=== PATIENT | female | born 1955 | race African-American/Black ===

== ENCOUNTER 2017-07-02 10:08 | Day surgery (SDC) | payer MEDICARE, MEDICAID ==
[2017-07-02] MEDS ORDERED: Zoledronic Acid 4 MG in Sodium Chloride 0.9% 100 ML IVPB SCH (10:30)
[2017-07-02 10:44] VITALS: BP 123/66; TEMP 98.2
== END 2017-07-02 11:42 | disposition home or self-care (01) ==
LOC: ONC/OP 10:08
PROVIDERS: ATTEND Internal Medicine Medical Oncology
DX: Z51.11 Encounter for antineoplastic chemotherapy (principal); C90.00 Multiple myeloma not having achieved remission; J45.909 Unspecified asthma, uncomplicated; I10 Essential (primary) hypertension; M19.90 Unspecified osteoarthritis, unspecified site; E78.5 Hyperlipidemia, unspecified; D64.9 Anemia, unspecified; Z88.5 Allergy status to narcotic agent; Z88.2 Allergy status to sulfonamides; Z88.6 Allergy status to analgesic agent
CPT/HCPCS: 36415; 80053; 82248; 83615; 83883; 84100; 84165; 84550; 85025; 86334; 96365; J3489; J7050

== ENCOUNTER 2017-07-30 11:11 | Day surgery (SDC) | payer MEDICARE, MEDICAID ==
[2017-07-30] MEDS ORDERED: Sodium Chloride 0.9% 20 ML ONE (11:40)
[2017-07-30 11:46] VITALS: BP 118/60; TEMP 99.4
[2017-07-30] MEDS ORDERED: Dexamethasone 4 MG TAB PO SCH (12:00)
[2017-07-30] MEDS ORDERED: Zoledronic Acid 4 MG in Sodium Chloride 0.9% 100 ML IVPB SCH (12:00)
== END 2017-07-30 12:38 | disposition home or self-care (01) ==
LOC: ONC/OP 11:11
PROVIDERS: ATTEND Internal Medicine Medical Oncology
DX: Z51.11 Encounter for antineoplastic chemotherapy (principal); C90.00 Multiple myeloma not having achieved remission; J45.909 Unspecified asthma, uncomplicated; M25.569 Pain in unspecified knee; G89.29 Other chronic pain; I10 Essential (primary) hypertension; E78.00 Pure hypercholesterolemia, unspecified; D64.9 Anemia, unspecified; M19.90 Unspecified osteoarthritis, unspecified site; Z88.5 Allergy status to narcotic agent; Z88.2 Allergy status to sulfonamides; Z88.8 Allergy status to other drugs, medicaments and biological substances; Z98.890 Other specified postprocedural states; Z91.81 History of falling; Z87.11 Personal history of peptic ulcer disease
CPT/HCPCS: 36415; 80053; 82248; 83615; 83883; 84100; 84165; 84550; 86334; 96365; A4216; J3489; J7050

== ENCOUNTER 2017-08-10 10:05 | Emergency (ER) | payer MEDICARE, MEDICAID ==
[2017-08-10 10:48] LABS: #Eosinphils 0.3 thou/uL (0.0-0.7); #Lymphocytes 1.6 thou/uL (1.20-3.40); #Monocytes 1.9 thou/uL (0.11-0.59); #Neutrophils 8.9 thou/uL (1.40-6.50); %Basophils 0.3 % (0.0-1.0); %Eosinophils 2.4 % (0.0-10.0); %Lymphocytes 12.5 % (21.0-51.0); %Monocytes 14.8 % (0.0-10.0); Hematocrit 30.9 % (36.0-47.0); Mean Platelet Volume 9.1 fL (7.4-10.4); Red Blood Cell (RBC) Count 3.33 mill/uL (4.20-5.40); White Blood Cell (WBC) Count 12.7 thou/uL (4.8-10.8)
[2017-08-10 11:05] LABS: ALT (SGPT) 25 U/L (8-55); AST (SGOT) 17 U/L (5-34); Alkaline Phosphatase 77 U/L (40-150); Anion Gap 13 mmol/L (10-20); BUN (Urea Nitrogen) 15 mg/dL (9.8-20.1); Bilirubin, Total 0.8 mg/dL (0.2-1.2); Calc. Creatinine Clearance 0 mL/min (70-130); Calcium 9.4 mg/dL (7.8-10.44); Carbon Dioxide 22 mmol/L (23-31); Chloride 109 mmol/L (98-107); Estimated GFR-MDRD 65; Lipase 17 U/L (8-78); Protein, Total 6.8 g/dL (6.0-8.3)
[2017-08-10 11:11] LABS: Bilirubin Negative (Negative); Blood, Urine Negative (Negative); Glucose, Urine (Dipstick) Negative (Negative); Ketone, Urine Negative (Negative); Nitrite Negative (Negative); Protein, Urine (Dipstick) 30 mg/dL (Neg-Trace); Urobilinogen 0.2 mg/dL (0.2-1.0)
[2017-08-10 11:26] LABS: RBC/HPF None Seen HPF (0-3)
[2017-08-10 11:27] LABS: Bacteria/HPF 1+ HPF (None Seen); Squamous Epithelial 0-3 HPF (0-3); WBC/HPF 0-3 HPF (0-3)
[2017-08-10] MEDS ORDERED: Acetaminophen 500 MG TAB ONE (12:10)
[2017-08-10] MEDS ORDERED: Potassium Chloride 20 MEQ TAB ONE (12:10)
--- NOTE | 2017-08-10 13:23 | CT ---
ABDOMEN AND PELVIC CT SCAN WITH IV CONTRAST: HISTORY: A 62-year-old female with suprapubic abdominal pain for several weeks with nausea, urine frequency, and dysuria. COMPARISON: 03/30/16. FINDINGS: The lung bases are clear. The liver, gallbladder, pancreas, spleen, and adrenal glands are unremark able. Small circumscribed low-attenuation foci are noted within the kidneys, statistically small cy sts. No renal calculus or acute obstruction. There is evidence for left and sigmoid colon diver ticulosis with some pericolonic fat stranding and minimal wall thickening at the left colon and sigm oid colon junction, evidence for acute diverticulitis without evidence for drainable abscess or free intraperitoneal air. Uterus and adnexa are unremarkable. No CT evidence for acute appendicitis. IMPRESSION: Evidence for acute sigmoid diverticulitis without evidence for abscess or free intraperitoneal air. Other stable findings as above. Small right paraumbilical fat-containing hernia. POS: [facility]
[2017-08-10] MEDS ORDERED: Ciprofloxacin 500 MG TAB ONE (13:55)
[2017-08-10] MEDS ORDERED: metroNIDAZOLE 250 MG TAB ONE (13:55)
[2017-08-10] MEDS ORDERED: ISOVUE-370 76%-LOCM 1 ML ONE (16:06)
== END 2017-08-10 14:12 | disposition home or self-care (01) ==
LOC: ERS 10:05
DX: K57.92 Diverticulitis of intestine, part unspecified, without perforation or abscess without bleeding (principal); E11.9 Type 2 diabetes mellitus without complications; I10 Essential (primary) hypertension; C90.00 Multiple myeloma not having achieved remission; M19.90 Unspecified osteoarthritis, unspecified site; Z79.82 Long term (current) use of aspirin; Z79.84 Long term (current) use of oral hypoglycemic drugs; Z79.899 Other long term (current) drug therapy
CPT/HCPCS: 36415; 74177; 80053; 81003; 81015; 83690; 85025; 96372

== ENCOUNTER 2017-09-03 11:11 | Day surgery (SDC) | payer MEDICARE, MEDICAID ==
[2017-09-03] MEDS ORDERED: Zoledronic Acid 4 MG in Sodium Chloride 0.9% 100 ML IVPB SCH (11:30)
[2017-09-03 11:48] VITALS: BP 121/68; TEMP 98.1
[2017-09-03] MEDS ORDERED: Sodium Chloride 0.9% 20 ML ONE (12:05)
== END 2017-09-03 13:31 | disposition home or self-care (01) ==
LOC: ONC/OP 11:11
PROVIDERS: ATTEND Internal Medicine Medical Oncology
DX: Z51.11 Encounter for antineoplastic chemotherapy (principal); C90.00 Multiple myeloma not having achieved remission; I10 Essential (primary) hypertension; Z88.5 Allergy status to narcotic agent; Z88.2 Allergy status to sulfonamides; Z98.890 Other specified postprocedural states
CPT/HCPCS: 36415; 80053; 82248; 83615; 83883; 84100; 84165; 84550; 86334; 96365; A4216; J3489; J7050

== ENCOUNTER 2017-10-01 11:46 | Day surgery (SDC) | payer MEDICARE, MEDICAID ==
[2017-10-01] MEDS ORDERED: Sodium Chloride 0.9% 20 ML ONE (11:58)
[2017-10-01 12:17] VITALS: BP 114/55; TEMP 99.3
[2017-10-01] MEDS ORDERED: Zoledronic Acid 4 MG in Sodium Chloride 0.9% 100 ML IVPB SCH (13:00)
== END 2017-10-01 13:45 | disposition home or self-care (01) ==
LOC: ONC/OP 11:46
PROVIDERS: ATTEND Internal Medicine Medical Oncology
DX: C90.00 Multiple myeloma not having achieved remission (principal); J45.909 Unspecified asthma, uncomplicated; I10 Essential (primary) hypertension; E78.5 Hyperlipidemia, unspecified; M19.90 Unspecified osteoarthritis, unspecified site; Z88.5 Allergy status to narcotic agent; Z88.2 Allergy status to sulfonamides; Z79.899 Other long term (current) drug therapy
CPT/HCPCS: 36415; 80053; 82248; 83615; 83883; 84100; 84165; 84550; 86334; 96365; A4216; J3489; J7050

== ENCOUNTER 2017-10-29 12:02 | Day surgery (SDC) | payer MEDICARE, MEDICAID ==
[2017-10-29] MEDS ORDERED: Zoledronic Acid 4 MG, Admixture Fee 1 EACH in Sodium Chloride 0.9% 100 ML IVPB SCH (12:15)
[2017-10-29] MEDS ORDERED: Sodium Chloride 0.9% 20 ML ONE (12:23)
== END 2017-10-29 13:28 | disposition home or self-care (01) ==
LOC: ONC/OP 12:02 → EDUNIT# 12:02 → ONC/OP 13:28
PROVIDERS: ATTEND Internal Medicine Medical Oncology
DX: Z51.11 Encounter for antineoplastic chemotherapy (principal); C90.00 Multiple myeloma not having achieved remission; J45.909 Unspecified asthma, uncomplicated; I10 Essential (primary) hypertension; E78.5 Hyperlipidemia, unspecified; M19.90 Unspecified osteoarthritis, unspecified site; Z88.5 Allergy status to narcotic agent; Z88.2 Allergy status to sulfonamides; Z79.899 Other long term (current) drug therapy
CPT/HCPCS: 36415; 80053; 82248; 83615; 83883; 84100; 84165; 84550; 86334; 96365; A4216; J3489; J7050

== ENCOUNTER 2017-12-10 10:16 | Day surgery (SDC) | payer MEDICARE, MEDICAID ==
[2017-12-10] MEDS ORDERED: Zoledronic Acid 4 MG, Admixture Fee 1 EACH in Sodium Chloride 0.9% 100 ML IVPB SCH (10:45)
[2017-12-10] MEDS ORDERED: Sodium Chloride 0.9% 20 ML ONE (11:17)
== END 2017-12-10 14:32 | disposition home or self-care (01) ==
LOC: ONC/OP 10:16
PROVIDERS: ATTEND Internal Medicine Medical Oncology
DX: Z51.11 Encounter for antineoplastic chemotherapy (principal); C90.00 Multiple myeloma not having achieved remission; J45.909 Unspecified asthma, uncomplicated; I10 Essential (primary) hypertension; E78.00 Pure hypercholesterolemia, unspecified; E78.5 Hyperlipidemia, unspecified; Z88.2 Allergy status to sulfonamides; Z88.5 Allergy status to narcotic agent; Z79.82 Long term (current) use of aspirin; Z79.899 Other long term (current) drug therapy
CPT/HCPCS: 96365; A4216; J3489; J7050

== ENCOUNTER 2018-01-07 11:04 | Day surgery (SDC) | payer MEDICARE, MEDICAID ==
[2018-01-07] MEDS ORDERED: Zoledronic Acid 4 MG in Sodium Chloride 0.9% 100 ML IVPB SCH (11:15)
[2018-01-07] MEDS ORDERED: Sodium Chloride 0.9% 20 ML ONE (11:19)
[2018-01-07 11:42] VITALS: BP 116/56; TEMP 98.6
== END 2018-01-07 12:21 | disposition home or self-care (01) ==
LOC: ONC/OP 11:04
PROVIDERS: ATTEND Internal Medicine Medical Oncology
DX: Z51.11 Encounter for antineoplastic chemotherapy (principal); C90.00 Multiple myeloma not having achieved remission; D63.0 Anemia in neoplastic disease; J45.909 Unspecified asthma, uncomplicated; I10 Essential (primary) hypertension; E78.00 Pure hypercholesterolemia, unspecified; E78.5 Hyperlipidemia, unspecified; Z88.5 Allergy status to narcotic agent; Z88.2 Allergy status to sulfonamides; Z79.52 Long term (current) use of systemic steroids; Z79.84 Long term (current) use of oral hypoglycemic drugs; Z79.899 Other long term (current) drug therapy
CPT/HCPCS: 80053; 82248; 82728; 83615; 83883; 84100; 84165; 84550; 86334; 96365; A4216; J3489; J7050

== ENCOUNTER 2018-02-04 11:34 | Day surgery (SDC) | payer MEDICARE, MEDICAID ==
[2018-02-04] MEDS ORDERED: Zoledronic Acid 4 MG in Sodium Chloride 0.9% 100 ML IVPB SCH (12:00)
[2018-02-04] MEDS ORDERED: Sodium Chloride 0.9% 20 ML ONE (12:38)
[2018-02-04 13:25] VITALS: BP 135/68; TEMP 98.8
== END 2018-02-04 13:41 | disposition home or self-care (01) ==
LOC: ONC/OP 11:34
PROVIDERS: ATTEND Internal Medicine Medical Oncology
DX: Z51.11 Encounter for antineoplastic chemotherapy (principal); C90.00 Multiple myeloma not having achieved remission; J45.909 Unspecified asthma, uncomplicated; I10 Essential (primary) hypertension; E78.00 Pure hypercholesterolemia, unspecified; D63.0 Anemia in neoplastic disease; E78.5 Hyperlipidemia, unspecified; M19.90 Unspecified osteoarthritis, unspecified site; Z88.2 Allergy status to sulfonamides; Z88.5 Allergy status to narcotic agent; Z79.82 Long term (current) use of aspirin; Z79.52 Long term (current) use of systemic steroids; Z79.84 Long term (current) use of oral hypoglycemic drugs; Z79.899 Other long term (current) drug therapy
CPT/HCPCS: 80053; 82248; 83615; 83883; 84100; 84165; 84550; 86334; 96365; A4216; J3489; J7050

== ENCOUNTER 2018-02-26 15:42 | Emergency (ER) | payer MEDICARE, MEDICAID ==
[2018-02-26] MEDS ORDERED: Ondansetron ODT 4 MG TAB ONE (18:00)
[2018-02-26 18:11] LABS: Bilirubin Negative (Negative); Blood, Urine Small (Negative); Clarity CLOUDY (Clear); Glucose, Urine (Dipstick) Negative (Negative); Leukocyte Negative (Negative); Nitrite Negative (Negative); Protein, Urine (Dipstick) 100 mg/dL (Neg-Trace); Specific Gravity, Urine 1.008 (1.002-1.036); Urobilinogen 0.2 mg/dL (0.2-1.0); pH, Urine 7.5 (5.0-9.0)
[2018-02-26 18:13] LABS: Bacteria/HPF Rare-Few HPF (None Seen); Hyaline Casts/LPF 0-3 HYALINE CAST LPF (0-3 Hyaline); Pathc Cast-AUWi Flag 0.14 (0-2.49); RBC/HPF 0-3 HPF (0-3)
[2018-02-26 18:14] LABS: Yeast-AUWi Flag 39.3 (0-25.0)
[2018-02-26 18:22] LABS: ALT (SGPT) 37 U/L (8-55); AST (SGOT) 29 U/L (5-34); Alkaline Phosphatase 85 U/L (40-150); Anion Gap 15 mmol/L (10-20); BUN (Urea Nitrogen) 11 mg/dL (9.8-20.1); Bilirubin, Total 0.7 mg/dL (0.2-1.2); CK (CPK) 167 U/L (29-168); Calc. Creatinine Clearance 0 mL/min (70-130); Calcium 8.8 mg/dL (7.8-10.44); Carbon Dioxide 18 mmol/L (23-31); Chloride 112 mmol/L (98-107); Estimated GFR-MDRD 40; Globulin 2.9 g/dL (2.4-3.5); Glucose 80 mg/dL (80-115); Lipase 30 U/L (8-78); Protein, Total 6.9 g/dL (6.0-8.3); Sodium 142 mmol/L (136-145)
[2018-02-26 18:26] LABS: CKMB 0.9 ng/mL (0-6.6)
[2018-02-26 18:30] LABS: Yeast-All Forms None Seen HPF (None Seen)
[2018-02-26 18:30] LABS: Potassium 2.9 mmol/L (3.5-5.1)
[2018-02-26] MEDS ORDERED: Potassium Chloride 20 MEQ TAB ONE (18:53)
[2018-02-26 18:56] LABS: Anisocytosis SLIGHT = 6-15 cells (100X) (0-5/hpf); Band 13 % (5-11); Eosinophils 2 % (0-10); Hemoglobin 8.1 g/dL (12.0-16.0); Lymphocytes 37 % (21-51); MDiff Complete? YES; Mean Corpuscular HGB CONC 33.7 g/dL (32.0-36.0); Mean Corpuscular Hemoglobin 31.6 pg (27.0-31.0); Mean Corpuscular Volume 93.6 fl (81.0-99.0); Monocytes 9 % (0-10); Neutrophil 38 % (42-75); Nucleated RBC 4 % (0); PLT Morphology Comment Appears Decreased; Platelet Count 117 thou/uL (130-400); Polychromasia SLIGHT = 2-3 cells (100X) (0-2/hpf); Red Blood Cell (RBC) Count 2.57 mill/uL (4.20-5.40); Tear Drops SLIGHT = 2-5 cells (100X) (0-1/hpf); White Blood Cell (WBC) Count 5.3 thou/uL (4.8-10.8)
== END 2018-02-26 20:25 | disposition home or self-care (01) ==
LOC: ERS 15:42
DX: R19.7 Diarrhea, unspecified (principal); E11.9 Type 2 diabetes mellitus without complications; I10 Essential (primary) hypertension; Z79.899 Other long term (current) drug therapy; Z79.82 Long term (current) use of aspirin
CPT/HCPCS: 36416; 80053; 81003; 81015; 82553; 83690; 84484; 85025; 87045; 87046; 87081; 87186; 87324; 87449; 93005; 96360; 96361; 96372; Q0162

== ENCOUNTER 2018-03-11 12:03 | Day surgery (SDC) | payer MEDICARE, MEDICAID ==
[2018-03-11] MEDS ORDERED: Zoledronic Acid 4 MG in Sodium Chloride 0.9% 100 ML IVPB SCH (12:45)
== END 2018-03-11 13:57 | disposition home or self-care (01) ==
LOC: ONC/OP 12:03
PROVIDERS: ATTEND Internal Medicine Medical Oncology
DX: Z51.11 Encounter for antineoplastic chemotherapy (principal); C90.00 Multiple myeloma not having achieved remission; J45.909 Unspecified asthma, uncomplicated; I10 Essential (primary) hypertension; E78.00 Pure hypercholesterolemia, unspecified; D64.9 Anemia, unspecified; M19.90 Unspecified osteoarthritis, unspecified site; Z88.5 Allergy status to narcotic agent; Z88.2 Allergy status to sulfonamides; Z79.899 Other long term (current) drug therapy
CPT/HCPCS: 96365; J3489; J7050

== ENCOUNTER 2018-04-08 10:16 | Day surgery (SDC) | payer MEDICARE, MEDICAID ==
[2018-04-08] MEDS ORDERED: Zoledronic Acid 4 MG in Sodium Chloride 0.9% 100 ML IVPB SCH (11:15)
[2018-04-08] MEDS ORDERED: Acetaminophen 500 MG TAB PO SCH (11:45)
[2018-04-08] MEDS ORDERED: diphenhydrAMINE 25 MG CAP PO SCH (11:45)
[2018-04-08 16:25] VITALS: TEMP 98.5
[2018-04-08 18:52] VITALS: BP 102/59
[2018-04-08 19:19] LABS: #Lymphocytes 0.9 thou/uL (1.20-3.40); #Monocytes 0.3 thou/uL (0.11-0.59); #Neutrophils 2.3 thou/uL (1.40-6.50); %Basophils 0.4 % (0.0-1.0); %Eosinophils 0.4 % (0.0-10.0); %Monocytes 8.7 % (0.0-10.0); %Neutrophils 64.5 % (42.0-75.0); Hemoglobin 9.4 g/dL (12.0-16.0); Mean Corpuscular HGB CONC 34.1 g/dL (32.0-36.0); Mean Corpuscular Hemoglobin 31.6 pg (27.0-31.0); Mean Corpuscular Volume 92.8 fL (78.0-98.0); Mean Platelet Volume 11.9 fL (7.4-10.4); Platelet Count 77 thou/uL (130-400); RBC Distribution Width 17.5 % (11.5-14.5); Red Blood Cell (RBC) Count 2.98 mill/uL (4.20-5.40); White Blood Cell (WBC) Count 3.6 thou/uL (4.8-10.8)
== END 2018-04-08 19:24 | disposition home or self-care (01) ==
LOC: ONC/OP 10:16 → ONC 10:20 → ONC/OP 19:24
PROVIDERS: ATTEND Internal Medicine Medical Oncology
DX: Z51.11 Encounter for antineoplastic chemotherapy (principal); C90.00 Multiple myeloma not having achieved remission; D64.9 Anemia, unspecified; D69.6 Thrombocytopenia, unspecified; Z88.5 Allergy status to narcotic agent; Z88.2 Allergy status to sulfonamides; R11.2 Nausea with vomiting, unspecified
CPT/HCPCS: 36415; 36430; 80053; 82248; 83615; 83883; 84100; 84165; 84550; 85025; 86850; 86900; 86901; 96365; J3489; J7050; P9016

== ENCOUNTER 2018-04-24 19:01 | Emergency (ER) | payer MEDICARE, MEDICAID ==
--- NOTE | 2018-04-24 20:14 | RAD ---
RIGHT FOOT THREE VIEWS: 04/24/18 HISTORY: Foot pain. There are arthritic changes of the first metatarsophalangeal joint. There is a calcaneal spur at the plantar fascia insertion. There is a healing distal tibial shaft fracture seen ,it appears nondisplac ed. IMPRESSION: Healing distal tibial fracture. POS: [facility]
--- NOTE | 2018-04-24 21:31 | RAD ---
RIGHT TIBIA AND FIBULA TWO VIEWS: 04/24/18 HISTORY: Patient is status post fall. An obliquely oriented essentially nondisplaced distal tibial shaft fracture is seen. There is evidenc e of some callus formation. I do not see an associated fibular fracture. There are arthritic changes of the knee. There is deformity to the medial tibial plateau; however, this does not appear to be acu te in nature. IMPRESSION: Healing nondisplaced distal tibial fracture with evidence of some periosteal change suggesting develo ping callus formation. POS: [facility]
[2018-04-24] MEDS ORDERED: Ketorolac Tromethamine 30 MG/ML VIAL ONE (22:01)
== END 2018-04-24 22:15 | disposition home or self-care (01) ==
LOC: ERS 19:01
DX: S82.301A Unspecified fracture of lower end of right tibia, initial encounter for closed fracture (principal); E11.9 Type 2 diabetes mellitus without complications; I10 Essential (primary) hypertension; C90.00 Multiple myeloma not having achieved remission; Z79.899 Other long term (current) drug therapy; Z79.82 Long term (current) use of aspirin; X58.XXXA Exposure to other specified factors, initial encounter
CPT/HCPCS: 29515; 96372; J1885

== ENCOUNTER 2018-05-03 11:13 | Inpatient (IN) | payer MEDICARE, MEDICAID ==
[2018-05-03 12:35] LABS: Bilirubin Moderate (Negative); Blood, Urine Large (Negative); Clarity CLEAR (Clear); Glucose, Urine (Dipstick) 100 mg/dL (Negative); Leukocyte Small (Negative); Nitrite Negative (Negative); Protein, Urine (Dipstick) 300 mg/dL (Neg-Trace); Specific Gravity, Urine 1.031 (1.002-1.036)
[2018-05-03 12:38] LABS: Pathc Cast-AUWi Flag 2.47 (0-2.49); RBC/HPF 0-3 HPF (0-3); WBC/HPF 0-3 HPF (0-3)
[2018-05-03 12:39] LABS: Band 21 % (5-11); Hemoglobin 10.5 g/dL (12.0-16.0); Lymphocytes 48 % (21-51); MDiff Complete? YES; Mean Corpuscular HGB CONC 33.3 g/dL (32.0-36.0); Mean Corpuscular Hemoglobin 31.8 pg (27.0-31.0); Mean Corpuscular Volume 95.6 fL (78.0-98.0); Mean Platelet Volume 10.6 fL (7.4-10.4); Metamyelocyte 1 % (0-0); Monocytes 9 % (0-10); Neutrophil 21 % (42-75); Nucleated RBC 1 % (0); Platelet Count 83 thou/uL (130-400); RBC Distribution Width 17.6 % (11.5-14.5); Red Blood Cell (RBC) Count 3.29 mill/uL (4.20-5.40); White Blood Cell (WBC) Count 1.6 thou/uL (4.8-10.8)
[2018-05-03 12:47] LABS: ALT (SGPT) 43 U/L (8-55); AST (SGOT) 68 U/L (5-34); Albumin 4.1 g/dL (3.4-4.8); Alkaline Phosphatase 102 U/L (40-150); Anion Gap 17 mmol/L (10-20); BUN (Urea Nitrogen) 17 mg/dL (9.8-20.1); Bacteria/HPF 3+ HPF (None Seen); Bilirubin, Total 1.7 mg/dL (0.2-1.2); Calc. Creatinine Clearance 0 mL/min (70-130); Calcium 8.9 mg/dL (7.8-10.44); Carbon Dioxide 13 mmol/L (23-31); Chloride 111 mmol/L (98-107); Estimated GFR-MDRD 64; Globulin 3.5 g/dL (2.4-3.5); Glucose 157 mg/dL (80-115); Other Casts/LPF 4-6 FINELY GRAN LPF (0-3 Hyaline); Potassium 3.2 mmol/L (3.5-5.1); Protein, Total 7.6 g/dL (6.0-8.3); Sodium 138 mmol/L (136-145)
[2018-05-03 12:48] LABS: Renal Epithelial None Seen HPF (0-3); Transitional Epithelial NONE SEEN HPF (0-3)
[2018-05-03] MEDS ORDERED: ISOVUE-370 76%-LOCM 1 ML ONE (12:50)
[2018-05-03] MEDS ORDERED: cefTRIAXone\\ROCEPHIN 1 GM VIAL ONE (13:06)
[2018-05-03] MEDS ORDERED: Sodium Chloride 0.9% 100 ML ONE (13:06)
--- NOTE | 2018-05-03 13:23 | RAD ---
CHEST 1 VIEW: Date: 05/03/18 HISTORY: Cough. COMPARISON: Chest radiograph dated 09/22/17. FINDINGS: Lungs are clear. No pneumothorax or effusion. Cardiac silhouette and mediastinal contours within norm al limits. IMPRESSION: No acute intrathoracic abnormality. POS: [facility]
--- NOTE | 2018-05-03 14:49 | CT ---
CT BRAIN NONCONTRAST: HISTORY: 63-year-old female with altered mental status. FINDINGS: There is no midline shift or any other mass effect. There is no evidence of acute intracranial hemor rhage, large cortical infarct, obstructive hydrocephalus, or extraaxial fluid collection. The calvar ium is intact. IMPRESSION: No acute intracranial findings. jodee [] POS: [facility]
[2018-05-03] MEDS ORDERED: Potassium Chloride 20 MEQ TAB ONE (14:53)
[2018-05-03] MEDS ORDERED: Insulin Regular 300 UNITS/3 ML VIAL ONE (14:53)
[2018-05-03] MEDS ORDERED: Ondansetron ODT 4 MG TAB SL PRN (15:18)
[2018-05-03] MEDS ORDERED: Ondansetron HCl/PF 4 MG/2 ML Vial IVP PRN ×2 (15:18→15:56)
[2018-05-03] MEDS ORDERED: Acetaminophen 325 MG TAB PO PRN (15:18)
[2018-05-03 15:53] VITALS: BMI 44.9
[2018-05-03] MEDS ORDERED: Dextrose 5% in Water 1,000 ML IV PRN (15:56)
[2018-05-03] MEDS ORDERED: Zolpidem Tartrate 5 MG TAB PO PRN (15:56)
[2018-05-03] MEDS ORDERED: Chloraseptic Spray 180 ml Bottle PO PRN (15:56)
[2018-05-03] MEDS ORDERED: hydrALAZINE 20 MG/ML VIAL SLOW IVP PRN (15:56)
[2018-05-03] MEDS ORDERED: Senokot 8.6 MG TAB PO PRN (15:56)
[2018-05-03] MEDS ORDERED: Artificial Tear Sol 15 ML BOT EA EYE PRN (15:56)
[2018-05-03] MEDS ORDERED: HumaLOG 300 UNITS/3 ML VIAL SC PRN ×2 (15:56)
[2018-05-03] MEDS ORDERED: Ondansetron ODT 4 MG TAB PO PRN (15:56)
[2018-05-03] MEDS ORDERED: Loratadine 10 MG TAB PO PRN (15:56)
[2018-05-03] MEDS ORDERED: Loperamide HCl 2 MG CAP PO PRN (15:56)
[2018-05-03] MEDS ORDERED: Sodium Chloride 0.65% Nasal 44 ML BOT EA NARE PRN (15:56)
[2018-05-03] MEDS ORDERED: Milk Of Magnesia 30 ML UDCUP PO PRN (15:56)
[2018-05-03] MEDS ORDERED: Diabetic Tussin 200 MG/10 ML UDCUP PO PRN (15:56)
[2018-05-03] MEDS ORDERED: Mag-Al 1200 mg/1200 mg/30 ML UDCUP PO PRN (15:56)
[2018-05-03] MEDS ORDERED: Eucerin (Mineral Oil/Petrolatum,White) 30 gm Jar TOP PRN (15:56)
--- NOTE | 2018-05-03 15:56 | HP ---
PRIMARY CARE PHYSICIAN: Dr. Brian Craig. REASON FOR ADMISSION: Sepsis with acute organ dysfunction, acute encephalopathy , urinary tract infection. HISTORY OF PRESENT ILLNESS: A 63-year-old -Turkish female, who has multiple medical problems including multiple myeloma, diabetes type 2, hypertension, who lives at home with her son. The patient was seen last normal yesterday. Today, the patient's son noticed that she was lethargic, sleepy, and not following command. She was incoherent and appeared confused. She was incontinent at home. Patient is now able to provide some history, but not reliable history. The patient reports that for last 2-3 days, she was having fever on and off with chills. She was having increased number of frequency of urination. She denies any classic dysuria, but she reports increasing amount of frequency and incontinence of urine. She denies any stool incontinence. She denies any back pain. She denies any diarrhea, but she reports abdominal pain. She denies any melena or hematochezia. She denies any hematuria. She denies any cough, shortness of breath. She denies any pleuritic chest pain. She denies any recent travel or sick exposure. With this presentation, she was brought to the ER, the patient had a sepsis alert. She was febrile with a temperature of 102.2. She was tachycardic with pulse 124. The patient was given IV fluid and Tylenol. Subsequently, she received Rocephin 1 gram. The patient was also given potassium chloride and insulin. Her chest x-ray was unremarkable. The patient is being admitted to medical floor for sepsis. Initially, patient was tachycardic, but subsequently patient's heart rate improved to below 100. At that point, we decided to admit to medical floor. REVIEW OF SYSTEMS: The following complete review of systems was negative, unless otherwise mentioned in the HPI or below: Constitutional: Weight loss or gain, ability to conduct usual activities. Skin: Rash, itching. Eyes: Double vision, pain. ENT/Mouth: Nose bleeding, neck stiffness, pain, tenderness. Cardiovascular: Palpitations, dyspnea on exertion, orthopnea. Respiratory: Shortness of breath, wheezing, cough, hemoptysis, fever or night sweats. Gastrointestinal: Poor appetite, abdominal pain, heartburn, nausea, vomiting, constipation, or diarrhea. Genitourinary: Urgency, frequency, dysuria, nocturia. Musculoskeletal: Pain, swelling. Neurologic/Psychiatric: Anxiety, depression. Allergy/Immunologic: Skin rash, bleeding tendency. Please see my HPI for pertinent positive and negative. All other review of systems reviewed and negative except as mentioned in the HPI. The patient is able to provide review of systems history, but complete reliability is uncertain because of some incoherent and confusion. PAST MEDICAL HISTORY: Diabetes type 2, hypertension, morbid obesity, multiple myeloma, history of bronchitis, history of peptic ulcer disease, and osteoarthritis. PAST SURGICAL HISTORY: , umbilical hernia repair, left knee surgery, tubal ligation, colonoscopy in 2009, EGD. PAST PSYCHIATRIC HISTORY: Reviewed and negative. SOCIAL HISTORY: Patient lives at home with her son. No history of tobacco, alcohol or illicit drug abuse. FAMILY HISTORY: No strong family history of premature coronary artery disease, stroke or cancer. ALLERGIES: CODEINE, SULFATE, MORPHINE, SULFA DRUGS, TRAMADOL, and VICODIN. CURRENT HOME MEDICATIONS: Coreg 25 mg p.o. b.i.d., Lasix 40 mg p.o. daily, gabapentin 600 mg p.o. t.i.d., glimepiride 2 mg p.o. daily, Protonix 40 mg p.o. daily, Ambien 10 mg p.o. at bedtime, Crestor 10 mg p.o. daily at bedtime, valsartan 160 mg p.o. daily, iron 65 one tablet daily, calcium 1 tablet p.o. daily, allopurinol 300 mg p.o. daily, aspirin 81 mg p.o. daily, Restasis ophthalmic drops daily, fish oil 1 capsule daily, Integra Plus 1 capsule daily, Zofran 4 mg q.6 hourly p.r.n., and Motrin 600 mg q.8 hourly p.r.n. EMERGENCY ROOM COURSE: Patient is given 2 liter IV fluid, Rocephin 1 gram, potassium chloride 40 mEq, Novolin R 10 units. PHYSICAL EXAMINATION: VITAL SIGNS: On arrival, blood pressure 138/100, pulse 120, respiratory rate 22 , temperature 102.2, saturation 97% on room air, weight 90.7 kilograms. GENERAL: Patient is looking ill, healthy, appears elder than her stated age, tachycardic, tachypneic. HEENT: Normocephalic, atraumatic. Eyes: Pupils round, reactive to light. Extraocular muscle intact. No nystagmus. ENT: Dry mucous membrane, no oral lesion. No pharyngeal erythema, no exudate. NECK: Supple, no JVD, no meningeal signs of irritation, no bruit. LUNGS: Clear to auscultation. No wheeze, no rhonchi, no rales. No use of accessory muscles of respiration in use. CARDIAC: S1 and S2 regular, tachycardia, no murmur, no gallop, no rub. ABDOMEN: The patient does have diffuse discomfort in the lower part. No peritoneal sign, no organomegaly, no mass. BACK: Unremarkable, no point tenderness, no CVA tenderness. EXTREMITIES: Upper extremity passive movement of all joints are normal. Lower extremity: Patient does have a cast placed in the right leg, but skin within normal limits. No cellulitis, no edema. Good distal pulsation. SKIN: No skin rash. HEMATOLOGICAL: No lymphadenopathy. PSYCHIATRIC: Normal affect. NEUROLOGIC: See is moving all four limbs. She is slightly confused, but does not have any lateralization or focal neurological deficit. SIGNIFICANT LABORATORY DATA: EKG showing normal sinus rhythm, sinus tachycardia , biatrial enlargement. Chest x-ray based on my review, no acute cardiopulmonary process. CBC: WBC 1.6, hemoglobin 10.5, platelet 83. BMP: Sodium 138, potassium 3.2, chloride 111, carbon dioxide 13, anion gap 17, BUN 17 , creatinine 1.05, glucose 157, calcium 8.9. LFT: Bilirubin 1.7, AST 68, ALT 43, alkaline phosphatase is 102, albumin 4.1, lactic acid 2.3. Urinalysis suggestive of urinary tract infection. Serum ketones 0.43. ASSESSMENT AND PLAN: 1. Sepsis with acute organ dysfunction. The patient meets sepsis criteria. She has pancytopenia. She had lactic acidosis, high grade fever, tachycardia, tachypnea, and source of infection is most likely urinary tract infection, but other abdominal source needs to be excluded. Patient will receive broad spectrum antibiotic therapy with Rocephin and levofloxacin. The patient will be given IV fluid and will follow up on culture result and will change antibiotic spectrum based on culture result. Blood culture and urine culture already obtained from emergency room. We will repeat lactic acid tomorrow. will check c-diff as well given bandemia 2. Acute encephalopathy, most likely related with sepsis. At this point, in emergency room after IV fluid and antibiotic therapy, she is slightly better. She does not have any focal neurological deficit. We will continue to treat underlying sepsis and monitor neurological status. 3. Lactic acidosis, likely due to sepsis. We will repeat lactic acid level tomorrow again, patient is already on sepsis treatment with broad spectrum antibiotic and IV fluid. 4. Hypokalemia. The patient is given potassium chloride in the emergency room. We will repeat BMP and magnesium tomorrow and replace electrolytes as needed basis. 5. Metabolic acidosis, likely due to sepsis from lactic acidosis. The patient will be given IV fluid and will repeat BMP tomorrow. 6. Pancytopenia, likely related with sepsis plus history of multiple myeloma. Patient also has bandemia. We will repeat CBC tomorrow. The patient is already on broad spectrum antibiotic therapy. 7. Urinary tract infection. We are starting Rocephin and levofloxacin and based on culture result, we will change antibiotic therapy accordingly. 8. Diabetes type 2, uncontrolled. We will continue insulin as per sliding scale per protocol and will continue with Glimepiride 2 mg p.o. daily. 9. Hypertension. If blood pressure permits, then we will continue Coreg 25 mg p.o. b.i.d. and valsartan 160 mg p.o. daily. 10. Diabetic neuropathy. We will continue gabapentin 600 mg three times daily. 11. Gastroesophageal reflux disease. We will continue Protonix 40 mg p.o. daily. 12. Gout and hyperuricemia. We will continue allopurinol 300 mg p.o. daily. 13. Morbid obesity. Dietary education given, weight loss education given. 14. Deep venous thrombosis prophylaxis. No Lovenox because of low platelet count, only SCD boots. 15. Gastrointestinal prophylaxis. Patient is already on Protonix therapy. 16. Code status: The patient is FULL CODE. Patient's son is surrogate decision maker. 17. Disposition plan based on clinical course. We are expecting patient's stay in hospital more than 2 midnights. Plan of care discussed with the patient. 18. Abdominal pain. The patient does have lower abdominal pain, most likely related with her urinary tract infection, but other pathology needs to be excluded and that is why we will do CT of the abdomen and pelvis with contrast to rule out any other abdominal process like diverticulitis. MTDD
[2018-05-03] MEDS ORDERED: Gabapentin 300 MG CAP PO SCH (16:30)
[2018-05-03] MEDS ORDERED: Carvedilol 25 MG TAB PO SCH (17:00)
[2018-05-03 17:10] LABS: Lactic Acid 2.8 mmol/L (0.5-2.2)
[2018-05-03] MEDS: Sodium Chloride 0.9% 1,000 ML IV SCH (18:38)
[2018-05-03] MEDS: Acetaminophen 325 MG TAB PO PRN ×2 (19:15→23:32)
[2018-05-03] MEDS: Rosuvastatin 10 MG TAB PO SCH (22:10)
[2018-05-03] MEDS: Gabapentin 300 MG CAP PO SCH (22:10)
[2018-05-03] MEDS: Vancomycin HCl 25 MG/ML Oral PO SCH (22:11)
[2018-05-03] MEDS: Saccharomyces boulardii 250 MG CAP PO SCH (22:11)
[2018-05-04] MEDS ORDERED: cefTRIAXone\\ROCEPHIN 2 GM in Sodium Chloride 0.9% 100 ML IVPB SCH (01:00)
[2018-05-04] MEDS ORDERED: Methyl Salicylate/Menthol 85 GM TUBE TOP PRN ×2 (02:02→02:15)
[2018-05-04 04:58] LABS: Lactic Acid 1.5 mmol/L (0.5-2.2)
[2018-05-04 05:07] LABS: ALT (SGPT) 68 U/L (8-55); AST (SGOT) 154 U/L (5-34); Albumin 3.4 g/dL (3.4-4.8); Alkaline Phosphatase 88 U/L (40-150); Anion Gap 17 mmol/L (10-20); BUN (Urea Nitrogen) 17 mg/dL (9.8-20.1); Bilirubin, Total 0.7 mg/dL (0.2-1.2); Calc. Creatinine Clearance 80 mL/min (70-130); Calcium 7.8 mg/dL (7.8-10.44); Carbon Dioxide 11 mmol/L (23-31); Chloride 110 mmol/L (98-107); Estimated GFR-MDRD 55; Globulin 3.3 g/dL (2.4-3.5); Glucose 102 mg/dL (80-115); Magnesium 2.2 mg/dL (1.6-2.6); Potassium 3.6 mmol/L (3.5-5.1); Protein, Total 6.7 g/dL (6.0-8.3); Sodium 134 mmol/L (136-145)
[2018-05-04 05:19] LABS: Anisocytosis SLIGHT = 6-15 cells (100X) (0-5/hpf); Band 14 % (5-11); Hemoglobin 8.8 g/dL (12.0-16.0); Lymphocytes 50 % (21-51); MDiff Complete? YES; Mean Corpuscular HGB CONC 34.3 g/dL (32.0-36.0); Mean Corpuscular Hemoglobin 32.8 pg (27.0-31.0); Mean Corpuscular Volume 95.6 fL (78.0-98.0); Mean Platelet Volume 10.3 fL (7.4-10.4); Monocytes 13 % (0-10); Neutrophil 23 % (42-75); Nucleated RBC 2 % (0); Ovalocytes SLIGHT = 2-5 cells (100X) (0-1/hpf); PLT Morphology Comment Appears Decreased; Platelet Count 63 thou/uL (130-400); RBC Distribution Width 17.6 % (11.5-14.5); Red Blood Cell (RBC) Count 2.67 mill/uL (4.20-5.40); White Blood Cell (WBC) Count 1.7 thou/uL (4.8-10.8)
[2018-05-04] MEDS: Sodium Chloride 0.9% 1,000 ML IV SCH ×3 (06:09→14:48)
[2018-05-04] MEDS: Acetaminophen 325 MG TAB PO PRN ×3 (06:09→19:44)
[2018-05-04] MEDS ORDERED: Glimepiride 2 MG TAB PO SCH (08:00)
[2018-05-04] MEDS: Calcium Carbonate + Vit D 1 TAB PO SCH (08:13)
[2018-05-04] MEDS: Vancomycin HCl 25 MG/ML Oral PO SCH ×4 (08:13→20:55)
[2018-05-04] MEDS: Saccharomyces boulardii 250 MG CAP PO SCH ×2 (08:14→19:44)
[2018-05-04] MEDS: Allopurinol 300 MG TAB PO SCH (08:14)
[2018-05-04] MEDS: Gabapentin 300 MG CAP PO SCH ×3 (08:14→19:44)
[2018-05-04] MEDS: Ferrous Sulfate 325 MG TAB PO SCH (08:14)
--- NOTE | 2018-05-04 08:39 | CT ---
CT ABDOMEN AND PELVIS WITH CONTRAST: Date: 05/03/18 COMPARISON: 08/10/17. INDICATION: Abdominal pain. FINDINGS: No evidence of free air or ascites. Prior inflammation of the sigmoid colon has resolved. There is co lonic diverticulosis. Stable subcentimeter hypodensity involving the posterior aspect of the spleen r emains. No focal acute abnormality of the liver. Multifocal subtle hypoattenuating foci of the left k idney are again demonstrated. No overt hydronephrosis. Stable malrotation of the right kidney with a posteriorly oriented right renal pelvis is demonstrated. There is a stable hypodensity, too small to further characterize, at the lower pole of the right kidney. Abdominal aorta is nonaneurysmal. No ret roperitoneal hematoma. There are grossly stable regional lymph nodes. No consolidation or effusion at the imaged lung bases. Subtle patchy densities are likely related to volume loss. No acute osseous a bnormality visualized. IMPRESSION: 1. No definite acute process. 2. Colonic diverticulosis. 3. Additional findings are detailed above. POS: [facility]
[2018-05-04] MEDS ORDERED: Valsartan 80 MG TAB PO SCH (09:00)
[2018-05-04] MEDS ORDERED: Saccharomyces boulardii 250 MG CAP PO SCH (09:00)
[2018-05-04] MEDS ORDERED: Prevnar 13-Val Conj/PF 0.5 ML SYRINGE IM ONE (09:00)
--- NOTE | 2018-05-04 12:50 | PDOC.PN ---
- Subjective Encounter Start Date: 05/04/18 Encounter Start Time: 09:45 -: old records requested/rev pt has 2 BM, she still very weak, had fever last night, BP is low - Objective Resuscitation Status: Resuscitation Status FULL:Full Resuscitation MAR Reviewed: Yes Vital Signs & Weight: Vital Signs (12 hours) Temp Pulse Resp BP Pulse Ox 05/04/18 11:30 98.1 F 95 20 114/76 99 05/04/18 08:00 99.8 F H 101 H 20 05/04/18 07:40 99.8 F H 101 H 20 105/62 93 L 05/04/18 03:41 98.4 F 96 18 91/56 L 96 Weight Weight 230 lb I&O: 05/03/18 05/04/18 05/05/18 06:59 06:59 06:59 Intake Total 1400 Balance 1400 Result Diagrams: 05/04/18 04:05 05/04/18 04:05 Additional Labs: Accuchecks 05/04/18 05/03/18 05/03/18 03:59 19:34 16:16 POC Glucose 112 H 125 H 147 H 05/03/18 14:37 POC Glucose 161 H Phys Exam - Physical Examination Constitutional: NAD HEENT: PERRLA, moist MMs, sclera anicteric Neck: no JVD, supple Respiratory: no wheezing, no rales, no rhonchi Cardiovascular: RRR, no significant murmur, no rub Gastrointestinal: soft, non-tender, no distention, positive bowel sounds Musculoskeletal: no edema, pulses present Neurological: non-focal, normal sensation Lymphatic: no nodes Psychiatric: normal affect Skin: no rash, normal turgor Dx/Plan (1) Bacteremia due to Gram-negative bacteria Code(s): R78.81 - BACTEREMIA Status: Acute (2) Abdominal pain Code(s): R10.9 - UNSPECIFIED ABDOMINAL PAIN Status: Acute (3) C. difficile diarrhea Code(s): A04.72 - ENTEROCOLITIS D/T CLOSTRIDIUM DIFFICILE, NOT SPCF RECUR Status: Acute (4) Encephalopathy acute Code(s): G93.40 - ENCEPHALOPATHY, UNSPECIFIED Status: Acute (5) Hypokalemia Code(s): E87.6 - HYPOKALEMIA Status: Acute (6) Lactic acidosis Code(s): E87.2 - ACIDOSIS Status: Acute (7) Pancytopenia Code(s): D61.818 - OTHER PANCYTOPENIA Status: Acute (8) Sepsis with acute organ dysfunction Code(s): A41.9 - SEPSIS, UNSPECIFIED ORGANISM; R65.20 - SEVERE SEPSIS WITHOUT SEPTIC SHOCK Status: Acute (9) UTI (urinary tract infection) Status: Acute (10) Diabetes type 2, controlled Code(s): E11.9 - TYPE 2 DIABETES MELLITUS WITHOUT COMPLICATIONS Status: Chronic (11) Dyslipidemia Code(s): E78.5 - HYPERLIPIDEMIA, UNSPECIFIED Status: Chronic (12) Hypertension Code(s): I10 - ESSENTIAL (PRIMARY) HYPERTENSION Status: Chronic (13) Morbid obesity with BMI of 40.0-44.9, adult Code(s): E66.01 - MORBID (SEVERE) OBESITY DUE TO EXCESS CALORIES; Z68.41 - BODY MASS INDEX (BMI) 40.0-44.9, ADULT Status: Chronic (14) Multiple myeloma Code(s): C90.00 - MULTIPLE MYELOMA NOT HAVING ACHIEVED REMISSION Status: Chronic - Plan cont current plan of care, continue antibiotics, PT/OT * continue oral vancomycin and florastor 250 mg po bid for c-diff * continue rocephin and levaquin for now for bacteremia * continue IVF * DC coreg and valsartan for now due to low BP * follow culture * monitor labs * medication reviewed as below * symptomatic treatment. Review of Systems - Review of Systems Constitutional: fever, weakness, malaise. negative: chills, sweats, other ENT: negative: Ear Pain, Ear Discharge, Nose Pain, Nose Discharge, Nose Congestion, Mouth Pain, Mouth Swelling, Throat Pain, Throat Swelling, Other Respiratory: negative: Cough, Dry, Shortness of Breath, Hemoptysis, SOB with Excertion, Pleuritic Pain, Sputum, Wheezing Cardiovascular: negative: chest pain, palpitations, orthopnea, paroxysmal nocturnal dyspnea, edema, light headedness, other Gastrointestinal: Diarrhea. negative: Nausea, Vomiting, Abdominal Pain, Constipation, Melena, Hematochezia, Other Genitourinary: negative: Dysuria, Frequency, Incontinence, Hematuria, Retention , Other Musculoskeletal: negative: Neck Pain, Shoulder Pain, Arm Pain, Back Pain, Hand Pain, Leg Pain, Foot Pain, Other Skin: negative: Rash, Lesions, Toi, Bruising, Other - Medications/Allergies Allergies/Adverse Reactions: Allergies Allergy/AdvReac Type Severity Reaction Status Date / Time Unable to Assess Allergy Verified 05/03/18 17:22 Medications: Current Medications Acetaminophen (Tylenol) 650 mg PO Q4H PRN PRN Reason: Headache/Fever or Pain Last Admin: 05/04/18 06:09 Dose: 650 mg Al Hydroxide/Mg Hydroxide (Maalox) 30 ml PO Q6H PRN PRN Reason: Heartburn or Indigestion Allopurinol (Zyloprim) 300 mg PO DAILY [facility] Last Admin: 05/04/18 08:14 Dose: 300 mg Artificial Tears (Tears Renewed 15ml Bottle) 0 drop EA EYE PRN PRN PRN Reason: Dry Eyes Aspirin (Aspirin Chewable) 81 mg PO DAILY [facility] Last Admin: 05/04/18 08:14 Dose: 81 mg Calcium/Vitamin D (Caltrate 600 + Vit D) 1 tab PO [facility] Last Admin: 05/04/18 08:13 Dose: 1 tab Dextrose/Water (Dextrose 50%) 25 gm SLOW IVP PRN PRN PRN Reason: Hypoglycemia Ferrous Sulfate (Feosol) 325 mg PO [facility] Last Admin: 05/04/18 08:14 Dose: 325 mg Gabapentin (Neurontin) 600 mg PO TID [facility] Last Admin: 05/04/18 08:14 Dose: 600 mg Glimepiride (Amaryl) 2 mg PO [facility] Last Admin: 05/04/18 08:14 Dose: 2 mg Glucagon (Glucagon) 1 mg IM PRN PRN PRN Reason: Hypoglycemia Guaifenesin (Robitussin Sf) 200 mg PO Q4H PRN PRN Reason: Cough Hydralazine HCl (Apresoline) 10 mg SLOW IVP Q4H PRN PRN Reason: Systolic BP > 180 Ceftriaxone Sodium 2 gm/ (Sodium Chloride) 100 mls @ 200 mls/hr IVPB Q24HR@ 0100 [facility] Last Admin: 05/04/18 02:02 Dose: 100 mls Dextrose/Water (D5w) 1,000 mls @ 0 mls/hr IV .Q0M PRN; As Directed PRN Reason: Hypoglycemia Levofloxacin 750 mg/ Device 150 mls @ 100 mls/hr IVPB Q24HR@1700 [facility] Last Admin: 05/03/18 23:24 Dose: 150 mls Sodium Chloride (Normal Saline 0.9%) 1,000 mls @ 125 mls/hr IV .Q8H [facility] Last Admin: 05/04/18 08:14 Dose: Not Given Insulin Human Lispro (Humalog) 0 units SC .MODERATE SLIDING SC PRN PRN Reason: Moderate Correctional Scale Insulin Human Lispro (Humalog) 0 units SC .BEDTIME SLIDING SC PRN PRN Reason: Bedtime Correctional Scale Loperamide HCl (Imodium) 2 mg PO PRN PRN PRN Reason: Diarrhea/Loose Stools Loratadine (Claritin) 10 mg PO DAILYPRN PRN PRN Reason: Sinus Symptoms Magnesium Hydroxide (Milk Of Magnesium) 30 ml PO DAILYPRN PRN PRN Reason: Constipation Menthol/Methyl Salicylate (Muscle Rub Cream (Bengay)) 0 gm TOP PRN PRN PRN Reason: Muscle Pain Last Admin: 05/04/18 02:39 Dose: 10 gm Mineral Oil/White Petrolatum (Eucerin Cream) 0 gm TOP BIDPRN PRN PRN Reason: Dry Skin Ondansetron HCl (Zofran Odt) 4 mg PO Q6H PRN PRN Reason: Nausea/Vomiting Ondansetron HCl (Zofran) 4 mg IVP Q6H PRN PRN Reason: Nausea/Vomiting Pantoprazole Sodium (Protonix) 40 mg PO DAILY [facility] Last Admin: 05/04/18 08:14 Dose: 40 mg Phenol (Chloraseptic Russell 180 Ml Bot) 0 ml PO PRN PRN PRN Reason: Sore Throat Rosuvastatin Calcium (Crestor) 10 mg PO [facility] Last Admin: 05/03/18 22:10 Dose: 10 mg Saccharomyces Boulardii (Florastor) 250 mg PO BID [facility] Last Admin: 05/04/18 08:14 Dose: 250 mg Senna (Senokot) 2 tab PO HSPRN PRN PRN Reason: Constipation Sodium Chloride ([place] Nasal Russell 0.65%) 0 ml EA NARE QIDPRN PRN PRN Reason: Nasal Congestion Vancomycin HCl (First Vancomycin) 125 mg PO QID [facility] Last Admin: 05/04/18 12:02 Dose: 125 mg Zolpidem Tartrate (Ambien) 5 mg PO HSPRN PRN PRN Reason: Insomnia Last Admin: 05/04/18 02:40 Dose: 5 mg
[2018-05-04] MEDS: Rosuvastatin 10 MG TAB PO SCH (19:43)
[2018-05-04] MEDS: Dextrose 50% Abboject 50 ML SYRINGE SLOW IVP PRN (20:55)
[2018-05-05] MEDS: cefTRIAXone\\ROCEPHIN 2 GM in Sodium Chloride 0.9% 100 ML IVPB SCH (00:18)
[2018-05-05] MEDS: Sodium Chloride 0.9% 1,000 ML IV SCH (00:19)
[2018-05-05] MEDS: Dextrose 50% Abboject 50 ML SYRINGE SLOW IVP PRN (00:29)
[2018-05-05] MEDS: Dextrose 5 % And 0.9 % NaCl 1,000 ML IV SCH ×3 (00:54→16:57)
[2018-05-05] MEDS: Vancomycin HCl 25 MG/ML Oral PO SCH ×4 (07:46→22:05)
[2018-05-05] MEDS: Gabapentin 300 MG CAP PO SCH ×3 (07:47→22:04)
[2018-05-05] MEDS: Saccharomyces boulardii 250 MG CAP PO SCH ×2 (07:47→22:04)
[2018-05-05] MEDS: Calcium Carbonate + Vit D 1 TAB PO SCH (07:47)
[2018-05-05] MEDS: Ferrous Sulfate 325 MG TAB PO SCH (07:48)
[2018-05-05] MEDS: Allopurinol 300 MG TAB PO SCH (07:48)
[2018-05-05 08:20] LABS: Hemoglobin 8.3 g/dL (12.0-16.0); Mean Corpuscular HGB CONC 33.4 g/dL (32.0-36.0); Mean Corpuscular Hemoglobin 31.9 pg (27.0-31.0); Mean Corpuscular Volume 95.7 fL (78.0-98.0); Mean Platelet Volume 9.2 fL (7.4-10.4); Platelet Count 64 thou/uL (130-400); RBC Distribution Width 17.2 % (11.5-14.5); Red Blood Cell (RBC) Count 2.59 mill/uL (4.20-5.40); White Blood Cell (WBC) Count 2.7 thou/uL (4.8-10.8)
[2018-05-05 08:37] LABS: ALT (SGPT) 139 U/L (8-55); AST (SGOT) 223 U/L (5-34); Albumin 3.2 g/dL (3.4-4.8); Alkaline Phosphatase 112 U/L (40-150); Anion Gap 11 mmol/L (10-20); BUN (Urea Nitrogen) 7 mg/dL (9.8-20.1); Bilirubin, Total 0.5 mg/dL (0.2-1.2); Calc. Creatinine Clearance 123 mL/min (70-130); Calcium 7.9 mg/dL (7.8-10.44); Carbon Dioxide 17 mmol/L (23-31); Chloride 114 mmol/L (98-107); Estimated GFR-MDRD Greater than 90; Globulin 3.1 g/dL (2.4-3.5); Glucose 93 mg/dL (80-115); Protein, Total 6.3 g/dL (6.0-8.3); Sodium 139 mmol/L (136-145)
[2018-05-05 08:42] LABS: Potassium 2.8 mmol/L (3.5-5.1)
[2018-05-05 10:22] LABS: Band 14 % (5-11); Eosinophils 4 % (0-10); Lymphocytes 50 % (21-51); MDiff Complete? YES; Monocytes 17 % (0-10); Neutrophil 15 % (42-75); Ovalocytes SLIGHT = 2-5 cells (100X) (0-1/hpf); PLT Morphology Comment Appears Decreased; Polychromasia SLIGHT = 2-3 cells (100X) (0-2/hpf); Tear Drops SLIGHT = 2-5 cells (100X) (0-1/hpf)
[2018-05-05] MEDS: Famotidine 20 MG TAB PO SCH ×2 (10:25→22:04)
--- NOTE | 2018-05-05 14:21 | PDOC.PN ---
- Subjective Encounter Start Date: 05/05/18 Encounter Start Time: 09:30 Patient seen and examined. No new complaints. No overnight events - Objective Resuscitation Status: Resuscitation Status FULL:Full Resuscitation MAR Reviewed: Yes Vital Signs & Weight: Vital Signs (12 hours) Temp Pulse Resp BP BP Pulse Ox 05/05/18 08:00 98.0 F 95 22 H 125/79 97 05/05/18 04:11 97.4 F L 85 20 118/67 99 Weight Admit Weight 230 lb Weight 230 lb I&O: 05/04/18 05/05/18 05/06/18 06:59 06:59 06:59 Intake Total 1400 3620 600 Balance 1400 3620 600 Result Diagrams: 05/05/18 08:07 05/05/18 08:07 Additional Labs: Accuchecks 05/05/18 05/05/18 05/05/18 11:10 04:16 01:14 POC Glucose 136 H 98 118 H 05/05/18 05/04/18 05/04/18 00:18 22:23 20:20 POC Glucose 36 L* 80 51 L* 05/04/18 05/04/18 05/04/18 19:06 17:27 15:58 POC Glucose 49 L* 76 47 L* 05/04/18 10:53 POC Glucose 94 Phys Exam - Physical Examination Constitutional: NAD HEENT: PERRLA, moist MMs, sclera anicteric Neck: no JVD, supple Respiratory: no wheezing, no rales, no rhonchi Cardiovascular: RRR, no significant murmur, no rub Gastrointestinal: soft, non-tender, no distention, positive bowel sounds Musculoskeletal: pulses present, edema present Neurological: non-focal, normal sensation Lymphatic: no nodes Psychiatric: normal affect Skin: no rash, normal turgor Dx/Plan (1) Bacteremia due to Gram-negative bacteria Code(s): R78.81 - BACTEREMIA Status: Acute (2) Abdominal pain Code(s): R10.9 - UNSPECIFIED ABDOMINAL PAIN Status: Acute (3) C. difficile diarrhea Code(s): A04.72 - ENTEROCOLITIS D/T CLOSTRIDIUM DIFFICILE, NOT SPCF RECUR Status: Acute (4) Encephalopathy acute Code(s): G93.40 - ENCEPHALOPATHY, UNSPECIFIED Status: Acute (5) Hypokalemia Code(s): E87.6 - HYPOKALEMIA Status: Acute (6) Lactic acidosis Code(s): E87.2 - ACIDOSIS Status: Acute (7) Pancytopenia Code(s): D61.818 - OTHER PANCYTOPENIA Status: Acute (8) Sepsis with acute organ dysfunction Code(s): A41.9 - SEPSIS, UNSPECIFIED ORGANISM; R65.20 - SEVERE SEPSIS WITHOUT SEPTIC SHOCK Status: Acute (9) UTI (urinary tract infection) Status: Acute (10) Diabetes type 2, controlled Code(s): E11.9 - TYPE 2 DIABETES MELLITUS WITHOUT COMPLICATIONS Status: Chronic (11) Dyslipidemia Code(s): E78.5 - HYPERLIPIDEMIA, UNSPECIFIED Status: Chronic (12) Hypertension Code(s): I10 - ESSENTIAL (PRIMARY) HYPERTENSION Status: Chronic (13) Morbid obesity with BMI of 40.0-44.9, adult Code(s): E66.01 - MORBID (SEVERE) OBESITY DUE TO EXCESS CALORIES; Z68.41 - BODY MASS INDEX (BMI) 40.0-44.9, ADULT Status: Chronic (14) Multiple myeloma Code(s): C90.00 - MULTIPLE MYELOMA NOT HAVING ACHIEVED REMISSION Status: Chronic (15) Hypoglycemia associated with type 2 diabetes mellitus Code(s): E11.649 - TYPE 2 DIABETES MELLITUS WITH HYPOGLYCEMIA WITHOUT COMA Status: Acute - Plan cont current plan of care, continue antibiotics * will consult ID * continue rocephin and levaquin * continue oral vancomycin * dc glimepiride * continue dextrose ns for hypoglycemia * medication reviewed as below * symptomatic treatment * continue PT. Review of Systems - Review of Systems Eyes: negative: Pain, Vision Change, Conjunctivae Inflammation, Eyelid Inflammation, Redness, Other ENT: negative: Ear Pain, Ear Discharge, Nose Pain, Nose Discharge, Nose Congestion, Mouth Pain, Mouth Swelling, Throat Pain, Throat Swelling, Other Respiratory: negative: Cough, Dry, Shortness of Breath, Hemoptysis, SOB with Excertion, Pleuritic Pain, Sputum, Wheezing Cardiovascular: negative: chest pain, palpitations, orthopnea, paroxysmal nocturnal dyspnea, edema, light headedness, other Gastrointestinal: Diarrhea. negative: Nausea, Vomiting, Abdominal Pain, Constipation, Melena, Hematochezia, Other Genitourinary: negative: Dysuria, Frequency, Incontinence, Hematuria, Retention , Other Musculoskeletal: negative: Neck Pain, Shoulder Pain, Arm Pain, Back Pain, Hand Pain, Leg Pain, Foot Pain, Other Skin: negative: Rash, Lesions, Toi, Bruising, Other - Medications/Allergies Allergies/Adverse Reactions: Allergies Allergy/AdvReac Type Severity Reaction Status Date / Time codeine Allergy Verified 05/04/18 16:21 morphine Allergy Verified 05/04/18 16:21 Sulfa (Sulfonamide Allergy Verified 05/04/18 16:21 Antibiotics) tramadol Allergy Verified 05/04/18 16:21 Medications: Current Medications Acetaminophen (Tylenol) 650 mg PO Q4H PRN PRN Reason: Headache/Fever or Pain Last Admin: 05/04/18 19:44 Dose: 650 mg Al Hydroxide/Mg Hydroxide (Maalox) 30 ml PO Q6H PRN PRN Reason: Heartburn or Indigestion Allopurinol (Zyloprim) 300 mg PO DAILY [facility] Last Admin: 05/05/18 07:48 Dose: 300 mg Artificial Tears (Tears Renewed 15ml Bottle) 0 drop EA EYE PRN PRN PRN Reason: Dry Eyes Aspirin (Aspirin Chewable) 81 mg PO DAILY [facility] Last Admin: 05/05/18 07:48 Dose: 81 mg Calcium/Vitamin D (Caltrate 600 + Vit D) 1 tab PO [facility] Last Admin: 05/05/18 07:47 Dose: 1 tab Dextrose/Water (Dextrose 50%) 25 gm SLOW IVP PRN PRN PRN Reason: Hypoglycemia Last Admin: 05/05/18 00:29 Dose: 25 gm Famotidine (Pepcid) 20 mg PO BID [facility] Last Admin: 05/05/18 10:25 Dose: Not Given Ferrous Sulfate (Feosol) 325 mg PO [facility] Last Admin: 05/05/18 07:48 Dose: 325 mg Gabapentin (Neurontin) 600 mg PO TID [facility] Last Admin: 05/05/18 07:47 Dose: 600 mg Glucagon (Glucagon) 1 mg IM PRN PRN PRN Reason: Hypoglycemia Guaifenesin (Robitussin Sf) 200 mg PO Q4H PRN PRN Reason: Cough Hydralazine HCl (Apresoline) 10 mg SLOW IVP Q4H PRN PRN Reason: Systolic BP > 180 Dextrose/Water (D5w) 1,000 mls @ 0 mls/hr IV .Q0M PRN; As Directed PRN Reason: Hypoglycemia Levofloxacin 750 mg/ Device 150 mls @ 100 mls/hr IVPB Q24HR@1700 [facility] Last Admin: 05/04/18 16:16 Dose: 150 mls Ceftriaxone Sodium 2 gm/ (Sodium Chloride) 100 mls @ 200 mls/hr IVPB 0100 [facility] Last Admin: 05/05/18 00:18 Dose: 100 mls Dextrose/Sodium Chloride (D5 0.9% Ns) 1,000 mls @ 125 mls/hr IV .Q8H [facility] Last Admin: 05/05/18 07:49 Dose: 1,000 mls Insulin Human Lispro (Humalog) 0 units SC .MODERATE SLIDING SC PRN PRN Reason: Moderate Correctional Scale Insulin Human Lispro (Humalog) 0 units SC .BEDTIME SLIDING SC PRN PRN Reason: Bedtime Correctional Scale Loperamide HCl (Imodium) 2 mg PO PRN PRN PRN Reason: Diarrhea/Loose Stools Loratadine (Claritin) 10 mg PO DAILYPRN PRN PRN Reason: Sinus Symptoms Magnesium Hydroxide (Milk Of Magnesium) 30 ml PO DAILYPRN PRN PRN Reason: Constipation Menthol/Methyl Salicylate (Muscle Rub Cream (Bengay)) 0 gm TOP PRN PRN PRN Reason: Muscle Pain Last Admin: 05/04/18 02:39 Dose: 10 gm Mineral Oil/White Petrolatum (Eucerin Cream) 0 gm TOP BIDPRN PRN PRN Reason: Dry Skin Ondansetron HCl (Zofran Odt) 4 mg PO Q6H PRN PRN Reason: Nausea/Vomiting Ondansetron HCl (Zofran) 4 mg IVP Q6H PRN PRN Reason: Nausea/Vomiting Phenol (Chloraseptic [place] 180 Ml Bot) 0 ml PO PRN PRN PRN Reason: Sore Throat Potassium Chloride (K-Dur) 40 meq PO BID-[facility] Rosuvastatin Calcium (Crestor) 10 mg PO [facility] Last Admin: 05/04/18 19:43 Dose: 10 mg Saccharomyces Boulardii (Florastor) 250 mg PO BID [facility] Last Admin: 05/05/18 07:47 Dose: 250 mg Senna (Senokot) 2 tab PO HSPRN PRN PRN Reason: Constipation Sodium Chloride ([place] Nasal [place] 0.65%) 0 ml EA NARE QIDPRN PRN PRN Reason: Nasal Congestion Vancomycin HCl (First Vancomycin) 125 mg PO QID [facility] Last Admin: 05/05/18 12:37 Dose: 125 mg Zolpidem Tartrate (Ambien) 5 mg PO HSPRN PRN PRN Reason: Insomnia Last Admin: 05/04/18 02:40 Dose: 5 mg
[2018-05-05] MEDS: Potassium Chloride 20 MEQ TAB PO SCH (16:56)
[2018-05-05] MEDS: Acetaminophen 325 MG TAB PO PRN (22:02)
[2018-05-05] MEDS: Rosuvastatin 10 MG TAB PO SCH (22:03)
[2018-05-06] MEDS: cefTRIAXone\\ROCEPHIN 2 GM in Sodium Chloride 0.9% 100 ML IVPB SCH (00:16)
[2018-05-06] MEDS: Dextrose 5 % And 0.9 % NaCl 1,000 ML IV SCH (00:24)
[2018-05-06 04:50] LABS: Anion Gap 10 mmol/L (10-20); BUN (Urea Nitrogen) 5 mg/dL (9.8-20.1); Calc. Creatinine Clearance 146 mL/min (70-130); Calcium 7.8 mg/dL (7.8-10.44); Carbon Dioxide 18 mmol/L (23-31); Chloride 118 mmol/L (98-107); Estimated GFR-MDRD Greater than 90; Glucose 158 mg/dL (80-115); Potassium 3.3 mmol/L (3.5-5.1); Sodium 143 mmol/L (136-145)
[2018-05-06 05:43] LABS: Anisocytosis SLIGHT = 6-15 cells (100X) (0-5/hpf); Band 10 % (5-11); Elliptocytes SLIGHT = 2-5 cells (100X) (0-1/hpf); Eosinophils 2 % (0-10); Hemoglobin 7.3 g/dL (12.0-16.0); Lymphocytes 44 % (21-51); MDiff Complete? YES; Mean Corpuscular HGB CONC 33.9 g/dL (32.0-36.0); Mean Corpuscular Hemoglobin 32.2 pg (27.0-31.0); Mean Platelet Volume 9.3 fL (7.4-10.4); Monocytes 18 % (0-10); Neutrophil 26 % (42-75); PLT Morphology Comment Appears Decreased; Platelet Count 72 thou/uL (130-400); RBC Distribution Width 17.4 % (11.5-14.5); Red Blood Cell (RBC) Count 2.27 mill/uL (4.20-5.40); White Blood Cell (WBC) Count 3.3 thou/uL (4.8-10.8)
[2018-05-06] MEDS: Vancomycin HCl 25 MG/ML Oral PO SCH ×4 (08:02→20:19)
[2018-05-06] MEDS: Saccharomyces boulardii 250 MG CAP PO SCH ×2 (08:03→20:19)
[2018-05-06] MEDS: Ferrous Sulfate 325 MG TAB PO SCH (08:03)
[2018-05-06] MEDS: Famotidine 20 MG TAB PO SCH ×2 (08:03→20:19)
[2018-05-06] MEDS: Calcium Carbonate + Vit D 1 TAB PO SCH (08:03)
[2018-05-06] MEDS: Gabapentin 300 MG CAP PO SCH ×3 (08:03→20:19)
[2018-05-06] MEDS: Allopurinol 300 MG TAB PO SCH (08:03)
[2018-05-06] MEDS: Potassium Chloride 20 MEQ TAB PO SCH ×2 (08:03→16:41)
--- NOTE | 2018-05-06 11:51 | PDOC.PN ---
- Subjective Encounter Start Date: 05/06/18 Encounter Start Time: 09:15 Patient seen and examined. No new complaints. No overnight events pt denies diarrhoea, feels better, afebrile - Objective Resuscitation Status: Resuscitation Status FULL:Full Resuscitation MAR Reviewed: Yes Vital Signs & Weight: Vital Signs (12 hours) Temp Pulse Resp BP BP Pulse Ox 05/06/18 11:41 98.4 F 98 20 131/79 100 05/06/18 08:42 130/86 05/06/18 08:00 98.1 F 94 18 95 05/06/18 04:00 98.4 F 95 20 115/71 96 05/06/18 00:30 98.4 F 96 20 116/73 97 Weight Admit Weight 230 lb Weight 230 lb I&O: 05/05/18 05/06/18 05/07/18 06:59 06:59 06:59 Intake Total 3620 840 1490 Output Total 2 0 Balance 3620 838 1490 Result Diagrams: 05/06/18 03:28 05/06/18 03:28 Additional Labs: Accuchecks 05/06/18 05/05/18 05/05/18 04:20 19:32 15:51 POC Glucose 168 H 154 H 131 H Phys Exam - Physical Examination Constitutional: NAD HEENT: PERRLA, moist MMs, sclera anicteric Neck: no JVD, supple Respiratory: no wheezing, no rales, no rhonchi Cardiovascular: RRR, no significant murmur, no rub Gastrointestinal: soft, non-tender, no distention, positive bowel sounds obesity+ Musculoskeletal: pulses present, edema present Neurological: non-focal, normal sensation Psychiatric: normal affect Dx/Plan (1) Bacteremia due to Gram-negative bacteria Code(s): R78.81 - BACTEREMIA Status: Acute Comment: salmonela (2) Abdominal pain Code(s): R10.9 - UNSPECIFIED ABDOMINAL PAIN Status: Resolved (3) C. difficile diarrhea Code(s): A04.72 - ENTEROCOLITIS D/T CLOSTRIDIUM DIFFICILE, NOT SPCF RECUR Status: Acute (4) Encephalopathy acute Code(s): G93.40 - ENCEPHALOPATHY, UNSPECIFIED Status: Resolved (5) Hypokalemia Code(s): E87.6 - HYPOKALEMIA Status: Acute (6) Lactic acidosis Code(s): E87.2 - ACIDOSIS Status: Acute (7) Pancytopenia Code(s): D61.818 - OTHER PANCYTOPENIA Status: Acute (8) Sepsis with acute organ dysfunction Code(s): A41.9 - SEPSIS, UNSPECIFIED ORGANISM; R65.20 - SEVERE SEPSIS WITHOUT SEPTIC SHOCK Status: Acute (9) UTI (urinary tract infection) Status: Acute (10) Diabetes type 2, controlled Code(s): E11.9 - TYPE 2 DIABETES MELLITUS WITHOUT COMPLICATIONS Status: Chronic (11) Dyslipidemia Code(s): E78.5 - HYPERLIPIDEMIA, UNSPECIFIED Status: Chronic (12) Hypertension Code(s): I10 - ESSENTIAL (PRIMARY) HYPERTENSION Status: Chronic (13) Morbid obesity with BMI of 40.0-44.9, adult Code(s): E66.01 - MORBID (SEVERE) OBESITY DUE TO EXCESS CALORIES; Z68.41 - BODY MASS INDEX (BMI) 40.0-44.9, ADULT Status: Chronic (14) Multiple myeloma Code(s): C90.00 - MULTIPLE MYELOMA NOT HAVING ACHIEVED REMISSION Status: Chronic - Plan cont current plan of care, continue antibiotics, 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 Review of Systems - Review of Systems Eyes: negative: Pain, Vision Change, Conjunctivae Inflammation, Eyelid Inflammation, Redness, Other ENT: negative: Ear Pain, Ear Discharge, Nose Pain, Nose Discharge, Nose Congestion, Mouth Pain, Mouth Swelling, Throat Pain, Throat Swelling, Other Respiratory: negative: Cough, Dry, Shortness of Breath, Hemoptysis, SOB with Excertion, Pleuritic Pain, Sputum, Wheezing Cardiovascular: negative: chest pain, palpitations, orthopnea, paroxysmal nocturnal dyspnea, edema, light headedness, other Gastrointestinal: negative: Nausea, Vomiting, Abdominal Pain, Diarrhea, Constipation, Melena, Hematochezia, Other Genitourinary: negative: Dysuria, Frequency, Incontinence, Hematuria, Retention , Other Musculoskeletal: negative: Neck Pain, Shoulder Pain, Arm Pain, Back Pain, Hand Pain, Leg Pain, Foot Pain, Other - Medications/Allergies Allergies/Adverse Reactions: Allergies Allergy/AdvReac Type Severity Reaction Status Date / Time codeine Allergy Verified 05/04/18 16:21 morphine Allergy Verified 05/04/18 16:21 Sulfa (Sulfonamide Allergy Verified 05/04/18 16:21 Antibiotics) tramadol Allergy Verified 05/04/18 16:21 Medications: Current Medications Acetaminophen (Tylenol) 650 mg PO Q4H PRN PRN Reason: Headache/Fever or Pain Last Admin: 05/05/18 22:02 Dose: 650 mg Al Hydroxide/Mg Hydroxide (Maalox) 30 ml PO Q6H PRN PRN Reason: Heartburn or Indigestion Allopurinol (Zyloprim) 300 mg PO DAILY [facility] Last Admin: 05/06/18 08:03 Dose: 300 mg Artificial Tears (Tears Renewed 15ml Bottle) 0 drop EA EYE PRN PRN PRN Reason: Dry Eyes Aspirin (Aspirin Chewable) 81 mg PO DAILY [facility] Last Admin: 05/06/18 08:03 Dose: 81 mg Calcium/Vitamin D (Caltrate 600 + Vit D) 1 tab PO [facility] Last Admin: 05/06/18 08:03 Dose: 1 tab Dextrose/Water (Dextrose 50%) 25 gm SLOW IVP PRN PRN PRN Reason: Hypoglycemia Last Admin: 05/05/18 00:29 Dose: 25 gm Famotidine (Pepcid) 20 mg PO BID [facility] Last Admin: 05/06/18 08:03 Dose: 20 mg Ferrous Sulfate (Feosol) 325 mg PO [facility] Last Admin: 05/06/18 08:03 Dose: 325 mg Gabapentin (Neurontin) 600 mg PO TID [facility] Last Admin: 05/06/18 08:03 Dose: 600 mg Glucagon (Glucagon) 1 mg IM PRN PRN PRN Reason: Hypoglycemia Guaifenesin (Robitussin Sf) 200 mg PO Q4H PRN PRN Reason: Cough Hydralazine HCl (Apresoline) 10 mg SLOW IVP Q4H PRN PRN Reason: Systolic BP > 180 Dextrose/Water (D5w) 1,000 mls @ 0 mls/hr IV .Q0M PRN PRN Reason: Hypoglycemia Ceftriaxone Sodium 2 gm/ (Sodium Chloride) 100 mls @ 200 mls/hr IVPB 0100 [facility] Last Admin: 05/06/18 00:16 Dose: 100 mls Insulin Human Lispro (Humalog) 0 units SC .MODERATE SLIDING SC PRN PRN Reason: Moderate Correctional Scale Insulin Human Lispro (Humalog) 0 units SC .BEDTIME SLIDING SC PRN PRN Reason: Bedtime Correctional Scale Loperamide HCl (Imodium) 2 mg PO PRN PRN PRN Reason: Diarrhea/Loose Stools Loratadine (Claritin) 10 mg PO DAILYPRN PRN PRN Reason: Sinus Symptoms Magnesium Hydroxide (Milk Of Magnesium) 30 ml PO DAILYPRN PRN PRN Reason: Constipation Menthol/Methyl Salicylate (Muscle Rub Cream (Bengay)) 0 gm TOP PRN PRN PRN Reason: Muscle Pain Last Admin: 05/04/18 02:39 Dose: 10 gm Mineral Oil/White Petrolatum (Eucerin Cream) 0 gm TOP BIDPRN PRN PRN Reason: Dry Skin Ondansetron HCl (Zofran Odt) 4 mg PO Q6H PRN PRN Reason: Nausea/Vomiting Ondansetron HCl (Zofran) 4 mg IVP Q6H PRN PRN Reason: Nausea/Vomiting Phenol (Chloraseptic [place] 180 Ml Bot) 0 ml PO PRN PRN PRN Reason: Sore Throat Potassium Chloride (K-Dur) 40 meq PO BID-[facility] Last Admin: 05/06/18 08:03 Dose: 40 meq Rosuvastatin Calcium (Crestor) 10 mg PO [facility] Last Admin: 05/05/18 22:03 Dose: 10 mg Saccharomyces Boulardii (Florastor) 250 mg PO BID [facility] Last Admin: 05/06/18 08:03 Dose: 250 mg Senna (Senokot) 2 tab PO HSPRN PRN PRN Reason: Constipation Sodium Chloride ([place] Nasal [place] 0.65%) 0 ml EA NARE QIDPRN PRN PRN Reason: Nasal Congestion Vancomycin HCl (First Vancomycin) 125 mg PO QID [facility] Last Admin: 05/06/18 08:02 Dose: 125 mg Zolpidem Tartrate (Ambien) 5 mg PO HSPRN PRN PRN Reason: Insomnia Last Admin: 05/04/18 02:40 Dose: 5 mg
--- NOTE | 2018-05-06 18:18 | CON ---
DATE OF CONSULTATION: 05/06/2018 REASON FOR CONSULTATION: Multiple myeloma. HISTORY OF PRESENT ILLNESS: Ms. Huggins is a pleasant 63-year-old -[place] female, who is unde rgoing treatment for multiple myeloma with Pomalyst and dexamethasone. She presented to the emergenc y room on 05/03/2018 with altered mental status, lethargy. She had a fever of 102.2. She was diagno sed with a UTI. She had 3+ bacteria in her urine. She was dehydrated and admitted for sepsis. Over the last few days, she has received IV hydration and antibiotics and is feeling much better. She se es Dr. Jones for multiple myeloma in mid March. She presented to our clinic with fatigue. She had a hemoglobin of 6.5. She received 2 units of packed RBCs. It was felt there was progression of her multiple myeloma, so she was started on pomalidomide; it is a 28-day cycle with 21 days on and 1 wee k off. She is currently in her week off. On this admission, she had a white count of 1.6. Her hemo globin was 10.5, platelet count was 83,000. She has slowly improved over the course of the week. Alberto verdin also has a nondisplaced distal tib/fib fracture of the right lower extremity. She has seen Dr. Ananya sharpe in the past and currently has a splint in place. PAST MEDICAL HISTORY: 1. IgG lambda myeloma diagnosed in 2008. 2. Diabetes mellitus 2. 3. Hypertension 4. High cholesterol. 5. Peptic ulcer disease. 6. Dyslipidemia. 7. Osteoarthritis. 8. Asthma. PAST SURGICAL HISTORY: 1. Umbilical hernia repair. 2. . 3. Tubal ligation. ALLERGIES: CODEINE, SULFA, MORPHINE, TRAMADOL, and VICODIN. HOME MEDICATIONS: 1. Allopurinol 100 mg b.i.d. 2. Aspirin 81 mg daily. 3. Coreg 25 mg 2 p.o. b.i.d. 4. Crestor 20 mg daily. 5. Diovan 160 mg daily. 6. Gabapentin 600 mg b.i.d. 7. Glimepiride 1 mg daily. 8. Potassium chloride 20 mEq daily. 9. Lasix 40 mg daily. 10. Pomalidomide 4 mg daily. 11. Protonix 40 mg daily. 12. Zolpidem 10 mg daily. FAMILY HISTORY: Noncontributory. SOCIAL HISTORY: She is single. She lives with her son. No alcohol, tobacco, or illicit drug use. REVIEW OF SYSTEMS: Twelve-point review of systems is negative except for noted in HPI. PHYSICAL EXAMINATION: VITAL SIGNS: Temperature is 98.4, pulse is 98, respiratory rate 20, BP is 131/79. She is 100% on ro om air. GENERAL: This is a disheveled female in no acute distress. HEENT: Normocephalic, atraumatic. Pupils equal and reactive to light. NECK: Supple. CARDIOVASCULAR: Regular rate and rhythm. LUNGS: Clear. ABDOMEN: Obese. Bowel sounds are positive. EXTREMITIES: No clubbing, cyanosis. She has a splint to the right lower extremity. SKIN: No rash. HEMATOLOGIC: No petechia or purpura. NEUROLOGIC: Nonfocal. PSYCHIATRIC: The patient is alert and oriented. PERTINENT LABORATORY AND X-RAYS: Current WBCs are 3.3, hemoglobin 7.3, hematocrit 21.6, platelet cou nt is 72,000, 26% neutrophils, 10% bands, 44% lymphocytes, 18% monocytes. Sodium is 143, potassium 3 .3, chloride 118, CO2 is 18, BUN is 5, creatinine 0.66, calcium 7.8. Urine had 3+ bacteria. Brain C T and abdominal pelvis CT showed no acute findings. ASSESSMENT: 1. IgG myeloma, on Pomalyst. 2. Sepsis. DISCUSSION: The patient's sepsis has improved. Her mental status is at baseline. She is on week 4 of Pomalyst, which is her off week. She was mildly neutropenic at the beginning of the week, but has slowly began to recover. We will continue to hold the Pomalyst until she has recovered from her sep sis and sees us in the clinic. Thank you for the consult.
[2018-05-06] MEDS: Acetaminophen 325 MG TAB PO PRN (20:19)
--- NOTE | 2018-05-06 21:11 | CON ---
DATE OF CONSULTATION: 05/06/2018 REASON FOR CONSULTATION: Bacteremia. HISTORY OF PRESENT ILLNESS: A 63-year-old who has a history of multiple myeloma as well as type 2 diabetes mellitus and hypertension, who became confused and lethargic after having had fever for about 2-3 days before admission. She denies any headaches. No visual symptoms, sore throat, odynophagia, or dysphagia. No vomiting. She felt what she describes as "upset stomach" during this period of time. I inquired about pain, but she denied that she actually had pain. She also denied vomiting. It is more like probably nausea, which she is trying to refer to. She had no diarrhea initially , but now after admission, she has developed diarrhea. She ate some barbecue with some potato salad on the day that things started to deteriorate. Initial findings included a BP 130/100, pulse 120, respiratory rate 22, temperature 102.2; and initial exam was not particularly remarkable. The abdomen however did have diffuse discomfort in the lower segments, but no peritoneal sign. Initial findings include a white cell count 1.6, hemoglobin 10.5, platelets 83, 000 with 21% neutrophils, 21 bands, total neutrophil count of about 600. Initial chemistry with a creatinine 1.2, sodium 134, potassium 3.6, AST 154, ALT 68, alkaline phosphatase 88, albumin 3.4. Urinalysis with 300 protein, 100 glucose, 0-3 wbc's. Microbiology now have Salmonella group C or D in 2/2 sets of blood cultures. C. diff antigen and toxin was positive as well. She is currently receiving Rocephin and oral vancomycin. Right now, she is feeling improvement in the overall symptom. She is oriented. The gastrointestinal symptoms appeared to have resolved. Never had dysuria. Other 10-point review of systems is as above. PAST MEDICAL HISTORY: Type 2 diabetes, multiple myeloma, bronchitis, peptic ulcer disease, osteoarthritis, obesity, hypertension. PAST SURGICAL HISTORY: , umbilical hernia repair, left knee surgery, tubal ligation, colonoscopy, EGD. SOCIAL HISTORY: Lives in [place]. Never a smoker. FAMILY HISTORY: Noncontributory. ALLERGIES: CODEINE, SULFA DRUGS, TRAMADOL, VICODIN. PHYSICAL EXAMINATION: VITAL SIGNS: Temperature max 102.9. She had defervesced since. Blood pressure 130/79, pulse 98, respirations 20, O2 sat 100. SKIN: Some areas of intertriginous maceration in the groin region, and also two areas of shallow ulceration with some serosanguineous drainage in the gluteal region bilaterally. Very symmetric distribution. No lymphadenopathy. HEENT: Ocular movements are conjugate. Pupils are equal and reactive. Oral cavity is unremarkable. NECK: Supple. No jugular vein distention. LUNGS: Symmetric clear breath sounds. HEART: S1, S2. No S3, S4. Regular rate. ABDOMEN: Soft. Not distended or tender. No ascites. No bladder distention. EXTREMITIES: No joint inflammatory activity. Pulses 1+ in dorsalis pedis. NEUROLOGIC: She is oriented x3, follows commands. LABORATORY DATA: Followup labs: White cell count up to 3.3, hemoglobin 7.3, platelets 72,000 with 10% bands, 26% neutrophils, 44% lymphocytes. Creatinine 0.66, potassium 3.3, sodium 143. IMAGING STUDIES: Include an abdomen and pelvis CT with no definitive acute process. ASSESSMENT: Multiple myeloma, type 2 diabetes mellitus, and Salmonella group C/ D bacteremia with associated positive C. diff antigen test. DISCUSSION: Salmonella bacteremia has been demonstrated in the past to be associated with increased risk of acquisition of C. difficile. Could be related to the utilization of antimicrobials, which would be a confounding factor, or due to alteration of bowel ashish by other mechanisms. She should be treated with Rocephin, may transition to quinolone. Total duration of Salmonella bacteremia treatment will be 7 days. Deep seated sites of involvement including areas of endarteritis, bone and joint infection, endocarditis are unlikely. For C. diff treatment, we will follow the usual protocol with 10 days of treatment and I would proceed with a tapering dose after that because of the risks of recrudescence. MTDD
[2018-05-07] MEDS: cefTRIAXone\\ROCEPHIN 2 GM in Sodium Chloride 0.9% 100 ML IVPB SCH (01:06)
[2018-05-07 06:18] LABS: Anion Gap 12 mmol/L (10-20); BUN (Urea Nitrogen) 5 mg/dL (9.8-20.1); Calc. Creatinine Clearance 148 mL/min (70-130); Calcium 8.6 mg/dL (7.8-10.44); Carbon Dioxide 17 mmol/L (23-31); Chloride 117 mmol/L (98-107); Estimated GFR-MDRD Greater than 90; Glucose 141 mg/dL (80-115); Potassium 3.6 mmol/L (3.5-5.1); Sodium 142 mmol/L (136-145)
[2018-05-07] MEDS: Vancomycin HCl 25 MG/ML Oral PO SCH ×2 (07:55→12:48)
[2018-05-07] MEDS: Gabapentin 300 MG CAP PO SCH (07:56)
[2018-05-07] MEDS: Calcium Carbonate + Vit D 1 TAB PO SCH (07:56)
[2018-05-07] MEDS: Famotidine 20 MG TAB PO SCH (07:56)
[2018-05-07] MEDS: Allopurinol 300 MG TAB PO SCH (07:56)
[2018-05-07] MEDS: Saccharomyces boulardii 250 MG CAP PO SCH (07:57)
[2018-05-07] MEDS: Potassium Chloride 20 MEQ TAB PO SCH (07:57)
[2018-05-07] MEDS: Ferrous Sulfate 325 MG TAB PO SCH (07:57)
[2018-05-07 07:59] LABS: Hemoglobin 7.7 g/dL (12.0-16.0); Mean Corpuscular HGB CONC 34.1 g/dL (32.0-36.0); Mean Corpuscular Hemoglobin 32.5 pg (27.0-31.0); Mean Corpuscular Volume 95.3 fL (78.0-98.0); Mean Platelet Volume 9.2 fL (7.4-10.4); Platelet Count 102 thou/uL (130-400); RBC Distribution Width 17.8 % (11.5-14.5); Red Blood Cell (RBC) Count 2.38 mill/uL (4.20-5.40); White Blood Cell (WBC) Count 3.7 thou/uL (4.8-10.8)
[2018-05-07 08:05] LABS: Band 8 % (5-11); Eosinophils 4 % (0-10); Lymphocytes 51 % (21-51); MDiff Complete? YES; Monocytes 12 % (0-10); Neutrophil 20 % (42-75); Ovalocytes SLIGHT = 2-5 cells (100X) (0-1/hpf); PLT Morphology Comment Appears Decreased; Polychromasia SLIGHT = 2-3 cells (100X) (0-2/hpf); Reactive Lymphocytes 3 % (0-10); Target Cells SLIGHT = 2-5 cells (100X) (0-1/hpf)
[2018-05-07 08:32] VITALS: BP 123/74; TEMP 98.4
[2018-05-07] MEDS ORDERED: Fish Oil 1,000 MG CAP PO SCH (09:00)
[2018-05-07] MEDS ORDERED: Rosuvastatin 20 MG TAB PO SCH (09:00)
[2018-05-07] MEDS ORDERED: Furosemide 40 MG TAB PO SCH (09:00)
[2018-05-07] MEDS ORDERED: Nystatin 500,000 UNITS/5 ML UDCUP PO SCH (09:00)
[2018-05-07] MEDS ORDERED: POMALIDOMIDE 4 MG PO SCH (09:00)
--- NOTE | 2018-05-07 11:41 | DIS ---
DATE OF ADMISSION: 05/03/2018 DATE OF DISCHARGE: 05/07/2018 PRIMARY CARE PHYSICIAN: Dr. Brian Craig. DISCHARGE DISPOSITION: Home with home health. PRIMARY DISCHARGE DIAGNOSES: Acute encephalopathy; abdominal pain, resolved; sepsis with acute organ dysfunction; bacteremia due to salmonella; Clostridium difficile diarrhea; hypoglycemia associated w ith diabetes type 2; hypokalemia; lactic acidosis; pancytopenia due to chemotherapy and sepsis; urina ry tract infection. SECONDARY DISCHARGE DIAGNOSES: Diabetes type 2, dyslipidemia, poor self-care deficit, hypertension, morbid obesity with BMI 44, multiple myeloma. PRIMARY PROCEDURE AND OPERATION: None. RADIOLOGICAL INVESTIGATION: Abdomen and pelvis CT scan unremarkable. Chest x-ray normal. CT brain negative for any acute intracranial process. SIGNIFICANT LABORATORY DATA: WBC 3.7, hemoglobin 7.7, platelet 102. Sodium 142, potassium 3.6, BUN 5, creatinine 0.65, calcium 8.6. Urinalysis suggestive of UTI. Serum ketones normal. Blood culture positive for salmonella group C. Urine culture negative. C. diff positive. Repeat blood culture n egative. DISCHARGE MEDICATIONS: Ciprofloxacin 500 mg p.o. b.i.d. for another 5 days; Flagyl 125 mg q.i.d. for 2 week, then t.i.d. for 1 week, then b.i.d. for 1 week and then daily for 1 week; Florastor 250 mg p .o. daily for 1 month. Continue following medications: Allopurinol 300 mg p.o. daily, Symbicort 1 puff inhalation b.i.d., C oreg 25 mg p.o. b.i.d., fish oil 1000 mg p.o. daily, Lasix 40 mg p.o. daily, gabapentin 600 mg t.i.d. , glimepiride 1 mg p.o. b.i.d., vitamin B complex 1 capsule daily, Protonix 40 mg p.o. daily, potassi um chloride 20 mEq p.o. daily, Crestor 20 mg p.o. daily, valsartan 160 mg p.o. daily. CONTRAINDICATIONS: None. CODE STATUS: FULL CODE. INPATIENT CONSULTANTS: Dr. Pereira was consulted while in hospital. Elyssa Lim APRN with oncologis t was consulted while in hospital. TEST RESULTS PENDING ON DISCHARGE: None. ALLERGIES: CODEINE, MORPHINE, SULFA, TRAMADOL. DISCHARGE PLAN: Post hospital, the patient will follow up with Dr. Brian Craig; Elyssa Lim APRN; and Dr. Pereira as instructed. HOSPITAL COURSE: The patient is a 63-year-old female who was admitted by me on 05/03/2018. Please s ee my HPI for further details. Patient presented to the hospital with altered mental status, general ized weakness. She was having diarrhea. She was meeting sepsis criteria. Initially, we suspected U TI, but her diarrhea came back positive for C. diff and subsequently her blood culture also came back positive for gram negative anthony and subsequently they identified as a salmonella group C. Initially, she was given Rocephin, Levaquin and vancomycin. Subsequently, based on culture and sensitivity res ult from blood culture, we discontinued levofloxacin and continue with Rocephin. We also consulted Renuka Pereira about salmonella bacteremia who recommended to change to fluoroquinolone for another total o f 7 days therapy. For C. diff, we prescribed tapering doses of oral vancomycin. On discharge, we ch anged to ciprofloxacin for 5 more days for salmonella bacteremia. Her repeat blood culture is negati ve. Her sepsis resolved. Her acute kidney failure, resolved. Her encephalopathy resolved. She fernando s have physical deconditioning and that is why we advised her to go to halfway home, but the patient did not agree to go to halfway home and she wanted to go home. Based on her request, we decided to let her go home. The patient had Oncology followup appointment and that is why Elyssa Lim APRN was consulted and she recommended to continue to hold on multiple myeloma, chemotherapy until they see her in the clinic. The patient expressed understanding about this. The patient does have pancytopenia and that was related with a chemo pill as well as sepsis, which is improving. Patient was hydrated with IV fluid and this patient was admitted to medical floor. She was hemodynam ically stable. While in hospital, she had hypoglycemia that was treated with dextrose solution and s ubsequently we discontinued IV fluid and we resumed all her previous medication. PHYSICAL EXAMINATION: The patient is seen and examined at bedside today. VITAL SIGNS: Currently, temperature 98.4, pulse 92, respiratory rate 18, saturation 95% on room air, blood pressure 123/74, weight 230 pounds. GENERAL: The patient is alert, awake, no obvious acute distress. HEAD: Normocephalic, atraumatic. EYES: Pupils round, reactive to light. Extraocular muscle intact. ENT: Oropharynx within normal limits. Moist mucous membrane, no oral lesion, no pharyngeal erythema , no exudate. NECK: Supple, no JVD, no thyromegaly, no carotid bruit. LUNGS: Clear to auscultation without any rhonchi or rales. CARDIAC: S1, S2 regular without any murmur. ABDOMEN: Soft and benign without any tenderness. EXTREMITIES: No edema. NEUROLOGIC: Nonfocal examination. Overall, the patient is medically stable for discharge, but the patient is at high risk for recurrent admission given her self-care deficit. Unfortunately, she does not want to go to any kind of [facility] which we recommend. Total time spent on discharge day 31 minutes.
== END 2018-05-07 14:30 | disposition home or self-care (01) | DRG 871 ==
LOC: ERS 11:13 → T4-B 13:31
PROVIDERS: ADMIT Internal Medicine; ATTEND Internal Medicine
DX: A02.1 Salmonella sepsis (principal); G93.40 Encephalopathy, unspecified; N39.0 Urinary tract infection, site not specified; C90.00 Multiple myeloma not having achieved remission; Z68.41 Body mass index [BMI] 40.0-44.9, adult; E87.2 Acidosis; D61.818 Other pancytopenia; A04.72 Enterocolitis due to Clostridium difficile, not specified as recurrent; I10 Essential (primary) hypertension; Z79.4 Long term (current) use of insulin; E66.01 Morbid (severe) obesity due to excess calories; Z88.6 Allergy status to analgesic agent; Z88.5 Allergy status to narcotic agent; Z88.2 Allergy status to sulfonamides; Z88.8 Allergy status to other drugs, medicaments and biological substances; R65.20 Severe sepsis without septic shock; E87.6 Hypokalemia; E11.40 Type 2 diabetes mellitus with diabetic neuropathy, unspecified; E11.65 Type 2 diabetes mellitus with hyperglycemia; Z79.84 Long term (current) use of oral hypoglycemic drugs; K21.9 Gastro-esophageal reflux disease without esophagitis; M10.9 Gout, unspecified; S82.251D Displaced comminuted fracture of shaft of right tibia, subsequent encounter for closed fracture with routine healing; S82.451D Displaced comminuted fracture of shaft of right fibula, subsequent encounter for closed fracture with routine healing; E11.649 Type 2 diabetes mellitus with hypoglycemia without coma
CPT/HCPCS: 36415; 36416; 51701; 70450; 71045; 74177; 80048; 80053; 81003; 81015; 82010; 83605; 83735; 85025; 87040; 87077; 87086; 87149; 87186; 87324; 87449; 87493; 93005; 96361; 96365; A4353; G8978-GP-CM; G8979-GP-CK; G8987-GO-CL; G8988-GO-CI; J0696; J1815; J1956; J2405; J7050

== ENCOUNTER 2018-05-08 13:44 | Inpatient (IN) | payer MEDICARE, MEDICAID ==
--- NOTE | 2018-05-08 14:28 | RAD ---
CHEST ONE VIEW: History: Altered mental status. Comparison: 05-03-18 FINDINGS: Cardiac silhouette and pulmonary vasculature are unremarkable. Mediastinum is midline. No confluent a irspace consolidation or evidence of pneumothorax. IMPRESSION: No active cardiopulmonary abnormalities are demonstrated. POS: [facility]
[2018-05-08 15:04] LABS: Hemoglobin 9.2 g/dL (12.0-16.0); Mean Corpuscular HGB CONC 33.9 g/dL (32.0-36.0); Mean Corpuscular Hemoglobin 31.9 pg (27.0-31.0); Mean Corpuscular Volume 93.9 fL (78.0-98.0); Mean Platelet Volume 9.2 fL (7.4-10.4); Platelet Count 140 thou/uL (130-400); RBC Distribution Width 17.3 % (11.5-14.5); Red Blood Cell (RBC) Count 2.87 mill/uL (4.20-5.40); White Blood Cell (WBC) Count 4.5 thou/uL (4.8-10.8)
[2018-05-08 15:21] LABS: Anisocytosis SLIGHT = 6-15 cells (100X) (0-5/hpf); Band 5 % (5-11); Lymphocytes 35 % (21-51); MDiff Complete? YES; Monocytes 12 % (0-10); Neutrophil 45 % (42-75); Nucleated RBC 3 % (0); Ovalocytes SLIGHT = 2-5 cells (100X) (0-1/hpf); PLT Morphology Comment Appears Adequate; Polychromasia SLIGHT = 2-3 cells (100X) (0-2/hpf); Reactive Lymphocytes 1 % (0-10); Tear Drops SLIGHT = 2-5 cells (100X) (0-1/hpf)
[2018-05-08 15:25] LABS: ALT (SGPT) 135 U/L (8-55); AST (SGOT) 192 U/L (5-34); Albumin 3.8 g/dL (3.4-4.8); Alkaline Phosphatase 143 U/L (40-150); Anion Gap 12 mmol/L (10-20); BUN (Urea Nitrogen) 8 mg/dL (9.8-20.1); Bilirubin, Total 1.1 mg/dL (0.2-1.2); CK (CPK) 3348 U/L (29-168); Calc. Creatinine Clearance 0 mL/min (70-130); Calcium 9.7 mg/dL (7.8-10.44); Carbon Dioxide 19 mmol/L (23-31); Chloride 110 mmol/L (98-107); Estimated GFR-MDRD Greater than 90; Globulin 3.6 g/dL (2.4-3.5); Glucose 86 mg/dL (80-115); Potassium 3.4 mmol/L (3.5-5.1); Protein, Total 7.4 g/dL (6.0-8.3); Sodium 138 mmol/L (136-145)
[2018-05-08 15:28] LABS: CKMB 1.3 ng/mL (0-6.6); Troponin I Less than 0.010 ng/mL (< 0.028)
[2018-05-08 15:36] LABS: Bilirubin Negative (Negative); Blood, Urine Moderate (Negative); Clarity CLOUDY (Clear); Glucose, Urine (Dipstick) Negative (Negative); Leukocyte Trace (Negative); Nitrite Negative (Negative); Protein, Urine (Dipstick) 100 mg/dL (Neg-Trace); Specific Gravity, Urine 1.018 (1.002-1.036); Urobilinogen 0.2 mg/dL (0.2-1.0); pH, Urine 7.5 (5.0-9.0)
[2018-05-08 15:38] LABS: Bacteria/HPF Rare-Few HPF (None Seen); Pathc Cast-AUWi Flag 2.32 (0-2.49)
[2018-05-08 15:43] LABS: Yeast-AUWi Flag 92.6 (0-25.0)
[2018-05-08 15:58] LABS: Yeast-All Forms 2+ HPF (None Seen)
[2018-05-08 16:00] LABS: Crystals/HPF None Seen HPF (Negative); Hyaline Casts/LPF 0-3 HYALINE CAST LPF (0-3 Hyaline)
[2018-05-08] MEDS ORDERED: Acetaminophen 500 MG TAB ONE (17:58)
[2018-05-08 19:10] LABS: Lactic Acid 1.6 mmol/L (0.5-2.2)
[2018-05-08] MEDS ORDERED: Ondansetron ODT 4 MG TAB SL PRN (20:17)
[2018-05-08] MEDS ORDERED: Acetaminophen 325 MG TAB PO PRN (20:17)
[2018-05-08] MEDS ORDERED: Ondansetron HCl/PF 4 MG/2 ML Vial IVP PRN (20:17)
[2018-05-08] MEDS: Sodium Chloride 0.9% 1,000 ML IV SCH (21:06)
[2018-05-09] MEDS: Methyl Salicylate/Menthol 85 GM TUBE TOP PRN ×2 (02:59→10:35)
[2018-05-09] MEDS ORDERED: Non-Formulary Item 1 EACH (Budesonide-Formoterol [Symbicort 80-4.5] 1 PUFF) INH PRN (05:28)
[2018-05-09] MEDS ORDERED: Dextrose 50% Abboject 50 ML SYRINGE SLOW IVP PRN (05:30)
[2018-05-09] MEDS ORDERED: Milk Of Magnesia 30 ML UDCUP PO PRN (05:30)
[2018-05-09] MEDS ORDERED: Senokot 8.6 MG TAB PO PRN (05:30)
[2018-05-09] MEDS ORDERED: Dextrose 5% in Water 1,000 ML IV PRN (05:30)
[2018-05-09] MEDS ORDERED: Mag-Al 1200 mg/1200 mg/30 ML UDCUP PO PRN (05:30)
[2018-05-09] MEDS ORDERED: Calcium Carbonate 500 MG ChewTAB PO PRN (05:30)
[2018-05-09] MEDS ORDERED: Insulin Regular 300 UNITS/3 ML VIAL SC PRN ×2 (05:30)
[2018-05-09] MEDS ORDERED: Mometasone/Formoterol 120 PUFF INHALER INH PRN (05:56)
[2018-05-09] MEDS: Sodium Chloride 0.9% 1,000 ML IV SCH ×2 (06:03→06:04)
[2018-05-09] MEDS ORDERED: Ondansetron HCl/PF 4 MG/2 ML Vial IVP PRN (06:21)
[2018-05-09] MEDS ORDERED: Ondansetron ODT 4 MG TAB PO PRN (06:21)
--- NOTE | 2018-05-09 06:53 | HP ---
DATE OF ADMISSION: 05/08/2018 The patient was seen and examined on May 08, 2018. PRIMARY CARE PHYSICIAN: Dr. Brian Craig. CHIEF COMPLAINT: Altered mentation. HISTORY OF PRESENT ILLNESS: The patient is a 63-year-old -Chinese female who was discharged from this facility yesterday, was brought in by EMS with altered mentation. She was diagnosed with S almonella bacteremia along with Clostridium difficile diarrhea. Please note that patient had decline d rehab or senior living placement. The patient was found on the floor crawling around with altered mentation. She was sitting on the fl oor with insects and urine per ER report. The patient was found today by addiction social worker in the abo e condition. For this reason, she was brought into the emergency room. In the emergency room, her w orkup was consistent with rhabdomyolysis with CK of 3348. She received 2 liters of IV fluid with Tyl enol in the emergency room. The patient denies any double vision, blurring of vision, facial asymmet ry or weakness, numbness in any of her extremities. No cough, shortness of breath, wheezing, or dysu mary alice reported. Mentation somewhat improved with IV fluids. PAST MEDICAL HISTORY: 1. History of multiple myeloma. 2. Hospitalization recently for Salmonella bacteremia with C. difficile diarrhea. 3. Diabetes mellitus type 2. 4. Hypertension. 5. Morbid obesity with a BMI of 43.6. 6. Multiple myelomas. PAST SURGICAL HISTORY: 1. . 2. Left knee surgery. 3. Tubal ligation. 4. Colonoscopy. 5. EGD. 6. Umbilical hernia repair. ALLERGIES: The patient is allergic to CODEINE, MORPHINE, SULFA, TRAMADOL, and Vicodin. CURRENT HOME MEDICATIONS: The patient does not remember any of her home medications. SOCIAL HISTORY: The patient currently lives at home. No smoking, alcohol or drug use. Her son, Eduardo mi is the decision maker. FAMILY HISTORY: Negative for heart disease per review of record. REVIEW OF SYSTEMS: Cannot be reliably obtained from the patient due to current cognitive status. PHYSICAL EXAMINATION: VITAL SIGNS: In the emergency room showed temperature 100.1, respirations 20, pulse rate of 112 with blood pressure of 107/63 with O2 saturation 97% on room air. GENERAL: A 63-year-old female in no apparent distress. Mentation gradually improving. HEENT: Head atraumatic, normocephalic. Sclerae are anicteric. Dry mucous membrane. No oral lesion . NECK: Supple. No JVD, no carotid bruit. LUNGS: Showed scattered rales at bases. No wheezing or rhonchi. HEART: S1, S2 present. Regular rate and rhythm. No rubs or gallops appreciated. ABDOMEN: Soft, nontender, bowel sounds present. EXTREMITIES: No calf tenderness. Right lower extremity with soft cast. A 2+ edema in left lower ex tremity. No calf tenderness. SKIN: Warm and dry. LYMPH NODES: No palpable lymph nodes in the neck. NEUROLOGIC: Cranial nerves II-XII were normal on examination. Power was 5/5 in all extremities. Fi [id number]-[id number] test was normal. SKIN: Warm and dry. LYMPH NODES: No palpable lymph nodes in the neck. PERIPHERAL VASCULAR: Radial pulses palpable bilaterally. MUSCULOSKELETAL: No joint swelling or tenderness. LABORATORY FINDINGS: Chest x-ray by my review was negative for infiltrate. CBC showed WBC 4.5 with hemoglobin 9.2, hematocrit 27, platelet 140. Chemistries showed sodium 138, potassium 3.4, chloride 110, bicarb 19, BUN 8, creatinine 0.75, AST 192, ALT 135. CK 3348. Troponin negative. Lactic acid was normal. IMPRESSION: 1. Toxic metabolic encephalopathy, multifactorial. 2. Recent hospitalization for Salmonella bacteremia with Clostridium difficile diarrhea. Please not e that patient was evaluated by Dr. Pereira. 3. Diabetes mellitus type 2. 4. Multiple myeloma. 5. Hypertension. 6. Chronic anemia. 7. Morbid obesity with a body mass index of 43.6. 8. Hypokalemia. 9. Abnormal liver function tests, probably secondary to sepsis. 10. Rhabdomyolysis. PLAN: The patient will be monitored on the medical floor as observation. A low-grade fever could be probably secondary to recent infection. Repeat blood and urine cultures have been sent. We will co ntinue antibiotics as well as oral vancomycin for C. diff diarrhea. Continue gentle hydration. Cons ult manager of case management for rehab versus skilled placement. Plan of care was discussed with the patient in detail. She stated understanding. We will replace el ectrolytes.
[2018-05-09] MEDS: cefTRIAXone\\ROCEPHIN 1 GM in Sodium Chloride 0.9% 100 ML IVPB SCH (07:04)
[2018-05-09] MEDS: Carvedilol 25 MG TAB PO SCH ×3 (09:46→19:50)
[2018-05-09] MEDS: Saccharomyces boulardii 250 MG CAP PO SCH ×2 (09:46→10:32)
[2018-05-09] MEDS: Potassium Chloride 20 MEQ TAB PO SCH ×2 (09:46→10:31)
[2018-05-09] MEDS: Vancomycin HCl 25 MG/ML Oral PO SCH ×4 (10:32→19:51)
[2018-05-09] MEDS: Acetaminophen 325 MG TAB PO PRN (12:56)
[2018-05-09 14:02] VITALS: BMI 43.6
--- NOTE | 2018-05-09 15:58 | PDOC.PN ---
- Subjective Encounter Start Date: 05/09/18 Encounter Start Time: 15:57 Patient seen and examined by me. NAD. Has no complaints. - Objective Resuscitation Status: Resuscitation Status FULL:Full Resuscitation MAR Reviewed: Yes Vital Signs & Weight: Vital Signs (12 hours) Temp Pulse Resp BP Pulse Ox 05/09/18 12:45 98.8 F 88 16 120/50 L 99 05/09/18 12:35 98.8 F 88 16 120/50 L 99 05/09/18 08:00 99.0 F 107 H 16 100 05/09/18 07:54 99.0 F 107 H 16 172/95 H 100 05/09/18 04:12 98.7 F 96 16 145/81 H 99 Weight Admit Weight 230 lb 14.4 oz Weight 230 lb 14.4 oz I&O: 05/08/18 05/09/18 05/10/18 06:59 06:59 06:59 Intake Total 1575 Balance 1575 Result Diagrams: 05/08/18 14:48 05/08/18 14:48 Additional Labs: Accuchecks 05/09/18 05/09/18 05/08/18 12:34 04:15 20:25 POC Glucose 115 H 102 81 Phys Exam - Physical Examination Constitutional: NAD HEENT: PERRLA, moist MMs Neck: no JVD, supple Respiratory: no wheezing, no rales, no rhonchi, clear to auscultation bilateral Cardiovascular: RRR, no significant murmur, no rub Gastrointestinal: soft, non-tender, no distention Musculoskeletal: no edema, pulses present Neurological: non-focal, normal sensation Psychiatric: normal affect, A&O x 3 Skin: no rash, cap refill <2 seconds Dx/Plan (1) Rhabdomyolysis Code(s): M62.82 - RHABDOMYOLYSIS Status: Acute Comment: currently cpk is > 3000. Will continue gentle hydration until CPK is <1000. Patient will be discharged to rehab facility. (2) Diabetes type 2, controlled Code(s): E11.9 - TYPE 2 DIABETES MELLITUS WITHOUT COMPLICATIONS Status: Chronic (3) Dyslipidemia Code(s): E78.5 - HYPERLIPIDEMIA, UNSPECIFIED Status: Chronic (4) Hypertension Code(s): I10 - ESSENTIAL (PRIMARY) HYPERTENSION Status: Chronic (5) Morbid obesity with BMI of 40.0-44.9, adult Code(s): E66.01 - MORBID (SEVERE) OBESITY DUE TO EXCESS CALORIES; Z68.41 - BODY MASS INDEX (BMI) 40.0-44.9, ADULT Status: Chronic (6) Multiple myeloma Code(s): C90.00 - MULTIPLE MYELOMA NOT HAVING ACHIEVED REMISSION Status: Chronic (7) Encephalopathy acute Code(s): G93.40 - ENCEPHALOPATHY, UNSPECIFIED Status: Resolved - Plan cont current plan of care, DVT proph w/SCDs * . Review of Systems - Review of Systems Constitutional: negative: fever, chills, sweats, weakness, malaise, other Eyes: negative: Pain, Vision Change, Conjunctivae Inflammation, Eyelid Inflammation, Redness, Other ENT: negative: Ear Pain, Ear Discharge, Nose Pain, Nose Discharge, Nose Congestion, Mouth Pain, Mouth Swelling, Throat Pain, Throat Swelling, Other Respiratory: negative: Cough, Dry, Shortness of Breath, Hemoptysis, SOB with Excertion, Pleuritic Pain, Sputum, Wheezing Cardiovascular: negative: chest pain, palpitations, orthopnea, paroxysmal nocturnal dyspnea, edema, light headedness, other Gastrointestinal: negative: Nausea, Vomiting, Abdominal Pain, Diarrhea, Constipation, Melena, Hematochezia, Other Genitourinary: negative: Dysuria, Frequency, Incontinence, Hematuria, Retention , Other Musculoskeletal: negative: Neck Pain, Shoulder Pain, Arm Pain, Back Pain, Hand Pain, Leg Pain, Foot Pain, Other Skin: negative: Rash, Lesions, Toi, Bruising, Other Neurological: negative: Weakness, Numbness, Incoordination, Change in Speech, Confusion, Seizures, Other - Medications/Allergies Allergies/Adverse Reactions: Allergies Allergy/AdvReac Type Severity Reaction Status Date / Time codeine Allergy Verified 05/04/18 16:21 morphine Allergy Verified 05/04/18 16:21 Sulfa (Sulfonamide Allergy Verified 05/04/18 16:21 Antibiotics) tramadol Allergy Verified 05/04/18 16:21 Medications: Current Medications Acetaminophen (Tylenol) 650 mg PO Q4H PRN PRN Reason: Headache/Fever or Pain Last Admin: 05/09/18 12:56 Dose: 650 mg Al Hydroxide/Mg Hydroxide (Maalox) 30 ml PO Q6H PRN PRN Reason: Heartburn or Indigestion Calcium Carbonate (Tums) 1,000 mg PO Q4H PRN PRN Reason: Heartburn or Indigestion Carvedilol (Coreg) 25 mg PO BID [facility] Last Admin: 05/09/18 10:30 Dose: 25 mg Dextrose/Water (Dextrose 50%) 25 gm SLOW IVP PRN PRN PRN Reason: Hypoglycemia Glucagon (Glucagon) 1 mg IM PRN PRN PRN Reason: Hypoglycemia Sodium Chloride (Normal Saline 0.9%) 1,000 mls @ 50 mls/hr IV .Q20H [facility] Last Admin: 05/09/18 06:04 Dose: 1,000 mls Ceftriaxone Sodium 1 gm/ (Sodium Chloride) 100 mls @ 200 mls/hr IVPB Q24HR [facility] Last Admin: 05/09/18 07:04 Dose: 100 mls Dextrose/Water (D5w) 1,000 mls @ 0 mls/hr IV .Q0M PRN PRN Reason: Hypoglycemia Insulin Human Regular (Humulin R) 0 units SC .MILD SLIDING SCALE PRN PRN Reason: Mild Correctional Scale Insulin Human Regular (Humulin R) 0 units SC .BEDTIME SLIDING SC PRN PRN Reason: Bedtime Correctional Scale Magnesium Hydroxide (Milk Of Magnesium) 30 ml PO DAILYPRN PRN PRN Reason: Constipation Menthol/Methyl Salicylate (Muscle Rub Cream (Bengay)) 0 gm TOP QIDPRN PRN PRN Reason: Joint Stiffness Last Admin: 05/09/18 10:35 Dose: 85 gm Mometasone Furoate/Formoterol Fumar (Dulera 100 Mcg/5 Mcg Inhaler) 1 puff INH BIDPRN PRN PRN Reason: SOB &/or Wheezing Ondansetron HCl (Zofran Odt) 4 mg PO Q6H PRN PRN Reason: Nausea/Vomiting Last Admin: 05/09/18 06:30 Dose: 4 mg Ondansetron HCl (Zofran) 4 mg IVP Q6H PRN PRN Reason: Nausea/Vomiting Last Admin: 05/09/18 09:46 Dose: 4 mg Pantoprazole Sodium (Protonix) 40 mg PO DAILY [facility] Last Admin: 05/09/18 10:31 Dose: 40 mg Potassium Chloride (K-Dur) 20 meq PO DAILY [facility] Last Admin: 05/09/18 10:31 Dose: 20 meq Saccharomyces Boulardii (Florastor) 250 mg PO DAILY [facility] Last Admin: 05/09/18 10:32 Dose: 250 mg Senna (Senokot) 2 tab PO HSPRN PRN PRN Reason: Constipation Vancomycin HCl (First Vancomycin) 125 mg PO QID [facility] Stop: 05/15/18 21:01 Last Admin: 05/09/18 12:57 Dose: 125 mg Vancomycin HCl (First Vancomycin) 125 mg PO TID [facility] Stop: 05/22/18 21:01 Vancomycin HCl (First Vancomycin) 125 mg PO BID [facility] Stop: 05/29/18 21:01 Vancomycin HCl (First Vancomycin) 125 mg PO DAILY [facility] Stop: 06/05/18 09:01
[2018-05-10] MEDS: Acetaminophen 325 MG TAB PO PRN (01:09)
[2018-05-10] MEDS: Sodium Chloride 0.9% 1,000 ML IV SCH (01:17)
[2018-05-10 06:24] LABS: ALT (SGPT) 81 U/L (8-55); AST (SGOT) 86 U/L (5-34); Albumin 3.1 g/dL (3.4-4.8); Alkaline Phosphatase 111 U/L (40-150); Anion Gap 10 mmol/L (10-20); BUN (Urea Nitrogen) 4 mg/dL (9.8-20.1); Bilirubin, Total 0.6 mg/dL (0.2-1.2); CK (CPK) 780 U/L (29-168); Calc. Creatinine Clearance 142 mL/min (70-130); Calcium 8.4 mg/dL (7.8-10.44); Carbon Dioxide 21 mmol/L (23-31); Chloride 114 mmol/L (98-107); Estimated GFR-MDRD Greater than 90; Globulin 2.9 g/dL (2.4-3.5); Glucose 104 mg/dL (80-115); Sodium 142 mmol/L (136-145)
[2018-05-10 06:33] LABS: Band 7 % (5-11); Hemoglobin 6.8 g/dL (12.0-16.0); Hypochromia SLIGHT = 6-15 cells (100X) (0-5/hpf); Lymphocytes 11 % (21-51); MDiff Complete? YES; Mean Corpuscular HGB CONC 33.7 g/dL (32.0-36.0); Mean Corpuscular Hemoglobin 31.7 pg (27.0-31.0); Mean Corpuscular Volume 94.3 fL (78.0-98.0); Monocytes 10 % (0-10); Neutrophil 72 % (42-75); Nucleated RBC 1 % (0); PLT Morphology Comment Appears Adequate; Platelet Count 142 thou/uL (130-400); Red Blood Cell (RBC) Count 2.14 mill/uL (4.20-5.40); White Blood Cell (WBC) Count 4.6 thou/uL (4.8-10.8)
[2018-05-10] MEDS: cefTRIAXone\\ROCEPHIN 1 GM in Sodium Chloride 0.9% 100 ML IVPB SCH (06:33)
[2018-05-10] MEDS: Potassium Chloride 20 MEQ TAB PO SCH (08:57)
[2018-05-10] MEDS: Saccharomyces boulardii 250 MG CAP PO SCH (08:57)
[2018-05-10] MEDS: Carvedilol 25 MG TAB PO SCH ×2 (08:57→20:27)
[2018-05-10] MEDS: Vancomycin HCl 25 MG/ML Oral PO SCH ×4 (09:47→20:31)
[2018-05-10] MEDS: Gabapentin 100 MG CAP PO SCH ×2 (15:10→20:26)
--- NOTE | 2018-05-10 19:35 | PDOC.PN ---
- Subjective Encounter Start Date: 05/10/18 Encounter Start Time: 13:00 Seen and examined. Not in acute distress. States that she needed some of her home medications. - Objective Resuscitation Status: Resuscitation Status FULL:Full Resuscitation MAR Reviewed: Yes Vital Signs & Weight: Vital Signs (12 hours) Temp Pulse Pulse Resp BP BP Pulse Ox 05/10/18 16:20 98.4 F 80 16 124/75 05/10/18 16:01 99.3 F 84 16 143/88 H 05/10/18 16:00 99.3 F 84 16 143/88 H 95 05/10/18 12:15 98.5 F 80 16 135/80 05/10/18 11:24 98.6 F 83 16 142/81 H 98 05/10/18 08:00 98.6 F 80 16 98 Weight Admit Weight 230 lb 14.4 oz Weight 226 lb 2 oz I&O: 05/09/18 05/10/18 05/11/18 06:59 06:59 06:59 Intake Total 1575 2420 1800 Output Total 750 Balance 1575 2420 1050 Result Diagrams: 05/10/18 04:49 05/10/18 04:49 Additional Labs: Accuchecks 05/10/18 05/10/18 05/10/18 15:54 11:24 05:19 POC Glucose 121 H 103 116 H 05/09/18 19:40 POC Glucose 94 Dx/Plan (1) Anemia in chronic illness Code(s): D63.8 - ANEMIA IN OTHER CHRONIC DISEASES CLASSIFIED ELSEWHERE Status : Acute Comment: H/H is 6.8. will transfuse 2 units and check CBC in the AM (2) Rhabdomyolysis Code(s): M62.82 - RHABDOMYOLYSIS Status: Resolved Comment: rhabdo resolved. will d/c fluids. (3) Diabetes type 2, controlled Code(s): E11.9 - TYPE 2 DIABETES MELLITUS WITHOUT COMPLICATIONS Status: Chronic (4) Dyslipidemia Code(s): E78.5 - HYPERLIPIDEMIA, UNSPECIFIED Status: Chronic (5) Hypertension Code(s): I10 - ESSENTIAL (PRIMARY) HYPERTENSION Status: Chronic (6) Morbid obesity with BMI of 40.0-44.9, adult Code(s): E66.01 - MORBID (SEVERE) OBESITY DUE TO EXCESS CALORIES; Z68.41 - BODY MASS INDEX (BMI) 40.0-44.9, ADULT Status: Chronic (7) Multiple myeloma Code(s): C90.00 - MULTIPLE MYELOMA NOT HAVING ACHIEVED REMISSION Status: Chronic - Plan * . Review of Systems - Review of Systems Constitutional: negative: fever, chills, sweats, weakness, malaise, other Eyes: negative: Pain, Vision Change, Conjunctivae Inflammation, Eyelid Inflammation, Redness, Other ENT: negative: Ear Pain, Ear Discharge, Nose Pain, Nose Discharge, Nose Congestion, Mouth Pain, Mouth Swelling, Throat Pain, Throat Swelling, Other Respiratory: negative: Cough, Dry, Shortness of Breath, Hemoptysis, SOB with Excertion, Pleuritic Pain, Sputum, Wheezing Cardiovascular: negative: chest pain, palpitations, orthopnea, paroxysmal nocturnal dyspnea, edema, light headedness, other Gastrointestinal: negative: Nausea, Vomiting, Abdominal Pain, Diarrhea, Constipation, Melena, Hematochezia, Other Genitourinary: negative: Dysuria, Frequency, Incontinence, Hematuria, Retention , Other Musculoskeletal: negative: Neck Pain, Shoulder Pain, Arm Pain, Back Pain, Hand Pain, Leg Pain, Foot Pain, Other Skin: negative: Rash, Lesions, Toi, Bruising, Other Neurological: negative: Weakness, Numbness, Incoordination, Change in Speech, Confusion, Seizures, Other - Medications/Allergies Allergies/Adverse Reactions: Allergies Allergy/AdvReac Type Severity Reaction Status Date / Time codeine Allergy Verified 05/04/18 16:21 morphine Allergy Verified 05/04/18 16:21 Sulfa (Sulfonamide Allergy Verified 05/04/18 16:21 Antibiotics) tramadol Allergy Verified 05/04/18 16:21 Medications: Current Medications Acetaminophen (Tylenol) 650 mg PO Q4H PRN PRN Reason: Headache/Fever or Pain Last Admin: 05/10/18 01:09 Dose: 650 mg Al Hydroxide/Mg Hydroxide (Maalox) 30 ml PO Q6H PRN PRN Reason: Heartburn or Indigestion Allopurinol (Zyloprim) 300 mg PO DAILY [facility] Calcium Carbonate (Tums) 1,000 mg PO Q4H PRN PRN Reason: Heartburn or Indigestion Carvedilol (Coreg) 25 mg PO BID [facility] Last Admin: 05/10/18 08:57 Dose: 25 mg Dextrose/Water (Dextrose 50%) 25 gm SLOW IVP PRN PRN PRN Reason: Hypoglycemia Fish Oil (Fish Oil) 1,000 mg PO DAILY [facility] Furosemide (Lasix) 40 mg PO DAILY [facility] Gabapentin (Neurontin) 100 mg PO TID [facility] Last Admin: 05/10/18 15:10 Dose: 100 mg Glucagon (Glucagon) 1 mg IM PRN PRN PRN Reason: Hypoglycemia Ceftriaxone Sodium 1 gm/ (Sodium Chloride) 100 mls @ 200 mls/hr IVPB Q24HR [facility] Last Admin: 05/10/18 06:33 Dose: 100 mls Dextrose/Water (D5w) 1,000 mls @ 0 mls/hr IV .Q0M PRN PRN Reason: Hypoglycemia Insulin Human Regular (Humulin R) 0 units SC .MILD SLIDING SCALE PRN PRN Reason: Mild Correctional Scale Insulin Human Regular (Humulin R) 0 units SC .BEDTIME SLIDING SC PRN PRN Reason: Bedtime Correctional Scale Magnesium Hydroxide (Milk Of Magnesium) 30 ml PO DAILYPRN PRN PRN Reason: Constipation Menthol/Methyl Salicylate (Muscle Rub Cream (Bengay)) 0 gm TOP QIDPRN PRN PRN Reason: Joint Stiffness Last Admin: 05/09/18 10:35 Dose: 85 gm Mometasone Furoate/Formoterol Fumar (Dulera 100 Mcg/5 Mcg Inhaler) 1 puff INH BIDPRN PRN PRN Reason: SOB &/or Wheezing Nystatin (Mycostatin) 500,000 units SSP BID [facility] Ondansetron HCl (Zofran Odt) 4 mg PO Q6H PRN PRN Reason: Nausea/Vomiting Last Admin: 05/09/18 06:30 Dose: 4 mg Ondansetron HCl (Zofran) 4 mg IVP Q6H PRN PRN Reason: Nausea/Vomiting Pantoprazole Sodium (Protonix) 40 mg PO DAILY [facility] Last Admin: 05/10/18 08:57 Dose: 40 mg Potassium Chloride (K-Dur) 20 meq PO DAILY [facility] Last Admin: 05/10/18 08:57 Dose: 20 meq Rosuvastatin Calcium (Crestor) 20 mg PO DAILY [facility] Saccharomyces Boulardii (Florastor) 250 mg PO DAILY [facility] Last Admin: 05/10/18 08:57 Dose: 250 mg Senna (Senokot) 2 tab PO HSPRN PRN PRN Reason: Constipation Sodium Chloride (Flush - Normal Saline) 10 ml IVF Q12HR [facility] Sodium Chloride (Flush - Normal Saline) 10 ml IVF PRN PRN PRN Reason: Saline Flush Vancomycin HCl (First Vancomycin) 125 mg PO QID [facility] Stop: 05/15/18 21:01 Last Admin: 05/10/18 16:48 Dose: 125 mg Vancomycin HCl (First Vancomycin) 125 mg PO TID [facility] Stop: 05/22/18 21:01 Vancomycin HCl (First Vancomycin) 125 mg PO BID [facility] Stop: 05/29/18 21:01 Vancomycin HCl (First Vancomycin) 125 mg PO DAILY [facility] Stop: 06/05/18 09:01
[2018-05-10] MEDS: Nystatin 500,000 UNITS/5 ML UDCUP SSP SCH (20:27)
[2018-05-11 05:16] LABS: Anion Gap 11 mmol/L (10-20); BUN (Urea Nitrogen) Less than 4 mg/dL (9.8-20.1); Calc. Creatinine Clearance 147 mL/min (70-130); Calcium 8.5 mg/dL (7.8-10.44); Carbon Dioxide 21 mmol/L (23-31); Chloride 110 mmol/L (98-107); Estimated GFR-MDRD Greater than 90; Glucose 111 mg/dL (80-115); Magnesium 1.8 mg/dL (1.6-2.6); Sodium 139 mmol/L (136-145)
[2018-05-11 05:19] LABS: Hemoglobin 9.7 g/dL (12.0-16.0); Mean Corpuscular HGB CONC 34.7 g/dL (32.0-36.0); Mean Corpuscular Hemoglobin 31.5 pg (27.0-31.0); Mean Corpuscular Volume 90.7 fL (78.0-98.0); Mean Platelet Volume 8.6 fL (7.4-10.4); Platelet Count 154 thou/uL (130-400); Potassium 2.8 mmol/L (3.5-5.1); RBC Distribution Width 16.2 % (11.5-14.5); Red Blood Cell (RBC) Count 3.08 mill/uL (4.20-5.40); White Blood Cell (WBC) Count 6.8 thou/uL (4.8-10.8)
[2018-05-11] MEDS: cefTRIAXone\\ROCEPHIN 1 GM in Sodium Chloride 0.9% 100 ML IVPB SCH (05:23)
[2018-05-11] MEDS ORDERED: Potassium Chloride 20 MEQ TAB PO SCH (05:45)
[2018-05-11] MEDS: Rosuvastatin 20 MG TAB PO SCH (08:22)
[2018-05-11] MEDS: Fish Oil 1,000 MG CAP PO SCH (08:22)
[2018-05-11] MEDS: Potassium Chloride 20 MEQ TAB PO SCH (08:22)
[2018-05-11] MEDS: Nystatin 500,000 UNITS/5 ML UDCUP SSP SCH ×2 (08:22→20:34)
[2018-05-11] MEDS: Vancomycin HCl 25 MG/ML Oral PO SCH ×4 (08:22→20:33)
[2018-05-11] MEDS: Furosemide 40 MG TAB PO SCH (08:23)
[2018-05-11] MEDS: Allopurinol 300 MG TAB PO SCH (08:23)
[2018-05-11] MEDS: Gabapentin 100 MG CAP PO SCH ×3 (08:23→20:34)
[2018-05-11] MEDS: Saccharomyces boulardii 250 MG CAP PO SCH (08:23)
[2018-05-11] MEDS: Carvedilol 25 MG TAB PO SCH ×2 (08:23→20:34)
[2018-05-11] MEDS: Potassium Chloride 20 MEQ in Premix Bag 1 BAG IVPB SCH ×3 (10:42→18:10)
--- NOTE | 2018-05-11 12:48 | PDOC.PN ---
- Subjective Encounter Start Date: 05/11/18 Encounter Start Time: 12:47 Patient seen and examined by me. Lying in bed comfortably. States that she wants to go to rehab facility. - Objective Resuscitation Status: Resuscitation Status FULL:Full Resuscitation MAR Reviewed: Yes Vital Signs & Weight: Vital Signs (12 hours) Temp Pulse Resp BP Pulse Ox 05/11/18 12:23 98.8 F 78 18 136/87 100 05/11/18 08:00 98.5 F 76 20 05/11/18 07:46 98.5 F 76 20 139/79 96 05/11/18 04:00 98.6 F 84 18 150/79 H 97 Weight Admit Weight 230 lb 14.4 oz Weight 229 lb 4.974 oz I&O: 05/10/18 05/11/18 05/12/18 06:59 06:59 06:59 Intake Total 2420 2830 240 Output Total 750 Balance 2420 2080 240 Result Diagrams: 05/11/18 04:43 05/11/18 04:43 Additional Labs: Accuchecks 05/11/18 05/11/18 05/10/18 11:43 04:27 19:48 POC Glucose 115 H 108 111 H 05/10/18 15:54 POC Glucose 121 H Phys Exam - Physical Examination Constitutional: NAD HEENT: PERRLA, moist MMs Neck: no JVD Respiratory: no wheezing, no rales, no rhonchi Cardiovascular: RRR, no significant murmur Gastrointestinal: soft, non-tender, no distention Musculoskeletal: no edema, pulses present Neurological: non-focal, normal sensation, moves all 4 limbs Psychiatric: normal affect Skin: no rash Dx/Plan (1) Sepsis with acute organ dysfunction Code(s): A41.9 - SEPSIS, UNSPECIFIED ORGANISM; R65.20 - SEVERE SEPSIS WITHOUT SEPTIC SHOCK Status: Acute Comment: resolving. continue Antibiotics. (2) Hypokalemia Code(s): E87.6 - HYPOKALEMIA Status: Acute Comment: will replete with K riders and check labs in the AM (3) Rhabdomyolysis Code(s): M62.82 - RHABDOMYOLYSIS Status: Resolved Comment: rhabdo resolved. will d/c fluids. (4) Diabetes type 2, controlled Code(s): E11.9 - TYPE 2 DIABETES MELLITUS WITHOUT COMPLICATIONS Status: Chronic (5) Dyslipidemia Code(s): E78.5 - HYPERLIPIDEMIA, UNSPECIFIED Status: Chronic (6) Hypertension Code(s): I10 - ESSENTIAL (PRIMARY) HYPERTENSION Status: Chronic (7) Morbid obesity with BMI of 40.0-44.9, adult Code(s): E66.01 - MORBID (SEVERE) OBESITY DUE TO EXCESS CALORIES; Z68.41 - BODY MASS INDEX (BMI) 40.0-44.9, ADULT Status: Chronic (8) Multiple myeloma Code(s): C90.00 - MULTIPLE MYELOMA NOT HAVING ACHIEVED REMISSION Status: Chronic (9) Encephalopathy acute Code(s): G93.40 - ENCEPHALOPATHY, UNSPECIFIED Status: Resolved (10) Pressure ulcer Code(s): L89.90 - PRESSURE ULCER OF UNSPECIFIED SITE, UNSPECIFIED STAGE Status : Acute (11) UTI (urinary tract infection) Status: Acute Comment: asymtomatic - Plan * . Review of Systems - Review of Systems Constitutional: negative: fever, chills, sweats, weakness, malaise, other Eyes: negative: Pain, Vision Change, Conjunctivae Inflammation, Eyelid Inflammation, Redness, Other ENT: negative: Ear Pain, Ear Discharge, Nose Pain, Nose Discharge, Nose Congestion, Mouth Pain, Mouth Swelling, Throat Pain, Throat Swelling, Other Respiratory: negative: Cough, Dry, Shortness of Breath, Hemoptysis, SOB with Excertion, Pleuritic Pain, Sputum, Wheezing Cardiovascular: negative: chest pain, palpitations, orthopnea, paroxysmal nocturnal dyspnea, edema, light headedness, other Gastrointestinal: negative: Nausea, Vomiting, Abdominal Pain, Diarrhea, Constipation, Melena, Hematochezia, Other Genitourinary: negative: Dysuria, Frequency, Incontinence, Hematuria, Retention , Other Musculoskeletal: negative: Neck Pain, Shoulder Pain, Arm Pain, Back Pain, Hand Pain, Leg Pain, Foot Pain, Other Skin: negative: Rash, Lesions, Toi, Bruising, Other Neurological: negative: Weakness, Numbness, Incoordination, Change in Speech, Confusion, Seizures, Other - Medications/Allergies Allergies/Adverse Reactions: Allergies Allergy/AdvReac Type Severity Reaction Status Date / Time codeine Allergy Verified 05/04/18 16:21 morphine Allergy Verified 05/04/18 16:21 Sulfa (Sulfonamide Allergy Verified 08/06/18 16:21 Antibiotics) tramadol Allergy Verified 05/04/18 16:21 Medications: Current Medications Acetaminophen (Tylenol) 650 mg PO Q4H PRN PRN Reason: Headache/Fever or Pain Last Admin: 05/10/18 01:09 Dose: 650 mg Al Hydroxide/Mg Hydroxide (Maalox) 30 ml PO Q6H PRN PRN Reason: Heartburn or Indigestion Allopurinol (Zyloprim) 300 mg PO DAILY [facility] Last Admin: 05/11/18 08:23 Dose: 300 mg Calcium Carbonate (Tums) 1,000 mg PO Q4H PRN PRN Reason: Heartburn or Indigestion Carvedilol (Coreg) 25 mg PO BID [facility] Last Admin: 05/11/18 08:23 Dose: 25 mg Dextrose/Water (Dextrose 50%) 25 gm SLOW IVP PRN PRN PRN Reason: Hypoglycemia Fish Oil (Fish Oil) 1,000 mg PO DAILY [facility] Last Admin: 05/11/18 08:22 Dose: 1,000 mg Furosemide (Lasix) 40 mg PO DAILY [facility] Last Admin: 05/11/18 08:23 Dose: 40 mg Gabapentin (Neurontin) 100 mg PO TID [facility] Last Admin: 05/11/18 08:23 Dose: 100 mg Glucagon (Glucagon) 1 mg IM PRN PRN PRN Reason: Hypoglycemia Ceftriaxone Sodium 1 gm/ (Sodium Chloride) 100 mls @ 200 mls/hr IVPB Q24HR [facility] Last Admin: 05/11/18 05:23 Dose: 100 mls Dextrose/Water (D5w) 1,000 mls @ 0 mls/hr IV .Q0M PRN PRN Reason: Hypoglycemia Potassium Chloride 20 meq/ (Device) 100 mls @ 50 mls/hr IVPB Q4H [facility] Stop: 05/11/18 18:29 Last Admin: 05/11/18 10:42 Dose: 100 mls Insulin Human Regular (Humulin R) 0 units SC .MILD SLIDING SCALE PRN PRN Reason: Mild Correctional Scale Insulin Human Regular (Humulin R) 0 units SC .BEDTIME SLIDING SC PRN PRN Reason: Bedtime Correctional Scale Magnesium Hydroxide (Milk Of Magnesium) 30 ml PO DAILYPRN PRN PRN Reason: Constipation Menthol/Methyl Salicylate (Muscle Rub Cream (Bengay)) 0 gm TOP QIDPRN PRN PRN Reason: Joint Stiffness Last Admin: 05/09/18 10:35 Dose: 85 gm Mometasone Furoate/Formoterol Fumar (Dulera 100 Mcg/5 Mcg Inhaler) 1 puff INH BIDPRN PRN PRN Reason: SOB &/or Wheezing Nystatin (Mycostatin) 500,000 units SSP BID [facility] Last Admin: 05/11/18 08:22 Dose: 500,000 units Ondansetron HCl (Zofran Odt) 4 mg PO Q6H PRN PRN Reason: Nausea/Vomiting Last Admin: 05/09/18 06:30 Dose: 4 mg Ondansetron HCl (Zofran) 4 mg IVP Q6H PRN PRN Reason: Nausea/Vomiting Pantoprazole Sodium (Protonix) 40 mg PO DAILY [facility] Last Admin: 05/11/18 08:23 Dose: 40 mg Potassium Chloride (K-Dur) 20 meq PO DAILY [facility] Last Admin: 05/11/18 08:22 Dose: 20 meq Rosuvastatin Calcium (Crestor) 20 mg PO DAILY [facility] Last Admin: 05/11/18 08:22 Dose: 20 mg Saccharomyces Boulardii (Florastor) 250 mg PO DAILY [facility] Last Admin: 05/11/18 08:23 Dose: 250 mg Senna (Senokot) 2 tab PO HSPRN PRN PRN Reason: Constipation Sodium Chloride (Flush - Normal Saline) 10 ml IVF Q12HR [facility] Last Admin: 05/11/18 08:24 Dose: 10 ml Sodium Chloride (Flush - Normal Saline) 10 ml IVF PRN PRN PRN Reason: Saline Flush Vancomycin HCl (First Vancomycin) 125 mg PO QID [facility] Stop: 05/15/18 21:01 Last Admin: 05/11/18 12:34 Dose: 125 mg Vancomycin HCl (First Vancomycin) 125 mg PO TID [facility] Stop: 05/22/18 21:01 Vancomycin HCl (First Vancomycin) 125 mg PO BID [facility] Stop: 05/29/18 21:01 Vancomycin HCl (First Vancomycin) 125 mg PO DAILY [facility] Stop: 06/05/18 09:01
--- NOTE | 2018-05-11 14:40 | PQF ---
CLINICAL DOCUMENTATION IMPROVEMENT CLARIFICATION FORM: ICD-10 Updated PLEASE DO AN ADDENDUM TO THE PROGRESS NOTE WITH ANY DOCUMENTATION UPDATES OR ADDITIONS AND CARRY THROUGH TO DC SUMMARY. THANK YOU. DATE: 05/11 ATTN: DR. DUSTIN JAY Please exercise your independent, professional judgment in responding to the clarification form. Clinical indicators are provided on the bottom of this form for your review. Please check appropriate box(s): I (concur) with the Nursing Admission Skin Assessment findings as stated below. [ ] Pressure Ulcer: (Stage I: Erythema; Stage II: Partial thickness; Stage III : Full thickness; Stage IV: Necrosis to muscle/bone) [ ] Location: POA: [ ] Yes [ ] No [ ] Unable to determine Stage (I to IV): (Left Right Bilateral N/A ) [ ] Location: POA: [ ] Yes [ ] No [ ] Unable to determine Stage (I to IV): (Left Right Bilateral N/A ) [ ] No pressure ulcer diagnosis [ ] Other diagnosis [ ] Unable to determine In addition, please specify: Present on Admission (POA): [ ] Yes [ ] No [ ] Unable to determine For continuity of documentation, please document condition throughout progress notes and discharge summary. Thank You. CLINICAL INDICATORS - SIGNS / SYMPTOMS / LABS NURSING ADMISSION SKIN ASSESSMENT 05/08: STAGE II PRESSURE ULCER R BUTTOCK RISK FACTORS: MORBID OBESITY INABILITY TO CARE FOR SELF METABOLIC ENCEPHALOPATHY TREATMENTS: WAFFLE MATTRESS TURN Q2 HRS MEPILEX PLACED ON BUTTOCK THANK YOU! Yasmine (This form is maintained as a part of the permanent medical record) 2014 [employer] All Rights Reserved Yasmine Ardon RN, BSN [email or web address] Office: [phone] [facility]
--- NOTE | 2018-05-11 14:49 | PQF ---
CLINICAL DOCUMENTATION IMPROVEMENT CLARIFICATION FORM: ICD-10 Updated PLEASE DO AN ADDENDUM TO THE PROGRESS NOTE WITH ANY DOCUMENTATION UPDATES OR ADDITIONS AND CARRY THROUGH TO DC SUMMARY. THANK YOU. DATE: 05/11 ATTN: DR. DUSTIN JAY Please exercise your independent, professional judgment in responding to the clarification form. Clinical indicators are provided on the bottom of this form for your review. Please check appropriate box(es): [ ] Sepsis due to: (Pna, UTI, gangrenous gall bladder, etc.) [ ] Severe sepsis with acute organ dysfunction of: (Examples: respiratory failure, encephalopathy, acute kidney failure, other) [ ] Localized infection without sepsis [ ] Other diagnosis [ ] Unable to determine For continuity of documentation, please document condition throughout progress notes and discharge summary. Thank You. ER PRESENTATION 05/09: ALTERED MENTAL STATUS T: 101.4 HR: 117 PHYSICIAN H&P DOCUMENTATION 05/09: IMPRESSION: 1) TOXIC METABOLIC ENCEPHALOPATHY; 9) ABNORMAL LIVER FUNCTION TESTS, PROBABLY 2/2 SEPSIS NO FURTHER MENTION OF SEPSIS TO DATE RISK FACTORS: C DIFF DIARRHEA (DISCHARGED 05/08 PER ER REPORT) RECENT SALMONELLA BACTEREMIA (DISCHARGED 05/08 PER ER REPORT) RECENT UTI (DISCHARGED 05/08 PER ER REPORT) TREATMENTS: IV ANTIBIOTIC (ROCEPHIN 05/09 - PRESENT) IVF (2L NS IN ER 05/09; NS 05/09 - ) THANK YOU! Yasmine (This form is maintained as a part of the permanent medical record) 2014 [employer]. All Rights Reserved Yasmine Ardon RN, BSN [email or web address] Office: [phone] [facility]
--- NOTE | 2018-05-11 14:56 | PQF ---
CLINICAL DOCUMENTATION IMPROVEMENT CLARIFICATION FORM: ICD-10 Updated PLEASE DO AN ADDENDUM TO THE PROGRESS NOTE WITH ANY DOCUMENTATION UPDATES OR ADDITIONS AND CARRY THROUGH TO DC SUMMARY. THANK YOU. DATE: 05/11 ATTN: DR. DUSTIN JAY Please exercise your independent, professional judgment in responding to the clarification form. Clinical indicators are provided on the bottom of this form for your review. Please check appropriate box(s): [ ] UTI [ ] Contaminated urine specimen without UTI [ ] Other diagnosis [ ] Unable to determine In addition, please specify: Present on Admission (POA): [ ] Yes [ ] No [ ] Unable to determine For continuity of documentation, please document condition throughout progress notes and discharge summary. Thank You. CLINICAL INDICATORS - SIGNS / SYMPTOMS / LABS URINALYSIS 05/08: MODERATE BLOOD, TRACE LEUKOCYTE ESTERASE, WBC 4-6, URINE SQUAMOUS CELLS 11-20, 2+ YEAST (COLLECTED IN ER VIA VOID ON 05/08) URINE CULTURE 05/08: E COLI RISK FACTORS: RECENT UTI (DISCHARGED 05/07 PER ER REPORT) UNABLE TO CARE FOR SELF (PER ER REPORT) MORBID OBESITY TREATMENT: IV ANTIBIOTIC (ROCEPHIN 05/09 - PRESENT) THANK YOU! Yasmine (This form is maintained as a part of the permanent medical record) 2015 [employer] All Rights Reserved Yasmine Ardon RN, BSN [email or web address] Office: [phone] [facility]
[2018-05-11] MEDS: Acetaminophen 325 MG TAB PO PRN (20:33)
[2018-05-12 04:56] LABS: Anion Gap 13 mmol/L (10-20); BUN (Urea Nitrogen) 4 mg/dL (9.8-20.1); Calc. Creatinine Clearance 143 mL/min (70-130); Calcium 8.6 mg/dL (7.8-10.44); Carbon Dioxide 20 mmol/L (23-31); Chloride 111 mmol/L (98-107); Estimated GFR-MDRD Greater than 90; Glucose 131 mg/dL (80-115); Magnesium 1.9 mg/dL (1.6-2.6); Potassium 3.5 mmol/L (3.5-5.1); Sodium 140 mmol/L (136-145)
[2018-05-12] MEDS: cefTRIAXone\\ROCEPHIN 1 GM in Sodium Chloride 0.9% 100 ML IVPB SCH (05:53)
[2018-05-12] MEDS: Potassium Chloride 20 MEQ TAB PO SCH (10:32)
[2018-05-12] MEDS: Fish Oil 1,000 MG CAP PO SCH (10:32)
[2018-05-12] MEDS: Saccharomyces boulardii 250 MG CAP PO SCH (10:32)
[2018-05-12] MEDS: Rosuvastatin 20 MG TAB PO SCH (10:32)
[2018-05-12] MEDS: Furosemide 40 MG TAB PO SCH (10:32)
[2018-05-12] MEDS: Gabapentin 100 MG CAP PO SCH ×2 (10:33→16:32)
[2018-05-12] MEDS: Nystatin 500,000 UNITS/5 ML UDCUP SSP SCH (10:33)
[2018-05-12] MEDS: Acetaminophen 325 MG TAB PO PRN (10:33)
[2018-05-12] MEDS: Carvedilol 25 MG TAB PO SCH (10:33)
[2018-05-12] MEDS: Vancomycin HCl 25 MG/ML Oral PO SCH ×3 (10:34→16:30)
[2018-05-12] MEDS: Allopurinol 300 MG TAB PO SCH (10:37)
[2018-05-12 16:24] VITALS: BP 160/88; TEMP 98.1
[2018-05-16] MEDS ORDERED: Vancomycin HCl 25 MG/ML Oral PO SCH (09:00)
[2018-05-23] MEDS ORDERED: Vancomycin HCl 25 MG/ML Oral PO SCH (09:00)
[2018-05-30] MEDS ORDERED: Vancomycin HCl 25 MG/ML Oral PO SCH (09:00)
== END 2018-05-12 16:38 | DRG 871 ==
LOC: ERS 13:44 → T4-B 19:43 → OBSVTOIN 05-09 10:38
PROVIDERS: ADMIT Internal Medicine; ATTEND Internal Medicine
PROC: 30233N1 Transfusion of Nonautologous Red Blood Cells into Peripheral Vein, Percutaneous Approach (ICD-10-PCS; principal; 2018-02-07)
DX: A41.9 Sepsis, unspecified organism (principal); G92 Toxic encephalopathy; A04.72 Enterocolitis due to Clostridium difficile, not specified as recurrent; C90.00 Multiple myeloma not having achieved remission; Z68.41 Body mass index [BMI] 40.0-44.9, adult; M62.82 Rhabdomyolysis; N39.0 Urinary tract infection, site not specified; R65.20 Severe sepsis without septic shock; E11.9 Type 2 diabetes mellitus without complications; I10 Essential (primary) hypertension; D64.9 Anemia, unspecified; E66.01 Morbid (severe) obesity due to excess calories; E87.6 Hypokalemia; D63.8 Anemia in other chronic diseases classified elsewhere; L89.90 Pressure ulcer of unspecified site, unspecified stage; Z88.5 Allergy status to narcotic agent; Z88.2 Allergy status to sulfonamides
CPT/HCPCS: 36415; 36416; 36430; 71045; 80048; 80053; 81003; 81015; 82550; 82553; 83605; 83735; 84484; 85025; 85027; 86850; 86900; 86901; 87040; 87077; 87086; 87186; 93005; 96360; 96361; A4216; G8978-GP-CM; G8979-GP-CK; G8987-GO-CL; G8988-GO-CJ; J0696; J2405; J3480; J7050; P9016; Q0162

== ENCOUNTER 2018-06-12 11:48 | Day surgery (SDC) | payer MEDICARE, MEDICAID ==
[2018-06-12] MEDS ORDERED: Zoledronic Acid 4 MG in Sodium Chloride 0.9% 100 ML IVPB SCH (12:00)
== END 2018-06-12 16:33 | disposition home or self-care (01) ==
LOC: ONC/OP 11:48
PROVIDERS: ATTEND Nurse Practitioner Acute Care
DX: Z51.11 Encounter for antineoplastic chemotherapy (principal); C90.00 Multiple myeloma not having achieved remission; I10 Essential (primary) hypertension; E78.00 Pure hypercholesterolemia, unspecified; Z88.5 Allergy status to narcotic agent; Z88.2 Allergy status to sulfonamides; Z79.82 Long term (current) use of aspirin; Z79.899 Other long term (current) drug therapy
CPT/HCPCS: 36415; 80053; 82248; 83615; 83883; 84100; 84165; 84550; 96365; J3489; J7050

== ENCOUNTER 2018-06-22 11:00 | Emergency (ER) | payer MEDICARE, MEDICAID ==
[2018-06-22] MEDS ORDERED: Piperacillin/Tazobactam 4.5 GM VIAL ONE (12:40)
[2018-06-22 12:41] LABS: Bilirubin Small (Negative); Blood, Urine Small (Negative); Clarity CLEAR (Clear); Glucose, Urine (Dipstick) Negative (Negative); Leukocyte Negative (Negative); Nitrite Negative (Negative); Protein, Urine (Dipstick) 300 mg/dL (Neg-Trace); Specific Gravity, Urine 1.023 (1.002-1.036); pH, Urine 6.5 (5.0-9.0)
[2018-06-22 12:42] LABS: Hemoglobin 11.5 g/dL (12.0-16.0); Mean Corpuscular HGB CONC 32.3 g/dL (32.0-36.0); Mean Platelet Volume 9.2 fL (7.4-10.4); Platelet Count 231 thou/uL (130-400); RBC Distribution Width 17.4 % (11.5-14.5); Red Blood Cell (RBC) Count 3.69 mill/uL (4.20-5.40); White Blood Cell (WBC) Count 5.2 thou/uL (4.8-10.8)
[2018-06-22 12:44] LABS: Bacteria/HPF None Seen HPF (None Seen); RBC/HPF None Seen HPF (0-3)
[2018-06-22 12:45] LABS: Pathc Cast-AUWi Flag 7.26 (0-2.49)
[2018-06-22 12:46] LABS: Lactic Acid 1.6 mmol/L (0.5-2.2)
[2018-06-22 12:49] LABS: ALT (SGPT) 29 U/L (8-55); AST (SGOT) 33 U/L (5-34); Albumin 4.1 g/dL (3.4-4.8); Alkaline Phosphatase 93 U/L (40-150); Anion Gap 11 mmol/L (10-20); BUN (Urea Nitrogen) 12 mg/dL (9.8-20.1); Bilirubin, Total 1.4 mg/dL (0.2-1.2); Calc. Creatinine Clearance 0 mL/min (70-130); Calcium 9.3 mg/dL (7.8-10.44); Carbon Dioxide 22 mmol/L (23-31); Chloride 104 mmol/L (98-107); Estimated GFR-MDRD 57; Globulin 4.4 g/dL (2.4-3.5); Glucose 116 mg/dL (80-115); Potassium 3.3 mmol/L (3.5-5.1); Protein, Total 8.5 g/dL (6.0-8.3); Sodium 134 mmol/L (136-145)
[2018-06-22 12:54] LABS: Troponin I Less than 0.010 ng/mL (< 0.028)
[2018-06-22 13:02] LABS: Hyaline Casts/LPF 7-10 HYALINE CAST LPF (0-3 Hyaline); Other Casts/LPF None Seen LPF (0-3 Hyaline)
[2018-06-22 13:03] LABS: Renal Epithelial 0-3 HPF (0-3); Transitional Epithelial 0-3 HPF (0-3)
[2018-06-22 13:07] LABS: Anisocytosis SLIGHT = 6-15 cells (100X) (0-5/hpf); Band 27 % (5-11); Eosinophils 1 % (0-10); Lymphocytes 33 % (21-51); MDiff Complete? YES; Monocytes 10 % (0-10); Myelocyte 1 % (0-0); Neutrophil 26 % (42-75); PLT Morphology Comment Appears Adequate; Polychromasia MODERATE = 3-4 cells (100X) (0-2/hpf); Reactive Lymphocytes 1 % (0-10)
[2018-06-22] MEDS ORDERED: Potassium Chloride 20 MEQ TAB ONE (15:57)
[2018-06-22] MEDS ORDERED: Ondansetron ODT 4 MG TAB ONE (16:17)
== END 2018-06-22 16:45 | disposition home or self-care (01) ==
LOC: ERS 11:00
DX: E87.6 Hypokalemia (principal); N39.0 Urinary tract infection, site not specified; E11.9 Type 2 diabetes mellitus without complications; I10 Essential (primary) hypertension; E66.9 Obesity, unspecified; J42 Unspecified chronic bronchitis
CPT/HCPCS: 36415; 36416; 51701; 80053; 81001; 83605; 84484; 85025; 87040; 87077; 87086; 87149; 87186; 96361; 96365; 96375; A4353; J2543; Q0162

== ENCOUNTER 2018-07-16 13:05 | Inpatient (IN) | payer MEDICARE, MEDICAID ==
[2018-07-16 13:58] LABS: Mean Corpuscular HGB CONC 31.8 g/dL (32.0-36.0); Mean Corpuscular Hemoglobin 30.5 pg (27.0-31.0); Mean Corpuscular Volume 96.1 fL (78.0-98.0); Mean Platelet Volume 9.5 fL (7.4-10.4); Platelet Count 159 thou/uL (130-400); RBC Distribution Width 16.8 % (11.5-14.5); White Blood Cell (WBC) Count 4.9 thou/uL (4.8-10.8)
[2018-07-16 14:02] LABS: Bacteria/HPF 4+ HPF (None Seen); Bilirubin Negative (Negative); Blood, Urine Small (Negative); Glucose, Urine (Dipstick) Negative (Negative); Leukocyte Large (Negative); Nitrite Positive (Negative); Protein, Urine (Dipstick) 30 mg/dL (Neg-Trace); RBC/HPF 0-3 HPF (0-3); Squamous Epithelial 0-3 HPF (0-3); Urobilinogen 0.2 mg/dL (0.2-1.0)
[2018-07-16 14:03] LABS: Clarity Cloudy (Clear)
[2018-07-16 14:13] LABS: Hyaline Casts/LPF 0-3 HYALINE CAST LPF (0-3 Hyaline); Other Casts/LPF None Seen LPF (0-3 Hyaline)
[2018-07-16 14:15] LABS: ALT (SGPT) 40 U/L (8-55); AST (SGOT) 32 U/L (5-34); Albumin 3.6 g/dL (3.4-4.8); Alkaline Phosphatase 78 U/L (40-150); Anion Gap 12 mmol/L (10-20); BUN (Urea Nitrogen) 20 mg/dL (9.8-20.1); Bilirubin, Total 0.9 mg/dL (0.2-1.2); Calc. Creatinine Clearance 0 mL/min (70-130); Calcium 9.4 mg/dL (7.8-10.44); Carbon Dioxide 20 mmol/L (23-31); Chloride 110 mmol/L (98-107); Estimated GFR-MDRD 45; Globulin 4.4 g/dL (2.4-3.5); Glucose 98 mg/dL (80-115); Potassium 4.3 mmol/L (3.5-5.1); Sodium 138 mmol/L (136-145)
[2018-07-16 14:18] LABS: Anisocytosis SLIGHT = 6-15 cells (100X) (0-5/hpf); Band 25 % (5-11); Dohle Bodies SLIGHT; Lymphocytes 34 % (21-51); MDiff Complete? YES; Monocytes 3 % (0-10); Neutrophil 36 % (42-75); Ovalocytes SLIGHT = 2-5 cells (100X) (0-1/hpf); PLT Morphology Comment Appears Adequate; Polychromasia SLIGHT = 2-3 cells (100X) (0-2/hpf); Reactive Lymphocytes 2 % (0-10); Tear Drops SLIGHT = 2-5 cells (100X) (0-1/hpf)
[2018-07-16] MEDS ORDERED: cefTRIAXone\\ROCEPHIN 1 GM VIAL ONE (14:33)
--- NOTE | 2018-07-16 15:14 | RAD ---
RIGHT TIBIA AND FIBULA 2 VIEWS: HISTORY: A 63-year-old female with a history of leg pain. COMPARISON: 04/24/2018. FINDINGS: There is a fracture of the distal tibial shaft with some bony callus but there is no complete union a t this time. Arthrosis changes are noted of the right knee and possible old medial tibial plateau de pressed fracture. No evidence for an acute fracture or dislocation. IMPRESSION: Nonunion or delayed union minimally displaced oblique fracture of distal right tibia with some fairly extensive bony callus. Short-term followup for continued healing should be considered. No new acut e fracture. POS: [facility]
--- NOTE | 2018-07-16 15:26 | RAD ---
UPRIGHT PORTABLE CHEST ONE VIEW: History: 63-year-old female with hypotension. Comparison: 06-22-18 FINDINGS: These is some bilateral shoulder joint arthrosis. Monitor leads overlie the chest. There is some luce nt artifact changes over the left chest wall and right axillary region. Heart size is within normal l imits. The lungs are clear. No confluent pneumonia, overt edema, or pleural effusion. IMPRESSION: No significant acute intrathoracic disease. POS: [facility]
--- NOTE | 2018-07-16 16:34 | HP ---
DATE OF ADMISSION: 07/16/2018 PRIMARY CARE PROVIDER: Brian Craig M.D. CHIEF COMPLAINT: Referred to [facility] by [facility]. HISTORY OF PRESENT ILLNESS: The patient complains of days of frequency, dysuria, diarrhea, no blood, generalized weakness. No fever, no chills, no hematuria. The patient is a poor historian. PAST MEDICAL HISTORY: Pertinent for multiple myeloma followed by Oncology, history of C. difficile d iarrhea, diabetes mellitus type 2, hypertension, dyslipidemia, peripheral neuropathy. PAST SURGICAL HISTORY: , left knee surgery, tubal ligation, colonoscopy, EGD, umbilical her elijah repair. MEDICATIONS: Coreg 25 mg p.o. twice a day, furosemide 40 mg a day, glimepiride 2 mg a day, Protonix 40 mg a day, Crestor 10 mg a day, allopurinol 300 mg a day, aspirin 81 mg a day, Integra Plus 125 mg/ 1 mg once a day, dexamethasone 40 mg once a week, fish oil concentrate 1000 mg once a day, gabapentin 600 mg twice a day. ALLERGIES: To CODEINE, MORPHINE, SULFA, TRAMADOL and VICODIN. SOCIAL HISTORY: Lives at home. No tobacco, alcohol or drug use. CODE STATUS: Full code status. Her son, Robert is the surrogate decision maker. FAMILY HISTORY: Negative for heart disease or other inheritable diseases. REVIEW OF SYSTEMS: No headaches, dizziness or fainting. Eyes: No double vision, blurred vision, fl ashing lights. Ear, Nose and Throat: No ear pain or drainage. No nasal bleeding. No trouble swall owing. Cardiac: No chest pain, orthopnea or paroxysmal nocturnal dyspnea. Respiratory: No cough, wheezing or asthma. Gastrointestinal: Diarrhea, no melena, no blood per rectum, no abdominal pain, no nausea or vomiting. Genitourinary: Frequency, no hematuria. Positive dysuria. She states her u rine smells foul. Musculoskeletal: She has a recent fractured leg. She cannot wall. Her cast was removed over a month ago. She has had no followup since. She notes no swelling in her legs. When a sked why she cannot wall, she gives confusing answers. Psychiatric: History of toxic metabolic ence phalopathy, history of being a poor historian. Neurological: No strokes, seizures or focal weakness . Skin: No bruises, bleeding or rash. Heme/Lymph: No tender or swollen lymph nodes in the axilla, inguinal or cervical area. PHYSICAL EXAMINATION: GENERAL: She is an alert, cooperative, a bit here and there on the history. VITAL SIGNS: Blood pressure 89/60, pulse 80, respirations 18, temperature was 98.7. HEENT: Pupils equal and round. Extraocular movements are intact. Sclerae are white. Tympanic memb ranes are clear. Nose is clear. Oral mucous membranes are wet. Dental hygiene is good. NECK: Supple without jugular venous distention, adenopathy or thyromegaly. CHEST: Clear to auscultation and percussion. HEART: Regular rate and rhythm. First and second heart sounds are clear. There are no appreciated murmurs or gallops. ABDOMEN: Soft. Bowel sounds are normal. There is no hepatosplenomegaly, no mass, no rebound. EXTREMITIES: Reveal no cyanosis, clubbing or edema. However, in the affected leg, that is the right , distal it is tender to palpation. PULSES: Carotid, radial, femoral and dorsalis pedis pulses are intact. SKIN: Warm and dry without bruises or rash. PULSES: Carotid, radial, femoral and dorsalis pedis pulses intact. HEME/LYMPH: No tender or swollen lymph nodes in axilla, inguinal or cervical area. NEUROLOGIC: Cranial nerves II-XII are intact. Moves all extremities. Sensation is intact. IMAGING: Chest x-ray, no cardiomegaly, CHF or infiltrate, reviewed by me. EKG, regular sinus rhythm , normal, reviewed by me. Tib/fib x-ray, right tib-fib shows a distal tib/fib fracture with signific ant space and a minimally dislocated distal tibial fracture. There is some significant bony callus. However, I am quite suspicious of nonunion since she states she cannot walk, reviewed by me. LABORATORY DATA: Urine too many to count white cells with a large leukocyte esterase and a positive nitrite, high. Hematology, white count is 4.9, but she has a bandemia 25/100 cells with a low neutro kvng count of 36/100, platelet count is normal at 159,000. Sodium 133, potassium 4.3, chloride 110, carbon dioxide 20, BUN 20, creatinine 1.42. Liver function tests normal. Lactic acid normal. ADMITTING DIAGNOSES: 1. Sepsis syndrome based on bandemia, hypotension. 2. Urinary tract infection. 3. 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 4. Diabetes mellitus type 2. 5. Hypertension. 6. Dyslipidemia. 7. Multiple myeloma. 8. Anemia, most likely due to multiple myeloma. 9. Chronic kidney disease stage 3. PLAN: 1. Blood and urine cultures have been obtained. Followup CBC and basic metabolic profile will be ob tained tomorrow. 2. Rocephin 1 gram daily IV. 3. Accu-Cheks, sliding scale. Reinstitute oral hypoglycemic agent. 4. Selected home medicines. 5. Consult ortho, right tib/fib fracture. 6. Consult Oncology multiple myeloma. The patient is placed on a full admit basis as her situation is far too complicated at this time to b e sorted out in 24 hours. She will require at least 48 hours for a positive urine culture and sensit ivities, evaluation by ortho, etc.
[2018-07-16] MEDS ORDERED: Ondansetron ODT 4 MG TAB PO PRN (18:12)
[2018-07-16] MEDS ORDERED: Acetaminophen 325 MG TAB PO PRN (18:12)
[2018-07-16] MEDS ORDERED: Dextrose 5% in Water 1,000 ML IV PRN (18:12)
[2018-07-16] MEDS ORDERED: Zolpidem Tartrate 5 MG TAB PO PRN (18:12)
[2018-07-16] MEDS ORDERED: Dextrose 50% Abboject 50 ML SYRINGE SLOW IVP PRN (18:12)
[2018-07-16] MEDS: Sodium Chloride 0.9% 1,000 ML IV SCH (18:36)
[2018-07-16 18:41] VITALS: BMI 43.1
[2018-07-16] MEDS ORDERED: Prevnar 13-Val Conj/PF 0.5 ML SYRINGE IM ONE (19:00)
[2018-07-16] MEDS: Insulin Regular 300 UNITS/3 ML VIAL SC PRN (20:50)
--- NOTE | 2018-07-16 23:31 | CON ---
DATE OF CONSULTATION: 07/16/2018 CHIEF COMPLAINT: Weakness. HISTORY OF PRESENT ILLNESS: Ms. Huggins is a 63-year-old female who presented to the hospital today wi th multiple medical problems, mostly related to cystitis with dysuria. The patient has been admitted to the hospital for workup and treatment. She also has a history of multiple myeloma. Of note, adriana roximately 10 weeks ago, the patient reports she fell fracturing her right tibia and fibula. She was treated in a cast for 6 weeks and then subsequently into a boot. She has been seen by Dr. Blaine wilcox. She is scheduled for followup with him in the next few weeks. She has been progressi ng. She denies any pain in the leg. She has been out of her boot for at least 1 week and is startin g to bear some weight. She also has a long history of severe knee arthritis. She has had multiple k nee injections in the past. She is due for these as well she reports. She is not ambulating now bec ause of deconditioning and her knee pain. PAST MEDICAL HISTORY: Multiple myeloma, diabetes, hypertension, hyperlipidemia, neuropathy. PAST SURGICAL HISTORY: section, tubal ligation, colonoscopy, umbilical hernia, previous lef t knee surgery. ALLERGIES: CODEINE, MORPHINE, TRAMADOL, VICODIN and SULFA. SOCIAL HISTORY: The patient denies tobacco, alcohol, or drug use. Her son is with her at the [facility]. FAMILY MEDICAL HISTORY: Noncontributory. PHYSICAL EXAMINATION: VITAL SIGNS: Temperature is 98.5, pulse is 85, respiratory rate 16, oxygen saturation 96%, blood pre ssure is 112/74. GENERAL: She is alert, lying supine, no apparent distress, obese. HEENT: Normocephalic, atraumatic. RESPIRATORY: The patient is breathing comfortably. ABDOMEN: Soft, nontender, nondistended. MUSCULOSKELETAL: The patient's bilateral lower extremities have minimal edema. She is nontender to palpation. She has good range of motion of the ankles and feet. Her right tibial crest is nonpainfu l and has a normal contour. She does have significant varus alignment of her knees. She is tender t o palpation over the medial joint line of the knee. IMAGING DATA: X-rays of the right tibia demonstrate a healing distal third tibia fracture. There is significant callus formation. This fracture is healing appropriately given the timeline of approxim ately 8-10 weeks ago. She has advanced knee arthritis with collapse of the medial joint space. IMPRESSION: Subacute distal tibia fracture and advanced stages of healing. Medical problems includi ng cystitis. PLAN: The patient will have ongoing treatment for her multiple medical conditions. Regarding her ti soco, I think it is fine for her to bear weight as tolerated with assistance. She needs to work with physical therapy. She will need likely outpatient physical therapy to get her walking again. No nee d for a boot or brace at this point if she is comfortable. She can follow up with her orthopedic yanet Dr. Blaine azar for further treatment when she is discharged from the hospital.
[2018-07-17 04:38] LABS: Band 27 % (5-11); Hemoglobin 7.2 g/dL (12.0-16.0); Lymphocytes 27 % (21-51); MDiff Complete? YES; Mean Corpuscular HGB CONC 32.5 g/dL (32.0-36.0); Mean Corpuscular Hemoglobin 31.2 pg (27.0-31.0); Mean Platelet Volume 9.5 fL (7.4-10.4); Monocytes 10 % (0-10); Neutrophil 36 % (42-75); PLT Morphology Comment Appears Decreased; Platelet Count 123 thou/uL (130-400); RBC Distribution Width 16.4 % (11.5-14.5); Red Blood Cell (RBC) Count 2.32 mill/uL (4.20-5.40); White Blood Cell (WBC) Count 4.3 thou/uL (4.8-10.8)
[2018-07-17 04:59] LABS: Anion Gap 9 mmol/L (10-20); BUN (Urea Nitrogen) 18 mg/dL (9.8-20.1); Calc. Creatinine Clearance 85 mL/min (70-130); Calcium 8.4 mg/dL (7.8-10.44); Carbon Dioxide 18 mmol/L (23-31); Chloride 112 mmol/L (98-107); Estimated GFR-MDRD 60; Glucose 227 mg/dL (80-115); Potassium 4.1 mmol/L (3.5-5.1); Sodium 135 mmol/L (136-145)
[2018-07-17] MEDS: Insulin Regular 300 UNITS/3 ML VIAL SC PRN ×2 (06:29→17:59)
[2018-07-17] MEDS: Sodium Chloride 0.9% 1,000 ML IV SCH ×2 (06:30→21:48)
[2018-07-17] MEDS ORDERED: Sodium Chloride 0.65% Nasal 44 ML BOT EA NARE PRN (07:36)
[2018-07-17] MEDS ORDERED: Ondansetron PF 4 MG/2 ML Vial IVP PRN (07:36)
[2018-07-17] MEDS ORDERED: Diabetic Tussin 200 MG/10 ML UDCUP PO PRN (07:36)
[2018-07-17] MEDS ORDERED: Loratadine 10 MG TAB PO PRN (07:36)
[2018-07-17] MEDS ORDERED: hydrALAZINE 20 MG/ML VIAL SLOW IVP PRN (07:36)
[2018-07-17] MEDS ORDERED: Eucerin (Mineral Oil/Petrolatum,White) 30 gm Jar TOP PRN (07:36)
[2018-07-17] MEDS ORDERED: Artificial Tears 18 DROP/0.9 ML EA EYE PRN (07:36)
[2018-07-17] MEDS: Gabapentin 300 MG CAP PO SCH ×3 (08:49→20:17)
[2018-07-17] MEDS: Enoxaparin Sodium 40 MG/0.4 ML SYRINGE SC SCH (08:49)
[2018-07-17] MEDS: Saccharomyces boulardii 250 MG CAP PO SCH (08:49)
[2018-07-17] MEDS: Glimepiride 1 MG TAB PO SCH ×2 (08:49→16:23)
[2018-07-17] MEDS: Fish Oil 1,000 MG CAP PO SCH (08:49)
[2018-07-17] MEDS: Rosuvastatin 20 MG TAB PO SCH (08:52)
[2018-07-17] MEDS: Allopurinol 300 MG TAB PO SCH (08:52)
[2018-07-17] MEDS ORDERED: POMALIDOMIDE 4 MG PO SCH ×2 (09:00)
[2018-07-17] MEDS ORDERED: Allopurinol 300 MG TAB PO SCH (09:00)
[2018-07-17] MEDS ORDERED: Non-Formulary Item 1 EACH (Gabapentin [Gabapentin] 600 MG) PO SCH (09:00)
--- NOTE | 2018-07-17 10:27 | PDOC.PN ---
- Subjective Encounter Start Date: 07/17/18 Encounter Start Time: 09:20 -: old records requested/rev Patient seen and examined. No new complaints. No overnight events - Objective Resuscitation Status: Resuscitation Status FULL:Full Resuscitation MAR Reviewed: Yes Vital Signs & Weight: Vital Signs (12 hours) Temp Pulse Resp BP BP Pulse Ox 07/17/18 07:59 98.5 F 87 16 125/57 L 96 07/17/18 05:21 98.3 F 86 20 129/65 96 07/17/18 04:00 86 129/65 07/17/18 02:36 85 99/58 L 07/17/18 00:00 98.1 F 102 H 20 96/58 L 96 Weight Weight 228 lb 3.2 oz I&O: 07/16/18 07/17/18 07/18/18 06:59 06:59 06:59 Intake Total 1350 Balance 1350 Result Diagrams: 07/17/18 03:50 07/17/18 03:50 Additional Labs: Accuchecks 07/17/18 07/16/18 07/16/18 04:47 20:22 18:39 POC Glucose 244 H 269 H 194 H Phys Exam - Physical Examination Constitutional: NAD HEENT: PERRLA, moist MMs, sclera anicteric Neck: no JVD, supple Respiratory: no wheezing, no rales, no rhonchi Cardiovascular: RRR, no significant murmur, no rub Gastrointestinal: soft, non-tender, no distention, positive bowel sounds Musculoskeletal: no edema, pulses present Neurological: non-focal, moves all 4 limbs Lymphatic: no nodes Psychiatric: normal affect, A&O x 3 Skin: no rash, normal turgor Dx/Plan (1) Acute kidney injury Code(s): N17.9 - ACUTE KIDNEY FAILURE, UNSPECIFIED Status: Acute (2) Bacteremia, escherichia coli Code(s): R78.81 - BACTEREMIA Status: Acute (3) Pancytopenia Code(s): D61.818 - OTHER PANCYTOPENIA Status: Acute (4) Sepsis due to Escherichia coli Code(s): A41.51 - SEPSIS DUE TO ESCHERICHIA COLI [E. COLI] Status: Acute (5) Sepsis with acute organ dysfunction Code(s): A41.9 - SEPSIS, UNSPECIFIED ORGANISM; R65.20 - SEVERE SEPSIS WITHOUT SEPTIC SHOCK Status: Acute (6) UTI (urinary tract infection) Status: Acute Comment: (7) Diabetes type 2, controlled Code(s): E11.9 - TYPE 2 DIABETES MELLITUS WITHOUT COMPLICATIONS Status: Chronic (8) Dyslipidemia Code(s): E78.5 - HYPERLIPIDEMIA, UNSPECIFIED Status: Chronic (9) Hypertension Code(s): I10 - ESSENTIAL (PRIMARY) HYPERTENSION Status: Chronic (10) Morbid obesity with BMI of 40.0-44.9, adult Code(s): E66.01 - MORBID (SEVERE) OBESITY DUE TO EXCESS CALORIES; Z68.41 - BODY MASS INDEX (BMI) 40.0-44.9, ADULT Status: Chronic (11) Multiple myeloma Code(s): C90.00 - MULTIPLE MYELOMA NOT HAVING ACHIEVED REMISSION Status: Chronic - Plan cont current plan of care, continue antibiotics, PT/OT * medication reviewed as below * symptomatic treatment * continue rocephin * continue IVF * follow culture result * wound care * start PT * ortho recommendation noted. Review of Systems - Review of Systems ENT: negative: Ear Pain, Ear Discharge, Nose Pain, Nose Discharge, Nose Congestion, Mouth Pain, Mouth Swelling, Throat Pain, Throat Swelling, Other Respiratory: negative: Cough, Dry, Shortness of Breath, Hemoptysis, SOB with Excertion, Pleuritic Pain, Sputum, Wheezing Cardiovascular: negative: chest pain, palpitations, orthopnea, paroxysmal nocturnal dyspnea, edema, light headedness, other Gastrointestinal: negative: Nausea, Vomiting, Abdominal Pain, Diarrhea, Constipation, Melena, Hematochezia, Other Genitourinary: negative: Dysuria, Frequency, Incontinence, Hematuria, Retention , Other Musculoskeletal: negative: Neck Pain, Shoulder Pain, Arm Pain, Back Pain, Hand Pain, Leg Pain, Foot Pain, Other Skin: negative: Rash, Lesions, Toi, Bruising, Other - Medications/Allergies Allergies/Adverse Reactions: Allergies Allergy/AdvReac Type Severity Reaction Status Date / Time acetaminophen [From Vicodin] Allergy Verified 07/16/18 18:47 codeine Allergy Verified 05/04/18 16:21 hydrocodone [From Vicodin] Allergy Verified 07/16/18 18:47 morphine Allergy Verified 05/04/18 16:21 Sulfa (Sulfonamide Allergy Verified 05/04/18 16:21 Antibiotics) tramadol Allergy Verified 05/04/18 16:21 Medications: Current Medications Acetaminophen (Tylenol) 650 mg PO Q4H PRN PRN Reason: Headache/Fever/Mild Pain (1-3) Allopurinol (Zyloprim) 300 mg PO DAILY [facility] Last Admin: 07/17/18 08:52 Dose: 300 mg Artificial Tears (Tears Naturale) 2 drop EA EYE PRN PRN PRN Reason: Dry Eyes Dextrose/Water (Dextrose 50%) 25 gm SLOW IVP PRN PRN PRN Reason: Hypoglycemia Enoxaparin Sodium (Lovenox) 40 mg SC 0900 [facility] Last Admin: 07/17/18 08:49 Dose: 40 mg Fish Oil (Fish Oil) 1,000 mg PO DAILY [facility] Last Admin: 07/17/18 08:49 Dose: 1,000 mg Gabapentin (Neurontin) 600 mg PO TID [facility] Last Admin: 07/17/18 08:49 Dose: 600 mg Glimepiride (Amaryl) 1 mg PO BID-[facility] Last Admin: 07/17/18 08:49 Dose: 1 mg Glucagon (Glucagon) 1 mg IM PRN PRN PRN Reason: Hypoglycemia Guaifenesin (Robitussin Sf) 200 mg PO Q4H PRN PRN Reason: Cough Hydralazine HCl (Apresoline) 10 mg SLOW IVP Q4H PRN PRN Reason: SBP > 180 and HR < 70 Ceftriaxone Sodium 1 gm/ (Sodium Chloride) 100 mls @ 200 mls/hr IVPB Q24HR [facility] Dextrose/Water (D5w) 1,000 mls @ 0 mls/hr IV .Q0M PRN PRN Reason: Hypoglycemia Sodium Chloride (Normal Saline 0.9%) 1,000 mls @ 75 mls/hr IV .[id number] [facility] Last Admin: 07/17/18 06:30 Dose: 1,000 mls Insulin Human Regular (Humulin R) 0 units SC .MILD SLIDING SCALE PRN PRN Reason: Mild Correctional Scale Last Admin: 07/17/18 06:29 Dose: 3 unit Insulin Human Regular (Humulin R) 0 units SC .BEDTIME SLIDING SC PRN PRN Reason: Bedtime Correctional Scale Last Admin: 07/16/18 20:50 Dose: 3 unit Loratadine (Claritin) 10 mg PO DAILYPRN PRN PRN Reason: Sinus Symptoms Mineral Oil/White Petrolatum (Eucerin Cream) 0 gm TOP BIDPRN PRN PRN Reason: Dry Skin Ondansetron HCl (Zofran Odt) 4 mg PO Q6H PRN PRN Reason: Nausea/Vomiting Ondansetron HCl (Zofran) 4 mg IVP Q6H PRN PRN Reason: Nausea/Vomiting Pomalidomide [ (Pomalyst] 4 Mg) 0 each PO DAILY [facility] Rosuvastatin Calcium (Crestor) 20 mg PO DAILY [facility] Last Admin: 07/17/18 08:52 Dose: 20 mg Saccharomyces Boulardii (Florastor) 250 mg PO DAILY [facility] Last Admin: 07/17/18 08:49 Dose: 250 mg Sodium Chloride (Flush - Normal Saline) 10 ml IVF Q12HR [facility] Last Admin: 07/17/18 08:53 Dose: Not Given Sodium Chloride (Flush - Normal Saline) 10 ml IVF PRN PRN PRN Reason: Saline Flush Sodium Chloride ([place] Nasal [place] 0.65%) 0 ml EA NARE QIDPRN PRN PRN Reason: Nasal Congestion Zolpidem Tartrate (Ambien) 5 mg PO HSPRN PRN PRN Reason: Insomnia
[2018-07-17] MEDS ORDERED: Famotidine 20 MG TAB PO SCH (11:15)
--- NOTE | 2018-07-17 14:08 | CON ---
DATE OF CONSULTATION: 07/17/2018 REASON FOR CONSULTATION: Multiple myeloma. HISTORY OF PRESENT ILLNESS: Ms. Huggins is a pleasant 63-year-old -[place] female with IgG evans bda myeloma. She is on a 28-day cycle of Pomalyst which she takes the medication day 1 through 21. She is also on weekly Dexamethasone 40 mg oral over the last few days. She began to feel poorly. Alberto verdin presented to her Primary Care who sent her to the emergency department where she was diagnosed with E. coli bacteremia. She was admitted for antibiotics and further treatment. We were asked to see t he patient regarding her myeloma. The patient was on day 17 of Pomalyst. She also has multiple orth opedic issues which she has been seeing Dr. Peoples. She currently denies any chest pain or shortness of breath, no abdominal discomfort. She is mildly constipated. Denies any other complaints. PAST MEDICAL HISTORY: 1. IgG lambda myeloma diagnosed in 2008. 2. Diabetes mellitus. 3. Osteoarthritis. 4. Hypertension. 5. High cholesterol. 6. Chronic anemia. 7. Peptic ulcer disease. PAST SURGICAL HISTORY: 1. Orthopedic surgeries 2. Hernia repair. 3. . ALLERGIES: CODEINE, MORPHINE, SULFA, AND VICODIN. HOME MEDICATIONS: Reviewed in [place]. FAMILY HISTORY: Noncontributory. SOCIAL HISTORY: She is single, lives at home with her son. No alcohol, tobacco or illicit drug use. REVIEW OF SYSTEMS: A 12-point review of systems is negative except for noted in HPI. PHYSICAL EXAMINATION: VITAL SIGNS: Temperature is 98.5, pulse of 79, respiratory rate 16, BP is 113/75. She is 97% on guilherme m air. GENERAL: A well-developed, well-nourished female in no acute distress. HEENT: Normocephalic, atraumatic. Pupils equal and reactive to light. Poor dentition. NECK: Supple. CARDIOVASCULAR: Regular rate and rhythm. LUNGS: Clear. ABDOMEN: Obese, nontender, bowel sounds are positive. EXTREMITIES: No clubbing, cyanosis or edema. SKIN: No rash. HEMATOLOGIC: No petechia or purpura. No lymphadenopathy. NEUROLOGIC: Nonfocal. PSYCHIATRIC: The patient is alert and oriented and appropriate. PERTINENT LABORATORY AND X-RAYS: Current WBCs 4.3, hemoglobin 7.2, hematocrit 22.3, platelet count o f 123,000. She got 36% neutrophils, 27% bands, 27% lymphocytes. Sodium is 135, potassium 4.1, chlor ole 112, CO2 is 18, BUN is 18, creatinine 1.12, glucose is 202, calcium 8.4. Total bilirubin is 0.9, AST 34, ALT is 40, alkaline phosphatase 78, serum total protein 8, albumin 3.6, globulin 4.4. Urine showed 4+ bacteria. IMPRESSION: 1. IgG lambda myeloma, on Pomalyst and dexamethasone. 2. Escherichia coli bacteremia. DISCUSSION: The patient is currently on antibiotics and IV fluids. She is on day 17 of Pomalyst. H er medication is at home. She has no way of getting it to this facility. She is on her recovery nex t week, so we are discontinuing Pomalyst at this time. She will follow up next week in the clinic to see Dr. Jones. Thank you for the consult.
[2018-07-17] MEDS ORDERED: cefTRIAXone\\ROCEPHIN 1 GM in Sodium Chloride 0.9% 100 ML IVPB SCH (15:00)
[2018-07-18] MEDS: Piperacillin/Tazobactam 3.375 GM in Sodium Chloride 0.9% 100 ML IVPB SCH ×2 (01:13→09:10)
[2018-07-18] MEDS: Insulin Regular 300 UNITS/3 ML VIAL SC PRN ×3 (06:14→15:44)
[2018-07-18] MEDS ORDERED: Famotidine 20 MG TAB PO SCH (09:00)
[2018-07-18] MEDS: Saccharomyces boulardii 250 MG CAP PO SCH (09:09)
[2018-07-18] MEDS: Fish Oil 1,000 MG CAP PO SCH (09:09)
[2018-07-18] MEDS: Rosuvastatin 20 MG TAB PO SCH (09:09)
[2018-07-18] MEDS: Glimepiride 1 MG TAB PO SCH ×2 (09:09→16:40)
[2018-07-18] MEDS: Gabapentin 300 MG CAP PO SCH ×3 (09:09→20:31)
[2018-07-18] MEDS: Enoxaparin Sodium 40 MG/0.4 ML SYRINGE SC SCH (09:10)
[2018-07-18] MEDS: Allopurinol 300 MG TAB PO SCH (09:12)
--- NOTE | 2018-07-18 10:16 | PDOC.PN ---
- Subjective Encounter Start Date: 07/18/18 Encounter Start Time: 08:30 c/o GERD, wants her protonix, last night antibiotic changed to zosyn - Objective Resuscitation Status: Resuscitation Status FULL:Full Resuscitation MAR Reviewed: Yes Vital Signs & Weight: Vital Signs (12 hours) Temp Pulse Resp BP BP Pulse Ox 07/18/18 08:00 94 L 07/18/18 07:30 98.4 F 68 20 123/76 94 L 07/18/18 04:00 98.4 F 93 20 136/80 95 07/18/18 00:00 98.5 F 81 20 118/74 95 Weight Admit Weight 228 lb 3.2 oz Weight 228 lb 3.2 oz I&O: 07/17/18 07/18/18 07/19/18 06:59 06:59 06:59 Intake Total 1350 2190 240 Balance 1350 2190 240 Result Diagrams: 07/17/18 03:50 07/17/18 03:50 Additional Labs: Accuchecks 07/18/18 07/17/18 07/17/18 04:23 19:31 16:42 POC Glucose 162 H 191 H 204 H 07/17/18 11:03 POC Glucose 202 H Phys Exam - Physical Examination Constitutional: NAD HEENT: PERRLA, moist MMs, sclera anicteric Neck: no JVD, supple Respiratory: no wheezing, no rales, no rhonchi Cardiovascular: RRR, no significant murmur, no rub Gastrointestinal: soft, non-tender, no distention, positive bowel sounds Musculoskeletal: no edema, pulses present Neurological: moves all 4 limbs Lymphatic: no nodes Psychiatric: normal affect, A&O x 3 Skin: no rash, normal turgor Dx/Plan (1) Acute kidney injury Code(s): N17.9 - ACUTE KIDNEY FAILURE, UNSPECIFIED Status: Acute (2) Bacteremia, escherichia coli Code(s): R78.81 - BACTEREMIA Status: Acute (3) Pancytopenia Code(s): D61.818 - OTHER PANCYTOPENIA Status: Acute (4) Sepsis due to Escherichia coli Code(s): A41.51 - SEPSIS DUE TO ESCHERICHIA COLI [E. COLI] Status: Acute (5) Sepsis with acute organ dysfunction Code(s): A41.9 - SEPSIS, UNSPECIFIED ORGANISM; R65.20 - SEVERE SEPSIS WITHOUT SEPTIC SHOCK Status: Acute (6) UTI (urinary tract infection) Status: Acute Comment: (7) Diabetes type 2, controlled Code(s): E11.9 - TYPE 2 DIABETES MELLITUS WITHOUT COMPLICATIONS Status: Chronic (8) Dyslipidemia Code(s): E78.5 - HYPERLIPIDEMIA, UNSPECIFIED Status: Chronic (9) Hypertension Code(s): I10 - ESSENTIAL (PRIMARY) HYPERTENSION Status: Chronic (10) Morbid obesity with BMI of 40.0-44.9, adult Code(s): E66.01 - MORBID (SEVERE) OBESITY DUE TO EXCESS CALORIES; Z68.41 - BODY MASS INDEX (BMI) 40.0-44.9, ADULT Status: Chronic (11) Multiple myeloma Code(s): C90.00 - MULTIPLE MYELOMA NOT HAVING ACHIEVED REMISSION Status: Chronic - Plan cont current plan of care, continue antibiotics * pt has MDR UTI, ok to continue zosyn as per C & S result, will consult ID * medication reviewed as below * symptomatic treatment * add protonix * repeat labs tomorrow. Review of Systems - Review of Systems Eyes: negative: Pain, Vision Change, Conjunctivae Inflammation, Eyelid Inflammation, Redness, Other ENT: negative: Ear Pain, Ear Discharge, Nose Pain, Nose Discharge, Nose Congestion, Mouth Pain, Mouth Swelling, Throat Pain, Throat Swelling, Other Respiratory: negative: Cough, Dry, Shortness of Breath, Hemoptysis, SOB with Excertion, Pleuritic Pain, Sputum, Wheezing Cardiovascular: negative: chest pain, palpitations, orthopnea, paroxysmal nocturnal dyspnea, edema, light headedness, other Gastrointestinal: negative: Nausea, Vomiting, Abdominal Pain, Diarrhea, Constipation, Melena, Hematochezia, Other Genitourinary: negative: Dysuria, Frequency, Incontinence, Hematuria, Retention , Other Musculoskeletal: negative: Neck Pain, Shoulder Pain, Arm Pain, Back Pain, Hand Pain, Leg Pain, Foot Pain, Other Skin: negative: Rash, Lesions, Toi, Bruising, Other - Medications/Allergies Allergies/Adverse Reactions: Allergies Allergy/AdvReac Type Severity Reaction Status Date / Time acetaminophen [From Vicodin] Allergy Verified 07/16/18 18:47 codeine Allergy Verified 05/04/18 16:21 hydrocodone [From Vicodin] Allergy Verified 07/16/18 18:47 morphine Allergy Verified 05/04/18 16:21 Sulfa (Sulfonamide Allergy Verified 05/04/18 16:21 Antibiotics) tramadol Allergy Verified 05/04/18 16:21 Medications: Current Medications Acetaminophen (Tylenol) 650 mg PO Q4H PRN PRN Reason: Headache/Fever/Mild Pain (1-3) Allopurinol (Zyloprim) 300 mg PO DAILY [facility] Last Admin: 07/18/18 09:12 Dose: 300 mg Artificial Tears (Tears Naturale) 2 drop EA EYE PRN PRN PRN Reason: Dry Eyes Dextrose/Water (Dextrose 50%) 25 gm SLOW IVP PRN PRN PRN Reason: Hypoglycemia Enoxaparin Sodium (Lovenox) 40 mg SC 0900 [facility] Last Admin: 07/18/18 09:10 Dose: 40 mg Fish Oil (Fish Oil) 1,000 mg PO DAILY [facility] Last Admin: 07/18/18 09:09 Dose: 1,000 mg Gabapentin (Neurontin) 600 mg PO TID [facility] Last Admin: 07/18/18 09:09 Dose: 600 mg Glimepiride (Amaryl) 1 mg PO BID[facility] Last Admin: 07/18/18 09:09 Dose: 1 mg Glucagon (Glucagon) 1 mg IM PRN PRN PRN Reason: Hypoglycemia Guaifenesin (Robitussin Sf) 200 mg PO Q4H PRN PRN Reason: Cough Hydralazine HCl (Apresoline) 10 mg SLOW IVP Q4H PRN PRN Reason: SBP > 180 and HR < 70 Dextrose/Water (D5w) 1,000 mls @ 0 mls/hr IV .Q0M PRN PRN Reason: Hypoglycemia Piperacillin Sod/Tazobactam (Sod 3.375 gm/ Sodium Chloride) 100 mls @ 200 mls/ hr IVPB 0100,0900,1700 [facility] Last Admin: 07/18/18 09:10 Dose: 100 mls Insulin Human Regular (Humulin R) 0 units SC .MILD SLIDING SCALE PRN PRN Reason: Mild Correctional Scale Last Admin: 07/18/18 06:14 Dose: 2 unit Insulin Human Regular (Humulin R) 0 units SC .BEDTIME SLIDING SC PRN PRN Reason: Bedtime Correctional Scale Last Admin: 07/16/18 20:50 Dose: 3 unit Loratadine (Claritin) 10 mg PO DAILYPRN PRN PRN Reason: Sinus Symptoms Mineral Oil/White Petrolatum (Eucerin Cream) 0 gm TOP BIDPRN PRN PRN Reason: Dry Skin Ondansetron HCl (Zofran Odt) 4 mg PO Q6H PRN PRN Reason: Nausea/Vomiting Ondansetron HCl (Zofran) 4 mg IVP Q6H PRN PRN Reason: Nausea/Vomiting Pantoprazole Sodium (Protonix) 40 mg PO DAILY [facility] Pomalidomide [ (Pomalyst] 4 Mg) 0 each PO DAILY [facility] Rosuvastatin Calcium (Crestor) 20 mg PO DAILY [facility] Last Admin: 07/18/18 09:09 Dose: 20 mg Saccharomyces Boulardii (Florastor) 250 mg PO DAILY [facility] Last Admin: 07/18/18 09:09 Dose: 250 mg Sodium Chloride (Flush - Normal Saline) 10 ml IVF Q12HR [facility] Last Admin: 07/18/18 09:11 Dose: Not Given Sodium Chloride (Flush - Normal Saline) 10 ml IVF PRN PRN PRN Reason: Saline Flush Sodium Chloride ([place] Nasal [place] 0.65%) 0 ml EA NARE QIDPRN PRN PRN Reason: Nasal Congestion Zolpidem Tartrate (Ambien) 5 mg PO HSPRN PRN PRN Reason: Insomnia
[2018-07-18] MEDS ORDERED: Meropenem 1 GM in Sodium Chloride 0.9% 100 ML IVPB SCH (14:00)
[2018-07-18] MEDS: MEROPENEM 1 GM/50 ML 1 GM in Premix Bag 1 BAG IVPB SCH ×2 (14:59→21:24)
[2018-07-18] MEDS: Sodium Chloride 0.9% 1,000 ML IV SCH (17:54)
--- NOTE | 2018-07-18 18:49 | CON ---
DATE OF CONSULTATION: 07/18/2018 REASON FOR CONSULTATION: Bacteremia. HISTORY OF PRESENT ILLNESS: A 63-year-old patient known to us from prior visits with a history of multiple myeloma, type 2 diabetes, hypertension, previous episodes of salmonella bacteremia and C. diff colitis, who now presents with increased urinary frequency, dysuria, some loose stool. Did not report any fever or chills. No headaches, no change in visual symptoms, sore throat, odynophagia, dysphagia, no chest pain, no abdominal pain, no joint symptoms. PAST MEDICAL HISTORY: Multiple myeloma, C. difficile colitis, salmonella gastroenteritis with bacteremia, type 2 diabetes, hypertension, dyslipidemia, neuropathy. PAST SURGICAL HISTORY: , tubal ligation, colonoscopy, umbilical hernia repair. ALLERGIES: CODEINE, SULFA DRUGS, TRAMADOL, VICODIN. CURRENT HOME MEDICATIONS: Include Tylenol, Zyloprim, dextrose, enoxaparin, fish oil, Neurontin, Amaryl, Robitussin, Humulin, Claritin, ondansetron, Protonix, Pomalidomide, Zosyn, and zolpidem. FAMILY HISTORY: Noncontributory. PHYSICAL EXAMINATION: VITAL SIGNS: T-max 98.5, blood pressure 120/77, pulse 68, respirations 18, O2 sat 94%. GENERAL: Appears in no distress, oriented. Cushingoid features. SKIN: With tiny little ulcerated area stage I-II right gluteal region. Peripheral IV access. No Martinez catheter. No lymphadenopathy. HEENT: Ocular movements are conjugate. Sclerae white. Periorbital edema. Oral cavity not remarkable. She has no poarch teeth remaining in place. NECK: Supple, jugular vein distention. LUNGS: With symmetric clear breath sounds. HEART: S1, S2, regular rate. No S3, S4. ABDOMEN: Soft, not distended or tender. Question of bladder distention. EXTREMITIES: No joint inflammatory activity. 1+ edema lower extremities. Pulses 1+ in dorsalis pedis. He moves extremities equally. NEUROLOGIC: Cognitive function appears to be intact. LABORATORY DATA: White cell count is 4.9 and 4.3, hemoglobin 8, MCV 96, platelets wnl, 36% neutrophils and 25% bands. Chemistry with a creatinine of 1.12, which is a little bit higher than her baseline, but lower than when compared with the admitting value. Urinalysis greater than 50 wbc's, 30 protein. Microbiology with one set of blood cultures with gram negative anthony yet to be identified and susceptibility tested. The preliminary Verigene test did not match any organism in the panel. In the urine culture, we had E. coli which has ESBL phenotype. IMAGING STUDIES: We have a previous CT of abdomen and pelvis from April this year with diverticulosis, stable regional lymph nodes in the abdominal area. No hydronephrosis. 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 ASSESSMENT AND DISCUSSION: Multiple myeloma nonunion fracture, is steadily improving with healing, prior episode of salmonella bacteremia and Clostridium difficile colitis recently treated and now evidence of an invasive urinary tract infection with likely pyelonephritis. The absence of more overt inflammatory process is probably due to the immunosuppressive medications that have been used for treatment of her multiple myeloma. We will switch her to meropenem since clinical trials have shown a better outcome when compared with Zosyn for the ESBL invasive infections. PICC line placement and treat for about 2 weeks. Check postvoid residual to make sure she is not retaining. MTDD
[2018-07-19 04:30] LABS: Anion Gap 5 mmol/L (10-20); BUN (Urea Nitrogen) 14 mg/dL (9.8-20.1); Calc. Creatinine Clearance 134 mL/min (70-130); Carbon Dioxide 23 mmol/L (23-31); Chloride 119 mmol/L (98-107); Estimated GFR-MDRD Greater than 90; Potassium 3.2 mmol/L (3.5-5.1); Sodium 144 mmol/L (136-145)
[2018-07-19 04:37] LABS: Glucose 46 mg/dL (80-115)
[2018-07-19 04:38] LABS: Band 8 % (5-11); Eosinophils 2 % (0-10); Hemoglobin 6.7 g/dL (12.0-16.0); Lymphocytes 36 % (21-51); MDiff Complete? YES; Mean Corpuscular Hemoglobin 30.9 pg (27.0-31.0); Mean Corpuscular Volume 96.8 fL (78.0-98.0); Mean Platelet Volume 8.7 fL (7.4-10.4); Monocytes 12 % (0-10); Neutrophil 42 % (42-75); Nucleated RBC 1 % (0); PLT Morphology Comment Appears Adequate; Platelet Count 138 thou/uL (130-400); RBC Distribution Width 16.7 % (11.5-14.5); Red Blood Cell (RBC) Count 2.16 mill/uL (4.20-5.40); White Blood Cell (WBC) Count 4.4 thou/uL (4.8-10.8)
[2018-07-19] MEDS: MEROPENEM 1 GM/50 ML 1 GM in Premix Bag 1 BAG IVPB SCH ×3 (05:26→21:45)
[2018-07-19] MEDS ORDERED: Potassium Chloride 20 MEQ TAB PO SCH (07:45)
[2018-07-19] MEDS: Rosuvastatin 20 MG TAB PO SCH (08:30)
[2018-07-19] MEDS: Enoxaparin Sodium 40 MG/0.4 ML SYRINGE SC SCH (08:30)
[2018-07-19] MEDS: Gabapentin 300 MG CAP PO SCH ×3 (08:31→21:44)
[2018-07-19] MEDS: Saccharomyces boulardii 250 MG CAP PO SCH (08:31)
[2018-07-19] MEDS: Fish Oil 1,000 MG CAP PO SCH (08:32)
[2018-07-19] MEDS: Allopurinol 300 MG TAB PO SCH (08:32)
--- NOTE | 2018-07-19 10:17 | PDOC.PN ---
- Subjective Encounter Start Date: 07/19/18 Encounter Start Time: 08:30 Patient seen and examined. No new complaints. No overnight events pt did not enough yesterday last night her Blood sugar was low - Objective Resuscitation Status: Resuscitation Status FULL:Full Resuscitation MAR Reviewed: Yes Vital Signs & Weight: Vital Signs (12 hours) Temp Pulse Resp BP Pulse Ox 07/19/18 08:32 98.4 F 82 20 111/67 96 07/19/18 04:00 98.8 F 76 16 107/64 94 L 07/19/18 00:00 98.4 F 80 16 107/65 97 Weight Admit Weight 228 lb 3.2 oz Weight 228 lb 3.2 oz I&O: 07/18/18 07/19/18 07/20/18 06:59 06:59 06:59 Intake Total 2190 1720 240 Balance 2190 1720 240 Result Diagrams: 07/19/18 03:27 07/19/18 03:27 Additional Labs: Accuchecks 07/19/18 07/19/18 07/18/18 05:26 04:10 20:27 POC Glucose 151 H 51 L* 141 H 07/18/18 07/18/18 15:39 11:21 POC Glucose 316 H 156 H Phys Exam - Physical Examination Constitutional: NAD HEENT: PERRLA, moist MMs, sclera anicteric Neck: no JVD, supple Respiratory: no wheezing, no rales, no rhonchi Cardiovascular: RRR, no significant murmur, no rub Gastrointestinal: soft, non-tender, no distention, positive bowel sounds Musculoskeletal: no edema, pulses present Neurological: non-focal, normal sensation Psychiatric: normal affect, A&O x 3 Skin: no rash, normal turgor Dx/Plan (1) Acute kidney injury Code(s): N17.9 - ACUTE KIDNEY FAILURE, UNSPECIFIED Status: Acute (2) Bacteremia, escherichia coli Code(s): R78.81 - BACTEREMIA Status: Acute (3) Pancytopenia Code(s): D61.818 - OTHER PANCYTOPENIA Status: Acute (4) Sepsis due to Escherichia coli Code(s): A41.51 - SEPSIS DUE TO ESCHERICHIA COLI [E. COLI] Status: Acute (5) Sepsis with acute organ dysfunction Code(s): A41.9 - SEPSIS, UNSPECIFIED ORGANISM; R65.20 - SEVERE SEPSIS WITHOUT SEPTIC SHOCK Status: Acute (6) UTI (urinary tract infection) Status: Acute Comment: (7) Diabetes type 2, controlled Code(s): E11.9 - TYPE 2 DIABETES MELLITUS WITHOUT COMPLICATIONS Status: Chronic (8) Dyslipidemia Code(s): E78.5 - HYPERLIPIDEMIA, UNSPECIFIED Status: Chronic (9) Hypertension Code(s): I10 - ESSENTIAL (PRIMARY) HYPERTENSION Status: Chronic (10) Morbid obesity with BMI of 40.0-44.9, adult Code(s): E66.01 - MORBID (SEVERE) OBESITY DUE TO EXCESS CALORIES; Z68.41 - BODY MASS INDEX (BMI) 40.0-44.9, ADULT Status: Chronic (11) Multiple myeloma Code(s): C90.00 - MULTIPLE MYELOMA NOT HAVING ACHIEVED REMISSION Status: Chronic (12) Hypoglycemia associated with type 2 diabetes mellitus Code(s): E11.649 - TYPE 2 DIABETES MELLITUS WITH HYPOGLYCEMIA WITHOUT COMA Status: Acute (13) Hypokalemia Code(s): E87.6 - HYPOKALEMIA Status: Acute - Plan cont current plan of care, 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 * pt agreed with snu placement * pillowcase cleaner to arrange all tomorrow * medication reviewed as below * symptomatic treatment * hold amaryl today * replace potassium Review of Systems - Review of Systems ENT: negative: Ear Pain, Ear Discharge, Nose Pain, Nose Discharge, Nose Congestion, Mouth Pain, Mouth Swelling, Throat Pain, Throat Swelling, Other Respiratory: negative: Cough, Dry, Shortness of Breath, Hemoptysis, SOB with Excertion, Pleuritic Pain, Sputum, Wheezing Cardiovascular: negative: chest pain, palpitations, orthopnea, paroxysmal nocturnal dyspnea, edema, light headedness, other Gastrointestinal: negative: Nausea, Vomiting, Abdominal Pain, Diarrhea, Constipation, Melena, Hematochezia, Other Genitourinary: negative: Dysuria, Frequency, Incontinence, Hematuria, Retention , Other Musculoskeletal: negative: Neck Pain, Shoulder Pain, Arm Pain, Back Pain, Hand Pain, Leg Pain, Foot Pain, Other Skin: negative: Rash, Lesions, Toi, Bruising, Other - Medications/Allergies Allergies/Adverse Reactions: Allergies Allergy/AdvReac Type Severity Reaction Status Date / Time acetaminophen [From Vicodin] Allergy Verified 10/18/18 18:47 codeine Allergy Verified 05/04/18 16:21 hydrocodone [From Vicodin] Allergy Verified 07/16/18 18:47 morphine Allergy Verified 05/04/18 16:21 Sulfa (Sulfonamide Allergy Verified 05/04/18 16:21 Antibiotics) tramadol Allergy Verified 05/04/18 16:21 Medications: Current Medications Acetaminophen (Tylenol) 650 mg PO Q4H PRN PRN Reason: Headache/Fever/Mild Pain (1-3) Allopurinol (Zyloprim) 300 mg PO DAILY [facility] Last Admin: 07/19/18 08:32 Dose: 300 mg Artificial Tears (Tears Naturale) 2 drop EA EYE PRN PRN PRN Reason: Dry Eyes Dextrose/Water (Dextrose 50%) 25 gm SLOW IVP PRN PRN PRN Reason: Hypoglycemia Enoxaparin Sodium (Lovenox) 40 mg SC 0900 [facility] Last Admin: 07/19/18 08:30 Dose: 40 mg Fish Oil (Fish Oil) 1,000 mg PO DAILY [facility] Last Admin: 07/19/18 08:32 Dose: 1,000 mg Gabapentin (Neurontin) 600 mg PO TID [facility] Last Admin: 07/19/18 08:31 Dose: 600 mg Glucagon (Glucagon) 1 mg IM PRN PRN PRN Reason: Hypoglycemia Guaifenesin (Robitussin Sf) 200 mg PO Q4H PRN PRN Reason: Cough Hydralazine HCl (Apresoline) 10 mg SLOW IVP Q4H PRN PRN Reason: SBP > 180 and HR < 70 Dextrose/Water (D5w) 1,000 mls @ 0 mls/hr IV .Q0M PRN PRN Reason: Hypoglycemia Meropenem 1 gm/ Device 50 mls @ 200 mls/hr IVPB Q8HR [facility] Last Admin: 07/19/18 05:26 Dose: 50 mls Insulin Human Regular (Humulin R) 0 units SC .MILD SLIDING SCALE PRN PRN Reason: Mild Correctional Scale Last Admin: 07/18/18 15:44 Dose: 5 unit Insulin Human Regular (Humulin R) 0 units SC .BEDTIME SLIDING SC PRN PRN Reason: Bedtime Correctional Scale Last Admin: 07/16/18 20:50 Dose: 3 unit Loratadine (Claritin) 10 mg PO DAILYPRN PRN PRN Reason: Sinus Symptoms Mineral Oil/White Petrolatum (Eucerin Cream) 0 gm TOP BIDPRN PRN PRN Reason: Dry Skin Ondansetron HCl (Zofran Odt) 4 mg PO Q6H PRN PRN Reason: Nausea/Vomiting Ondansetron HCl (Zofran) 4 mg IVP Q6H PRN PRN Reason: Nausea/Vomiting Pantoprazole Sodium (Protonix) 40 mg PO DAILY [facility] Last Admin: 07/19/18 08:30 Dose: 40 mg Rosuvastatin Calcium (Crestor) 20 mg PO DAILY [facility] Last Admin: 07/19/18 08:30 Dose: 20 mg Saccharomyces Boulardii (Florastor) 250 mg PO DAILY [facility] Last Admin: 07/19/18 08:31 Dose: 250 mg Sodium Chloride (Flush - Normal Saline) 10 ml IVF Q12HR [facility] Last Admin: 07/19/18 08:32 Dose: Not Given Sodium Chloride (Flush - Normal Saline) 10 ml IVF PRN PRN PRN Reason: Saline Flush Sodium Chloride ([place] Nasal [place] 0.65%) 0 ml EA NARE QIDPRN PRN PRN Reason: Nasal Congestion Zolpidem Tartrate (Ambien) 5 mg PO HSPRN PRN PRN Reason: Insomnia
[2018-07-20] MEDS: MEROPENEM 1 GM/50 ML 1 GM in Premix Bag 1 BAG IVPB SCH ×3 (06:35→21:13)
[2018-07-20] MEDS: Fish Oil 1,000 MG CAP PO SCH (08:36)
[2018-07-20] MEDS: Enoxaparin Sodium 40 MG/0.4 ML SYRINGE SC SCH (08:37)
[2018-07-20] MEDS: Saccharomyces boulardii 250 MG CAP PO SCH (08:37)
[2018-07-20] MEDS: Gabapentin 300 MG CAP PO SCH ×3 (08:37→21:12)
[2018-07-20] MEDS: Rosuvastatin 20 MG TAB PO SCH (08:38)
--- NOTE | 2018-07-20 09:00 | PDOC.PN ---
- Subjective Encounter Start Date: 07/20/18 Encounter Start Time: 08:20 Patient seen and examined. No new complaints. No overnight events - Objective Resuscitation Status: Resuscitation Status FULL:Full Resuscitation MAR Reviewed: Yes Vital Signs & Weight: Vital Signs (12 hours) Temp Pulse Resp BP Pulse Ox 07/20/18 08:00 98.3 F 91 18 150/87 H 98 Weight Admit Weight 228 lb 3.2 oz Weight 228 lb 3.2 oz I&O: 07/19/18 07/20/18 07/21/18 06:59 06:59 06:59 Intake Total 1720 720 Balance 1720 720 Result Diagrams: 07/19/18 03:27 07/19/18 03:27 Additional Labs: Accuchecks 07/20/18 07/19/18 07/19/18 04:24 20:11 16:50 POC Glucose 107 121 H 62 L 07/19/18 11:44 POC Glucose 76 Phys Exam - Physical Examination Constitutional: NAD HEENT: PERRLA, moist MMs, sclera anicteric Neck: no JVD, supple Respiratory: no wheezing, no rales, no rhonchi Cardiovascular: RRR, no significant murmur, no rub Gastrointestinal: soft, non-tender, no distention, positive bowel sounds Musculoskeletal: no edema, pulses present Neurological: non-focal, normal sensation Lymphatic: no nodes Psychiatric: normal affect, A&O x 3 Skin: no rash, normal turgor Dx/Plan (1) Acute kidney injury Code(s): N17.9 - ACUTE KIDNEY FAILURE, UNSPECIFIED Status: Acute (2) Bacteremia, escherichia coli Code(s): R78.81 - BACTEREMIA Status: Acute (3) Pancytopenia Code(s): D61.818 - OTHER PANCYTOPENIA Status: Acute (4) Sepsis due to Escherichia coli Code(s): A41.51 - SEPSIS DUE TO ESCHERICHIA COLI [E. COLI] Status: Acute (5) Sepsis with acute organ dysfunction Code(s): A41.9 - SEPSIS, UNSPECIFIED ORGANISM; R65.20 - SEVERE SEPSIS WITHOUT SEPTIC SHOCK Status: Acute (6) UTI (urinary tract infection) Status: Acute Comment: (7) Diabetes type 2, controlled Code(s): E11.9 - TYPE 2 DIABETES MELLITUS WITHOUT COMPLICATIONS Status: Chronic (8) Dyslipidemia Code(s): E78.5 - HYPERLIPIDEMIA, UNSPECIFIED Status: Chronic (9) Hypertension Code(s): I10 - ESSENTIAL (PRIMARY) HYPERTENSION Status: Chronic (10) Morbid obesity with BMI of 40.0-44.9, adult Code(s): E66.01 - MORBID (SEVERE) OBESITY DUE TO EXCESS CALORIES; Z68.41 - BODY MASS INDEX (BMI) 40.0-44.9, ADULT Status: Chronic (11) Multiple myeloma Code(s): C90.00 - MULTIPLE MYELOMA NOT HAVING ACHIEVED REMISSION Status: Chronic (12) Hypoglycemia associated with type 2 diabetes mellitus Code(s): E11.649 - TYPE 2 DIABETES MELLITUS WITH HYPOGLYCEMIA WITHOUT COMA Status: Acute (13) Hypokalemia Code(s): E87.6 - HYPOKALEMIA Status: Acute (14) Symptomatic anemia Code(s): D64.9 - ANEMIA, UNSPECIFIED Status: Acute - Plan cont current plan of care, continue antibiotics, 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 Review of Systems - Review of Systems Eyes: negative: Pain, Vision Change, Conjunctivae Inflammation, Eyelid Inflammation, Redness, Other ENT: negative: Ear Pain, Ear Discharge, Nose Pain, Nose Discharge, Nose Congestion, Mouth Pain, Mouth Swelling, Throat Pain, Throat Swelling, Other Respiratory: negative: Cough, Dry, Shortness of Breath, Hemoptysis, SOB with Excertion, Pleuritic Pain, Sputum, Wheezing Cardiovascular: negative: chest pain, palpitations, orthopnea, paroxysmal nocturnal dyspnea, edema, light headedness, other Gastrointestinal: negative: Nausea, Vomiting, Abdominal Pain, Diarrhea, Constipation, Melena, Hematochezia, Other Genitourinary: negative: Dysuria, Frequency, Incontinence, Hematuria, Retention , Other Musculoskeletal: negative: Neck Pain, Shoulder Pain, Arm Pain, Back Pain, Hand Pain, Leg Pain, Foot Pain, Other - Medications/Allergies Allergies/Adverse Reactions: Allergies Allergy/AdvReac Type Severity Reaction Status Date / Time acetaminophen [From Vicodin] Allergy Verified 07/16/18 18:47 codeine Allergy Verified 05/04/18 16:21 hydrocodone [From Vicodin] Allergy Verified 07/16/18 18:47 morphine Allergy Verified 05/04/18 16:21 Sulfa (Sulfonamide Allergy Verified 05/04/18 16:21 Antibiotics) tramadol Allergy Verified 05/04/18 16:21 Medications: Current Medications Acetaminophen (Tylenol) 650 mg PO Q4H PRN PRN Reason: Headache/Fever/Mild Pain (1-3) Allopurinol (Zyloprim) 300 mg PO DAILY [facility] Last Admin: 07/19/18 08:32 Dose: 300 mg Artificial Tears (Tears Naturale) 2 drop EA EYE PRN PRN PRN Reason: Dry Eyes Dextrose/Water (Dextrose 50%) 25 gm SLOW IVP PRN PRN PRN Reason: Hypoglycemia Enoxaparin Sodium (Lovenox) 40 mg SC 0900 [facility] Last Admin: 07/20/18 08:37 Dose: 40 mg Fish Oil (Fish Oil) 1,000 mg PO DAILY [facility] Last Admin: 07/20/18 08:36 Dose: 1,000 mg Gabapentin (Neurontin) 600 mg PO TID [facility] Last Admin: 07/20/18 08:37 Dose: 600 mg Glucagon (Glucagon) 1 mg IM PRN PRN PRN Reason: Hypoglycemia Guaifenesin (Robitussin Sf) 200 mg PO Q4H PRN PRN Reason: Cough Hydralazine HCl (Apresoline) 10 mg SLOW IVP Q4H PRN PRN Reason: SBP > 180 and HR < 70 Dextrose/Water (D5w) 1,000 mls @ 0 mls/hr IV .Q0M PRN PRN Reason: Hypoglycemia Meropenem 1 gm/ Device 50 mls @ 200 mls/hr IVPB Q8HR [facility] Last Admin: 07/20/18 06:35 Dose: 50 mls Insulin Human Regular (Humulin R) 0 units SC .MILD SLIDING SCALE PRN PRN Reason: Mild Correctional Scale Last Admin: 07/18/18 15:44 Dose: 5 unit Insulin Human Regular (Humulin R) 0 units SC .BEDTIME SLIDING SC PRN PRN Reason: Bedtime Correctional Scale Last Admin: 07/16/18 20:50 Dose: 3 unit Loratadine (Claritin) 10 mg PO DAILYPRN PRN PRN Reason: Sinus Symptoms Mineral Oil/White Petrolatum (Eucerin Cream) 0 gm TOP BIDPRN PRN PRN Reason: Dry Skin Ondansetron HCl (Zofran Odt) 4 mg PO Q6H PRN PRN Reason: Nausea/Vomiting Ondansetron HCl (Zofran) 4 mg IVP Q6H PRN PRN Reason: Nausea/Vomiting Pantoprazole Sodium (Protonix) 40 mg PO DAILY [facility] Last Admin: 07/20/18 08:37 Dose: 40 mg Rosuvastatin Calcium (Crestor) 20 mg PO DAILY [facility] Last Admin: 07/20/18 08:38 Dose: 20 mg Saccharomyces Boulardii (Florastor) 250 mg PO DAILY [facility] Last Admin: 07/20/18 08:37 Dose: 250 mg Sodium Chloride (Flush - Normal Saline) 10 ml IVF Q12HR [facility] Last Admin: 07/20/18 08:39 Dose: 10 ml Sodium Chloride (Flush - Normal Saline) 10 ml IVF PRN PRN PRN Reason: Saline Flush Sodium Chloride ([place] Nasal [place] 0.65%) 0 ml EA NARE QIDPRN PRN PRN Reason: Nasal Congestion Zolpidem Tartrate (Ambien) 5 mg PO HSPRN PRN PRN Reason: Insomnia
[2018-07-20] MEDS: Allopurinol 300 MG TAB PO SCH ×2 (10:25→11:25)
--- NOTE | 2018-07-20 16:28 | PQF ---
MARVIN REEDER SALIM NOORJIBHAI MD [id number] CLINICAL DOCUMENTATION IMPROVEMENT CLARIFICATION FORM: ICD-10 Updated PLEASE DO AN ADDENDUM TO THE PROGRESS NOTE WITH ANY DOCUMENTATION UPDATES OR ADDITIONS AND CARRY THROUGH TO DC SUMMARY. THANK YOU. DATE: 07/20/18 / 07/21/18 ATTN: DR CARLIN/ DR BARBER Please exercise your independent, professional judgment in responding to the clarification form. Clinical indicators are provided on the bottom of this form for your review Please check appropriate box(s): Pancytopenia due to: [ x ] Chemotherapy due to chemotherapy/antineoplastic drugs [ ] Other drug-induced (please specify if known): [ ] Congenital [ ] Other diagnosis [ ] Unable to determine In addition, please specify: Present on Admission (POA): [ ] Yes [ ] No [ ] Unable to determine For continuity of documentation, please document condition throughout progress notes and discharge summary. Thank You. CLINICAL INDICATORS - SIGNS / SYMPTOMS / LABS Decreased WBC 07/17 wbc 4.3 per lab Decreased RBC / decreased H/H--> 07/16 RBC 2.6, HGB 8.0 per lab Decreased PLT--> plt 123 07/17 lab 07/17 IM: pancytopenia RISK FACTORS IgG Iambda multiple myeloma on chemo drug: Pomalyst per 07/17 Oncology note TREATMENT: Transfusions--> 07/20 1 unit of blood per orders Stop meds causing Pancytopenia per orders 07/17 Oncology consult per orders daily labs per orders 07/16 to date Thank you, Aliya (This form is maintained as a part of the permanent medical record) 2014 [employer] All Rights Reserved Aliya Minaya RN, BSN, CCDS [email or web address]
[2018-07-20] MEDS: Insulin Regular 300 UNITS/3 ML VIAL SC PRN (16:38)
--- NOTE | 2018-07-20 17:32 | SPC ---
SONOGRAPHIC GUIDED LEFT UPPER EXTREMITY PICC PLACEMENT: Date: 07/20/18 HISTORY: Urinary tract infection. FINDINGS: After explaining the procedure and answering all questions, the left upper extremity was prepped and draped in the usual sterile fashion. Sterile technique, buffered local anesthesia, sonographic guidan ce, and a 22 gauge needle were used to carefully access the left basilic vein. Standard technique was then used to place the tip of a 5 [place] single lumen PICC so that the tip lies at the level of the superior vena cava. The catheter was flushed and secured externally. The patient tolerated the proced ure well and was returned in unchanged condition. IMPRESSION: Left upper extremity PICC is ready for use. POS: HOA
--- NOTE | 2018-07-20 18:18 | PRG ---
DATE OF SERVICE: 07/20/2018 SUBJECTIVE: Feeling well. No respiratory symptoms or headaches, no shortness of breath, no abdomina l pain, no dysuria. PHYSICAL EXAMINATION: VITAL SIGNS: T-max 98.8, blood pressure 124/84, pulse 91, respiratory rate 16. GENERAL: Awake, oriented, pleasant. LUNGS: Clear. HEART: S1, S2, regular rate. ABDOMEN: Soft, not distended or tender. No bladder distention. EXTREMITIES: Moves extremities equally. LABORATORY: White cell count 4.4, hemoglobin 6.7, platelets 138 with 8% bands and 42% neutrophils an d creatinine 0.71. Microbiology with salmonella group D, venous blood and E. coli in the urine. She has had Salmonella group D in 06/22/2018 and then in 05/03/2018. DISCUSSION: Multiple myeloma prior nonunion fracture which is improving. Prior C. difficile colitis episode now with another recurrence of her salmonella bacteremia. Recurrent salmonella bacteremia c an be secondary to extraintestinal manifestations particularly mycotic aortic aneurysms endocarditis as the more common culprits. Gallbladder infections typically do not lead to recurrence of bacteremi a such as this patient has presented. The immune suppression probably plays a role in the persistenc e. Recurrent pyelonephritis also would be less likely since it has never been isolated from her urin e. We will check her 2-D echocardiogram and we will consider evaluation of hair her aorta with a [facility] st and abdomen CT with contrast. In terms of treatment, we will treat for a longer period of time, p robably 4 weeks with a carbapenem intravenously through the PICC line.
--- NOTE | 2018-07-20 20:49 | CT ---
CT ANGIOGRAM THORAX WITH IV CONTRAST AND 3D RECONSTRUCTIONS: CT ANGIOGRAM ABDOMEN AND PELVIS WITH IV CONTRAST AND 3D RECONSTRUCTIONS: 07/20/2018 HISTORY: Chronic Salmonella bacteremia. Evaluate for mycotic aneurysm. COMPARISON: CT angiogram thorax on 06/14/[address] abdomen and pelvis on 05/04/2018. FINDINGS: THORAX: The thoracic aorta is normal in caliber without evidence of an aortic dissection. The heart is mildly enlarged. There are subcentimeter, hypodense nodules seen in each lobe of the thyroid gland. The mediastinal structures have a normal CT appearance. This exam is obtained in the inspiratory phase of imaging. There are mild ground glass, as well as l inear densities, seen within the lungs bilaterally, predominantly in the upper lobes, which is likely related to atelectasis/volume loss. No discrete pulmonary nodule or mass is seen on this examinatio n. There is no evidence of a pleural effusion. Degenerative changes are seen in the spine. There is bilateral glenohumeral osteoarthropathy, greater on the left. ABDOMEN AND PELVIS: The liver, spleen, pancreas, bilateral adrenal glands, and kidneys demonstrate a normal CT appearance. The urinary bladder is not well distended. The uterus and adnexal structures have a grossly normal CT appearance. The abdominal aorta is normal in caliber without evidence of an aortic dissection. The mesenteric ve ssels are patent. There are two patent renal arteries bilaterally. Mild vascular calcifications are seen in the iliac arteries, but the iliac arteries are otherwise pat ent. Bilateral common femoral arteries are patent. Limited visualized proximal superficial femoral and profunda femoral arteries are patent. No aneurysm is seen involving the iliac or femoral vessels . The common duct is mildly prominent, but there is no intrahepatic biliary ductal dilatation apprec iated. This is similar to a prior study. No free fluid, fluid collection, or lymphadenopathy is seen in the abdomen or pelvis. A few scattere d colonic diverticula are identified. Degenerative changes are seen in the spine, with vacuum phenomenon seen within the intervertebral dis k spaces at multiple levels. There is a 10 mm osseous density seen within the right aspect of the central canal, at the L4-L5 leve l, adjacent to the facet joint. This is unchanged when compared to the study on 05/04/2018. This do es abut the facet joint and could potentially represent prominent degenerative changes. This does re sult in severe narrowing of the central spinal canal at this level. Nonemergent MRI lumbar spine is recommended for further evaluation. IMPRESSION: 1. Increased density focus right aspect of the central canal, at the L4-L5 level, which has density similar to the adjacent bone and could be related to degenerative changes involving the right facet j oint. This was also seen on the study of 05/04/2018. MRI lumbar spine may be helpful for further ev aluation. Multilevel degenerative changes are seen throughout the lumbar spine, as well as involving the thoracic spine. 2. Mild cardiomegaly. 3. The thoracic and abdominal aorta are normal in caliber, and there is no evidence of an aneurysm. Mesenteric vessels are patent, and no obvious aneurysm is appreciated. 4. Subcentimeter, [id number]-characterize, hypodense lesion, inferior pole, right kidney, not well evaluated on this examination due to motion artifact. 5. Subcentimeter, hypodense nodules in each lobe of the thyroid gland. Nonemergent thyroid ultrasou nd is recommended. POS: GREG
[2018-07-21 05:35] LABS: #Basophils 0.1 thou/uL (0.0-0.2); #Eosinphils 0.3 thou/uL (0.0-0.7); #Lymphocytes 1.5 thou/uL (1.20-3.40); #Monocytes 0.8 thou/uL (0.11-0.59); #Neutrophils 3.2 thou/uL (1.40-6.50); %Basophils 0.9 % (0.0-1.0); %Lymphocytes 25.7 % (21.0-51.0); %Monocytes 14.3 % (0.0-10.0); %Neutrophils 54.1 % (42.0-75.0); Hemoglobin 8.8 g/dL (12.0-16.0); Mean Corpuscular HGB CONC 32.3 g/dL (32.0-36.0); Mean Corpuscular Hemoglobin 30.5 pg (27.0-31.0); Mean Corpuscular Volume 94.7 fL (78.0-98.0); Mean Platelet Volume 9.4 fL (7.4-10.4); Platelet Count 154 thou/uL (130-400); RBC Distribution Width 15.7 % (11.5-14.5); Red Blood Cell (RBC) Count 2.89 mill/uL (4.20-5.40); White Blood Cell (WBC) Count 5.9 thou/uL (4.8-10.8)
[2018-07-21] MEDS: MEROPENEM 1 GM/50 ML 1 GM in Premix Bag 1 BAG IVPB SCH ×3 (05:50→21:07)
[2018-07-21 06:18] LABS: Anion Gap 15 mmol/L (10-20); BUN (Urea Nitrogen) 6 mg/dL (9.8-20.1); Calc. Creatinine Clearance 127 mL/min (70-130); Calcium 8.8 mg/dL (7.8-10.44); Carbon Dioxide 21 mmol/L (23-31); Chloride 109 mmol/L (98-107); Estimated GFR-MDRD Greater than 90; Glucose 146 mg/dL (80-115); Potassium 3.6 mmol/L (3.5-5.1); Sodium 141 mmol/L (136-145)
[2018-07-21] MEDS: Gabapentin 300 MG CAP PO SCH ×3 (08:54→21:07)
[2018-07-21] MEDS: Fish Oil 1,000 MG CAP PO SCH (08:54)
[2018-07-21] MEDS: Rosuvastatin 20 MG TAB PO SCH (08:54)
[2018-07-21] MEDS: Saccharomyces boulardii 250 MG CAP PO SCH (08:55)
[2018-07-21] MEDS: Enoxaparin Sodium 40 MG/0.4 ML SYRINGE SC SCH (08:55)
[2018-07-21] MEDS: Allopurinol 300 MG TAB PO SCH (09:43)
--- NOTE | 2018-07-22 00:06 | DIS ---
DATE OF ADMISSION: 07/16/2018 DATE OF DISCHARGE: 07/21/2018 DISCHARGE DIAGNOSES: 1. Bacteremia with Salmonella, recurrent. 2. Bacteremia Escherichia coli. 3. Urinary tract infection. 4. Sepsis due to Escherichia coli. 5. Pancytopenia. 6. Diabetes mellitus. 7. Dyslipidemia. 8. Hypertension. 9. Morbid obesity. 10. Multiple myeloma. 11. Hypoglycemia. 12. Hypokalemia. 13. Symptomatic anemia. 14. Right tibial fracture. HISTORY: The patient is a 63-year-old female, who presented via the Emergency Department complaining of dysuria and frequency and some diarrhea, as well as generalized weakness. The patient has a hist ory of multiple myeloma, is being followed by Oncology. The patient's initial workup revealed urinar y tract infection. She had some hypotension and some bandemia, was concerned for sepsis. HOSPITAL COURSE: The patient was admitted to the hospital and started on broad-spectrum antibiotics. She subsequently was seen in consultation by Orthopedic Surgery, who felt her tibial fracture initi ally noted was healing well and had no further recommendations nor significant weightbearing restrict ions. She was seen in consultation by Oncology Service, who indicated that the patient was doing wel l with current therapy of Pomalyst and recommended that she continue with that regimen. The patient was noted on the second day to have some mild pancytopenia, felt to be due to treatment for the multi ple myeloma. The patient subsequently also developed positive blood cultures initially for E. coli a nd then subsequently with Salmonella. The patient was then placed on meropenem. She was then given a PICC line and had placements arranged for long-term IV antibiotic therapy. She underwent a CT diss ection protocol to rule out possible source of Salmonella, recurrent bacteremia which was negative. Echocardiogram was pending. The plan was to continue for at least a 4-week course of IV antibiotics given that she had the recurrent source of the Salmonella. DISPOSITION: The patient will be [facility] for continued IV antibiotic therapy. Her a ctivity is as tolerated. She will receive physical therapy. She will remain on a diabetic diet. velvet will have meropenem 1 gram IV q.8 hours, loratadine 10 mg every day p.r.n., Protonix 40 mg every da y, Ambien 5 mg at bedtime p.r.n. She will continue with the Pomalyst 4 mg every day, rosuvastatin 20 mg every day, Integra 1 p.o. daily, and Coreg 25 mg b.i.d. She will need to follow up with Dr. Jaleel jordan and Dr. Craig, and she can return to the Emergency Department should she have any problems prior to that time. Also of note, at the time of discharge, the patient's echo results are still pending.
[2018-07-22] MEDS: MEROPENEM 1 GM/50 ML 1 GM in Premix Bag 1 BAG IVPB SCH ×3 (05:39→21:40)
[2018-07-22] MEDS: Gabapentin 300 MG CAP PO SCH ×3 (07:45→21:42)
[2018-07-22] MEDS: Saccharomyces boulardii 250 MG CAP PO SCH (07:45)
[2018-07-22] MEDS: Enoxaparin Sodium 40 MG/0.4 ML SYRINGE SC SCH (07:46)
[2018-07-22] MEDS: Allopurinol 300 MG TAB PO SCH (07:46)
[2018-07-22] MEDS: Rosuvastatin 20 MG TAB PO SCH (07:46)
[2018-07-22] MEDS: Fish Oil 1,000 MG CAP PO SCH (07:46)
[2018-07-22] MEDS: Insulin Regular 300 UNITS/3 ML VIAL SC PRN (17:56)
[2018-07-23] MEDS: MEROPENEM 1 GM/50 ML 1 GM in Premix Bag 1 BAG IVPB SCH ×3 (05:38→20:45)
[2018-07-23] MEDS: Insulin Regular 300 UNITS/3 ML VIAL SC PRN ×4 (05:38→20:46)
--- NOTE | 2018-07-23 07:36 | ADD-DIS ---
ADDENDUM Please see the dictated discharge summary dated 07/21/2018. The patient is doing well today. She has no complaint. She had a little soreness with the PICC line insertion site, but that has fully resolved now. She was initially denied last night for the [facility] because of her medications for the multiple myeloma, but the plan is now for her t o bring her own medication for that. PHYSICAL EXAMINATION: VITAL SIGNS: Temperature 98.7, pulse 92, respirations 18, O2 sat 95% on room air, BP 111/54. GENERAL: The patient is awake, alert, pleasant, cooperative. HEART: Regular rate and rhythm. LUNGS: Clear. ABDOMEN: Benign. EXTREMITIES: No edema. DISPOSITION: The [facility]. Please see details in the discharge packet and discharge summary dated 07/21/2018.
[2018-07-23] MEDS: Fish Oil 1,000 MG CAP PO SCH (08:51)
[2018-07-23] MEDS: Enoxaparin Sodium 40 MG/0.4 ML SYRINGE SC SCH (08:51)
[2018-07-23] MEDS: Gabapentin 300 MG CAP PO SCH ×3 (08:52→20:45)
[2018-07-23] MEDS: Saccharomyces boulardii 250 MG CAP PO SCH (08:52)
[2018-07-23] MEDS: Rosuvastatin 20 MG TAB PO SCH (08:52)
[2018-07-23] MEDS: Allopurinol 300 MG TAB PO SCH (08:52)
--- NOTE | 2018-07-23 20:48 | PDOC.PN ---
- Subjective Encounter Start Date: 07/23/18 Encounter Start Time: 17:00 - Objective Resuscitation Status: Resuscitation Status FULL:Full Resuscitation Vital Signs & Weight: Vital Signs (12 hours) Temp Pulse Resp BP BP Pulse Ox 07/23/18 20:16 98.4 F 95 22 H 149/74 H 95 07/23/18 15:37 98 F 87 18 153/76 H 97 07/23/18 11:26 98.3 F 87 20 131/69 97 Weight Admit Weight 228 lb 3.2 oz Weight 222 lb 7 oz I&O: 07/22/18 07/23/18 07/24/18 06:59 06:59 06:59 Intake Total 1390 1050 Output Total 1200 Balance 190 1050 Result Diagrams: 07/21/18 04:47 07/21/18 04:47 Additional Labs: Accuchecks 07/23/18 07/23/18 07/23/18 15:37 11:25 04:32 POC Glucose 253 H 240 H 245 H 07/22/18 20:33 POC Glucose 290 H Phys Exam - Physical Examination Constitutional: NAD Respiratory: no wheezing, no rales, no rhonchi, clear to auscultation bilateral Cardiovascular: RRR, no significant murmur Gastrointestinal: soft, non-tender Psychiatric: normal affect, A&O x 3 Dx/Plan (1) Salmonella bacteremia Code(s): R78.81 - BACTEREMIA Status: Acute (2) Bacteremia, escherichia coli Code(s): R78.81 - BACTEREMIA Status: Acute (3) UTI (urinary tract infection) Status: Acute Comment: (4) Diabetes type 2, controlled Code(s): E11.9 - TYPE 2 DIABETES MELLITUS WITHOUT COMPLICATIONS Status: Chronic (5) Hypertension Code(s): I10 - ESSENTIAL (PRIMARY) HYPERTENSION Status: Chronic (6) Multiple myeloma Code(s): C90.00 - MULTIPLE MYELOMA NOT HAVING ACHIEVED REMISSION Status: Chronic - Plan * Recurrent salmonella bacteremia. Long course of meropenem. PICC line placed. Accepted initially for placement. Held up due to the patient's meds for multiple myeloma. She is now going to use her own meds. Having it delivered, but meds have not arrived yet. Should go tomorrow. Otherwise, stable and doing well.
[2018-07-24] MEDS: MEROPENEM 1 GM/50 ML 1 GM in Premix Bag 1 BAG IVPB SCH ×2 (05:17→12:37)
[2018-07-24] MEDS: Gabapentin 300 MG CAP PO SCH (08:01)
[2018-07-24] MEDS: Saccharomyces boulardii 250 MG CAP PO SCH (08:01)
[2018-07-24] MEDS: Allopurinol 300 MG TAB PO SCH (08:01)
[2018-07-24] MEDS: Rosuvastatin 20 MG TAB PO SCH (08:01)
[2018-07-24] MEDS: Enoxaparin Sodium 40 MG/0.4 ML SYRINGE SC SCH (08:01)
[2018-07-24] MEDS: Fish Oil 1,000 MG CAP PO SCH (08:01)
[2018-07-24 12:14] VITALS: BP 119/64; TEMP 97.2
--- NOTE | 2018-07-25 14:10 | EKG ---
Test Reason : Blood Pressure : / mmHG Vent. Rate : 081 BPM Atrial Rate : 081 BPM P-R Int : 154 ms QRS Dur : 086 ms QT Int : 368 ms P-R-T Axes : 033 050 071 degrees QTc Int : 427 ms Normal sinus rhythm Normal ECG Confirmed by PEPE SERRA D.O. ([id number]), image editor MARGE ELLISON ([id number]) on 07/25/2018 2:10:11 PM Referred By: Confirmed By:PEPE SERRA D.O.
== END 2018-07-24 13:04 | DRG 871 ==
LOC: ERS 13:05 → T4-B 15:36
PROVIDERS: ADMIT Internal Medicine; ATTEND Internal Medicine
PROC: 02HV33Z Insertion of Infusion Device into Superior Vena Cava, Percutaneous Approach (ICD-10-PCS; principal; 2018-07-20)
DX: A41.51 Sepsis due to Escherichia coli [E. coli] (principal); D61.810 Antineoplastic chemotherapy induced pancytopenia; N39.0 Urinary tract infection, site not specified; C90.00 Multiple myeloma not having achieved remission; N17.9 Acute kidney failure, unspecified; Z68.41 Body mass index [BMI] 40.0-44.9, adult; A02.1 Salmonella sepsis; R65.20 Severe sepsis without septic shock; S82.301D Unspecified fracture of lower end of right tibia, subsequent encounter for closed fracture with routine healing; E11.22 Type 2 diabetes mellitus with diabetic chronic kidney disease; I12.9 Hypertensive chronic kidney disease with stage 1 through stage 4 chronic kidney disease, or unspecified chronic kidney disease; N18.3 Chronic kidney disease, stage 3 (moderate); E78.5 Hyperlipidemia, unspecified; E66.01 Morbid (severe) obesity due to excess calories; E11.42 Type 2 diabetes mellitus with diabetic polyneuropathy; E11.649 Type 2 diabetes mellitus with hypoglycemia without coma; E87.6 Hypokalemia; K21.9 Gastro-esophageal reflux disease without esophagitis; M17.10 Unilateral primary osteoarthritis, unspecified knee; Z16.12 Extended spectrum beta lactamase (ESBL) resistance; T45.1X5A Adverse effect of antineoplastic and immunosuppressive drugs, initial encounter; Z79.84 Long term (current) use of oral hypoglycemic drugs; Z88.5 Allergy status to narcotic agent; Z88.2 Allergy status to sulfonamides; Z88.8 Allergy status to other drugs, medicaments and biological substances
CPT/HCPCS: 36415; 36416; 36430; 36569; 51701; 71045; 71275; 80048; 80053; 81003; 81015; 83605; 85025; 86850; 86900; 86901; 87040; 87077; 87086; 87149; 87186; 90471; 90670; 90686; 93005; 93306; 96361; 96365; G0008; G0009; G8978-GP-CL; G8979-GP-CJ; G8987-GO-CL; G8988-GO-CJ; J0696; J1650; J1815; J2185; J2543; J7050; P9016

== ENCOUNTER 2018-07-31 10:09 | Outpatient (CLI) | payer MEDICARE, MEDICAID | END 2018-07-31 10:10 | disposition home or self-care (01) | LOC: BICMAMMO 10:09 | PROVIDERS: ATTEND Family Medicine | DX: Z12.31 Encounter for screening mammogram for malignant neoplasm of breast (principal); Z80.3 Family history of malignant neoplasm of breast | CPT/HCPCS: 77063; 77067 ==

== ENCOUNTER 2018-08-04 07:22 | Inpatient (IN) | payer MEDICARE, MEDICAID ==
[2018-08-04] MEDS ORDERED: Acetaminophen 500 MG TAB ONE (07:48)
[2018-08-04 08:00] LABS: Mean Corpuscular HGB CONC 31.2 g/dL (32.0-36.0); Mean Platelet Volume 9.9 fL (7.4-10.4); Platelet Count 209 thou/uL (130-400); RBC Distribution Width 16.8 % (11.5-14.5); Red Blood Cell (RBC) Count 2.67 mill/uL (4.20-5.40); White Blood Cell (WBC) Count 5.4 thou/uL (4.8-10.8)
[2018-08-04 08:14] LABS: Band 6 % (5-11); Eosinophils 12 % (0-10); Lymphocytes 24 % (21-51); MDiff Complete? YES; Monocytes 18 % (0-10); Neutrophil 38 % (42-75); PLT Morphology Comment Appears Adequate; Polychromasia MODERATE = 3-4 cells (100X) (0-2/hpf)
[2018-08-04 08:21] LABS: ALT (SGPT) 26 U/L (8-55); AST (SGOT) 39 U/L (5-34); Albumin 3.3 g/dL (3.4-4.8); Alkaline Phosphatase 76 U/L (40-150); Anion Gap 13 mmol/L (10-20); BUN (Urea Nitrogen) 12 mg/dL (9.8-20.1); Bilirubin, Total 1.2 mg/dL (0.2-1.2); Calc. Creatinine Clearance 0 mL/min (70-130); Calcium 9.1 mg/dL (7.8-10.44); Carbon Dioxide 25 mmol/L (23-31); Chloride 104 mmol/L (98-107); Estimated GFR-MDRD Greater than 90; Globulin 4.6 g/dL (2.4-3.5); Glucose 105 mg/dL (80-115); Potassium 3.7 mmol/L (3.5-5.1); Protein, Total 7.9 g/dL (6.0-8.3); Sodium 138 mmol/L (136-145)
[2018-08-04 08:30] LABS: CKMB 0.2 ng/mL (0-6.6); Troponin I Less than 0.010 ng/mL (< 0.028)
[2018-08-04 08:42] LABS: Bilirubin Negative (Negative); Blood, Urine Trace (Negative); Clarity CLEAR (Clear); Glucose, Urine (Dipstick) Negative (Negative); Leukocyte Negative (Negative); Nitrite Negative (Negative); Protein, Urine (Dipstick) 100 mg/dL (Neg-Trace); Specific Gravity, Urine 1.019 (1.002-1.036); pH, Urine 6.5 (5.0-9.0)
[2018-08-04 08:44] LABS: Hyaline Casts/LPF 4-6 HYALINE CAST LPF (0-3 Hyaline); Pathc Cast-AUWi Flag 1.01 (0-2.49); RBC/HPF 0-3 HPF (0-3); WBC/HPF 0-3 HPF (0-3)
[2018-08-04] MEDS ORDERED: Piperacillin/Tazobactam 4.5 GM VIAL ONE (08:44)
[2018-08-04 09:02] LABS: Bacteria/HPF Rare-Few HPF (None Seen); Yeast-All Forms None Seen HPF (None Seen)
--- NOTE | 2018-08-04 09:15 | RAD ---
PORTABLE CHEST 1 VIEW: Date: 08/04/18 Time: 0740 hours HISTORY: Cough. FINDINGS/IMPRESSION: Comparison made with exam of 07/16/18. Interval placement of a left upper extremity PICC line is seen with tip in the projection of the SVC. The heart size is normal. The lungs are well expanded with bilateral interstitial infiltrates. No lo bar consolidation, pneumothoraces, or large effusions are seen. POS: [facility]
[2018-08-04] MEDS ORDERED: Senokot S 8.6-50 MG TAB PO PRN (12:02)
[2018-08-04] MEDS ORDERED: Dextrose 5% in Water 1,000 ML IV PRN (12:05)
[2018-08-04] MEDS ORDERED: Dextrose 50% Abboject 50 ML SYRINGE SLOW IVP PRN (12:05)
[2018-08-04 12:38] VITALS: BMI 40.1
[2018-08-04] MEDS: Sodium Chloride 0.9% 1,000 ML IV SCH (12:45)
--- NOTE | 2018-08-04 13:35 | HP ---
DATE OF ADMISSION: 08/04/2018 PRIMARY CARE PROVIDER: Brian Craig M.D. CHIEF COMPLAINT: Cough. HISTORY OF PRESENT ILLNESS: Ms. Huggins is a pleasant 63-year-old lady who was seen at [facility] on 08/04/2018. She was hospitalized at this facility from 07/16/2018 to 8. During that hospitalization, she was found to have salmonella D group bacteremia as well as Esche richia coli urinary tract infection. She was seen by Infectious Disease Service during that hospital ization. She was discharged to [facility] on intravenous meropenem. She reports that murali verdin is still receiving meropenem at [facility]. She reports that she was doing better when she left the hospital. Over the last 1-1/2 weeks, she has been having cough. She reports that she has had sputum yesterday, which was yellowish. She also romeo d a temperature of 101 degrees Fahrenheit at [facility]. She used an inhaler 5 days ago, but otherwise no recent changes to her medications were made. She re ports low appetite. She reports generalized weakness. She denies any nausea or vomiting. She denie s any abdominal pain. She was also found to be hypoxic at [facility]. She reportedly had a chest x-ray done yesterday. The chest x-ray reportedly showed pneumonia. She was therefore sent to the emergency room. REVIEW OF SYSTEMS: All other systems reviewed and found to be negative. PAST MEDICAL HISTORY: Multiple myeloma, Clostridium difficile diarrhea, diabetes mellitus type 2, hy pertension, dyslipidemia, peripheral neuropathy, salmonella bacteremia and Escherichia coli urinary t ract infection. PAST SURGICAL HISTORY: section, left knee surgery, tubal ligation, colonoscopy, EGD and umb ilical hernia repair. ALLERGIES: CODEINE, MORPHINE, SULFA, TRAMADOL and VICODIN. SOCIAL HISTORY: The patient used to live at home. She is at [facility] following recent hospitalization. She denies any tobacco use, alcohol use or recreational drug use. FAMILY HISTORY: No family history of premature coronary artery disease. CODE STATUS: I discussed her code status. She is full code. Her son, Robert is the surrogate radhai serina maker. CURRENT MEDICATIONS: Carvedilol 25 mg 2 times a day, Lasix 40 mg daily, glimepiride 2 mg daily, pant oprazole 40 mg daily, Crestor 10 mg at bedtime, allopurinol 300 mg daily, aspirin 81 mg daily, Integr a Plus 125 mg daily, dexamethasone 40 mg every week, fish oil 1000 mg daily, gabapentin 600 mg 2 time s a day, albuterol nebulizers as needed, diphenoxylate/atropine as needed, vitamin D2 50,000 units 2 times a week, losartan 50 mg daily, Pomalyst 4 mg daily, 3 weeks on, 1 week off, potassium chloride 2 0 mEq daily, promethazine 25 mg as needed, Symbicort inhaler 2 puffs 2 times a day and meropenem 1 gr am IV q.8 hours. PHYSICAL EXAMINATION: GENERAL: Ms. Huggins is awake and alert, not in acute distress. She is morbidly obese, with a BMI of 40.2. VITAL SIGNS: Blood pressure is 124/89, pulse 88, respiratory rate 27 and oxygen saturation 96% on 2 liters of oxygen. T-max in the emergency room was 102.7 degrees Fahrenheit, pulse was 111 when she i nitially presented to the emergency room. EYES: No scleral icterus. No conjunctival pallor. ENT: Moist mucosal membranes. No oropharyngeal erythema or exudates. NECK: Supple, nontender. Trachea is midline. RESPIRATORY: Accessory muscles of breathing are not active. Chest wall movements are symmetric bila terally. LUNGS: Reveals occasional expiratory wheeze. CARDIOVASCULAR: S1 and S2 are heard, regular. Peripheral pulses palpable. No carotid bruit, no per icardial rub. ABDOMEN: Soft, distended, nontender. Bowel sounds heard. No hepatomegaly, no splenomegaly. NEUROLOGIC: Cranial nerves II-XII intact. Deep tendon reflexes are 2+. MUSCULOSKELETAL: Power is 5/5 in all 4 extremities. SKIN: No rashes or subcutaneous nodules. LYMPHATIC: No cervical lymphadenopathy. PSYCHIATRIC: Normal mood, normal affect. The patient is oriented to person, place and time. LABORATORY DATA: Ms. Huggins' labs and investigations were reviewed. I reviewed her electrocardiogram , which shows normal sinus rhythm, no ST changes to suggest an acute coronary syndrome. I also revie wed her chest x-ray, which shows bilateral interstitial infiltrates. She has normal white count, dec reased neutrophil percentage of 38%, normal platelet count, normocytic anemia with hemoglobin 8.0, no rmal creatinine, normal electrolytes, mildly elevated AST of 39, decreased albumin of 3.3, elevated g lobulin of 4.6, otherwise unremarkable liver profile, normal troponin I and normal BNP of 23.9. Urin alysis is positive for protein, trace blood, squamous epithelial cells and hyaline casts. ASSESSMENT AND PLAN: Ms. Huggins is a pleasant 63-year-old lady who was seen at [facility] on 08/04/2018. Her problem list includes: 1. Sepsis: The patient's presentation meets the criteria for sepsis, with fever, tachycardia and ruth spected respiratory source of infection. She will be admitted to the hospital for further management . She is already on meropenem. I will add vancomycin and azithromycin. She could have bronchitis. Alternatively, she could have interstitial pneumonia, given the chest x-ray finding. She does not a ppear to be in heart failure. I will consult ID Service for opinion and help with further management . We will await blood cultures. 2. Diabetes mellitus type 2: Start Accu-Cheks and insulin sliding scale. 3. Hypertension: Resume home medications once clarified, monitor vital signs and titrate antihypert ensives as needed. 4. Dyslipidemia: Continue statin. 5. History of multiple myeloma. Resume home medications once clarified. Many thanks for allowing me to participate in your patient's care. Please feel free to contact me wi th any questions or concerns. LEVEL OF RISK: High. LEVEL OF COMPLEXITY: High.
[2018-08-04] MEDS: Azithromycin 500 MG in Sodium Chloride 0.9% 250 ML 250 ML IVPB SCH (13:54)
[2018-08-04] MEDS: MEROPENEM 1 GM/50 ML 1 GM in Premix Bag 1 BAG IVPB SCH ×2 (14:04→22:43)
[2018-08-04] MEDS: Mometasone/Formoterol 120 PUFF INHALER INH SCH (18:20)
[2018-08-04] MEDS ORDERED: Acetaminophen 325 MG TAB PO SCH (21:00)
[2018-08-04] MEDS: Gabapentin 300 MG CAP PO SCH (21:08)
[2018-08-04] MEDS: diphenhydrAMINE 25 MG CAP PO SCH (21:09)
[2018-08-04] MEDS: Carvedilol 25 MG TAB PO SCH (21:09)
--- NOTE | 2018-08-04 22:18 | CT ---
CT THORAX WITHOUT CONTRAST: 08/04/18 INDICATION: Evaluate for pulmonary infiltrates in an immunosuppressed patient. COMPARISON: CT aortic dissection protocol dated 07/20/18. FINDINGS: There are patchy areas of interstitial and air space opacity that have developed since the most recen t comparison dated 07/20/18 which can be seen with an atypical infectious process. No focal consolida tion is evident. No supa pleural effusions are noted. The visualized upper abdomen is unremarkable f or acute abnormality. There is scattered degenerative and osteoarthritic change. There is a left side d PICC line in place. IMPRESSION: 1. New scattered areas of peripheral interstitial and air space opacity an be seen with atypical infectious processes. No focal consolidation or pleural effusion is evident. 2. Left sided PICC line. POS: [facility]
--- NOTE | 2018-08-05 00:05 | CON ---
DATE OF CONSULTATION: 08/04/2018 REASON FOR CONSULTATION: Possible pneumonitis. HISTORY OF PRESENT ILLNESS: A 63-year-old known to us from prior visits. We had seen in the past couple of times in the hospital with a history of multiple myeloma, type 2 diabetes, hypertension, prior episodes of recurrent salmonella bacteremia, at least three different admissions with salmonella bacteremia which we assume that was secondary to an endovascular and endocardial infection. We could not prove beyond reasonable depth, but in view of the persistent nature of the bacteremia, we felt that was more likely scenario and decided to treat it for a protracted period of time with IV carbapenem. She also has had episodes of C. difficile colitis in the past. The last time she presented with increased urinary symptoms and she had a CT of abdomen and pelvis in April which showed diverticulosis and stable regional lymph nodes in the abdominal area. 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 At this time she presents with a 2 weeks' history of persistent dry cough. She had a fever of 101 reportedly. She had been receiving meropenem in [facility] and the end of therapy is about 2 more weeks. No headaches or maybe some headaches. No visual symptoms, sore throat, odynophagia, dysphagia, no back pain. She has no abdominal pain. She has quite profuse liquid stools. No genitourinary symptoms , no joint symptoms. PAST MEDICAL HISTORY: Multiple myeloma, C. difficile colitis, salmonella gastroenteritis with bacteremia and then persistent salmonella bacteremia felt to be secondary to some endovascular and endocardial infection in which this is a presumptive diagnosis not documented, type 2 diabetes, hypertension, dyslipidemia and neuropathy. PAST SURGICAL HISTORY: , tubal ligation, colonoscopy, umbilical hernia repair. ALLERGIES: CODEINE, SULFA DRUGS, TRAMADOL, VICODIN, MEROPENEM. HOME MEDICATIONS: Included Zyloprim, enoxaparin, fish oil, Neurontin, Amaryl, ondansetron, Protonix, pomalidomide. FAMILY HISTORY: Noncontributory. ALLERGIES: ACETAMINOPHEN, CODEINE, HYDROCODONE, MORPHINE. PHYSICAL EXAMINATION: VITAL SIGNS: Temperature max 98.6, blood pressure 91/55, pulse 95, respirations 20, O2 saturation 92% on 2 liters. SKIN: Shows area of very shallow small ulcerations in the right calf region. No inflammatory changes. Some hyperpigmentation around those ulcers. No lymphadenopathy. HEENT: Ocular movements conjugate. Oral cavity with still quite a few teeth in place. NECK: Supple. No jugular vein distention. LUNGS: With faint inspiratory crackles with a quite symmetric distribution in right and left hemithorax. HEART: S1, S2, regular rate. ABDOMEN: Soft, not distended or tender, maybe moderate distention, but no tenderness. Bowel sounds are increased. No ascites. EXTREMITIES: No joint inflammatory activity noted. No edema. Pulses are 1+ in dorsalis pedis. She moves extremities equally. NEUROLOGIC: Cognitive function appears to be intact. LABORATORY DATA AND IMAGING DATA: White cell count 5.4, hemoglobin 8.0, platelets 209, 38% neutrophils, 6% bands, 24% lymphocytes, 18%, monocytes, 12% eosinophils. Creatinine 0.78 and AST 39. Other liver profile normal. Albumin 3.3. Urinalysis with 0-3 WBCs. Patient has a chest x-ray which showed bilateral infiltrates in interstitial area and prior chest x-ray from mid June did not show any interstitial infiltrates. ASSESSMENT: Multiple myeloma with recurrent salmonella bacteremia, on meropenem intravenously until mid July who now presents with persistent cough and interstitial pulmonary infiltrates, right and left hemithorax and fever. DISCUSSION: Differential diagnosis includes opportunistic processes including pneumocystis jiroveci pneumonia versus CMV reactivation versus noninfectious causes such as for example, pomalidomide or lenalidomide lung toxicity associated with the treatment for multiple myeloma. We will submit pneumocystis workup. CMV, DNA, PCR, histoplasma antigen and cryptococcus antigen. We will check CT of chest without contrast to evaluate interstitial infiltrates better. May have to treat empirically for pneumocystis. MTDD
[2018-08-05] MEDS ORDERED: Acetaminophen 325 MG TAB PO PRN (00:28)
[2018-08-05] MEDS ORDERED: Acetaminophen 325 MG TAB PO SCH (00:30)
[2018-08-05] MEDS ORDERED: Sodium Chloride 0.9% 1,000 ML IV SCH (00:30)
[2018-08-05 04:42] LABS: Anion Gap 9 mmol/L (10-20); BUN (Urea Nitrogen) 6 mg/dL (9.8-20.1); Calc. Creatinine Clearance 135 mL/min (70-130); Carbon Dioxide 25 mmol/L (23-31); Chloride 112 mmol/L (98-107); Estimated GFR-MDRD Greater than 90; Glucose 90 mg/dL (80-115); Sodium 143 mmol/L (136-145)
[2018-08-05 04:46] LABS: Potassium 2.7 mmol/L (3.5-5.1)
[2018-08-05 04:51] LABS: Band 1 % (5-11); Eosinophils 7 % (0-10); Hemoglobin 7.1 g/dL (12.0-16.0); Lymphocytes 43 % (21-51); MDiff Complete? YES; Mean Corpuscular HGB CONC 31.3 g/dL (32.0-36.0); Mean Corpuscular Hemoglobin 30.2 pg (27.0-31.0); Mean Corpuscular Volume 96.3 fL (78.0-98.0); Mean Platelet Volume 9.5 fL (7.4-10.4); Monocytes 17 % (0-10); Neutrophil 32 % (42-75); PLT Morphology Comment Appears Adequate; Platelet Count 164 thou/uL (130-400); RBC Distribution Width 16.8 % (11.5-14.5); Red Blood Cell (RBC) Count 2.35 mill/uL (4.20-5.40); White Blood Cell (WBC) Count 3.5 thou/uL (4.8-10.8)
[2018-08-05] MEDS ORDERED: Magnesium 2 GM/50 ML 2 GM in Premix Bag 1 BAG IVPB PRN (05:51)
[2018-08-05] MEDS: MEROPENEM 1 GM/50 ML 1 GM in Premix Bag 1 BAG IVPB SCH ×3 (06:08→22:16)
[2018-08-05] MEDS: Potassium Chloride 20 MEQ in Premix Bag 1 BAG IVPB SCH ×3 (06:11→11:44)
[2018-08-05] MEDS: Mometasone/Formoterol 120 PUFF INHALER INH SCH ×2 (07:38→19:20)
[2018-08-05] MEDS: Sodium Chloride 0.9% 1,000 ML IV SCH (08:39)
[2018-08-05] MEDS: Fish Oil 1,000 MG CAP PO SCH (08:42)
[2018-08-05] MEDS: Gabapentin 300 MG CAP PO SCH ×3 (08:42→20:52)
[2018-08-05] MEDS: Furosemide 40 MG TAB PO SCH (08:42)
[2018-08-05] MEDS: Enoxaparin Sodium 40 MG/0.4 ML SYRINGE SC SCH (08:42)
[2018-08-05] MEDS: Glimepiride 1 MG TAB PO SCH ×2 (08:42→18:41)
[2018-08-05] MEDS: Rosuvastatin 20 MG TAB PO SCH (08:42)
[2018-08-05] MEDS: Carvedilol 25 MG TAB PO SCH ×2 (08:43→20:52)
[2018-08-05] MEDS: Saccharomyces boulardii 250 MG CAP PO SCH (08:43)
[2018-08-05] MEDS: Potassium Chloride 20 MEQ TAB PO SCH ×3 (08:43→12:14)
[2018-08-05] MEDS: Allopurinol 300 MG TAB PO SCH (08:43)
[2018-08-05] MEDS: Valsartan 80 MG TAB PO SCH (08:44)
[2018-08-05] MEDS: Dexamethasone 4 MG TAB PO SCH (08:44)
[2018-08-05] MEDS ORDERED: IRON FUM PS PO SCH ×2 (09:00)
[2018-08-05] MEDS ORDERED: [UNRECOGNIZED DRUG - OTHER] PO SCH ×2 (09:00)
[2018-08-05] MEDS ORDERED: FOLIC PO SCH ×2 (09:00)
[2018-08-05] MEDS ORDERED: Vancomycin HCl 1.5 GM in Sodium Chloride 0.9% 250 ML 300 ML IVPB SCH (12:00)
--- NOTE | 2018-08-05 12:17 | CON ---
DATE OF CONSULTATION: 08/05/2018 REASON FOR CONSULTATION: Multiple myeloma. HISTORY OF PRESENT ILLNESS: A 63-year-old -[place] female with multiple myeloma, currently on Pomalyst and dexamethasone, presenting to the hospital with hypoxia and cough. The patient was recently admitted to the hospital from 07/16/2018 to 07/22/2018 and was found to have salmonella bacteremia and Escherichia coli urinary tract infection and was discharged to [facility] on intravenous meropenem. She was still receiving this on admission. The patient was doing well at the retirement, but over the last week, she has had worsening cough with yellowish sputum and a temperature of 101 at the retirement. She reports having low appetite and some loose stools as well. Upon arrival to the hospital, she had a chest x-ray that showed some interstitial infiltrates and a CT scan of the chest that showed new scattered areas of peripheral interstitial and airspace opacity without focal consolidation or pleural effusion. The patient was continued on meropenem and also started on vancomycin and azithromycin. The patient denies any current fevers and states that her breathing has slightly improved as long as she is sitting up in bed as she gets short of breath whenever she lies flat. She states she last took her Pomalyst this morning. REVIEW OF SYSTEMS: Ten point review of systems negative except as per HPI. PAST MEDICAL HISTORY: Multiple myeloma, C. diff, type 2 diabetes, hypertension , hyperlipidemia, peripheral neuropathy, history of multiple infections. PAST SURGICAL HISTORY: , left knee surgery, tubal ligation, umbilical hernia repair. ALLERGIES: CODEINE, MORPHINE, SULFA DRUGS, TRAMADOL and VICODIN. SOCIAL HISTORY: Currently resident at [facility] following hospitalization previously of that at home. Denies tobacco, alcohol, or recreational drug use. FAMILY HISTORY: Noncontributory. CURRENT MEDICATIONS: Reviewed. PHYSICAL EXAMINATION: VITAL SIGNS: Temperature 98.5, pulse 94, respirations 20, satting 92% on 5 liters by nasal cannula. Blood pressure 129/68. GENERAL APPEARANCE: The patient lying in bed, eating and in no acute distress. Patient is obese. EYES: No scleral icterus or pallor. NECK: Supple, nontender. Respirations nonlabored. No accessory muscle use. Minimal wheezing. CARDIOVASCULAR: S1, S2, regular rate and rhythm. ABDOMEN: Obese, soft, nondistended, and nontender. NEUROLOGIC: Cranial nerves II-XII grossly intact. MUSCULOSKELETAL: Moves all extremities. SKIN: No rashes. PSYCHIATRIC: Awake, alert and oriented x3. LABORATORY DATA: White blood cells 3.5, hemoglobin 7.1, platelets 164. Potassium 2.7, BUN 6, creatinine 0.66. Glucose is 55 yesterday, currently 96. IMAGING DATA: CT of the chest shows new scattered areas of peripheral interstitial and airspace opacities which can be seen with atypical infectious processes. No focal consolidation or pleural effusion is evident. Left-sided PICC line in place. ASSESSMENT AND PLAN: A 63-year-old -[place] female with multiple myeloma, currently on the Pomalyst and dexamethasone, presenting with hypoxia, fever and worsening cough. The patient last took her Pomalyst this morning. The patient is currently on meropenem for salmonella infection and vancomycin and azithromycin have been added upon admission to the hospital. CT of the chest shows peripheral interstitial opacities which may be indicative of an atypical bacterial pneumonia. Influenza testing is negative. Dr. Pereira from Infectious Disease is on the case and multiple infectious workup labs are currently pending. Agree with broad spectrum antibiotics at this point and follow up cultures and other labs. We would recommend holding patient's Pomalyst at this time given acute illness and infection. The patient's hemoglobin is 7.1, and would recommend transfusion if this drops below 7.0. Thank you for the consult MARY
--- NOTE | 2018-08-05 13:25 | PDOC.PN ---
- Subjective Encounter Start Date: 08/05/18 Encounter Start Time: 07:00 Pt seen for followup re: pneumonia. Denies chest pain, shortness of breath, fevers or chills. Cough+. Had two loose stools. - Objective Resuscitation Status: Resuscitation Status FULL:Full Resuscitation MAR Reviewed: Yes Vital Signs & Weight: Vital Signs (12 hours) Temp Pulse Resp BP Pulse Ox 08/05/18 12:00 98.4 F 91 22 H 117/59 L 92 L 08/05/18 08:00 98.5 F 94 20 129/68 92 L 08/05/18 07:36 91 22 H 88 L 08/05/18 03:48 99.1 F 87 16 114/55 L 93 L Weight Admit Weight 212 lb 8.41 oz Weight 212 lb 8.41 oz I&O: 08/04/18 08/05/18 08/06/18 06:59 06:59 06:59 Intake Total 3840 Balance 3840 Result Diagrams: 08/05/18 04:03 08/05/18 04:03 Additional Labs: Accuchecks 08/05/18 08/05/18 08/04/18 12:57 05:37 20:37 POC Glucose 239 H 96 92 08/04/18 08/04/18 18:01 17:31 POC Glucose 73 55 L* Labs reviewed by me Phys Exam - Physical Examination Morbid obesity HEENT: moist MMs, sclera anicteric, oral pharynx no lesions, 2+ tonsils Neck: no nodes, no JVD, supple, full ROM Lambert crackles Cardiovascular: RRR, no rub S1, S2 Gastrointestinal: soft, non-tender, no distention, positive bowel sounds Neurological: moves all 4 limbs Psychiatric: normal affect, A&O x 3 Dx/Plan (1) Pneumonia Code(s): J18.9 - PNEUMONIA, UNSPECIFIED ORGANISM Status: Acute Comment: empitrically treating gram negative bacterial pneumonia, although pneumocystis jiroveci is a possibility as well. (2) Hypokalemia Code(s): E87.6 - HYPOKALEMIA Status: Acute Comment: replace potassium, recheck (3) Diabetes type 2, controlled Code(s): E11.9 - TYPE 2 DIABETES MELLITUS WITHOUT COMPLICATIONS Status: Chronic Comment: controlled (4) Dyslipidemia Code(s): E78.5 - HYPERLIPIDEMIA, UNSPECIFIED Status: Chronic Comment: continue statin (5) Hypertension Code(s): I10 - ESSENTIAL (PRIMARY) HYPERTENSION Status: Chronic Comment: controlled - Plan continue antibiotics, out of bed/ambulate * . check stool studies to r/o infection. Review of Systems - Review of Systems Constitutional: negative: fever, chills, sweats, weakness, malaise Respiratory: Cough, Dry. negative: Shortness of Breath, Hemoptysis, SOB with Excertion, Pleuritic Pain, Sputum, Wheezing Cardiovascular: negative: chest pain, palpitations, orthopnea, paroxysmal nocturnal dyspnea, edema, light headedness Gastrointestinal: Diarrhea. negative: Nausea, Vomiting, Abdominal Pain, Constipation, Melena, Hematochezia Genitourinary: negative: Dysuria, Frequency, Incontinence, Hematuria, Retention Skin: negative: Rash, Lesions, Toi, Bruising - Medications/Allergies Allergies/Adverse Reactions: Allergies Allergy/AdvReac Type Severity Reaction Status Date / Time codeine Allergy Stomach Verified 08/04/18 13:32 Ache hydrocodone [From Vicodin] Allergy Verified 07/16/18 18:47 morphine Allergy Stomach Verified 08/04/18 13:32 Ache Sulfa (Sulfonamide Allergy Stomach Verified 08/04/18 13:32 Antibiotics) Ache tramadol Allergy Stomach Verified 08/04/18 13:32 Ache Medications: Current Medications Acetaminophen (Tylenol) 650 mg PO Q6H PRN PRN Reason: Headache/Fever or Pain Albuterol/Ipratropium (Duoneb) 3 ml NEB [id number] [facility] Last Admin: 08/05/18 07:36 Dose: 3 ml Albuterol/Ipratropium (Duoneb) 3 ml NEB [id number] PRN PRN Reason: SOB &/or Wheezing Allopurinol (Zyloprim) 300 mg PO DAILY [facility] Last Admin: 08/05/18 08:43 Dose: 300 mg Carvedilol (Coreg) 25 mg PO BID [facility] Last Admin: 08/05/18 08:43 Dose: 25 mg Dexamethasone (Decadron) 40 mg PO We@0900 [facility] Last Admin: 08/05/18 08:44 Dose: 40 mg Dextrose/Water (Dextrose 50%) 25 gm SLOW IVP PRN PRN PRN Reason: Hypoglycemia Diphenhydramine HCl (Benadryl) 25 mg PO HS [facility] Last Admin: 08/04/18 21:09 Dose: 25 mg Enoxaparin Sodium (Lovenox) 40 mg SC 0900 [facility] Last Admin: 08/05/18 08:42 Dose: 40 mg Fish Oil (Fish Oil) 1,000 mg PO DAILY [facility] Last Admin: 08/05/18 08:42 Dose: 1,000 mg Furosemide (Lasix) 40 mg PO DAILY [facility] Last Admin: 08/05/18 08:42 Dose: 40 mg Gabapentin (Neurontin) 600 mg PO TID [facility] Last Admin: 08/05/18 08:42 Dose: 600 mg Glimepiride (Amaryl) 1 mg PO BID-WM [facility] Last Admin: 08/05/18 08:42 Dose: 1 mg Glucagon (Glucagon) 1 mg IM PRN PRN PRN Reason: Hypoglycemia Meropenem 1 gm/ Device 50 mls @ 200 mls/hr IVPB Q8HR [facility] Last Admin: 08/05/18 06:08 Dose: 50 mls Dextrose/Water (D5w) 1,000 mls @ 0 mls/hr IV .Q0M PRN PRN Reason: Hypoglycemia Azithromycin 500 mg/ Sodium (Chloride) 250 mls @ 250 mls/hr IVPB 1400 [facility] Last Admin: 08/04/18 13:54 Dose: 250 mls Sodium Chloride (Normal Saline 0.9%) 1,000 mls @ 75 mls/hr IV .[id number] [facility] Last Admin: 08/05/18 08:39 Dose: 1,000 mls Potassium Chloride 20 meq/ (Device) 100 mls @ 50 mls/hr IVPB Q3HR [facility] Stop: 08/05/18 13:59 Last Admin: 08/05/18 11:44 Dose: 100 mls Vancomycin HCl 1.5 gm/ Sodium (Chloride) 300 mls @ 200 mls/hr IVPB 1200,2359 [facility] Last Admin: 08/05/18 12:06 Dose: 300 mls Insulin Human Lispro (Humalog) 0 units SC .MILD SLIDING SCALE PRN PRN Reason: Mild Correctional Scale Miscellaneous Medication (Pharmacy To Dose) 1 each IVPB PRN PRN PRN Reason: Pharmacy to dose Mometasone Furoate/Formoterol Fumar (Dulera 100 Mcg/5 Mcg Inhaler) 2 puff INH BID-RT [facility] Last Admin: 08/05/18 07:38 Dose: 2 puff Pantoprazole Sodium (Protonix) 40 mg PO DAILY [facility] Last Admin: 08/05/18 08:43 Dose: 40 mg Pomalidomide [ (Pomalyst] 4 Mg)) 1 each PO DAILY [facility] Potassium Chloride (K-Dur) 20 meq PO DAILY [facility] Last Admin: 08/05/18 08:43 Dose: 20 meq Potassium Chloride (K-Dur) 40 meq PO Q4H [facility] Stop: 08/05/18 13:31 Last Admin: 08/05/18 12:14 Dose: Not Given Rosuvastatin Calcium (Crestor) 20 mg PO DAILY [facility] Last Admin: 08/05/18 08:42 Dose: 20 mg Saccharomyces Boulardii (Florastor) 250 mg PO DAILY [facility] Last Admin: 08/05/18 08:43 Dose: 250 mg Senna/Docusate Sodium (Senokot S) 2 tab PO BID PRN PRN Reason: Constipation Valsartan (Diovan) 160 mg PO DAILY [facility] Last Admin: 08/05/18 08:44 Dose: 160 mg
[2018-08-05] MEDS: Azithromycin 500 MG in Sodium Chloride 0.9% 250 ML 250 ML IVPB SCH (15:12)
[2018-08-05] MEDS: Benzonatate 100 MG CAP PO SCH ×2 (15:13→20:52)
[2018-08-05 15:28] LABS: Ref Lab Test Ordered PNEUMOSISTIS PCR
[2018-08-05] MEDS: HumaLOG 300 UNITS/3 ML VIAL SC PRN ×2 (16:25→20:53)
--- NOTE | 2018-08-05 17:54 | PRG ---
DATE OF SERVICE: 08/05/2018 SUBJECTIVE: Still having frequent coughing spells, mostly dry cough, mild dyspnea. Still having liq uid stools intermittently. No chest pain. No abdominal pain. No genitourinary symptoms. OBJECTIVE: VITAL SIGNS: Temperature max 100.8 at midnight yesterday, currently 98.4, blood pressure 117/59, pul se 91, respirations 20, O2 sat 95% on 5 liters nasal cannula. SKIN: No changes in the skin exam. Peripheral IV access. LUNGS: With very faint inspiratory crackles. HEART: S1, S2, regular rate. ABDOMEN: Soft, not distended. LABORATORY DATA: White cell count 3.5, hemoglobin 7.1, platelets 164,000. Potassium 2.7, glucose 23 9. The assays are pending except for a CT scan of chest, which showed scattered areas of peripheral interstitial and airspace opacity. 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 Pn eumocystis, CMV reactivation, fungal mycobacterial pneumonitis and noninfectious causes have been con sidered. We will consult Pulmonary since the patient may require bronchoscopy/bronchoalveolar lavage for diagnostic purposes.
[2018-08-05] MEDS: Vancomycin HCl 25 MG/ML Oral PO SCH ×2 (18:42→20:52)
[2018-08-05] MEDS ORDERED: Sodium Chloride 0.9% 10 ML ONE (20:51)
[2018-08-05] MEDS: diphenhydrAMINE 25 MG CAP PO SCH (20:52)
[2018-08-05 23:23] LABS: Legionella Urinary Ag Negative (Negative); Strep pneumo Urine Ag NEGATIVE (NEGATIVE)
[2018-08-06] MEDS: POMALIDOMIDE 4 MG PO SCH ×2 (03:46→09:29)
[2018-08-06] MEDS: Sodium Chloride 0.9% 1,000 ML IV SCH ×3 (03:52→23:33)
[2018-08-06] MEDS: MEROPENEM 1 GM/50 ML 1 GM in Premix Bag 1 BAG IVPB SCH ×3 (05:10→21:31)
[2018-08-06] MEDS: HumaLOG 300 UNITS/3 ML VIAL SC PRN (05:31)
[2018-08-06] MEDS: Mometasone/Formoterol 120 PUFF INHALER INH SCH ×2 (08:08→18:35)
[2018-08-06] MEDS: Benzonatate 100 MG CAP PO SCH ×3 (09:22→21:25)
[2018-08-06] MEDS: Saccharomyces boulardii 250 MG CAP PO SCH (09:23)
[2018-08-06] MEDS: Furosemide 40 MG TAB PO SCH (09:23)
[2018-08-06] MEDS: Glimepiride 1 MG TAB PO SCH ×2 (09:24→17:43)
[2018-08-06] MEDS: Rosuvastatin 20 MG TAB PO SCH (09:25)
[2018-08-06] MEDS: Fish Oil 1,000 MG CAP PO SCH (09:25)
[2018-08-06] MEDS: Valsartan 80 MG TAB PO SCH (09:27)
[2018-08-06] MEDS: Gabapentin 300 MG CAP PO SCH ×3 (09:27→21:25)
[2018-08-06] MEDS: Allopurinol 300 MG TAB PO SCH (09:27)
[2018-08-06] MEDS: Enoxaparin Sodium 40 MG/0.4 ML SYRINGE SC SCH (09:28)
[2018-08-06] MEDS: Carvedilol 25 MG TAB PO SCH ×2 (09:28→21:25)
[2018-08-06] MEDS: Potassium Chloride 20 MEQ TAB PO SCH (09:29)
[2018-08-06] MEDS: DEXTROSE 5% IVPB SCH (09:30)
[2018-08-06] MEDS: WATER IVPB SCH (09:30)
[2018-08-06] MEDS: PENTAMIDINE IVPB SCH (09:30)
[2018-08-06] MEDS: Vancomycin HCl 25 MG/ML Oral PO SCH ×4 (09:31→21:25)
[2018-08-06] MEDS: Azithromycin 500 MG in Sodium Chloride 0.9% 250 ML 250 ML IVPB SCH (13:27)
[2018-08-06] MEDS ORDERED: Furosemide 40 MG/4 ML VIAL SLOW IVP SCH (14:30)
--- NOTE | 2018-08-06 14:30 | PDOC.PN ---
- Subjective Encounter Start Date: 08/06/18 Encounter Start Time: 14:29 Ms. Huggins was seen today in follow-up of pneumonia. She says that she continues to be short of breath. It is more when she lays flat, and better when she sits up. She also notes a cough as well. - Objective Resuscitation Status: Resuscitation Status FULL:Full Resuscitation MAR Reviewed: Yes Vital Signs & Weight: Vital Signs (12 hours) Temp Pulse Resp BP Pulse Ox 08/06/18 08:00 98.6 F 84 20 130/64 93 L 08/06/18 04:00 98.9 F 85 16 128/61 92 L Weight Admit Weight 212 lb 8.41 oz Weight 212 lb 8.41 oz I&O: 08/05/18 08/06/18 08/07/18 06:59 06:59 06:59 Intake Total 3840 4535 Output Total 350 Balance 3840 4185 Result Diagrams: 08/05/18 04:03 08/05/18 04:03 Additional Labs: Accuchecks 08/06/18 08/06/18 08/05/18 12:24 05:22 20:02 POC Glucose 170 H 226 H 264 H 08/05/18 16:09 POC Glucose 270 H Phys Exam - Physical Examination HEENT: PERRLA, sclera anicteric Respiratory: no wheezing, no rales, no rhonchi + coarse breath sounds bilaterally Cardiovascular: RRR, no significant murmur, no rub Gastrointestinal: soft, non-tender, no distention, positive bowel sounds Musculoskeletal: no edema, edema present Dx/Plan (1) Atypical pneumonia Code(s): J18.9 - PNEUMONIA, UNSPECIFIED ORGANISM Status: Acute (2) Diabetes type 2, controlled Code(s): E11.9 - TYPE 2 DIABETES MELLITUS WITHOUT COMPLICATIONS Status: Chronic Comment: controlled (3) Hypertension Code(s): I10 - ESSENTIAL (PRIMARY) HYPERTENSION Status: Chronic Comment: controlled (4) Morbid obesity with BMI of 40.0-44.9, adult Code(s): E66.01 - MORBID (SEVERE) OBESITY DUE TO EXCESS CALORIES; Z68.41 - BODY MASS INDEX (BMI) 40.0-44.9, ADULT Status: Chronic (5) Multiple myeloma Code(s): C90.00 - MULTIPLE MYELOMA NOT HAVING ACHIEVED REMISSION Status: Chronic - Plan * Atypical Pneumonia- ID input appreciated. He IV antibiotics have been broadened. Pentamadine, and Vancomycin have been added. * Dr. Pereira is recommending a Pulmonary Consult. * Dyspnea and cough- I suspect some of her symptoms are related to volume overload- will give a dose of Lasix IV * Multiple Myeloma- will need to clarify with Oncology if she should continue with Polamlyst * HTN- blood pressure is stable * DM- blood glucose is stable
[2018-08-06] MEDS ORDERED: Lidocaine 4% PF 5 ML AMP NEB SCH (15:30)
--- NOTE | 2018-08-06 18:28 | CON ---
DATE OF CONSULTATION: 08/06/2018 CONSULTING PHYSICIAN: Dr. Pereira. REASON FOR CONSULTATION: Atypical pneumonia. HISTORY OF PRESENT ILLNESS: Ms. Huggins is a 63-year-old female who was hospitalized at this facility on 08/04/2018 with increasing shortness of breath. She has a history of multiple myeloma and over th e last several months has had recurrent salmonella bacteremia -- source not identified. At the time of admission, she has been over at a local long term receiving IV carbapenem for treatment of the salmonella bacteremia. On admission during this day, she had a CT scan of the chest performed showin g bilateral severe interstitial changes, particularly in the upper lobes that were not present on CT done several weeks ago at this facility. Also notable that she had an echocardiogram done several we eks ago which did not show evidence of endocarditis. PAST MEDICAL HISTORY: 1. Multiple myeloma -- patient says she is currently in remission, but also receives monthly chemoth erapy. 2. Clostridium difficile colitis. 3. Salmonella bacteremia. 4. Broken leg. 5. Type 2 diabetes mellitus. 6. Hypertension. 7. Hyperlipidemia. 8. Neuropathy. PAST SURGICAL HISTORY: 1. . 2. Tubal ligation. 3. Colonoscopy. 4. Umbilical hernia repair. 5. Some kind of surgical therapy for a broken leg. ALLERGIES: CODEINE, SULFA DRUGS, TRAMADOL, VICODIN, MEROPENEM. MEDICATIONS PRIOR TO ADMISSION: Zyloprim, enoxaparin, Neurontin, Amaryl, Zofran, Protonix, pomalidom ole and carbapenem. FAMILY MEDICAL HISTORY: Unremarkable. SOCIAL HISTORY: She says she has never smoked, does not consume alcohol. Has no history of sickle c ell in her family. PHYSICAL EXAMINATION: VITAL SIGNS: Temperature 98.6, pulse 100, respirations 16, O2 sat 93% on 3 liters, blood pressure 13 0/64. GENERAL: She appears chronically ill, but in no acute respiratory distress. HEENT: Pupils react. Sclerae icteric. Oropharynx, she has some yeast on her tongue. NECK: Without adenopathy, JVD, or bruits. LUNGS: She has some scattered crackles best heard posteriorly and at the apices. CARDIOVASCULAR: S1, S2 regular without audible murmur. ABDOMEN: Soft, nontender. EXTREMITIES: No clubbing, cyanosis, or edema. LABORATORY DATA: White blood cell count 3.5, hemoglobin 7.1, hematocrit 22.7, platelet count 164. S odium 143, potassium 2.7, chloride 112, CO2 of 25, BUN 6, creatinine 0.7, glucose 90. I reviewed the CT in detail. I reviewed the patient's inpatient medications in detail. ASSESSMENT: Atypical changes on CT of the chest, possibly reflecting atypical infection. You cannot see interstitial lung disease from multiple myeloma; however, the current changes looked to be more infectious in nature due to the acuity that they have developed. Disseminated for salmonella infecti on will be of concern. Also, disseminated fungal infections, pneumocystis, and atypical Mycobacteriu m infections with that to be considered. The patient is currently on pentamidine and broad spectrum IV antibiotics. Being on those would decrease the sensitivity of any bronchoscopy, but not necessari ly contraindicate the procedure. RECOMMENDATIONS: Bronchoscopy with bronchoalveolar lavage and transbronchial biopsies. I discussed the procedure with the patient including potential complications including fever, infection, accident al lung puncture, and reaction to IV conscious sedation. She is agreeable to proceed.
[2018-08-06] MEDS: diphenhydrAMINE 25 MG CAP PO SCH (21:25)
[2018-08-07] MEDS: Carvedilol 25 MG TAB PO SCH ×2 (05:42→21:07)
[2018-08-07] MEDS: MEROPENEM 1 GM/50 ML 1 GM in Premix Bag 1 BAG IVPB SCH ×3 (05:44→21:07)
--- NOTE | 2018-08-07 07:19 | PDOC.PN ---
- Subjective Encounter Start Date: 08/07/18 Encounter Start Time: 07:18 Ms. Huggins was seen today in follow-up of Atypical Pneumonia. She says she is breathing better today, and is less short of breath. She also reports not having any diarrhea. - Objective Resuscitation Status: Resuscitation Status FULL:Full Resuscitation MAR Reviewed: Yes Vital Signs & Weight: Vital Signs (12 hours) Pulse Resp Pulse Ox 08/07/18 00:42 67 16 95 08/06/18 20:00 94 L Weight Admit Weight 212 lb 8.41 oz Weight 212 lb 8.41 oz I&O: 08/06/18 08/07/18 08/08/18 06:59 06:59 06:59 Intake Total 4535 3300 Output Total 350 Balance 4185 3300 Result Diagrams: 08/05/18 04:03 08/05/18 04:03 Additional Labs: Accuchecks 08/07/18 08/06/18 08/06/18 06:00 19:53 15:27 POC Glucose 125 H 150 H 129 H 08/06/18 12:24 POC Glucose 170 H Phys Exam - Physical Examination HEENT: PERRLA Respiratory: wheezing present + occasional wheeze, and rales at the bases Cardiovascular: RRR, no significant murmur, no rub Gastrointestinal: soft, non-tender, no distention, positive bowel sounds Musculoskeletal: no edema Psychiatric: normal affect, A&O x 3 Dx/Plan (1) Atypical pneumonia Code(s): J18.9 - PNEUMONIA, UNSPECIFIED ORGANISM Status: Acute (2) Diabetes type 2, controlled Code(s): E11.9 - TYPE 2 DIABETES MELLITUS WITHOUT COMPLICATIONS Status: Chronic Comment: controlled (3) Hypertension Code(s): I10 - ESSENTIAL (PRIMARY) HYPERTENSION Status: Chronic Comment: controlled (4) Morbid obesity with BMI of 40.0-44.9, adult Code(s): E66.01 - MORBID (SEVERE) OBESITY DUE TO EXCESS CALORIES; Z68.41 - BODY MASS INDEX (BMI) 40.0-44.9, ADULT Status: Chronic (5) Multiple myeloma Code(s): C90.00 - MULTIPLE MYELOMA NOT HAVING ACHIEVED REMISSION Status: Chronic (6) Normochromic anemia Code(s): D64.9 - ANEMIA, UNSPECIFIED Status: Acute - Plan * Atypical Pneumonia- continue broad spectrum antibiotics. Plan is for Bronchoscopy today * Anemia- normocytic hypochromic- will check iron studies, and stool for occult blood. transfuse if necessary * HTN- blood pressure is stable * DM- blood glucose is stable * Multiple Myeloma- stable- will need to clarify treatment Pamolyst.
[2018-08-07] MEDS: Mometasone/Formoterol 120 PUFF INHALER INH SCH ×2 (07:43→19:11)
--- NOTE | 2018-08-07 07:47 | PRG ---
DATE OF SERVICE: 08/07/2018 Ms. Huggins was seen preoperatively before bronchoscopy today. I gave her a chance to answer any quest ions about the procedure. She says she was comfortable with proceeding today. PHYSICAL EXAMINATION: VITAL SIGNS: Temperature 98.5, pulse 60, respiration 16, O2 sat 95% on 3 liters, blood pressure 130/ 68. HEENT: She has a small amount of yeast exudate on her tongue. NECK: Without adenopathy or JVD. LUNGS: She has a few crackles bilaterally. CARDIAC: S1 and S2 regular. ABDOMEN: Soft and obese. EXTREMITIES: No significant edema. LABORATORY: No new labs were done today. Culture results are pending. ASSESSMENT: Atypical pneumonia. PLAN: 1. Bronchoscopy to rule out atypical organisms. 2. Antibiotic management and antifungal management per Dr. Pereira. 3. Multiple myeloma management per Oncology.
[2018-08-07 08:28] LABS: Anion Gap 11 mmol/L (10-20); BUN (Urea Nitrogen) 10 mg/dL (9.8-20.1); Calc. Creatinine Clearance 131 mL/min (70-130); Calcium 8.1 mg/dL (7.8-10.44); Carbon Dioxide 25 mmol/L (23-31); Chloride 113 mmol/L (98-107); Estimated GFR-MDRD Greater than 90; Glucose 102 mg/dL (80-115); Iron 85 ug/dL (50-170); Iron Binding Capacity, Total 184 mcg/dL (265-497); Sodium 146 mmol/L (136-145)
[2018-08-07 08:33] LABS: Potassium 2.9 mmol/L (3.5-5.1)
[2018-08-07] MEDS ORDERED: Potassium Chloride 20 MEQ in Premix Bag 1 BAG IVPB SCH (09:00)
[2018-08-07] MEDS: Vancomycin HCl 25 MG/ML Oral PO SCH ×4 (09:11→21:11)
[2018-08-07] MEDS: DEXTROSE 5% IVPB SCH (09:12)
[2018-08-07] MEDS: WATER IVPB SCH (09:12)
[2018-08-07] MEDS: PENTAMIDINE IVPB SCH (09:12)
[2018-08-07] MEDS ORDERED: Fentanyl 100 MCG/2 ML VIAL ONE (09:16)
[2018-08-07] MEDS: Enoxaparin Sodium 40 MG/0.4 ML SYRINGE SC SCH (09:21)
[2018-08-07] MEDS: Glimepiride 1 MG TAB PO SCH ×2 (09:21→16:32)
[2018-08-07] MEDS: Benzonatate 100 MG CAP PO SCH ×3 (09:21→21:07)
[2018-08-07] MEDS: Fish Oil 1,000 MG CAP PO SCH ×2 (09:22→12:29)
[2018-08-07] MEDS: Gabapentin 300 MG CAP PO SCH ×3 (09:22→21:07)
[2018-08-07] MEDS ORDERED: SUGAMMADEX SODIUM 500 MG/5 ML VIAL ONE (10:19)
--- NOTE | 2018-08-07 11:46 | OP ---
DATE OF PROCEDURE: 08/07/2018 SURGEON: Dr. Ventura Galvez PROCEDURE: Bronchoscopy with bronchoalveolar lavage and transbronchial biopsies. PREOPERATIVE DIAGNOSES: Immunocompromised with pneumonia. POSTOPERATIVE DIAGNOSIS: Immunocompromised with pneumonia. ANESTHESIA: General endotracheal. DESCRIPTION OF PROCEDURE: Informed consent was obtained from the patient. She understood the risks involved and agreed to proceed. The patient was intubated by the Anesthesia team and placed on mechanical ventilation. An adaptor wa s placed on the end of her endotracheal tube. A Pentax bronchoscope was placed through the adaptor i nto the trachea. The trachea was normal in appearance. The left mainstem bronchus, left upper lobe, left lower lobe, right upper lobe, right middle, and right lower lobe were all normal in appearance, aside from some scant mucoid secretions. The mucosa looked normal. In the right middle lobe a bron choalveolar lavage was performed with 120 mL normal saline. In the right middle lobe a series of fiv e transbronchial biopsies was performed. The patient tolerated the procedure well.
[2018-08-07] MEDS: Allopurinol 300 MG TAB PO SCH (12:27)
[2018-08-07] MEDS: POMALIDOMIDE 4 MG PO SCH (12:28)
[2018-08-07] MEDS: Furosemide 40 MG TAB PO SCH (12:28)
[2018-08-07] MEDS: Saccharomyces boulardii 250 MG CAP PO SCH (12:29)
[2018-08-07] MEDS: Valsartan 80 MG TAB PO SCH (12:30)
[2018-08-07] MEDS: Rosuvastatin 20 MG TAB PO SCH (12:33)
[2018-08-07] MEDS: Potassium Chloride 20 MEQ TAB PO SCH (12:34)
[2018-08-07] MEDS ORDERED: Lidocaine 1% PF 5 ML VIAL ONE (12:59)
[2018-08-07] MEDS ORDERED: PROPOFOL 200 MG/20 ML VIAL ONE (12:59)
[2018-08-07] MEDS: Azithromycin 500 MG in Sodium Chloride 0.9% 250 ML 250 ML IVPB SCH (14:52)
--- NOTE | 2018-08-07 16:35 | PRG ---
DATE OF SERVICE: 08/07/2018 SUBJECTIVE: Ms. Huggins is feeling better, less cough. Dr. Galvez evaluated the patient and did a br onchoscopy. Waiting on results of pathology. No chest pain. Mild dyspnea. No abdominal pain. Nadiya rrhea has resolved. OBJECTIVE: VITALS: Temperature is normal. BP 115/58, pulse 86, respirations 18, 95 O2 sat. GENERAL: Appears in no distress, oriented. HEENT: Periorbital edema. Pupils are equal. Oral cavity normal. NECK: Supple. LUNGS: With improvement in inspiratory crackles. ABDOMEN: Soft. LABORATORY DATA: White cell count 3.5, creatinine 0.68. The nasopharyngeal swab showed negative for viral pathogens. Pathology pending from the BAL and lung biopsy. ASSESSMENT AND DISCUSSION: Multiple myeloma, recurrent salmonella bacteremia in the past, on meropen em and now interstitial pneumonitis with some confluency. The patient is currently on broad-spectrum coverage including for pneumocystis and bacterial pathogens. Waiting on the BAL performed and will go from there according to results. She seems to be improving.
[2018-08-07] MEDS: diphenhydrAMINE 25 MG CAP PO SCH (21:07)
[2018-08-07] MEDS: Sodium Chloride 0.9% 1,000 ML IV SCH (21:18)
[2018-08-08] MEDS: MEROPENEM 1 GM/50 ML 1 GM in Premix Bag 1 BAG IVPB SCH ×3 (05:12→22:44)
[2018-08-08 05:35] LABS: Band 4 % (5-11); Eosinophils 30 % (0-10); Lymphocytes 22 % (21-51); MDiff Complete? YES; Mean Corpuscular HGB CONC 31.2 g/dL (32.0-36.0); Mean Corpuscular Hemoglobin 30.4 pg (27.0-31.0); Mean Corpuscular Volume 97.4 fL (78.0-98.0); Mean Platelet Volume 9.5 fL (7.4-10.4); Monocytes 18 % (0-10); Neutrophil 26 % (42-75); Nucleated RBC 3 % (0); Platelet Count 161 thou/uL (130-400); Red Blood Cell (RBC) Count 2.29 mill/uL (4.20-5.40); White Blood Cell (WBC) Count 2.9 thou/uL (4.8-10.8)
[2018-08-08 05:39] LABS: Anion Gap 5 mmol/L (10-20); BUN (Urea Nitrogen) 10 mg/dL (9.8-20.1); Calc. Creatinine Clearance 132 mL/min (70-130); Calcium 8.5 mg/dL (7.8-10.44); Carbon Dioxide 31 mmol/L (23-31); Chloride 112 mmol/L (98-107); Estimated GFR-MDRD Greater than 90; Glucose 80 mg/dL (80-115); Potassium 3.1 mmol/L (3.5-5.1); Sodium 145 mmol/L (136-145)
[2018-08-08] MEDS: Mometasone/Formoterol 120 PUFF INHALER INH SCH ×2 (07:56→19:27)
[2018-08-08] MEDS: Fish Oil 1,000 MG CAP PO SCH (08:39)
[2018-08-08] MEDS: Allopurinol 300 MG TAB PO SCH (08:39)
[2018-08-08] MEDS: Potassium Chloride 20 MEQ TAB PO SCH ×2 (08:39→12:25)
[2018-08-08] MEDS: Gabapentin 300 MG CAP PO SCH ×3 (08:39→20:43)
[2018-08-08] MEDS: Valsartan 80 MG TAB PO SCH (08:40)
[2018-08-08] MEDS: Furosemide 40 MG TAB PO SCH (08:40)
[2018-08-08] MEDS: Benzonatate 100 MG CAP PO SCH ×3 (08:40→20:43)
[2018-08-08] MEDS: Carvedilol 25 MG TAB PO SCH ×2 (08:40→20:44)
[2018-08-08] MEDS: Rosuvastatin 20 MG TAB PO SCH (08:41)
[2018-08-08] MEDS: Glimepiride 1 MG TAB PO SCH ×2 (08:41→17:20)
[2018-08-08] MEDS: Saccharomyces boulardii 250 MG CAP PO SCH (08:41)
[2018-08-08] MEDS: POMALIDOMIDE 4 MG PO SCH (08:42)
[2018-08-08] MEDS: Enoxaparin Sodium 40 MG/0.4 ML SYRINGE SC SCH (08:48)
[2018-08-08] MEDS: Vancomycin HCl 25 MG/ML Oral PO SCH ×4 (10:20→20:44)
[2018-08-08] MEDS: DEXTROSE 5% IVPB SCH (11:45)
[2018-08-08] MEDS: PENTAMIDINE IVPB SCH (11:45)
[2018-08-08] MEDS: WATER IVPB SCH (11:45)
[2018-08-08] MEDS ORDERED: Potassium Chloride 20 MEQ TAB PO SCH ×2 (12:00→15:45)
[2018-08-08 13:12] LABS: CMV DNA-PCR Test Negative (Negative)
[2018-08-08] MEDS: Azithromycin 500 MG in Sodium Chloride 0.9% 250 ML 250 ML IVPB SCH (15:01)
--- NOTE | 2018-08-08 15:27 | PDOC.PN ---
- Subjective Encounter Start Date: 08/08/18 Encounter Start Time: 15:26 Ms. Huggins was seen today in follow-up of Pneumonia. and C. diff diarrhea. she does not have any complaints this morning. She denies chest pain or shortness of breath. She denies any cough or congestion. - Objective Resuscitation Status: Resuscitation Status FULL:Full Resuscitation MAR Reviewed: Yes Vital Signs & Weight: Vital Signs (12 hours) Temp Pulse Resp BP Pulse Ox 08/08/18 15:00 77 16 08/08/18 12:00 95 08/08/18 11:54 97.7 F 77 16 113/60 97 08/08/18 11:45 71 20 08/08/18 11:03 97.5 F L 71 18 126/72 98 08/08/18 08:00 97 08/08/18 07:56 71 16 Weight Admit Weight 212 lb 8.41 oz Weight 212 lb 8.41 oz I&O: 08/07/18 08/08/18 08/09/18 06:59 06:59 06:59 Intake Total 3300 2560 Balance 3300 2560 Result Diagrams: 08/08/18 04:50 08/08/18 04:50 Additional Labs: Accuchecks 08/07/18 08/07/18 21:22 16:27 POC Glucose 100 126 H Phys Exam - Physical Examination HEENT: PERRLA Respiratory: no wheezing + fine rales at the bases Cardiovascular: RRR, no significant murmur, no rub Gastrointestinal: soft, non-tender, no distention, positive bowel sounds Musculoskeletal: no edema Dx/Plan (1) Atypical pneumonia Code(s): J18.9 - PNEUMONIA, UNSPECIFIED ORGANISM Status: Acute (2) Normochromic anemia Code(s): D64.9 - ANEMIA, UNSPECIFIED Status: Acute (3) Clostridium difficile diarrhea Code(s): A04.72 - ENTEROCOLITIS D/T CLOSTRIDIUM DIFFICILE, NOT SPCF RECUR Status: Acute (4) Diabetes type 2, controlled Code(s): E11.9 - TYPE 2 DIABETES MELLITUS WITHOUT COMPLICATIONS Status: Chronic Comment: controlled (5) Hypertension Code(s): I10 - ESSENTIAL (PRIMARY) HYPERTENSION Status: Chronic Comment: controlled (6) Morbid obesity with BMI of 40.0-44.9, adult Code(s): E66.01 - MORBID (SEVERE) OBESITY DUE TO EXCESS CALORIES; Z68.41 - BODY MASS INDEX (BMI) 40.0-44.9, ADULT Status: Chronic (7) Multiple myeloma Code(s): C90.00 - MULTIPLE MYELOMA NOT HAVING ACHIEVED REMISSION Status: Chronic - Plan * Pneumonia- Awaiting the results from the BAL. Continue broad spectrum antibiotics * C. Diff Diarrhea- continue oral Vancomycin. * Anemia- iron studies noted- likely due to myeloma, and chronic disease- occult blood is negative- will transfuse one unit * HTN- blood pressure is stable * Hypokalemia- continue to replace potassium
--- NOTE | 2018-08-08 16:43 | PRG ---
DATE OF SERVICE: 08/08/2018 SERVICE: Pulmonary Medicine. INTERVAL HISTORY: The patient is doing outstanding from a respiratory standpoint and breathing comfortably. There has been no interval change to her condition. She is coughing. She is bringing up sputum, but swallows it down, so does not remember what looks like. Otherwise, she has no specific complaints. PHYSICAL EXAMINATION: VITAL SIGNS: Afebrile, pulse 77, blood pressure 113/60, respirations 16, saturation 97% on 3.5 liters nasal cannula. GENERAL: The patient is awake, alert, no apparent distress. LUNGS: Excellent air entry. Dependent crackles are present. There is no prolonged expiratory phase or wheezing appreciated. Rhonchi clear with cough. HEART: Normal rate, regular. ABDOMEN: Soft, nontender, nondistended. Bowel sounds are positive. MUSCULOSKELETAL: No cyanosis or clubbing. There is trace pitting in the bilateral lower extremities. NEUROLOGIC: Grossly nonfocal. LABORATORY DATA: WBC 2.9, hemoglobin 7.0, platelets 161,000. Basic metabolic profile is essentially unremarkable except for potassium of 3.1. Urinalysis is unremarkable and is negative for white blood cells. Serologies including legionella, Streptococcus, beta D glucan, histoplasma and CMP is unremarkable. AFB smear and culture, and bronchial washings are negative to date. Respiratory virus panel is unremarkable. C. diff antigen and toxin is negative and multiple blood cultures as well as cryptococcal antigens are unremarkable. ASSESSMENT: 1. Acute hypoxic respiratory failure. 2. Multiple myeloma with low white blood cell count and anemia. 3. Eosinophilia. 4. Abnormal CT of the chest, characterized by interstitial thickening, ground glass opacifications and scattered consolidating lesions, and miniscule bilateral pleural effusions. DISCUSSION AND PLAN: I will replace the potassium and check magnesium with tomorrow morning's laboratories. We will follow the eosinophil level. This may be an artifact of her multiple myeloma and her bone marrow making an attempt to churn out as much as many white blood cells as possible. That being said, if it continues to trend up, we will need to review her medication list, and consider empiric steroids. MTDD
[2018-08-08] MEDS: diphenhydrAMINE 25 MG CAP PO SCH (20:43)
[2018-08-09] MEDS: MEROPENEM 1 GM/50 ML 1 GM in Premix Bag 1 BAG IVPB SCH ×3 (05:29→21:24)
[2018-08-09] MEDS: Sodium Chloride 0.9% 1,000 ML IV SCH (05:42)
[2018-08-09 06:10] LABS: Anion Gap 7 mmol/L (10-20); BUN (Urea Nitrogen) 8 mg/dL (9.8-20.1); Calc. Creatinine Clearance 146 mL/min (70-130); Calcium 8.8 mg/dL (7.8-10.44); Carbon Dioxide 32 mmol/L (23-31); Chloride 109 mmol/L (98-107); Estimated GFR-MDRD Greater than 90; Glucose 63 mg/dL (80-115); Potassium 3.2 mmol/L (3.5-5.1); Sodium 145 mmol/L (136-145)
[2018-08-09 06:34] LABS: Band 6 % (5-11); Eosinophils 17 % (0-10); Hemoglobin 8.5 g/dL (12.0-16.0); Lymphocytes 28 % (21-51); MDiff Complete? YES; Mean Corpuscular HGB CONC 30.6 g/dL (32.0-36.0); Mean Corpuscular Hemoglobin 29.2 pg (27.0-31.0); Mean Corpuscular Volume 95.5 fL (78.0-98.0); Mean Platelet Volume 9.7 fL (7.4-10.4); Monocytes 28 % (0-10); Neutrophil 21 % (42-75); Nucleated RBC 4 % (0); Platelet Count 167 thou/uL (130-400); RBC Distribution Width 16.9 % (11.5-14.5); Red Blood Cell (RBC) Count 2.92 mill/uL (4.20-5.40); White Blood Cell (WBC) Count 2.3 thou/uL (4.8-10.8)
[2018-08-09] MEDS: Mometasone/Formoterol 120 PUFF INHALER INH SCH ×2 (07:12→19:02)
[2018-08-09] MEDS: Furosemide 40 MG TAB PO SCH (08:55)
[2018-08-09] MEDS: Fish Oil 1,000 MG CAP PO SCH (08:55)
[2018-08-09] MEDS: Glimepiride 1 MG TAB PO SCH ×2 (08:55→17:09)
[2018-08-09] MEDS: Saccharomyces boulardii 250 MG CAP PO SCH (08:56)
[2018-08-09] MEDS: Allopurinol 300 MG TAB PO SCH (08:56)
[2018-08-09] MEDS: Valsartan 80 MG TAB PO SCH (08:56)
[2018-08-09] MEDS: Carvedilol 25 MG TAB PO SCH ×2 (08:56→21:21)
[2018-08-09] MEDS: Potassium Chloride 20 MEQ TAB PO SCH (08:56)
[2018-08-09] MEDS: Gabapentin 300 MG CAP PO SCH ×3 (08:56→21:21)
[2018-08-09] MEDS: Benzonatate 100 MG CAP PO SCH ×3 (08:57→21:21)
[2018-08-09] MEDS: Rosuvastatin 20 MG TAB PO SCH (08:57)
[2018-08-09] MEDS: Vancomycin HCl 25 MG/ML Oral PO SCH ×4 (08:59→21:22)
[2018-08-09] MEDS: Enoxaparin Sodium 40 MG/0.4 ML SYRINGE SC SCH (09:00)
[2018-08-09] MEDS: POMALIDOMIDE 4 MG PO SCH (09:08)
[2018-08-09] MEDS: WATER IVPB SCH (10:10)
[2018-08-09] MEDS: PENTAMIDINE IVPB SCH (10:10)
[2018-08-09] MEDS: DEXTROSE 5% IVPB SCH (10:10)
[2018-08-09] MEDS: Azithromycin 500 MG in Sodium Chloride 0.9% 250 ML 250 ML IVPB SCH (13:05)
--- NOTE | 2018-08-09 14:33 | PDOC.PN ---
- Subjective Encounter Start Date: 08/09/18 Encounter Start Time: 14:31 Ms. Huggins was seen today in follow-up of Pneumonia. She does not have any complaints this afternoon. - Objective Resuscitation Status: Resuscitation Status FULL:Full Resuscitation MAR Reviewed: Yes Vital Signs & Weight: Vital Signs (12 hours) Temp Pulse Pulse Resp BP BP Pulse Ox 08/09/18 10:10 88 20 08/09/18 08:00 98.8 F 73 20 133/63 94 L 08/09/18 07:50 94 L 08/09/18 07:10 79 16 97 08/09/18 03:15 97.7 F 75 16 140/78 Weight Admit Weight 212 lb 8.41 oz Weight 212 lb 8.41 oz I&O: 08/08/18 08/09/18 08/10/18 06:59 06:59 06:59 Intake Total 2560 350 Output Total 400 Balance 2560 -50 Result Diagrams: 08/09/18 05:37 08/09/18 05:37 Additional Labs: Accuchecks 08/09/18 08/08/18 08/08/18 10:27 20:43 16:37 POC Glucose 86 84 81 Phys Exam - Physical Examination HEENT: PERRLA Respiratory: no wheezing, no rales, no rhonchi, clear to auscultation bilateral Cardiovascular: RRR, no significant murmur, no rub no gallop Gastrointestinal: soft, non-tender, no distention, positive bowel sounds Musculoskeletal: no edema Dx/Plan (1) Atypical pneumonia Code(s): J18.9 - PNEUMONIA, UNSPECIFIED ORGANISM Status: Acute (2) Normochromic anemia Code(s): D64.9 - ANEMIA, UNSPECIFIED Status: Acute (3) Clostridium difficile diarrhea Code(s): A04.72 - ENTEROCOLITIS D/T CLOSTRIDIUM DIFFICILE, NOT SPCF RECUR Status: Acute (4) Diabetes type 2, controlled Code(s): E11.9 - TYPE 2 DIABETES MELLITUS WITHOUT COMPLICATIONS Status: Chronic Comment: controlled (5) Hypertension Code(s): I10 - ESSENTIAL (PRIMARY) HYPERTENSION Status: Chronic Comment: controlled (6) Morbid obesity with BMI of 40.0-44.9, adult Code(s): E66.01 - MORBID (SEVERE) OBESITY DUE TO EXCESS CALORIES; Z68.41 - BODY MASS INDEX (BMI) 40.0-44.9, ADULT Status: Chronic (7) Multiple myeloma Code(s): C90.00 - MULTIPLE MYELOMA NOT HAVING ACHIEVED REMISSION Status: Chronic - Plan * Pneumonia- in an immuno-compromised host ( Multiple Myeloma and the medication Polmalyst- continue Azithromycin, Meropenem, and Pentamidine. * Anemia- improved after transfusion * HTN- Blood pressure is stable * DM- blood glucose is stable * C. Diff diarrhea- continue oral Vancomycin * Multiple Myeloma- stable
[2018-08-09] MEDS: Micafungin 100 MG in Sodium Chloride 0.9% 100 ML IVPB SCH (17:43)
[2018-08-09] MEDS ORDERED: Potassium Chloride 20 MEQ TAB PO SCH (18:00)
--- NOTE | 2018-08-09 18:09 | PRG ---
DATE OF SERVICE: 08/09/2018 SERVICE: Pulmonary Medicine. INTERVAL HISTORY: The patient is doing really well from a respiratory standpoint. She is not coughing. She is not bringing up any sputum. She denies any fevers or chills. Otherwise, there has been no interval change to her condition. PHYSICAL EXAMINATION: VITAL SIGNS: Afebrile, pulse 73, blood pressure 133/63, respirations 20, saturation 94% on 2 liters nasal cannula. GENERAL: The patient is awake, alert, in no apparent distress. LUNGS: Excellent air entry. There are some dependent crackles present. Rhonchi clear with cough. No prolonged expiratory phase or wheezing is appreciated. HEART: Normal rate, regular. ABDOMEN: Soft, nontender, nondistended. Bowel sounds are positive. MUSCULOSKELETAL: No cyanosis or clubbing. No pitting in the bilateral lower extremities. NEUROLOGIC: Grossly nonfocal. LABORATORY DATA: WBC 2.3, hemoglobin 8.5, platelets 167,000. Potassium 3.2. Basic metabolic profile is otherwise unremarkable. Magnesium is normal. Urinalysis is unremarkable. Lashawn albicans is growing out of the bronchial washing. ASSESSMENT: 1. Multiple myeloma with low white blood cell count and anemia. 2. Abnormal CT of the chest characterized by interstitial thickening, ground glass opacifications, scattered consolidating changes, and miniscule bilateral pleural effusions. 3. Elevated eosinophil percentage. DISCUSSION AND PLAN: We will add micafungin to the patient's medications. Pulmonary Critical Care will continue to follow along for the time being. We keep an eye on the eosinophil count and if starts to increase dramatically, investigation may be warranted. Pathology is currently pending. My suspicion is the eosinophil count is elevated because the bone marrow is making every attempt at pushing whatever cells it can out. We will continue our efforts at replacing her potassium. BARBERD
[2018-08-09] MEDS: diphenhydrAMINE 25 MG CAP PO SCH (21:22)
[2018-08-10] MEDS: Sodium Chloride 0.9% 1,000 ML IV SCH ×2 (04:34→09:03)
[2018-08-10] MEDS: MEROPENEM 1 GM/50 ML 1 GM in Premix Bag 1 BAG IVPB SCH ×3 (05:55→22:16)
[2018-08-10] MEDS: Mometasone/Formoterol 120 PUFF INHALER INH SCH ×2 (06:44→18:53)
[2018-08-10] MEDS: Valsartan 80 MG TAB PO SCH (09:00)
[2018-08-10] MEDS: Fish Oil 1,000 MG CAP PO SCH (09:00)
[2018-08-10] MEDS: Enoxaparin Sodium 40 MG/0.4 ML SYRINGE SC SCH (09:00)
[2018-08-10] MEDS: Carvedilol 25 MG TAB PO SCH ×2 (09:00→21:07)
[2018-08-10] MEDS: Allopurinol 300 MG TAB PO SCH (09:00)
[2018-08-10] MEDS: Gabapentin 300 MG CAP PO SCH ×3 (09:01→21:06)
[2018-08-10] MEDS: Rosuvastatin 20 MG TAB PO SCH (09:01)
[2018-08-10] MEDS: Glimepiride 1 MG TAB PO SCH ×2 (09:01→18:21)
[2018-08-10] MEDS: Furosemide 40 MG TAB PO SCH (09:01)
[2018-08-10] MEDS: Saccharomyces boulardii 250 MG CAP PO SCH (09:01)
[2018-08-10] MEDS: Potassium Chloride 20 MEQ TAB PO SCH (09:01)
[2018-08-10] MEDS: WATER IVPB SCH (09:07)
[2018-08-10] MEDS: PENTAMIDINE IVPB SCH (09:07)
[2018-08-10] MEDS: DEXTROSE 5% IVPB SCH (09:07)
[2018-08-10] MEDS: Vancomycin HCl 25 MG/ML Oral PO SCH ×4 (09:28→21:07)
[2018-08-10] MEDS: Benzonatate 100 MG CAP PO SCH ×3 (09:28→21:07)
--- NOTE | 2018-08-10 09:43 | PRG ---
DATE OF SERVICE: 08/10/2018 SUBJECTIVE: She is doing well, had no acute complaints. PHYSICAL EXAMINATION: VITAL SIGNS: Temperature is 99.2, pulse 73, respirations 18, O2 sat 93% on 2 liters, blood pressure 131/70. HEENT: Unremarkable. NECK: No JVD. LUNGS: No crackles or wheezes. CARDIAC: S1 and S2 regular. ABDOMEN: Soft. EXTREMITIES: No edema. LABORATORY DATA: Micro shows some rare Lashawn that grew out from the lung. Nothing else has grown at this time, but the bronch was done with the patient on antibiotics. The biopsy results are pendin g. So far, special stains have not shown any AFB positive organisms. ASSESSMENT: Multiple myeloma -- immunocompromised patient. PLAN: Continue the antibiotics per Dr. Pereira. Await results from biopsy. Would suggest discontinui ng Decadron as that medicine is not felt to be needed.
--- NOTE | 2018-08-10 13:03 | PDOC.PN ---
- Subjective Encounter Start Date: 08/10/18 Encounter Start Time: 10:05 -: old records requested/rev Pt seen and examined, chart reviewed in its entirety, this is my first visit with this patient follow up for: No F/C, no N/V/D/C, no CP or SOB All systems reviewed and neg except as above - Objective Resuscitation Status: Resuscitation Status FULL:Full Resuscitation MAR Reviewed: Yes Vital Signs & Weight: Vital Signs (12 hours) Temp Pulse Resp BP Pulse Ox 08/10/18 11:38 98.6 F 77 20 109/57 L 94 L 08/10/18 09:07 73 18 08/10/18 08:00 99.2 F 73 18 131/70 93 L 08/10/18 06:48 94 L 08/10/18 06:44 81 20 94 L 08/10/18 06:40 81 20 93 L 08/10/18 01:07 75 18 96 Weight Admit Weight 212 lb 8.41 oz Weight 212 lb 8.41 oz I&O: 08/09/18 08/10/18 08/11/18 06:59 06:59 06:59 Intake Total 350 1950 480 Output Total 400 Balance -50 1950 480 Result Diagrams: 08/09/18 05:37 08/09/18 05:37 Additional Labs: Accuchecks 08/10/18 08/10/18 08/10/18 11:16 06:22 05:57 POC Glucose 161 H 92 51 L* 08/09/18 08/09/18 21:22 15:55 POC Glucose 69 L 83 Radiology Reviewed by me: Yes EKG Reviewed by me: Yes Phys Exam - Physical Examination Constitutional: NAD HEENT: PERRLA, moist MMs, sclera anicteric, oral pharynx no lesions Neck: no nodes, no JVD, supple, full ROM Respiratory: no wheezing, no rales, no rhonchi, clear to auscultation bilateral Cardiovascular: RRR, no significant murmur, no rub Gastrointestinal: soft, non-tender, no distention, positive bowel sounds Musculoskeletal: no edema Neurological: non-focal, normal sensation, moves all 4 limbs Lymphatic: no nodes Psychiatric: normal affect, A&O x 3 Skin: no rash, normal turgor, cap refill <2 seconds Dx/Plan (1) Atypical pneumonia Code(s): J18.9 - PNEUMONIA, UNSPECIFIED ORGANISM Status: Acute (2) Clostridium difficile diarrhea Code(s): A04.72 - ENTEROCOLITIS D/T CLOSTRIDIUM DIFFICILE, NOT SPCF RECUR Status: Acute (3) Normochromic anemia Code(s): D64.9 - ANEMIA, UNSPECIFIED Status: Acute (4) Pneumonia Code(s): J18.9 - PNEUMONIA, UNSPECIFIED ORGANISM Status: Acute Comment: empitrically treating gram negative bacterial pneumonia, although pneumocystis jiroveci is a possibility as well. (5) Acute kidney injury Code(s): N17.9 - ACUTE KIDNEY FAILURE, UNSPECIFIED Status: Acute (6) Dyslipidemia Code(s): E78.5 - HYPERLIPIDEMIA, UNSPECIFIED Status: Chronic Comment: continue statin (7) Hypertension Code(s): I10 - ESSENTIAL (PRIMARY) HYPERTENSION Status: Chronic Comment: controlled (8) Morbid obesity with BMI of 40.0-44.9, adult Code(s): E66.01 - MORBID (SEVERE) OBESITY DUE TO EXCESS CALORIES; Z68.41 - BODY MASS INDEX (BMI) 40.0-44.9, ADULT Status: Chronic (9) Multiple myeloma Code(s): C90.00 - MULTIPLE MYELOMA NOT HAVING ACHIEVED REMISSION Status: Chronic - Plan * .
[2018-08-10] MEDS: Azithromycin 500 MG in Sodium Chloride 0.9% 250 ML 250 ML IVPB SCH (13:50)
[2018-08-10] MEDS: POMALIDOMIDE 4 MG PO SCH (15:08)
--- NOTE | 2018-08-10 16:43 | PRG ---
DATE OF SERVICE: 08/10/2018 SUBJECTIVE: Feeling much better. Cough is pretty much gone. No more diarrhea, no respiratory sympt oms, no abdominal pain. PHYSICAL EXAMINATION: VITAL SIGNS: T-max 99.2, blood pressure 109/57, pulse 74, respirations 20, O2 sat 92%. GENERAL APPEARANCE: Ms. Huggins appears in no distress, eating her lunch. Does not have a lot of appe tite, probably from all of the medications that she was receiving for treatment of this infection. LUNGS: With resolution of the previously noted inspiratory crackles. CARDIOVASCULAR: S1, S2, regular rate. ABDOMEN: Soft and not distended. NEUROLOGIC: Unchanged. LABORATORY DATA: White cell count 2.3, hemoglobin 8.5, platelets 167,000. Chemistry; creatinine 0.6 1, sodium 145, potassium 3.2. Fungitell assay was 46, which is within normal limits. Histoplasma an tigen negative. All the other assays negative. The pathology report is pending as well as the BAL. ASSESSMENT AND DISCUSSION: Multiple myeloma, recurrent salmonella bacteremia in the past on meropene m, then development of interstitial pneumonitis areas of confluency. The patient is on broad spectru m therapy including for pneumocystis with marked improvement in symptoms, resolution of the cough and improvement of the clinical findings. Waiting on BAL most likely will be able to discontinue pentam idine since her Fungitell assay was negative. After that possibly transition to oral quinolone for d ischarge planning or doxycycline.
[2018-08-10] MEDS: Micafungin 100 MG in Sodium Chloride 0.9% 100 ML IVPB SCH (18:21)
[2018-08-10] MEDS: diphenhydrAMINE 25 MG CAP PO SCH (21:06)
[2018-08-10] MEDS: Promethazine HCl 25 MG/ML VIAL SLOW IVP PRN (21:07)
[2018-08-11] MEDS: MEROPENEM 1 GM/50 ML 1 GM in Premix Bag 1 BAG IVPB SCH (05:44)
[2018-08-11] MEDS: Mometasone/Formoterol 120 PUFF INHALER INH SCH ×2 (07:36→19:03)
--- NOTE | 2018-08-11 08:08 | PRG ---
DATE OF SERVICE: 08/11/2018 The patient is feeling better. She has no acute complaints today. She wonders when she can leave [facility]. PHYSICAL EXAMINATION: VITAL SIGNS: On exam, her temperature is 99.0 at last check, pulse 71, respirations 20, O2 sat 92% o n 1 liter. HEENT: Unremarkable. NECK: No JVD. CHEST: Clear anteriorly. CARDIOVASCULAR: S1 and S2 regular. ABDOMEN: Soft. EXTREMITIES: No edema. Her bronchoscopy report preliminary is negative. There are still some special stains that are pendin g on a cell block. ASSESSMENT: Pneumonia in an immunocompromised patient with multiple myeloma. PLAN: I do not see a need for the micafungin at this point. There was some Lashawn in the bronchosc opy which is probably contaminant, but I will go ahead and switch her over to oral Diflucan. She pop uld not need more than 5 days of that. From my standpoint, she is cleared [facility]. She probably needs a followup x-ray in about 3-4 weeks.
[2018-08-11 08:40] LABS: Anion Gap 10 mmol/L (10-20); BUN (Urea Nitrogen) 5 mg/dL (9.8-20.1); Calc. Creatinine Clearance 143 mL/min (70-130); Calcium 8.8 mg/dL (7.8-10.44); Carbon Dioxide 30 mmol/L (23-31); Chloride 102 mmol/L (98-107); Estimated GFR-MDRD Greater than 90; Glucose 90 mg/dL (80-115); Potassium 3.2 mmol/L (3.5-5.1); Sodium 139 mmol/L (136-145)
[2018-08-11] MEDS: POMALIDOMIDE 4 MG PO SCH (08:52)
[2018-08-11] MEDS: Enoxaparin Sodium 40 MG/0.4 ML SYRINGE SC SCH (08:52)
[2018-08-11] MEDS: Fish Oil 1,000 MG CAP PO SCH (08:52)
[2018-08-11] MEDS: Carvedilol 25 MG TAB PO SCH ×2 (08:53→20:44)
[2018-08-11] MEDS: Benzonatate 100 MG CAP PO SCH ×3 (08:53→20:44)
[2018-08-11] MEDS: Fluconazole 100 MG TAB PO SCH (08:53)
[2018-08-11] MEDS: Furosemide 40 MG TAB PO SCH (08:53)
[2018-08-11] MEDS: Saccharomyces boulardii 250 MG CAP PO SCH (08:53)
[2018-08-11] MEDS: Allopurinol 300 MG TAB PO SCH (08:53)
[2018-08-11] MEDS: Potassium Chloride 20 MEQ TAB PO SCH ×4 (08:53→20:45)
[2018-08-11] MEDS: Gabapentin 300 MG CAP PO SCH ×3 (08:53→20:45)
[2018-08-11] MEDS: Rosuvastatin 20 MG TAB PO SCH (08:54)
[2018-08-11] MEDS: Valsartan 80 MG TAB PO SCH (08:54)
[2018-08-11] MEDS: Vancomycin HCl 25 MG/ML Oral PO SCH ×4 (08:54→20:44)
[2018-08-11 09:43] LABS: Band 22 % (5-11); Eosinophils 5 % (0-10); Hemoglobin 9.4 g/dL (12.0-16.0); Lymphocytes 40 % (21-51); MDiff Complete? YES; Mean Corpuscular Hemoglobin 30.3 pg (27.0-31.0); Mean Corpuscular Volume 94.9 fL (78.0-98.0); Mean Platelet Volume 9.7 fL (7.4-10.4); Metamyelocyte 1 % (0-0); Monocytes 11 % (0-10); Myelocyte 1 % (0-0); Neutrophil 19 % (42-75); PLT Morphology Comment Appears Adequate; Platelet Count 150 thou/uL (130-400); Polychromasia SLIGHT = 2-3 cells (100X) (0-2/hpf); RBC Distribution Width 16.9 % (11.5-14.5); Toxic Granulation SLIGHT
[2018-08-11 10:21] LABS: Fungus Stain Final report (.)
[2018-08-11] MEDS: PENTAMIDINE IVPB SCH (10:29)
[2018-08-11] MEDS: WATER IVPB SCH (10:29)
[2018-08-11] MEDS: DEXTROSE 5% IVPB SCH (10:29)
[2018-08-11] MEDS ORDERED: Magnesium 2 GM/50 ML 2 GM in Premix Bag 1 BAG IVPB SCH (10:45)
--- NOTE | 2018-08-11 13:32 | PQF ---
DATE: 08-11-18 ATTN: DR. ZENAIDA RAY Please exercise your independent, professional judgment in responding to the clarification form. Clinical indicators are provided on the bottom of this form for your review Please check appropriate box(s) to clarify if the following diagnosis has been ruled in or ruled out: SEPSIS [ ] Ruled in diagnosis [ ] Continue to treat [ ] Resolved [ ] Ruled out diagnosis [ ] Other diagnosis [ ] Unable to determine In addition, please specify: Present on Admission (POA): [ ] Yes [ ] No [ ] Unable to determine For continuity of documentation, please document condition throughout progress notes and discharge summary. Thank You. CLINICAL INDICATORS - SIGNS / SYMPTOMS / LABS ER: TEMP 102.7, RR 25, PULSE: 111, OE SAT ON RA 89%, SEPSIS ALERT WAS ACTIVATED TEMP: ER: 102.7, 100.1 RR: ER: 25, 21, 25, 27, 24 H&P: SEPSIS: PATIENT'S PRESENTATION MEETS CRITERIA FOR SEPSIS, WITH FEVER, TACHYCARDIA AND SUSPECTED RESPIRATORY SOURCE OF INFECTION. WBC: -18: 5.4 08-05-18: 3.5 08-08-18: 2.9 -18: 2.3 08-11-18: 2.0 BANDS: 11-6-18: 6 08-11-18: 22 RISK FACTORS: H&P: FROM [facility], HX OF E COLI UTI, RECURRENT SALMONELLA BACTEREMIA, HX MULTIPLE MYELOMA TREATMENTS: ER: VANCOMYCIN IV, ZOSYN IV, LEVAQUIN, NS IVF (This form is maintained as a part of the permanent medical record) 2014 [employer], [employer]. All Rights Reserved [employer]
[2018-08-11] MEDS: Azithromycin 500 MG in Sodium Chloride 0.9% 250 ML 250 ML IVPB SCH (13:38)
[2018-08-11] MEDS: HumaLOG 300 UNITS/3 ML VIAL SC PRN (13:49)
--- NOTE | 2018-08-11 15:40 | PDOC.PN ---
- Subjective Encounter Start Date: 08/11/18 Encounter Start Time: 11:15 - Objective Resuscitation Status: Resuscitation Status FULL:Full Resuscitation MAR Reviewed: Yes Vital Signs & Weight: Vital Signs (12 hours) Temp Pulse Resp BP Pulse Ox 08/11/18 12:38 72 20 94 L 08/11/18 10:29 72 12 08/11/18 08:00 98.8 F 72 12 145/70 H 95 08/11/18 07:36 71 20 92 L Weight Admit Weight 212 lb 8.41 oz Weight 212 lb 8.41 oz I&O: 08/10/18 08/11/18 08/12/18 06:59 06:59 06:59 Intake Total 1950 4360.5 Balance 1950 4360.5 Result Diagrams: 08/11/18 08:10 08/11/18 08:10 Additional Labs: Accuchecks 08/11/18 08/11/18 08/11/18 11:44 06:06 05:26 POC Glucose 214 H 87 59 L* 08/10/18 08/10/18 08/10/18 20:13 19:44 15:47 POC Glucose 76 57 L* 112 H Dx/Plan (1) Atypical pneumonia Code(s): J18.9 - PNEUMONIA, UNSPECIFIED ORGANISM Status: Acute (2) Clostridium difficile diarrhea Code(s): A04.72 - ENTEROCOLITIS D/T CLOSTRIDIUM DIFFICILE, NOT SPCF RECUR Status: Acute (3) Normochromic anemia Code(s): D64.9 - ANEMIA, UNSPECIFIED Status: Acute (4) Pneumonia Code(s): J18.9 - PNEUMONIA, UNSPECIFIED ORGANISM Status: Acute Comment: empitrically treating gram negative bacterial pneumonia, although pneumocystis jiroveci is a possibility as well. (5) Acute kidney injury Code(s): N17.9 - ACUTE KIDNEY FAILURE, UNSPECIFIED Status: Acute (6) Dyslipidemia Code(s): E78.5 - HYPERLIPIDEMIA, UNSPECIFIED Status: Chronic Comment: continue statin (7) Hypertension Code(s): I10 - ESSENTIAL (PRIMARY) HYPERTENSION Status: Chronic Comment: controlled (8) Morbid obesity with BMI of 40.0-44.9, adult Code(s): E66.01 - MORBID (SEVERE) OBESITY DUE TO EXCESS CALORIES; Z68.41 - BODY MASS INDEX (BMI) 40.0-44.9, ADULT Status: Chronic (9) Multiple myeloma Code(s): C90.00 - MULTIPLE MYELOMA NOT HAVING ACHIEVED REMISSION Status: Chronic - Plan * .
[2018-08-11 19:19] VITALS: TEMP 97.6
[2018-08-11] MEDS: Promethazine HCl 25 MG/ML VIAL SLOW IVP PRN (19:46)
[2018-08-11] MEDS: diphenhydrAMINE 25 MG CAP PO SCH (20:44)
[2018-08-12 06:39] LABS: Anion Gap 7 mmol/L (10-20); BUN (Urea Nitrogen) 5 mg/dL (9.8-20.1); Calc. Creatinine Clearance 137 mL/min (70-130); Calcium 8.9 mg/dL (7.8-10.44); Carbon Dioxide 30 mmol/L (23-31); Chloride 107 mmol/L (98-107); Estimated GFR-MDRD Greater than 90; Glucose 65 mg/dL (80-115); Magnesium 2.2 mg/dL (1.6-2.6); Potassium 4.5 mmol/L (3.5-5.1); Sodium 139 mmol/L (136-145)
[2018-08-12] MEDS: Mometasone/Formoterol 120 PUFF INHALER INH SCH (07:08)
[2018-08-12 07:25] LABS: Band 13 % (5-11); Eosinophils 5 % (0-10); Hemoglobin 9.4 g/dL (12.0-16.0); Hypochromia SLIGHT = 6-15 cells (100X) (0-5/hpf); Lymphocytes 28 % (21-51); MDiff Complete? YES; Mean Corpuscular HGB CONC 30.8 g/dL (32.0-36.0); Mean Corpuscular Hemoglobin 29.2 pg (27.0-31.0); Mean Corpuscular Volume 94.7 fL (78.0-98.0); Mean Platelet Volume 10.1 fL (7.4-10.4); Metamyelocyte 1 % (0-0); Monocytes 16 % (0-10); Myelocyte 1 % (0-0); Neutrophil 31 % (42-75); PLT Morphology Comment Appears Adequate; Platelet Count 139 thou/uL (130-400); Polychromasia SLIGHT = 2-3 cells (100X) (0-2/hpf); RBC Distribution Width 16.4 % (11.5-14.5); Reactive Lymphocytes 3 % (0-10); Red Blood Cell (RBC) Count 3.21 mill/uL (4.20-5.40); Tear Drops SLIGHT = 2-5 cells (100X) (0-1/hpf)
[2018-08-12] MEDS: Vancomycin HCl 25 MG/ML Oral PO SCH ×2 (09:19→12:28)
[2018-08-12] MEDS: Enoxaparin Sodium 40 MG/0.4 ML SYRINGE SC SCH (09:19)
[2018-08-12] MEDS: Benzonatate 100 MG CAP PO SCH ×2 (09:20→15:18)
[2018-08-12] MEDS: Saccharomyces boulardii 250 MG CAP PO SCH (09:20)
[2018-08-12] MEDS: Valsartan 80 MG TAB PO SCH (09:22)
[2018-08-12] MEDS: Fluconazole 100 MG TAB PO SCH (09:22)
[2018-08-12] MEDS: Gabapentin 300 MG CAP PO SCH ×2 (09:23→15:17)
[2018-08-12] MEDS: Rosuvastatin 20 MG TAB PO SCH (09:23)
[2018-08-12] MEDS: Furosemide 40 MG TAB PO SCH (09:24)
[2018-08-12] MEDS: Allopurinol 300 MG TAB PO SCH (09:24)
[2018-08-12] MEDS: Carvedilol 25 MG TAB PO SCH (09:24)
[2018-08-12] MEDS: POMALIDOMIDE 4 MG PO SCH (09:25)
[2018-08-12] MEDS: Potassium Chloride 20 MEQ TAB PO SCH (09:25)
[2018-08-12] MEDS: Fish Oil 1,000 MG CAP PO SCH (09:26)
[2018-08-12] MEDS: Dexamethasone 4 MG TAB PO SCH (09:26)
[2018-08-12] MEDS: Sodium Chloride 0.9% 1,000 ML IV SCH ×2 (09:29→13:18)
--- NOTE | 2018-08-12 10:03 | PRG ---
DATE OF SERVICE: 08/12/2018 SUBJECTIVE: Patient is wanting to go home. She says she feels better. PHYSICAL EXAMINATION: VITAL SIGNS: On exam, temperature is 97.6, pulse 81, respirations 18, O2 sat 96% on 2 liters. HEENT: Unremarkable. NECK: No JVD. CHEST: Fairly clear. CARDIAC: S1 and S2, regular. ABDOMEN: Soft. EXTREMITIES: No edema. LABORATORY DATA: White blood cell count 2, hematocrit , platelet count 139. Sodium 139, potass ium 4.5, BUN 5, creatinine 0.6, glucose 65. ASSESSMENT: Pneumonitis in immunocompromised patient. Bronchoscopy negative. RECOMMENDATION: Stable for discharge. Antibiotics per ID.
--- NOTE | 2018-08-12 11:49 | DIS ---
DATE OF ADMISSION: 08/04/2018 DATE OF DISCHARGE: 08/12/2018 PRIMARY CARE PHYSICIAN: Brian Craig M.D. PRIMARY ONCOLOGIST: Unknown. DISCHARGE DIAGNOSES: 1. Recurrent Clostridium difficile colitis. 2. Healthcare-associated pneumonia. 3. Acute hypoxemic respiratory failure. 4. Multiple myeloma, not in remission. 5. Diabetes mellitus type 2. 6. History of Salmonella bacteremia. 7. Severe obesity with BMI of 40-44.9. 8. Hypertension. 9. Hyperlipidemia. CONSULTATIONS: 1. Infectious Disease, Dr. Beka Pereira. 2. Pulmonary Critical Care, Dr. Ventura Galvez. HISTORY AND PHYSICAL: Ms. Huggins is a 63-year-old female, recently admitted here from 07/16/2018 to for Salmonella group D bacteremia and Escherichia coli urinary tract infection. She has romeo d a history of Clostridium difficile colitis back in April of this year. She was sent back to [facility] rehabilitation on meropenem and was still receiving the meropenem the day of admission. She was doing better when she left the hospital, however, over the 10 days or so since he r discharge, she started to have some cough and had had productive sputum for about one day that was yellowish with a temperature of 101. She subsequently was sent to the Emergency Department for evalu ation. There, she met sepsis criteria with fever, tachycardia, respiratory infection and elevated white coun t. Clostridium difficile was sent that was positive, so she was resumed on oral vancomycin. ID was consulted. She was continued on Accu-Cheks and insulin for diabetes and her home medications for her hypertension. The patient was seen by Infectious Disease. Numerous serologies were sent off that ultimately came b ack negative. She was considered to have an atypical pneumonia versus bronchitis. Fungitell was jesus ntually negative, so she was taken off the micafungin, she was tapered down off broad spectrum antibi otics and switched to levofloxacin alone on the day of discharge to complete a course of therapy. Gi cecy her history of C. diff, no longer than 10 days was warranted. C. diff was positive on admission antigen, though the patient was having no diarrhea. She cont inued to have no diarrhea through her stay with only 1-2 bowel movements daily. During her stay, she was found to have low oxygen levels. She was requiring 1-2 liters of oxygen claudia al cannula, so that was set up to be done at the rehab center. PHYSICAL EXAMINATION: The patient was seen and examined on the day of discharge. Discharge plan and disposition was discussed with the patient [id number] at the bedside. DISCHARGE MEDICATIONS: Home meds resumed: 1. Allopurinol 300 mg daily. 2. Symbicort 80/4.5 one puff inhaled listed as needed, but should be b.i.d. 3. Carvedilol 25 mg p.o. b.i.d. 4. Dexamethasone 40 mg once a week on Wednesdays. 5. Fish oil 1000 mg daily. 6. Lasix 40 mg daily. 7. Gabapentin 600 mg p.o. t.i.d. 8. Protonix 40 mg daily. 9. Potassium chloride 20 mEq daily. 10. Crestor 20 mg daily. 11. Florastor 250 mg daily. 12. Valsartan 160 mg daily. 13. Tylenol 1000 mg p.o. q.4 hours p.r.n. 14. Tylenol PM at bedtime. 15. Glimepiride 1 mg p.o. b.i.d. with meals. 16. Integra plus vitamin daily. 17. Loratadine 10 mg daily p.r.n. allergies. 18. Pomalyst 4 mg p.o. daily. Meds discontinued: Meropenem, has completed course. New Medications: 1. Vancomycin 125 mg p.o. q.i.d. for 6 more days. 2. Levofloxacin 500 mg daily for 4 more days. FOLLOWUP APPOINTMENTS: 1. Primary care physician within a week. 2. Oncology as scheduled. CONDITION ON DISCHARGE: Stable. DISPOSITION: Discharge to [facility] rehabilitation. DISCHARGE ACTIVITY: Per Cardiopulmonary limits.
[2018-08-12] MEDS: Azithromycin 500 MG in Sodium Chloride 0.9% 250 ML 250 ML IVPB SCH (12:29)
[2018-08-12 13:18] VITALS: BP 124/75
--- NOTE | 2018-08-14 17:49 | EKG ---
Test Reason : Blood Pressure : / mmHG Vent. Rate : 093 BPM Atrial Rate : 093 BPM P-R Int : 158 ms QRS Dur : 092 ms QT Int : 362 ms P-R-T Axes : 055 055 067 degrees QTc Int : 450 ms Normal sinus rhythm Normal ECG Confirmed by BORIS VEE ([id number]), society editor KACEY PALACIO ([id number]) on 08/14/2018 5:48:46 PM Referred By: Confirmed By:BORIS VEE
== END 2018-08-12 16:05 | DRG 871 ==
LOC: ERS 07:22 → ONC 09:01
PROVIDERS: ADMIT Internal Medicine; ATTEND Internal Medicine
PROC: 0B9D7ZX Drainage of Right Middle Lung Lobe, Via Natural or Artificial Opening, Diagnostic (ICD-10-PCS; principal; 2018-08-07)
PROC: 0B958ZX Drainage of Right Middle Lobe Bronchus, Via Natural or Artificial Opening Endoscopic, Diagnostic (ICD-10-PCS; 2018-08-07)
PROC: 30233N1 Transfusion of Nonautologous Red Blood Cells into Peripheral Vein, Percutaneous Approach (ICD-10-PCS; 2018-08-08)
DX: A41.9 Sepsis, unspecified organism (principal); J18.9 Pneumonia, unspecified organism; J96.01 Acute respiratory failure with hypoxia; Z68.41 Body mass index [BMI] 40.0-44.9, adult; C90.00 Multiple myeloma not having achieved remission; N17.9 Acute kidney failure, unspecified; A02.9 Salmonella infection, unspecified; A04.71 Enterocolitis due to Clostridium difficile, recurrent; E11.42 Type 2 diabetes mellitus with diabetic polyneuropathy; I10 Essential (primary) hypertension; E78.5 Hyperlipidemia, unspecified; E87.6 Hypokalemia; E66.01 Morbid (severe) obesity due to excess calories; D64.9 Anemia, unspecified; Z88.5 Allergy status to narcotic agent; Z88.2 Allergy status to sulfonamides
CPT/HCPCS: 36415; 36416; 36430; 51701; 71045; 71250; 76000; 80048; 80053; 81003; 81015; 82274; 82553; 82728; 83540; 83550; 83605; 83735; 83880; 84484; 85025; 86850; 86900; 86901; 87040; 87070; 87102; 87116; 87205; 87206; 87324; 87385; 87449; 87497; 87633; 87804; 87899; 88112; 88305; 88312; 93005; 94640; 94642; 96365; 96368; A4353; G8978-GP-CM; G8979-GP-CL; G8987-GO-CM; G8988-GO-CL; J0456; J1650; J1940; J1956; J2001; J2185; J2248; J2543; J2550; J2704; J3010; J3370; J3480; J7050; J7070; J7620; J8540; P9016

== ENCOUNTER 2018-09-10 13:11 | Emergency (ER) | payer MEDICARE, OTHER | END 2018-09-10 13:34 | disposition home or self-care (01) | LOC: ERS 13:11 | DX: B37.0 Candidal stomatitis (principal); E11.622 Type 2 diabetes mellitus with other skin ulcer; L89.152 Pressure ulcer of sacral region, stage 2; I10 Essential (primary) hypertension; Z79.899 Other long term (current) drug therapy; Z79.82 Long term (current) use of aspirin; Z79.891 Long term (current) use of opiate analgesic | CPT/HCPCS: 99283 ==

== ENCOUNTER 2018-09-11 21:59 | Inpatient (IN) | payer MEDICARE, MEDICAID ==
[2018-09-11 22:48] LABS: Mean Corpuscular HGB CONC 31.7 g/dL (32.0-36.0); Mean Corpuscular Hemoglobin 29.5 pg (27.0-31.0); Mean Corpuscular Volume 93.1 fL (78.0-98.0); Mean Platelet Volume 10.1 fL (7.4-10.4); Platelet Count 131 thou/uL (130-400); RBC Distribution Width 17.4 % (11.5-14.5); Red Blood Cell (RBC) Count 2.37 mill/uL (4.20-5.40); White Blood Cell (WBC) Count 1.7 thou/uL (4.8-10.8)
--- NOTE | 2018-09-11 22:49 | RAD ---
PORTABLE CHEST: 09/11/18 HISTORY: Sepsis. Fever. COMPARISON: 08/04/18. Mild cardiomegaly. Mild vascular congestion. Linear atelectasis in the left mid lung. No focal infil trate or significant effusion. IMPRESSION: Cardiomegaly with mild vascular engorgement. Evidence of streaky atelectasis in the left mid lung. POS: H
[2018-09-11 23:06] LABS: Band 10 % (5-11); Hypochromia SLIGHT = 6-15 cells (100X) (0-5/hpf); Lymphocytes 48 % (21-51); MDiff Complete? YES; Monocytes 14 % (0-10); Neutrophil 28 % (42-75); PLT Morphology Comment Appears Adequate; Polychromasia SLIGHT = 2-3 cells (100X) (0-2/hpf)
[2018-09-11 23:06] LABS: Bilirubin Negative (Negative); Blood, Urine Large (Negative); Clarity TURBID (Clear); Glucose, Urine (Dipstick) Negative (Negative); Leukocyte Large (Negative); Nitrite Negative (Negative); Protein, Urine (Dipstick) 100 mg/dL (Neg-Trace); Specific Gravity, Urine 1.016 (1.002-1.036); pH, Urine 5.5 (5.0-9.0)
[2018-09-11 23:07] LABS: Bacteria/HPF 4+ HPF (None Seen)
[2018-09-11 23:10] LABS: ALT (SGPT) 62 U/L (8-55); AST (SGOT) 40 U/L (5-34); Alkaline Phosphatase 66 U/L (40-150); Anion Gap 14 mmol/L (10-20); BUN (Urea Nitrogen) 21 mg/dL (9.8-20.1); Bilirubin, Total 1.1 mg/dL (0.2-1.2); Calc. Creatinine Clearance 0 mL/min (70-130); Calcium 8.8 mg/dL (7.8-10.44); Carbon Dioxide 23 mmol/L (23-31); Chloride 108 mmol/L (98-107); Estimated GFR-MDRD 61; Globulin 3.9 g/dL (2.4-3.5); Glucose 76 mg/dL (80-115); Potassium 3.1 mmol/L (3.5-5.1); Protein, Total 6.9 g/dL (6.0-8.3); Sodium 142 mmol/L (136-145)
[2018-09-11 23:11] LABS: Yeast-AUWi Flag 51.6 (0-25.0)
[2018-09-11 23:18] LABS: Hyaline Casts/LPF 4-6 HYALINE CAST LPF (0-3 Hyaline)
[2018-09-11] MEDS ORDERED: cefTRIAXone\\ROCEPHIN 2 GM VIAL ONE (23:37)
[2018-09-11] MEDS ORDERED: Cefepime 2 GM in Sodium Chloride 0.9% 100 ML IVPB SCH (23:45)
[2018-09-11] MEDS ORDERED: Vancomycin HCl 1.5 GM in Sodium Chloride 0.9% 250 ML 300 ML IVPB SCH (23:45)
[2018-09-12] MEDS ORDERED: Sodium Chloride 0.9% 1,000 ML IV SCH (01:06)
[2018-09-12] MEDS ORDERED: Ondansetron PF 4 MG/2 ML Vial IVP PRN ×2 (01:06→12:54)
[2018-09-12] MEDS ORDERED: Ondansetron ODT 4 MG TAB SL PRN (01:06)
[2018-09-12 02:07] VITALS: BMI 41.1
[2018-09-12] MEDS: Acetaminophen 325 MG TAB PO PRN ×3 (03:09→16:20)
[2018-09-12] MEDS ORDERED: Sodium Chloride 0.9% 500 ML IV SCH (12:15)
[2018-09-12] MEDS ORDERED: Ondansetron ODT 4 MG TAB PO PRN (12:54)
[2018-09-12] MEDS ORDERED: Loratadine 10 MG TAB PO PRN (12:54)
[2018-09-12] MEDS ORDERED: Dextrose 5% in Water 1,000 ML IV PRN (12:54)
[2018-09-12] MEDS ORDERED: Dexamethasone 4 MG TAB PO SCH (12:54)
[2018-09-12] MEDS ORDERED: Non-Formulary Item 1 EACH (Budesonide-Formoterol [Symbicort 80-4.5] 1 PUFF) INH PRN (12:54)
[2018-09-12] MEDS ORDERED: cefTRIAXone Sodium 2,000 MG in Syringe 0 ML IVPB SCH (12:54)
[2018-09-12] MEDS ORDERED: Dextrose 50% Abboject 50 ML SYRINGE SLOW IVP PRN (12:54)
[2018-09-12] MEDS ORDERED: Mometasone/Formoterol 120 PUFF INHALER INH PRN (13:18)
[2018-09-12] MEDS: Nystatin 500,000 UNITS/5 ML UDCUP SSW SCH ×3 (13:25→20:53)
--- NOTE | 2018-09-12 13:39 | EKG ---
Test Reason : Blood Pressure : / mmHG Vent. Rate : 093 BPM Atrial Rate : 093 BPM P-R Int : 132 ms QRS Dur : 084 ms QT Int : 330 ms P-R-T Axes : 062 046 021 degrees QTc Int : 410 ms Normal sinus rhythm Normal ECG Confirmed by LULI MA DO ([id number]), video news editor MARGE ELLISON ([id number]) on 09/12/2018 1:38:37 PM Referred By: Confirmed By:LULI MA DO
[2018-09-12] MEDS: Gabapentin 300 MG CAP PO SCH ×2 (14:22→20:52)
[2018-09-12] MEDS: Benzonatate 100 MG CAP PO SCH ×2 (14:25→20:52)
[2018-09-12] MEDS: HumaLOG 300 UNITS/3 ML VIAL SC PRN (14:26)
[2018-09-12] MEDS ORDERED: Non-Formulary Item 1 EACH (Gabapentin [Gabapentin] 600 MG) PO SCH (15:00)
[2018-09-12] MEDS ORDERED: HYDROcodone/Acetaminophen 5/325 mg Tablet PO PRN ×2 (15:40)
[2018-09-12] MEDS ORDERED: traMADol HCl 50 MG TAB PO PRN ×2 (16:04)
[2018-09-12] MEDS ORDERED: Loperamide HCl 2 MG CAP PO PRN (18:49)
[2018-09-12] MEDS ORDERED: Loperamide HCl 2 MG CAP PO SCH (19:00)
[2018-09-12] MEDS: Acetaminophen 500 MG TAB PO SCH (20:52)
[2018-09-12] MEDS: diphenhydrAMINE 25 MG CAP PO SCH (20:52)
[2018-09-12] MEDS ORDERED: cefTRIAXone\\ROCEPHIN 2 GM in Sodium Chloride 0.9% 100 ML IVPB SCH (21:00)
[2018-09-13] MEDS: Acetaminophen 325 MG TAB PO PRN ×2 (01:00→15:41)
[2018-09-13 07:21] LABS: #Eosinphils 0.5 thou/uL (0.0-0.7); #Lymphocytes 0.7 thou/uL (1.20-3.40); #Monocytes 0.3 thou/uL (0.11-0.59); #Neutrophils 1.1 thou/uL (1.40-6.50); %Basophils 0.1 % (0.0-1.0); %Eosinophils 21.1 % (0.0-10.0); %Monocytes 10.5 % (0.0-10.0); %Neutrophils 42.4 % (42.0-75.0); Hemoglobin 6.4 g/dL (12.0-16.0); Mean Corpuscular HGB CONC 30.4 g/dL (32.0-36.0); Mean Corpuscular Hemoglobin 28.6 pg (27.0-31.0); Mean Corpuscular Volume 94.2 fL (78.0-98.0); Mean Platelet Volume 10.1 fL (7.4-10.4); Platelet Count 106 thou/uL (130-400); RBC Distribution Width 17.7 % (11.5-14.5); Red Blood Cell (RBC) Count 2.25 mill/uL (4.20-5.40); White Blood Cell (WBC) Count 2.5 thou/uL (4.8-10.8)
[2018-09-13 07:32] LABS: Anion Gap 7 mmol/L (10-20); BUN (Urea Nitrogen) 11 mg/dL (9.8-20.1); Calc. Creatinine Clearance 126 mL/min (70-130); Calcium 9.4 mg/dL (7.8-10.44); Carbon Dioxide 27 mmol/L (23-31); Chloride 112 mmol/L (98-107); Estimated GFR-MDRD Greater than 90; Glucose 74 mg/dL (80-115); Sodium 143 mmol/L (136-145)
[2018-09-13 07:40] LABS: Potassium 2.8 mmol/L (3.5-5.1)
[2018-09-13] MEDS ORDERED: FOLIC PO SCH (09:00)
[2018-09-13] MEDS ORDERED: [UNRECOGNIZED DRUG - OTHER] PO SCH (09:00)
[2018-09-13] MEDS ORDERED: POMALIDOMIDE 4 MG PO SCH (09:00)
[2018-09-13] MEDS ORDERED: IRON FUM PS PO SCH (09:00)
--- NOTE | 2018-09-13 09:46 | PDOC.PN ---
- Subjective Encounter Start Date: 09/13/18 Encounter Start Time: 09:00 follow up for UTI, neutropenic fever, metabolic encephalopathy, myeloma and anemia Febrile overnight, 101.0. kalina abx, still with hoarseness, perineal pain. No N/V/D/C,no CP, no SOB All systems reviewed and neg x as per HPI - Objective Resuscitation Status - Order Detail: 09/12/18 12:11 Resuscitation Status Routine Resuscitation Status: FULL: Full Resuscitation MAR Reviewed: Yes Vital Signs & Weight: Vital Signs (12 hours) Temp Pulse Resp BP Pulse Ox 09/13/18 08:37 99.3 F 92 20 114/58 L 96 09/13/18 03:30 99.8 F H 86 16 116/56 L 94 L 09/13/18 02:05 100.0 F H 09/12/18 23:47 101.0 F H 98 20 130/59 L 95 Weight Weight 213 lb 13.574 oz I&O: 09/12/18 09/13/18 09/14/18 06:59 06:59 06:59 Intake Total 2750 Balance 2750 Result Diagrams: 09/13/18 06:55 09/13/18 06:55 Additional Labs: Accuchecks 09/13/18 09/12/18 09/12/18 05:31 20:26 16:39 POC Glucose 77 128 H 138 H 09/12/18 11:47 POC Glucose 187 H Phys Exam - Physical Examination Constitutional: NAD HEENT: PERRLA, moist MMs, sclera anicteric, oral pharynx no lesions Neck: no nodes, no JVD, supple, full ROM Respiratory: no wheezing, no rales, no rhonchi, clear to auscultation bilateral Cardiovascular: RRR, no significant murmur, no rub Gastrointestinal: soft, non-tender, no distention, positive bowel sounds Musculoskeletal: no edema, pulses present Neurological: non-focal, normal sensation, moves all 4 limbs Lymphatic: no nodes Psychiatric: normal affect, A&O x 3 Skin: no rash, normal turgor, cap refill <2 seconds Deviation from normal: perineal wounds examined Dx/Plan - Plan * .
[2018-09-13] MEDS: Nystatin 500,000 UNITS/5 ML UDCUP SSW SCH ×4 (09:50→20:08)
[2018-09-13] MEDS: Fish Oil 1,000 MG CAP PO SCH (09:51)
[2018-09-13] MEDS: Gabapentin 300 MG CAP PO SCH ×3 (09:52→20:08)
[2018-09-13] MEDS: Benzonatate 100 MG CAP PO SCH ×3 (09:52→20:08)
[2018-09-13] MEDS: Saccharomyces boulardii 250 MG CAP PO SCH (09:52)
[2018-09-13] MEDS: Potassium Chloride 20 MEQ TAB PO SCH ×4 (09:53→16:21)
[2018-09-13] MEDS: Piperacillin/Tazobactam 3.375 GM in Sodium Chloride 0.9% 100 ML IVPB SCH ×2 (10:29→16:12)
[2018-09-13 15:07] LABS: Hemoglobin 8.1 g/dL (12.0-16.0)
[2018-09-13] MEDS: Acetaminophen 500 MG TAB PO SCH (20:07)
[2018-09-13] MEDS: diphenhydrAMINE 25 MG CAP PO SCH (20:08)
[2018-09-14] MEDS: Piperacillin/Tazobactam 3.375 GM in Sodium Chloride 0.9% 100 ML IVPB SCH ×4 (00:04→17:11)
[2018-09-14] MEDS: Acetaminophen 325 MG TAB PO PRN ×2 (00:36→09:13)
[2018-09-14 04:54] LABS: Anion Gap 9 mmol/L (10-20); BUN (Urea Nitrogen) 10 mg/dL (9.8-20.1); Calc. Creatinine Clearance 124 mL/min (70-130); Calcium 9.1 mg/dL (7.8-10.44); Carbon Dioxide 23 mmol/L (23-31); Chloride 112 mmol/L (98-107); Estimated GFR-MDRD Greater than 90; Glucose 173 mg/dL (80-115); Magnesium 1.6 mg/dL (1.6-2.6); Potassium 3.4 mmol/L (3.5-5.1); Sodium 141 mmol/L (136-145)
[2018-09-14 05:15] LABS: Anisocytosis SLIGHT = 6-15 cells (100X) (0-5/hpf); Band 2 % (5-11); Hemoglobin 8.8 g/dL (12.0-16.0); Hypochromia SLIGHT = 6-15 cells (100X) (0-5/hpf); Lymphocytes 48 % (21-51); MDiff Complete? YES; Mean Corpuscular HGB CONC 33.3 g/dL (32.0-36.0); Mean Corpuscular Hemoglobin 30.9 pg (27.0-31.0); Mean Platelet Volume 10.4 fL (7.4-10.4); Monocytes 2 % (0-10); Neutrophil 48 % (42-75); PLT Morphology Comment Appears Decreased; Platelet Count 92 thou/uL (130-400); Polychromasia SLIGHT = 2-3 cells (100X) (0-2/hpf); RBC Distribution Width 16.5 % (11.5-14.5); Red Blood Cell (RBC) Count 2.85 mill/uL (4.20-5.40); White Blood Cell (WBC) Count 2.6 thou/uL (4.8-10.8)
[2018-09-14] MEDS: HumaLOG 300 UNITS/3 ML VIAL SC PRN (06:23)
[2018-09-14] MEDS: Nystatin 500,000 UNITS/5 ML UDCUP SSW SCH ×4 (08:59→20:37)
[2018-09-14] MEDS: Saccharomyces boulardii 250 MG CAP PO SCH (09:00)
[2018-09-14] MEDS: Fish Oil 1,000 MG CAP PO SCH (09:00)
[2018-09-14] MEDS: Gabapentin 300 MG CAP PO SCH ×3 (09:00→20:37)
[2018-09-14] MEDS: Potassium Chloride 20 MEQ TAB PO SCH (09:01)
[2018-09-14] MEDS: Benzonatate 100 MG CAP PO SCH ×3 (09:01→20:36)
--- NOTE | 2018-09-14 17:50 | PDOC.PN ---
- Subjective Encounter Start Date: 09/14/18 Encounter Start Time: 17:45 Subjective: f/u for Neutropenic fever and UTI with E. coli. Continues on Zosyn -: and feeling better. Still with several loose stools. Appetite improved. - Objective Resuscitation Status - Order Detail: 09/12/18 12:11 Resuscitation Status Routine Resuscitation Status: FULL: Full Resuscitation MAR Reviewed: Yes Vital Signs & Weight: Vital Signs (12 hours) Temp Pulse Resp BP Pulse Ox 09/14/18 16:00 98.6 F 66 20 135/60 100 09/14/18 11:55 98.2 F 80 22 H 128/59 L 99 09/14/18 07:50 98.2 F 72 22 H 129/66 100 Weight Admit Weight 213 lb 13.574 oz Weight 213 lb 13.574 oz I&O: 09/13/18 09/14/18 09/15/18 06:59 06:59 06:59 Intake Total 2750 800 220 Balance 2750 800 220 Result Diagrams: 09/14/18 04:22 09/14/18 04:22 Additional Labs: Accuchecks 09/14/18 09/14/18 09/14/18 17:01 10:41 06:15 POC Glucose 153 H 161 H 194 H 09/13/18 09/13/18 20:33 15:41 POC Glucose 127 H 90 Microbiology 09/14/18 00:30 Stool Stool Occult Blood (FARIBA) - Final 09/14/18 00:30 Stool C. difficile GDH Antigen & Toxins - Final 09/11/18 23:03 Nasopharyngeal swab Influenza Types A,B Direct EIA - Final 09/11/18 22:48 Urine Straight Catheter Urine Culture - Final Escherichia coli 09/11/18 22:33 Venous blood - Right Arm Blood Culture - Preliminary NO GROWTH AT 48 HOURS 09/11/18 22:33 Venous blood - Left Arm Blood Culture - Preliminary NO GROWTH AT 48 HOURS Laboratory Tests 09/11/18 09/11/18 09/13/18 22:42 22:42 06:55 WBC 1.7 L Hgb 7.0 L Plt Count 131 Potassium 3.1 L 2.8 L* Magnesium 09/13/18 09/13/18 09/14/18 06:55 14:50 04:22 WBC 2.5 L Hgb 6.4 L 8.1 L Plt Count 106 L Potassium Magnesium 1.6 Phys Exam - Physical Examination Constitutional: NAD HEENT: PERRLA, sclera anicteric, oral pharynx no lesions Neck: no nodes, no JVD, supple, full ROM Respiratory: no wheezing, no rales, no rhonchi, clear to auscultation bilateral S1, S2 Cardiovascular: RRR, no significant murmur, no rub, gallop Gastrointestinal: soft, non-tender, no distention, positive bowel sounds Musculoskeletal: no edema, pulses present Neurological: normal sensation, moves all 4 limbs Psychiatric: A&O x 3 Skin: normal turgor, cap refill <2 seconds Dx/Plan (1) Neutropenic fever Code(s): D70.9 - NEUTROPENIA, UNSPECIFIED; R50.81 - FEVER PRESENTING WITH CONDITIONS CLASSIFIED ELSEWHERE Status: Acute Comment: Resolving, continue Zosyn (2) E. coli UTI Code(s): N39.0 - URINARY TRACT INFECTION, SITE NOT SPECIFIED; B96.20 - UNSP ESCHERICHIA COLI THE CAUSE OF DISEASES CLASSD ELSWHR Status: Acute Comment: Continue Zosyn, transition to po abx in next 24h (3) Acute metabolic encephalopathy Code(s): G93.41 - METABOLIC ENCEPHALOPATHY Status: Acute Comment: Resolving , supportive mgmt (4) Hypertension Code(s): I10 - ESSENTIAL (PRIMARY) HYPERTENSION Status: Chronic Qualifiers: Hypertension type: essential hypertension Qualified Code(s): I10 - Essential (primary) hypertension Comment: Resume Coreg 25mg BID (5) Multiple myeloma Code(s): C90.00 - MULTIPLE MYELOMA NOT HAVING ACHIEVED REMISSION Status: Chronic Comment: Continue current therapy, med oncology follow up - Plan continue antibiotics, 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
[2018-09-14] MEDS ORDERED: Chloraseptic Spray 180 ml Bottle PO PRN (18:08)
[2018-09-14] MEDS: Acetaminophen 500 MG TAB PO SCH (20:37)
[2018-09-14] MEDS: Carvedilol 25 MG TAB PO SCH (20:37)
[2018-09-14] MEDS: diphenhydrAMINE 25 MG CAP PO SCH (20:37)
[2018-09-15] MEDS: Piperacillin/Tazobactam 3.375 GM in Sodium Chloride 0.9% 100 ML IVPB SCH ×3 (00:27→11:42)
[2018-09-15 04:50] LABS: Band 28 % (5-11); Eosinophils 2 % (0-10); Hemoglobin 8.6 g/dL (12.0-16.0); Lymphocytes 25 % (21-51); MDiff Complete? YES; Mean Corpuscular HGB CONC 32.1 g/dL (32.0-36.0); Mean Corpuscular Volume 93.5 fL (78.0-98.0); Metamyelocyte 1 % (0-0); Monocytes 9 % (0-10); Neutrophil 35 % (42-75); PLT Morphology Comment Appears Decreased; Platelet Count 102 thou/uL (130-400); RBC Distribution Width 16.4 % (11.5-14.5); Red Blood Cell (RBC) Count 2.85 mill/uL (4.20-5.40); White Blood Cell (WBC) Count 2.7 thou/uL (4.8-10.8)
[2018-09-15] MEDS: Gabapentin 300 MG CAP PO SCH ×3 (09:02→20:20)
[2018-09-15] MEDS: Saccharomyces boulardii 250 MG CAP PO SCH (09:02)
[2018-09-15] MEDS: Carvedilol 25 MG TAB PO SCH ×2 (09:02→20:20)
[2018-09-15] MEDS: Potassium Chloride 20 MEQ TAB PO SCH (09:02)
[2018-09-15] MEDS: Benzonatate 100 MG CAP PO SCH ×3 (09:03→20:19)
[2018-09-15] MEDS: Fish Oil 1,000 MG CAP PO SCH (09:03)
[2018-09-15] MEDS: Nystatin 500,000 UNITS/5 ML UDCUP SSW SCH ×4 (09:04→20:19)
--- NOTE | 2018-09-15 11:28 | DIS ---
DATE OF ADMISSION: 09/12/2018 DATE OF DISCHARGE: 09/15/2018 DISCHARGE DIAGNOSES: 1. Neutropenic fever secondary to #2, resolved. 2. Escherichia coli urinary tract infection. 3. Acute metabolic encephalopathy, resolving. 4. Hypertension, stable. 5. Multiple myeloma. 6. Deconditioning. 7. Diabetes mellitus type 2, stable. CONSULTATIONS: None. PERTINENT LAB AND X-RAY FINDINGS: Potassium ranged between 2.8 to 3.4 and creatinine ranged between 0.71 to 1.10. Lactic acid level 2.0. CBC showed a white blood cell count ranged between 1.7 to 2.7, hemoglobin ranged between 6.4 to 8.8, and platelet count ranged between 92 to 131. Blood cultures x2 dated 09/11/2018 showed no growth at 48 hours. Urine culture dated 09/11/2018 showed greater than 100,000 colonies of E coli, sensitive to Macrobid. Influenza A and B antigen 09/11/2018, negative. Stool Hemoccult dated 09/14/2018, negative. C difficile antigen and toxin dated 09/14/2018, negative. HOSPITAL COURSE: The patient was initially admitted after presenting with fever and pancytopenia in the context of known multiple myeloma, on current chemotherapy. The patient underwent general neutropenic workup with urine culture showing greater than 100,000 colonies of E coli. The patient was placed on Zosyn after urine culture showed sensitivity to this agent. The patient received general supportive management as well as receiving 2 units of packed red blood cells after an initial hemoglobin noted at 7.0. The patient exhibited no outward or obvious signs of acute blood loss, and likely this was mediated due to chemotherapy. The patient continued treatment with IV Zosyn throughout the hospital course and clinically stabilized with supportive management. The patient's vital signs have remained stable without documented fever for the last 72 hours. The patient overall clinically stable, tolerating regular oral intake, and voiding appropriately. I have examined the patient at the time of discharge and discussed followup instructions. The patient overall clinically stable and ready for discharge on 09/15/2018. DISCHARGE MEDICATIONS: 1. Allopurinol 300 mg p.o. daily. 2. Symbicort 80/4.5 one puff inhaled b.i.d. p.r.n. 3. Carvedilol 25 mg p.o. b.i.d. 4. Dexamethasone 40 mg p.o. every Friday. 5. [facility]-3 fatty acids 1000 mg p.o. daily. 6. Gabapentin 600 mg p.o. t.i.d. 7. Glimepiride 1 mg p.o. b.i.d. 8. Humalog sliding scale. 9. Integra Plus 1 capsule p.o. daily. 10. Pomalyst 4 mg p.o. daily. 11. Potassium chloride 20 mEq p.o. daily. 12. Crestor 20 mg p.o. daily. 13. Valsartan 160 mg p.o. daily. 14. Ambien 5 mg p.o. at bedtime p.r.n. 15. Tessalon Perles 100 mg p.o. t.i.d. p.r.n. 16. Lasix 40 mg p.o. daily, hold until 09/22/2018. 17. Claritin 10 mg p.o. daily. 18. Macrobid 100 mg p.o. b.i.d., stop on 09/22/2018. 19. Protonix 40 mg p.o. daily. 20. Chloraseptic spray b.i.d. p.r.n. 21. Florastor 250 mg p.o. daily. FOLLOWUP: The patient will follow up with Dr. Brian Craig within 7 days of discharge. CONDITION ON DISCHARGE: Fair. ACTIVITY: Ad-kandi. DIET: ADA. CODE STATUS: Full. DISPOSITION: Discharged to [facility] on 09/15/2018. TIME SPENT: Total time preparing and coordinating discharge, 34 minutes. Job ID: [id number]
[2018-09-15] MEDS: Acetaminophen 325 MG TAB PO PRN (11:42)
--- NOTE | 2018-09-15 18:26 | PDOC.PN ---
- Subjective Encounter Start Date: 09/15/18 Encounter Start Time: 10:00 Subjective: f/u for neutropenic fever, UTI with Zosyn. Feels better overall -: and no recurrent fever. - Objective Resuscitation Status - Order Detail: 09/12/18 12:11 Resuscitation Status Routine Resuscitation Status: FULL: Full Resuscitation MAR Reviewed: Yes Vital Signs & Weight: Vital Signs (12 hours) Temp Pulse Resp BP Pulse Ox 09/15/18 08:00 98.5 F 68 20 127/59 L 97 Weight Admit Weight 213 lb 13.574 oz Weight 213 lb 13.574 oz I&O: 09/14/18 09/15/18 09/16/18 06:59 06:59 06:59 Intake Total 800 1940 925 Balance 800 1940 925 Result Diagrams: 09/15/18 04:24 09/14/18 04:22 Additional Labs: Accuchecks 09/15/18 09/15/18 09/15/18 16:23 10:52 05:38 POC Glucose 146 H 154 H 113 H 09/14/18 20:23 POC Glucose 160 H Microbiology 09/14/18 00:30 Stool Stool Occult Blood (FARIBA) - Final 09/14/18 00:30 Stool C. difficile GDH Antigen & Toxins - Final 09/11/18 23:03 Nasopharyngeal swab Influenza Types A,B Direct EIA - Final 09/11/18 22:48 Urine Straight Catheter Urine Culture - Final Escherichia coli 09/11/18 22:33 Venous blood - Right Arm Blood Culture - Preliminary NO GROWTH AT 48 HOURS 09/11/18 22:33 Venous blood - Left Arm Blood Culture - Preliminary NO GROWTH AT 48 HOURS Laboratory Tests 09/11/18 09/11/18 09/13/18 22:42 22:42 06:55 WBC 1.7 L Hgb 7.0 L Plt Count 131 Potassium 3.1 L 2.8 L* Magnesium 09/13/18 09/13/18 09/14/18 06:55 14:50 04:22 WBC 2.5 L Hgb 6.4 L 8.1 L Plt Count 106 L Potassium Magnesium 1.6 Phys Exam - Physical Examination Constitutional: NAD HEENT: PERRLA, sclera anicteric, oral pharynx no lesions Neck: no nodes, no JVD, supple, full ROM Respiratory: no wheezing, no rales, no rhonchi, clear to auscultation bilateral Cardiovascular: RRR, no significant murmur, no rub, gallop Gastrointestinal: soft, non-tender, no distention, positive bowel sounds Musculoskeletal: no edema, pulses present Neurological: normal sensation, moves all 4 limbs Psychiatric: A&O x 3 Skin: normal turgor, cap refill <2 seconds Dx/Plan (1) Neutropenic fever Code(s): D70.9 - NEUTROPENIA, UNSPECIFIED; R50.81 - FEVER PRESENTING WITH CONDITIONS CLASSIFIED ELSEWHERE Status: Acute Comment: Resolving, d/c Zosyn , continue Macrobid 100mg BID (2) E. coli UTI Code(s): N39.0 - URINARY TRACT INFECTION, SITE NOT SPECIFIED; B96.20 - UNSP ESCHERICHIA COLI THE CAUSE OF DISEASES CLASSD ELSWHR Status: Acute Comment: Start Macrobid 100mg BID based on Ucx sensitivities (3) Acute metabolic encephalopathy Code(s): G93.41 - METABOLIC ENCEPHALOPATHY Status: Acute Comment: Resolving , supportive mgmt (4) Hypertension Code(s): I10 - ESSENTIAL (PRIMARY) HYPERTENSION Status: Chronic Qualifiers: Hypertension type: essential hypertension Qualified Code(s): I10 - Essential (primary) hypertension Comment: Resume Coreg 25mg BID (5) Multiple myeloma Code(s): C90.00 - MULTIPLE MYELOMA NOT HAVING ACHIEVED REMISSION Status: Chronic Comment: Continue current therapy, med oncology follow up - Plan plan discussed w/ family, continue antibiotics, 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
[2018-09-15] MEDS: diphenhydrAMINE 25 MG CAP PO SCH (20:20)
[2018-09-15] MEDS: Nitrofurantoin Monohyd/M-Cryst 100 MG CAP PO SCH (20:20)
[2018-09-15] MEDS: Acetaminophen 500 MG TAB PO SCH (20:20)
[2018-09-16 04:40] LABS: ALT (SGPT) 32 U/L (8-55); AST (SGOT) 14 U/L (5-34); Albumin 2.6 g/dL (3.4-4.8); Alkaline Phosphatase 75 U/L (40-150); Anion Gap 10 mmol/L (10-20); BUN (Urea Nitrogen) 5 mg/dL (9.8-20.1); Bilirubin, Total 0.7 mg/dL (0.2-1.2); Calc. Creatinine Clearance 144 mL/min (70-130); Carbon Dioxide 25 mmol/L (23-31); Chloride 108 mmol/L (98-107); Estimated GFR-MDRD Greater than 90; Globulin 3.6 g/dL (2.4-3.5); Glucose 101 mg/dL (80-115); Protein, Total 6.2 g/dL (6.0-8.3); Sodium 140 mmol/L (136-145)
[2018-09-16 04:50] LABS: Potassium 2.6 mmol/L (3.5-5.1)
[2018-09-16] MEDS: Potassium Chloride 20 MEQ TAB PO SCH ×3 (05:14→10:50)
[2018-09-16] MEDS ORDERED: Dexamethasone 4 MG TAB PO SCH (09:00)
[2018-09-16] MEDS ORDERED: Zoledronic Acid 4 MG in Sodium Chloride 0.9% 100 ML IVPB SCH (09:00)
--- NOTE | 2018-09-16 09:45 | PQF ---
DATE: 09-16-18 ATTN: DR. SEKOU JANE Please exercise your independent, professional judgment in responding to the clarification form. Clinical indicators are provided on the bottom of this form for your review Please check appropriate box(s) to clarify if the following diagnosis has been ruled in or ruled out: SEPSIS [ ] Ruled in diagnosis [ ] Continue to treat [ ] Resolved [ x ] Ruled out diagnosis [ ] Other diagnosis [ ] Unable to determine In addition, please specify: Present on Admission (POA): [ ] Yes [ x ] No [ ] Unable to determine For continuity of documentation, please document condition throughout progress notes and discharge summary. Thank You. CLINICAL INDICATORS - SIGNS / SYMPTOMS / LABS ER DX: NEUTROPENIC FEVER, SEPSIS FROM UTI, UTI ER: NEUTROPENIC FEVER, UTI, MEETS SIRS CRITERIA WBC: 12-14-18: 1.7 12-16-18: 2.5 12-17-18: 2.6 12-18-18: 2.7 BAND: 12-14-18: 10 12-17-18: 2 12-18-18: 28 TEMP: ER: 100.7, 99.1 12-15-18: 100.1, 102.0, 100.3, 99.7, 101.0 12-16-18: 100.0, 99.8 BP: ER: 97/55, 87/63, 96/57 12-15-18: 95/50, 88/45, 88/45 RISK FACTORS: ER: NEUTROPENIC FEVER, LOW WBC, PRESSURE ULCER SACRUM STAGE 2, MULTIPLE MYELOMA TREATMENTS: ER: VANCOMYCIN, IVF, CEFEPIME, CEFTRIAXONE (This form is maintained as a part of the permanent medical record) 2014 [employer] All Rights Reserved [email or web address] Office: [phone] [facility] [facility]
[2018-09-16] MEDS: Carvedilol 25 MG TAB PO SCH (10:47)
[2018-09-16] MEDS: Gabapentin 300 MG CAP PO SCH ×2 (10:47→14:09)
[2018-09-16] MEDS: Nystatin 500,000 UNITS/5 ML UDCUP SSW SCH ×3 (10:47→16:10)
[2018-09-16] MEDS: Fish Oil 1,000 MG CAP PO SCH (10:47)
[2018-09-16] MEDS: Saccharomyces boulardii 250 MG CAP PO SCH (10:47)
[2018-09-16] MEDS: Nitrofurantoin Monohyd/M-Cryst 100 MG CAP PO SCH (10:48)
[2018-09-16] MEDS: Benzonatate 100 MG CAP PO SCH ×2 (10:48→14:09)
--- NOTE | 2018-09-16 12:14 | RAD ---
STANDARD ADULT BONE SURVEY X-RAY: HISTORY: Multiple myeloma re-evaluation. COMPARISON: Bone survey from 2013. TECHNIQUE: Radiographs of the cervical spine, forearm, skull, thoracic spine, lumbar spine, upper extremities, a nd lower extremities were obtained. FINDINGS: There is mild uncinate process hypertrophy in the mid cervical spine. No suspicious osteolytic or os teoblastic lesions within the axial or proximal appendicular skeleton. Severe medial compartment degenerative disease of the left knee. Severe degenerative disease of the medial compartment of the right knee. Mild narrowing at the L4-L5 and L5-S1 disk spaces. IMPRESSION: No evidence for osteolytic disease. POS: [facility]
[2018-09-16 12:27] VITALS: BP 131/60; TEMP 99
[2018-09-16] MEDS: Acetaminophen 325 MG TAB PO PRN (15:58)
[2018-09-16] MEDS: HumaLOG 300 UNITS/3 ML VIAL SC PRN (16:10)
--- NOTE | 2018-09-16 18:06 | PDOC.PN ---
- Subjective Encounter Start Date: 09/16/18 Encounter Start Time: 18:05 Subjective: f/u for neutropenic fever, e. coli UTI tx with Zosyn converting to Macrobid - Objective Resuscitation Status - Order Detail: 09/12/18 12:11 Resuscitation Status Routine Resuscitation Status: FULL: Full Resuscitation MAR Reviewed: Yes Vital Signs & Weight: Vital Signs (12 hours) Temp Pulse Resp BP BP Pulse Ox 09/16/18 12:00 99.0 F 63 18 131/60 98 09/16/18 08:00 100 09/16/18 07:41 99.3 F 64 20 143/84 H 100 Weight Admit Weight 213 lb 13.574 oz Weight 213 lb 13.574 oz I&O: 09/15/18 09/16/18 09/17/18 06:59 06:59 06:59 Intake Total 1940 1405 Balance 1940 1405 Result Diagrams: 09/15/18 04:24 09/16/18 04:14 Additional Labs: Accuchecks 09/16/18 09/16/18 09/15/18 11:18 05:17 20:32 POC Glucose 153 H 107 125 H Radiology Reviewed by me: Yes (Bone scan - neg for metastasis to bones) Phys Exam - Physical Examination Constitutional: NAD HEENT: PERRLA, sclera anicteric Neck: no nodes, no JVD, supple, full ROM Respiratory: no wheezing, no rales, no rhonchi, clear to auscultation bilateral S1, S2 Cardiovascular: RRR, no significant murmur, no rub, gallop Gastrointestinal: soft, non-tender, no distention, positive bowel sounds Musculoskeletal: no edema, pulses present Neurological: normal sensation, moves all 4 limbs Psychiatric: normal affect, A&O x 3 Skin: normal turgor, cap refill <2 seconds Dx/Plan (1) Neutropenic fever Code(s): D70.9 - NEUTROPENIA, UNSPECIFIED; R50.81 - FEVER PRESENTING WITH CONDITIONS CLASSIFIED ELSEWHERE Status: Acute Comment: Resolving, d/c Zosyn , continue Macrobid 100mg BID (2) E. coli UTI Code(s): N39.0 - URINARY TRACT INFECTION, SITE NOT SPECIFIED; B96.20 - UNSP ESCHERICHIA COLI THE CAUSE OF DISEASES CLASSD ELSWHR Status: Acute Comment: Start Macrobid 100mg BID based on Ucx sensitivities (3) Acute metabolic encephalopathy Code(s): G93.41 - METABOLIC ENCEPHALOPATHY Status: Acute Comment: Resolving , supportive mgmt (4) Hypertension Code(s): I10 - ESSENTIAL (PRIMARY) HYPERTENSION Status: Chronic Qualifiers: Hypertension type: essential hypertension Qualified Code(s): I10 - Essential (primary) hypertension Comment: Resume Coreg 25mg BID (5) Multiple myeloma Code(s): C90.00 - MULTIPLE MYELOMA NOT HAVING ACHIEVED REMISSION Status: Chronic Comment: Continue current therapy, med oncology follow up - Plan continue antibiotics, 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
[2018-09-17] MEDS ORDERED: Potassium Chloride 20 MEQ TAB PO SCH (09:00)
[2018-09-17] MEDS ORDERED: Prenatal Vitamin 1 TAB PO SCH (09:00)
--- NOTE | 2018-09-17 10:04 | DIS ---
DATE OF ADMISSION: 09/12/2018 DATE OF DISCHARGE: 09/16/2018 ADDENDUM: Please see dictated discharge summary of 09/15/2018, for full details. This is an addendum to the discharge summary. HOSPITAL COURSE: The patient's overall discharge was held for approximately 24 hours due to insurance authorization procedures. The patient remained clinically stable during the remainder of the hospital stay without complication. I have examined the patient at the time of discharge and discussed followup instructions. The patient clinically stable and ready for discharge on 09/16/2018. Please see dictated discharge summary of 09/15/2018, for full details of medication and followup instructions. Job ID: [id number]
[2018-09-18 10:19] LABS: Kappa Light Chains 1.2 mg/L (3.3-19.4); Lambda Light Chain 361.8 mg/L (5.7-26.3)
[2018-09-18 19:12] LABS: A/G Ratio 0.7 (0.7-1.7); Albumin 2.3 g/dL (2.9-4.4); Alpha 1 0.4 g/dL (0.0-0.4); Alpha 2 0.8 g/dL (0.4-1.0); Beta 0.8 g/dL (0.7-1.3); Gamma 1.3 g/dL (0.4-1.8); Globulin, Total 3.3 g/dL (2.2-3.9); M-Spike 1.2 g/dL (Not Observed)
== END 2018-09-16 18:27 | DRG 689 ==
LOC: ERS 21:59 → ONC 09-12 00:42
PROVIDERS: ADMIT Internal Medicine; ATTEND Internal Medicine
PROC: 30233N1 Transfusion of Nonautologous Red Blood Cells into Peripheral Vein, Percutaneous Approach (ICD-10-PCS; principal; 2018-09-13)
DX: N39.0 Urinary tract infection, site not specified (principal); G93.41 Metabolic encephalopathy; C90.00 Multiple myeloma not having achieved remission; Z68.41 Body mass index [BMI] 40.0-44.9, adult; I10 Essential (primary) hypertension; E11.9 Type 2 diabetes mellitus without complications; D70.9 Neutropenia, unspecified; R50.81 Fever presenting with conditions classified elsewhere; L89.152 Pressure ulcer of sacral region, stage 2; B96.20 Unspecified Escherichia coli [E. coli] as the cause of diseases classified elsewhere; K21.9 Gastro-esophageal reflux disease without esophagitis; E66.9 Obesity, unspecified; Z79.84 Long term (current) use of oral hypoglycemic drugs; Z79.82 Long term (current) use of aspirin
CPT/HCPCS: 36415; 36416; 36430; 51701; 71045; 77075; 80048; 80053; 81003; 81015; 82274; 83605; 83735; 83883; 84165; 85007; 85025; 85027; 86850; 86900; 86901; 87040; 87077; 87086; 87186; 87324; 87449; 87804; 93005; 96361; 96365; 96367; 96375; 99283; A4353; G8978-GP-CM; G8979-GP-CK; G8987-GO-CL; G8988-GO-CK; J0692; J0696; J2543; J3370; J3489; J7050; J8540; P9016

== ENCOUNTER 2018-10-01 18:48 | Inpatient (IN) | payer MEDICARE, MEDICAID ==
[2018-10-01] MEDS ORDERED: Potassium Chloride 20 MEQ TAB ONE (19:39)
[2018-10-01] MEDS ORDERED: Magnesium 2 GM/50 ML BAG (IN WATER) ONE (19:39)
[2018-10-01 20:07] LABS: Hemoglobin 7.7 g/dL (12.0-16.0); Mean Corpuscular HGB CONC 32.8 g/dL (32.0-36.0); Mean Corpuscular Hemoglobin 30.6 pg (27.0-31.0); Mean Corpuscular Volume 93.1 fL (78.0-98.0); Mean Platelet Volume 9.4 fL (7.4-10.4); Platelet Count 257 thou/uL (130-400); RBC Distribution Width 17.3 % (11.5-14.5); Red Blood Cell (RBC) Count 2.52 mill/uL (4.20-5.40); White Blood Cell (WBC) Count 6.5 thou/uL (4.8-10.8)
[2018-10-01 20:26] LABS: ALT (SGPT) 32 U/L (8-55); AST (SGOT) 25 U/L (5-34); Albumin 3.2 g/dL (3.4-4.8); Alkaline Phosphatase 121 U/L (40-150); Anion Gap 15 mmol/L (10-20); BUN (Urea Nitrogen) 41 mg/dL (9.8-20.1); Bilirubin, Total 0.5 mg/dL (0.2-1.2); Calc. Creatinine Clearance 0 mL/min (70-130); Calcium 8.7 mg/dL (7.8-10.44); Carbon Dioxide 23 mmol/L (23-31); Chloride 103 mmol/L (98-107); Estimated GFR-MDRD 24; Globulin 4.3 g/dL (2.4-3.5); Glucose 306 mg/dL (80-115); Magnesium 1.8 mg/dL (1.6-2.6); Protein, Total 7.5 g/dL (6.0-8.3); Sodium 138 mmol/L (136-145)
[2018-10-01 20:29] LABS: Potassium 2.9 mmol/L (3.5-5.1)
[2018-10-01 20:34] LABS: Anisocytosis SLIGHT = 6-15 cells (100X) (0-5/hpf); Band 23 % (5-11); Lymphocytes 17 % (21-51); MDiff Complete? YES; Monocytes 18 % (0-10); Myelocyte 2 % (0-0); Neutrophil 40 % (42-75); Nucleated RBC 1 % (0); Tear Drops SLIGHT = 2-5 cells (100X) (0-1/hpf); Vacuoles SLIGHT
[2018-10-01] MEDS ORDERED: Acetaminophen 500 MG TAB ONE (20:45)
[2018-10-01 20:50] LABS: Bilirubin Negative (Negative); Blood, Urine Large (Negative); Clarity TURBID (Clear); Glucose, Urine (Dipstick) 100 mg/dL (Negative); Leukocyte Large (Negative); Nitrite Negative (Negative); Protein, Urine (Dipstick) 100 mg/dL (Neg-Trace); Specific Gravity, Urine 1.018 (1.002-1.036); pH, Urine 6.5 (5.0-9.0)
[2018-10-01 20:51] LABS: Bacteria/HPF 4+ HPF (None Seen); RBC/HPF GREATER THAN 50-TNTC HPF (0-3)
[2018-10-01 20:53] LABS: Hyaline Casts/LPF 4-6 HYALINE CAST LPF (0-3 Hyaline); Pathc Cast-AUWi Flag 9.46 (0-2.49)
--- NOTE | 2018-10-01 21:56 | RAD ---
CHEST ONE VIEW: 10/01/18 HISTORY: 63-year-old female with history of elevated BUN on blood work. Dark colored urine, frequent urinary t ract infections. COMPARISON: 09/01/18. FINDINGS: Heart size is normal. The lungs are clear. No confluent pneumonia or pleural effusions. IMPRESSION: No acute intrathoracic disease. Stable from prior study. POS: [facility]
[2018-10-01] MEDS ORDERED: Piperacillin/Tazobactam 4.5 GM VIAL ONE (22:13)
[2018-10-01] MEDS ORDERED: Potassium Chloride 40 MEQ in Sodium Chloride 0.9% 500 ML IVPB SCH (22:30)
[2018-10-02] MEDS ORDERED: HumaLOG 300 UNITS/3 ML VIAL SC PRN (00:24)
[2018-10-02] MEDS ORDERED: Senokot S 8.6-50 MG TAB PO PRN (00:24)
[2018-10-02] MEDS ORDERED: Loperamide HCl 2 MG CAP PO PRN (00:24)
[2018-10-02] MEDS ORDERED: Dextrose 5% in Water 1,000 ML IV PRN (00:24)
[2018-10-02] MEDS ORDERED: Bisacodyl 5 MG TAB PO PRN (00:24)
[2018-10-02] MEDS ORDERED: Ondansetron ODT 4 MG TAB PO PRN (00:24)
[2018-10-02] MEDS ORDERED: Ondansetron PF 4 MG/2 ML Vial IVP PRN (00:24)
[2018-10-02] MEDS ORDERED: Zolpidem Tartrate 5 MG TAB PO PRN (00:24)
[2018-10-02] MEDS ORDERED: Bisacodyl 10 MG SUPP PR PRN (00:24)
[2018-10-02] MEDS ORDERED: Calcium Carbonate 500 MG ChewTAB PO PRN (00:24)
--- NOTE | 2018-10-02 01:13 | HP ---
PRIMARY CARE PHYSICIAN: [facility] Call admission. REASON FOR ADMISSION: Hypokalemia, sepsis, UTI, acute on chronic kidney failure. HISTORY OF PRESENT ILLNESS: A 63-year-old female, who was brought to emergency room from halfway, because patient was feeling bad. She was having generalized weakness. She was also having low-grade fever. The patient's urine was very dark colored, concentrated, and foul smelling. The patient was found with urinary tract infection. She has chronic anemia and this time she has bandemia. She also has acute on chronic kidney failure and hypokalemia. The patient is being admitted for electrolyte replacement, hydration, and IV antibiotic therapy. The patient is a poor historian. PAST MEDICAL HISTORY: Multiple myeloma, history of Clostridium difficile, diarrhea, diabetes type 2, hypertension, dyslipidemia, peripheral neuropathy, history of Salmonella bacteremia, Escherichia coli UTI. PAST SURGICAL HISTORY: , left knee surgery, tubal ligation, colonoscopy, EGD, umbilical hernia repair. REVIEW OF SYSTEMS: CONSTITUTIONAL: Negative for weight loss or gain, ability to conduct usual activities. SKIN: Negative for rash, itching. EYES: Negative for double vision, pain. ENT/MOUTH: Negative for nose bleeding, neck stiffness, pain, tenderness. CARDIOVASCULAR: Negative for palpitations, dyspnea on exertion, orthopnea. RESPIRATORY: Negative for shortness of breath, wheezing, cough, hemoptysis, fever or night sweats. GASTROINTESTINAL: Negative for poor appetite, abdominal pain, heartburn, nausea, vomiting, constipation, or diarrhea. GENITOURINARY: Negative for urgency, frequency, dysuria, nocturia. MUSCULOSKELETAL: Negative for pain, swelling. NEUROLOGIC/PSYCHIATRIC: Negative for anxiety, depression. ALLERGY/IMMUNOLOGIC: Negative for skin rash, bleeding tendency. Please see my HPI for pertinent positives and negatives. All other review of systems reviewed and negative, except as mentioned in the HPI. ALLERGIES: CODEINE, MORPHINE, SULFA, TRAMADOL, VICODIN. SOCIAL HISTORY: The patient is currently from [facility]. No history of tobacco, alcohol, or illicit drug abuse. FAMILY HISTORY: No family history of coronary artery disease, stroke, or cancer. CURRENT HOME MEDICATIONS: 1. Allopurinol 300 mg daily. 2. Symbicort two puffs inhalation b.i.d. 3. Coreg 25 mg b.i.d. 4. Gabapentin 600 mg p.o. t.i.d. 5. Glimepiride 1 mg p.o. b.i.d. 6. Humalog as per sliding scale. 7. Nephro-Tabitha one tablet daily. 8. Pomalyst 4 mg p.o. daily. 9. Potassium chloride 20 mEq p.o. daily. 10. Crestor 20 mg p.o. daily. 11. Valsartan 160 mg p.o. daily. 12. Lasix 40 mg p.o. daily. 13. Ambien 5 mg p.o. q.h.s. p.r.n. 14. Macrobid 100 mg p.o. b.i.d. 15. Protonix 40 mg p.o. daily. 16. Florastor 250 mg p.o. daily. EMERGENCY ROOM COURSE: The patient is given potassium chloride 40 mEq, Zosyn 4.5 g, IV fluid, Tylenol 1 g, magnesium sulfate 2 g. PHYSICAL EXAMINATION: VITAL SIGNS: Currently blood pressure 115/72, pulse 72, respiratory rate 16, temperature 98.3, saturation 98% on room air. Weight 90.7 kg. GENERAL: The patient is currently alert, awake, chronically ill, no obvious acute distress. HEENT: Head; normocephalic and atraumatic. Eyes; pupils round, reactive to light. Extraocular muscle intact. ENT; oropharynx within normal limits. Moist mucous membranes. No oral lesion. No pharyngeal erythema. No exudate. NECK: Supple. No JVD. No thyromegaly. No carotid bruit. LUNGS: Clear to auscultation without any rhonchi or rales. CARDIAC: S1, S2. Regular. No murmur. No gallop. No rub. ABDOMEN: Soft. Bowel sounds present. Nontender. Nondistended. No organomegaly. No mass. No suprapubic tenderness. BACK: Unremarkable. No CVA tenderness. EXTREMITIES: Upper extremities; passive movement of all joints are normal. Lower extremity; no edema, good distal pulsation. SKIN: No skin rash. HEMATOLOGICAL: No lymphadenopathy. NEUROLOGIC: Nonfocal examination. SIGNIFICANT LABORATORY DATA: Chest x-ray based on my review, no acute cardiopulmonary process. EKG showing left atrial enlargement. CBC; WBC 6.5, hemoglobin 7.7, platelet 257 with bandemia. BMP; sodium 138, potassium 2.9, chloride 103, carbon dioxide 23, anion gap 15, BUN 41, creatinine 2.48, glucose 306, calcium 8.7, magnesium 1.8. LFT; AST 25, ALT 32, alkaline phosphatase 121, albumin 3.2. Urinalysis suggestive of urinary tract infection. ASSESSMENT AND PLAN: 1. Sepsis with acute organ dysfunction, sepsis related with urinary tract infection and the patient has acute on chronic kidney failure. 2. Urinary tract infection with previous history of multidrug resistant urinary tract infection. 3. Acute on chronic kidney failure with baseline chronic kidney disease, stage 3. 4. Hypokalemia. 5. Multiple myeloma. 6. Normocytic normochromic anemia. 7. Chronic gout. 8. Hypertension. 9. Diabetes, type 2. 10. Chronic obstructive pulmonary disease/asthma. 11. Obesity. 12. Physical deconditioning. PLAN: Admission to telemetry floor, start Zosyn, follow up on culture result. Continue gentle IV fluid. Repeat labs tomorrow. We will start selected home medication, diabetic diet, insulin as per sliding scale. DVT prophylaxis, heparin 5000 units subcu b.i.d. GI prophylaxis, Pepcid 20 mg p.o. daily. CODE STATUS: The patient is full code. DISPOSITION PLAN: We will continue PT, OT while in hospital and eventually the patient will go back to halfway. Plan of care discussed with the patient in detail. Job ID: [id number]
[2018-10-02] MEDS: 1/2 NS w/KCL 20 mEq 1,000 ML IV SCH ×4 (03:06→15:30)
[2018-10-02] MEDS: Acetaminophen 325 MG TAB PO PRN ×3 (04:30→23:02)
[2018-10-02] MEDS: Piperacillin/Tazobactam 2.25 GM in Sodium Chloride 0.9% 100 ML IVPB SCH ×4 (04:32→22:58)
[2018-10-02 06:35] LABS: ALT (SGPT) 33 U/L (8-55); AST (SGOT) 25 U/L (5-34); Albumin 2.9 g/dL (3.4-4.8); Alkaline Phosphatase 101 U/L (40-150); Anion Gap 14 mmol/L (10-20); BUN (Urea Nitrogen) 39 mg/dL (9.8-20.1); Bilirubin, Total 0.4 mg/dL (0.2-1.2); Calc. Creatinine Clearance 46 mL/min (70-130); Calcium 8.4 mg/dL (7.8-10.44); Carbon Dioxide 20 mmol/L (23-31); Chloride 111 mmol/L (98-107); Estimated GFR-MDRD 33; Glucose 265 mg/dL (80-115); Potassium 3.5 mmol/L (3.5-5.1); Protein, Total 6.9 g/dL (6.0-8.3); Sodium 141 mmol/L (136-145)
[2018-10-02 06:39] LABS: Band 28 % (5-11); Eosinophils 1 % (0-10); Hemoglobin 7.4 g/dL (12.0-16.0); Lymphocytes 8 % (21-51); MDiff Complete? YES; Mean Corpuscular HGB CONC 31.4 g/dL (32.0-36.0); Mean Corpuscular Hemoglobin 29.7 pg (27.0-31.0); Mean Corpuscular Volume 94.5 fL (78.0-98.0); Mean Platelet Volume 9.1 fL (7.4-10.4); Metamyelocyte 1 % (0-0); Monocytes 11 % (0-10); Neutrophil 51 % (42-75); Platelet Count 200 thou/uL (130-400); RBC Distribution Width 17.3 % (11.5-14.5); Red Blood Cell (RBC) Count 2.48 mill/uL (4.20-5.40); White Blood Cell (WBC) Count 3.8 thou/uL (4.8-10.8)
[2018-10-02] MEDS: Heparin 5,000 UNITS/ML VIAL SC SCH ×2 (09:32→20:57)
[2018-10-02] MEDS: Saccharomyces boulardii 250 MG CAP PO SCH (09:34)
[2018-10-02] MEDS: Famotidine 20 MG TAB PO SCH (09:34)
[2018-10-02] MEDS: HumaLOG 300 UNITS/3 ML VIAL SC PRN ×2 (12:31→17:17)
[2018-10-03] MEDS: 1/2 NS w/KCL 20 mEq 1,000 ML IV SCH ×2 (02:38→18:51)
[2018-10-03] MEDS: Piperacillin/Tazobactam 2.25 GM in Sodium Chloride 0.9% 100 ML IVPB SCH ×4 (05:01→23:28)
[2018-10-03] MEDS: Heparin 5,000 UNITS/ML VIAL SC SCH ×2 (08:35→20:40)
[2018-10-03] MEDS: Famotidine 20 MG TAB PO SCH (08:35)
[2018-10-03] MEDS: Saccharomyces boulardii 250 MG CAP PO SCH (08:35)
[2018-10-03] MEDS: Dextrose 50% Abboject 50 ML SYRINGE SLOW IVP PRN ×2 (11:46→14:34)
[2018-10-03] MEDS: Dextrose 5% in Water 1,000 ML IV SCH (14:35)
[2018-10-03] MEDS: Acetaminophen 325 MG TAB PO PRN ×2 (17:14→20:39)
[2018-10-04] MEDS: Acetaminophen 325 MG TAB PO PRN ×2 (04:23→11:22)
[2018-10-04] MEDS: Piperacillin/Tazobactam 2.25 GM in Sodium Chloride 0.9% 100 ML IVPB SCH ×3 (04:26→16:18)
--- NOTE | 2018-10-04 06:44 | PDOC.PN ---
- Subjective Encounter Start Date: 10/03/18 (LATE ENTRY) Encounter Start Time: 09:00 -: old records requested/rev Patient seen and examined. No new complaints. No overnight events - Objective Resuscitation Status - Order Detail: 10/01/18 22:25 Resuscitation Status Routine Resuscitation Status: FULL: Full Resuscitation MAR Reviewed: Yes Vital Signs & Weight: Vital Signs (12 hours) Temp Pulse Resp BP Pulse Ox 10/04/18 04:30 97 134/61 10/04/18 04:00 100.3 F H 103 H 22 H 96 10/03/18 20:51 99.3 F 97 18 124/58 L 100 Weight Admit Weight 208 lb 4.8 oz Weight 209 lb 7 oz I&O: 10/02/18 10/03/18 10/04/18 06:59 06:59 06:59 Intake Total 1540 Output Total 650 Balance 890 Result Diagrams: 10/02/18 05:43 10/02/18 05:43 Additional Labs: Accuchecks 10/04/18 10/03/18 10/03/18 05:37 20:09 18:04 POC Glucose 104 129 H 83 10/03/18 10/03/18 15:26 11:42 POC Glucose 156 H 56 L* Radiology Reviewed by me: Yes EKG Reviewed by me: Yes Phys Exam - Physical Examination Constitutional: NAD HEENT: PERRLA, moist MMs, sclera anicteric Neck: no JVD, supple Respiratory: no wheezing, no rales, no rhonchi Cardiovascular: RRR, no significant murmur, no rub Gastrointestinal: soft, non-tender, no distention, positive bowel sounds Musculoskeletal: no edema, pulses present Neurological: non-focal Lymphatic: no nodes Psychiatric: normal affect Skin: no rash, normal turgor Dx/Plan (1) Acute worsening of stage 3 chronic kidney disease Code(s): N18.3 - CHRONIC KIDNEY DISEASE, STAGE 3 (MODERATE) Status: Acute (2) Hypoglycemia associated with type 2 diabetes mellitus Code(s): E11.649 - TYPE 2 DIABETES MELLITUS WITH HYPOGLYCEMIA WITHOUT COMA Status: Acute (3) Sepsis with acute organ dysfunction Code(s): A41.9 - SEPSIS, UNSPECIFIED ORGANISM; R65.20 - SEVERE SEPSIS WITHOUT SEPTIC SHOCK Status: Acute (4) UTI (urinary tract infection) Status: Acute Comment: (5) Diabetes type 2, controlled Code(s): E11.9 - TYPE 2 DIABETES MELLITUS WITHOUT COMPLICATIONS Status: Chronic Comment: controlled (6) Dyslipidemia Code(s): E78.5 - HYPERLIPIDEMIA, UNSPECIFIED Status: Chronic Comment: continue statin (7) Hypertension Code(s): I10 - ESSENTIAL (PRIMARY) HYPERTENSION Status: Chronic Qualifiers: Comment: (8) Morbid obesity with BMI of 40.0-44.9, adult Code(s): E66.01 - MORBID (SEVERE) OBESITY DUE TO EXCESS CALORIES; Z68.41 - BODY MASS INDEX (BMI) 40.0-44.9, ADULT Status: Chronic (9) Multiple myeloma Code(s): C90.00 - MULTIPLE MYELOMA NOT HAVING ACHIEVED REMISSION Status: Chronic Comment: Continue current therapy, med oncology follow up - Plan cont current plan of care, continue antibiotics * Continue zosyn * start D5 with water * medication reviewed as below * symptomatic treatment * follow culture. Review of Systems - Review of Systems ENT: negative: Ear Pain, Ear Discharge, Nose Pain, Nose Discharge, Nose Congestion, Mouth Pain, Mouth Swelling, Throat Pain, Throat Swelling, Other Respiratory: negative: Cough, Dry, Shortness of Breath, Hemoptysis, SOB with Excertion, Pleuritic Pain, Sputum, Wheezing Cardiovascular: negative: chest pain, palpitations, orthopnea, paroxysmal nocturnal dyspnea, edema, light headedness, other Gastrointestinal: negative: Nausea, Vomiting, Abdominal Pain, Diarrhea, Constipation, Melena, Hematochezia, Other Genitourinary: negative: Dysuria, Frequency, Incontinence, Hematuria, Retention , Other Musculoskeletal: negative: Neck Pain, Shoulder Pain, Arm Pain, Back Pain, Hand Pain, Leg Pain, Foot Pain, Other - Medications/Allergies Allergies/Adverse Reactions: Allergies Allergy/AdvReac Type Severity Reaction Status Date / Time codeine Allergy Stomach Verified 10/02/18 00:18 Ache hydrocodone [From Vicodin] Allergy Verified 10/02/18 00:18 morphine Allergy Stomach Verified 10/02/18 00:18 Ache Sulfa (Sulfonamide Allergy Stomach Verified 10/02/18 00:18 Antibiotics) Ache tramadol Allergy Stomach Verified 10/02/18 00:18 Ache Medications: Current Medications Acetaminophen (Tylenol) 650 mg PO Q4H PRN PRN Reason: Headache/Fever/Mild Pain (1-3) Last Admin: 10/04/18 04:23 Dose: 650 mg Albuterol/Ipratropium (Duoneb) 3 ml NEB [id number] PRN PRN Reason: SOB &/or Wheezing Bisacodyl (Dulcolax) 10 mg PO DAILYPRN PRN PRN Reason: Constipation Bisacodyl (Dulcolax) 10 mg [place] DAILYPRN PRN PRN Reason: Constipation Calcium Carbonate (Tums) 1,000 mg PO Q4H PRN PRN Reason: Heartburn or Indigestion Dextrose/Water (Dextrose 50%) 25 gm SLOW IVP PRN PRN PRN Reason: Hypoglycemia Last Admin: 10/03/18 14:34 Dose: 25 gm Famotidine (Pepcid) 20 mg PO DAILY [facility] Last Admin: 10/03/18 08:35 Dose: 20 mg Glucagon (Glucagon) 1 mg IM PRN PRN PRN Reason: Hypoglycemia Heparin Sodium (Porcine) (Heparin) 5,000 units SC BID [facility] Last Admin: 10/03/18 20:40 Dose: 5,000 units Piperacillin Sod/Tazobactam (Sod 2.25 gm/ Sodium Chloride) 100 mls @ 200 mls/ hr IVPB 0500,1100,1700,2300 [facility] Last Admin: 10/04/18 04:26 Dose: 100 mls Dextrose/Water (D5w) 1,000 mls @ 0 mls/hr IV .Q0M PRN PRN Reason: Hypoglycemia Dextrose/Water (D5w) 1,000 mls @ 50 mls/hr IV .Q20H [facility] Last Admin: 10/03/18 14:35 Dose: 1,000 mls Insulin Human Lispro (Humalog) 0 units [place] .AGGRESSIVE SLIDING PRN PRN Reason: Aggressive Correctional Scale Last Admin: 10/02/18 17:17 Dose: 9 unit Insulin Human Lispro (Humalog) 0 units SC .BEDTIME SLIDING SC PRN PRN Reason: Bedtime Correctional Scale Loperamide HCl (Imodium) 2 mg PO PRN PRN PRN Reason: Diarrhea/Loose Stools Ondansetron HCl (Zofran Odt) 4 mg PO Q6H PRN PRN Reason: Nausea/Vomiting Ondansetron HCl (Zofran) 4 mg IVP Q6H PRN PRN Reason: Nausea/Vomiting Saccharomyces Boulardii (Florastor) 250 mg PO DAILY [facility] Last Admin: 10/03/18 08:35 Dose: 250 mg Senna/Docusate Sodium (Senokot S) 2 tab PO BID PRN PRN Reason: Constipation Last Admin: 10/02/18 16:03 Dose: 2 tab Zolpidem Tartrate (Ambien) 5 mg PO HSPRN PRN PRN Reason: Insomnia
[2018-10-04 07:32] LABS: #Eosinphils 0.3 thou/uL (0.0-0.7); #Lymphocytes 0.7 thou/uL (1.20-3.40); #Monocytes 0.3 thou/uL (0.11-0.59); %Eosinophils 6.4 % (0.0-10.0); %Lymphocytes 17.2 % (21.0-51.0); %Monocytes 6.1 % (0.0-10.0); %Neutrophils 70.2 % (42.0-75.0); Hemoglobin 7.3 g/dL (12.0-16.0); Mean Corpuscular Hemoglobin 30.5 pg (27.0-31.0); Mean Corpuscular Volume 92.7 fL (78.0-98.0); Mean Platelet Volume 8.9 fL (7.4-10.4); Platelet Count 141 thou/uL (130-400); RBC Distribution Width 17.3 % (11.5-14.5); Red Blood Cell (RBC) Count 2.38 mill/uL (4.20-5.40); White Blood Cell (WBC) Count 4.3 thou/uL (4.8-10.8)
[2018-10-04 07:43] LABS: Anion Gap 11 mmol/L (10-20); BUN (Urea Nitrogen) 11 mg/dL (9.8-20.1); Calc. Creatinine Clearance 87 mL/min (70-130); Calcium 8.8 mg/dL (7.8-10.44); Carbon Dioxide 19 mmol/L (23-31); Chloride 116 mmol/L (98-107); Estimated GFR-MDRD 66; Glucose 109 mg/dL (80-115); Sodium 143 mmol/L (136-145)
[2018-10-04 07:45] LABS: Potassium 2.6 mmol/L (3.5-5.1)
[2018-10-04] MEDS: Saccharomyces boulardii 250 MG CAP PO SCH (09:37)
[2018-10-04] MEDS: Heparin 5,000 UNITS/ML VIAL SC SCH ×2 (09:37→20:11)
[2018-10-04] MEDS: Famotidine 20 MG TAB PO SCH (09:37)
[2018-10-04] MEDS: Potassium Chloride 20 MEQ TAB PO SCH ×3 (09:37→20:11)
--- NOTE | 2018-10-04 11:08 | PDOC.PN ---
- Subjective Encounter Start Date: 10/04/18 Encounter Start Time: 08:00 -: old records requested/rev Patient seen and examined. No new complaints. No overnight events - Objective Resuscitation Status - Order Detail: 10/01/18 22:25 Resuscitation Status Routine Resuscitation Status: FULL: Full Resuscitation MAR Reviewed: Yes Vital Signs & Weight: Vital Signs (12 hours) Temp Pulse Resp BP Pulse Ox 10/04/18 07:50 98.1 F 100 18 147/100 H 100 10/04/18 04:30 97 134/61 10/04/18 04:00 100.3 F H 103 H 22 H 96 Weight Admit Weight 208 lb 4.8 oz Weight 211 lb 8 oz I&O: 10/03/18 10/04/18 10/05/18 06:59 06:59 06:59 Intake Total 1540 840 Output Total 650 Balance 890 840 Result Diagrams: 10/04/18 07:21 10/04/18 07:21 Additional Labs: Accuchecks 10/04/18 10/03/18 10/03/18 05:37 20:09 18:04 POC Glucose 104 129 H 83 10/03/18 10/03/18 15:26 11:42 POC Glucose 156 H 56 L* EKG Reviewed by me: Yes (nsr) Phys Exam - Physical Examination Constitutional: NAD HEENT: PERRLA, moist MMs, sclera anicteric Neck: no JVD, supple Respiratory: no wheezing, no rales, no rhonchi Cardiovascular: RRR, no significant murmur, no rub tachycardia Gastrointestinal: soft, non-tender, no distention, positive bowel sounds Musculoskeletal: no edema, pulses present Neurological: non-focal, moves all 4 limbs Lymphatic: no nodes Psychiatric: normal affect Skin: no rash, normal turgor Dx/Plan (1) Acute worsening of stage 3 chronic kidney disease Code(s): N18.3 - CHRONIC KIDNEY DISEASE, STAGE 3 (MODERATE) Status: Acute (2) Hypoglycemia associated with type 2 diabetes mellitus Code(s): E11.649 - TYPE 2 DIABETES MELLITUS WITH HYPOGLYCEMIA WITHOUT COMA Status: Acute (3) Sepsis with acute organ dysfunction Code(s): A41.9 - SEPSIS, UNSPECIFIED ORGANISM; R65.20 - SEVERE SEPSIS WITHOUT SEPTIC SHOCK Status: Acute (4) UTI (urinary tract infection) Status: Acute Comment: (5) Diabetes type 2, controlled Code(s): E11.9 - TYPE 2 DIABETES MELLITUS WITHOUT COMPLICATIONS Status: Chronic Comment: (6) Dyslipidemia Code(s): E78.5 - HYPERLIPIDEMIA, UNSPECIFIED Status: Chronic Comment: (7) Hypertension Code(s): I10 - ESSENTIAL (PRIMARY) HYPERTENSION Status: Chronic Qualifiers: Comment: (8) Morbid obesity with BMI of 40.0-44.9, adult Code(s): E66.01 - MORBID (SEVERE) OBESITY DUE TO EXCESS CALORIES; Z68.41 - BODY MASS INDEX (BMI) 40.0-44.9, ADULT Status: Chronic (9) Multiple myeloma Code(s): C90.00 - MULTIPLE MYELOMA NOT HAVING ACHIEVED REMISSION Status: Chronic Comment: - Plan cont current plan of care, continue antibiotics, PT/OT * continue zosyn * replace potassium * continue Dex 5% with water for hypoglycemia * dc tele * transfer to medical * medication reviewed as below * symptomatic treatment * send urine culture * repeat labs tomorrow * discharge planning. Review of Systems - Review of Systems ENT: negative: Ear Pain, Ear Discharge, Nose Pain, Nose Discharge, Nose Congestion, Mouth Pain, Mouth Swelling, Throat Pain, Throat Swelling, Other Respiratory: negative: Cough, Dry, Shortness of Breath, Hemoptysis, SOB with Excertion, Pleuritic Pain, Sputum, Wheezing Cardiovascular: negative: chest pain, palpitations, orthopnea, paroxysmal nocturnal dyspnea, edema, light headedness, other Gastrointestinal: negative: Nausea, Vomiting, Abdominal Pain, Diarrhea, Constipation, Melena, Hematochezia, Other Genitourinary: negative: Dysuria, Frequency, Incontinence, Hematuria, Retention , Other Musculoskeletal: negative: Neck Pain, Shoulder Pain, Arm Pain, Back Pain, Hand Pain, Leg Pain, Foot Pain, Other Skin: negative: Rash, Lesions, Toi, Bruising, Other - Medications/Allergies Allergies/Adverse Reactions: Allergies Allergy/AdvReac Type Severity Reaction Status Date / Time codeine Allergy Stomach Verified 10/02/18 00:18 Ache hydrocodone [From Vicodin] Allergy Verified 10/02/18 00:18 morphine Allergy Stomach Verified 10/02/18 00:18 Ache Sulfa (Sulfonamide Allergy Stomach Verified 10/02/18 00:18 Antibiotics) Ache tramadol Allergy Stomach Verified 10/02/18 00:18 Ache Medications: Current Medications Acetaminophen (Tylenol) 650 mg PO Q4H PRN PRN Reason: Headache/Fever/Mild Pain (1-3) Last Admin: 10/04/18 04:23 Dose: 650 mg Albuterol/Ipratropium (Duoneb) 3 ml NEB [id number] PRN PRN Reason: SOB &/or Wheezing Bisacodyl (Dulcolax) 10 mg PO DAILYPRN PRN PRN Reason: Constipation Bisacodyl (Dulcolax) 10 mg [place] DAILYPRN PRN PRN Reason: Constipation Calcium Carbonate (Tums) 1,000 mg PO Q4H PRN PRN Reason: Heartburn or Indigestion Dextrose/Water (Dextrose 50%) 25 gm SLOW IVP PRN PRN PRN Reason: Hypoglycemia Last Admin: 10/03/18 14:34 Dose: 25 gm Famotidine (Pepcid) 20 mg PO DAILY [facility] Last Admin: 10/04/18 09:37 Dose: 20 mg Glucagon (Glucagon) 1 mg IM PRN PRN PRN Reason: Hypoglycemia Heparin Sodium (Porcine) (Heparin) 5,000 units SC BID [facility] Last Admin: 10/04/18 09:37 Dose: 5,000 units Piperacillin Sod/Tazobactam (Sod 2.25 gm/ Sodium Chloride) 100 mls @ 200 mls/ hr IVPB 0500,1100,1700,2300 [facility] Last Admin: 10/04/18 04:26 Dose: 100 mls Dextrose/Water (D5w) 1,000 mls @ 0 mls/hr IV .Q0M PRN PRN Reason: Hypoglycemia Dextrose/Water (D5w) 1,000 mls @ 50 mls/hr IV .Q20H [facility] Last Admin: 10/03/18 14:35 Dose: 1,000 mls Insulin Human Lispro (Humalog) 0 units [place] .AGGRESSIVE SLIDING PRN PRN Reason: Aggressive Correctional Scale Last Admin: 10/02/18 17:17 Dose: 9 unit Insulin Human Lispro (Humalog) 0 units [place] .BEDTIME SLIDING SC PRN PRN Reason: Bedtime Correctional Scale Loperamide HCl (Imodium) 2 mg PO PRN PRN PRN Reason: Diarrhea/Loose Stools Ondansetron HCl (Zofran Odt) 4 mg PO Q6H PRN PRN Reason: Nausea/Vomiting Ondansetron HCl (Zofran) 4 mg IVP Q6H PRN PRN Reason: Nausea/Vomiting Potassium Chloride (K-Dur) 40 meq PO TID [facility] Stop: 10/04/18 21:01 Last Admin: 10/04/18 09:37 Dose: 40 meq Saccharomyces Boulardii (Florastor) 250 mg PO DAILY [facility] Last Admin: 10/04/18 09:37 Dose: 250 mg Senna/Docusate Sodium (Senokot S) 2 tab PO BID PRN PRN Reason: Constipation Last Admin: 10/02/18 16:03 Dose: 2 tab Zolpidem Tartrate (Ambien) 5 mg PO HSPRN PRN PRN Reason: Insomnia
[2018-10-04] MEDS: Dextrose 5% in Water 1,000 ML IV SCH ×2 (11:12→16:17)
[2018-10-04] MEDS: Ibuprofen 200 MG TAB PO PRN (14:19)
--- NOTE | 2018-10-04 21:47 | CON ---
DATE OF CONSULTATION: 10/04/2018 REASON FOR CONSULTATION: Fever, weakness, diarrhea, and abnormal urinalysis. HISTORY OF PRESENT ILLNESS: This is a 63-year-old, known to us from multiple prior hospital visits, who has a history of multiple myeloma, prior recurrent salmonella bacteremia and recent admission for management of pneumonia. This last admission prompted a quite extensive workup including bronchoscopy with biopsy under Dr. Galvez's supervision. The opportunistic pathogen workup was all negative and the patient responded to antimicrobial therapy and was discharged on levofloxacin. The CMV and histoplasma, Legionella, Streptococcus pneumoniae and Fungitell assays were negative. The microbiology was not particularly remarkable. She did have Escherichia coli, which had a fairly broad resistance profile retrieved from the urine culture. At this time, she was brought in with cough, which started a few days before admission, mostly dry. She was feeling weak with low-grade temperature elevation, apparently had some diarrhea as well. She did have increased urinary frequency, but denied any dysuria. She had been started on broad-spectrum antimicrobial therapy. Clostridium difficile test has been submitted in stool. Currently, Ms. Huggins is awake. She is a little bit encephalopathic, but she knows she is in [facility], but has a hard time telling me the date. I have to prompt her a lot for answers to questions and she tends to fall asleep from time to time. Denies any headaches. No visual symptoms. No sore throat. Still coughing intermittently, but no sputum production. No chest pain. No abdominal pain. 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 PAST SURGICAL HISTORY: Includes , left knee surgery, tubal ligation, colonoscopy. ALLERGIES: SULFA DRUGS, TRAMADOL, AND VICODIN. SOCIAL HISTORY: Resident of [facility]. Never smoker. FAMILY HISTORY: Noncontributory. MEDICATIONS: Current medications include; 1. Tylenol. 2. DuoNeb. 3. Dulcolax. 4. Tums. 5. Dextrose. 6. Pepcid. 7. Heparin. 8. Motrin. 9. Insulin. 10. Imodium. 11. Zofran. 12. Zosyn. 13. Vancomycin. PHYSICAL EXAMINATION: VITAL SIGNS: T-max 102.9, blood pressure 140/70, pulse 98, respirations 22, O2 saturation 92% on room air. SKIN: She has areas of erosion in the intergluteal region and areas of erosion in the right vulvar region. She has a peripheral IV access and she is urinating in the diaper. HEENT: Ocular movements conjugate. Some periorbital edema. Oral cavity with quite florid oral candidiasis in all the surfaces evaluated. NECK: No jugular venous distention. LUNGS: Coarse rhonchi bilaterally diffusely distributed and a few crackles also diffusely distributed. Some wheezing. HEART: S1 and S2. Regular rate. ABDOMEN: Soft, not distended. No ascites. No bladder distention. EXTREMITIES: No joint inflammatory activity. Trace edema. Pulses 1+ in dorsalis pedis. Plantar responses are flexor. No clonus. She is able to move extremities equally, but is diffusely weak. She is awake, knows her name and knows she is at [facility], could tell me the year after some prompting. Recollection is little bit limited. LABORATORY DATA: White cell count 6.5 and now 4.3, hemoglobin 7.7, MCV 93, platelets are stable at 257 and 141. Initial neutrophil percentage of 40 and bands 23%, and then 51 and 28%. This is a marked elevation in bands compared with previous recent admission. Potassium 2.6, sodium 143, creatinine 1.02. Urinalysis is greater than 50 wbc's. Microbiology thus far, we have pending cultures. IMAGING STUDIES: Include a chest x-ray with no acute intrathoracic disease from October 01. ASSESSMENT: 1. Multiple myeloma. 2. Severe immunosuppression. 3. Oral candidiasis. 4. Likely perineal herpes simplex infection. 5. Respiratory symptoms with exacerbation of cough, mild to moderate hypoxemia. 6. Abnormal urinalysis. DISCUSSION: The patient is immunocompromised and most likely has a multiplicity of infectious problems at the same time. In her case, we noted that she has oral candidiasis and herpes simplex infection which needs to be evaluated with usual PCR test. In addition to that, she probably has a recrudescence of pneumonitis. She has had a negative opportunistic infection workup in the recent past. We will repeat the CT of chest to evaluate the interstitial infiltrates. Continue current broad-spectrum coverage. The Clostridium difficile workup is pending and she needs treatment for the candidiasis and we will give her IV Diflucan for that. We will submit the herpes simplex test before starting treatment for the perineal erosions. Repeat the opportunistic pathogen workup. Job ID: [id number] [facility]
[2018-10-05] MEDS: Piperacillin/Tazobactam 2.25 GM in Sodium Chloride 0.9% 100 ML IVPB SCH ×2 (00:54→05:50)
[2018-10-05] MEDS: Acetaminophen 325 MG TAB PO PRN ×2 (01:18→15:41)
[2018-10-05 08:15] LABS: Anion Gap 13 mmol/L (10-20); BUN (Urea Nitrogen) 8 mg/dL (9.8-20.1); Calc. Creatinine Clearance 80 mL/min (70-130); Calcium 9.2 mg/dL (7.8-10.44); Carbon Dioxide 18 mmol/L (23-31); Chloride 116 mmol/L (98-107); Estimated GFR-MDRD 61; Glucose 127 mg/dL (80-115); Potassium 3.1 mmol/L (3.5-5.1); Sodium 144 mmol/L (136-145)
[2018-10-05 08:36] LABS: Hemoglobin 7.6 g/dL (12.0-16.0); Mean Corpuscular HGB CONC 32.3 g/dL (32.0-36.0); Mean Corpuscular Volume 93.1 fL (78.0-98.0); Mean Platelet Volume 10.2 fL (7.4-10.4); Platelet Count 163 thou/uL (130-400); RBC Distribution Width 17.5 % (11.5-14.5); Red Blood Cell (RBC) Count 2.54 mill/uL (4.20-5.40); White Blood Cell (WBC) Count 5.1 thou/uL (4.8-10.8)
[2018-10-05] MEDS ORDERED: Potassium Chloride 20 MEQ TAB PO SCH (10:00)
[2018-10-05 10:17] LABS: Band 22 % (5-11); Eosinophils 2 % (0-10); Lymphocytes 19 % (21-51); MDiff Complete? YES; Monocytes 3 % (0-10); Neutrophil 53 % (42-75); Polychromasia SLIGHT = 2-3 cells (100X) (0-2/hpf); Reactive Lymphocytes 1 % (0-10)
[2018-10-05] MEDS: Heparin 5,000 UNITS/ML VIAL SC SCH ×2 (10:53→21:13)
[2018-10-05] MEDS: Fluconazole In NaCl,Iso-Osm 100 MG IVPB SCH (10:53)
[2018-10-05] MEDS: Vancomycin HCl 25 MG/ML Oral PO SCH ×4 (10:53→21:13)
[2018-10-05] MEDS: Saccharomyces boulardii 250 MG CAP PO SCH ×2 (10:54→21:13)
[2018-10-05] MEDS: Famotidine 20 MG TAB PO SCH (10:54)
[2018-10-05] MEDS: Oseltamivir 75 MG CAP PO SCH ×2 (10:54→21:13)
--- NOTE | 2018-10-05 12:05 | PDOC.PN ---
- Subjective Encounter Start Date: 10/05/18 Encounter Start Time: 07:00 Patient seen and examined. pt is very weak, No overnight events - Objective Resuscitation Status - Order Detail: 10/01/18 22:25 Resuscitation Status Routine Resuscitation Status: FULL: Full Resuscitation MAR Reviewed: Yes Vital Signs & Weight: Vital Signs (12 hours) Temp Pulse Resp BP Pulse Ox 10/05/18 09:10 98.7 F 107 H 26 H 136/71 94 L 10/05/18 06:00 105 H 20 96 10/05/18 04:55 95 10/05/18 04:53 99.4 F 123 H 20 131/75 88 L 10/05/18 03:55 96 10/05/18 01:15 99.8 F H 100 22 H 96 Weight Admit Weight 208 lb 4.8 oz Weight 211 lb 8 oz I&O: 10/04/18 10/05/18 10/06/18 06:59 06:59 06:59 Intake Total 840 950 Balance 840 950 Result Diagrams: 10/05/18 04:51 10/05/18 04:51 Additional Labs: Accuchecks 10/05/18 10/04/18 10/04/18 05:54 20:10 16:19 POC Glucose 130 H 117 H 96 10/03/18 14:12 POC Glucose 53 L* Phys Exam - Physical Examination Constitutional: NAD HEENT: PERRLA, moist MMs, sclera anicteric Neck: no JVD, supple Respiratory: no wheezing, no rales, no rhonchi Cardiovascular: RRR, no significant murmur, no rub Gastrointestinal: soft, non-tender, no distention, positive bowel sounds Musculoskeletal: no edema, pulses present Neurological: non-focal, normal sensation Lymphatic: no nodes Psychiatric: normal affect Skin: normal turgor Deviation from normal: see wound care finding note for her skin rash Dx/Plan (1) Acute worsening of stage 3 chronic kidney disease Code(s): N18.3 - CHRONIC KIDNEY DISEASE, STAGE 3 (MODERATE) Status: Acute (2) Hypoglycemia associated with type 2 diabetes mellitus Code(s): E11.649 - TYPE 2 DIABETES MELLITUS WITH HYPOGLYCEMIA WITHOUT COMA Status: Acute (3) Sepsis with acute organ dysfunction Code(s): A41.9 - SEPSIS, UNSPECIFIED ORGANISM; R65.20 - SEVERE SEPSIS WITHOUT SEPTIC SHOCK Status: Acute (4) UTI (urinary tract infection) Status: Ruled-out Comment: (5) Diabetes type 2, controlled Code(s): E11.9 - TYPE 2 DIABETES MELLITUS WITHOUT COMPLICATIONS Status: Chronic Comment: (6) Dyslipidemia Code(s): E78.5 - HYPERLIPIDEMIA, UNSPECIFIED Status: Chronic Comment: (7) Hypertension Code(s): I10 - ESSENTIAL (PRIMARY) HYPERTENSION Status: Chronic Qualifiers: Comment: (8) Morbid obesity with BMI of 40.0-44.9, adult Code(s): E66.01 - MORBID (SEVERE) OBESITY DUE TO EXCESS CALORIES; Z68.41 - BODY MASS INDEX (BMI) 40.0-44.9, ADULT Status: Chronic (9) Multiple myeloma Code(s): C90.00 - MULTIPLE MYELOMA NOT HAVING ACHIEVED REMISSION Status: Chronic Comment: (10) Influenza A Code(s): J10.1 - FLU DUE TO OTH IDENT INFLUENZA VIRUS W OTH RESP MANIFEST Status: Acute (11) Clostridium difficile infection Code(s): B96.89 - OTH BACTERIAL AGENTS THE CAUSE OF DISEASES CLASSD [id number] Status: Acute (12) Hypokalemia Code(s): E87.6 - HYPOKALEMIA Status: Acute Comment: (13) Anemia, normocytic normochromic Code(s): D64.9 - ANEMIA, UNSPECIFIED Status: Chronic - Plan cont current plan of care, continue antibiotics, PT/OT, social worker * replace potassium today * DC zosyn and IV vancomycin * start Tamiflu for influenza A * start oral vancomycin for c-diff infection * contact and droplet precaution * 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 Review of Systems - Review of Systems ENT: negative: Ear Pain, Ear Discharge, Nose Pain, Nose Discharge, Nose Congestion, Mouth Pain, Mouth Swelling, Throat Pain, Throat Swelling, Other Respiratory: negative: Cough, Dry, Shortness of Breath, Hemoptysis, SOB with Excertion, Pleuritic Pain, Sputum, Wheezing Cardiovascular: negative: chest pain, palpitations, orthopnea, paroxysmal nocturnal dyspnea, edema, light headedness, other Gastrointestinal: negative: Nausea, Vomiting, Abdominal Pain, Diarrhea, Constipation, Melena, Hematochezia, Other Genitourinary: negative: Dysuria, Frequency, Incontinence, Hematuria, Retention , Other Musculoskeletal: negative: Neck Pain, Shoulder Pain, Arm Pain, Back Pain, Hand Pain, Leg Pain, Foot Pain, Other - Medications/Allergies Allergies/Adverse Reactions: Allergies Allergy/AdvReac Type Severity Reaction Status Date / Time codeine Allergy Stomach Verified 10/02/18 00:18 Ache hydrocodone [From Vicodin] Allergy Verified 10/02/18 00:18 morphine Allergy Stomach Verified 10/02/18 00:18 Ache Sulfa (Sulfonamide Allergy Stomach Verified 10/02/18 00:18 Antibiotics) Ache tramadol Allergy Stomach Verified 10/02/18 00:18 Ache Medications: Current Medications Acetaminophen (Tylenol) 650 mg PO Q4H PRN PRN Reason: Headache/Fever/Mild Pain (1-3) Last Admin: 10/05/18 01:18 Dose: 650 mg Albuterol/Ipratropium (Duoneb) 3 ml NEB [id number] PRN PRN Reason: SOB &/or Wheezing Bisacodyl (Dulcolax) 10 mg PO DAILYPRN PRN PRN Reason: Constipation Bisacodyl (Dulcolax) 10 mg [place] DAILYPRN PRN PRN Reason: Constipation Calcium Carbonate (Tums) 1,000 mg PO Q4H PRN PRN Reason: Heartburn or Indigestion Dextrose/Water (Dextrose 50%) 25 gm SLOW IVP PRN PRN PRN Reason: Hypoglycemia Last Admin: 10/03/18 14:34 Dose: 25 gm Famotidine (Pepcid) 20 mg PO DAILY [facility] Last Admin: 10/05/18 10:54 Dose: 20 mg Glucagon (Glucagon) 1 mg IM PRN PRN PRN Reason: Hypoglycemia Heparin Sodium (Porcine) (Heparin) 5,000 units SC BID [facility] Last Admin: 10/05/18 10:53 Dose: 5,000 units Dextrose/Water (D5w) 1,000 mls @ 0 mls/hr IV .Q0M PRN PRN Reason: Hypoglycemia Fluconazole/Sodium Chloride 100 mg/ Miscellaneous Medication 50 mls @ 100 mls/ hr IVPB DAILY [facility] Last Admin: 10/05/18 10:53 Dose: 50 mls Ibuprofen (Motrin) 400 mg PO Q6H PRN PRN Reason: Pain Last Admin: 10/04/18 14:19 Dose: 400 mg Insulin Human Lispro (Humalog) 0 units SC .AGGRESSIVE SLIDING PRN PRN Reason: Aggressive Correctional Scale Last Admin: 10/02/18 17:17 Dose: 9 unit Insulin Human Lispro (Humalog) 0 units SC .BEDTIME SLIDING SC PRN PRN Reason: Bedtime Correctional Scale Loperamide HCl (Imodium) 2 mg PO PRN PRN PRN Reason: Diarrhea/Loose Stools Ondansetron HCl (Zofran Odt) 4 mg PO Q6H PRN PRN Reason: Nausea/Vomiting Ondansetron HCl (Zofran) 4 mg IVP Q6H PRN PRN Reason: Nausea/Vomiting Last Admin: 10/05/18 01:18 Dose: 4 mg Oseltamivir Phosphate (Tamiflu) 75 mg PO BID [facility] Stop: 10/09/18 21:01 Last Admin: 10/05/18 10:54 Dose: 75 mg Saccharomyces Boulardii (Florastor) 250 mg PO BID [facility] Last Admin: 10/05/18 10:54 Dose: 250 mg Senna/Docusate Sodium (Senokot S) 2 tab PO BID PRN PRN Reason: Constipation Last Admin: 10/02/18 16:03 Dose: 2 tab Sodium Chloride (Flush - Normal Saline) 10 ml IVF Q12HR [facility] Last Admin: 10/05/18 10:54 Dose: 10 ml Sodium Chloride (Flush - Normal Saline) 10 ml IVF PRN PRN PRN Reason: Saline Flush Vancomycin HCl (First Vancomycin) 125 mg PO QID [facility] Last Admin: 10/05/18 10:53 Dose: 125 mg Zolpidem Tartrate (Ambien) 5 mg PO HSPRN PRN PRN Reason: Insomnia
[2018-10-05] MEDS: Diabetic Tussin 200 MG/10 ML UDCUP PO PRN (15:24)
[2018-10-05] MEDS: Dextrose 5% in Water 1,000 ML IV SCH (16:10)
[2018-10-05] MEDS ORDERED: Furosemide 40 MG/4 ML VIAL ONE (16:13)
--- NOTE | 2018-10-05 17:14 | RAD ---
SINGLE VIEW CHEST: Date: 10/05/18 COMPARISON: 10/01/18. HISTORY: Shortness of breath. FINDINGS: Single view of the chest shows an enlarged but stable cardiomediastinal silhouette. There is no evide nce of consolidation, mass, or pleural effusion. Degenerative changes are seen in the spine. IMPRESSION: No evidence of acute cardiopulmonary disease. POS: [facility]
[2018-10-05] MEDS: Ibuprofen 200 MG TAB PO PRN (21:13)
[2018-10-06 05:32] LABS: Anion Gap 10 mmol/L (10-20); BUN (Urea Nitrogen) 8 mg/dL (9.8-20.1); Calc. Creatinine Clearance 80 mL/min (70-130); Calcium 9.1 mg/dL (7.8-10.44); Carbon Dioxide 24 mmol/L (23-31); Chloride 113 mmol/L (98-107); Estimated GFR-MDRD 61; Glucose 121 mg/dL (80-115); Sodium 144 mmol/L (136-145)
[2018-10-06 05:37] LABS: Potassium 2.7 mmol/L (3.5-5.1)
[2018-10-06 05:43] LABS: Band 14 % (5-11); Eosinophils 1 % (0-10); Hemoglobin 7.5 g/dL (12.0-16.0); Lymphocytes 22 % (21-51); MDiff Complete? YES; Mean Corpuscular HGB CONC 33.5 g/dL (32.0-36.0); Mean Corpuscular Hemoglobin 31.3 pg (27.0-31.0); Mean Corpuscular Volume 93.6 fL (78.0-98.0); Mean Platelet Volume 9.8 fL (7.4-10.4); Monocytes 25 % (0-10); Neutrophil 38 % (42-75); Nucleated RBC 1 % (0); Platelet Count 129 thou/uL (130-400); RBC Distribution Width 17.5 % (11.5-14.5); Red Blood Cell (RBC) Count 2.39 mill/uL (4.20-5.40); Tear Drops SLIGHT = 2-5 cells (100X) (0-1/hpf); White Blood Cell (WBC) Count 3.2 thou/uL (4.8-10.8)
[2018-10-06] MEDS ORDERED: Potassium Chloride 20 MEQ TAB PO SCH (06:15)
[2018-10-06 07:41] LABS: Magnesium 1.2 mg/dL (1.6-2.6); Phosphorus 3.9 mg/dL (2.3-4.7)
[2018-10-06] MEDS: Vancomycin HCl 25 MG/ML Oral PO SCH ×4 (08:59→21:03)
[2018-10-06] MEDS: Fluconazole In NaCl,Iso-Osm 100 MG IVPB SCH (08:59)
[2018-10-06] MEDS: Potassium Chloride 20 MEQ TAB PO SCH ×2 (09:00→16:49)
[2018-10-06] MEDS: Oseltamivir 75 MG CAP PO SCH ×2 (09:00→21:04)
[2018-10-06] MEDS: Famotidine 20 MG TAB PO SCH (09:00)
[2018-10-06] MEDS: Saccharomyces boulardii 250 MG CAP PO SCH ×2 (09:00→21:03)
[2018-10-06] MEDS: Heparin 5,000 UNITS/ML VIAL SC SCH ×2 (09:00→21:03)
[2018-10-06] MEDS ORDERED: Magnesium Sulfate 4 GM in Sodium Chloride 0.9% 250 ML 250 ML IVPB SCH (10:30)
[2018-10-06] MEDS: Diabetic Tussin 200 MG/10 ML UDCUP PO PRN ×2 (11:20→22:39)
--- NOTE | 2018-10-06 13:20 | PDOC.PN ---
- Subjective Encounter Start Date: 10/06/18 Encounter Start Time: 07:00 this morning pt is doing ok, has less dyspnea, no fever, has poor po intake, she is very weak, no diarrhoea, has cough - Objective Resuscitation Status - Order Detail: 10/01/18 22:25 Resuscitation Status Routine Resuscitation Status: FULL: Full Resuscitation MAR Reviewed: Yes Vital Signs & Weight: Vital Signs (12 hours) Temp Pulse Resp BP Pulse Ox 10/06/18 08:00 98.6 F 77 26 H 167/80 H 94 L 10/06/18 04:00 97.9 F 84 16 162/87 H 96 Weight Admit Weight 208 lb 4.8 oz Weight 211 lb 8 oz I&O: 10/05/18 10/06/18 10/07/18 06:59 06:59 06:59 Intake Total 950 Balance 950 Result Diagrams: 10/06/18 04:49 10/06/18 04:49 Additional Labs: Accuchecks 10/05/18 10/05/18 10/05/18 20:46 17:49 15:31 POC Glucose 79 112 H 81 Radiology Reviewed by me: Yes (chest xray reviewed) Phys Exam - Physical Examination Constitutional: NAD HEENT: PERRLA, moist MMs, sclera anicteric Neck: no JVD, supple Respiratory: wheezing present Cardiovascular: RRR, no significant murmur, no rub Gastrointestinal: soft, non-tender, no distention, positive bowel sounds Musculoskeletal: no edema, pulses present Neurological: non-focal, normal sensation Lymphatic: no nodes Psychiatric: normal affect Skin: no rash, normal turgor Dx/Plan (1) Acute worsening of stage 3 chronic kidney disease Code(s): N18.3 - CHRONIC KIDNEY DISEASE, STAGE 3 (MODERATE) Status: Acute (2) Hypoglycemia associated with type 2 diabetes mellitus Code(s): E11.649 - TYPE 2 DIABETES MELLITUS WITH HYPOGLYCEMIA WITHOUT COMA Status: Acute (3) Sepsis with acute organ dysfunction Code(s): A41.9 - SEPSIS, UNSPECIFIED ORGANISM; R65.20 - SEVERE SEPSIS WITHOUT SEPTIC SHOCK Status: Acute (4) UTI (urinary tract infection) Status: Ruled-out Comment: (5) Diabetes type 2, controlled Code(s): E11.9 - TYPE 2 DIABETES MELLITUS WITHOUT COMPLICATIONS Status: Chronic Comment: (6) Dyslipidemia Code(s): E78.5 - HYPERLIPIDEMIA, UNSPECIFIED Status: Chronic Comment: (7) Hypertension Code(s): I10 - ESSENTIAL (PRIMARY) HYPERTENSION Status: Chronic Qualifiers: Comment: (8) Morbid obesity with BMI of 40.0-44.9, adult Code(s): E66.01 - MORBID (SEVERE) OBESITY DUE TO EXCESS CALORIES; Z68.41 - BODY MASS INDEX (BMI) 40.0-44.9, ADULT Status: Chronic (9) Multiple myeloma Code(s): C90.00 - MULTIPLE MYELOMA NOT HAVING ACHIEVED REMISSION Status: Chronic Comment: (10) Influenza A Code(s): J10.1 - FLU DUE TO OTH IDENT INFLUENZA VIRUS W OTH RESP MANIFEST Status: Acute (11) Clostridium difficile infection Code(s): B96.89 - OTH BACTERIAL AGENTS THE CAUSE OF DISEASES CLASSD ELSWHR Status: Acute (12) Hypokalemia Code(s): E87.6 - HYPOKALEMIA Status: Acute Comment: (13) Anemia, normocytic normochromic Code(s): D64.9 - ANEMIA, UNSPECIFIED Status: Chronic - Plan cont current plan of care, continue antibiotics * continue tamiflu * continue oral vancomycin * replace potassium and magnesium * medication reviewed as below * symptomatic treatment. 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 negative: fever, chills, sweats, malaise, other ENT: negative: Ear Pain, Ear Discharge, Nose Pain, Nose Discharge, Nose Congestion, Mouth Pain, Mouth Swelling, Throat Pain, Throat Swelling, Other Respiratory: Cough, Shortness of Breath. negative: Dry, Hemoptysis, SOB with Excertion, Pleuritic Pain, Sputum, Wheezing Cardiovascular: negative: chest pain, palpitations, orthopnea, paroxysmal nocturnal dyspnea, edema, light headedness, other Gastrointestinal: negative: Nausea, Vomiting, Abdominal Pain, Diarrhea, Constipation, Melena, Hematochezia, Other Genitourinary: negative: Dysuria, Frequency, Incontinence, Hematuria, Retention , Other Musculoskeletal: negative: Neck Pain, Shoulder Pain, Arm Pain, Back Pain, Hand Pain, Leg Pain, Foot Pain, Other Skin: negative: Rash, Lesions, Toi, Bruising, Other - Medications/Allergies Allergies/Adverse Reactions: Allergies Allergy/AdvReac Type Severity Reaction Status Date / Time codeine Allergy Stomach Verified 10/02/18 00:18 Ache hydrocodone [From Vicodin] Allergy Verified 10/02/18 00:18 morphine Allergy Stomach Verified 10/02/18 00:18 Ache Sulfa (Sulfonamide Allergy Stomach Verified 10/02/18 00:18 Antibiotics) Ache tramadol Allergy Stomach Verified 10/02/18 00:18 Ache Medications: Current Medications Acetaminophen (Tylenol) 650 mg PO Q4H PRN PRN Reason: Headache/Fever/Mild Pain (1-3) Last Admin: 10/05/18 15:41 Dose: 650 mg Albuterol/Ipratropium (Duoneb) 3 ml NEB [id number] PRN PRN Reason: SOB &/or Wheezing Bisacodyl (Dulcolax) 10 mg PO DAILYPRN PRN PRN Reason: Constipation Bisacodyl (Dulcolax) 10 mg [place] DAILYPRN PRN PRN Reason: Constipation Calcium Carbonate (Tums) 1,000 mg PO Q4H PRN PRN Reason: Heartburn or Indigestion Dextrose/Water (Dextrose 50%) 25 gm SLOW IVP PRN PRN PRN Reason: Hypoglycemia Last Admin: 10/03/18 14:34 Dose: 25 gm Famotidine (Pepcid) 20 mg PO DAILY [facility] Last Admin: 10/06/18 09:00 Dose: 20 mg Glucagon (Glucagon) 1 mg IM PRN PRN PRN Reason: Hypoglycemia Guaifenesin (Robitussin Sf) 300 mg PO Q6H PRN PRN Reason: Cough Last Admin: 10/06/18 11:20 Dose: 300 mg Heparin Sodium (Porcine) (Heparin) 5,000 units SC BID [facility] Last Admin: 10/06/18 09:00 Dose: 5,000 units Dextrose/Water (D5w) 1,000 mls @ 0 mls/hr IV .Q0M PRN PRN Reason: Hypoglycemia Fluconazole/Sodium Chloride 100 mg/ Miscellaneous Medication 50 mls @ 100 mls/ hr IVPB DAILY [facility] Last Admin: 10/06/18 08:59 Dose: 50 mls Magnesium Sulfate 4 gm/ Sodium (Chloride) 258 mls @ 86 mls/hr IVPB NOW [facility] Stop: 10/06/18 13:29 Last Admin: 10/06/18 11:20 Dose: 258 mls Ibuprofen (Motrin) 400 mg PO Q6H PRN PRN Reason: Pain Last Admin: 10/05/18 21:13 Dose: 400 mg Insulin Human Lispro (Humalog) 0 units SC .AGGRESSIVE SLIDING PRN PRN Reason: Aggressive Correctional Scale Last Admin: 10/02/18 17:17 Dose: 9 unit Insulin Human Lispro (Humalog) 0 units SC .BEDTIME SLIDING SC PRN PRN Reason: Bedtime Correctional Scale Loperamide HCl (Imodium) 2 mg PO PRN PRN PRN Reason: Diarrhea/Loose Stools Ondansetron HCl (Zofran Odt) 4 mg PO Q6H PRN PRN Reason: Nausea/Vomiting Ondansetron HCl (Zofran) 4 mg IVP Q6H PRN PRN Reason: Nausea/Vomiting Last Admin: 10/05/18 01:18 Dose: 4 mg Oseltamivir Phosphate (Tamiflu) 75 mg PO BID [facility] Stop: 10/09/18 21:01 Last Admin: 10/06/18 09:00 Dose: 75 mg Potassium Chloride (K-Dur) 40 meq PO BID[facility] Last Admin: 10/06/18 09:00 Dose: 40 meq Saccharomyces Boulardii (Florastor) 250 mg PO BID [facility] Last Admin: 10/06/18 09:00 Dose: 250 mg Senna/Docusate Sodium (Senokot S) 2 tab PO BID PRN PRN Reason: Constipation Last Admin: 10/02/18 16:03 Dose: 2 tab Sodium Chloride (Flush - Normal Saline) 10 ml IVF Q12HR [facility] Last Admin: 10/06/18 08:59 Dose: 10 ml Sodium Chloride (Flush - Normal Saline) 10 ml IVF PRN PRN PRN Reason: Saline Flush Vancomycin HCl (First Vancomycin) 125 mg PO QID [facility] Last Admin: 10/06/18 12:29 Dose: 125 mg Zolpidem Tartrate (Ambien) 5 mg PO HSPRN PRN PRN Reason: Insomnia
[2018-10-07 04:37] LABS: Anion Gap 10 mmol/L (10-20); BUN (Urea Nitrogen) 6 mg/dL (9.8-20.1); Calc. Creatinine Clearance 106 mL/min (70-130); Calcium 8.7 mg/dL (7.8-10.44); Carbon Dioxide 21 mmol/L (23-31); Chloride 115 mmol/L (98-107); Estimated GFR-MDRD 84; Glucose 94 mg/dL (80-115); Magnesium 2.1 mg/dL (1.6-2.6); Phosphorus 2.2 mg/dL (2.3-4.7); Potassium 3.1 mmol/L (3.5-5.1); Sodium 143 mmol/L (136-145)
[2018-10-07 05:05] LABS: Band 9 % (5-11); Eosinophils 1 % (0-10); Hemoglobin 7.5 g/dL (12.0-16.0); Lymphocytes 48 % (21-51); MDiff Complete? YES; Mean Corpuscular HGB CONC 32.5 g/dL (32.0-36.0); Mean Corpuscular Hemoglobin 30.3 pg (27.0-31.0); Mean Corpuscular Volume 93.3 fL (78.0-98.0); Mean Platelet Volume 9.3 fL (7.4-10.4); Monocytes 16 % (0-10); Neutrophil 26 % (42-75); Nucleated RBC 1 % (0); Platelet Count 149 thou/uL (130-400); RBC Distribution Width 17.5 % (11.5-14.5); Red Blood Cell (RBC) Count 2.48 mill/uL (4.20-5.40); White Blood Cell (WBC) Count 2.9 thou/uL (4.8-10.8)
[2018-10-07] MEDS ORDERED: Potassium Phosphate 30 MMOL in Sodium Chloride 0.9% 500 ML IVPB SCH (07:30)
[2018-10-07] MEDS: Vancomycin HCl 25 MG/ML Oral PO SCH ×4 (10:27→21:54)
[2018-10-07] MEDS: Heparin 5,000 UNITS/ML VIAL SC SCH ×2 (10:29→21:54)
--- NOTE | 2018-10-07 10:29 | PDOC.PN ---
- Subjective Encounter Start Date: 10/07/18 Encounter Start Time: 07:00 Patient seen and examined. pt is wheezing and has cough, No overnight events - Objective Resuscitation Status - Order Detail: 10/01/18 22:25 Resuscitation Status Routine Resuscitation Status: FULL: Full Resuscitation MAR Reviewed: Yes Vital Signs & Weight: Vital Signs (12 hours) Temp Pulse Resp BP Pulse Ox 10/07/18 08:05 99.2 F 97 16 177/92 H 99 10/07/18 04:00 98.2 F 106 H 16 167/85 H 98 10/07/18 00:00 98.4 F 102 H 16 141/76 H 94 L Weight Admit Weight 208 lb 4.8 oz Weight 211 lb 8 oz I&O: 10/06/18 10/07/18 10/08/18 06:59 06:59 06:59 Intake Total 960 Balance 960 Result Diagrams: 10/07/18 04:04 10/07/18 04:04 Additional Labs: Accuchecks 10/06/18 10/06/18 10/06/18 21:12 15:33 12:46 POC Glucose 83 99 110 Phys Exam - Physical Examination Constitutional: NAD HEENT: PERRLA, moist MMs, sclera anicteric Neck: no JVD, supple Respiratory: no rales, wheezing present Cardiovascular: RRR, no significant murmur, no rub Gastrointestinal: soft, non-tender, no distention, positive bowel sounds Musculoskeletal: no edema, pulses present Neurological: non-focal, normal sensation Lymphatic: no nodes Psychiatric: normal affect Skin: no rash, normal turgor Dx/Plan (1) Acute worsening of stage 3 chronic kidney disease Code(s): N18.3 - CHRONIC KIDNEY DISEASE, STAGE 3 (MODERATE) Status: Acute (2) Hypoglycemia associated with type 2 diabetes mellitus Code(s): E11.649 - TYPE 2 DIABETES MELLITUS WITH HYPOGLYCEMIA WITHOUT COMA Status: Acute (3) Sepsis with acute organ dysfunction Code(s): A41.9 - SEPSIS, UNSPECIFIED ORGANISM; R65.20 - SEVERE SEPSIS WITHOUT SEPTIC SHOCK Status: Acute (4) UTI (urinary tract infection) Status: Ruled-out Comment: (5) Diabetes type 2, controlled Code(s): E11.9 - TYPE 2 DIABETES MELLITUS WITHOUT COMPLICATIONS Status: Chronic Comment: (6) Dyslipidemia Code(s): E78.5 - HYPERLIPIDEMIA, UNSPECIFIED Status: Chronic Comment: (7) Hypertension Code(s): I10 - ESSENTIAL (PRIMARY) HYPERTENSION Status: Chronic Qualifiers: Comment: (8) Morbid obesity with BMI of 40.0-44.9, adult Code(s): E66.01 - MORBID (SEVERE) OBESITY DUE TO EXCESS CALORIES; Z68.41 - BODY MASS INDEX (BMI) 40.0-44.9, ADULT Status: Chronic (9) Multiple myeloma Code(s): C90.00 - MULTIPLE MYELOMA NOT HAVING ACHIEVED REMISSION Status: Chronic Comment: (10) Influenza A Code(s): J10.1 - FLU DUE TO OTH IDENT INFLUENZA VIRUS W OTH RESP MANIFEST Status: Acute (11) Clostridium difficile infection Code(s): B96.89 - OTH BACTERIAL AGENTS THE CAUSE OF DISEASES CLASSD ELSWHR Status: Acute (12) Hypokalemia Code(s): E87.6 - HYPOKALEMIA Status: Acute Comment: (13) Anemia, normocytic normochromic Code(s): D64.9 - ANEMIA, UNSPECIFIED Status: Chronic (14) Acute bronchitis Code(s): J20.9 - ACUTE BRONCHITIS, UNSPECIFIED Status: Acute (15) Hypophosphatemia Code(s): E83.39 - OTHER DISORDERS OF PHOSPHORUS METABOLISM Status: Acute - Plan cont current plan of care, plan discussed w/ family, continue antibiotics, PT/OT , social insurance adviser, respiratory therapy * spoke with oncology, no plan for any further chemo * spoke with son and updated plan of care and condition, code status discussed and wanted to be full code * will add solumedrol 40 mg iv q 8 hourly * add duoneb q 6 hourly * continue diflucan * continue oral vancomycin * continue oral tamiflu * replace electrolytes * medication reviewed as below * symptomatic treatment. * not ready for discharge and high risk for readmission Review of Systems - Review of Systems Constitutional: weakness. negative: fever, chills, sweats, malaise, other Respiratory: Cough, Shortness of Breath, Wheezing. negative: Dry, Hemoptysis, SOB with Excertion, Pleuritic Pain, Sputum Cardiovascular: negative: chest pain, palpitations, orthopnea, paroxysmal nocturnal dyspnea, edema, light headedness, other Gastrointestinal: negative: Nausea, Vomiting, Abdominal Pain, Diarrhea, Constipation, Melena, Hematochezia, Other Genitourinary: negative: Dysuria, Frequency, Incontinence, Hematuria, Retention , Other Musculoskeletal: negative: Neck Pain, Shoulder Pain, Arm Pain, Back Pain, Hand Pain, Leg Pain, Foot Pain, Other Skin: negative: Rash, Lesions, Toi, Bruising, Other - Medications/Allergies Allergies/Adverse Reactions: Allergies Allergy/AdvReac Type Severity Reaction Status Date / Time codeine Allergy Stomach Verified 10/02/18 00:18 Ache hydrocodone [From Vicodin] Allergy Verified 10/02/18 00:18 morphine Allergy Stomach Verified 10/02/18 00:18 Ache Sulfa (Sulfonamide Allergy Stomach Verified 10/02/18 00:18 Antibiotics) Ache tramadol Allergy Stomach Verified 10/02/18 00:18 Ache Medications: Current Medications Acetaminophen (Tylenol) 650 mg PO Q4H PRN PRN Reason: Headache/Fever/Mild Pain (1-3) Last Admin: 10/05/18 15:41 Dose: 650 mg Albuterol/Ipratropium (Duoneb) 3 ml NEB [id number] PRN PRN Reason: SOB &/or Wheezing Albuterol/Ipratropium (Duoneb) 3 ml NEB [id number] [facility] Allopurinol (Zyloprim) 300 mg PO DAILY [facility] Bisacodyl (Dulcolax) 10 mg PO DAILYPRN PRN PRN Reason: Constipation Bisacodyl (Dulcolax) 10 mg [place] DAILYPRN PRN PRN Reason: Constipation Calcium Carbonate (Tums) 1,000 mg PO Q4H PRN PRN Reason: Heartburn or Indigestion Carvedilol (Coreg) 25 mg PO BID [facility] Dextrose/Water (Dextrose 50%) 25 gm SLOW IVP PRN PRN PRN Reason: Hypoglycemia Last Admin: 10/03/18 14:34 Dose: 25 gm Famotidine (Pepcid) 20 mg PO DAILY [facility] Last Admin: 10/06/18 09:00 Dose: 20 mg Fish Oil (Fish Oil) 1,000 mg PO DAILY [facility] Furosemide (Lasix) 40 mg PO DAILY [facility] Glucagon (Glucagon) 1 mg IM PRN PRN PRN Reason: Hypoglycemia Guaifenesin (Robitussin Sf) 300 mg PO Q6H PRN PRN Reason: Cough Last Admin: 10/06/18 22:39 Dose: 300 mg Heparin Sodium (Porcine) (Heparin) 5,000 units SC BID [facility] Last Admin: 10/06/18 21:03 Dose: 5,000 units Dextrose/Water (D5w) 1,000 mls @ 0 mls/hr IV .Q0M PRN PRN Reason: Hypoglycemia Fluconazole/Sodium Chloride 100 mg/ Miscellaneous Medication 50 mls @ 100 mls/ hr IVPB DAILY [facility] Last Admin: 10/06/18 08:59 Dose: 50 mls Potassium Phosphate 30 mmol/ (Sodium Chloride) 510 mls @ 83.3 mls/hr IVPB ONE [facility] Stop: 10/07/18 14:00 Ibuprofen (Motrin) 400 mg PO Q6H PRN PRN Reason: Pain Last Admin: 10/05/18 21:13 Dose: 400 mg Insulin Human Lispro (Humalog) 0 units [place] .AGGRESSIVE SLIDING PRN PRN Reason: Aggressive Correctional Scale Last Admin: 10/02/18 17:17 Dose: 9 unit Insulin Human Lispro (Humalog) 0 units SC .BEDTIME SLIDING SC PRN PRN Reason: Bedtime Correctional Scale Loperamide HCl (Imodium) 2 mg PO PRN PRN PRN Reason: Diarrhea/Loose Stools Methylprednisolone Sodium Succinate (Solu-Medrol) 40 mg IVP Q8HR [facility] Non-Formulary Medication (Valsartan [Valsartan]) 160 mg PO DAILY [facility] Ondansetron HCl (Zofran Odt) 4 mg PO Q6H PRN PRN Reason: Nausea/Vomiting Ondansetron HCl (Zofran) 4 mg IVP Q6H PRN PRN Reason: Nausea/Vomiting Last Admin: 10/05/18 01:18 Dose: 4 mg Oseltamivir Phosphate (Tamiflu) 75 mg PO BID [facility] Stop: 10/09/18 21:01 Last Admin: 10/06/18 21:04 Dose: 75 mg Potassium Ch[facility] ([facility]) [facility] Last Admin: 10/06/18 16:49 Dose: 40 meq Rosuvastatin Calcium (Crestor) 20 mg PO DAILY [facility] Saccharomyces Boulardii (Florastor) 250 mg PO BID [facility] Last Admin: 10/06/18 21:03 Dose: 250 mg Senna/Docusate Sodium (Senokot S) 2 tab PO BID PRN PRN Reason: Constipation Last Admin: 10/02/18 16:03 Dose: 2 tab Sodium Chloride (Flush - Normal Saline) 10 ml IVF Q12HR [facility] Last Admin: 10/06/18 21:04 Dose: 10 ml Sodium Chloride (Flush - Normal Saline) 10 ml IVF PRN PRN PRN Reason: Saline Flush Vancomycin HCl (First Vancomycin) 125 mg PO QID [facility] Last Admin: 10/06/18 21:03 Dose: 125 mg Zolpidem Tartrate (Ambien) 5 mg PO HSPRN PRN PRN Reason: Insomnia
[2018-10-07] MEDS: Fluconazole In NaCl,Iso-Osm 100 MG IVPB SCH (10:30)
[2018-10-07] MEDS: Oseltamivir 75 MG CAP PO SCH ×2 (10:31→21:55)
[2018-10-07] MEDS: Potassium Chloride 20 MEQ TAB PO SCH ×2 (10:31→19:21)
[2018-10-07] MEDS: Famotidine 20 MG TAB PO SCH (10:31)
[2018-10-07] MEDS: Saccharomyces boulardii 250 MG CAP PO SCH ×2 (10:32→21:55)
[2018-10-07 13:09] VITALS: BMI 41.3
[2018-10-07] MEDS: Diabetic Tussin 200 MG/10 ML UDCUP PO PRN (21:52)
[2018-10-07] MEDS: Carvedilol 25 MG TAB PO SCH (21:55)
[2018-10-08 00:10] LABS: HSV 2 - DNA Positive (Negative)
[2018-10-08] MEDS: HumaLOG 300 UNITS/3 ML VIAL SC PRN (05:57)
--- NOTE | 2018-10-08 09:31 | PDOC.PN ---
- Subjective Encounter Start Date: 10/08/18 Encounter Start Time: 07:00 pt has not walked and she is very weak, her respiration has improved, no fever - Objective Resuscitation Status - Order Detail: 10/01/18 22:25 Resuscitation Status Routine Resuscitation Status: FULL: Full Resuscitation MAR Reviewed: Yes Vital Signs & Weight: Vital Signs (12 hours) Temp Pulse Resp BP Pulse Ox 10/08/18 08:27 99 10/08/18 08:26 82 16 99 10/08/18 08:00 97.7 F 63 22 H 124/59 L 98 10/08/18 04:00 97.6 F 67 18 142/67 H 97 10/08/18 00:53 68 16 100 10/08/18 00:00 98.7 F 72 18 176/98 H 98 Weight Admit Weight 208 lb 4.8 oz Weight 211 lb 8 oz I&O: 10/07/18 10/08/18 10/09/18 06:59 06:59 06:59 Intake Total 960 111 Output Total 900 Balance 960 -789 Result Diagrams: 10/07/18 04:04 10/07/18 04:04 Additional Labs: Accuchecks 10/08/18 10/07/18 10/07/18 05:46 20:51 15:40 POC Glucose 202 H 225 H 93 10/07/18 10:58 POC Glucose 91 Phys Exam - Physical Examination Constitutional: NAD HEENT: PERRLA, moist MMs, sclera anicteric Neck: no JVD, supple Respiratory: no wheezing, no rales, no rhonchi Cardiovascular: RRR, no significant murmur, no rub Gastrointestinal: soft, non-tender, no distention, positive bowel sounds Musculoskeletal: no edema, pulses present Neurological: non-focal, normal sensation Lymphatic: no nodes Psychiatric: normal affect, A&O x 3 Skin: no rash, normal turgor Dx/Plan (1) Acute worsening of stage 3 chronic kidney disease Code(s): N18.3 - CHRONIC KIDNEY DISEASE, STAGE 3 (MODERATE) Status: Acute (2) Hypoglycemia associated with type 2 diabetes mellitus Code(s): E11.649 - TYPE 2 DIABETES MELLITUS WITH HYPOGLYCEMIA WITHOUT COMA Status: Acute (3) Sepsis with acute organ dysfunction Code(s): A41.9 - SEPSIS, UNSPECIFIED ORGANISM; R65.20 - SEVERE SEPSIS WITHOUT SEPTIC SHOCK Status: Acute (4) UTI (urinary tract infection) Status: Ruled-out Comment: (5) Diabetes type 2, controlled Code(s): E11.9 - TYPE 2 DIABETES MELLITUS WITHOUT COMPLICATIONS Status: Chronic Comment: (6) Dyslipidemia Code(s): E78.5 - HYPERLIPIDEMIA, UNSPECIFIED Status: Chronic Comment: (7) Hypertension Code(s): I10 - ESSENTIAL (PRIMARY) HYPERTENSION Status: Chronic Qualifiers: Comment: (8) Morbid obesity with BMI of 40.0-44.9, adult Code(s): E66.01 - MORBID (SEVERE) OBESITY DUE TO EXCESS CALORIES; Z68.41 - BODY MASS INDEX (BMI) 40.0-44.9, ADULT Status: Chronic (9) Multiple myeloma Code(s): C90.00 - MULTIPLE MYELOMA NOT HAVING ACHIEVED REMISSION Status: Chronic Comment: (10) Influenza A Code(s): J10.1 - FLU DUE TO OTH IDENT INFLUENZA VIRUS W OTH RESP MANIFEST Status: Acute (11) Clostridium difficile infection Code(s): B96.89 - OTH BACTERIAL AGENTS THE CAUSE OF DISEASES CLASSD ELSWHR Status: Acute (12) Hypokalemia Code(s): E87.6 - HYPOKALEMIA Status: Acute Comment: (13) Anemia, normocytic normochromic Code(s): D64.9 - ANEMIA, UNSPECIFIED Status: Chronic (14) Acute bronchitis Code(s): J20.9 - ACUTE BRONCHITIS, UNSPECIFIED Status: Acute (15) Hypophosphatemia Code(s): E83.39 - OTHER DISORDERS OF PHOSPHORUS METABOLISM Status: Acute - Plan cont current plan of care, continue antibiotics, 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 * medication reviewed as below * symptomatic treatment * continue oral vancomycin, diflucan, and tamiflu * will need alcantar on discharge until wound heals Review of Systems - Review of Systems ENT: negative: Ear Pain, Ear Discharge, Nose Pain, Nose Discharge, Nose Congestion, Mouth Pain, Mouth Swelling, Throat Pain, Throat Swelling, Other Respiratory: negative: Cough, Dry, Shortness of Breath, Hemoptysis, SOB with Excertion, Pleuritic Pain, Sputum, Wheezing Cardiovascular: negative: chest pain, palpitations, orthopnea, paroxysmal nocturnal dyspnea, edema, light headedness, other Gastrointestinal: negative: Nausea, Vomiting, Abdominal Pain, Diarrhea, Constipation, Melena, Hematochezia, Other Genitourinary: negative: Dysuria, Frequency, Incontinence, Hematuria, Retention , Other Musculoskeletal: negative: Neck Pain, Shoulder Pain, Arm Pain, Back Pain, Hand Pain, Leg Pain, Foot Pain, Other Skin: negative: Rash, Lesions, Toi, Bruising, Other - Medications/Allergies Allergies/Adverse Reactions: Allergies Allergy/AdvReac Type Severity Reaction Status Date / Time codeine Allergy Stomach Verified 10/02/18 00:18 Ache hydrocodone [From Vicodin] Allergy Verified 10/02/18 00:18 morphine Allergy Stomach Verified 10/02/18 00:18 Ache Sulfa (Sulfonamide Allergy Stomach Verified 10/02/18 00:18 Antibiotics) Ache tramadol Allergy Stomach Verified 10/02/18 00:18 Ache Medications: Current Medications Acetaminophen (Tylenol) 650 mg PO Q4H PRN PRN Reason: Headache/Fever/Mild Pain (1-3) Last Admin: 10/05/18 15:41 Dose: 650 mg Albuterol/Ipratropium (Duoneb) 3 ml NEB [id number] PRN PRN Reason: SOB &/or Wheezing Albuterol/Ipratropium (Duoneb) 3 ml NEB [id number] [facility] Last Admin: 10/08/18 08:26 Dose: 3 ml Allopurinol (Zyloprim) 300 mg PO DAILY [facility] Bisacodyl (Dulcolax) 10 mg PO DAILYPRN PRN PRN Reason: Constipation Bisacodyl (Dulcolax) 10 mg [place] DAILYPRN PRN PRN Reason: Constipation Calcium Carbonate (Tums) 1,000 mg PO Q4H PRN PRN Reason: Heartburn or Indigestion Carvedilol (Coreg) 25 mg PO BID [facility] Last Admin: 10/07/18 21:55 Dose: 25 mg Dextrose/Water (Dextrose 50%) 25 gm SLOW IVP PRN PRN PRN Reason: Hypoglycemia Last Admin: 10/03/18 14:34 Dose: 25 gm Famotidine (Pepcid) 20 mg PO DAILY [facility] Last Admin: 10/07/18 10:31 Dose: 20 mg Fish Oil (Fish Oil) 1,000 mg PO DAILY [facility] Furosemide (Lasix) 40 mg PO DAILY [facility] Glucagon (Glucagon) 1 mg IM PRN PRN PRN Reason: Hypoglycemia Guaifenesin (Robitussin Sf) 300 mg PO Q6H PRN PRN Reason: Cough Last Admin: 10/07/18 21:52 Dose: 300 mg Heparin Sodium (Porcine) (Heparin) 5,000 units SC BID [facility] Last Admin: 10/07/18 21:54 Dose: 5,000 units Dextrose/Water (D5w) 1,000 mls @ 0 mls/hr IV .Q0M PRN PRN Reason: Hypoglycemia Fluconazole/Sodium Chloride 100 mg/ Miscellaneous Medication 50 mls @ 100 mls/ hr IVPB DAILY [facility] Last Admin: 10/07/18 10:30 Dose: 50 mls Ibuprofen (Motrin) 400 mg PO Q6H PRN PRN Reason: Pain Last Admin: 10/05/18 21:13 Dose: 400 mg Insulin Human Lispro (Humalog) 0 units SC .AGGRESSIVE SLIDING PRN PRN Reason: Aggressive Correctional Scale Last Admin: 10/08/18 05:57 Dose: 6 unit Insulin Human Lispro (Humalog) 0 units SC .BEDTIME SLIDING SC PRN PRN Reason: Bedtime Correctional Scale Last Admin: 10/07/18 21:55 Dose: 2 units Loperamide HCl (Imodium) 2 mg PO PRN PRN PRN Reason: Diarrhea/Loose Stools Methylprednisolone Sodium Succinate (Solu-Medrol) 40 mg IVP Q8HR [facility] Last Admin: 10/08/18 05:47 Dose: 40 mg Ondansetron HCl (Zofran Odt) 4 mg PO Q6H PRN PRN Reason: Nausea/Vomiting Ondansetron HCl (Zofran) 4 mg IVP Q6H PRN PRN Reason: Nausea/Vomiting Last Admin: 10/05/18 01:18 Dose: 4 mg Oseltamivir Phosphate (Tamiflu) 75 mg PO BID [facility] Stop: 10/09/18 21:01 Last Admin: 10/07/18 21:55 Dose: 75 mg Potassium Chloride (K-Dur) 40 meq PO BID[facility] Last Admin: 10/07/18 19:21 Dose: 40 meq Rosuvastatin Calcium (Crestor) 20 mg PO DAILY [facility] Saccharomyces Boulardii (Florastor) 250 mg PO BID [facility] Last Admin: 10/07/18 21:55 Dose: 250 mg Senna/Docusate Sodium (Senokot S) 2 tab PO BID PRN PRN Reason: Constipation Last Admin: 10/02/18 16:03 Dose: 2 tab Sodium Chloride (Flush - Normal Saline) 10 ml IVF Q12HR [facility] Last Admin: 10/07/18 21:56 Dose: 10 ml Sodium Chloride (Flush - Normal Saline) 10 ml IVF PRN PRN PRN Reason: Saline Flush Last Admin: 10/07/18 15:07 Dose: 10 ml Valacyclovir HCl (Valtrex) 500 mg PO BID [facility] Valsartan (Diovan) 160 mg PO DAILY [facility] Vancomycin HCl (First Vancomycin) 125 mg PO QID [facility] Last Admin: 10/07/18 21:54 Dose: 125 mg Zolpidem Tartrate (Ambien) 5 mg PO HSPRN PRN PRN Reason: Insomnia
[2018-10-08] MEDS: Fish Oil 1,000 MG CAP PO SCH (09:38)
[2018-10-08] MEDS: Oseltamivir 75 MG CAP PO SCH ×2 (09:38→21:26)
[2018-10-08] MEDS: Vancomycin HCl 25 MG/ML Oral PO SCH ×4 (09:38→21:25)
[2018-10-08] MEDS: Fluconazole In NaCl,Iso-Osm 100 MG IVPB SCH (09:38)
[2018-10-08] MEDS: valACYclovir 500 MG TAB PO SCH ×2 (09:38→21:26)
[2018-10-08] MEDS: Potassium Chloride 20 MEQ TAB PO SCH ×2 (09:38→17:49)
[2018-10-08] MEDS: Valsartan 80 MG TAB PO SCH (09:39)
[2018-10-08] MEDS: Furosemide 40 MG TAB PO SCH (09:39)
[2018-10-08] MEDS: Rosuvastatin 20 MG TAB PO SCH (09:39)
[2018-10-08] MEDS: Allopurinol 300 MG TAB PO SCH (09:39)
[2018-10-08] MEDS: Saccharomyces boulardii 250 MG CAP PO SCH ×2 (09:39→21:26)
[2018-10-08] MEDS: Famotidine 20 MG TAB PO SCH (09:39)
[2018-10-08] MEDS: Carvedilol 25 MG TAB PO SCH ×2 (09:39→21:27)
[2018-10-08] MEDS: Heparin 5,000 UNITS/ML VIAL SC SCH ×2 (09:40→21:26)
[2018-10-08 10:22] LABS: CMV log 10 Quant 3.744 (.)
--- NOTE | 2018-10-08 12:08 | PRG ---
DATE OF SERVICE: 10/08/2018 SUBJECTIVE: Ms. Huggins feels weak, but less dyspnea. No diarrhea. No abdominal pain. OBJECTIVE: VITAL SIGNS: Temperature max 99.7, she is now 97.7; blood pressure 120/50; pulse 82; respirations 16; and O2 saturation 99%. Weight appears more comfortable. LUNGS: Scattered rhonchi. HEART: S1 and S2. Regular rate. ABDOMEN: Soft, not distended or tender. BACK: The lesions in the back area and in the perineal region are about the same. LABORATORY DATA: The CMV, DNA, PCR was positive in serum at 5500. The herpes simplex DNA PCR type 2 was positive from the perineal ulcers. Creatinine 0.83. White cell count 2.9, hemoglobin 7.5. 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 Treatment for influenza A will be completed soon. We will start valganciclovir orally, which will take care of the CMV and herpes simplex perineal infection. We will need follow up of CMV viremia check as well as followup her perineal lesions. This valganciclovir treatment will have to continue for a few weeks until we have followup with those areas as noted above. She will probably have to be at least for another 4 weeks on valganciclovir and will need at least weekly monitoring of her basic metabolic panel and CBC since it may be associated with neutropenia and thrombocytopenia as well as anemia. Job ID: [id number]
[2018-10-08] MEDS: Diabetic Tussin 200 MG/10 ML UDCUP PO PRN (12:55)
[2018-10-08] MEDS: Ibuprofen 200 MG TAB PO PRN (21:25)
[2018-10-09] MEDS: Furosemide 40 MG TAB PO SCH (07:58)
[2018-10-09] MEDS: Potassium Chloride 20 MEQ TAB PO SCH ×2 (07:58→16:51)
[2018-10-09 08:47] LABS: ALT (SGPT) 31 U/L (8-55); AST (SGOT) 18 U/L (5-34); Alkaline Phosphatase 82 U/L (40-150); Anion Gap 13 mmol/L (10-20); BUN (Urea Nitrogen) 16 mg/dL (9.8-20.1); Bilirubin, Total 0.4 mg/dL (0.2-1.2); Calc. Creatinine Clearance 96 mL/min (70-130); Calcium 8.6 mg/dL (7.8-10.44); Carbon Dioxide 17 mmol/L (23-31); Chloride 116 mmol/L (98-107); Estimated GFR-MDRD 75; Glucose 202 mg/dL (80-115); Magnesium 1.9 mg/dL (1.6-2.6); Phosphorus 2.8 mg/dL (2.3-4.7); Potassium 4.9 mmol/L (3.5-5.1); Sodium 141 mmol/L (136-145)
[2018-10-09] MEDS: Carvedilol 25 MG TAB PO SCH ×2 (08:58→20:13)
[2018-10-09] MEDS: valACYclovir 500 MG TAB PO SCH (08:58)
[2018-10-09] MEDS: Allopurinol 300 MG TAB PO SCH (08:58)
[2018-10-09] MEDS: Valsartan 80 MG TAB PO SCH (08:58)
[2018-10-09] MEDS: Saccharomyces boulardii 250 MG CAP PO SCH ×2 (08:58→20:14)
[2018-10-09] MEDS: Fluconazole In NaCl,Iso-Osm 100 MG IVPB SCH (08:59)
[2018-10-09] MEDS: Famotidine 20 MG TAB PO SCH (08:59)
[2018-10-09] MEDS: Fish Oil 1,000 MG CAP PO SCH (08:59)
[2018-10-09] MEDS: Rosuvastatin 20 MG TAB PO SCH (09:00)
[2018-10-09] MEDS: Oseltamivir 75 MG CAP PO SCH ×2 (09:00→20:13)
[2018-10-09] MEDS: Heparin 5,000 UNITS/ML VIAL SC SCH ×2 (09:02→20:14)
[2018-10-09 09:35] LABS: Hemoglobin 7.1 g/dL (12.0-16.0); Lymphocytes 56 % (21-51); MDiff Complete? YES; Mean Corpuscular HGB CONC 33.3 g/dL (32.0-36.0); Mean Corpuscular Hemoglobin 30.7 pg (27.0-31.0); Mean Corpuscular Volume 92.2 fL (78.0-98.0); Mean Platelet Volume 9.8 fL (7.4-10.4); Monocytes 34 % (0-10); Neutrophil 8 % (42-75); Platelet Count 167 thou/uL (130-400); Platelet Morphology Comment Appears Adequate; Polychromasia SLIGHT = 2-3 cells (100X) (0-2/hpf); RBC Distribution Width 17.4 % (11.5-14.5); Reactive Lymphocytes 2 % (0-10); Red Blood Cell (RBC) Count 2.33 mill/uL (4.20-5.40); White Blood Cell (WBC) Count 1.6 thou/uL (4.8-10.8)
--- NOTE | 2018-10-09 10:19 | PDOC.PN ---
- Subjective Encounter Start Date: 10/09/18 Encounter Start Time: 07:00 pt is weak, awake but confused, no fever, Patient seen and examined. No overnight events - Objective Resuscitation Status - Order Detail: 10/01/18 22:25 Resuscitation Status Routine Resuscitation Status: FULL: Full Resuscitation MAR Reviewed: Yes Vital Signs & Weight: Vital Signs (12 hours) Pulse Resp Pulse Ox 10/09/18 07:27 98 10/09/18 07:25 72 16 98 10/09/18 00:19 80 12 Weight Admit Weight 208 lb 4.8 oz Weight 211 lb 8 oz I&O: 10/08/18 10/09/18 10/10/18 06:59 06:59 06:59 Intake Total 111 Output Total 900 400 Balance -789 -400 Result Diagrams: 10/09/18 08:16 10/09/18 08:16 Additional Labs: Accuchecks 10/09/18 10/08/18 10/08/18 06:25 21:35 17:45 POC Glucose 199 H 219 H 234 H 10/08/18 11:44 POC Glucose 214 H Phys Exam - Physical Examination Constitutional: NAD HEENT: PERRLA, moist MMs, sclera anicteric pallor+ Neck: no JVD, supple Respiratory: no wheezing, no rales, no rhonchi Cardiovascular: RRR, no significant murmur, no rub Gastrointestinal: soft, non-tender, no distention, positive bowel sounds Musculoskeletal: pulses present, edema present Neurological: moves all 4 limbs Lymphatic: no nodes Psychiatric: normal affect Skin: no rash, normal turgor Dx/Plan (1) HSV-2 (herpes simplex virus 2) infection Code(s): B00.9 - HERPESVIRAL INFECTION, UNSPECIFIED Status: Acute (2) Acute bronchitis Code(s): J20.9 - ACUTE BRONCHITIS, UNSPECIFIED Status: Acute Qualifiers: Bronchitis organism: unspecified organism Qualified Code(s): J20.9 - Acute bronchitis, unspecified Comment: due to influenza (3) Clostridium difficile infection Code(s): B96.89 - OTH BACTERIAL AGENTS THE CAUSE OF DISEASES CLASSD ELSWHR Status: Acute (4) Influenza A Code(s): J10.1 - FLU DUE TO OTH IDENT INFLUENZA VIRUS W OTH RESP MANIFEST Status: Acute (5) Acute worsening of stage 3 chronic kidney disease Code(s): N18.3 - CHRONIC KIDNEY DISEASE, STAGE 3 (MODERATE) Status: Resolved (6) Hypoglycemia associated with type 2 diabetes mellitus Code(s): E11.649 - TYPE 2 DIABETES MELLITUS WITH HYPOGLYCEMIA WITHOUT COMA Status: Resolved (7) Sepsis with acute organ dysfunction Code(s): A41.9 - SEPSIS, UNSPECIFIED ORGANISM; R65.20 - SEVERE SEPSIS WITHOUT SEPTIC SHOCK Status: Acute (8) Diabetes type 2, controlled Code(s): E11.9 - TYPE 2 DIABETES MELLITUS WITHOUT COMPLICATIONS Status: Chronic Comment: (9) Dyslipidemia Code(s): E78.5 - HYPERLIPIDEMIA, UNSPECIFIED Status: Chronic Comment: (10) Hypertension Code(s): I10 - ESSENTIAL (PRIMARY) HYPERTENSION Status: Chronic Qualifiers: Comment: (11) Morbid obesity with BMI of 40.0-44.9, adult Code(s): E66.01 - MORBID (SEVERE) OBESITY DUE TO EXCESS CALORIES; Z68.41 - BODY MASS INDEX (BMI) 40.0-44.9, ADULT Status: Chronic (12) Multiple myeloma Code(s): C90.00 - MULTIPLE MYELOMA NOT HAVING ACHIEVED REMISSION Status: Chronic Comment: (13) Anemia, normocytic normochromic Code(s): D64.9 - ANEMIA, UNSPECIFIED Status: Acute (14) Hypophosphatemia Code(s): E83.39 - OTHER DISORDERS OF PHOSPHORUS METABOLISM Status: Resolved (15) Hypokalemia Code(s): E87.6 - HYPOKALEMIA Status: Resolved Comment: - Plan cont current plan of care, continue antibiotics, PT/OT, social media marketing manager, respiratory therapy * continue valcyte for HSV -2 infection * continue oral vancomycin for c-diff * reduce solumedrol 20 mg iv q 8 hourly * will transfuse 1 unit prbc today for symptomatic anemia * medication reviewed as below * symptomatic treatment. * continue skin care, wound care * needs placement * will repeat cbc tomorrow * change diflucan PO Review of Systems - Review of Systems Constitutional: weakness, malaise. negative: fever, chills, sweats, other ENT: negative: Ear Pain, Ear Discharge, Nose Pain, Nose Discharge, Nose Congestion, Mouth Pain, Mouth Swelling, Throat Pain, Throat Swelling, Other Respiratory: negative: Cough, Dry, Shortness of Breath, Hemoptysis, SOB with Excertion, Pleuritic Pain, Sputum, Wheezing Cardiovascular: negative: chest pain, palpitations, orthopnea, paroxysmal nocturnal dyspnea, edema, light headedness, other Gastrointestinal: negative: Nausea, Vomiting, Abdominal Pain, Diarrhea, Constipation, Melena, Hematochezia, Other Genitourinary: negative: Dysuria, Frequency, Incontinence, Hematuria, Retention , Other Musculoskeletal: negative: Neck Pain, Shoulder Pain, Arm Pain, Back Pain, Hand Pain, Leg Pain, Foot Pain, Other Skin: negative: Rash, Lesions, Toi, Bruising, Other Neurological: Confusion. negative: Weakness, Numbness, Incoordination, Change in Speech, Seizures, Other - Medications/Allergies Allergies/Adverse Reactions: Allergies Allergy/AdvReac Type Severity Reaction Status Date / Time codeine Allergy Stomach Verified 10/02/18 00:18 Ache hydrocodone [From Vicodin] Allergy Verified 10/02/18 00:18 morphine Allergy Stomach Verified 10/02/18 00:18 Ache Sulfa (Sulfonamide Allergy Stomach Verified 10/02/18 00:18 Antibiotics) Ache tramadol Allergy Stomach Verified 10/02/18 00:18 Ache Medications: Current Medications Acetaminophen (Tylenol) 650 mg PO Q4H PRN PRN Reason: Headache/Fever/Mild Pain (1-3) Last Admin: 10/05/18 15:41 Dose: 650 mg Albuterol/Ipratropium (Duoneb) 3 ml NEB [id number] PRN PRN Reason: SOB &/or Wheezing Albuterol/Ipratropium (Duoneb) 3 ml NEB [id number] [facility] Last Admin: 10/09/18 07:25 Dose: 3 ml Allopurinol (Zyloprim) 300 mg PO DAILY [facility] Last Admin: 10/09/18 08:58 Dose: 300 mg Bisacodyl (Dulcolax) 10 mg PO DAILYPRN PRN PRN Reason: Constipation Bisacodyl (Dulcolax) 10 mg [place] DAILYPRN PRN PRN Reason: Constipation Calcium Carbonate (Tums) 1,000 mg PO Q4H PRN PRN Reason: Heartburn or Indigestion Carvedilol (Coreg) 25 mg PO BID [facility] Last Admin: 10/09/18 08:58 Dose: 25 mg Dextrose/Water (Dextrose 50%) 25 gm SLOW IVP PRN PRN PRN Reason: Hypoglycemia Last Admin: 10/03/18 14:34 Dose: 25 gm Famotidine (Pepcid) 20 mg PO DAILY [facility] Last Admin: 10/09/18 08:59 Dose: 20 mg Fish Oil (Fish Oil) 1,000 mg PO DAILY [facility] Last Admin: 10/09/18 08:59 Dose: 1,000 mg Fluconazole (Diflucan) 100 mg PO DAILY [facility] Furosemide (Lasix) 40 mg PO DAILY [facility] Last Admin: 10/09/18 07:58 Dose: 40 mg Glucagon (Glucagon) 1 mg IM PRN PRN PRN Reason: Hypoglycemia Guaifenesin (Robitussin Sf) 300 mg PO Q6H PRN PRN Reason: Cough Last Admin: 10/08/18 12:55 Dose: 300 mg Heparin Sodium (Porcine) (Heparin) 5,000 units SC BID [facility] Last Admin: 10/09/18 09:02 Dose: 5,000 units Dextrose/Water (D5w) 1,000 mls @ 0 mls/hr IV .Q0M PRN PRN Reason: Hypoglycemia Ibuprofen (Motrin) 400 mg PO Q6H PRN PRN Reason: Pain Last Admin: 10/08/18 21:25 Dose: 400 mg Insulin Human Lispro (Humalog) 0 units SC .AGGRESSIVE SLIDING PRN PRN Reason: Aggressive Correctional Scale Last Admin: 10/08/18 05:57 Dose: 6 unit Insulin Human Lispro (Humalog) 0 units SC .BEDTIME SLIDING SC PRN PRN Reason: Bedtime Correctional Scale Last Admin: 10/07/18 21:55 Dose: 2 units Loperamide HCl (Imodium) 2 mg PO PRN PRN PRN Reason: Diarrhea/Loose Stools Methylprednisolone Sodium Succinate (Solu-Medrol) 40 mg IVP Q8HR [facility] Last Admin: 10/09/18 06:37 Dose: 40 mg Ondansetron HCl (Zofran Odt) 4 mg PO Q6H PRN PRN Reason: Nausea/Vomiting Ondansetron HCl (Zofran) 4 mg IVP Q6H PRN PRN Reason: Nausea/Vomiting Last Admin: 10/05/18 01:18 Dose: 4 mg Oseltamivir Phosphate (Tamiflu) 75 mg PO BID [facility] Stop: 10/09/18 21:01 Last Admin: 10/09/18 09:00 Dose: 75 mg Potassium Chloride (K-Dur) 40 meq PO BID-WM [facility] Last Admin: 10/09/18 07:58 Dose: 40 meq Rosuvastatin Calcium (Crestor) 20 mg PO DAILY [facility] Last Admin: 10/09/18 09:00 Dose: 20 mg Saccharomyces Boulardii (Florastor) 250 mg PO BID [facility] Last Admin: 10/09/18 08:58 Dose: 250 mg Senna/Docusate Sodium (Senokot S) 2 tab PO BID PRN PRN Reason: Constipation Last Admin: 10/02/18 16:03 Dose: 2 tab Sodium Chloride (Flush - Normal Saline) 10 ml IVF Q12HR [facility] Last Admin: 10/08/18 21:31 Dose: 10 ml Sodium Chloride (Flush - Normal Saline) 10 ml IVF PRN PRN PRN Reason: Saline Flush Last Admin: 10/09/18 06:45 Dose: 10 ml Valganciclovir (Valcyte) 900 mg PO BID [facility] Stop: 10/22/18 21:01 Last Admin: 10/09/18 09:01 Dose: 900 mg Valganciclovir (Valcyte) 900 mg PO DAILY [facility] Valsartan (Diovan) 160 mg PO DAILY [facility] Last Admin: 10/09/18 08:58 Dose: 160 mg Vancomycin HCl (First Vancomycin) 125 mg PO QID [facility] Last Admin: 10/08/18 21:25 Dose: 125 mg Zolpidem Tartrate (Ambien) 5 mg PO HSPRN PRN PRN Reason: Insomnia
[2018-10-09] MEDS: Vancomycin HCl 25 MG/ML Oral PO SCH ×4 (10:47→20:26)
[2018-10-09] MEDS: Fluconazole 100 MG TAB PO SCH (10:47)
[2018-10-09] MEDS: HumaLOG 300 UNITS/3 ML VIAL SC PRN (16:44)
[2018-10-09] MEDS ORDERED: Furosemide 20 MG/2 ML VIAL SLOW IVP SCH (20:00)
[2018-10-10 08:44] LABS: Anion Gap 12 mmol/L (10-20); BUN (Urea Nitrogen) 18 mg/dL (9.8-20.1); Calc. Creatinine Clearance 99 mL/min (70-130); Carbon Dioxide 20 mmol/L (23-31); Chloride 112 mmol/L (98-107); Estimated GFR-MDRD 78; Glucose 197 mg/dL (80-115); Potassium 4.5 mmol/L (3.5-5.1); Sodium 139 mmol/L (136-145)
[2018-10-10 09:29] VITALS: BP 148/81; TEMP 97.5
[2018-10-10] MEDS: Potassium Chloride 20 MEQ TAB PO SCH (09:38)
[2018-10-10] MEDS: Saccharomyces boulardii 250 MG CAP PO SCH (09:38)
[2018-10-10] MEDS: Valsartan 80 MG TAB PO SCH (09:39)
[2018-10-10] MEDS: Furosemide 40 MG TAB PO SCH (09:39)
[2018-10-10] MEDS: Fluconazole 100 MG TAB PO SCH (09:39)
[2018-10-10] MEDS: Famotidine 20 MG TAB PO SCH (09:39)
[2018-10-10] MEDS: Allopurinol 300 MG TAB PO SCH (09:39)
[2018-10-10] MEDS: Carvedilol 25 MG TAB PO SCH (09:39)
[2018-10-10] MEDS: Rosuvastatin 20 MG TAB PO SCH (09:39)
[2018-10-10] MEDS: Fish Oil 1,000 MG CAP PO SCH (09:39)
[2018-10-10] MEDS: Heparin 5,000 UNITS/ML VIAL SC SCH (09:41)
[2018-10-10] MEDS: Vancomycin HCl 25 MG/ML Oral PO SCH (09:41)
[2018-10-10 09:51] LABS: Hemoglobin 8.8 g/dL (12.0-16.0); Hypochromia SLIGHT = 6-15 cells (100X) (0-5/hpf); Lymphocytes 32 % (21-51); MDiff Complete? YES; Mean Corpuscular HGB CONC 31.6 g/dL (32.0-36.0); Mean Corpuscular Volume 91.9 fL (78.0-98.0); Mean Platelet Volume 9.4 fL (7.4-10.4); Microcytosis SLIGHT = 6-15 cells (100X) (0-5/hpf); Monocytes 44 % (0-10); Neutrophil 8 % (42-75); Nucleated RBC 2 % (0); Platelet Count 200 thou/uL (130-400); Platelet Morphology Comment Appears Adequate; Polychromasia SLIGHT = 2-3 cells (100X) (0-2/hpf); RBC Distribution Width 16.4 % (11.5-14.5); Reactive Lymphocytes 16 % (0-10); Red Blood Cell (RBC) Count 3.02 mill/uL (4.20-5.40); Small Platelets SLIGHT; White Blood Cell (WBC) Count 1.7 thou/uL (4.8-10.8)
[2018-10-10] MEDS: Diabetic Tussin 200 MG/10 ML UDCUP PO PRN (09:55)
--- NOTE | 2018-10-10 10:16 | DIS ---
DATE OF ADMISSION: 10/01/2018 DATE OF DISCHARGE: 10/10/2018 PRIMARY CARE PHYSICIAN: Brian Craig MD DISCHARGE DISPOSITION: Home with home hospice. PRIMARY DISCHARGE DIAGNOSES: 1. Acute bronchitis. 2. Influenza A, herpes simplex virus 2 infection, Clostridium difficile infection, sepsis with acute organ dysfunction. 3. Acute on chronic kidney failure with chronic kidney disease stage 3. 4. Hypoglycemia, associated diabetes type 2, hypokalemia, hypophosphatemia. SECONDARY DISCHARGE DIAGNOSES: 1. Normocytic anemia. 2. Multiple myeloma. 3. Diabetes type 2. 4. Hypertension. 5. Dyslipidemia. 6. Physical deconditioning. 7. Morbid obesity with body mass index of 41. PRIMARY PROCEDURE/OPERATION: None. RADIOLOGICAL INVESTIGATION: Chest x-ray. SIGNIFICANT LABORATORY DATA: WBC 1.6, hemoglobin 7.1, platelet 167. Sodium 139, potassium 4.5, BUN 18, creatinine 0.89, calcium 9.0. HSV 2 positive. CMV DNA negative. Urinalysis suggestive of UTI, but urine culture negative. C. diff positive. Respiratory virus panel positive for influenza. Cryptococcal antigen negative. Blood culture negative. Urine culture negative. DISCHARGE MEDICATION: 1. Zofran 4 mg q.4 hourly p.r.n. 2. Phenergan 25 mg p.o. q.4 hourly p.r.n. 3. Tylenol with Benadryl 1 tablet p.o. at bedtime p.r.n. 4. Allopurinol 300 mg daily. 5. Coreg 25 mg p.o. b.i.d. 6. Fish oil 1000 mg p.o. daily. 7. Gabapentin 600 mg t.i.d. 8. Humalog insulin as per sliding scale. 9. Multivitamin one capsule daily. 10. Claritin 10 mg daily p.r.n. 11. Potassium chloride 20 mEq p.o. daily. 12. Crestor 20 mg daily. 13. Valsartan 160 mg daily. 14. Ambien 5 mg at bedtime p.r.n. 15. Tylenol 500 mg q.4 hourly p.r.n. 16. Ventolin inhaler two puffs q.6 hourly p.r.n. 17. Lasix 40 mg daily. 18. DuoNeb q.6 hourly p.r.n. 19. Dulera two puff inhalation b.i.d. 20. Protonix 40 mg daily. 21. Florastor 250 mg daily. 22. Valcyte 900 mg p.o. b.i.d. 23. Vancomycin 125 mg q.i.d. for 10 days and then, taper every week. CONTRAINDICATION: None. CODE STATUS: DNR. INPATIENT SIGN OUT CLERK: Dr. Pereira was consulted while in hospital. Oncology was notified about this patient. TEST RESULTS PENDING ON DISCHARGE: None. ALLERGIES: CODEINE, HYDROCODONE, MORPHINE. DISCHARGE PLAN: Posthospital, the patient will follow up with primary care physician in 1 or 2 weeks. The patient is discharged home with home hospice. HOSPITAL COURSE: A 63-year-old female, who has underlying multiple myeloma, who has recurrent admission in our hospital. She was at detention and she was sent from detention for evaluation. She was having fever. Her urinalysis was consistent with UTI and then initially, we treated her with urinary tract infection. She was meeting sepsis with acute organ dysfunction criteria. She had acute on chronic kidney failure. She also had severe hypokalemia. The patient was given IV fluid and her kidney failure improved. Her urine culture remained negative. At that point, we discontinued antibiotic therapy. We checked C. diff, which was positive and that is why we started treating her with vancomycin. The patient also had influenza A positive and bronchitis, which was treated symptomatically and Tamiflu. The patient also had abnormal electrolytes that was corrected. The patient also given 1 unit of blood transfusion for her symptomatic anemia. At this point, the patient's renal function improved. Her influenza A treatment is finished. She will complete her C. diff infection treatment as an outpatient basis and taper after that. She will continue HSV infection with Valcyte 900 mg p.o. b.i.d. as per Dr. Pereira' recommendation. This patient has HSV 2 infection in her genital area and skin lesion, and that is why we put a Martinez catheter in. The patient has significant physical deconditioning. This patient was declined by all detention. Oncology recommended that this patient will not get any chemotherapy for her multiple myeloma. Her long-term prognosis is very poor. The patient's son and the patient requested DNR status, as well as home hospice. With the help of foster care case manager, we arranged home hospice. PHYSICAL EXAMINATION: The patient is seen and examined at bedside today. VITAL SIGNS: Currently, temperature 97.5, pulse 60, respiratory rate 18, saturation 94%, blood pressure 148/81, weight 211 pounds. GENERAL: The patient is currently alert and awake, in no obvious acute distress. HEENT: Head; normocephalic, atraumatic. Eyes; pupils round, reactive to light. Extraocular muscle intact. ENT; oropharynx within normal limits. Moist mucous membranes. No oral lesion. No pharyngeal erythema. No exudate. NECK: Supple. No JVD. No thyromegaly. No carotid bruit. LUNGS: Clear without any rhonchi or rales. CARDIAC: S1, S2 regular without any murmur. ABDOMEN: Soft and benign. EXTREMITIES: No edema. NEUROLOGIC: Nonfocal examination. This patient's prognosis is poor and she is at high risk for recurrent admission. Hospice has arranged all necessary equipment for her and we are discharging her home with home hospice. Job ID: [id number]
--- NOTE | 2018-10-10 22:31 | EKG ---
Test Reason : ABNORMAL LABS Blood Pressure : / mmHG Vent. Rate : 077 BPM Atrial Rate : 077 BPM P-R Int : 158 ms QRS Dur : 094 ms QT Int : 376 ms P-R-T Axes : 057 037 044 degrees QTc Int : 425 ms Normal sinus rhythm Possible Left atrial enlargement Borderline ECG Confirmed by EB REHMAN DO ([id number]), medical transcription editor KACEY PALACIO ([id number]) on 10/10/2018 10:30:51 PM Referred By: Confirmed By:EB REHMAN DO
== END 2018-10-10 12:43 | disposition hospice, home (50) | DRG 872 ==
LOC: EEVIPCON 18:48 → ERS 18:48 → 2NO 22:10 → ONC 10-04 12:53
PROVIDERS: ADMIT Internal Medicine; ATTEND Internal Medicine
DX: A41.9 Sepsis, unspecified organism (principal); N39.0 Urinary tract infection, site not specified; N17.9 Acute kidney failure, unspecified; C90.00 Multiple myeloma not having achieved remission; D61.82 Myelophthisis; Z68.41 Body mass index [BMI] 40.0-44.9, adult; B37.0 Candidal stomatitis; J44.0 Chronic obstructive pulmonary disease with (acute) lower respiratory infection; E87.6 Hypokalemia; E11.22 Type 2 diabetes mellitus with diabetic chronic kidney disease; I12.9 Hypertensive chronic kidney disease with stage 1 through stage 4 chronic kidney disease, or unspecified chronic kidney disease; N18.3 Chronic kidney disease, stage 3 (moderate); M1A.9XX0 Chronic gout, unspecified, without tophus (tophi); E11.649 Type 2 diabetes mellitus with hypoglycemia without coma; E66.01 Morbid (severe) obesity due to excess calories; E78.5 Hyperlipidemia, unspecified; J10.1 Influenza due to other identified influenza virus with other respiratory manifestations; B96.89 Other specified bacterial agents as the cause of diseases classified elsewhere; E83.39 Other disorders of phosphorus metabolism; J20.9 Acute bronchitis, unspecified
CPT/HCPCS: 36415; 36416; 36430; 71045; 80048; 80053; 81003; 81015; 83735; 84100; 85025; 86850; 86900; 86901; 87040; 87086; 87324; 87449; 87493; 87497; 87529; 87633; 87899; 93005; 94640; 96365; 96367; J1450; J1644; J1940; J2405; J2543; J2920; J3370; J3475; J3480; J7050; J7620; J8499; P9016

== ENCOUNTER 2018-10-11 18:56 | Inpatient (IN) | payer MEDICARE, MEDICAID ==
[2018-10-11] MEDS ORDERED: Ibuprofen 800 MG TAB ONE (19:01)
[2018-10-11] MEDS ORDERED: Acetaminophen 500 MG TAB ONE (19:01)
[2018-10-11 20:03] LABS: Mean Corpuscular HGB CONC 34.6 g/dL (32.0-36.0); Mean Corpuscular Volume 92.5 fL (78.0-98.0); Mean Platelet Volume 9.4 fL (7.4-10.4); Platelet Count 252 thou/uL (130-400); RBC Distribution Width 17.2 % (11.5-14.5); Red Blood Cell (RBC) Count 3.43 mill/uL (4.20-5.40)
[2018-10-11 20:14] LABS: Bilirubin Negative (Negative); Blood, Urine Small (Negative); Clarity CLOUDY (Clear); Glucose, Urine (Dipstick) Negative (Negative); Leukocyte Moderate (Negative); Nitrite Positive (Negative); Protein, Urine (Dipstick) 100 mg/dL (Neg-Trace); Specific Gravity, Urine 1.008 (1.002-1.036); Urobilinogen 0.2 mg/dL (0.2-1.0)
[2018-10-11 20:17] LABS: Bacteria/HPF 4+ HPF (None Seen); Pathc Cast-AUWi Flag 9.77 (0-2.49); RBC/HPF 0-3 HPF (0-3); Squamous Epithelial 0-3 HPF (0-3)
[2018-10-11 20:17] LABS: ALT (SGPT) 34 U/L (8-55); AST (SGOT) 20 U/L (5-34); Albumin 3.5 g/dL (3.4-4.8); Alkaline Phosphatase 99 U/L (40-150); Anion Gap 18 mmol/L (10-20); BUN (Urea Nitrogen) 11 mg/dL (9.8-20.1); Bilirubin, Total 1.2 mg/dL (0.2-1.2); CK (CPK) 27 U/L (29-168); Calc. Creatinine Clearance 0 mL/min (70-130); Calcium 9.2 mg/dL (7.8-10.44); Carbon Dioxide 19 mmol/L (23-31); Chloride 106 mmol/L (98-107); Estimated GFR-MDRD 81; Glucose 182 mg/dL (80-115); Potassium 3.6 mmol/L (3.5-5.1); Protein, Total 7.5 g/dL (6.0-8.3); Sodium 139 mmol/L (136-145)
[2018-10-11 20:20] LABS: Anisocytosis SLIGHT = 6-15 cells (100X) (0-5/hpf); Band 2 % (5-11); Eosinophils 6 % (0-10); Lymphocytes 55 % (21-51); MDiff Complete? YES; Monocytes 20 % (0-10); Neutrophil 14 % (42-75); Nucleated RBC 12 % (0); Ovalocytes SLIGHT = 2-5 cells (100X) (0-1/hpf); Platelet Morphology Comment Appears Adequate; Polychromasia MODERATE = 3-4 cells (100X) (0-2/hpf); Reactive Lymphocytes 3 % (0-10); Tear Drops SLIGHT = 2-5 cells (100X) (0-1/hpf); White Blood Cell (WBC) Count 2.3 thou/uL (4.8-10.8)
[2018-10-11 20:26] LABS: Hyaline Casts/LPF 0-3 HYALINE CAST LPF (0-3 Hyaline); Other Casts/LPF 0-3 COARSE GRAN LPF (0-3 Hyaline)
[2018-10-11] MEDS ORDERED: cefTRIAXone\\ROCEPHIN 2 GM VIAL ONE (21:10)
[2018-10-11] MEDS ORDERED: Vancomycin HCl 25 MG/ML Oral PO SCH (22:00)
--- NOTE | 2018-10-11 22:45 | RAD ---
CHEST RADIOGRAPH: Date: 10-11-18 Comparison: 10-05-18 History: Buttock wound, diffuse pain. FINDINGS: Rotation to the right limits detailed assessment. Mild pulmonary vascular congestion. No pneumothorax , pleural fluid, lobar consolidation or alveolar edema. Mild pulmonary vascular congestion. IMPRESSION: Pulmonary vascular congestion. No lobar consolidation or alveolar edema. POS: SUDARSHAN
[2018-10-12 04:16] VITALS: BMI 31.6
[2018-10-12] MEDS ORDERED: Prevnar 13-Val Conj/PF 0.5 ML SYRINGE IM ONE (09:00)
[2018-10-12] MEDS ORDERED: Ondansetron PF 4 MG/2 ML Vial IVP PRN (13:09)
[2018-10-12] MEDS ORDERED: Zolpidem Tartrate 5 MG TAB PO PRN (13:09)
[2018-10-12] MEDS ORDERED: Ondansetron ODT 4 MG TAB PO PRN (13:09)
[2018-10-12] MEDS ORDERED: Non-Formulary Item 1 EACH (Gabapentin [Gabapentin] 600 MG) PO SCH (15:00)
[2018-10-12] MEDS: Gabapentin 300 MG CAP PO SCH ×2 (15:27→20:34)
[2018-10-12] MEDS: Furosemide 40 MG TAB PO SCH (20:34)
[2018-10-12] MEDS: Carvedilol 25 MG TAB PO SCH (20:34)
[2018-10-12] MEDS: Cipro 250 MG TAB PO SCH (20:35)
[2018-10-12] MEDS ORDERED: cefTRIAXone\\ROCEPHIN 1 GM in Sodium Chloride 0.9% 100 ML IVPB SCH (21:00)
--- NOTE | 2018-10-13 03:04 | HP ---
CHIEF COMPLAINT: Weakness, poor appetite and generalized malaise. HISTORY OF PRESENT ILLNESS: This is a 63-year-old female patient who was just discharged from here having been treated for C diff and flu, went home and the son noted that the patient was not feeling well, not eating well, feeling very tired and decided to bring her back to the hospital. Otherwise, the patient claims to be feeling better now and eager to go home, however, preliminary blood culture seems to be growing staphylococcus. The patient's urinalysis is highly suggestive of significant urinary tract infection. The patient has now been admitted for further management and workup. PAST MEDICAL HISTORY AND FAMILY HISTORY AND SOCIAL HISTORY: Remains the same as the recent hospitalization. For details, refer to that. REVIEW OF SYSTEMS: As documented in the body of the history. All other systems were reviewed and found not to be significantly related to present illness. PHYSICAL EXAMINATION: GENERAL: The patient noted with the following vital signs; afebrile, temperature 98.6, pulse 76, respiratory rate of 18, O2 saturations are 98%, and blood pressure 146/92. HEENT: Unremarkable. CARDIOVASCULAR: First and second heart sounds were heard. RESPIRATORY: Clear to auscultation. DIGESTIVE: Revealed a benign abdomen with positive bowel sounds. EXTREMITIES: No peripheral edema. SKIN: No new gross rash. LYMPHATICS: No peripheral edema. NEUROLOGIC: Alert and oriented. No lateralizing sign. IMPRESSION: 1. Generalized malaise, query cause. 2. Urinary tract infection, trending towards sepsis. 3. Recent treatment of flu and Clostridium difficile colitis. 4. Obesity. PLAN: 1. Broad spectrum antibiotics. 2. Follow up of blood cultures. 3. Further management will be dependent on the clinical course. The code status is full. Job ID: [id number]
[2018-10-13] MEDS: Cipro 250 MG TAB PO SCH ×2 (05:33→20:36)
[2018-10-13 07:43] LABS: Hemoglobin 9.4 g/dL (12.0-16.0); Mean Corpuscular HGB CONC 31.4 g/dL (32.0-36.0); Mean Corpuscular Hemoglobin 29.6 pg (27.0-31.0); Mean Corpuscular Volume 94.3 fL (78.0-98.0); Mean Platelet Volume 9.5 fL (7.4-10.4); Platelet Count 217 thou/uL (130-400); RBC Distribution Width 16.6 % (11.5-14.5); Red Blood Cell (RBC) Count 3.16 mill/uL (4.20-5.40); White Blood Cell (WBC) Count 3.8 thou/uL (4.8-10.8)
[2018-10-13] MEDS: Gabapentin 300 MG CAP PO SCH ×3 (08:17→20:37)
[2018-10-13] MEDS: Enoxaparin Sodium 40 MG/0.4 ML SYRINGE SC SCH (08:17)
[2018-10-13] MEDS: Allopurinol 300 MG TAB PO SCH (08:18)
[2018-10-13] MEDS: Carvedilol 25 MG TAB PO SCH ×2 (08:18→20:43)
[2018-10-13] MEDS: Furosemide 40 MG TAB PO SCH ×2 (08:18→20:36)
[2018-10-13] MEDS: Fish Oil 1,000 MG CAP PO SCH (08:18)
[2018-10-13 09:02] LABS: Band 9 % (5-11); Eosinophils 17 % (0-10); Hypochromia SLIGHT = 6-15 cells (100X) (0-5/hpf); Lymphocytes 41 % (21-51); MDiff Complete? YES; Monocytes 20 % (0-10); Myelocyte 1 % (0-0); Neutrophil 11 % (42-75); Nucleated RBC 4 % (0); Platelet Morphology Comment Appears Adequate; Polychromasia SLIGHT = 2-3 cells (100X) (0-2/hpf)
[2018-10-13] MEDS ORDERED: PROVENTIL INHALER 6.7 G (200 INHALATIONS) INH PRN (09:36)
[2018-10-13] MEDS ORDERED: Zolpidem Tartrate 5 MG TAB PO PRN (09:36)
[2018-10-13] MEDS ORDERED: Promethazine 25 MG TAB PO PRN (09:36)
[2018-10-13] MEDS ORDERED: Non-Formulary Item 1 EACH (Ondansetron Hcl 4 MG) PO PRN (09:36)
[2018-10-13] MEDS ORDERED: HumaLOG 300 UNITS/3 ML VIAL SC PRN (09:36)
[2018-10-13] MEDS ORDERED: Non-Formulary Item 1 EACH (Loratadine [Claritin] 10 MG) PO PRN (09:36)
[2018-10-13] MEDS ORDERED: Dextrose 50% Abboject 50 ML SYRINGE SLOW IVP PRN (09:47)
[2018-10-13] MEDS ORDERED: Dextrose 5% in Water 1,000 ML IV PRN (09:47)
--- NOTE | 2018-10-13 10:20 | PRG ---
DATE OF SERVICE: 10/13/2018 SUBJECTIVE: The patient was seen and examined at the bedside. She feels somewhat better. She is asking when she can go home. She has cough and some shortness of breath and rubbing her chest. OBJECTIVE: VITAL SIGNS: Blood pressure is 108/67, temperature is 99.3, maximal temperature is 99.7, respiratory rate is 18, and O2 saturation is 95% on room air. HEENT: Head is atraumatic and normocephalic. Eyes are PERRLA. Sclerae nonicteric. Oral mucosa is moist. NECK: Supple. LUNGS: Bilateral rales and wheezing present. HEART: S1 and S2 normal. No S3. No S4. Tachycardic. ABDOMEN: Soft, nontender, and nondistended. EXTREMITIES: No clubbing, cyanosis, or edema. NEUROLOGIC: She follows my commands. No sensory or motor deficits present. Cranial nerves are intact. LABORATORY DATA: Labs showed white count of 3.8, hemoglobin 8.4, platelet count is 217, 17% of eosinophils. Glycemia is ranging from 151 to 250. Microbiology, 1/2 blood cultures came back positive for coagulase negative Staphylococcus, which is most likely contaminant. IMPRESSION: 1. Generalized malaise with low-grade fever, some symptoms of bronchitis, although, her urinalysis showed suspected infectious process, the culture was not done. We will obtain new specimen. We will send it for urinalysis and for urine culture. We will get the chest x-ray. Start DuoNebs and Mucinex for her lungs. 2. Recent treatment of flu and Clostridium difficile colitis. We will continue with vancomycin orally. 3. Obesity. 4. Diabetes mellitus, type 2. We will start sliding scale. We will get PT to evaluate and treat. Job ID: [id number]
[2018-10-13] MEDS ORDERED: Loratadine 10 MG TAB PO PRN (10:57)
--- NOTE | 2018-10-13 11:30 | PQF ---
MARVIN REEDER ZBIGNIEW A MD [id number] KATARZYNA ROLLINS [id number] CLINICAL DOCUMENTATION IMPROVEMENT CLARIFICATION FORM: ICD-10 Updated PLEASE DO AN ADDENDUM TO THE PROGRESS NOTE WITH ANY DOCUMENTATION UPDATES OR ADDITIONS AND CARRY THROUGH TO DC SUMMARY. THANK YOU. DATE: 10/13/2018 ATTN: DR. PLUNKETT Please exercise your independent, professional judgment in responding to the clarification form. Clinical indicators are provided on the bottom of this form for your review Please check appropriate box(s): I (concur) with the Wound Care findings as stated below. [X] Pressure Ulcer: Stage III: Full thickness [X] Location: SACRUM POA: [X] Yes [ ] No[ ] Unable to determine [ ] No pressure ulcer diagnosis [ ] Deep tissue injury [ ] Other diagnosis [ ] Unable to determine For continuity of documentation, please document condition throughout progress notes and discharge summary. Thank You. CLINICAL INDICATORS - SIGNS / SYMPTOMS / LABS 10/12-Nursing Note: Stage 3 Sacral Pressure Ulcer; Full Thickness with Slough RISK FACTORS: *Diabetes Mellitus- type II *Recent Hospitalization *Recent Flu and C-diff TREATMENTS: *Turning q2h *Continue indwelling Martinez *Barrier cream *Specialty mattress Thank You, Beverly (This form is maintained as a part of the permanent medical record) 2014 [employer] All Rights Reserved Beverly Bernabe RN, CDIS [email or web address] [phone] [email or web address]
--- NOTE | 2018-10-13 11:48 | PQF ---
[employer] Crystal Reports Winform ViewerDAVIS,UMA ESTEVEZ MD [id number] [facility] [id number] CLINICAL DOCUMENTATION IMPROVEMENT CLARIFICATION FORM: ICD-10 Updated PLEASE DO AN ADDENDUM TO THE PROGRESS NOTE WITH ANY DOCUMENTATION UPDATES OR ADDITIONS AND CARRY THROUGH TO DC SUMMARY. THANK YOU. DATE: 10/13/2018 ATTN: DR. PLUNKETT Please exercise your independent, professional judgment in responding to the clarification form. Clinical indicators are provided on the bottom of this form for your review Please check appropriate box(es): [ x] Sepsis due to: __x_Urinary Tract Infection Due to: [ ] Device (please specify) ___x____Indwelling Martinez Catheter [ ] Sepsis due to: ___Multifactorial [ ] Sepsis due to: [ ] SIRS due to non-infectious process (please specify etiology) ____ [ ] with organ dysfunction [ ] w/o organ dysfunction [ ] Severe sepsis with acute organ dysfunction of: (Examples: respiratory failure, encephalopathy, acute kidney failure, other) [ ] Septic Shock [ ] Localized infection without sepsis [ ] Other diagnosis [ ] Unable to determine In addition, please specify: Present on Admission (POA): [ ] Yes [ ] No [ ] Unable to determine For continuity of documentation, please document condition throughout progress notes and discharge summary. Thank You. CLINICAL INDICATORS - SIGNS / SYMPTOMS / LABS ER: Temp 100.5-100.9. RR-22, Pulse-92 on Initial Triage. Also states; Temp 102.9, Tachycardic at 105, RR increased. 10/11-Lab: WBC-2.3 with 14 Neuts and 2 Bands Positive blood cultures: Coagulase Neg Staphylococcus RISK FACTORS Recent Hospitalization Recent Flu and C-diff treatment Diabetes Mellitus; type II Indwelling Martinez Catheter Stage 3 Pressure Ulcer on Sacrum TREATMENTS: Ceftriaxone q24h IV Cipro po bid Vancomycin qid x 10d Blood/Urine cultures Thank You, Beverly (This form is maintained as a part of the permanent medical record) 2015 [employer] All Rights Reserved Beverly Bernabe RN, CDIS [email or web address] [phone] [email or web address]
[2018-10-13] MEDS: Vancomycin HCl 25 MG/ML Oral PO SCH ×3 (13:55→20:35)
[2018-10-13] MEDS: cefTRIAXone\\ROCEPHIN 1 GM in Sodium Chloride 0.9% 100 ML IVPB SCH (13:58)
[2018-10-13 15:02] LABS: Bilirubin Negative (Negative); Blood, Urine Small (Negative); Clarity CLOUDY (Clear); Glucose, Urine (Dipstick) Negative (Negative); Leukocyte Moderate (Negative); Nitrite Positive (Negative); Protein, Urine (Dipstick) Trace mg/dL (Neg-Trace); Specific Gravity, Urine 1.008 (1.002-1.036); Urobilinogen 0.2 mg/dL (0.2-1.0); pH, Urine 5.5 (5.0-9.0)
[2018-10-13 15:05] LABS: Bacteria/HPF 2+ HPF (None Seen); RBC/HPF 0-3 HPF (0-3); Squamous Epithelial 0-3 HPF (0-3); WBC/HPF 21-50 HPF (0-3)
[2018-10-13 15:06] LABS: Pathc Cast-AUWi Flag 4.36 (0-2.49)
[2018-10-13 15:13] LABS: Hyaline Casts/LPF 0-3 HYALINE CAST LPF (0-3 Hyaline); Other Casts/LPF None Seen LPF (0-3 Hyaline)
[2018-10-13] MEDS: Mometasone/Formoterol 120 PUFF INHALER INH SCH (19:24)
[2018-10-13] MEDS: guaiFENesin ER 600 MG TAB PO SCH (20:36)
[2018-10-13] MEDS: diphenhydrAMINE 25 MG CAP PO SCH (20:36)
[2018-10-13] MEDS: Acetaminophen 500 MG TAB PO SCH (20:36)
[2018-10-13] MEDS: Insulin Regular 300 UNITS/3 ML VIAL SC PRN (23:13)
[2018-10-14 04:09] LABS: ALT (SGPT) 55 U/L (8-55); AST (SGOT) 39 U/L (5-34); Albumin 2.8 g/dL (3.4-4.8); Alkaline Phosphatase 110 U/L (40-150); Anion Gap 11 mmol/L (10-20); BUN (Urea Nitrogen) 9 mg/dL (9.8-20.1); Bilirubin, Total 0.6 mg/dL (0.2-1.2); Calc. Creatinine Clearance 81 mL/min (70-130); Calcium 8.6 mg/dL (7.8-10.44); Carbon Dioxide 30 mmol/L (23-31); Chloride 99 mmol/L (98-107); Estimated GFR-MDRD 67; Globulin 3.9 g/dL (2.4-3.5); Glucose 142 mg/dL (80-115); Protein, Total 6.7 g/dL (6.0-8.3); Sodium 138 mmol/L (136-145)
[2018-10-14 04:18] LABS: Band 5 % (5-11); Hemoglobin 8.8 g/dL (12.0-16.0); Hypochromia SLIGHT = 6-15 cells (100X) (0-5/hpf); Lymphocytes 21 % (21-51); MDiff Complete? YES; Mean Corpuscular HGB CONC 32.5 g/dL (32.0-36.0); Mean Corpuscular Hemoglobin 30.2 pg (27.0-31.0); Mean Corpuscular Volume 92.9 fL (78.0-98.0); Mean Platelet Volume 8.8 fL (7.4-10.4); Monocytes 16 % (0-10); Neutrophil 58 % (42-75); Platelet Count 180 thou/uL (130-400); Platelet Morphology Comment Appears Adequate; Potassium 2.3 mmol/L (3.5-5.1); RBC Distribution Width 16.5 % (11.5-14.5); Red Blood Cell (RBC) Count 2.92 mill/uL (4.20-5.40); White Blood Cell (WBC) Count 5.2 thou/uL (4.8-10.8)
[2018-10-14] MEDS ORDERED: Benzonatate 100 MG CAP PO PRN (04:51)
[2018-10-14] MEDS: Potassium Chloride 20 MEQ TAB PO SCH ×3 (05:02→09:33)
[2018-10-14] MEDS: Cipro 250 MG TAB PO SCH ×2 (05:03→23:39)
[2018-10-14] MEDS: Mometasone/Formoterol 120 PUFF INHALER INH SCH ×2 (07:07→19:34)
[2018-10-14] MEDS ORDERED: [UNRECOGNIZED DRUG - OTHER] PO SCH (09:00)
[2018-10-14] MEDS ORDERED: IRON FUM PS PO SCH (09:00)
[2018-10-14] MEDS ORDERED: Potassium Chloride 20 MEQ TAB PO SCH ×2 (09:00→14:00)
[2018-10-14] MEDS ORDERED: FOLIC PO SCH (09:00)
[2018-10-14] MEDS ORDERED: Non-Formulary Item 1 EACH (Valsartan [Valsartan] 160 MG) PO SCH (09:00)
[2018-10-14] MEDS: Stress 600 With Zinc 1 TAB PO SCH (09:01)
[2018-10-14] MEDS: Gabapentin 300 MG CAP PO SCH ×3 (09:01→21:19)
[2018-10-14] MEDS: Valsartan 80 MG TAB PO SCH (09:01)
[2018-10-14] MEDS: Furosemide 40 MG TAB PO SCH ×2 (09:02→21:20)
[2018-10-14] MEDS: Saccharomyces boulardii 250 MG CAP PO SCH (09:02)
[2018-10-14] MEDS: Allopurinol 300 MG TAB PO SCH (09:02)
[2018-10-14] MEDS: Carvedilol 25 MG TAB PO SCH ×2 (09:02→21:18)
[2018-10-14] MEDS: Fish Oil 1,000 MG CAP PO SCH (09:02)
[2018-10-14] MEDS: Rosuvastatin 20 MG TAB PO SCH (09:02)
[2018-10-14] MEDS: guaiFENesin ER 600 MG TAB PO SCH ×2 (09:02→21:19)
[2018-10-14] MEDS: Enoxaparin Sodium 40 MG/0.4 ML SYRINGE SC SCH (09:03)
[2018-10-14] MEDS: Vancomycin HCl 25 MG/ML Oral PO SCH ×4 (09:03→21:18)
[2018-10-14] MEDS: Acetaminophen 325 MG TAB PO PRN (09:33)
[2018-10-14] MEDS: cefTRIAXone\\ROCEPHIN 1 GM in Sodium Chloride 0.9% 100 ML IVPB SCH (14:28)
--- NOTE | 2018-10-14 15:33 | PRG ---
DATE OF SERVICE: 10/14/2018 SUBJECTIVE: The patient is seen and examined at the bedside. She is feeling better, but she her temperature was up to 100.6 yesterday at 4 o'clock. Today, is down to 99.0. OBJECTIVE: HEAD: Atraumatic and normocephalic. Pupils are responding to light properly. Sclerae are nonicteric. Oral mucosa is moist. NECK: Supple. LUNGS: Bilateral rales present. HEART: S1, S2 normal. No S3. No S4. ABDOMEN: Soft, obese, nontender. EXTREMITIES: No clubbing, cyanosis, or edema. NEUROLOGICAL: She follows my commands. She moves all four extremities. There is no motor deficit. LABORATORY DATA: Labs showed white count of 5.2, hemoglobin 8.8, hematocrit 27.1, platelet count is 180,000. No bands. Sodium of 138, potassium 2.3, chloride 99, CO2 of 30, creatinine 1.1, and BUN of 9. Glycemia is ranging from 139 to 221, magnesium 1.5, AST 39, globulin 3.9, and albumin 2.8. Procalcitonin 0.36. Microbiology, urine culture is growing more than 100,000 colonies of gram-negative rods. Blood cultures 1/2 coagulase-negative Staphylococcus aureus considered contamination and the other culture of blood is negative in 48 hours. IMPRESSION: 1. Generalized malaise and low-grade fever with symptoms of bronchitis, but also with positive urine culture for gram-negative rods. 2. Recent treatment for flu and Clostridium difficile colitis, currently on vancomycin orally. 3. Obesity. 4. Diabetes mellitus type 2. 5. Urinary tract infection. 6. Hypomagnesemia. Get PT and OT. We will discontinue Martinez catheter. We will start incentive spirometry. We will continue her breathing treatments. We will start her on steroids for her bronchitis since she is not responding well to just nebulizers, and we will supplement magnesium with 400 mg of magnesium oxide twice a day. We will continue both antibiotics and by tomorrow, we should have more specific answers regarding the type of bacteria and the sensitivity. Job ID: [id number]
[2018-10-14] MEDS ORDERED: Magnesium Oxide 400 MG TAB PO SCH (21:00)
[2018-10-14] MEDS: diphenhydrAMINE 25 MG CAP PO SCH (21:19)
[2018-10-14] MEDS: Acetaminophen 500 MG TAB PO SCH (21:20)
[2018-10-14] MEDS ORDERED: Cipro 250 MG TAB PO SCH (23:00)
[2018-10-15] MEDS: Cipro 250 MG TAB PO SCH ×2 (06:15→20:42)
[2018-10-15] MEDS: Insulin Regular 300 UNITS/3 ML VIAL SC PRN (06:16)
[2018-10-15 06:45] LABS: Anion Gap 13 mmol/L (10-20); BUN (Urea Nitrogen) 6 mg/dL (9.8-20.1); Calc. Creatinine Clearance 99 mL/min (70-130); Calcium 8.7 mg/dL (7.8-10.44); Carbon Dioxide 25 mmol/L (23-31); Chloride 101 mmol/L (98-107); Estimated GFR-MDRD 84; Glucose 170 mg/dL (80-115); Potassium 3.1 mmol/L (3.5-5.1); Sodium 136 mmol/L (136-145)
[2018-10-15 06:46] LABS: Band 12 % (5-11); Eosinophils 9 % (0-10); Hemoglobin 8.9 g/dL (12.0-16.0); Lymphocytes 34 % (21-51); MDiff Complete? YES; Mean Corpuscular HGB CONC 32.9 g/dL (32.0-36.0); Mean Corpuscular Hemoglobin 30.4 pg (27.0-31.0); Mean Corpuscular Volume 92.6 fL (78.0-98.0); Mean Platelet Volume 9.9 fL (7.4-10.4); Metamyelocyte 1 % (0-0); Monocytes 12 % (0-10); Myelocyte 2 % (0-0); Neutrophil 27 % (42-75); Platelet Count 161 thou/uL (130-400); Platelet Morphology Comment Appears Adequate; RBC Distribution Width 16.4 % (11.5-14.5); Red Blood Cell (RBC) Count 2.93 mill/uL (4.20-5.40)
[2018-10-15] MEDS: Mometasone/Formoterol 120 PUFF INHALER INH SCH ×2 (07:49→20:03)
[2018-10-15] MEDS: Enoxaparin Sodium 40 MG/0.4 ML SYRINGE SC SCH (09:46)
[2018-10-15] MEDS: Fish Oil 1,000 MG CAP PO SCH (09:46)
[2018-10-15] MEDS: Vancomycin HCl 25 MG/ML Oral PO SCH ×4 (09:46→22:23)
[2018-10-15] MEDS: Gabapentin 300 MG CAP PO SCH ×3 (09:47→20:40)
[2018-10-15] MEDS: Rosuvastatin 20 MG TAB PO SCH (09:47)
[2018-10-15] MEDS: Carvedilol 25 MG TAB PO SCH ×2 (09:47→20:41)
[2018-10-15] MEDS: Saccharomyces boulardii 250 MG CAP PO SCH (09:47)
[2018-10-15] MEDS: Stress 600 With Zinc 1 TAB PO SCH (09:47)
[2018-10-15] MEDS: Valsartan 80 MG TAB PO SCH (09:47)
[2018-10-15] MEDS: Magnesium Oxide 400 MG TAB PO SCH ×2 (09:48→22:23)
[2018-10-15] MEDS: Furosemide 40 MG TAB PO SCH ×2 (09:48→20:41)
[2018-10-15] MEDS: guaiFENesin ER 600 MG TAB PO SCH ×2 (09:48→20:41)
[2018-10-15] MEDS: Allopurinol 300 MG TAB PO SCH (09:48)
[2018-10-15] MEDS: Potassium Chloride 20 MEQ TAB PO SCH (09:51)
[2018-10-15] MEDS ORDERED: Potassium Chloride 20 MEQ TAB PO SCH (12:00)
--- NOTE | 2018-10-15 12:51 | PRG ---
DATE OF SERVICE: 10/15/2018 SUBJECTIVE: The patient is seen and examined at the bedside. She is improving daily. She had bowel movement which was normal. She can eat. There is no nausea, no vomiting. There is no fever. She is happy from the progress we are making. OBJECTIVE: VITAL SIGNS: Blood pressure is 111/77, pulse is 93, respiratory rate is 16, O2 saturation is 93% on room air. HEENT: Her pupils are responding to light properly. Sclerae are nonicteric. Oral mucosa is moist. NECK: Supple, obese. LUNGS: Breath sounds significantly improves from yesterday. Her rales just scattered now, not like yesterday. HEART: S1 and S2 normal. No S3. No S4. ABDOMEN: Obese, nontender. Bowel sounds are present. No organomegaly. EXTREMITIES: No clubbing, cyanosis, or edema. NEUROLOGIC: She is alert and oriented x4. There are no any motor deficits. Cranial nerves are intact. LABORATORY DATA: Labs showed white count of 5.0, hemoglobin of 8.9, hematocrit 27.1, platelet count is 161,000. Sodium of 136, potassium 3.1, chloride 101, CO2 is 25, BUN is 6, creatinine 0.83. Glycemia is ranging from 139 to 330. Calcium is 8.7, and magnesium was 1.5 yesterday. Microbiology; her urine culture is growing 2 organisms: 1. Gram-negative rods more than 100,000 colonies. 2. Presumptive E coli more than 100,000 colonies. IMPRESSION: 1. Generalized malaise and low-grade fever with symptoms of bronchitis and urinary tract infection, generally improved. 2. Clostridium difficile colitis, on vancomycin treatment, currently continued. 3. Acute bronchitis, significantly improved. 4. Diabetes mellitus. 5. Hypokalemia. 6. Hypomagnesemia. Urinary tract infection with 2 organisms. The final on the urine culture is still pending. PLAN: Plan is to continue her 2 antibiotics, Cipro and Rocephin and to have final culture on her urine. Clinically, she is improving daily. Her inhaled steroids in form of Dulera 2 puffs twice a day. We will continue potassium supplementation. She will have 2 doses of KCl 40 mEq each. We will continue PT, most likely with the final culture results by tomorrow. She should be able to be discharged home soon. Job ID: [id number]
[2018-10-15] MEDS: cefTRIAXone\\ROCEPHIN 1 GM in Sodium Chloride 0.9% 100 ML IVPB SCH (14:07)
[2018-10-15] MEDS: diphenhydrAMINE 25 MG CAP PO SCH (20:41)
[2018-10-15] MEDS: Acetaminophen 500 MG TAB PO SCH (20:41)
[2018-10-16] MEDS: Cipro 250 MG TAB PO SCH ×2 (06:24→21:20)
[2018-10-16] MEDS: Insulin Regular 300 UNITS/3 ML VIAL SC PRN ×4 (06:24→21:23)
[2018-10-16] MEDS: Mometasone/Formoterol 120 PUFF INHALER INH SCH ×2 (07:38→18:29)
[2018-10-16 08:22] LABS: #Eosinphils 0.3 thou/uL (0.0-0.7); #Lymphocytes 1.4 thou/uL (1.20-3.40); #Monocytes 0.6 thou/uL (0.11-0.59); #Neutrophils 2.8 thou/uL (1.40-6.50); %Basophils 0.7 % (0.0-1.0); %Eosinophils 6.6 % (0.0-10.0); %Lymphocytes 27.7 % (21.0-51.0); %Monocytes 11.4 % (0.0-10.0); %Neutrophils 53.6 % (42.0-75.0); Hemoglobin 8.7 g/dL (12.0-16.0); Mean Corpuscular HGB CONC 30.8 g/dL (32.0-36.0); Mean Corpuscular Hemoglobin 28.9 pg (27.0-31.0); Mean Corpuscular Volume 93.9 fL (78.0-98.0); Mean Platelet Volume 9.7 fL (7.4-10.4); Platelet Count 197 thou/uL (130-400); RBC Distribution Width 16.4 % (11.5-14.5); Red Blood Cell (RBC) Count 3.02 mill/uL (4.20-5.40); White Blood Cell (WBC) Count 5.1 thou/uL (4.8-10.8)
[2018-10-16] MEDS: Vancomycin HCl 25 MG/ML Oral PO SCH ×4 (08:22→21:23)
[2018-10-16] MEDS: Stress 600 With Zinc 1 TAB PO SCH (08:22)
[2018-10-16] MEDS: Gabapentin 300 MG CAP PO SCH ×3 (08:23→21:20)
[2018-10-16] MEDS: Allopurinol 300 MG TAB PO SCH (08:23)
[2018-10-16] MEDS: Valsartan 80 MG TAB PO SCH (08:23)
[2018-10-16] MEDS: guaiFENesin ER 600 MG TAB PO SCH ×2 (08:23→21:21)
[2018-10-16] MEDS: Potassium Chloride 20 MEQ TAB PO SCH (08:24)
[2018-10-16] MEDS: Magnesium Oxide 400 MG TAB PO SCH ×2 (08:24→21:21)
[2018-10-16] MEDS: Rosuvastatin 20 MG TAB PO SCH (08:24)
[2018-10-16] MEDS: Carvedilol 25 MG TAB PO SCH ×2 (08:24→21:21)
[2018-10-16] MEDS: Fish Oil 1,000 MG CAP PO SCH (08:24)
[2018-10-16] MEDS: Saccharomyces boulardii 250 MG CAP PO SCH (08:27)
[2018-10-16] MEDS: Enoxaparin Sodium 40 MG/0.4 ML SYRINGE SC SCH (08:27)
[2018-10-16 08:42] LABS: Anion Gap 13 mmol/L (10-20); BUN (Urea Nitrogen) 9 mg/dL (9.8-20.1); Calc. Creatinine Clearance 99 mL/min (70-130); Calcium 8.9 mg/dL (7.8-10.44); Carbon Dioxide 24 mmol/L (23-31); Chloride 103 mmol/L (98-107); Estimated GFR-MDRD 84; Glucose 162 mg/dL (80-115); Magnesium 1.6 mg/dL (1.6-2.6); Potassium 3.3 mmol/L (3.5-5.1); Sodium 137 mmol/L (136-145)
[2018-10-16] MEDS ORDERED: Potassium Chloride 20 MEQ TAB PO SCH (09:00)
[2018-10-16] MEDS: Furosemide 40 MG TAB PO SCH ×2 (09:46→21:22)
[2018-10-16] MEDS: Ondansetron ODT 4 MG TAB PO PRN (12:04)
[2018-10-16] MEDS: cefTRIAXone\\ROCEPHIN 1 GM in Sodium Chloride 0.9% 100 ML IVPB SCH (14:40)
[2018-10-16] MEDS: Acetaminophen 500 MG TAB PO SCH (21:20)
[2018-10-16] MEDS: diphenhydrAMINE 25 MG CAP PO SCH (21:21)
--- NOTE | 2018-10-16 21:32 | PDOC.PN ---
- Subjective Encounter Start Date: 10/16/18 Encounter Start Time: 16:00 Patient seen and examined for Gen weakness. Feels slightly better. Productive cough +. No new complaints. No overnight events - Objective Resuscitation Status - Order Detail: 10/16/18 17:44 Resuscitation Status Routine Resuscitation Status: DNAR: NO Resuscitation Discussed with: Confirmed with patient - OOH - DNR in chart MAR Reviewed: Yes Vital Signs & Weight: Vital Signs (12 hours) Temp Pulse Resp BP Pulse Ox 10/16/18 20:14 99.3 F 107 H 16 120/80 95 10/16/18 18:25 110 H 18 96 10/16/18 16:00 99 F 104 H 19 99/44 L 96 10/16/18 13:59 88 24 H 10/16/18 10:59 98 F 100 18 96/56 L 96 Weight Admit Weight 196 lb 6.4 oz Weight 196 lb 6.4 oz I&O: 10/15/18 10/16/18 10/17/18 06:59 06:59 06:59 Intake Total 2050 3110 1300 Output Total 200 Balance 1850 3110 1300 Result Diagrams: 10/16/18 07:35 10/16/18 07:35 Additional Labs: Accuchecks 10/16/18 10/16/18 16:07 04:48 POC Glucose 170 H 180 H Phys Exam - Physical Examination Constitutional: NAD Respiratory: no wheezing, no rales Scat rhonchi Cardiovascular: RRR, no rub Gastrointestinal: soft, non-tender, positive bowel sounds Neurological: moves all 4 limbs Dx/Plan (1) Sepsis with acute organ dysfunction Code(s): A41.9 - SEPSIS, UNSPECIFIED ORGANISM; R65.20 - SEVERE SEPSIS WITHOUT SEPTIC SHOCK Status: Acute (2) C. difficile colitis Status: Acute (3) Influenza A Code(s): J10.1 - FLU DUE TO OTH IDENT INFLUENZA VIRUS W OTH RESP MANIFEST Status: Acute (4) Electrolyte abnormality Code(s): E87.8 - OTH DISORDERS OF ELECTROLYTE AND FLUID BALANCE, NEC Status: Acute Comment: Hypokalemia/ Hypomagnesemia (5) Other issues per previous notes - Plan cont current plan of care, continue antibiotics, PT/OT, DVT proph w/lovenox, DVT proph w/SCDs Cont Zosyn and PO Vancomycin -: Await Placement -: Cont other meds as below -: Replace Potassium Review of Systems - Review of Systems Cardiovascular: negative: chest pain, palpitations, orthopnea, paroxysmal nocturnal dyspnea, edema, light headedness, other Gastrointestinal: negative: Nausea, Vomiting, Abdominal Pain, Diarrhea, Constipation, Melena, Hematochezia, Other - Medications/Allergies Allergies/Adverse Reactions: Allergies Allergy/AdvReac Type Severity Reaction Status Date / Time acetaminophen [From Vicodin] Allergy Verified 10/12/18 04:19 codeine Allergy Stomach Verified 10/12/18 04:18 Ache hydrocodone [From Vicodin] Allergy Verified 10/12/18 04:18 morphine Allergy Stomach Verified 10/12/18 04:18 Ache Sulfa (Sulfonamide Allergy Stomach Verified 10/12/18 04:18 Antibiotics) Ache tramadol Allergy Stomach Verified 10/12/18 04:18 Ache Medications: Current Medications Acetaminophen (Tylenol) 500 mg PO HS [facility] Last Admin: 10/15/18 20:41 Dose: 500 mg Acetaminophen (Tylenol) 650 mg PO Q6H PRN PRN Reason: Mild Pain (1-3) Last Admin: 10/14/18 09:33 Dose: 650 mg Albuterol Sulfate (Proventil Hfa) 2 puff INH Q6H PRN PRN Reason: SOB &/or Wheezing Albuterol/Ipratropium (Duoneb) 3 ml NEB QID PRN PRN Reason: SOB &/or Wheezing Albuterol/Ipratropium (Duoneb) 3 ml NEB [id number] [facility] Last Admin: 10/16/18 18:25 Dose: 3 ml Allopurinol (Zyloprim) 300 mg PO DAILY [facility] Last Admin: 10/16/18 08:23 Dose: 300 mg Benzonatate (Tessalon) 200 mg PO Q6H PRN PRN Reason: Cough Last Admin: 10/14/18 05:02 Dose: 200 mg Carvedilol (Coreg) 25 mg PO BID [facility] Last Admin: 10/16/18 08:24 Dose: Not Given Ciprofloxacin (Cipro) 250 mg PO 0600,1999 [facility] Last Admin: 10/16/18 06:24 Dose: 250 mg Dextrose/Water (Dextrose 50%) 25 gm SLOW IVP PRN PRN PRN Reason: Hypoglycemia Diphenhydramine HCl (Benadryl) 25 mg PO HS [facility] Last Admin: 10/15/18 20:41 Dose: 25 mg Enoxaparin Sodium (Lovenox) 40 mg SC 0900 [facility] Last Admin: 10/16/18 08:27 Dose: 40 mg Fish Oil (Fish Oil) 1,000 mg PO DAILY [facility] Last Admin: 10/16/18 08:24 Dose: 1,000 mg Furosemide (Lasix) 40 mg PO BID [facility] Last Admin: 10/16/18 09:46 Dose: Not Given Gabapentin (Neurontin) 600 mg PO TID [facility] Last Admin: 10/16/18 14:39 Dose: 600 mg Glucagon (Glucagon) 1 mg IM PRN PRN PRN Reason: Hypoglycemia Guaifenesin (Mucinex) 1,200 mg PO Q12HR [facility] Last Admin: 10/16/18 08:23 Dose: 1,200 mg Dextrose/Water (D5w) 1,000 mls @ 0 mls/hr IV .Q0M PRN PRN Reason: Hypoglycemia Ceftriaxone Sodium 1 gm/ (Sodium Chloride) 100 mls @ 200 mls/hr IVPB 1400 [facility] Last Admin: 10/16/18 14:40 Dose: 100 mls Insulin Human Lispro (Humalog) 0 units SC ASDIR PRN PRN Reason: Hyperglycemia Insulin Human Regular (Humulin R) 0 units SC .MILD SLIDING SCALE PRN PRN Reason: Mild Correctional Scale Last Admin: 10/16/18 17:21 Dose: 2 unit Loratadine (Claritin) 10 mg PO DAILYPRN PRN PRN Reason: Allergies Last Admin: 10/13/18 13:57 Dose: 10 mg Magnesium Oxide (Magnesium Oxide) 400 mg PO 0900,2200 [facility] Last Admin: 10/16/18 08:24 Dose: 400 mg Mometasone Furoate/Formoterol Fumar (Dulera 200 Mcg/5 Mcg Inhaler) 2 puff INH BID-RT [facility] Last Admin: 10/16/18 18:29 Dose: 2 puff Multivitamins/Zinc (Stress 600 With Zinc) 1 tab PO DAILY [facility] Last Admin: 10/16/18 08:22 Dose: 1 tab Ondansetron HCl (Zofran) 4 mg IVP Q6H PRN PRN Reason: Nausea/Vomiting Ondansetron HCl (Zofran Odt) 4 mg PO Q4H PRN PRN Reason: Nausea/Vomiting Last Admin: 10/16/18 12:04 Dose: 4 mg Pantoprazole Sodium (Protonix) 40 mg PO DAILY [facility] Last Admin: 10/16/18 08:23 Dose: 40 mg Potassium Chloride (K-Dur) 40 meq PO DAILY [facility] Last Admin: 10/16/18 08:24 Dose: 40 meq Promethazine HCl (Phenergan) 25 mg PO Q4HR PRN PRN Reason: Nausea/Vomiting Rosuvastatin Calcium (Crestor) 20 mg PO DAILY [facility] Last Admin: 10/16/18 08:24 Dose: 20 mg Saccharomyces Boulardii (Florastor) 250 mg PO DAILY [facility] Last Admin: 10/16/18 08:27 Dose: 250 mg Sodium Chloride (Flush - Normal Saline) 10 ml IVF Q12HR [facility] Last Admin: 10/16/18 08:29 Dose: 10 ml Sodium Chloride (Flush - Normal Saline) 10 ml IVF PRN PRN PRN Reason: Saline Flush Last Admin: 10/16/18 14:42 Dose: 10 ml Valganciclovir (Valcyte) 900 mg PO BID [facility] Last Admin: 10/16/18 08:29 Dose: 900 mg Valsartan (Diovan) 160 mg PO DAILY [facility] Last Admin: 10/16/18 08:23 Dose: Not Given Vancomycin HCl (First Vancomycin) 125 mg PO QID [facility] Stop: 10/23/18 13:01 Last Admin: 10/16/18 17:20 Dose: 125 mg Zolpidem Tartrate (Ambien) 5 mg PO HSPRN PRN PRN Reason: Insomnia Zolpidem Tartrate (Ambien) 5 mg PO HS PRN PRN Reason: Insomnia
[2018-10-17] MEDS: Cipro 250 MG TAB PO SCH (05:48)
[2018-10-17] MEDS: Insulin Regular 300 UNITS/3 ML VIAL SC PRN ×2 (06:38→13:21)
[2018-10-17] MEDS: Mometasone/Formoterol 120 PUFF INHALER INH SCH ×2 (08:37→18:32)
[2018-10-17] MEDS: Vancomycin HCl 25 MG/ML Oral PO SCH ×4 (08:45→21:14)
[2018-10-17] MEDS: guaiFENesin ER 600 MG TAB PO SCH ×2 (08:45→21:14)
[2018-10-17] MEDS: Magnesium Oxide 400 MG TAB PO SCH ×2 (08:46→21:14)
[2018-10-17] MEDS: Potassium Chloride 20 MEQ TAB PO SCH (08:46)
[2018-10-17] MEDS: Stress 600 With Zinc 1 TAB PO SCH (08:46)
[2018-10-17] MEDS: Allopurinol 300 MG TAB PO SCH (08:46)
[2018-10-17] MEDS: Gabapentin 300 MG CAP PO SCH ×3 (08:46→21:14)
[2018-10-17] MEDS: Rosuvastatin 20 MG TAB PO SCH (08:46)
[2018-10-17] MEDS: Saccharomyces boulardii 250 MG CAP PO SCH (08:46)
[2018-10-17] MEDS: Furosemide 40 MG TAB PO SCH ×2 (08:47→21:14)
[2018-10-17] MEDS: Enoxaparin Sodium 40 MG/0.4 ML SYRINGE SC SCH (08:47)
[2018-10-17] MEDS: Fish Oil 1,000 MG CAP PO SCH (08:47)
[2018-10-17] MEDS: Carvedilol 25 MG TAB PO SCH ×2 (08:51→21:13)
[2018-10-17] MEDS: Valsartan 80 MG TAB PO SCH (08:52)
[2018-10-17] MEDS: Acetaminophen 325 MG TAB PO PRN (08:56)
--- NOTE | 2018-10-17 09:21 | PRG ---
DATE OF SERVICE: 10/17/2018 SUBJECTIVE: The patient is seen and examined at the bedside. She is feeling better. She does not have much complaints to offer except for the cough with some mucus production. Her appetite is fair. OBJECTIVE: VITAL SIGNS: Blood pressure is 109/71, pulse is 102, respiratory rate is 20, O2 saturation 97% on room air, and temperature is 99.3, maximal temperature 99.3. HEENT: Head is atraumatic and normocephalic. Eyes are PERRLA. Sclerae are nonicteric. Oral mucosa is moist. NECK: Supple. LUNGS: Few wheezes and crackles bilaterally. HEART: S1 and S2 normal. No S3. No S4. ABDOMEN: Soft, obese, slightly distended, and nontender. EXTREMITIES: No clubbing, cyanosis, or edema. NEUROLOGIC: She follows my commands. She is able to move her all 4 extremities. There are no any motor deficits. LABORATORY DATA: Glycemia is ranging from 172 to 192. Microbiology, urine culture is growing Klebsiella pneumoniae and Escherichia coli. Escherichia coli is very resistant to most antibiotics. IMPRESSION: 1. Sepsis with acute organ dysfunction. 2. Clostridium difficile colitis. 3. Influenza A. 4. Hypokalemia. 5. Hypomagnesemia, improved. 6. History of multiple myeloma. PLAN: She is switched to Zosyn since she is growing Escherichia coli, which is resistant to most antibiotics. Levofloxacin was stopped and Cipro stopped. We will obtain ID consultation with Dr. Pereira since she is still running a low-grade temperature and will continue vancomycin orally for Clostridium difficile. We will continue diabetic regimen and continue PT and OT. Job ID: [id number]
[2018-10-17] MEDS ORDERED: Piperacillin/Tazobactam 3.375 GM in Sodium Chloride 0.9% 100 ML IVPB SCH (12:00)
--- NOTE | 2018-10-17 13:05 | EKG ---
Test Reason : Blood Pressure : / mmHG Vent. Rate : 104 BPM Atrial Rate : 104 BPM P-R Int : 130 ms QRS Dur : 078 ms QT Int : 332 ms P-R-T Axes : 000 122 091 degrees QTc Int : 436 ms Sinus tachycardia Left posterior fascicular block Nonspecific ST and T wave abnormality Abnormal ECG No ST changes Confirmed by NATHANIEL JONES ([id number]), manuscript editor MARGE ELLISON ([id number]) on 10/17/2018 1:05:19 PM Referred By: Confirmed By:NATHANIEL JONES
--- NOTE | 2018-10-17 18:20 | CON ---
DATE OF CONSULTATION: 10/17/2018 REASON FOR CONSULTATION: Weakness and positive blood cultures. HISTORY OF PRESENT ILLNESS: A 63-year-old patient known to me from prior visits , who has a history of multiple myeloma, prior recurrent salmonella bacteremia, then admission for management of pneumonia with extensive workup and response to usual antimicrobials for community-acquired pneumonia. Then on October 04, she was brought in with cough and was diagnosed with influenza A. In addition to that, she had a positive cytomegalovirus viremia and herpes simplex virus ulcerations, which are chronic in the perineal area. She was discharged on Zofran, Phenergan, allopurinol, Coreg, gabapentin, Claritin, potassium, Crestor, valsartan, Dulera, Valcyte, and vancomycin. She is readmitted 2 days after discharge with decreased oral intake , malaise, and fatigue. One set of blood cultures has returned positive for coagulase-negative Staph. Otherwise, she is sitting by the window in her room. She is feeling better. Wants to go home. No headaches. No visual symptoms. No vomiting. No sore throat, odynophagia, or dysphagia. No dyspnea or chest pain. No diarrhea. No genitourinary symptoms. PAST MEDICAL HISTORY: Multiple myeloma, prior C. 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 PAST SURGICAL HISTORY: Includes , left knee surgery, tubal ligation, and colonoscopy. ALLERGIES: SULFA DRUGS, TRAMADOL, AND VICODIN. SOCIAL HISTORY: [facility] resident. Never smoker. FAMILY HISTORY: Noncontributory. CURRENT MEDICATIONS: 1. Tylenol. 2. Proventil. 3. DuoNeb. 4. Zyloprim. 5. Tessalon. 6. Coreg. 7. Dextrose. 8. Lovenox. 9. Neurontin. 10. Glucagon. 11. Insulin. 12. Mometasone. 13. Zosyn. 14. Valganciclovir. PHYSICAL EXAMINATION: VITAL SIGNS: T-max 100.6 and she is now 99.3, BP 109/71, pulse 99, respirations 18, and O2 saturation 97%. SKIN: Shows the areas of ulceration in the perineal area, which are improving steadily with treatment. She has a peripheral IV access. No Martinez catheter and she did have an indwelling Martinez, but that has been removed. HEENT: No lymphadenopathy. Ocular movements conjugate. Oral cavity normal. GENERAL: She appears in no distress. NECK: Supple. LUNGS: Symmetric, clear breath sounds. HEART: S1 and S2. Regular rate. No S3 or S4. ABDOMEN: Soft. Not distended or tender. No ascites. No bladder distention. EXTREMITIES: Moves extremities equally. No edema. NEUROLOGIC: Cognitive function appears to be intact. LABORATORY DATA: White cell count is at 5.1, hemoglobin 8.7, and platelets 197, 000 with normal differential. Chemistry; creatinine 0.83, bilirubin 0.6, AST 39, ALT 55, and alkaline phosphatase 110. Microbiology, 1 or 2 sets of blood cultures are coagulase-negative Staph. Urine Martinez catheter with 2 different organisms, Klebsiella and E. coli. ASSESSMENT: 1. Multiple myeloma. 2. Immunosuppression. 3. 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 4. Cytomegalovirus viremia associated with immunosuppression. 5. Herpes simplex virus, chronic perineal skin ulcers. 6. Recent episode of influenza A. 7. General malaise. 8. Bacteremia. DISCUSSION: The nbacteremia can be disregarded since it is likely to represent just contamination of the sample rather than true bacteremia. The patient does not need antimicrobial therapy for treatment of the urinary tract findings. At this point, I believe those do not reflect invasive process. She should continue taking Valcyte for the both the CMV viremia and I think she has completed the induction phase and now should be on 900 mg daily of Valcyte with followup CMV viral titers, DNA/PCR that is quantitation in next few weeks. I can order it in the outpatient setting. The Valcyte will cover also these herpes simplex skin ulcers treatment. Influenza A can have a protracted clinical course in patients with immunosuppressive illness and may have to extend treatment with neuraminidase inhibitor. Job ID: [id number] [facility]
[2018-10-17] MEDS: diphenhydrAMINE 25 MG CAP PO SCH (21:13)
[2018-10-17] MEDS: Acetaminophen 500 MG TAB PO SCH (21:13)
--- NOTE | 2018-10-17 22:49 | CON ---
DATE OF CONSULTATION: 10/17/2018 INDICATION FOR CONSULTATION: Clostridium difficile infection. CONSULTING PHYSICIAN: Dr. Shmuel Gilliam. HISTORY OF PRESENT ILLNESS: The patient is a 63-year-old woman with a past medical history of multiple myeloma, diabetes, community-acquired pneumonia, cytomegalovirus infection with viremia, recent influenza A infection, chronic herpes simplex virus and ulceration and prior C difficile infection, who initially presented to the hospital with altered mental status and hypotension. She was admitted to the hospital in the beginning of September of 2018 and during this hospital workup, she was noted to have increased loose stools. Infectious stool study testing yielded a positive study for Clostridium difficile and she was subsequently placed on antibiotic administration with oral vancomycin 4 times daily. Since that time, she has had a significant improvement in both her clinical status as well as bowel habits, now having approximately 1 solid bowel movement every 1 to 2 days. She also endorses that her appetite has returned significantly to the point where she is not having any additional nausea, vomiting, or abdominal distention with food intake. Currently, she denies any nausea, vomiting, fevers, chills, abdominal pain, dysphagia, odynophagia, diarrhea, or constipation. REVIEW OF SYSTEMS: A 10-category review of systems was obtained with all responses negative except for the pertinent positives as listed in HPI. PAST MEDICAL HISTORY: As per HPI. PAST SURGICAL HISTORY: 1. . 2. Bilateral tubal ligation. 3. Left knee surgery. 4. Colonoscopy. FAMILY HISTORY: Denies any GI malignancies. SOCIAL HISTORY: Denies any tobacco, alcohol, or illicit drug use. OUTPATIENT MEDICATIONS: Reviewed. ALLERGIES: 1. SULFAS DRUGS. 2. TRAMADOL. 3. VICODIN. PHYSICAL EXAMINATION: VITAL SIGNS: Temperature 99, pulse 102, blood pressure 109/71, respiratory rate 16, saturating 97% on room air. GENERAL: The patient was lying in bed, in no acute distress. Alert and oriented x4. HEENT: Normocephalic, atraumatic. NECK: Supple. No JVD or scleral icterus noted. CARDIOVASCULAR: Regular rate and rhythm with no discernible murmurs, gallops, or rubs. RESPIRATORY: Clear to auscultation bilaterally with no discernible wheezes or rales. ABDOMEN: Normoactive bowel sounds. Soft, nontender, nondistended. EXTREMITIES: No cyanosis, clubbing, or edema. LABORATORY DATA: CBC with a white blood cell count obtained on October 16 with a white blood cell count of 5.1, hemoglobin 8.7, hematocrit 28.3, platelets 197. Chemistry also obtained on the showed a sodium of 137, potassium 3.3, chloride 103, CO2 of 24, BUN 9, creatinine 0.83, glucose 162. IMAGING DATA: No current GI imaging is available for review. ASSESSMENT AND PLAN: The patient is a 63-year-old female with past medical history of diabetes, community-acquired pneumonia, cytomegalovirus infection with viremia, influenza A infection, chronic herpes simplex virus infection, multiple myeloma and prior C. difficile infection, presenting with additional C. difficile infection. The patient was admitted to the hospital for acute altered mental status and noted to have respiratory studies positive for influenza A; however, during the course of the hospitalization, she did have some loose stools that were tested and were positive for Clostridium difficile. At this time given her multiple hospitalizations within the recent past and multiple antibiotic administration, the more likely reason for her C. diff infection would be again antibiotic administration. She was subsequently placed on oral vancomycin 125 mg 4 times daily and has responded well to this particular current regimen. Currently having approximately 1-2 solid bowel movements every 1 to 2 days with no difficulty with defecation. Given the solidification of her stool, she is likely not contagious and also shows response to treatment for this particular infection. At the current point in time, I would say that this infection has resolved and we will continue the oral vancomycin to its antibiotic completion with approximately 14 day total therapy. RECOMMENDATIONS: Continue oral vancomycin 125 mg 4 times daily for a total duration therapy of approximately 14 days. Continue to monitor clinically for signs of recurrent C. diff infection. We will sign off at this time given complete resolution of her C. diff infection. Please call with any additional questions. Job ID: [id number]
[2018-10-18] MEDS: Insulin Regular 300 UNITS/3 ML VIAL SC PRN ×3 (06:11→18:17)
[2018-10-18] MEDS: Mometasone/Formoterol 120 PUFF INHALER INH SCH ×2 (07:40→18:22)
[2018-10-18] MEDS: Enoxaparin Sodium 40 MG/0.4 ML SYRINGE SC SCH (08:36)
[2018-10-18] MEDS: Vancomycin HCl 25 MG/ML Oral PO SCH ×4 (08:36→20:36)
[2018-10-18] MEDS: Allopurinol 300 MG TAB PO SCH (08:37)
[2018-10-18] MEDS: Gabapentin 300 MG CAP PO SCH ×3 (08:37→20:37)
[2018-10-18] MEDS: Stress 600 With Zinc 1 TAB PO SCH (08:37)
[2018-10-18] MEDS: Carvedilol 25 MG TAB PO SCH ×2 (08:37→20:37)
[2018-10-18] MEDS: Magnesium Oxide 400 MG TAB PO SCH ×2 (08:37→20:38)
[2018-10-18] MEDS: Potassium Chloride 20 MEQ TAB PO SCH (08:37)
[2018-10-18] MEDS: Valsartan 80 MG TAB PO SCH (08:37)
[2018-10-18] MEDS: Rosuvastatin 20 MG TAB PO SCH (08:37)
[2018-10-18] MEDS: Fish Oil 1,000 MG CAP PO SCH (08:38)
[2018-10-18] MEDS: guaiFENesin ER 600 MG TAB PO SCH ×2 (08:38→20:37)
[2018-10-18] MEDS: Saccharomyces boulardii 250 MG CAP PO SCH (08:38)
[2018-10-18] MEDS: Furosemide 40 MG TAB PO SCH ×2 (08:56→14:06)
[2018-10-18] MEDS: Ondansetron ODT 4 MG TAB PO PRN (12:24)
--- NOTE | 2018-10-18 16:36 | PRG ---
DATE OF SERVICE: 10/18/2018 SUBJECTIVE: She feels quite good. She does not have much complaints to offer. She noticed her breathing has improved. She participates in physical therapy. OBJECTIVE: VITAL SIGNS: Blood pressure is 121/76, pulse is 111, respiratory rate is 18, O2 saturation is 97% on room air, temperature is 99.1, maximal temperature is 99.3. HEENT: Head is atraumatic and normocephalic. Eyes are PERRLA. Sclerae are nonicteric. Oral mucosa is moist. NECK: Supple. LUNGS: Presenting with bilateral rales, significantly improved. No wheezing. HEART: S1, S2. She is somewhat tachycardic. No S3. No S4. ABDOMEN: Obese, soft, and nontender. EXTREMITIES: No clubbing, cyanosis, or edema. NEUROLOGICAL EXAM: She follows my commands. She moves her all four extremities. There are no any focal deficits. LABORATORY DATA: Glycemia is ranging from 153 to 243. IMPRESSION: 1. Influenza A. 2. Clostridium difficile colitis. 3. Sepsis with acute organ dysfunction. 4. Hypokalemia. 5. Hypomagnesemia. 6. History of multiple myeloma. 7. Herpes simplex virus, chronic perineal skin ulcers. 8. Cytomegalovirus viremia associated with immunosuppression. The patient was seen by Dr. Pereira for ID consultation. He felt that the bacteremia was a contamination of the sample rather than true bacteremia. He recommended to continue quantification testing, DNA/PCR, hence followup a panel for viral pathogens was done and it came back negative. He did not recommend any prolonged treatment with a neuraminidase inhibitor. The patient was seen by Dr. Davis for GI evaluation and he recommended to continue vancomycin at 125 mg four times a day for total duration of approximately 14 days. Since the patient's approach very close time to the discharge, we contacted the patient's son and he basically refused to take her today. He said that he had been working with different case folder on some other issues to help him and he would like to wait until Friday when the case folder is back, and he can finalize the plan, so the patient is going to stay overnight. We will continue current regimen with PT and she should be able to go home tomorrow, if he has enough resources at home to take care of her. If not, she might have to go to the longterm facility. Job ID: [id number]
[2018-10-18] MEDS: diphenhydrAMINE 25 MG CAP PO SCH (20:37)
[2018-10-18] MEDS: Acetaminophen 500 MG TAB PO SCH (20:37)
[2018-10-18] MEDS ORDERED: Famotidine 20 MG TAB PO SCH (21:45)
[2018-10-19] MEDS: Insulin Regular 300 UNITS/3 ML VIAL SC PRN (05:01)
[2018-10-19] MEDS: Mometasone/Formoterol 120 PUFF INHALER INH SCH ×2 (06:36→18:33)
[2018-10-19] MEDS: Carvedilol 25 MG TAB PO SCH ×2 (09:26→21:04)
[2018-10-19] MEDS: Saccharomyces boulardii 250 MG CAP PO SCH (09:26)
[2018-10-19] MEDS: Famotidine 20 MG TAB PO SCH ×2 (09:26→21:05)
[2018-10-19] MEDS: guaiFENesin ER 600 MG TAB PO SCH ×2 (09:26→21:15)
[2018-10-19] MEDS: Potassium Chloride 20 MEQ TAB PO SCH (09:26)
[2018-10-19] MEDS: Furosemide 40 MG TAB PO SCH ×2 (09:26→13:20)
[2018-10-19] MEDS: Magnesium Oxide 400 MG TAB PO SCH ×2 (09:27→21:05)
[2018-10-19] MEDS: Gabapentin 300 MG CAP PO SCH ×3 (09:27→21:05)
[2018-10-19] MEDS: Fish Oil 1,000 MG CAP PO SCH (09:27)
[2018-10-19] MEDS: Valsartan 80 MG TAB PO SCH (09:27)
[2018-10-19] MEDS: Vancomycin HCl 25 MG/ML Oral PO SCH ×4 (09:27→21:06)
[2018-10-19] MEDS: Stress 600 With Zinc 1 TAB PO SCH (09:27)
[2018-10-19] MEDS: Rosuvastatin 20 MG TAB PO SCH (09:28)
[2018-10-19] MEDS: Allopurinol 300 MG TAB PO SCH (09:28)
[2018-10-19] MEDS: Enoxaparin Sodium 40 MG/0.4 ML SYRINGE SC SCH (09:28)
[2018-10-19] MEDS: Acetaminophen 325 MG TAB PO PRN (18:16)
[2018-10-19] MEDS: diphenhydrAMINE 25 MG CAP PO SCH (21:04)
[2018-10-19] MEDS: Acetaminophen 500 MG TAB PO SCH (21:05)
[2018-10-20] MEDS: Insulin Regular 300 UNITS/3 ML VIAL SC PRN ×3 (05:16→20:59)
[2018-10-20] MEDS: Mometasone/Formoterol 120 PUFF INHALER INH SCH ×2 (07:02→19:11)
[2018-10-20] MEDS: Enoxaparin Sodium 40 MG/0.4 ML SYRINGE SC SCH (08:11)
[2018-10-20] MEDS: Gabapentin 300 MG CAP PO SCH ×3 (08:12→20:55)
[2018-10-20] MEDS: Magnesium Oxide 400 MG TAB PO SCH ×2 (08:12→20:57)
[2018-10-20] MEDS: Famotidine 20 MG TAB PO SCH ×2 (08:12→20:55)
[2018-10-20] MEDS: Fish Oil 1,000 MG CAP PO SCH (08:12)
[2018-10-20] MEDS: Carvedilol 25 MG TAB PO SCH ×2 (08:12→20:55)
[2018-10-20] MEDS: Furosemide 40 MG TAB PO SCH ×2 (08:12→14:07)
[2018-10-20] MEDS: Allopurinol 300 MG TAB PO SCH (08:12)
[2018-10-20] MEDS: Saccharomyces boulardii 250 MG CAP PO SCH (08:12)
[2018-10-20] MEDS: Rosuvastatin 20 MG TAB PO SCH (08:12)
[2018-10-20] MEDS: Valsartan 80 MG TAB PO SCH (08:13)
[2018-10-20] MEDS: Potassium Chloride 20 MEQ TAB PO SCH (08:13)
[2018-10-20] MEDS: Stress 600 With Zinc 1 TAB PO SCH (08:13)
[2018-10-20] MEDS: guaiFENesin ER 600 MG TAB PO SCH ×2 (08:13→20:56)
[2018-10-20] MEDS: Vancomycin HCl 25 MG/ML Oral PO SCH ×4 (08:14→20:56)
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
--- NOTE | 2018-10-20 14:55 | PDOC.PN ---
- Subjective Encounter Start Date: 10/20/18 Encounter Start Time: 09:20 Pt seen for followup re: physical deconditioning. says she feels better. - Objective Resuscitation Status - Order Detail: 10/16/18 17:44 Resuscitation Status Routine Resuscitation Status: DNAR: NO Resuscitation Discussed with: Confirmed with patient - OOH - DNR in chart MAR Reviewed: Yes Vital Signs & Weight: Vital Signs (12 hours) Temp Pulse Resp BP Pulse Ox 10/20/18 13:02 100 16 95 10/20/18 08:16 98.7 F 100 18 105/61 92 L 10/20/18 08:00 92 L 10/20/18 07:01 109 H 16 94 L Weight Admit Weight 196 lb 6.4 oz Weight 196 lb 6.4 oz I&O: 10/19/18 10/20/18 10/21/18 06:59 06:59 06:59 Intake Total 1760 480 720 Balance 1760 480 720 Result Diagrams: 10/16/18 07:35 10/16/18 07:35 Additional Labs: Accuchecks 10/20/18 10/19/18 10/19/18 04:50 20:02 16:56 POC Glucose 290 H 182 H 189 H labs reviewed by me Phys Exam - Physical Examination Obese HEENT: moist MMs Neck: supple Respiratory: clear to auscultation bilateral Cardiovascular: RRR Gastrointestinal: soft Neurological: moves all 4 limbs Psychiatric: normal affect Dx/Plan (1) Physical deconditioning Code(s): R53.81 - OTHER MALAISE Status: Acute Comment: awaiting SNU (2) C. difficile colitis Status: Acute Comment: continue oral vancomycin (3) CMV (cytomegalovirus infection) Code(s): B25.9 - CYTOMEGALOVIRAL DISEASE, UNSPECIFIED Status: Acute Comment : continue valganciclovir (4) Dyslipidemia Code(s): E78.5 - HYPERLIPIDEMIA, UNSPECIFIED Status: Chronic Comment: continue statin (5) Hypertension Code(s): I10 - ESSENTIAL (PRIMARY) HYPERTENSION Status: Chronic Qualifiers: Comment: controlled - Plan * . Review of Systems - Review of Systems Constitutional: weakness Respiratory: negative: Cough, Dry, Shortness of Breath, Hemoptysis, SOB with Excertion, Pleuritic Pain, Sputum, Wheezing Cardiovascular: negative: chest pain, palpitations, orthopnea, paroxysmal nocturnal dyspnea, edema, light headedness - Medications/Allergies Allergies/Adverse Reactions: Allergies Allergy/AdvReac Type Severity Reaction Status Date / Time acetaminophen [From Vicodin] Allergy Verified 10/12/18 04:19 codeine Allergy Stomach Verified 10/12/18 04:18 Ache hydrocodone [From Vicodin] Allergy Verified 10/12/18 04:18 morphine Allergy Stomach Verified 10/12/18 04:18 Ache Sulfa (Sulfonamide Allergy Stomach Verified 10/12/18 04:18 Antibiotics) Ache tramadol Allergy Stomach Verified 10/12/18 04:18 Ache Medications: Current Medications Acetaminophen (Tylenol) 500 mg PO HS [facility] Last Admin: 10/19/18 21:05 Dose: 500 mg Acetaminophen (Tylenol) 650 mg PO Q6H PRN PRN Reason: Mild Pain (1-3) Last Admin: 10/19/18 18:16 Dose: 650 mg Albuterol Sulfate (Proventil Hfa) 2 puff INH Q6H PRN PRN Reason: SOB &/or Wheezing Albuterol/Ipratropium (Duoneb) 3 ml NEB QID PRN PRN Reason: SOB &/or Wheezing Albuterol/Ipratropium (Duoneb) 3 ml NEB [id number] [facility] Last Admin: 10/20/18 13:02 Dose: 3 ml Allopurinol (Zyloprim) 300 mg PO DAILY [facility] Last Admin: 10/20/18 08:12 Dose: 300 mg Benzonatate (Tessalon) 200 mg PO Q6H PRN PRN Reason: Cough Last Admin: 10/14/18 05:02 Dose: 200 mg Carvedilol (Coreg) 25 mg PO BID [facility] Last Admin: 10/20/18 08:12 Dose: 25 mg Dextrose/Water (Dextrose 50%) 25 gm SLOW IVP PRN PRN PRN Reason: Hypoglycemia Diphenhydramine HCl (Benadryl) 25 mg PO HS [facility] Last Admin: 10/19/18 21:04 Dose: 25 mg Enoxaparin Sodium (Lovenox) 40 mg SC 0900 [facility] Last Admin: 10/20/18 08:11 Dose: 40 mg Famotidine (Pepcid) 20 mg PO BID [facility] Last Admin: 10/20/18 08:12 Dose: 20 mg Fish Oil (Fish Oil) 1,000 mg PO DAILY [facility] Last Admin: 10/20/18 08:12 Dose: 1,000 mg Furosemide (Lasix) 40 mg PO 0900,1400 [facility] Last Admin: 10/20/18 14:07 Dose: 40 mg Gabapentin (Neurontin) 600 mg PO TID [facility] Last Admin: 10/20/18 14:07 Dose: 600 mg Glucagon (Glucagon) 1 mg IM PRN PRN PRN Reason: Hypoglycemia Guaifenesin (Mucinex) 1,200 mg PO Q12HR [facility] Last Admin: 10/20/18 08:13 Dose: 1,200 mg Dextrose/Water (D5w) 1,000 mls @ 0 mls/hr IV .Q0M PRN PRN Reason: Hypoglycemia Insulin Human Lispro (Humalog) 0 units SC ASDIR PRN PRN Reason: Hyperglycemia Insulin Human Regular (Humulin R) 0 units SC .MILD SLIDING SCALE PRN PRN Reason: Mild Correctional Scale Last Admin: 10/20/18 05:16 Dose: 4 unit Loratadine (Claritin) 10 mg PO DAILYPRN PRN PRN Reason: Allergies Last Admin: 10/13/18 13:57 Dose: 10 mg Magnesium Oxide (Magnesium Oxide) 400 mg PO 0900,2200 [facility] Last Admin: 10/20/18 08:12 Dose: 400 mg Mometasone Furoate/Formoterol Fumar (Dulera 200 Mcg/5 Mcg Inhaler) 2 puff INH BID-RT [facility] Last Admin: 10/20/18 07:02 Dose: 2 puff Multivitamins/Zinc (Stress 600 With Zinc) 1 tab PO DAILY [facility] Last Admin: 10/20/18 08:13 Dose: 1 tab Ondansetron HCl (Zofran) 4 mg IVP Q6H PRN PRN Reason: Nausea/Vomiting Ondansetron HCl (Zofran Odt) 4 mg PO Q4H PRN PRN Reason: Nausea/Vomiting Last Admin: 10/18/18 12:24 Dose: 4 mg Pantoprazole Sodium (Protonix) 40 mg PO DAILY [facility] Last Admin: 10/20/18 08:12 Dose: 40 mg Potassium Chloride (K-Dur) 40 meq PO DAILY [facility] Last Admin: 10/20/18 08:13 Dose: 40 meq Promethazine HCl (Phenergan) 25 mg PO Q4HR PRN PRN Reason: Nausea/Vomiting Rosuvastatin Calcium (Crestor) 20 mg PO DAILY [facility] Last Admin: 10/20/18 08:12 Dose: 20 mg Saccharomyces Boulardii (Florastor) 250 mg PO DAILY [facility] Last Admin: 10/20/18 08:12 Dose: 250 mg Sodium Chloride (Flush - Normal Saline) 10 ml IVF Q12HR [facility] Last Admin: 10/20/18 08:13 Dose: 10 ml Sodium Chloride (Flush - Normal Saline) 10 ml IVF PRN PRN PRN Reason: Saline Flush Last Admin: 10/16/18 14:42 Dose: 10 ml Valganciclovir (Valcyte) 900 mg PO DAILY [facility] Last Admin: 10/20/18 08:14 Dose: 900 mg Valsartan (Diovan) 160 mg PO DAILY [facility] Last Admin: 10/20/18 08:13 Dose: 160 mg Vancomycin HCl (First Vancomycin) 125 mg PO QID [facility] Stop: 10/23/18 13:01 Last Admin: 10/20/18 12:52 Dose: 125 mg Zolpidem Tartrate (Ambien) 5 mg PO HSPRN PRN PRN Reason: Insomnia Zolpidem Tartrate (Ambien) 5 mg PO HS PRN PRN Reason: Insomnia
[2018-10-20] MEDS: Acetaminophen 500 MG TAB PO SCH (20:54)
[2018-10-20] MEDS: diphenhydrAMINE 25 MG CAP PO SCH (20:55)
[2018-10-21] MEDS: Mometasone/Formoterol 120 PUFF INHALER INH SCH (06:41)
[2018-10-21 07:33] VITALS: BP 114/72; TEMP 99.1
[2018-10-21] MEDS: Vancomycin HCl 25 MG/ML Oral PO SCH ×2 (08:25→12:38)
[2018-10-21] MEDS: Valsartan 80 MG TAB PO SCH (08:25)
[2018-10-21] MEDS: Enoxaparin Sodium 40 MG/0.4 ML SYRINGE SC SCH (08:25)
[2018-10-21] MEDS: Carvedilol 25 MG TAB PO SCH (08:26)
[2018-10-21] MEDS: Allopurinol 300 MG TAB PO SCH (08:26)
[2018-10-21] MEDS: Fish Oil 1,000 MG CAP PO SCH (08:26)
[2018-10-21] MEDS: Rosuvastatin 20 MG TAB PO SCH (08:26)
[2018-10-21] MEDS: Furosemide 40 MG TAB PO SCH ×2 (08:26→14:11)
[2018-10-21] MEDS: Gabapentin 300 MG CAP PO SCH ×2 (08:27→14:11)
[2018-10-21] MEDS: Saccharomyces boulardii 250 MG CAP PO SCH (08:27)
[2018-10-21] MEDS: guaiFENesin ER 600 MG TAB PO SCH (08:27)
[2018-10-21] MEDS: Famotidine 20 MG TAB PO SCH (08:27)
[2018-10-21] MEDS: Potassium Chloride 20 MEQ TAB PO SCH (08:27)
[2018-10-21] MEDS: Magnesium Oxide 400 MG TAB PO SCH (08:27)
[2018-10-21] MEDS: Stress 600 With Zinc 1 TAB PO SCH (08:28)
--- NOTE | 2018-10-22 09:35 | DIS ---
DATE OF ADMISSION: 10/11/2018 DATE OF DISCHARGE: 10/21/2018 ADDENDUM: Please note that this discharge summary is being dictated as an addendum to discharge summary dictated by Dr. Gilliam on October 19, 2018. PRIMARY CARE PROVIDER: Brian Craig MD DISCHARGE DIAGNOSES: 1. Influenza A. 2. Clostridium difficile colitis. 3. Sepsis with acute organ dysfunction, resolved. 4. Hypokalemia. 5. Hypomagnesemia. 6. Herpes simplex virus, chronic skin ulcers. 7. Cytomegalovirus viremia associated with immunosuppression. 8. History of multiple myeloma. HOSPITAL COURSE: As described by Dr. Gilliam on the discharge summary dated October 19, 2018. The patient was not discharged home that day, because of concern about going home. She was evaluated by Hospice Service. She has been accepted for hospice care at [facility] and is being discharged there. CONDITION OF PATIENT ON THE DAY OF DISCHARGE: Stable. I assessed Ms. Huggins on the day of discharge. She denies any chest pain or shortness of breath. Vital signs are stable. S1 and S2 are heard, regular. Lungs are clear to auscultation bilaterally. DISCHARGE MEDICATIONS: No change was made to her medications as dictated on discharge summary by Dr. Gilliam dated October 19, 2018. Many thanks for allowing me to participate in your patient's care. Please feel free to contact me with any questions or concerns. DISCHARGE DESTINATION: [facility]. TIME SPENT: Total amount of time spent coordinating this discharge: 18 minutes. Job ID: [id number] MTDD
== END 2018-10-21 16:39 | DRG 698 ==
LOC: ERS 18:56 → ERHOLD 22:54 → T4-B 10-12 03:26
PROVIDERS: ADMIT Internal Medicine; ATTEND Internal Medicine
DX: T83.511A Infection and inflammatory reaction due to indwelling urethral catheter, initial encounter (principal); A41.9 Sepsis, unspecified organism; L89.153 Pressure ulcer of sacral region, stage 3; R65.20 Severe sepsis without septic shock; A04.72 Enterocolitis due to Clostridium difficile, not specified as recurrent; C90.01 Multiple myeloma in remission; B25.9 Cytomegaloviral disease, unspecified; B96.20 Unspecified Escherichia coli [E. coli] as the cause of diseases classified elsewhere; B96.1 Klebsiella pneumoniae [K. pneumoniae] as the cause of diseases classified elsewhere; E83.42 Hypomagnesemia; A60.1 Herpesviral infection of perianal skin and rectum; J10.1 Influenza due to other identified influenza virus with other respiratory manifestations; E11.9 Type 2 diabetes mellitus without complications; E87.8 Other disorders of electrolyte and fluid balance, not elsewhere classified; Z66 Do not resuscitate; E87.6 Hypokalemia; E66.9 Obesity, unspecified; Z79.2 Long term (current) use of antibiotics; Z88.5 Allergy status to narcotic agent; Z88.2 Allergy status to sulfonamides; Z68.31 Body mass index [BMI] 31.0-31.9, adult
CPT/HCPCS: 36415; 36416; 71045; 80048; 80053; 81001; 81003; 81015; 82550; 83735; 84145; 84484; 85025; 87040; 87077; 87086; 87149; 87186; 87633; 93005; 94640; 96361; 96365; J0696; J1650; J1815; J2543; J7050; J7620; J8499; Q0162

== ENCOUNTER 2018-11-22 20:59 | Emergency (ER) | payer MEDICARE, MEDICAID ==
[2018-11-22] MEDS ORDERED: Bacitracin Zinc 1 Packet ONE (21:30)
[2018-11-22] MEDS ORDERED: Acetaminophen 500 MG TAB ONE (21:48)
== END 2018-11-22 22:02 | disposition home or self-care (01) ==
LOC: ERS 20:59
DX: T25.211A Burn of second degree of right ankle, initial encounter (principal); T24.231A Burn of second degree of right lower leg, initial encounter; E11.9 Type 2 diabetes mellitus without complications; I10 Essential (primary) hypertension; E66.9 Obesity, unspecified; Z79.899 Other long term (current) drug therapy; K21.9 Gastro-esophageal reflux disease without esophagitis; Z79.4 Long term (current) use of insulin; X11.8XXA Contact with other hot tap-water, initial encounter
CPT/HCPCS: 99283

== ENCOUNTER 2018-11-25 10:48 | Inpatient (IN) | payer MEDICARE, MEDICAID ==
[2018-11-25] MEDS ORDERED: Heparin 1,000 UNITS/ML VIAL ONE (11:11)
[2018-11-25 11:47] LABS: Hemoglobin 8.1 g/dL (12.0-16.0); Mean Corpuscular HGB CONC 30.7 g/dL (32.0-36.0); Mean Corpuscular Hemoglobin 28.6 pg (27.0-31.0); Mean Corpuscular Volume 93.2 fL (78.0-98.0); Mean Platelet Volume 11.1 fL (7.4-10.4); Platelet Count 177 thou/uL (130-400); RBC Distribution Width 17.3 % (11.5-14.5); Red Blood Cell (RBC) Count 2.84 mill/uL (4.20-5.40); White Blood Cell (WBC) Count 29.3 thou/uL (4.8-10.8)
[2018-11-25 12:05] LABS: ALT (SGPT) 34 U/L (8-55); AST (SGOT) 55 U/L (5-34); Albumin 2.7 g/dL (3.4-4.8); Alkaline Phosphatase 110 U/L (40-150); Anion Gap 9 mmol/L (10-20); Anisocytosis SLIGHT = 6-15 cells (100X) (0-5/hpf); BUN (Urea Nitrogen) 8 mg/dL (9.8-20.1); Band 10 % (5-11); Bilirubin, Total 0.5 mg/dL (0.2-1.2); Calc. Creatinine Clearance 0 mL/min (70-130); Calcium 8.4 mg/dL (7.8-10.44); Carbon Dioxide 23 mmol/L (23-31); Chloride 113 mmol/L (98-107); Estimated GFR-MDRD Greater than 90; Globulin 6.7 g/dL (2.4-3.5); Glucose 87 mg/dL (80-115); Hypochromia SLIGHT = 6-15 cells (100X) (0-5/hpf); Lymphocytes 3 % (21-51); MDiff Complete? YES; Monocytes 4 % (0-10); Neutrophil 83 % (42-75); Platelet Morphology Comment Appears Adequate; Potassium 3.7 mmol/L (3.5-5.1); Protein, Total 9.4 g/dL (6.0-8.3); Sodium 141 mmol/L (136-145)
--- NOTE | 2018-11-25 12:17 | RAD ---
PORTABLE CHEST: HISTORY: Nausea and vomiting. Fever and cough. COMPARISON: 10/11/2018 FINDINGS: Heart size is enlarged. No signs of any focal infiltrative process or overt failure. IMPRESSION: Cardiomegaly. POS: [facility]
[2018-11-25] MEDS ORDERED: Piperacillin/Tazobactam 4.5 GM VIAL ONE (12:38)
[2018-11-25] MEDS ORDERED: Sodium Chloride 0.9% 100 ML ONE (12:38)
[2018-11-25 13:00] LABS: Bilirubin Negative (Negative); Blood, Urine Trace (Negative); Clarity CLOUDY (Clear); Glucose, Urine (Dipstick) Negative (Negative); Leukocyte Small (Negative); Nitrite Positive (Negative); Protein, Urine (Dipstick) 30 mg/dL (Neg-Trace); Specific Gravity, Urine 1.012 (1.002-1.036); Urobilinogen 0.2 mg/dL (0.2-1.0); pH, Urine 7.5 (5.0-9.0)
[2018-11-25 13:05] LABS: Bacteria/HPF 4+ HPF (None Seen); Hyaline Casts/LPF 0-3 HYALINE CAST LPF (0-3 Hyaline); Pathc Cast-AUWi Flag 0.29 (0-2.49); Squamous Epithelial 0-3 HPF (0-3)
[2018-11-25] MEDS ORDERED: Acetaminophen 500 MG TAB ONE (14:51)
[2018-11-25] MEDS ORDERED: Bisacodyl 5 MG TAB PO PRN (15:33)
[2018-11-25] MEDS ORDERED: Senokot S 8.6-50 MG TAB PO PRN ×2 (15:33→15:34)
[2018-11-25] MEDS ORDERED: cloNIDine 0.1 MG TAB PO PRN (15:34)
[2018-11-25] MEDS ORDERED: Benzonatate 100 MG CAP PO PRN (15:34)
[2018-11-25] MEDS ORDERED: Nitroglycerin 0.4 MG TAB (25 Tab Bottle) SL PRN (15:34)
[2018-11-25] MEDS ORDERED: hydrALAZINE 20 MG/ML VIAL SLOW IVP PRN (15:34)
[2018-11-25] MEDS ORDERED: Dextrose 5% in Water 1,000 ML IV PRN (16:16)
[2018-11-25] MEDS ORDERED: HumaLOG 300 UNITS/3 ML VIAL SC PRN ×2 (16:16)
[2018-11-25] MEDS: Sodium Chloride 0.9% 1,000 ML IV SCH (17:16)
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
[2018-11-25] MEDS: Piperacillin/Tazobactam 3.375 GM in Sodium Chloride 0.9% 100 ML IVPB SCH (18:10)
[2018-11-25] MEDS ORDERED: Vancomycin HCl 1 GM in Premix Bag 1 BAG IVPB SCH (21:00)
[2018-11-25] MEDS: Ibuprofen 200 MG TAB PO PRN (21:30)
[2018-11-25] MEDS: Famotidine 20 MG TAB PO SCH (21:31)
[2018-11-25] MEDS: Heparin 5,000 UNITS/ML VIAL SC SCH (21:32)
[2018-11-26] MEDS: Piperacillin/Tazobactam 3.375 GM in Sodium Chloride 0.9% 100 ML IVPB SCH ×4 (00:16→23:14)
[2018-11-26] MEDS: Vancomycin HCl 1.75 GM in Sodium Chloride 0.9% 500 ML IVPB SCH ×2 (01:28→12:33)
[2018-11-26] MEDS: Ibuprofen 200 MG TAB PO PRN ×3 (03:00→21:29)
[2018-11-26] MEDS: Sodium Chloride 0.9% 1,000 ML IV SCH ×2 (05:28→09:52)
[2018-11-26 05:43] LABS: #Eosinphils 0.1 thou/uL (0.0-0.7); #Lymphocytes 1.8 thou/uL (1.20-3.40); #Monocytes 1.4 thou/uL (0.11-0.59); #Neutrophils 13.2 thou/uL (1.40-6.50); %Basophils 0.2 % (0.0-1.0); %Eosinophils 0.4 % (0.0-10.0); %Lymphocytes 10.9 % (21.0-51.0); %Monocytes 8.7 % (0.0-10.0); %Neutrophils 79.9 % (42.0-75.0); Hemoglobin 7.2 g/dL (12.0-16.0); Mean Corpuscular HGB CONC 31.2 g/dL (32.0-36.0); Mean Corpuscular Hemoglobin 30.1 pg (27.0-31.0); Mean Corpuscular Volume 96.6 fL (78.0-98.0); Mean Platelet Volume 10.5 fL (7.4-10.4); Platelet Count 126 thou/uL (130-400); Red Blood Cell (RBC) Count 2.39 mill/uL (4.20-5.40); White Blood Cell (WBC) Count 16.5 thou/uL (4.8-10.8)
[2018-11-26 06:12] LABS: Anion Gap 8 mmol/L (10-20); BUN (Urea Nitrogen) 7 mg/dL (9.8-20.1); Calc. Creatinine Clearance 143 mL/min (70-130); Calcium 7.6 mg/dL (7.8-10.44); Carbon Dioxide 21 mmol/L (23-31); Chloride 117 mmol/L (98-107); Estimated GFR-MDRD Greater than 90; Sodium 143 mmol/L (136-145)
[2018-11-26 06:14] LABS: Glucose 59 mg/dL (80-115); Potassium 2.9 mmol/L (3.5-5.1)
[2018-11-26] MEDS: Ondansetron PF 4 MG/2 ML Vial IVP PRN (06:38)
[2018-11-26] MEDS ORDERED: Potassium Chloride 20 MEQ TAB PO SCH (07:30)
[2018-11-26] MEDS ORDERED: Non-Formulary Item 1 EACH (Valsartan [Valsartan] 160 MG) PO SCH (09:09)
[2018-11-26] MEDS: Heparin 5,000 UNITS/ML VIAL SC SCH ×2 (09:37→23:14)
[2018-11-26] MEDS: Potassium Chloride 20 MEQ TAB PO SCH ×2 (09:37→11:59)
[2018-11-26] MEDS: Famotidine 20 MG TAB PO SCH ×2 (09:37→21:30)
[2018-11-26] MEDS: Valsartan 80 MG TAB PO SCH (09:51)
[2018-11-26] MEDS: PROVENTIL INHALER 6.7 G (200 INHALATIONS) INH PRN (10:37)
--- NOTE | 2018-11-26 14:04 | PDOC.PN ---
- Subjective Encounter Start Date: 11/26/18 Encounter Start Time: 14:01 Subjective: feels nauseated O/W no new complaints -: no diarrhea/abd pain - Objective MAR Reviewed: Yes Vital Signs & Weight: Vital Signs (12 hours) Temp Pulse Pulse Resp BP BP Pulse Ox 11/26/18 12:00 97.1 F L 99 18 133/84 11/26/18 10:37 70 16 96 11/26/18 09:00 91 133/67 11/26/18 08:00 97.7 F 89 20 133/67 97 11/26/18 04:00 98.4 F 90 16 141/65 H 92 L Pulse Ox 11/26/18 12:00 11/26/18 10:37 11/26/18 09:00 94 L 11/26/18 08:00 11/26/18 04:00 Weight Admit Weight 204 lb 9.6 oz Weight 205 lb 9.6 oz I&O: 11/25/18 11/26/18 11/27/18 06:59 06:59 06:59 Intake Total 1791 Output Total 300 Balance 1491 Result Diagrams: 11/26/18 04:49 11/26/18 04:49 Additional Labs: Accuchecks 11/26/18 11/26/18 11/26/18 10:43 07:39 05:44 POC Glucose 83 90 69 L 11/25/18 11/25/18 20:48 17:41 POC Glucose 83 78 Microbiology 11/25/18 12:21 Nasopharyngeal swab Influenza Types A,B Direct EIA - Final 11/25/18 12:13 Urine Straight Catheter Urine Culture - Preliminary Presumptive Escherichia coli 11/25/18 11:30 Venous blood - Left Arm Blood Culture - Preliminary Specimen has been received and culture in progress. No Growth to date. 11/25/18 11:26 Venous blood - Right Hand Blood Culture - Preliminary Escherichia coli Laboratory Tests 11/26/18 04:49 Magnesium 1.3 L Phys Exam - Physical Examination Constitutional: NAD HEENT: PERRLA, moist MMs, sclera anicteric, oral pharynx no lesions Neck: no nodes, no JVD, supple, full ROM Respiratory: no wheezing, no rales, no rhonchi, clear to auscultation bilateral Cardiovascular: RRR, no significant murmur Gastrointestinal: soft, non-tender, no distention, positive bowel sounds Musculoskeletal: no edema, pulses present Neurological: non-focal, normal sensation, moves all 4 limbs Psychiatric: normal affect, A&O x 3 Skin: no rash Dx/Plan (1) Sepsis Code(s): A41.9 - SEPSIS, UNSPECIFIED ORGANISM Status: Acute (2) E coli bacteremia Code(s): R78.81 - BACTEREMIA Status: Acute (3) E-coli UTI Code(s): N39.0 - URINARY TRACT INFECTION, SITE NOT SPECIFIED; B96.20 - UNSP ESCHERICHIA COLI THE CAUSE OF DISEASES CLASSD ELSWHR Status: Acute (4) Hypokalemia Code(s): E87.6 - HYPOKALEMIA Status: Acute Comment: (5) Hypomagnesemia Code(s): E83.42 - HYPOMAGNESEMIA Status: Acute (6) Thrombocytopenia Code(s): D69.6 - THROMBOCYTOPENIA, UNSPECIFIED Status: Acute Comment: monitor. on Heparin BID for DVT prophylaxis. High risk of DVT (7) H/O Clostridium difficile infection Code(s): Z86.19 - PERSONAL HISTORY OF OTHER INFECTIOUS AND PARASITIC DISEASES Status: Chronic (8) Other issues per previous notes Status: Chronic (9) Diabetes type 2, controlled Code(s): E11.9 - TYPE 2 DIABETES MELLITUS WITHOUT COMPLICATIONS Status: Chronic Comment: (10) Dyslipidemia Code(s): E78.5 - HYPERLIPIDEMIA, UNSPECIFIED Status: Chronic Comment: continue statin (11) Hypertension Code(s): I10 - ESSENTIAL (PRIMARY) HYPERTENSION Status: Chronic Qualifiers: Comment: controlled (12) Multiple myeloma Code(s): C90.00 - MULTIPLE MYELOMA NOT HAVING ACHIEVED REMISSION Status: Chronic Comment: - Plan continue antibiotics, PT/OT, out of bed/ambulate, DVT proph w/heparin, DVT proph w/SCDs cont empiric ABx. h/o MDR E.coli in past. ID resc rquested.clinically david -: restart select home meds as below -: replace and recheck lytes -: am labs. * . Review of Systems - Review of Systems Constitutional: weakness, malaise. negative: fever, chills, sweats, other ENT: negative: Ear Pain, Ear Discharge, Nose Pain, Nose Discharge, Nose Congestion, Mouth Pain, Mouth Swelling, Throat Pain, Throat Swelling, Other Cardiovascular: negative: chest pain, palpitations, orthopnea, paroxysmal nocturnal dyspnea, edema, light headedness, other Gastrointestinal: Nausea. negative: Vomiting, Abdominal Pain, Diarrhea, Constipation, Melena, Hematochezia, Other Genitourinary: Frequency Musculoskeletal: negative: Neck Pain, Shoulder Pain, Arm Pain, Back Pain, Hand Pain, Leg Pain, Foot Pain, Other Skin: negative: Rash, Lesions, Toi, Bruising, Other Neurological: negative: Weakness, Numbness, Incoordination, Change in Speech, Confusion, Seizures, Other - Medications/Allergies Allergies/Adverse Reactions: Allergies Allergy/AdvReac Type Severity Reaction Status Date / Time acetaminophen [From Vicodin] Allergy Verified 10/12/18 04:19 codeine Allergy Stomach Verified 10/12/18 04:18 Ache hydrocodone [From Vicodin] Allergy Verified 10/12/18 04:18 morphine Allergy Stomach Verified 10/12/18 04:18 Ache Sulfa (Sulfonamide Allergy Stomach Verified 10/12/18 04:18 Antibiotics) Ache tramadol Allergy Stomach Verified 10/12/18 04:18 Ache Medications: Current Medications Albuterol Sulfate (Proventil Hfa) 2 puff INH Q6H PRN PRN Reason: SOB &/or Wheezing Last Admin: 11/26/18 10:37 Dose: 2 puff Allopurinol (Zyloprim) 300 mg PO DAILY [facility] Benzonatate (Tessalon) 100 mg PO Q6H PRN PRN Reason: Cough Bisacodyl (Dulcolax) 10 mg PO DAILYPRN PRN PRN Reason: Constipation Carvedilol (Coreg) 25 mg PO BID [facility] Clonidine (Catapres) 0.1 mg PO Q4H PRN PRN Reason: SBP > 160____ Dextrose/Water (Dextrose 50%) 25 gm SLOW IVP PRN PRN PRN Reason: Hypoglycemia Famotidine (Pepcid) 20 mg PO BID [facility] Last Admin: 11/26/18 09:37 Dose: 20 mg Fish Oil (Fish Oil) 1,000 mg PO DAILY [facility] Furosemide (Lasix) 40 mg PO DAILY [facility] Gabapentin (Neurontin) 600 mg PO TID [facility] Glucagon (Glucagon) 1 mg IM PRN PRN PRN Reason: Hypoglycemia Heparin Sodium (Porcine) (Heparin) 5,000 units SC BID [facility] Last Admin: 11/26/18 09:37 Dose: 5,000 units Hydralazine HCl (Apresoline) 10 mg SLOW IVP Q4H PRN PRN Reason: SBP > 180 and HR < 70 Sodium Chloride (Normal Saline 0.9%) 1,000 mls @ 75 mls/hr IV .[id number] [facility] Last Admin: 11/26/18 09:52 Dose: 1,000 mls Piperacillin Sod/Tazobactam (Sod 3.375 gm/ Sodium Chloride) 100 mls @ 200 mls/ hr IVPB Q6HR [facility] Last Admin: 11/26/18 11:54 Dose: 100 mls Dextrose/Water (D5w) 1,000 mls @ 0 mls/hr IV .Q0M PRN PRN Reason: Hypoglycemia Vancomycin HCl 1.75 gm/ Sodium (Chloride) 500 mls @ 250 mls/hr IVPB 0100,1300 [facility] Last Admin: 11/26/18 12:33 Dose: 500 mls Magnesium Sulfate 2 gm/ Sodium (Chloride) 104 mls @ 100 mls/hr IVPB ONE [facility] Ibuprofen (Motrin) 400 mg PO Q6H PRN PRN Reason: Fever/Mild Pain Last Admin: 11/26/18 11:58 Dose: 400 mg Insulin Human Lispro (Humalog) 0 units SC .MODERATE SLIDING SC PRN PRN Reason: Moderate Correctional Scale Insulin Human Lispro (Humalog) 0 units SC .BEDTIME SLIDING SC PRN PRN Reason: Bedtime Correctional Scale Miscellaneous Medication (Pharmacy To Dose) 1 each IVPB PRN PRN PRN Reason: Pharmacy to dose Mometasone Furoate/Formoterol Fumar (Dulera 200 Mcg/5 Mcg Inhaler) 2 puff INH BID-RT [facility] Nitroglycerin (Nitrostat) 0.4 mg SL Q5MIN PRN PRN Reason: Chest Pain Ondansetron HCl (Zofran) 4 mg IVP Q6H PRN PRN Reason: Nausea/Vomiting Last Admin: 11/26/18 06:38 Dose: 4 mg Pantoprazole Sodium (Protonix) 40 mg PO DAILY [facility] Last Admin: 11/26/18 09:51 Dose: 40 mg [Integra Plus] 1 Cap 0 each PO DAILY [facility] Rosuvastatin Calcium (Crestor) 20 mg PO DAILY [facility] Senna/Docusate Sodium (Senokot S) 2 tab PO BID PRN PRN Reason: Constipation Sodium Chloride (Flush - Normal Saline) 10 ml IVF Q12HR [facility] Last Admin: 11/26/18 09:54 Dose: Not Given Sodium Chloride (Flush - Normal Saline) 10 ml IVF PRN PRN PRN Reason: Saline Flush Valsartan (Diovan) 160 mg PO DAILY [facility] Last Admin: 11/26/18 09:51 Dose: 160 mg
[2018-11-26] MEDS ORDERED: Magnesium 2 GM/50 ML 2 GM in Premix Bag 1 BAG IVPB SCH (14:30)
[2018-11-26] MEDS ORDERED: Non-Formulary Item 1 EACH (Gabapentin [Gabapentin] 600 MG) PO SCH (15:00)
[2018-11-26] MEDS: Gabapentin 300 MG CAP PO SCH ×2 (18:42→21:28)
[2018-11-26] MEDS: Mometasone/Formoterol 120 PUFF INHALER INH SCH (19:25)
[2018-11-26] MEDS ORDERED: Carvedilol 25 MG TAB PO SCH (21:00)
[2018-11-26] MEDS: Saccharomyces boulardii 250 MG CAP PO SCH (21:29)
[2018-11-26] MEDS: Carvedilol 25 MG TAB PO SCH (21:30)
--- NOTE | 2018-11-26 23:05 | RAD ---
PORTABLE CHEST: 11/26/18 INDICATIONS: Central line placement. COMPARISON: 11/25/18. FINDINGS/IMPRESSION: Central line via the right jugular has been placed. Tip overlies the SVC. Cardiomegaly. Mild vascular congestion similar to the 11/25/18 exam. POS: [facility]
[2018-11-27] MEDS: Vancomycin HCl 1.75 GM in Sodium Chloride 0.9% 500 ML IVPB SCH (01:07)
[2018-11-27] MEDS: Piperacillin/Tazobactam 3.375 GM in Sodium Chloride 0.9% 100 ML IVPB SCH ×2 (04:17→11:16)
--- NOTE | 2018-11-27 04:45 | PDOC.EVN ---
Event Note - Event Note Event Note: Central Line 11/26/18 INDICATION: access PROCEDURE GOLDBEATER: Magdalene Sepulveda MD, assisted by Elida Pak MD ATTENDING PHYSICIAN: Dr. Regalado, In Attendance CONSENT: Consent was obtained from patient prior to the procedure. Indications, risks, and benefits were explained at length. PROCEDURE SUMMARY: A time out was performed. My hands were washed immediately prior to the procedure. I wore a surgical cap, mask with protective eyewear, full gown and sterile gloves throughout the procedure. The patient was placed in Trendelenburg position. RIGHT neck/chest region was prepped using chlorhexidine scrub and draped in sterile fashion using a full drape and sterile probe cover employed. The medial and lateral heads of the sternocleidomastoid muscle were identified as was the carotid pulse. The Internal Jugular vein was identified using the ultrasound. Anesthesia was achieved over the vein using 1% lidocaine. Using real-time out of plane guidance, the introducer needle was inserted into the Internal Jugular vein under direct ultrasound visualization. Venous blood was withdrawn. The syringe was removed and a guidewire was advanced into the introducer needle. The guidewire was visualized in the Internal Jugular Vein by ultrasound. A small incision was made at the skin surface with a scalpel and the introducer needle was exchanged for a dilator over the guidewire. After appropriate dilation was obtained, the dilator was exchanged over the wire for a central venous catheter. The wire was removed and the catheter was sutured in place at 15 cm. A sterile sorbaview shield was placed over the catheter at the insertion site. The patient tolerated the procedure without any hemodynamic compromise. At time of procedure completion, all ports aspirated and flushed properly. Post-procedure chest x-ray showed good positioning. Estimated blood loss is 3 ml. Addendum - Attending - Attending Attestation Date/Time: 12/15/18 3032 I, Guerrero Regalado MD, personally evaluated the patient and discussed indications for the procedure described by Dr. Sepulveda. I directly supervised and participated in the Internal jugular central venous catheter placement and I agree with the description of procedure as documented above with any addition or exceptions noted below:
[2018-11-27 05:39] LABS: #Eosinphils 0.1 thou/uL (0.0-0.7); #Lymphocytes 1.5 thou/uL (1.20-3.40); #Neutrophils 7.9 thou/uL (1.40-6.50); %Basophils 0.1 % (0.0-1.0); %Eosinophils 0.5 % (0.0-10.0); %Lymphocytes 14.1 % (21.0-51.0); %Monocytes 9.5 % (0.0-10.0); %Neutrophils 75.7 % (42.0-75.0); Hemoglobin 6.7 g/dL (12.0-16.0); Mean Corpuscular HGB CONC 30.9 g/dL (32.0-36.0); Mean Corpuscular Hemoglobin 29.2 pg (27.0-31.0); Mean Corpuscular Volume 94.3 fL (78.0-98.0); Mean Platelet Volume 9.9 fL (7.4-10.4); Platelet Count 146 thou/uL (130-400); RBC Distribution Width 17.2 % (11.5-14.5); White Blood Cell (WBC) Count 10.4 thou/uL (4.8-10.8)
[2018-11-27 05:58] LABS: Anion Gap 8 mmol/L (10-20); BUN (Urea Nitrogen) 5 mg/dL (9.8-20.1); Calc. Creatinine Clearance 123 mL/min (70-130); Calcium 7.7 mg/dL (7.8-10.44); Carbon Dioxide 19 mmol/L (23-31); Chloride 118 mmol/L (98-107); Estimated GFR-MDRD Greater than 90; Glucose 76 mg/dL (80-115); Potassium 3.3 mmol/L (3.5-5.1); Sodium 142 mmol/L (136-145)
[2018-11-27] MEDS: Mometasone/Formoterol 120 PUFF INHALER INH SCH ×2 (07:21→19:06)
[2018-11-27] MEDS ORDERED: [UNRECOGNIZED DRUG - OTHER] PO SCH (09:00)
[2018-11-27] MEDS ORDERED: Vancomycin HCl 25 MG/ML Oral PO SCH (09:00)
[2018-11-27] MEDS ORDERED: INTEGRA PLUS PO SCH (09:00)
[2018-11-27] MEDS ORDERED: IRON FUM PS PO SCH (09:00)
[2018-11-27] MEDS ORDERED: FOLIC PO SCH (09:00)
[2018-11-27] MEDS: Rosuvastatin 20 MG TAB PO SCH (11:04)
[2018-11-27] MEDS: Valsartan 80 MG TAB PO SCH (11:04)
[2018-11-27] MEDS: Saccharomyces boulardii 250 MG CAP PO SCH ×2 (11:05→20:11)
[2018-11-27] MEDS: Fish Oil 1,000 MG CAP PO SCH (11:05)
[2018-11-27] MEDS: Famotidine 20 MG TAB PO SCH ×2 (11:05→20:12)
[2018-11-27] MEDS: Ibuprofen 200 MG TAB PO PRN ×2 (11:05→16:12)
[2018-11-27] MEDS: Furosemide 40 MG TAB PO SCH (11:05)
[2018-11-27] MEDS: Carvedilol 25 MG TAB PO SCH ×2 (11:06→20:14)
[2018-11-27] MEDS: Allopurinol 300 MG TAB PO SCH (11:06)
[2018-11-27] MEDS: Prenatal Vitamin 1 TAB PO SCH (11:06)
[2018-11-27] MEDS: Heparin 5,000 UNITS/ML VIAL SC SCH ×2 (11:08→20:13)
[2018-11-27] MEDS: Gabapentin 300 MG CAP PO SCH ×3 (11:25→20:12)
[2018-11-27] MEDS: metroNIDAZOLE 500 MG in Premix Bag 1 BAG IVPB SCH ×3 (12:15→23:56)
[2018-11-27] MEDS: Vancomycin HCl 25 MG/ML Oral PO SCH ×3 (12:18→20:24)
[2018-11-27 12:45] LABS: Vancomycin, Trough 49.6 ug/mL
--- NOTE | 2018-11-27 14:54 | PDOC.PN ---
- Subjective Encounter Start Date: 11/27/18 Encounter Start Time: 14:52 Subjective: feels better.no new complaints - Objective MAR Reviewed: Yes Vital Signs & Weight: Vital Signs (12 hours) Temp Pulse Resp BP Pulse Ox 11/27/18 12:00 97.6 F 90 18 129/95 H 97 11/27/18 08:00 98 F 84 16 124/60 98 11/27/18 07:21 102 H 14 96 11/27/18 04:15 98 F 99 16 135/77 94 L Weight Admit Weight 204 lb 9.6 oz Weight 206 lb I&O: 11/26/18 11/27/18 11/28/18 06:59 06:59 06:59 Intake Total 1791 2933 Output Total 300 700 Balance 1491 2233 Result Diagrams: 11/27/18 05:25 11/27/18 05:25 Additional Labs: Accuchecks 11/27/18 11/27/18 11/26/18 11:00 05:21 20:13 POC Glucose 85 98 81 11/26/18 11/26/18 18:49 17:21 POC Glucose 80 62 L Microbiology 11/26/18 19:00 Stool C. difficile GDH Antigen & Toxins - Final 11/25/18 12:21 Nasopharyngeal swab Influenza Types A,B Direct EIA - Final 11/25/18 12:13 Urine Straight Catheter Urine Culture - Preliminary Presumptive Escherichia coli 11/25/18 11:30 Venous blood - Left Arm Blood Culture - Preliminary Specimen has been received and culture in progress. No Growth to date. 11/25/18 11:26 Venous blood - Right Hand Blood Culture - Preliminary Escherichia coli Phys Exam - Physical Examination Constitutional: NAD HEENT: PERRLA, moist MMs, sclera anicteric, TM's clear, oral pharynx no lesions , 2+ tonsils Neck: no nodes, no JVD, supple, full ROM Respiratory: no wheezing, no rales, no rhonchi, clear to auscultation bilateral Cardiovascular: RRR, no significant murmur, no rub Gastrointestinal: soft, non-tender, no distention, positive bowel sounds Musculoskeletal: no edema, pulses present R foot wounds dressed Neurological: non-focal, normal sensation, moves all 4 limbs Psychiatric: normal affect, A&O x 3 Skin: no rash Dx/Plan (1) C. difficile colitis Status: Acute Comment: Start oral vancomycin + IV flagyl. recurrent (2) Sepsis Code(s): A41.9 - SEPSIS, UNSPECIFIED ORGANISM Status: Acute (3) E coli bacteremia Code(s): R78.81 - BACTEREMIA Status: Acute (4) E-coli UTI Code(s): N39.0 - URINARY TRACT INFECTION, SITE NOT SPECIFIED; B96.20 - UNSP ESCHERICHIA COLI THE CAUSE OF DISEASES CLASSD ELSWHR Status: Acute Comment: MDR (5) Hypokalemia Code(s): E87.6 - HYPOKALEMIA Status: Acute Comment: (6) Hypomagnesemia Code(s): E83.42 - HYPOMAGNESEMIA Status: Acute (7) Thrombocytopenia Code(s): D69.6 - THROMBOCYTOPENIA, UNSPECIFIED Status: Acute Comment: monitor. on Heparin BID for DVT prophylaxis. High risk of DVT (8) H/O Clostridium difficile infection Code(s): Z86.19 - PERSONAL HISTORY OF OTHER INFECTIOUS AND PARASITIC DISEASES Status: Chronic (9) Other issues per previous notes Status: Chronic (10) Diabetes type 2, controlled Code(s): E11.9 - TYPE 2 DIABETES MELLITUS WITHOUT COMPLICATIONS Status: Chronic Comment: (11) Dyslipidemia Code(s): E78.5 - HYPERLIPIDEMIA, UNSPECIFIED Status: Chronic Comment: continue statin (12) Hypertension Code(s): I10 - ESSENTIAL (PRIMARY) HYPERTENSION Status: Chronic Qualifiers: Comment: controlled (13) Multiple myeloma Code(s): C90.00 - MULTIPLE MYELOMA NOT HAVING ACHIEVED REMISSION Status: Chronic Comment: - Plan DVT proph w/SCDs change zosyn to meropenam based on sensitivity -: start PO vanco w IV flagyl. -: replace and recheck lytes. HD stable -: ID recs requested. * . Review of Systems - Review of Systems Constitutional: weakness, malaise ENT: negative: Ear Pain, Ear Discharge, Nose Pain, Nose Discharge, Nose Congestion, Mouth Pain, Mouth Swelling, Throat Pain, Throat Swelling, Other Respiratory: negative: Cough, Dry, Shortness of Breath, Hemoptysis, SOB with Excertion, Pleuritic Pain, Sputum, Wheezing Cardiovascular: negative: chest pain, palpitations, orthopnea, paroxysmal nocturnal dyspnea, edema, light headedness, other Gastrointestinal: negative: Nausea, Vomiting, Abdominal Pain, Diarrhea, Constipation, Melena, Hematochezia, Other Genitourinary: negative: Dysuria, Frequency, Incontinence, Hematuria, Retention , Other Musculoskeletal: negative: Neck Pain, Shoulder Pain, Arm Pain, Back Pain, Hand Pain, Leg Pain, Foot Pain, Other Neurological: negative: Weakness, Numbness, Incoordination, Change in Speech, Confusion, Seizures, Other - Medications/Allergies Allergies/Adverse Reactions: Allergies Allergy/AdvReac Type Severity Reaction Status Date / Time acetaminophen [From Vicodin] Allergy Verified 10/12/18 04:19 codeine Allergy Stomach Verified 10/12/18 04:18 Ache hydrocodone [From Vicodin] Allergy Verified 10/12/18 04:18 morphine Allergy Stomach Verified 10/12/18 04:18 Ache Sulfa (Sulfonamide Allergy Stomach Verified 10/12/18 04:18 Antibiotics) Ache tramadol Allergy Stomach Verified 10/12/18 04:18 Ache Medications: Current Medications Albuterol Sulfate (Proventil Hfa) 2 puff INH Q6H PRN PRN Reason: SOB &/or Wheezing Last Admin: 11/26/18 10:37 Dose: 2 puff Allopurinol (Zyloprim) 300 mg PO DAILY [facility] Last Admin: 11/27/18 11:06 Dose: 300 mg Benzonatate (Tessalon) 100 mg PO Q6H PRN PRN Reason: Cough Bisacodyl (Dulcolax) 10 mg PO DAILYPRN PRN PRN Reason: Constipation Carvedilol (Coreg) 25 mg PO BID [facility] Last Admin: 11/27/18 11:06 Dose: 25 mg Clonidine (Catapres) 0.1 mg PO Q4H PRN PRN Reason: SBP > 160____ Dextrose/Water (Dextrose 50%) 25 gm SLOW IVP PRN PRN PRN Reason: Hypoglycemia Famotidine (Pepcid) 20 mg PO BID [facility] Last Admin: 11/27/18 11:05 Dose: 20 mg Fish Oil (Fish Oil) 1,000 mg PO DAILY [facility] Last Admin: 11/27/18 11:05 Dose: 1,000 mg Furosemide (Lasix) 40 mg PO DAILY [facility] Last Admin: 11/27/18 11:05 Dose: 40 mg Gabapentin (Neurontin) 600 mg PO TID [facility] Last Admin: 11/27/18 11:25 Dose: 600 mg Glucagon (Glucagon) 1 mg IM PRN PRN PRN Reason: Hypoglycemia Heparin Sodium (Porcine) (Heparin) 5,000 units SC BID [facility] Last Admin: 11/27/18 11:08 Dose: 5,000 units Hydralazine HCl (Apresoline) 10 mg SLOW IVP Q4H PRN PRN Reason: SBP > 180 and HR < 70 Dextrose/Water (D5w) 1,000 mls @ 0 mls/hr IV .Q0M PRN PRN Reason: Hypoglycemia Metronidazole 500 mg/ Device 100 mls @ 100 mls/hr IVPB Q6HR [facility] Last Admin: 11/27/18 12:15 Dose: 100 mls Meropenem 1 gm/ Sodium (Chloride) 100 mls @ 200 mls/hr IVPB Q8HR [facility] Ibuprofen (Motrin) 400 mg PO Q6H PRN PRN Reason: Fever/Mild Pain Last Admin: 11/27/18 11:05 Dose: 400 mg Insulin Human Lispro (Humalog) 0 units SC .MODERATE SLIDING SC PRN PRN Reason: Moderate Correctional Scale Insulin Human Lispro (Humalog) 0 units SC .BEDTIME SLIDING SC PRN PRN Reason: Bedtime Correctional Scale Mometasone Furoate/Formoterol Fumar (Dulera 200 Mcg/5 Mcg Inhaler) 2 puff INH BID-RT [facility] Last Admin: 11/27/18 07:21 Dose: 2 puff Nitroglycerin (Nitrostat) 0.4 mg SL Q5MIN PRN PRN Reason: Chest Pain Ondansetron HCl (Zofran) 4 mg IVP Q6H PRN PRN Reason: Nausea/Vomiting Last Admin: 11/26/18 06:38 Dose: 4 mg Multivit/Folic Acid/Iron ( Vitamin) 1 tab PO DAILY [facility] Last Admin: 11/27/18 11:06 Dose: 1 tab Rosuvastatin Calcium (Crestor) 20 mg PO DAILY [facility] Last Admin: 11/27/18 11:04 Dose: 20 mg Saccharomyces Boulardii (Florastor) 250 mg PO BID [facility] Last Admin: 11/27/18 11:05 Dose: 250 mg Sodium Chloride (Flush - Normal Saline) 10 ml IVF Q12HR [facility] Last Admin: 11/27/18 11:08 Dose: Not Given Sodium Chloride (Flush - Normal Saline) 10 ml IVF PRN PRN PRN Reason: Saline Flush Valsartan (Diovan) 160 mg PO DAILY [facility] Last Admin: 11/27/18 11:04 Dose: 160 mg Vancomycin HCl (First Vancomycin) 250 mg PO QID [facility] Last Admin: 11/27/18 12:18 Dose: 10 ml
--- NOTE | 2018-11-27 15:09 | PQF ---
MARVIN REEDER RICHA MD [id number] [facility]-279 [id number] CLINICAL DOCUMENTATION IMPROVEMENT CLARIFICATION FORM: ICD-10 Updated PLEASE DO AN ADDENDUM TO THE PROGRESS NOTE WITH ANY DOCUMENTATION UPDATES OR ADDITIONS AND CARRY THROUGH TO DC SUMMARY. THANK YOU. DATE: 11-27-2018 ATTN: DR. YANES Please exercise your independent, professional judgment in responding to the clarification form. Clinical indicators are provided on the bottom of this form for your review Please check appropriate box(s): [ X ] I (concur) with the Wound Care findings as stated below. [ ] Stage II Sacrococcygeal Pressure Ulcer, POA (Stage I: Erythema; Stage II: Partial thickness; Stage III: Full thickness; Stage IV: Necrosis to muscle/bone) [ ] No pressure ulcer diagnosis [ ] Deep tissue injury [ ] Other diagnosis [ ] Unable to determine For continuity of documentation, please document condition throughout progress notes and discharge summary. Thank You. CLINICAL INDICATORS - SIGNS / SYMPTOMS / LABS Abrasion, blister, partial thickness skin loss involving epidermis and/or dermis (Stage 2) 11/25-ER Nrs Skin Exam: Inspection findings include pressure ulcer to the sacrum , Stage II. 11/25-Nrs Asmt: Sacrococcygeal Pressure Ulcer, Stage II - Partial thickness, red pink wound bed. RISK FACTORS Immobility/ bedridden/ debility Paralysis/ Paraplegia Diminished or absent sensation Malnutrition Trauma TREATMENTS Wound care consult Specialty mattress Thank you, Beverly (This form is maintained as a part of the permanent medical record) 2014 [employer] All Rights Reserved Beverly Bernabe RN, CDIS [email or web address] [phone] [facility]ALTH[facility]
[2018-11-27] MEDS ORDERED: Potassium Chloride 20 MEQ TAB PO SCH (15:15)
[2018-11-27] MEDS: MEROPENEM 1 GM/50 ML 1 GM in Premix Bag 1 BAG IVPB SCH ×2 (18:19→22:52)
[2018-11-27] MEDS: PROVENTIL INHALER 6.7 G (200 INHALATIONS) INH PRN (19:09)
[2018-11-27] MEDS: Melatonin 3 MG TAB PO PRN (20:11)
[2018-11-27] MEDS ORDERED: Clopidogrel Bisulfate 75 MG TAB ONE (22:47)
[2018-11-28] MEDS: metroNIDAZOLE 500 MG in Premix Bag 1 BAG IVPB SCH ×3 (05:29→18:26)
[2018-11-28 05:55] LABS: #Lymphocytes 1.6 thou/uL (1.20-3.40); #Neutrophils 6.3 thou/uL (1.40-6.50); %Basophils 0.2 % (0.0-1.0); %Eosinophils 0.4 % (0.0-10.0); %Lymphocytes 17.9 % (21.0-51.0); %Monocytes 11.4 % (0.0-10.0); %Neutrophils 70.1 % (42.0-75.0); Hemoglobin 7.9 g/dL (12.0-16.0); Mean Corpuscular HGB CONC 30.4 g/dL (32.0-36.0); Mean Corpuscular Hemoglobin 29.6 pg (27.0-31.0); Mean Corpuscular Volume 97.4 fL (78.0-98.0); Mean Platelet Volume 9.5 fL (7.4-10.4); Platelet Count 143 thou/uL (130-400); RBC Distribution Width 16.7 % (11.5-14.5); Red Blood Cell (RBC) Count 2.65 mill/uL (4.20-5.40)
[2018-11-28 06:24] LABS: Anion Gap 9 mmol/L (10-20); BUN (Urea Nitrogen) 11 mg/dL (9.8-20.1); Calc. Creatinine Clearance 41 mL/min (70-130); Calcium 7.8 mg/dL (7.8-10.44); Carbon Dioxide 17 mmol/L (23-31); Chloride 118 mmol/L (98-107); Estimated GFR-MDRD 29; Glucose 67 mg/dL (80-115); Potassium 3.9 mmol/L (3.5-5.1); Sodium 140 mmol/L (136-145)
[2018-11-28] MEDS: MEROPENEM 1 GM/50 ML 1 GM in Premix Bag 1 BAG IVPB SCH ×3 (06:49→23:22)
[2018-11-28] MEDS: Allopurinol 300 MG TAB PO SCH (09:19)
[2018-11-28] MEDS: Carvedilol 25 MG TAB PO SCH ×2 (09:19→21:27)
[2018-11-28] MEDS: Furosemide 40 MG TAB PO SCH (09:19)
[2018-11-28] MEDS: Famotidine 20 MG TAB PO SCH ×2 (09:19→21:27)
[2018-11-28] MEDS: Gabapentin 300 MG CAP PO SCH ×3 (09:19→21:26)
[2018-11-28] MEDS: Fish Oil 1,000 MG CAP PO SCH (09:19)
[2018-11-28] MEDS: Rosuvastatin 20 MG TAB PO SCH (09:20)
[2018-11-28] MEDS: Heparin 5,000 UNITS/ML VIAL SC SCH ×2 (09:20→21:24)
[2018-11-28] MEDS: Valsartan 80 MG TAB PO SCH (09:20)
[2018-11-28] MEDS: Prenatal Vitamin 1 TAB PO SCH (09:20)
[2018-11-28] MEDS: Vancomycin HCl 25 MG/ML Oral PO SCH ×4 (09:21→22:09)
[2018-11-28] MEDS: Saccharomyces boulardii 250 MG CAP PO SCH ×2 (09:21→21:27)
[2018-11-28] MEDS: Ibuprofen 200 MG TAB PO PRN (09:27)
[2018-11-28] MEDS: Mometasone/Formoterol 120 PUFF INHALER INH SCH ×2 (11:26→18:30)
--- NOTE | 2018-11-28 14:10 | PDOC.PN ---
- Subjective Encounter Start Date: 11/28/18 Encounter Start Time: 14:08 Subjective: feels better. ate breakfast this am -: RN reports poor Urine output & poor Po intake -: no N/V/ no abd pain.no significant diarrhea - Objective MAR Reviewed: Yes Vital Signs & Weight: Vital Signs (12 hours) Temp Pulse Pulse Pulse Resp BP BP 11/28/18 12:00 98.1 F 92 20 11/28/18 11:26 79 16 11/28/18 10:20 87 92 112/61 118/65 11/28/18 09:03 96.7 F L 79 19 11/28/18 04:00 97.8 F 82 20 BP Pulse Ox 11/28/18 12:00 137/82 98 11/28/18 11:26 11/28/18 10:20 11/28/18 09:03 121/73 98 11/28/18 04:00 142/109 H 97 Weight Admit Weight 204 lb 9.6 oz Weight 207 lb I&O: 11/27/18 11/28/18 11/29/18 06:59 06:59 06:59 Intake Total 2933 2825 Output Total 700 100 Balance 2233 2725 Result Diagrams: 11/28/18 05:45 11/28/18 05:45 Additional Labs: Accuchecks 11/28/18 11/28/18 11/27/18 10:26 05:35 20:23 POC Glucose 105 79 119 H 11/27/18 17:32 POC Glucose 118 H Microbiology 11/26/18 19:00 Stool C. difficile GDH Antigen & Toxins - Final 11/25/18 12:21 Nasopharyngeal swab Influenza Types A,B Direct EIA - Final 11/25/18 12:13 Urine Straight Catheter Urine Culture - Final Escherichia coli 11/25/18 11:26 Venous blood - Right Hand Blood Culture - Final Escherichia coli 11/25/18 11:30 Venous blood - Left Arm Blood Culture - Preliminary NO GROWTH AT 48 HOURS Laboratory Tests 11/26/18 11/27/18 11/28/18 04:49 05:25 05:45 Creatinine 0.60 0.70 2.09 H Phys Exam - Physical Examination Constitutional: NAD HEENT: PERRLA, moist MMs, sclera anicteric, oral pharynx no lesions Neck: no nodes, no JVD, supple, full ROM Respiratory: no wheezing, no rales, no rhonchi, clear to auscultation bilateral Cardiovascular: RRR, no significant murmur, no rub Gastrointestinal: soft, non-tender, no distention, positive bowel sounds Musculoskeletal: no edema, pulses present Neurological: non-focal, normal sensation, moves all 4 limbs Psychiatric: normal affect, A&O x 3 Skin: no rash Dx/Plan (1) MONIKA (acute kidney injury) Code(s): N17.9 - ACUTE KIDNEY FAILURE, UNSPECIFIED Status: Acute (2) C. difficile colitis Status: Acute Comment: Start oral vancomycin + IV flagyl. recurrent (3) Sepsis Code(s): A41.9 - SEPSIS, UNSPECIFIED ORGANISM Status: Acute (4) E coli bacteremia Code(s): R78.81 - BACTEREMIA Status: Acute (5) E-coli UTI Code(s): N39.0 - URINARY TRACT INFECTION, SITE NOT SPECIFIED; B96.20 - UNSP ESCHERICHIA COLI THE CAUSE OF DISEASES CLASSD ELSWHR Status: Acute Comment: MDR (6) Hypokalemia Code(s): E87.6 - HYPOKALEMIA Status: Acute Comment: (7) Hypomagnesemia Code(s): E83.42 - HYPOMAGNESEMIA Status: Acute (8) Thrombocytopenia Code(s): D69.6 - THROMBOCYTOPENIA, UNSPECIFIED Status: Acute Comment: monitor. on Heparin BID for DVT prophylaxis. High risk of DVT (9) H/O Clostridium difficile infection Code(s): Z86.19 - PERSONAL HISTORY OF OTHER INFECTIOUS AND PARASITIC DISEASES Status: Chronic (10) Other issues per previous notes Status: Chronic (11) Diabetes type 2, controlled Code(s): E11.9 - TYPE 2 DIABETES MELLITUS WITHOUT COMPLICATIONS Status: Chronic Comment: (12) Dyslipidemia Code(s): E78.5 - HYPERLIPIDEMIA, UNSPECIFIED Status: Chronic Comment: continue statin (13) Hypertension Code(s): I10 - ESSENTIAL (PRIMARY) HYPERTENSION Status: Chronic Qualifiers: Comment: controlled (14) Multiple myeloma Code(s): C90.00 - MULTIPLE MYELOMA NOT HAVING ACHIEVED REMISSION Status: Chronic Comment: - Plan DVT proph w/SCDs start IVf as monika and metabolic acidosis.DC lasix for now.DC prn motrin -: am labs -: cont empiric ABx -: wound care.OT/PT. -: ID recs requested. HD stable * . Review of Systems - Review of Systems Constitutional: weakness. negative: fever, chills, sweats, malaise, other ENT: negative: Ear Pain, Ear Discharge, Nose Pain, Nose Discharge, Nose Congestion, Mouth Pain, Mouth Swelling, Throat Pain, Throat Swelling, Other Respiratory: negative: Cough, Dry, Shortness of Breath, Hemoptysis, SOB with Excertion, Pleuritic Pain, Sputum, Wheezing Cardiovascular: negative: chest pain, palpitations, orthopnea, paroxysmal nocturnal dyspnea, edema, light headedness, other Gastrointestinal: negative: Nausea, Vomiting, Abdominal Pain, Diarrhea, Constipation, Melena, Hematochezia, Other Genitourinary: negative: Dysuria, Frequency, Incontinence, Hematuria, Retention , Other Musculoskeletal: Foot Pain. negative: Neck Pain, Shoulder Pain, Arm Pain, Back Pain, Hand Pain, Leg Pain, Other Neurological: negative: Weakness, Numbness, Incoordination, Change in Speech, Confusion, Seizures, Other - Medications/Allergies Allergies/Adverse Reactions: Allergies Allergy/AdvReac Type Severity Reaction Status Date / Time acetaminophen [From Vicodin] Allergy Verified 10/12/18 04:19 codeine Allergy Stomach Verified 10/12/18 04:18 Ache hydrocodone [From Vicodin] Allergy Verified 10/12/18 04:18 morphine Allergy Stomach Verified 10/12/18 04:18 Ache Sulfa (Sulfonamide Allergy Stomach Verified 10/12/18 04:18 Antibiotics) Ache tramadol Allergy Stomach Verified 10/12/18 04:18 Ache Medications: Current Medications Albuterol Sulfate (Proventil Hfa) 2 puff INH Q6H PRN PRN Reason: SOB &/or Wheezing Last Admin: 11/27/18 19:09 Dose: 2 puff Allopurinol (Zyloprim) 300 mg PO DAILY [facility] Last Admin: 11/28/18 09:19 Dose: 300 mg Benzonatate (Tessalon) 100 mg PO Q6H PRN PRN Reason: Cough Bisacodyl (Dulcolax) 10 mg PO DAILYPRN PRN PRN Reason: Constipation Carvedilol (Coreg) 25 mg PO BID [facility] Last Admin: 11/28/18 09:19 Dose: 25 mg Clonidine (Catapres) 0.1 mg PO Q4H PRN PRN Reason: SBP > 160____ Dextrose/Water (Dextrose 50%) 25 gm SLOW IVP PRN PRN PRN Reason: Hypoglycemia Famotidine (Pepcid) 20 mg PO BID [facility] Last Admin: 11/28/18 09:19 Dose: 20 mg Fish Oil (Fish Oil) 1,000 mg PO DAILY [facility] Last Admin: 11/28/18 09:19 Dose: 1,000 mg Gabapentin (Neurontin) 600 mg PO TID [facility] Last Admin: 11/28/18 09:19 Dose: 600 mg Glucagon (Glucagon) 1 mg IM PRN PRN PRN Reason: Hypoglycemia Heparin Sodium (Porcine) (Heparin) 5,000 units SC BID [facility] Last Admin: 11/28/18 09:20 Dose: 5,000 units Hydralazine HCl (Apresoline) 10 mg SLOW IVP Q4H PRN PRN Reason: SBP > 180 and HR < 70 Dextrose/Water (D5w) 1,000 mls @ 0 mls/hr IV .Q0M PRN PRN Reason: Hypoglycemia Metronidazole 500 mg/ Device 100 mls @ 100 mls/hr IVPB Q6HR [facility] Last Admin: 11/28/18 12:05 Dose: 100 mls Meropenem 1 gm/ Device 50 mls @ 100 mls/hr IVPB 0700,1500,2300 [facility] Last Admin: 11/28/18 06:49 Dose: 50 mls Sodium Bicarbonate 100 meq/ (Dextrose/Sodium Chloride) 1,100 mls @ 100 mls/hr IV .Q11H [facility] Last Admin: 11/28/18 12:07 Dose: 1,100 mls Insulin Human Lispro (Humalog) 0 units SC .MODERATE SLIDING SC PRN PRN Reason: Moderate Correctional Scale Insulin Human Lispro (Humalog) 0 units SC .BEDTIME SLIDING SC PRN PRN Reason: Bedtime Correctional Scale Melatonin (Melatonin) 3 mg PO HS PRN PRN Reason: Insomnia Last Admin: 11/27/18 20:11 Dose: 3 mg Mometasone Furoate/Formoterol Fumar (Dulera 200 Mcg/5 Mcg Inhaler) 2 puff INH BID-RT [facility] Last Admin: 11/28/18 11:26 Dose: 2 puff Nitroglycerin (Nitrostat) 0.4 mg SL Q5MIN PRN PRN Reason: Chest Pain Ondansetron HCl (Zofran) 4 mg IVP Q6H PRN PRN Reason: Nausea/Vomiting Last Admin: 11/26/18 06:38 Dose: 4 mg Multivit/Folic Acid/Iron ( Vitamin) 1 tab PO DAILY [facility] Last Admin: 11/28/18 09:20 Dose: 1 tab Rosuvastatin Calcium (Crestor) 20 mg PO DAILY [facility] Last Admin: 11/28/18 09:20 Dose: 20 mg Saccharomyces Boulardii (Florastor) 250 mg PO BID [facility] Last Admin: 11/28/18 09:21 Dose: 250 mg Sodium Chloride (Flush - Normal Saline) 10 ml IVF Q12HR [facility] Last Admin: 11/28/18 09:21 Dose: 10 ml Sodium Chloride (Flush - Normal Saline) 10 ml IVF PRN PRN PRN Reason: Saline Flush Valsartan (Diovan) 160 mg PO DAILY [facility] Last Admin: 11/28/18 09:20 Dose: 160 mg Vancomycin HCl (First Vancomycin) 250 mg PO QID [facility] Last Admin: 11/28/18 13:04 Dose: 250 mg
[2018-11-28] MEDS ORDERED: Lidocaine Patch Removal 1 EACH TOP SCH (15:30)
[2018-11-28] MEDS: Melatonin 3 MG TAB PO PRN (21:40)
--- NOTE | 2018-11-28 22:14 | CT ---
NONCONTRAST ENHANCED CT IMAGES ABDOMEN AND PELVIS 11/28/18 HISTORY: Urinary tract infection. Unable to urinate. History of positive Clostridium difficile. Noncontrast enhanced CT images of the abdomen and pelvis demonstrate a small left sided pleural effus ion. No evidence of free intraperitoneal air seen. Fatty changes seen in the liver. The spleen is unremarkable. Pancreas unremarkable. The gallbladder i s unremarkable. Adrenal glands unremarkable. No evidence of renal masses or lesions seen. No evidence of calculi seen. No evidence of periaortic lymphadenopathy seen. A small right periumbilical anterior abdominal wall hernial defect is seen. The uterus is unremarkable. No dilated loops of bowel seen. The colon is not significantly distended. IMPRESSION: Unremarkable noncontrast enhanced CT images of the abdomen and pelvis. POS: GREG
--- NOTE | 2018-11-28 23:04 | CON ---
DATE OF CONSULTATION: 11/28/2018 REASON FOR CONSULTATION: Bacteremia and urinary tract infection. HISTORY OF PRESENT ILLNESS: A 63-year-old known to me from multiple prior admissions to this hospital. The patient has a history of multiple myeloma, prior recurrent salmonella bacteremia with eventual resolution, pneumonias and then influenza A and subsequently had cytomegalovirus viremia and HSV ulcerations in the perineal area. The last time was in September when she presented with contamination of the sample, which was coagulase-negative Staphylococcus. This time, she came in with nausea, vomiting, delirium, and polyuria. She denied any headaches. No visual symptoms or cough. No chest pain. No abdominal pain. No dysuria. No back pain. Initial temperature 99.5 and then 102.8. She was tachycardic and BP was 140/70. She was snoring loudly. Neck was supple. Lungs clear, better breath sounds. Abdomen is soft and nontender. Initial labs with white cell count 29,000, hemoglobin 8, platelets 177 with 83% neutrophils. Sodium 141, creatinine 0.7 with albumin 2.7, AST 55, ALT 34. Urinalysis with 11 to 20 wbc's. Cultures revealed ESBL E coli, both in urine and blood cultures. She has had this ESBL E coli previously identified in the urine in October 11. A similar E coli was identified in August as well and back in April 2018 is the first time it was identified in her urine. The patient is currently receiving meropenem. She is feeling better. She is back to her baseline mental status. Denies headaches. No change in visual symptoms, sore throat, odynophagia, or dysphagia. No dyspnea. No chest pain. No abdominal pain. Excessive voiding problem has resolved. She is voiding in the diaper and the nurses have been measuring her postvoid and have been normal. 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 ALLERGIES: SULFA DRUGS, TRAMADOL, AND VICODIN. SOCIAL HISTORY: [facility] Long Term resident. Never smoker. FAMILY HISTORY: Noncontributory. CURRENT MEDICATIONS: Include: 1. Proventil. 2. Zyloprim. 3. Tessalon. 4. Dulcolax. 5. Coreg. 6. Catapres. 7. Pepcid. 8. Fish oil. 9. Neurontin. 10. Glucagon. 11. Apresoline. 12. Insulin. 13. Meropenem. 14. Metronidazole. 15. Rosuvastatin. 16. Oral vancomycin. PHYSICAL EXAMINATION: VITAL SIGNS: T-max 99.8, BP 120/83, pulse 81, respirations 16, O2 saturation 93% to 98%. SKIN: Area of ulceration irregular shaped measuring 4 x 10 cm in the medial aspect of the right foot with mostly reddish base. No undermining. Appears to be a quite superficial area of erosion, possibly following blistering. She has a lot of blisters around her elbow and forearm, as well as blisters in the perineal area. The patient has a central line in the right IJ position. She has no lymphadenopathy. HEENT: Ocular movements are conjugate. Sclerae white. Conjunctivae normal. Oral cavity normal. NECK: Supple. Jugular venous distention. LUNGS: Symmetric air entry with faint basilar crackles. HEART: S1 and S2. Diminished heart sounds with a soft aortic murmur. ABDOMEN: Soft, nondistended, nontender. No ascites. No bladder distention. EXTREMITIES: She is able to move extremities with limitation. She is awake, oriented, follows commands. LABORATORY DATA: The latest labs: White cell count 9.0, hemoglobin 7.9, platelets 143, and 70% neutrophils. Creatinine has worsened to 2.09. Bilirubin total 0.5, AST 55, ALT 34, alkaline phosphatase 110. Microbiology with the organisms described above, specifically E coli in the blood and urine culture. She has a C difficile test, which showed antigen and toxin positive. ASSESSMENT: 1. Multiple myeloma. 2. Severe immunosuppression with multiple recurring infections, which have caused numerous admissions. Invasive urinary tract infection with Escherichia coli, which has been present in her urinary tract for the past many months and now has developed into an invasive infectious process. Her last CT of abdomen and pelvis was in April, did not show any obstruction. No nephrolithiasis. 3. Multiple areas of blistering in her skin in upper and lower extremities. DISCUSSION: The patient will need intravenous meropenem or ertapenem in the outpatient setting to complete treatment for invasive UTI. She probably has pyelonephritis. We will repeat her CT stone protocol and will need IV access. I do not think she has a port, so she will probably need a PICC line inserted. She has developed renal insufficiency from the acute infection bacteremia, should be reversible. She does have those blisters and multiple myeloma can be associated with hemorrhagic blisters, but those are not hemorrhagic in nature or in appearance. Recheck her CMV viremia and retreat it if it is still present. Job ID: [id number]
[2018-11-29] MEDS: metroNIDAZOLE 500 MG in Premix Bag 1 BAG IVPB SCH ×5 (00:37→22:58)
[2018-11-29 05:32] LABS: #Lymphocytes 1.6 thou/uL (1.20-3.40); #Monocytes 1.3 thou/uL (0.11-0.59); #Neutrophils 7.4 thou/uL (1.40-6.50); %Basophils 0.2 % (0.0-1.0); %Eosinophils 0.5 % (0.0-10.0); %Neutrophils 71.3 % (42.0-75.0); Hemoglobin 8.1 g/dL (12.0-16.0); Mean Corpuscular HGB CONC 30.5 g/dL (32.0-36.0); Mean Corpuscular Hemoglobin 29.8 pg (27.0-31.0); Mean Corpuscular Volume 97.6 fL (78.0-98.0); Mean Platelet Volume 9.3 fL (7.4-10.4); Platelet Count 154 thou/uL (130-400); RBC Distribution Width 16.9 % (11.5-14.5); Red Blood Cell (RBC) Count 2.71 mill/uL (4.20-5.40); White Blood Cell (WBC) Count 10.3 thou/uL (4.8-10.8)
[2018-11-29 05:54] LABS: Anion Gap 10 mmol/L (10-20); BUN (Urea Nitrogen) 16 mg/dL (9.8-20.1); Calc. Creatinine Clearance 25 mL/min (70-130); Calcium 7.8 mg/dL (7.8-10.44); Carbon Dioxide 17 mmol/L (23-31); Chloride 118 mmol/L (98-107); Estimated GFR-MDRD 16; Glucose 85 mg/dL (80-115); Potassium 3.9 mmol/L (3.5-5.1); Sodium 141 mmol/L (136-145)
[2018-11-29] MEDS: Vancomycin HCl 25 MG/ML Oral PO SCH ×4 (08:49→21:19)
[2018-11-29] MEDS: MEROPENEM 1 GM/50 ML 1 GM in Premix Bag 1 BAG IVPB SCH ×3 (08:52→22:28)
[2018-11-29] MEDS ORDERED: Gabapentin 300 MG CAP PO SCH (09:00)
[2018-11-29] MEDS: Heparin 5,000 UNITS/ML VIAL SC SCH ×2 (09:28→21:20)
[2018-11-29] MEDS: Mometasone/Formoterol 120 PUFF INHALER INH SCH ×2 (10:27→19:36)
[2018-11-29] MEDS: Carvedilol 25 MG TAB PO SCH ×2 (10:39→21:20)
[2018-11-29] MEDS: Rosuvastatin 20 MG TAB PO SCH (10:40)
[2018-11-29] MEDS: Famotidine 20 MG TAB PO SCH ×2 (10:40→21:20)
[2018-11-29] MEDS: Prenatal Vitamin 1 TAB PO SCH (10:40)
[2018-11-29] MEDS: Fish Oil 1,000 MG CAP PO SCH (10:40)
[2018-11-29] MEDS: Allopurinol 100 MG TAB PO SCH (10:40)
[2018-11-29] MEDS: Saccharomyces boulardii 250 MG CAP PO SCH ×2 (10:40→21:20)
[2018-11-29] MEDS: Lidocaine 5% Patch TD SCH (10:41)
--- NOTE | 2018-11-29 13:37 | PDOC.PN ---
- Subjective Encounter Start Date: 11/29/18 Encounter Start Time: 13:36 Subjective: somnolent but arousable -: reduced urine output - Objective Resuscitation Status - Order Detail: 11/29/18 08:08 Resuscitation Status Routine Resuscitation Status: FULL: Full Resuscitation Discussed with: discussed w pt VALENTE Reviewed: Yes Vital Signs & Weight: Vital Signs (12 hours) Temp Pulse Resp BP Pulse Ox 11/29/18 12:47 97.3 F L 89 16 137/71 96 11/29/18 10:27 92 16 11/29/18 08:32 97.1 F L 92 15 114/72 96 11/29/18 04:00 98.5 F 89 20 132/64 97 Weight Admit Weight 204 lb 9.6 oz Weight 223 lb 6.4 oz I&O: 11/28/18 11/29/18 11/30/18 06:59 06:59 06:59 Intake Total 2825 3990 Output Total 100 103 Balance 2725 3887 Result Diagrams: 11/29/18 05:15 11/29/18 05:15 Additional Labs: Accuchecks 11/29/18 11/29/18 11/29/18 11:02 05:27 01:08 POC Glucose 88 88 102 11/28/18 11/28/18 19:41 17:13 POC Glucose 91 146 H Microbiology 11/26/18 19:00 Stool C. difficile GDH Antigen & Toxins - Final 11/25/18 12:21 Nasopharyngeal swab Influenza Types A,B Direct EIA - Final 11/25/18 12:13 Urine Straight Catheter Urine Culture - Final Escherichia coli 11/25/18 11:26 Venous blood - Right Hand Blood Culture - Final Escherichia coli 11/25/18 11:30 Venous blood - Left Arm Blood Culture - Preliminary NO GROWTH AT 48 HOURS Laboratory Tests 11/25/18 11/26/18 11/27/18 11:28 04:49 05:25 Carbon Dioxide 23 21 L 19 L 11/28/18 11/29/18 05:45 05:15 Carbon Dioxide 17 L 17 L Phys Exam - Physical Examination Constitutional: NAD wakes up but appears delirious HEENT: PERRLA, moist MMs, sclera anicteric, oral pharynx no lesions Neck: no nodes, no JVD, supple, full ROM Respiratory: no wheezing, no rales, no rhonchi, clear to auscultation bilateral Cardiovascular: RRR, no significant murmur Gastrointestinal: soft, non-tender, no distention, positive bowel sounds Musculoskeletal: no edema, pulses present Neurological: non-focal, normal sensation, moves all 4 limbs Psychiatric: normal affect Dx/Plan (1) Acute metabolic encephalopathy Code(s): G93.41 - METABOLIC ENCEPHALOPATHY Status: Acute (2) MONIKA (acute kidney injury) Code(s): N17.9 - ACUTE KIDNEY FAILURE, UNSPECIFIED Status: Acute (3) Sepsis Code(s): A41.9 - SEPSIS, UNSPECIFIED ORGANISM Status: Acute (4) Metabolic acidosis Code(s): E87.2 - ACIDOSIS Status: Acute (5) C. difficile colitis Status: Acute Comment: Start oral vancomycin + IV flagyl. recurrent (6) E coli bacteremia Code(s): R78.81 - BACTEREMIA Status: Acute (7) E-coli UTI Code(s): N39.0 - URINARY TRACT INFECTION, SITE NOT SPECIFIED; B96.20 - UNSP ESCHERICHIA COLI THE CAUSE OF DISEASES CLASSD ELSWHR Status: Acute Comment: MDR (8) Hypokalemia Code(s): E87.6 - HYPOKALEMIA Status: Acute Comment: (9) Hypomagnesemia Code(s): E83.42 - HYPOMAGNESEMIA Status: Acute (10) Thrombocytopenia Code(s): D69.6 - THROMBOCYTOPENIA, UNSPECIFIED Status: Acute Comment: monitor. on Heparin BID for DVT prophylaxis. High risk of DVT (11) H/O Clostridium difficile infection Code(s): Z86.19 - PERSONAL HISTORY OF OTHER INFECTIOUS AND PARASITIC DISEASES Status: Chronic (12) Other issues per previous notes Status: Chronic (13) Diabetes type 2, controlled Code(s): E11.9 - TYPE 2 DIABETES MELLITUS WITHOUT COMPLICATIONS Status: Chronic Comment: (14) Dyslipidemia Code(s): E78.5 - HYPERLIPIDEMIA, UNSPECIFIED Status: Chronic Comment: continue statin (15) Hypertension Code(s): I10 - ESSENTIAL (PRIMARY) HYPERTENSION Status: Chronic Qualifiers: Comment: controlled (16) Multiple myeloma Code(s): C90.00 - MULTIPLE MYELOMA NOT HAVING ACHIEVED REMISSION Status: Chronic Comment: - Plan DVT proph w/SCDs worsening renal Fx w poor UO.suspect ATN after NSAID -: consuklt nephro.renal US. avoid all Nephrotoxins -: IVF -: replace & recheck Potassium.Mag.on Bicarb drip for acidosis -: ABx as below.CMV PCR pending. appprecite ID & nephro input * .clinically worse today. monito rclosely * suspect metabolic encephalopathy from MONIKA * PICC today for prison IV ABx * am labs * guarded prognosis w poor baseline & multiple co morbidities Review of Systems - Review of Systems Other: limited due to somnolence - Medications/Allergies Allergies/Adverse Reactions: Allergies Allergy/AdvReac Type Severity Reaction Status Date / Time acetaminophen [From Vicodin] Allergy Verified 10/12/18 04:19 codeine Allergy Stomach Verified 10/12/18 04:18 Ache hydrocodone [From Vicodin] Allergy Verified 10/12/18 04:18 morphine Allergy Stomach Verified 10/12/18 04:18 Ache Sulfa (Sulfonamide Allergy Stomach Verified 10/12/18 04:18 Antibiotics) Ache tramadol Allergy Stomach Verified 10/12/18 04:18 Ache Medications: Current Medications Albuterol Sulfate (Proventil Hfa) 2 puff INH Q6H PRN PRN Reason: SOB &/or Wheezing Last Admin: 11/27/18 19:09 Dose: 2 puff Allopurinol (Zyloprim) 100 mg PO DAILY [facility] Last Admin: 11/29/18 10:40 Dose: 100 mg Benzonatate (Tessalon) 100 mg PO Q6H PRN PRN Reason: Cough Bisacodyl (Dulcolax) 10 mg PO DAILYPRN PRN PRN Reason: Constipation Carvedilol (Coreg) 25 mg PO BID [facility] Last Admin: 11/29/18 10:39 Dose: 25 mg Clonidine (Catapres) 0.1 mg PO Q4H PRN PRN Reason: SBP > 160____ Dextrose/Water (Dextrose 50%) 25 gm SLOW IVP PRN PRN PRN Reason: Hypoglycemia Famotidine (Pepcid) 20 mg PO BID [facility] Last Admin: 11/29/18 10:40 Dose: 20 mg Fish Oil (Fish Oil) 1,000 mg PO DAILY [facility] Last Admin: 11/29/18 10:40 Dose: 1,000 mg Glucagon (Glucagon) 1 mg IM PRN PRN PRN Reason: Hypoglycemia Heparin Sodium (Porcine) (Heparin) 5,000 units SC BID [facility] Last Admin: 11/29/18 09:28 Dose: Not Given Hydralazine HCl (Apresoline) 10 mg SLOW IVP Q4H PRN PRN Reason: SBP > 180 and HR < 70 Dextrose/Water (D5w) 1,000 mls @ 0 mls/hr IV .Q0M PRN PRN Reason: Hypoglycemia Metronidazole 500 mg/ Device 100 mls @ 100 mls/hr IVPB Q6HR [facility] Last Admin: 11/29/18 12:48 Dose: 100 mls Meropenem 1 gm/ Device 50 mls @ 100 mls/hr IVPB 0700,1500,2300 [facility] Last Admin: 11/29/18 08:52 Dose: 50 mls Potassium Chloride 40 meq/Sodium Bicarbonate 150 meq/Dextrose/Water 1,170 mls @ 100 mls/hr IV .[id number] [facility] Last Admin: 11/29/18 10:48 Dose: 1,170 mls Insulin Human Lispro (Humalog) 0 units SC .MODERATE SLIDING SC PRN PRN Reason: Moderate Correctional Scale Insulin Human Lispro (Humalog) 0 units SC .BEDTIME SLIDING SC PRN PRN Reason: Bedtime Correctional Scale Lidocaine (Lidoderm 5% Patch) 1 patch TD DAILY [facility] Last Admin: 11/29/18 10:41 Dose: 1 patch Melatonin (Melatonin) 3 mg PO HS PRN PRN Reason: Insomnia Last Admin: 11/28/18 21:40 Dose: 3 mg Miscellaneous Medication (Lidocaine Patch Removal) 1 each TOP 2100 [facility] Mometasone Furoate/Formoterol Fumar (Dulera 200 Mcg/5 Mcg Inhaler) 2 puff INH BID-RT [facility] Last Admin: 11/29/18 10:27 Dose: 2 puff Nitroglycerin (Nitrostat) 0.4 mg SL Q5MIN PRN PRN Reason: Chest Pain Ondansetron HCl (Zofran) 4 mg IVP Q6H PRN PRN Reason: Nausea/Vomiting Last Admin: 11/26/18 06:38 Dose: 4 mg Multivit/Folic Acid/Iron ( Vitamin) 1 tab PO DAILY [facility] Last Admin: 11/29/18 10:40 Dose: 1 tab Rosuvastatin Calcium (Crestor) 20 mg PO DAILY [facility] Last Admin: 11/29/18 10:40 Dose: 20 mg Saccharomyces Boulardii (Florastor) 250 mg PO BID [facility] Last Admin: 11/29/18 10:40 Dose: 250 mg Sodium Chloride (Flush - Normal Saline) 10 ml IVF Q12HR [facility] Last Admin: 11/29/18 10:41 Dose: 10 ml Sodium Chloride (Flush - Normal Saline) 10 ml IVF PRN PRN PRN Reason: Saline Flush Vancomycin HCl (First Vancomycin) 250 mg PO QID [facility] Last Admin: 11/29/18 12:48 Dose: 250 mg
--- NOTE | 2018-11-29 13:52 | SPC ---
SONOGRAPHIC GUIDED LEFT UPPER EXTREMITY PICC PLACEMENT: Date: 11/29/18 HISTORY: Left arm infection. Need for long-term antibiotics. FINDINGS: After explaining the procedure and answering all questions, the left upper extremity was prepped and draped in the usual sterile fashion. Sterile technique, buffered local anesthesia, sonographic guidan ce, and a 22 gauge needle were used to carefully access the left basilic vein. Standard technique was then used to place the tip of a 5 Chinese dual lumen PICC so that the tip lies at the level of the ca voatrial junction. The catheter was flushed and secured externally. The patient tolerated the procedu re well and was returned in unchanged condition. Fluoro Time: 0 seconds. IMPRESSION: Left upper extremity PICC is ready for use. POS: GREG
--- NOTE | 2018-11-29 16:10 | ULT ---
BILATERAL RENAL SONOGRAM: Date: 11/29/18 HISTORY: Acute renal failure. FINDINGS: Right kidney is 12.4 cm and the left kidney is 13.2 cm. Each has a normal sonographic appearance with out evidence of mass, stone, or hydronephrosis. Urinary bladder is incompletely distended. IMPRESSION: No evidence of urinary tract obstruction. No significant abnormalities are demonstrated. POS: [facility]
[2018-11-29] MEDS: Lidocaine Patch Removal 1 EACH TOP SCH (21:20)
[2018-11-30] MEDS: metroNIDAZOLE 500 MG in Premix Bag 1 BAG IVPB SCH ×3 (05:42→19:10)
[2018-11-30 06:30] LABS: Band 1 % (5-11); Hemoglobin 7.6 g/dL (12.0-16.0); Hypochromia SLIGHT = 6-15 cells (100X) (0-5/hpf); Lymphocytes 9 % (21-51); MDiff Complete? YES; Mean Corpuscular Hemoglobin 29.9 pg (27.0-31.0); Mean Corpuscular Volume 96.5 fL (78.0-98.0); Mean Platelet Volume 9.5 fL (7.4-10.4); Monocytes 1 % (0-10); Neutrophil 89 % (42-75); Platelet Count 139 thou/uL (130-400); Platelet Morphology Comment Appears Adequate; RBC Distribution Width 16.6 % (11.5-14.5); Red Blood Cell (RBC) Count 2.54 mill/uL (4.20-5.40); White Blood Cell (WBC) Count 10.1 thou/uL (4.8-10.8)
[2018-11-30] MEDS: MEROPENEM 1 GM/50 ML 1 GM in Premix Bag 1 BAG IVPB SCH ×2 (06:48→15:59)
[2018-11-30 07:13] LABS: Albumin 1.9 g/dL (3.4-4.8)
[2018-11-30 07:14] LABS: Chloride 115 mmol/L (98-107); Potassium 4.6 mmol/L (3.5-5.1); Sodium 143 mmol/L (136-145)
[2018-11-30 07:15] LABS: Calcium 7.6 mg/dL (7.8-10.44); Glucose 86 mg/dL (80-115)
[2018-11-30 07:17] LABS: Anion Gap 11 mmol/L (10-20); Carbon Dioxide 22 mmol/L (23-31)
[2018-11-30 07:19] LABS: Calc. Creatinine Clearance 21 mL/min (70-130); Estimated GFR-MDRD 12; Phosphorus 5.2 mg/dL (2.3-4.7)
[2018-11-30 07:20] LABS: BUN (Urea Nitrogen) 19 mg/dL (9.8-20.1); BUN/Creatinine Ratio 4.33
[2018-11-30] MEDS: Mometasone/Formoterol 120 PUFF INHALER INH SCH ×2 (07:29→18:52)
--- NOTE | 2018-11-30 11:07 | CON ---
DATE OF CONSULTATION: CONSULTING PHYSICIAN: Manuel Tovar MD REQUESTING PHYSICIAN: Elizabet Massey MD REASON FOR CONSULTATION: Acute kidney injury. IMPRESSION: 1. Acute kidney injury. This is multifactorial including but not limited to the following potential etiologies;. a. Cytokine-mediated acute tubular necrosis in the context of sepsis. b. Combination of nonsteroidal anti-inflammatory drugs in a patient who is on angiotensin receptor antoinette. c. Cannot completely rule out nephrotoxic in light of all the antibiotic medications that the patient is on. d. Hopefully less likely. PLAN: 1. Aggressive adjustment of the patient's medications to reflect severely depressed glomerular filtration rate. We will for now discontinue Neurontin as the patient seems to be having some myoclonic jerks. We will also reduce the dose of allopurinol from 300 to 100 mg. 2. Discontinue and nonsteroidal anti-inflammatory drugs. 3. Bicarb based infusion with potassium supplementation given the fact that improvement of these metabolic acidosis will cause movement of potassium into the cells resulted in possible hypokalemia. 4. Avoid potentially nephrotoxic agents. 5. Renal ultrasound to rule out any potential obstructive component. 6. Hopefully, the patient's renal function will begin to improve. Otherwise, if the patient's renal function continues to decline at this rate, then the patient is looking at renal replacement therapy (hemodialysis) in the next 48 hours. HISTORY OF PRESENT ILLNESS: A 63-year-old female patient who presented here with nausea, vomiting with altered mental status with excessive urination. The patient was diagnosed with sepsis in the context of severe urinary tract infection. The patient also had the recent diagnosis of placed for multiple antibiotic medications over the course of past 24 to 36 hours. The patient's renal function has deteriorated. On presentation, creatinine was 0.7. As we speak creatinine has gone up to 3.5. The patient now having some features of myoclonic jerks and noted to be on 600 mg of Neurontin b.i.d. which is going to be discontinued at this point. As a result of these rapid deterioration in renal function, decision was then taken to involve Renal in the management of this case. PAST MEDICAL HISTORY: Includes CMV with viremia, multiple myeloma, type 2 diabetes mellitus, hypertension, chronic bronchitis, reflux disease, history of C diff. The patient had frequent hospitalization for urinary tract infection. ALLERGIES: TO CODEINE, MORPHINE, SULFA, TRAMADOL, AND VICODIN. SOCIAL HISTORY: No alcohol. No tobacco. No illicit drug use. The patient lives with her son at home. FAMILY HISTORY: Not significantly related to current reason for consultation. MEDICATIONS: Reviewed and as documented on Recommendi. LABORATORY INVESTIGATION: Showed a hemoglobin of 8.1, creatinine of 3.44. PHYSICAL EXAMINATION: GENERAL: The patient was found to be having some myoclonic jerks noted with the following vital signs. VITAL SIGNS: Afebrile, temperature 97.3, pulse 89, respiratory rate of 16, O2 saturation of 96% with blood pressure 137/71. HEENT: Unremarkable. CARDIOVASCULAR: First and second heart sounds were heard. RESPIRATORY SYSTEM: Clear to auscultation. DIGESTIVE: Revealed a benign abdomen with positive bowel sounds. EXTREMITIES: Showed no peripheral edema. LYMPHATICS: No peripheral lymphadenopathy. NEUROLOGIC: Reviewed, the patient has some myoclonic jerks, but no lateralizing signs. SUMMARY: A 63-year-old female patient with sepsis, who is now experiencing rapid deterioration in renal function. Thank you for this consultation. We will follow with you. Job ID: [id number]
[2018-11-30] MEDS: Allopurinol 100 MG TAB PO SCH (12:16)
[2018-11-30] MEDS: Heparin 5,000 UNITS/ML VIAL SC SCH ×2 (12:17→21:27)
[2018-11-30] MEDS: Famotidine 20 MG TAB PO SCH (12:17)
[2018-11-30] MEDS: Fish Oil 1,000 MG CAP PO SCH (12:17)
[2018-11-30] MEDS: Carvedilol 25 MG TAB PO SCH ×2 (12:17→21:14)
[2018-11-30] MEDS: Lidocaine 5% Patch TD SCH (12:18)
[2018-11-30] MEDS: Vancomycin HCl 25 MG/ML Oral PO SCH ×4 (12:18→21:14)
[2018-11-30] MEDS: Rosuvastatin 20 MG TAB PO SCH (12:18)
[2018-11-30] MEDS: Saccharomyces boulardii 250 MG CAP PO SCH ×2 (12:18→21:14)
[2018-11-30] MEDS: Prenatal Vitamin 1 TAB PO SCH (12:18)
--- NOTE | 2018-11-30 16:47 | PDOC.PN ---
- Subjective Encounter Start Date: 11/30/18 Encounter Start Time: 16:25 Subjective: f/u for ATN, encephalopathy with E. coli UTI and C. diff colitis. Remains -: confused per family and nursing worsened over last 48h. - Objective Resuscitation Status - Order Detail: 11/29/18 08:08 Resuscitation Status Routine Resuscitation Status: FULL: Full Resuscitation Discussed with: discussed w pt MAR Reviewed: Yes Vital Signs & Weight: Vital Signs (12 hours) Temp Pulse Pulse Pulse Resp BP BP 11/30/18 10:19 105 H 92 140/78 11/30/18 07:20 97.3 F L 90 12 140/63 Pulse Ox 11/30/18 10:19 11/30/18 07:20 98 Weight Admit Weight 204 lb 9.6 oz Weight 224 lb 9 oz I&O: 11/29/18 11/30/18 12/01/18 06:59 06:59 06:59 Intake Total 3990 2520 Output Total 103 5 Balance 3887 2515 Result Diagrams: 11/30/18 05:52 11/30/18 06:45 Additional Labs: Accuchecks 11/30/18 11/30/18 11/29/18 10:55 05:35 20:38 POC Glucose 93 97 92 11/29/18 17:09 POC Glucose 97 Microbiology 09/14/18 00:30 Stool Stool Occult Blood (FARIBA) - Final 09/14/18 00:30 Stool C. difficile GDH Antigen & Toxins - Final 09/11/18 23:03 Nasopharyngeal swab Influenza Types A,B Direct EIA - Final 09/11/18 22:48 Urine Straight Catheter Urine Culture - Final Escherichia coli 11/26/18 19:00 Stool C. difficile GDH Antigen & Toxins - Final 11/25/18 12:21 Nasopharyngeal swab Influenza Types A,B Direct EIA - Final 11/25/18 12:13 Urine Straight Catheter Urine Culture - Final Escherichia coli 11/25/18 11:30 Venous blood - Left Arm Blood Culture - Final NO GROWTH IN 5 DAYS 11/25/18 11:26 Venous blood - Right Hand Blood Culture - Final Escherichia coli 09/11/18 22:33 Venous blood - Right Arm Blood Culture - Preliminary NO GROWTH AT 48 HOURS 09/11/18 22:33 Venous blood - Left Arm Blood Culture - Preliminary NO GROWTH AT 48 HOURS Laboratory Tests 09/11/18 09/11/1809/13/18 22:42 22:42 06:55 WBC 1.7 L Hgb 7.0 L Plt Count 131 Potassium 3.1 L 2.8 L* Creatinine Phosphorus Magnesium 09/13/18 09/13/18 09/14/18 06:55 14:50 04:22 WBC 2.5 L Hgb 6.4 L 8.1 L Plt Count 106 L Potassium 3.4 L Creatinine Phosphorus Magnesium 1.6 11/27/18 11/28/18 11/28/18 05:25 05:45 05:45 WBC Hgb 6.7 L 7.9 L Plt Count Potassium Creatinine 2.09 H Phosphorus Magnesium 11/29/18 11/29/18 11/30/18 05:15 05:15 06:45 WBC Hgb 8.1 L Plt Count Potassium Creatinine 3.44 H Phosphorus 5.2 H Magnesium Radiology Reviewed by me: Yes (Renal sono - no obstruction) EKG Reviewed by me: Yes (Tele - SR) Phys Exam - Physical Examination opens eyes briefly to name, tactile, mumbles incoherently HEENT: PERRLA, sclera anicteric, oral pharynx no lesions Neck: no nodes, no JVD, supple, full ROM Respiratory: no wheezing, no rales, no rhonchi, clear to auscultation bilateral S1, S2 Cardiovascular: RRR, no significant murmur, no rub, gallop Gastrointestinal: soft, non-tender, no distention, positive bowel sounds RLE with kerlex dressing over large burn of R foot Musculoskeletal: pulses present Neurological: moves all 4 limbs A x O x 1 Skin: normal turgor, cap refill <2 seconds Dx/Plan (1) MONIKA (acute kidney injury) Code(s): N17.9 - ACUTE KIDNEY FAILURE, UNSPECIFIED Status: Acute Comment: Appears to continue clinical decline, consider RN FAMILY, Renal assistance appreciated , avoid nephrotoxic meds and limit contrast exposure (2) Acute metabolic encephalopathy Code(s): G93.41 - METABOLIC ENCEPHALOPATHY Status: Acute Comment: Persistent , likely multifactorial (3) E coli bacteremia Code(s): R78.81 - BACTEREMIA Status: Acute Comment: continue Meropenem (4) E-coli UTI Code(s): N39.0 - URINARY TRACT INFECTION, SITE NOT SPECIFIED; B96.20 - UNSP ESCHERICHIA COLI THE CAUSE OF DISEASES CLASSD ELSWHR Status: Acute Comment: MDR, continue Meropenem (5) Metabolic acidosis Code(s): E87.2 - ACIDOSIS Status: Acute Comment: Improved with bicarbonate gtt (6) Sepsis Code(s): A41.9 - SEPSIS, UNSPECIFIED ORGANISM Status: Acute Comment: Continue Meropenem, improved (7) C. difficile colitis Status: Acute Comment: Start oral vancomycin + IV flagyl. 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
[2018-11-30 16:59] LABS: Bilirubin Negative (Negative); Blood, Urine Large (Negative); Clarity CLOUDY (Clear); Glucose, Urine (Dipstick) Negative (Negative); Leukocyte Large (Negative); Nitrite Negative (Negative); Protein, Urine (Dipstick) 30 mg/dL (Neg-Trace); Specific Gravity, Urine 1.007 (1.002-1.036); Urobilinogen 0.2 mg/dL (0.2-1.0)
[2018-11-30 17:01] LABS: Bacteria/HPF None Seen HPF (None Seen)
[2018-11-30 17:03] LABS: Pathc Cast-AUWi Flag 48.84 (0-2.49)
[2018-11-30 17:09] LABS: Hyaline Casts/LPF NONE SEEN LPF (0-3 Hyaline); Manual Microscopic Reviewed? No Path Casts Seen; Renal Epithelial None Seen HPF (0-3)
[2018-11-30] MEDS ORDERED: metroNIDAZOLE 500 MG TAB PO SCH (18:00)
[2018-11-30] MEDS: Famotidine/PF 20 mg/2ml Vial SLOW IVP SCH (21:27)
[2018-11-30] MEDS: Lidocaine Patch Removal 1 EACH TOP SCH (21:29)
[2018-12-01] MEDS: MEROPENEM 1 GM/50 ML 1 GM in Premix Bag 1 BAG IVPB SCH ×2 (00:40→06:45)
[2018-12-01] MEDS: metroNIDAZOLE 500 MG in Premix Bag 1 BAG IVPB SCH ×2 (01:14→05:32)
[2018-12-01 05:34] LABS: #Basophils 0.1 thou/uL (0.0-0.2); #Eosinphils 0.1 thou/uL (0.0-0.7); #Lymphocytes 1.7 thou/uL (1.20-3.40); #Monocytes 1.5 thou/uL (0.11-0.59); #Neutrophils 8.1 thou/uL (1.40-6.50); %Basophils 0.5 % (0.0-1.0); %Eosinophils 0.8 % (0.0-10.0); %Lymphocytes 15.1 % (21.0-51.0); %Neutrophils 70.6 % (42.0-75.0); Hemoglobin 8.4 g/dL (12.0-16.0); Mean Corpuscular HGB CONC 30.7 g/dL (32.0-36.0); Mean Corpuscular Hemoglobin 29.7 pg (27.0-31.0); Mean Corpuscular Volume 96.8 fL (78.0-98.0); Mean Platelet Volume 9.4 fL (7.4-10.4); Platelet Count 185 thou/uL (130-400); RBC Distribution Width 16.6 % (11.5-14.5); Red Blood Cell (RBC) Count 2.82 mill/uL (4.20-5.40); White Blood Cell (WBC) Count 11.5 thou/uL (4.8-10.8)
[2018-12-01] MEDS: Dextrose 50% Abboject 50 ML SYRINGE SLOW IVP PRN (05:45)
[2018-12-01 05:56] LABS: ALT (SGPT) 23 U/L (8-55); AST (SGOT) 40 U/L (5-34); Alkaline Phosphatase 96 U/L (40-150); Anion Gap 13 mmol/L (10-20); BUN (Urea Nitrogen) 23 mg/dL (9.8-20.1); Bilirubin, Total 0.3 mg/dL (0.2-1.2); Calc. Creatinine Clearance 17 mL/min (70-130); Carbon Dioxide 21 mmol/L (23-31); Chloride 114 mmol/L (98-107); Estimated GFR-MDRD 9; Globulin 5.8 g/dL (2.4-3.5); Glucose 74 mg/dL (80-115); Potassium 5.2 mmol/L (3.5-5.1); Protein, Total 7.8 g/dL (6.0-8.3); Sodium 143 mmol/L (136-145)
[2018-12-01] MEDS: Mometasone/Formoterol 120 PUFF INHALER INH SCH ×2 (07:50→20:36)
[2018-12-01] MEDS: Saccharomyces boulardii 250 MG CAP PO SCH ×2 (08:44→22:10)
[2018-12-01] MEDS: Fish Oil 1,000 MG CAP PO SCH (08:44)
[2018-12-01] MEDS: Allopurinol 100 MG TAB PO SCH (08:44)
[2018-12-01] MEDS: Prenatal Vitamin 1 TAB PO SCH (08:44)
[2018-12-01] MEDS: Carvedilol 25 MG TAB PO SCH ×2 (08:44→22:09)
[2018-12-01] MEDS: Vancomycin HCl 25 MG/ML Oral PO SCH ×4 (08:44→22:11)
[2018-12-01] MEDS: Rosuvastatin 20 MG TAB PO SCH (08:44)
[2018-12-01] MEDS: Heparin 5,000 UNITS/ML VIAL SC SCH ×2 (09:17→22:09)
[2018-12-01] MEDS: Famotidine/PF 20 mg/2ml Vial SLOW IVP SCH ×2 (09:17→22:09)
[2018-12-01] MEDS: Lidocaine 5% Patch TD SCH (09:26)
[2018-12-01 11:08] LABS: HBSAB Concentration 1.34 mIU/mL; HBSAg Index 0.28 S/CO (0-0.99); Hep B Core Total Ab Non-Reactive (NonReactive); Hep B Core Total Index 0.69 S/CO (0-0.79); Hep B Surf AB Non-Reactive (NonReactive); Hep B Surf Ag Non-Reactive S/CO (NonReactive); Hep C IgG Ab Non-Reactive (NonReactive); Hep C Index 0.33 S/CO (0-0.79)
--- NOTE | 2018-12-01 11:54 | PRG ---
DATE OF SERVICE: 12/01/2018 SUBJECTIVE: The patient is seen and examined, very ill looking. Noted with the following vital signs. OBJECTIVE: VITAL SIGNS: Afebrile, temperature 97.9, pulse 92, respiratory rate of 20, O2 saturation are 94% to 97% with blood pressure 150/80. HEENT: Unremarkable. CARDIOVASCULAR SYSTEM: First and second heart sounds were heard. RESPIRATORY SYSTEM: Revealed some wheezing bilaterally. DIGESTIVE: Revealed an obese abdomen. EXTREMITIES: No peripheral edema. SKIN EXAMINATION: No new gross rash. LABORATORY INVESTIGATION: Reviewed. Hemoglobin of 8.4 with a white count of 11,500. Chemistry showed creatinine of 5.52, BUN of 23, bicarbonate of 21, and potassium of 5.2. IMPRESSION: 1. Dense, anuric, acute tubular necrosis, cause likely multifactorial. 2. Hyperkalemia in the context of problem #1. 3. Metabolic acidosis. 4. Incipient respiratory failure in the context of problem listed above. 5. Uremia. PLAN: 1. Emergent hemodialysis is needed. Therefore, we will proceed and secure an emergent right femoral dialysis catheter on the ultrasound guidance and dialysis to follow immediately. 2. If no significant improvement in terms of renal function recovery over the next few days, we will make arrangement for a definitive tunneled dialysis catheter placement in preparation for a long time cause in the context of renal management. 3. Continue to still avoid potentially nephrotoxic agents in order to maximize the chances of renal recovery. Job ID: [id number]
[2018-12-01] MEDS: Meropenem 500 MG in Sodium Chloride 0.9% 100 ML IVPB SCH (12:10)
--- NOTE | 2018-12-01 12:42 | OP ---
DATE OF PROCEDURE: 12/01/2018 PROCEDURE PERFORMED: Right femoral dialysis catheter placement. MEDICATION: 2% lidocaine. COMPLICATIONS: None. BLOOD LOSS: Minimal. DETAILS OF PROCEDURE: After informed consent was obtained, the patient was prepared and draped in a sterile fashion. The right femoral vein was identified with ultrasound and marked. After local anesthesia application with a finder needle, the right femoral vein under real-time ultrasound guidance was cannulated and secured with a wire. Serial dilatation carried out prior to placing the Trialysis catheter. All the ports were accessed for good flow. The patient tolerated the procedure very well with no immediate postop complications. Line is good for use to initiate dialysis. Job ID: [id number]
--- NOTE | 2018-12-01 12:54 | PDOC.PN ---
- Subjective Encounter Start Date: 12/01/18 Encounter Start Time: 12:40 Subjective: f/u for ATN, E. coli UTI and persistent encephalopathy with somnolence. -: Plan for HD today. - Objective Resuscitation Status - Order Detail: 11/29/18 08:08 Resuscitation Status Routine Resuscitation Status: FULL: Full Resuscitation Discussed with: discussed w pt VALENTE Reviewed: Yes Vital Signs & Weight: Vital Signs (12 hours) Temp Pulse Resp BP Pulse Ox 12/01/18 12:10 98.2 F 92 20 138/92 H 98 12/01/18 07:26 97.9 F 92 20 150/80 H 94 L 12/01/18 05:25 97 F L 91 20 135/81 97 Weight Admit Weight 204 lb 9.6 oz Weight 224 lb 6.4 oz I&O: 11/30/18 12/01/18 12/02/18 06:59 06:59 06:59 Intake Total 2520 1782 Output Total 5 310 Balance 2515 1472 Result Diagrams: 12/01/18 05:24 12/01/18 05:24 Additional Labs: Accuchecks 12/01/18 12/01/18 12/01/18 10:46 06:32 05:24 POC Glucose 78 124 H 43 L* 11/30/18 11/30/18 20:17 17:21 POC Glucose 88 90 Microbiology 09/14/18 00:30 Stool Stool Occult Blood (FARIBA) - Final 09/14/18 00:30 Stool C. difficile GDH Antigen & Toxins - Final 09/11/18 23:03 Nasopharyngeal swab Influenza Types A,B Direct EIA - Final 09/11/18 22:48 Urine Straight Catheter Urine Culture - Final Escherichia coli 11/26/18 19:00 Stool C. difficile GDH Antigen & Toxins - Final 11/25/18 12:21 Nasopharyngeal swab Influenza Types A,B Direct EIA - Final 11/25/18 12:13 Urine Straight Catheter Urine Culture - Final Escherichia coli 11/25/18 11:30 Venous blood - Left Arm Blood Culture - Final NO GROWTH IN 5 DAYS 11/25/18 11:26 Venous blood - Right Hand Blood Culture - Final Escherichia coli 09/11/18 22:33 Venous blood - Right Arm Blood Culture - Preliminary NO GROWTH AT 48 HOURS 09/11/18 22:33 Venous blood - Left Arm Blood Culture - Preliminary NO GROWTH AT 48 HOURS Laboratory Tests 09/11/18 09/11/18 09/13/18 22:42 22:42 06:55 WBC 1.7 L Hgb 7.0 L Plt Count 131 Potassium 3.1 L 2.8 L* Carbon Dioxide Creatinine Phosphorus Magnesium Ammonia Hep Bs Antigen Hep Bs Antibody Hep Bs Antibody Index Hep B Core Total Ab Hepatitis C Antibody 09/13/18 09/13/18 09/14/18 06:55 14:50 04:22 WBC 2.5 L Hgb 6.4 L 8.1 L Plt Count 106 L Potassium 3.4 L Carbon Dioxide Creatinine Phosphorus Magnesium 1.6 Ammonia Hep Bs Antigen Hep Bs Antibody Hep Bs Antibody Index Hep B Core Total Ab Hepatitis C Antibody 11/27/18 11/28/18 11/28/18 05:25 05:45 05:45 WBC Hgb 6.7 L 7.9 L Plt Count Potassium Carbon Dioxide Creatinine 2.09 H Phosphorus Magnesium Ammonia Hep Bs Antigen Hep Bs Antibody Hep Bs Antibody Index Hep B Core Total Ab Hepatitis C Antibody 11/29/18 11/29/18 11/30/18 05:15 05:15 05:52 WBC 10.1 Hgb 8.1 L 7.6 L Plt Count Potassium Carbon Dioxide Creatinine 3.44 H Phosphorus Magnesium Ammonia Hep Bs Antigen Hep Bs Antibody Hep Bs Antibody Index Hep B Core Total Ab Hepatitis C Antibody 11/30/18 12/01/18 12/01/18 06:45 05:24 09:30 WBC Hgb Plt Count Potassium 4.6 Carbon Dioxide 22 L Creatinine 4.39 H Phosphorus 5.2 H Magnesium Ammonia 42 Hep Bs Antigen Non-Reactive Hep Bs Antibody Non-Reactive Hep Bs Antibody Index 1.34 Hep B Core Total Ab Non-Reactive Hepatitis C Antibody Non-Reactive EKG Reviewed by me: Yes (Tele - SR) Phys Exam - Physical Examination somnolent, unresponsive, mumbles HEENT: PERRLA, sclera anicteric, oral pharynx no lesions Neck: no nodes, no JVD, supple, full ROM scattered basilar coarse sounds S1, S2 Cardiovascular: RRR, no significant murmur, no rub, gallop Gastrointestinal: soft, non-tender, no distention, positive bowel sounds Musculoskeletal: pulses present, edema present spontaneous movements of extremities Neurological: moves all 4 limbs Skin: normal turgor, cap refill <2 seconds Dx/Plan (1) MONIKA (acute kidney injury) Code(s): N17.9 - ACUTE KIDNEY FAILURE, UNSPECIFIED Status: Acute Comment: 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, Renal assistance appreciated, avoid nephrotoxic meds and limit contrast exposure, may need group home HD (2) Acute metabolic encephalopathy Code(s): G93.41 - METABOLIC ENCEPHALOPATHY Status: Acute Comment: Persistent , likely multifactorial, avoid all psychotropes, sedation and narcotics (3) E coli bacteremia Code(s): R78.81 - BACTEREMIA Status: Acute Comment: continue Meropenem (4) E-coli UTI Code(s): N39.0 - URINARY TRACT INFECTION, SITE NOT SPECIFIED; B96.20 - UNSP ESCHERICHIA COLI THE CAUSE OF DISEASES CLASSD ELSWHR Status: Acute Comment: MDR, continue Meropenem (5) Metabolic acidosis Code(s): E87.2 - ACIDOSIS Status: Acute Comment: Persistent, plan for HD today (6) Sepsis Code(s): A41.9 - SEPSIS, UNSPECIFIED ORGANISM Status: Acute Comment: Continue Meropenem, improved (7) C. difficile colitis Status: Acute Comment: Start oral vancomycin + IV flagyl. 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
[2018-12-01 16:13] LABS: CMV DNA-PCR Test Positive < 200 IU/mL (Negative)
--- NOTE | 2018-12-01 16:40 | PRG ---
DATE OF SERVICE: SUBJECTIVE: Ms. Huggins has developed worsening renal function, which persists. She had a catheter placed in the right groin for the hemodialysis, and right now, she is very delirious, does not interact with the examiner, very encephalopathic. OBJECTIVE: GENERAL: She does not seem to be in distress. VITAL SIGNS: Temperature max 98.3, BP 130/92, pulse 92, respirations 20, and O2 sat 98%. SKIN: Areas of stage 2 small ulcerations in perineal presacral region noted. NEUROLOGIC: She does not establish eye contact. She does not follow commands. The pupils are equal. Conjugate movements are noted. No jugular vein distention. LUNGS: Symmetric air entry with faint basilar crackles. HEART: S1 and S2, regular rate. ABDOMEN: Soft, not distended or tender. NEUROLOGIC: She seems to have movements in extremities, but does not follow commands. LABORATORY DATA: White cell count 11.5, hemoglobin 8.4, and platelets 185. Creatinine 5.52, which is much higher than admission when it was 0.7. AST 40. Albumin 2.0. Microbiology with E coli, which is ESBL phenotype E coli, and C diff antigen and toxin both positive. She is currently receiving meropenem, which is adjusted for renal function. The Flagyl will be adjusted for renal function as well. She actually is unable to take oral medications at this point in time due to her delirium. ASSESSMENT AND DISCUSSION: Multiple myeloma, severe immunosuppression, multiple recurring infections, which have followed numerous admissions for invasive urinary tract infection with extended spectrum beta-lactamase Escherichia coli and evidence of Clostridium difficile colitis, now the patient has developed worsening renal function, which is probably secondary to hemodynamic consequences of the bacteremia. The abdomen and pelvis CT did not show any evidence of obstructive changes. The patient will continue on adjusted dose meropenem, IV Flagyl adjusted dose as well for renal failure or vancomycin which probably may need placement of an NG tube for administration of vancomycin. Hopefully, we will see a reversal of the renal insufficiency, she will be at risk for colonization of the hemodialysis catheter by resistant pathogens including bacterial and fungal pathogens. Job ID: [id number]
--- NOTE | 2018-12-01 18:54 | CT ---
HEAD CT WITHOUT CONTRAST: 12/01/18 HISTORY: Altered mental status. COMPARISON: 05/03/18. FINDINGS: No parenchymal hemorrhage. No extra-axial hematoma. No midline shift. Basilar cisterns are patent. Br ain volume, age appropriate. Cortical isaac-white matter differentiation is preserved. No hydrocephalu s. Adequate aeration of the sinuses and mastoid air cells. Calvarium is intact. IMPRESSION: No acute intracranial process. POS: [facility]
[2018-12-01] MEDS: Lidocaine Patch Removal 1 EACH TOP SCH (22:10)
[2018-12-01] MEDS: metroNIDAZOLE 250 MG IVPB SCH (23:18)
[2018-12-02 05:33] LABS: Band 11 % (5-11); Eosinophils 3 % (0-10); Hemoglobin 8.2 g/dL (12.0-16.0); Lymphocytes 4 % (21-51); MDiff Complete? YES; Mean Corpuscular HGB CONC 31.6 g/dL (32.0-36.0); Mean Corpuscular Hemoglobin 29.5 pg (27.0-31.0); Mean Corpuscular Volume 93.4 fL (78.0-98.0); Mean Platelet Volume 9.2 fL (7.4-10.4); Monocytes 10 % (0-10); Neutrophil 72 % (42-75); Platelet Count 188 thou/uL (130-400); RBC Distribution Width 16.6 % (11.5-14.5); Red Blood Cell (RBC) Count 2.79 mill/uL (4.20-5.40); White Blood Cell (WBC) Count 10.5 thou/uL (4.8-10.8)
[2018-12-02] MEDS: metroNIDAZOLE 250 MG IVPB SCH ×3 (06:24→20:55)
[2018-12-02] MEDS: Mometasone/Formoterol 120 PUFF INHALER INH SCH ×2 (07:24→20:16)
[2018-12-02] MEDS: Fish Oil 1,000 MG CAP PO SCH (08:40)
[2018-12-02] MEDS: Carvedilol 25 MG TAB PO SCH ×2 (08:40→20:54)
[2018-12-02] MEDS: Heparin 5,000 UNITS/ML VIAL SC SCH ×2 (08:40→21:00)
[2018-12-02] MEDS: Lidocaine 5% Patch TD SCH (08:41)
[2018-12-02] MEDS: Prenatal Vitamin 1 TAB PO SCH (08:41)
[2018-12-02] MEDS: Vancomycin HCl 25 MG/ML Oral PO SCH ×4 (08:41→20:54)
[2018-12-02] MEDS: Rosuvastatin 20 MG TAB PO SCH (08:41)
[2018-12-02] MEDS: Saccharomyces boulardii 250 MG CAP PO SCH ×2 (08:41→20:54)
[2018-12-02] MEDS: Famotidine/PF 20 mg/2ml Vial SLOW IVP SCH ×2 (10:18→20:53)
[2018-12-02] MEDS: Meropenem 500 MG in Sodium Chloride 0.9% 100 ML IVPB SCH (11:50)
--- NOTE | 2018-12-02 13:51 | PRG ---
DATE OF SERVICE: 12/02/2018 SUBJECTIVE: Ms. Huggins is more alert. She was able to recognize family members and me, but she still falls asleep pretty promptly and will follow some commands. OBJECTIVE: VITAL SIGNS: T-max is 99.3, blood pressure 140/80, pulse 84, respirations 18, O2 saturation 96. SKIN: Unchanged. HEENT: Ocular movements are conjugate. Sclerae white. Pupils are equal. LUNGS: Symmetric air entry. HEART: S1-S2 regular rate. ABDOMEN: Soft, not distended. No bladder distention. Has an indwelling Martinez catheter and a groin catheter for dialysis. LABORATORY DATA: White cell count is 10.5, hemoglobin 8.2, platelets 188, and the chemistry was not repeated from yesterday. Microbiology with positive C diff. IMAGING: She had a brain CT, which showed no acute intracranial process. ASSESSMENT AND DISCUSSION: Multiple myeloma with various infectious complications in the past few months now with invasive urinary tract infection, has developed renal insufficiency, probably hemodynamically mediated. She also has Clostridium difficile colitis and now has developed encephalopathy from the renal insufficiency and the bacteremia. The patient is currently receiving adjusted dose of meropenem for the urinary tract infection and bacteremia. IV Flagyl and oral vancomycin adjusted for renal function. Hoping for reversal of renal insufficiency. Job ID: [id number]
--- NOTE | 2018-12-02 17:47 | PRG ---
DATE OF SERVICE: 12/02/2018 SUBJECTIVE: The patient is seen and examined, still somnolent, noted with the following vital signs. OBJECTIVE: VITAL SIGNS: Afebrile, temperature 98.7, pulse 88, respiratory rate of 18, O2 saturation 96%, and blood pressure of 160/96. HEENT: Unremarkable. CARDIOVASCULAR SYSTEM: First and second heart sounds were heard. RESPIRATORY SYSTEM: Revealed transmitted sounds. DIGESTIVE: Revealed an obese abdomen. EXTREMITIES: No peripheral edema. SKIN: No new gross rash. LYMPHATICS: No peripheral lymphadenopathy. IMPRESSION: 1. Dense acute tubular necrosis and anuric with uremic symptoms. 2. Sepsis. 3. Immunosuppressant in the context of multiple myeloma. PLAN: 1. The patient to continue with hemodialysis with ultrafiltration as tolerated by hemodynamics. 2. Renally adjust all medications. 3. Further management will be dependent on the clinical course. Job ID: [id number]
[2018-12-02] MEDS: Lidocaine Patch Removal 1 EACH TOP SCH (19:25)
[2018-12-02] MEDS ORDERED: hydrALAZINE 20 MG/ML VIAL SLOW IVP PRN (19:38)
--- NOTE | 2018-12-02 19:44 | PDOC.PN ---
- Subjective Encounter Start Date: 12/02/18 Encounter Start Time: 19:30 Subjective: f/u for metabolic encephalopathy due to uremia and ATN receiving -: HD. Remains lethargic and confused. NPO currently. - Objective Resuscitation Status - Order Detail: 11/29/18 08:08 Resuscitation Status Routine Resuscitation Status: FULL: Full Resuscitation Discussed with: discussed w pt MAR Reviewed: Yes Vital Signs & Weight: Vital Signs (12 hours) Temp Pulse Pulse Pulse Resp BP BP 12/02/18 19:39 99 F 87 18 12/02/18 13:28 98.7 F 88 18 12/02/18 13:21 90 83 160/96 H 181/95 H 12/02/18 07:56 98.9 F 84 18 BP Pulse Ox 12/02/18 19:39 177/82 H 98 12/02/18 13:28 180/96 H 96 12/02/18 13:21 12/02/18 07:56 144/83 H 96 Weight Admit Weight 204 lb 9.6 oz Weight 218 lb I&O: 12/01/18 12/02/18 12/03/18 06:59 06:59 06:59 Intake Total 1782 332 Output Total 310 850 Balance 1472 -518 Result Diagrams: 12/02/18 04:01 12/01/18 05:24 Additional Labs: Accuchecks 12/02/18 12/02/18 12/02/18 17:12 11:13 06:00 POC Glucose 76 76 71 12/01/18 12/01/18 23:43 20:19 POC Glucose 82 75 Microbiology 11/26/18 19:00 Stool C. difficile GDH Antigen & Toxins - Final 11/25/18 12:21 Nasopharyngeal swab Influenza Types A,B Direct EIA - Final 11/25/18 12:13 Urine Straight Catheter Urine Culture - Final Escherichia coli 11/25/18 11:30 Venous blood - Left Arm Blood Culture - Final NO GROWTH IN 5 DAYS 11/25/18 11:26 Venous blood - Right Hand Blood Culture - Final Escherichia coli Laboratory Tests 11/26/18 11/28/18 11/29/18 04:49 05:45 05:15 WBC Hgb Creatinine 2.09 H 3.44 H Phosphorus Magnesium 1.3 L Hep Bs Antigen Hep Bs Antibody Hep B Core Total Ab Hepatitis C Antibody 03/01/1511/30/18 12/01/18 05:52 06:45 05:24 WBC 10.1 11.5 H Hgb 7.6 L 8.4 L Creatinine 4.39 H Phosphorus 5.2 H Magnesium Hep Bs Antigen Hep Bs Antibody Hep B Core Total Ab Hepatitis C Antibody 12/01/18 09:30 WBC Hgb Creatinine Phosphorus Magnesium Hep Bs Antigen Non-Reactive Hep Bs Antibody Non-Reactive Hep B Core Total Ab Non-Reactive Hepatitis C Antibody Non-Reactive Radiology Reviewed by me: Yes (CT brain - no acute process) EKG Reviewed by me: Yes (Tele - SR) Phys Exam - Physical Examination opens eyes to name, tracking with eyes HEENT: PERRLA, sclera anicteric, oral pharynx no lesions Neck: no nodes, no JVD, supple, full ROM Respiratory: no wheezing, no rales, no rhonchi, clear to auscultation bilateral S1, S2 Cardiovascular: RRR, no significant murmur, no rub, gallop Gastrointestinal: soft, non-tender, no distention, positive bowel sounds Musculoskeletal: pulses present, edema present Neurological: moves all 4 limbs A x O x 1 Skin: normal turgor, cap refill <2 seconds Dx/Plan (1) MONIKA (acute kidney injury) Code(s): N17.9 - ACUTE KIDNEY FAILURE, UNSPECIFIED Status: Acute Comment: Continues clinical decline with plans for DETENTION SERGEANT, Renal assistance appreciated, avoid nephrotoxic meds and limit contrast exposure, may need intermediate HD (2) Acute metabolic encephalopathy Code(s): G93.41 - METABOLIC ENCEPHALOPATHY Status: Acute Comment: Persistent , likely multifactorial, avoid all psychotropes, sedation and narcotics, slow improvement currently (3) E coli bacteremia Code(s): R78.81 - BACTEREMIA Status: Acute Comment: continue Meropenem (4) E-coli UTI Code(s): N39.0 - URINARY TRACT INFECTION, SITE NOT SPECIFIED; B96.20 - UNSP ESCHERICHIA COLI THE CAUSE OF DISEASES CLASSD ELSWHR Status: Acute Comment: MDR, continue Meropenem (5) Metabolic acidosis Code(s): E87.2 - ACIDOSIS Status: Acute Comment: Persistent, plan for HD today (6) Sepsis Code(s): A41.9 - SEPSIS, UNSPECIFIED ORGANISM Status: Acute Comment: Continue Meropenem, improved (7) C. difficile colitis Status: Acute Comment: Start oral vancomycin + IV flagyl. recurrent, consider fecal transplant (8) Multiple myeloma Code(s): C90.00 - MULTIPLE MYELOMA NOT HAVING ACHIEVED REMISSION Status: Chronic Comment: Stable but hx of immunosuppression - Plan plan discussed w/ family, continue antibiotics, PT/OT, community mental health social worker, speech therapy Stable currently -: HD session completed today -: Continue Meropenem -: Continue Flagyl IV until taking po -: Start D5NS @ 50ml/h * AM lab: BMP, CBC * SNF options
[2018-12-02] MEDS: Dextrose 50% Abboject 50 ML SYRINGE SLOW IVP PRN (20:45)
[2018-12-02] MEDS: Dextrose 5 % And 0.9 % NaCl 1,000 ML IV SCH (21:22)
[2018-12-03] MEDS: metroNIDAZOLE 250 MG IVPB SCH ×3 (05:28→22:58)
[2018-12-03 06:32] LABS: Albumin 1.9 g/dL (3.4-4.8); Anion Gap 11 mmol/L (10-20); BUN (Urea Nitrogen) 16 mg/dL (9.8-20.1); Calc. Creatinine Clearance 20 mL/min (70-130); Carbon Dioxide 26 mmol/L (23-31); Chloride 108 mmol/L (98-107); Estimated GFR-MDRD 12; Glucose 76 mg/dL (80-115); Phosphorus 4.7 mg/dL (2.3-4.7); Potassium 4.1 mmol/L (3.5-5.1); Sodium 141 mmol/L (136-145)
[2018-12-03 06:55] LABS: Band 4 % (5-11); Eosinophils 3 % (0-10); Lymphocytes 12 % (21-51); MDiff Complete? YES; Mean Corpuscular HGB CONC 30.8 g/dL (32.0-36.0); Mean Corpuscular Hemoglobin 29.6 pg (27.0-31.0); Mean Corpuscular Volume 96.1 fL (78.0-98.0); Mean Platelet Volume 9.3 fL (7.4-10.4); Monocytes 19 % (0-10); Myelocyte 2 % (0-0); Neutrophil 60 % (42-75); Platelet Count 174 thou/uL (130-400); RBC Distribution Width 16.2 % (11.5-14.5); White Blood Cell (WBC) Count 7.3 thou/uL (4.8-10.8)
[2018-12-03] MEDS: Mometasone/Formoterol 120 PUFF INHALER INH SCH ×2 (07:28→19:17)
--- NOTE | 2018-12-03 09:45 | PDOC.PN ---
- Subjective Encounter Start Date: 12/03/18 Encounter Start Time: 09:43 - Objective Resuscitation Status - Order Detail: 11/29/18 08:08 Resuscitation Status Routine Resuscitation Status: FULL: Full Resuscitation Discussed with: discussed w pt Vital Signs & Weight: Vital Signs (12 hours) Temp Pulse Resp BP Pulse Ox 12/03/18 07:30 98.5 F 80 18 137/85 98 12/03/18 05:31 98.9 F 85 18 160/81 H 96 12/03/18 00:18 99 F 69 12 152/76 H 95 Weight Admit Weight 204 lb 9.6 oz Weight 209 lb 14.4 oz I&O: 12/02/18 12/03/18 12/04/18 06:59 06:59 06:59 Intake Total 332 540 Output Total 850 2550 - Result Diagrams: 12/03/18 06:06 12/03/18 06:06 Additional Labs: Accuchecks 12/03/18 12/02/18 12/02/18 05:37 21:26 20:36 POC Glucose 87 114 H 58 L* 12/02/18 12/02/18 17:12 11:13 POC Glucose 76 76 Phys Exam - Physical Examination Constitutional: NAD obese HEENT: PERRLA, moist MMs, sclera anicteric Neck: no nodes, no JVD, supple Respiratory: no wheezing, no rales, no rhonchi Cardiovascular: RRR, no rub faint murmur Gastrointestinal: soft, non-tender, no distention, positive bowel sounds Musculoskeletal: pulses present, edema present (trace) confused not moving LUE or LLE Dx/Plan (1) MONIKA (acute kidney injury) Code(s): N17.9 - ACUTE KIDNEY FAILURE, UNSPECIFIED Status: Acute Comment: Continues clinical decline with plans for GRIEVANCE AND APPEALS SPECIALIST, Renal assistance appreciated, avoid nephrotoxic meds and limit contrast exposure, may need retirement HD (2) Acute metabolic encephalopathy Code(s): G93.41 - METABOLIC ENCEPHALOPATHY Status: Acute Comment: Persistent , likely multifactorial, avoid all psychotropes, sedation and narcotics, slow improvement currently (3) E coli bacteremia Code(s): R78.81 - BACTEREMIA Status: Acute Comment: continue Meropenem (4) E-coli UTI Code(s): N39.0 - URINARY TRACT INFECTION, SITE NOT SPECIFIED; B96.20 - UNSP ESCHERICHIA COLI THE CAUSE OF DISEASES CLASSD ELSWHR Status: Acute Comment: MDR, continue Meropenem (5) Metabolic acidosis Code(s): E87.2 - ACIDOSIS Status: Acute Comment: Persistent, plan for HD today (6) Sepsis Code(s): A41.9 - SEPSIS, UNSPECIFIED ORGANISM Status: Acute Comment: Continue Meropenem, improved (7) Anemia, normocytic normochromic Code(s): D64.9 - ANEMIA, UNSPECIFIED Status: Acute - Plan * Patient currently appears to have a dialysis dependent MONIKA * bacteremia with E.Coli source urine, continue merrem * will obtain swallow evaluation as patient is doing better with HD, if patient passes swallow evaluation will start with clear liquid diet * cont HD and abx for now otherwise with no changes * no family at bedside
[2018-12-03] MEDS: Prenatal Vitamin 1 TAB PO SCH (10:55)
[2018-12-03] MEDS: Rosuvastatin 20 MG TAB PO SCH (10:55)
[2018-12-03] MEDS: Carvedilol 25 MG TAB PO SCH ×2 (10:55→21:25)
[2018-12-03] MEDS: Saccharomyces boulardii 250 MG CAP PO SCH ×2 (10:55→21:26)
[2018-12-03] MEDS: Lidocaine 5% Patch TD SCH (10:55)
[2018-12-03] MEDS: Fish Oil 1,000 MG CAP PO SCH (10:55)
[2018-12-03] MEDS: Heparin 5,000 UNITS/ML VIAL SC SCH ×2 (10:55→21:31)
[2018-12-03] MEDS: Famotidine/PF 20 mg/2ml Vial SLOW IVP SCH ×2 (10:55→21:30)
[2018-12-03] MEDS: Vancomycin HCl 25 MG/ML Oral PO SCH ×4 (10:56→21:47)
[2018-12-03] MEDS: Meropenem 500 MG in Sodium Chloride 0.9% 100 ML IVPB SCH (13:13)
--- NOTE | 2018-12-03 15:31 | PRG ---
DATE OF SERVICE: 12/03/2018 SUBJECTIVE: Ms. Huggins is very alert and awake today, much better than yesterday, had some loose stool. No respiratory symptoms. No abdominal pain. OBJECTIVE: VITAL SIGNS: T-max 99, BP 150/74, pulse 74. GENERAL: Awake, alert, oriented. HEENT: Ocular movements conjugate. LUNGS: Symmetric air entry. CARDIAC: S1 and S2, regular rate. ABDOMEN: Soft. LABORATORY DATA: White cell count 7.3, hemoglobin 8.0, platelets 174. Sodium 141, creatinine 4.44. E coli ESBL noted before in urine and blood. C diff positive stool. ASSESSMENT AND DISCUSSION: Multiple myeloma, various infectious complications in the past few months, now with invasive urinary tract infection with an extended spectrum beta-lactamase Escherichia coli. Acute on chronic renal insufficiency, probably, hemodynamically mediated. Clostridium difficile colitis, which is improving. Speech Therapy will be completed and then we can transition her to oral vancomycin only. She will need to continue on IV meropenem to complete treatment course for about 2 weeks. Job ID: [id number]
--- NOTE | 2018-12-03 19:56 | PRG ---
DATE OF SERVICE: 12/03/2018 SUBJECTIVE: The patient was noted with the following vital signs. OBJECTIVE: VITAL SIGNS: Afebrile. Temperature 99.2, pulse 76, respiratory rate of 18, O2 saturations are 97% with blood pressure 156/88. HEENT: Unremarkable. CARDIOVASCULAR SYSTEM: First and second heart sounds were heard. RESPIRATORY SYSTEM: Clear to auscultation. DIGESTIVE SYSTEM: Revealed a benign abdomen. EXTREMITIES: No peripheral edema. SKIN: No new gross rash. LYMPHATIC: No peripheral lymphadenopathy. IMPRESSION: 1. Acute on chronic kidney disease with profound acute tubular necrosis, now on hemodialysis. 2. Mental status change, which seems to have been improved. 3. Sepsis, on treatment, secondary to urinary tract infection. PLAN: 1. The patient seems to be doing very well on hemodialysis. We will continue with hemodialysis tomorrow, which will be fourth treatment and after that, the patient will not be dialyzed over the weekend. During which, I will re-evaluate the renal function vis-a-vis the possibility of renal recovery to the point of not requiring hemodialysis. 2. Further management will be dependent on the clinical course. The patient seems to be doing much better now. Job ID: [id number]
[2018-12-03] MEDS: Lidocaine Patch Removal 1 EACH TOP SCH (21:30)
[2018-12-04] MEDS: Dextrose 5 % And 0.9 % NaCl 1,000 ML IV SCH (03:57)
[2018-12-04] MEDS: metroNIDAZOLE 250 MG IVPB SCH ×3 (05:49→21:41)
[2018-12-04 06:14] LABS: Albumin 1.8 g/dL (3.4-4.8); Anion Gap 9 mmol/L (10-20); BUN (Urea Nitrogen) 10 mg/dL (9.8-20.1); BUN/Creatinine Ratio 2.84; Calc. Creatinine Clearance 25 mL/min (70-130); Calcium 7.7 mg/dL (7.8-10.44); Carbon Dioxide 28 mmol/L (23-31); Chloride 105 mmol/L (98-107); Estimated GFR-MDRD 16; Glucose 85 mg/dL (80-115); Phosphorus 4.3 mg/dL (2.3-4.7); Potassium 3.5 mmol/L (3.5-5.1); Sodium 138 mmol/L (136-145)
[2018-12-04 06:34] LABS: Band 2 % (5-11); Eosinophils 4 % (0-10); Hemoglobin 7.8 g/dL (12.0-16.0); Lymphocytes 15 % (21-51); MDiff Complete? YES; Mean Corpuscular HGB CONC 30.3 g/dL (32.0-36.0); Mean Corpuscular Volume 95.6 fL (78.0-98.0); Mean Platelet Volume 9.4 fL (7.4-10.4); Monocytes 7 % (0-10); Neutrophil 72 % (42-75); Platelet Count 169 thou/uL (130-400); Platelet Morphology Comment Appears Adequate; RBC Distribution Width 16.2 % (11.5-14.5); Red Blood Cell (RBC) Count 2.71 mill/uL (4.20-5.40); White Blood Cell (WBC) Count 6.5 thou/uL (4.8-10.8)
[2018-12-04] MEDS: Mometasone/Formoterol 120 PUFF INHALER INH SCH ×2 (07:29→18:45)
[2018-12-04] MEDS ORDERED: Heparin 1,000 UNITS/ML VIAL ONE (11:11)
[2018-12-04] MEDS: Epoetin (ESRD) 20,000 UNITS/ML SC SCH (11:56)
[2018-12-04] MEDS: Vancomycin HCl 25 MG/ML Oral PO SCH ×4 (12:28→21:40)
--- NOTE | 2018-12-04 13:03 | PDOC.PN ---
- Subjective Encounter Start Date: 12/04/18 Encounter Start Time: 12:59 Patient seen and examined, no new issues. - Objective Resuscitation Status - Order Detail: 11/29/18 08:08 Resuscitation Status Routine Resuscitation Status: FULL: Full Resuscitation Discussed with: discussed w pt Vital Signs & Weight: Vital Signs (12 hours) Temp Pulse Resp BP Pulse Ox 12/04/18 07:38 98.7 F 76 17 158/83 H 100 12/04/18 07:29 76 16 98 12/04/18 04:03 98.3 F 74 18 151/72 H 98 Weight Admit Weight 204 lb 9.6 oz Weight 203 lb 1.6 oz I&O: 12/03/18 12/04/18 12/05/18 06:59 06:59 06:59 Intake Total 540 1630 Output Total 2550 2850 Balance -2009 Result Diagrams: 12/04/18 05:46 12/04/18 05:46 Additional Labs: Accuchecks 12/04/18 12/04/18 12/03/18 11:06 06:12 20:58 POC Glucose 84 93 80 12/03/18 17:43 POC Glucose 88 Phys Exam - Physical Examination Constitutional: NAD HEENT: PERRLA, moist MMs, sclera anicteric Neck: no nodes, no JVD, supple Respiratory: no wheezing, no rales, no rhonchi Cardiovascular: RRR, no significant murmur, no rub Gastrointestinal: soft, non-tender, no distention, positive bowel sounds Musculoskeletal: pulses present, edema present (trace) Dx/Plan (1) [place] (acute kidney injury) Code(s): N17.9 - ACUTE KIDNEY FAILURE, UNSPECIFIED Status: Acute Comment: Continues clinical decline with plans for MANAGER DATABASE ADMINISTRATION, Renal assistance appreciated, avoid nephrotoxic meds and limit contrast exposure, may need [facility] HD (2) Acute metabolic encephalopathy Code(s): G93.41 - METABOLIC ENCEPHALOPATHY Status: Acute Comment: Persistent , likely multifactorial, avoid all psychotropes, sedation and narcotics, slow improvement currently (3) E coli bacteremia Code(s): R78.81 - BACTEREMIA Status: Acute Comment: continue Meropenem (4) E-coli UTI Code(s): N39.0 - URINARY TRACT INFECTION, SITE NOT SPECIFIED; B96.20 - UNSP ESCHERICHIA COLI THE CAUSE OF DISEASES CLASSD ELSWHR Status: Acute Comment: MDR, continue Meropenem (5) Metabolic acidosis Code(s): E87.2 - ACIDOSIS Status: Acute Comment: Persistent, plan for HD today (6) Sepsis Code(s): A41.9 - SEPSIS, UNSPECIFIED ORGANISM Status: Acute Comment: Continue Meropenem, improved (7) Anemia, normocytic normochromic Code(s): D64.9 - ANEMIA, UNSPECIFIED Status: Acute - Plan * significantly improved, able to converse with me today, she doesn't make much sense but is able to talk * following commands * continue dialysis for now * discussed with junior marketing associate, will hold HD over the weekend to see how the patient does, for now she remains a dialysis dependent [place] * the patient otherwise is stable and improving * continue current plan of care * no family at bedside * call placed to the son but no answer today
--- NOTE | 2018-12-04 13:07 | PRG ---
DATE OF SERVICE: 12/04/2018 SUBJECTIVE: The patient is seen today at dialysis, doing still much better, noted with following vital signs. OBJECTIVE: VITAL SIGNS: Afebrile, temperature 98.3, pulse 74, respiratory rate of 18, O2 saturations 98%, and blood pressure 151/72. HEENT: Unremarkable with moist oral mucosa. NECK: Supple. No conjunctival injection, no icterus. CARDIOVASCULAR: First and second heart sounds were heard. RESPIRATORY: Clear to auscultation. DIGESTIVE: Revealed a benign abdomen with positive bowel sounds. EXTREMITIES: No peripheral edema. SKIN: No new gross rash. LYMPHATICS: No peripheral lymphadenopathy. IMPRESSION: Acute kidney injury in the context of acute tubular necrosis, which seems to be showing some improvement as evidenced by increase in urinary output and the general clinical outlook of the patient. PLAN: 1. The patient after dialysis today will not be dialyzed over the weekend. During which, I will re-evaluate the renal function of this patient vis-a-vis the possibility of some degree of renal recovery. 2. Further management will be dependent on the clinical course as well as the degree of renal recovery. Job ID: [id number]
[2018-12-04] MEDS: Carvedilol 25 MG TAB PO SCH ×2 (13:12→21:39)
[2018-12-04] MEDS: Fish Oil 1,000 MG CAP PO SCH (13:12)
[2018-12-04] MEDS: Prenatal Vitamin 1 TAB PO SCH (13:12)
[2018-12-04] MEDS: Saccharomyces boulardii 250 MG CAP PO SCH ×2 (13:12→21:40)
[2018-12-04] MEDS: Heparin 5,000 UNITS/ML VIAL SC SCH ×2 (13:13→21:40)
[2018-12-04] MEDS: Lidocaine 5% Patch TD SCH (13:13)
[2018-12-04] MEDS: Rosuvastatin 20 MG TAB PO SCH (13:13)
[2018-12-04] MEDS ORDERED: Clopidogrel Bisulfate 75 MG TAB ONE (13:16)
[2018-12-04] MEDS: Famotidine/PF 20 mg/2ml Vial SLOW IVP SCH ×2 (13:18→21:40)
[2018-12-04] MEDS: Meropenem 500 MG in Sodium Chloride 0.9% 100 ML IVPB SCH (13:19)
[2018-12-04] MEDS: Lidocaine Patch Removal 1 EACH TOP SCH (21:42)
[2018-12-04] MEDS: Ondansetron PF 4 MG/2 ML Vial IVP PRN (22:44)
[2018-12-05] MEDS: metroNIDAZOLE 250 MG IVPB SCH ×3 (05:44→22:06)
[2018-12-05 06:51] LABS: Albumin 1.9 g/dL (3.4-4.8); Anion Gap 6 mmol/L (10-20); BUN (Urea Nitrogen) 6 mg/dL (9.8-20.1); BUN/Creatinine Ratio 2.12; Calc. Creatinine Clearance 30 mL/min (70-130); Calcium 7.6 mg/dL (7.8-10.44); Carbon Dioxide 28 mmol/L (23-31); Chloride 105 mmol/L (98-107); Estimated GFR-MDRD 20; Glucose 92 mg/dL (80-115); Phosphorus 3.5 mg/dL (2.3-4.7); Potassium 3.4 mmol/L (3.5-5.1); Sodium 136 mmol/L (136-145)
[2018-12-05] MEDS: Mometasone/Formoterol 120 PUFF INHALER INH SCH ×2 (07:11→20:00)
[2018-12-05 07:15] LABS: Hemoglobin 8.2 g/dL (12.0-16.0); Mean Corpuscular HGB CONC 30.8 g/dL (32.0-36.0); Mean Corpuscular Hemoglobin 29.4 pg (27.0-31.0); Mean Corpuscular Volume 95.4 fL (78.0-98.0); Mean Platelet Volume 9.9 fL (7.4-10.4); Platelet Count 181 thou/uL (130-400); RBC Distribution Width 16.1 % (11.5-14.5); Red Blood Cell (RBC) Count 2.79 mill/uL (4.20-5.40)
[2018-12-05 07:43] LABS: Band 1 % (5-11); Eosinophils 2 % (0-10); Hypochromia SLIGHT = 6-15 cells (100X) (0-5/hpf); Lymphocytes 12 % (21-51); MDiff Complete? YES; Microcytosis SLIGHT = 6-15 cells (100X) (0-5/hpf); Monocytes 21 % (0-10); Neutrophil 62 % (42-75); Platelet Morphology Comment Appears Adequate; Reactive Lymphocytes 2 % (0-10); White Blood Cell (WBC) Count 7.3 thou/uL (4.8-10.8)
[2018-12-05] MEDS: Vancomycin HCl 25 MG/ML Oral PO SCH ×4 (10:01→22:10)
[2018-12-05] MEDS: Saccharomyces boulardii 250 MG CAP PO SCH ×2 (10:02→22:07)
[2018-12-05] MEDS: Prenatal Vitamin 1 TAB PO SCH (10:02)
[2018-12-05] MEDS: Rosuvastatin 20 MG TAB PO SCH (10:02)
[2018-12-05] MEDS: Carvedilol 25 MG TAB PO SCH ×2 (10:02→22:08)
[2018-12-05] MEDS: Heparin 5,000 UNITS/ML VIAL SC SCH ×2 (10:02→22:08)
[2018-12-05] MEDS: Lidocaine 5% Patch TD SCH (10:03)
[2018-12-05] MEDS: Famotidine/PF 20 mg/2ml Vial SLOW IVP SCH ×2 (10:03→22:06)
[2018-12-05] MEDS: Ondansetron PF 4 MG/2 ML Vial IVP PRN ×2 (10:03→17:07)
[2018-12-05] MEDS: Dextrose 5 % And 0.9 % NaCl 1,000 ML IV SCH (10:04)
[2018-12-05] MEDS: Fish Oil 1,000 MG CAP PO SCH (10:05)
--- NOTE | 2018-12-05 10:08 | PDOC.PN ---
- Subjective Encounter Start Date: 12/05/18 Encounter Start Time: 10:07 Subjective: feeling better--accidentally pulled code blue earlier today - Objective Resuscitation Status - Order Detail: 11/29/18 08:08 Resuscitation Status Routine Resuscitation Status: FULL: Full Resuscitation Discussed with: discussed w pt Vital Signs & Weight: Vital Signs (12 hours) Temp Pulse Resp BP Pulse Ox 12/05/18 04:00 98.0 F 79 20 123/69 97 Weight Admit Weight 204 lb 9.6 oz Weight 199 lb 15.348 oz I&O: 12/04/18 12/05/18 12/06/18 06:59 06:59 07:59 Intake Total 1630 1920 Output Total 2850 1800 Balance -1220 120 Result Diagrams: 12/05/18 05:45 12/05/18 05:45 Additional Labs: Accuchecks 12/05/18 12/04/18 12/04/18 05:42 20:36 16:43 POC Glucose 92 89 108 12/04/18 11:06 POC Glucose 84 Phys Exam - Physical Examination Constitutional: NAD HEENT: PERRLA, moist MMs, sclera anicteric, TM's clear Neck: no nodes, no JVD, supple, full ROM Respiratory: no wheezing, no rales, no rhonchi Cardiovascular: RRR, no significant murmur, no rub Gastrointestinal: soft, non-tender, no distention, positive bowel sounds Musculoskeletal: no edema, pulses present Dx/Plan (1) MONIKA (acute kidney injury) Code(s): N17.9 - ACUTE KIDNEY FAILURE, UNSPECIFIED Status: Acute Comment: Continues clinical decline with plans for CAFETERIA AIDE, Renal assistance appreciated, avoid nephrotoxic meds and limit contrast exposure, may need [facility] HD (2) Acute metabolic encephalopathy Code(s): G93.41 - METABOLIC ENCEPHALOPATHY Status: Acute Comment: Persistent , likely multifactorial, avoid all psychotropes, sedation and narcotics, slow improvement currently (3) E coli bacteremia Code(s): R78.81 - BACTEREMIA Status: Acute Comment: continue Meropenem (4) E-coli UTI Code(s): N39.0 - URINARY TRACT INFECTION, SITE NOT SPECIFIED; B96.20 - UNSP ESCHERICHIA COLI THE CAUSE OF DISEASES CLASSD ELSWHR Status: Acute Comment: MDR, continue Meropenem (5) Hypomagnesemia Code(s): E83.42 - HYPOMAGNESEMIA Status: Acute (6) Metabolic acidosis Code(s): E87.2 - ACIDOSIS Status: Acute Comment: Persistent, plan for HD today (7) Sepsis Code(s): A41.9 - SEPSIS, UNSPECIFIED ORGANISM Status: Acute Comment: Continue Meropenem, improved (8) Hypokalemia Code(s): E87.6 - HYPOKALEMIA Status: Acute - Plan plan discussed w/ family, alcantar catheter, continue antibiotics, PT/OT, social worker aide Dialysis on hold through the weekend -: Re-evaluate renal function on friday vis-a-vis the continued need for HD -: Anemia--on Epogen * .
[2018-12-05] MEDS: Meropenem 500 MG in Sodium Chloride 0.9% 100 ML IVPB SCH (12:56)
[2018-12-05] MEDS: Lidocaine Patch Removal 1 EACH TOP SCH (22:13)
[2018-12-06] MEDS: metroNIDAZOLE 250 MG IVPB SCH ×3 (07:23→21:25)
[2018-12-06] MEDS: Mometasone/Formoterol 120 PUFF INHALER INH SCH ×2 (07:46→19:31)
[2018-12-06 08:26] LABS: Anion Gap 8 mmol/L (10-20); BUN (Urea Nitrogen) 11 mg/dL (9.8-20.1); BUN/Creatinine Ratio 2.58; Calc. Creatinine Clearance 19 mL/min (70-130); Calcium 7.7 mg/dL (7.8-10.44); Carbon Dioxide 27 mmol/L (23-31); Chloride 107 mmol/L (98-107); Estimated GFR-MDRD 13; Glucose 81 mg/dL (80-115); Phosphorus 4.5 mg/dL (2.3-4.7); Potassium 3.4 mmol/L (3.5-5.1); Sodium 139 mmol/L (136-145)
[2018-12-06] MEDS: Prenatal Vitamin 1 TAB PO SCH (08:57)
[2018-12-06] MEDS: Carvedilol 25 MG TAB PO SCH ×2 (08:57→20:16)
[2018-12-06] MEDS: Saccharomyces boulardii 250 MG CAP PO SCH ×2 (08:57→20:11)
[2018-12-06] MEDS: Famotidine/PF 20 mg/2ml Vial SLOW IVP SCH ×2 (08:57→20:11)
[2018-12-06] MEDS: Fish Oil 1,000 MG CAP PO SCH (08:57)
[2018-12-06] MEDS: Rosuvastatin 20 MG TAB PO SCH (08:57)
[2018-12-06] MEDS: Lidocaine 5% Patch TD SCH (08:58)
[2018-12-06] MEDS: Heparin 5,000 UNITS/ML VIAL SC SCH ×2 (10:23→20:16)
[2018-12-06] MEDS: Vancomycin HCl 25 MG/ML Oral PO SCH ×4 (11:03→20:15)
[2018-12-06] MEDS ORDERED: Clopidogrel Bisulfate 75 MG TAB ONE (12:14)
[2018-12-06] MEDS: Meropenem 500 MG in Sodium Chloride 0.9% 100 ML IVPB SCH (12:27)
--- NOTE | 2018-12-06 12:53 | PDOC.PN ---
- Subjective Encounter Start Date: 12/06/18 Encounter Start Time: 12:51 Patient seen and examined. No new complaints. No overnight events. c/o bleeding from groin HD catheter site. No cp or sob. - Objective Resuscitation Status - Order Detail: 11/29/18 08:08 Resuscitation Status Routine Resuscitation Status: FULL: Full Resuscitation Discussed with: discussed w pt Vital Signs & Weight: Vital Signs (12 hours) Temp Pulse Pulse Resp BP BP Pulse Ox 12/06/18 12:21 98.4 F 79 16 145/82 H 97 12/06/18 10:44 84 137/83 12/06/18 08:56 98.4 F 82 18 158/80 H 96 12/06/18 08:35 97 12/06/18 07:46 76 18 96 12/06/18 03:20 98.3 F 76 18 146/75 H 98 Weight Admit Weight 204 lb 9.6 oz Weight 198 lb 13.711 oz I&O: 12/05/18 12/06/18 12/07/18 05:59 06:59 06:59 Intake Total Output Total Balance Result Diagrams: 12/05/18 05:45 12/06/18 07:15 Additional Labs: Accuchecks 12/06/18 12/06/18 12/05/18 11:28 05:51 11:56 POC Glucose 81 88 102 Phys Exam - Physical Examination Constitutional: NAD HEENT: sclera anicteric Neck: supple Respiratory: no wheezing Cardiovascular: no significant murmur Gastrointestinal: soft Musculoskeletal: edema present Neurological: non-focal, moves all 4 limbs Psychiatric: A&O x 3 Skin: no rash Dx/Plan (1) MONIKA (acute kidney injury) Code(s): N17.9 - ACUTE KIDNEY FAILURE, UNSPECIFIED Status: Acute Comment: Continues clinical decline with plans for DIRECTOR OF TEACHER EDUCATION, Renal assistance appreciated, avoid nephrotoxic meds and limit contrast exposure, may need care home HD (2) E coli bacteremia Code(s): R78.81 - BACTEREMIA Status: Acute Comment: continue Meropenem (3) E-coli UTI Code(s): N39.0 - URINARY TRACT INFECTION, SITE NOT SPECIFIED; B96.20 - UNSP ESCHERICHIA COLI THE CAUSE OF DISEASES CLASSD ELSWHR Status: Acute Comment: MDR, continue Meropenem (4) Hypokalemia Code(s): E87.6 - HYPOKALEMIA Status: Acute (5) Metabolic acidosis Code(s): E87.2 - ACIDOSIS Status: Acute Comment: Persistent, plan for HD today (6) Hypertension Code(s): I10 - ESSENTIAL (PRIMARY) HYPERTENSION Status: Chronic Qualifiers: Comment: controlled - Plan cont current plan of care, continue antibiotics, PT/OT * . HD per renal DDAVP for uremic bleeding Check AM labs Transfer to Medical.
[2018-12-06] MEDS: Lidocaine Patch Removal 1 EACH TOP SCH (20:12)
--- NOTE | 2018-12-06 21:37 | PRG ---
DATE OF SERVICE: 12/06/2018 SUBJECTIVE: The patient is seen and examined. The event of bleeding around the catheter site noted, but at this point, the patient has no more bleeding. The patient noted with the following vital signs. OBJECTIVE: VITAL SIGNS: Afebrile, temperature 99.8, pulse 86, respiratory rate of 16, O2 saturation are 92%, and blood pressure 142/66. HEENT: Unremarkable. CARDIOVASCULAR: First and second heart sounds were heard. RESPIRATORY: Clear to auscultation. DIGESTIVE: Revealed a benign abdomen with positive bowel sounds. EXTREMITIES: No peripheral edema. SKIN: No new gross rash. LYMPHATICS: No peripheral lymphadenopathy. LABORATORY INVESTIGATION: Showed a potassium of 3.4, BUN of 11 with a creatinine of 4.26, and calcium 7.7. IMPRESSION: 1. Acute tubular necrosis, on hemodialysis. 2. Mild hypokalemia. 3. Bleeding around the catheter site. 4. Sepsis, on treatment. PLAN: 1. Renally dose all medications and avoid potentially nephrotoxic agents. 2. Change the dressing and if bleeding continues, we will probably put around the exit site, but at this point, no bleeding. 3. We will re-evaluate the renal function tomorrow vis-a-vis the possibility of continued hemodialysis. 4. If the patient is going to require long-term dialysis, we will be . 5. Further management will be dependent on the clinical course. Job ID: [id number]
[2018-12-07] MEDS: metroNIDAZOLE 250 MG IVPB SCH ×3 (05:27→22:49)
[2018-12-07 05:57] LABS: Anion Gap 11 mmol/L (10-20); BUN (Urea Nitrogen) 16 mg/dL (9.8-20.1); Calc. Creatinine Clearance 16 mL/min (70-130); Calcium 7.8 mg/dL (7.8-10.44); Carbon Dioxide 25 mmol/L (23-31); Chloride 107 mmol/L (98-107); Estimated GFR-MDRD 10; Glucose 74 mg/dL (80-115); Potassium 3.5 mmol/L (3.5-5.1); Sodium 139 mmol/L (136-145)
[2018-12-07 06:36] LABS: Hemoglobin 7.4 g/dL (12.0-16.0); Hypochromia SLIGHT = 6-15 cells (100X) (0-5/hpf); Lymphocytes 5 % (21-51); MDiff Complete? YES; Mean Corpuscular HGB CONC 30.1 g/dL (32.0-36.0); Mean Corpuscular Hemoglobin 28.6 pg (27.0-31.0); Mean Corpuscular Volume 95.1 fL (78.0-98.0); Mean Platelet Volume 9.6 fL (7.4-10.4); Monocytes 8 % (0-10); Neutrophil 87 % (42-75); Platelet Count 185 thou/uL (130-400); Platelet Morphology Comment Appears Adequate; RBC Distribution Width 16.1 % (11.5-14.5); Red Blood Cell (RBC) Count 2.59 mill/uL (4.20-5.40); White Blood Cell (WBC) Count 8.3 thou/uL (4.8-10.8)
[2018-12-07] MEDS: Mometasone/Formoterol 120 PUFF INHALER INH SCH ×2 (08:24→18:25)
[2018-12-07] MEDS: Saccharomyces boulardii 250 MG CAP PO SCH ×2 (08:47→20:27)
[2018-12-07] MEDS: Rosuvastatin 20 MG TAB PO SCH (08:47)
[2018-12-07] MEDS: Famotidine/PF 20 mg/2ml Vial SLOW IVP SCH ×2 (08:48→20:27)
[2018-12-07] MEDS: Carvedilol 25 MG TAB PO SCH ×2 (08:48→20:27)
[2018-12-07] MEDS: Fish Oil 1,000 MG CAP PO SCH (08:48)
[2018-12-07] MEDS: Heparin 5,000 UNITS/ML VIAL SC SCH ×2 (08:48→20:27)
[2018-12-07] MEDS: Vancomycin HCl 25 MG/ML Oral PO SCH ×4 (08:49→20:26)
[2018-12-07] MEDS: Prenatal Vitamin 1 TAB PO SCH (09:49)
--- NOTE | 2018-12-07 15:38 | PDOC.PN ---
- Subjective Encounter Start Date: 12/07/18 Encounter Start Time: 10:00 Subjective: C/O WEAKNESS BUT IS AFEBRILE - Objective Resuscitation Status - Order Detail: 11/29/18 08:08 Resuscitation Status Routine Resuscitation Status: FULL: Full Resuscitation Discussed with: discussed w pt VALENTE Reviewed: Yes Vital Signs & Weight: Vital Signs (12 hours) Temp Pulse Resp BP Pulse Ox 12/07/18 12:42 99.2 F 80 20 142/71 H 95 12/07/18 08:41 98.9 F 82 18 151/76 H 97 12/07/18 04:00 98.7 F 85 16 140/84 94 L Weight Admit Weight 204 lb 9.6 oz Weight 210 lb I&O: 12/06/18 12/07/18 12/08/18 06:59 06:59 06:59 Intake Total 1450 Output Total 1150 Balance 300 Result Diagrams: 12/07/18 05:15 12/07/18 05:15 Additional Labs: Accuchecks 12/07/18 12/07/18 12/06/18 12:12 04:59 19:53 POC Glucose 94 80 87 12/06/18 12/05/18 12/05/18 17:26 21:16 17:19 POC Glucose 87 90 85 Phys Exam - Physical Examination HEENT: moist MMs, oral pharynx no lesions Neck: no nodes, no JVD Respiratory: no wheezing, no rales Cardiovascular: no significant murmur, no rub Gastrointestinal: soft, non-tender, no distention Musculoskeletal: no edema Neurological: normal sensation Psychiatric: normal affect, A&O x 3 Skin: no rash Dx/Plan (1) MONIKA (acute kidney injury) Code(s): N17.9 - ACUTE KIDNEY FAILURE, UNSPECIFIED Status: Acute Comment: 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, 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 appreciated, avoid nephrotoxic meds and limit contrast exposure, may need nursing home HD (2) Acute metabolic encephalopathy Code(s): G93.41 - METABOLIC ENCEPHALOPATHY Status: Acute Comment: Persistent , likely multifactorial, avoid all psychotropes, sedation and narcotics, slow improvement currently (3) E coli bacteremia Code(s): R78.81 - BACTEREMIA Status: Acute Comment: continue Meropenem (4) E-coli UTI Code(s): N39.0 - URINARY TRACT INFECTION, SITE NOT SPECIFIED; B96.20 - UNSP ESCHERICHIA COLI THE CAUSE OF DISEASES CLASSD ELSWHR Status: Acute Comment: MDR, continue Meropenem (5) Hypokalemia Code(s): E87.6 - HYPOKALEMIA Status: Acute (6) Hypomagnesemia Code(s): E83.42 - HYPOMAGNESEMIA Status: Acute (7) Metabolic acidosis Code(s): E87.2 - ACIDOSIS Status: Acute Comment: Persistent, plan for HD today (8) Sepsis Code(s): A41.9 - SEPSIS, UNSPECIFIED ORGANISM Status: Acute Comment: Continue Meropenem, improved (9) Thrombocytopenia Code(s): D69.6 - THROMBOCYTOPENIA, UNSPECIFIED Status: Acute Comment: monitor. on Heparin BID for DVT prophylaxis. High risk of DVT (10) H/O Clostridium difficile infection Code(s): Z86.19 - PERSONAL HISTORY OF OTHER INFECTIOUS AND PARASITIC DISEASES Status: Resolved (11) Acute bronchitis Code(s): J20.9 - ACUTE BRONCHITIS, UNSPECIFIED Status: Acute Qualifiers: Bronchitis organism: unspecified organism Qualified Code(s): J20.9 - Acute bronchitis, unspecified Comment: due to influenza (12) Anemia, normocytic normochromic Code(s): D64.9 - ANEMIA, UNSPECIFIED Status: Acute (13) C. difficile colitis Status: Acute Comment: Start oral vancomycin + IV flagyl. 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 Code(s): B00.9 - HERPESVIRAL INFECTION, UNSPECIFIED Status: Acute (17) Hypokalemia Code(s): E87.6 - HYPOKALEMIA Status: Acute Comment: (18) Influenza A Code(s): J10.1 - FLU DUE TO OTH IDENT INFLUENZA VIRUS W OTH RESP MANIFEST Status: Acute (19) Physical deconditioning Code(s): R53.81 - OTHER MALAISE Status: Acute Comment: awaiting SNU (20) Sepsis with acute organ dysfunction Code(s): A41.9 - SEPSIS, UNSPECIFIED ORGANISM; R65.20 - SEVERE SEPSIS WITHOUT SEPTIC SHOCK Status: Acute (21) Diabetes type 2, controlled Code(s): E11.9 - TYPE 2 DIABETES MELLITUS WITHOUT COMPLICATIONS Status: Chronic Qualifiers: Diabetes mellitus superintendent container terminal insulin use: with half-way use Diabetes mellitus complication status: with circulatory complication Plan: 1.WILL D/C VANCOMYCIN AFTER TODAY PATIENT COMPLETES HER C DIFF DIARRHEA TREATMENT. 2.CONTINUE MERREM FOR GRAM NEGATIVE BACTEREMIA. Comment: (22) Dyslipidemia Code(s): E78.5 - HYPERLIPIDEMIA, UNSPECIFIED Status: Chronic Comment: continue statin (23) Hypertension Code(s): I10 - ESSENTIAL (PRIMARY) HYPERTENSION Status: Chronic Qualifiers: Comment: controlled (24) Morbid obesity with BMI of 40.0-44.9, adult Code(s): E66.01 - MORBID (SEVERE) OBESITY DUE TO EXCESS CALORIES; Z68.41 - BODY MASS INDEX (BMI) 40.0-44.9, ADULT Status: Chronic (25) Multiple myeloma Code(s): C90.00 - MULTIPLE MYELOMA NOT HAVING ACHIEVED REMISSION Status: Chronic Comment: Stable but hx of immunosuppression (26) Other issues per previous notes Status: Chronic (27) Acute worsening of stage 3 chronic kidney disease Code(s): N18.3 - CHRONIC KIDNEY DISEASE, STAGE 3 (MODERATE) Status: Resolved (28) Hypoglycemia associated with type 2 diabetes mellitus Code(s): E11.649 - TYPE 2 DIABETES MELLITUS WITH HYPOGLYCEMIA WITHOUT COMA Status: Resolved (29) Hypophosphatemia Code(s): E83.39 - OTHER DISORDERS OF PHOSPHORUS METABOLISM Status: Resolved - Plan continue antibiotics, PT/OT, out of bed/ambulate * .
[2018-12-07] MEDS: Meropenem 500 MG in Sodium Chloride 0.9% 100 ML IVPB SCH (16:34)
[2018-12-07] MEDS: Lidocaine 5% Patch TD SCH (17:35)
[2018-12-07] MEDS ORDERED: traMADol HCl 50 MG TAB PO PRN (17:43)
--- NOTE | 2018-12-07 20:00 | PRG ---
DATE OF SERVICE: 12/07/2018 SUBJECTIVE: The patient is seen and examined, seems to be doing okay and noted with the following vital signs. OBJECTIVE: VITAL SIGNS: Afebrile, temperature 98.9, pulse 82, respiratory rate of 18, O2 saturation 97%, and blood pressure 151/76. HEENT: Unremarkable. CARDIOVASCULAR SYSTEM: First and second heart sounds were heard. RESPIRATORY SYSTEM: Clear to auscultation. DIGESTIVE SYSTEM: Revealed a benign abdomen. Positive bowel sounds. EXTREMITIES: No peripheral edema. SKIN: No new gross rash. LYMPHATICS: No peripheral lymphadenopathy. LABORATORY INVESTIGATION: Showed a hemoglobin of 7.4, creatinine of 5.15. IMPRESSION: 1. Acute kidney injury, seems not fully recovered at this point. 2. Anemia. 3. Bacteremia. PLAN: 1. We will keep this patient on Friday, Friday, and Friday dialysis schedule without any ultrafiltration. 2. Anemia management with erythropoiesis-stimulating agent. 3. Further management will be dependent on the clinical course. We will continue to monitor the anemia and the hemoglobin of this patient vis-a-vis the need for transfusion at any point in time. Meanwhile, we will continue with erythropoiesis-stimulating agent. Job ID: [id number]
[2018-12-08] MEDS: Lidocaine Patch Removal 1 EACH TOP SCH ×2 (02:00→20:56)
[2018-12-08] MEDS: metroNIDAZOLE 250 MG IVPB SCH (05:44)
[2018-12-08] MEDS: Mometasone/Formoterol 120 PUFF INHALER INH SCH ×2 (07:05→19:24)
[2018-12-08] MEDS: Saccharomyces boulardii 250 MG CAP PO SCH ×2 (08:15→20:56)
[2018-12-08] MEDS: Prenatal Vitamin 1 TAB PO SCH (08:16)
[2018-12-08] MEDS: Carvedilol 25 MG TAB PO SCH ×2 (08:16→20:56)
[2018-12-08] MEDS: Rosuvastatin 20 MG TAB PO SCH (08:16)
[2018-12-08] MEDS: Famotidine/PF 20 mg/2ml Vial SLOW IVP SCH ×2 (08:19→20:56)
[2018-12-08] MEDS: Heparin 5,000 UNITS/ML VIAL SC SCH ×2 (08:19→20:56)
[2018-12-08] MEDS: Fish Oil 1,000 MG CAP PO SCH (08:20)
[2018-12-08] MEDS: Meropenem 500 MG in Sodium Chloride 0.9% 100 ML IVPB SCH (08:23)
[2018-12-08] MEDS: Ondansetron PF 4 MG/2 ML Vial IVP PRN ×2 (11:11→21:08)
--- NOTE | 2018-12-08 13:14 | PDOC.PN ---
- Subjective Encounter Start Date: 12/08/18 Encounter Start Time: 09:35 Subjective: C/O GENERALISED WEAKNESS - Objective Resuscitation Status - Order Detail: 11/29/18 08:08 Resuscitation Status Routine Resuscitation Status: FULL: Full Resuscitation Discussed with: discussed w pt VALENTE Reviewed: Yes Vital Signs & Weight: Vital Signs (12 hours) Temp Pulse Resp BP BP Pulse Ox 12/08/18 12:08 98.6 F 12/08/18 08:00 98.7 F 85 20 136/87 96 12/08/18 07:05 84 14 94 L 12/08/18 04:36 99.5 F 82 20 134/65 94 L Weight Admit Weight 204 lb 9.6 oz Weight 207 lb 15.075 oz I&O: 12/07/18 12/08/18 12/09/18 06:59 06:59 06:59 Intake Total 1450 1550 Output Total 1150 400 Balance 300 1150 Result Diagrams: 12/07/18 05:15 12/07/18 05:15 Additional Labs: Accuchecks 12/08/18 12/08/18 12/07/18 11:49 04:41 19:42 POC Glucose 80 73 79 12/07/18 17:24 POC Glucose 73 Phys Exam - Physical Examination HEENT: moist MMs Neck: no JVD, supple Respiratory: no wheezing, no rales, no rhonchi Cardiovascular: no significant murmur, no rub Gastrointestinal: soft, non-tender, no distention Musculoskeletal: pulses present, edema present Neurological: non-focal, normal sensation, moves all 4 limbs Psychiatric: normal affect, A&O x 3 Skin: no rash Dx/Plan (1) MONIKA (acute kidney injury) Code(s): N17.9 - ACUTE KIDNEY FAILURE, UNSPECIFIED Status: Acute Comment: 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 (2) Acute metabolic encephalopathy Code(s): G93.41 - METABOLIC ENCEPHALOPATHY Status: Acute Comment: Persistent , likely multifactorial, avoid all psychotropes, sedation and narcotics.Significant improvement noted. (3) E coli bacteremia Code(s): R78.81 - BACTEREMIA Status: Acute Comment: continue Meropenem (4) E-coli UTI Code(s): N39.0 - URINARY TRACT INFECTION, SITE NOT SPECIFIED; B96.20 - UNSP ESCHERICHIA COLI THE CAUSE OF DISEASES CLASSD ELSWHR Status: Acute Comment: MDR, continue Meropenem (5) Hypokalemia Code(s): E87.6 - HYPOKALEMIA Status: Resolved (6) Hypomagnesemia Code(s): E83.42 - HYPOMAGNESEMIA Status: Resolved (7) Metabolic acidosis Code(s): E87.2 - ACIDOSIS Status: Resolved Comment: On HD. (8) Sepsis Code(s): A41.9 - SEPSIS, UNSPECIFIED ORGANISM Status: Resolved Comment: Continue Meropenem, improved (9) Thrombocytopenia Code(s): D69.6 - THROMBOCYTOPENIA, UNSPECIFIED Status: Acute Comment: monitor. on Heparin BID for DVT prophylaxis. High risk of DVT (10) H/O Clostridium difficile infection Code(s): Z86.19 - PERSONAL HISTORY OF OTHER INFECTIOUS AND PARASITIC DISEASES Status: Resolved (11) Acute bronchitis Code(s): J20.9 - ACUTE BRONCHITIS, UNSPECIFIED Status: Acute Qualifiers: Bronchitis organism: unspecified organism Qualified Code(s): J20.9 - Acute bronchitis, unspecified Comment: due to influenza (12) Anemia, normocytic normochromic Code(s): D64.9 - ANEMIA, UNSPECIFIED Status: Acute Plan: To use erythropiten supplements. (13) C. difficile colitis Status: Acute Comment: Start oral vancomycin + IV flagyl. 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 Code(s): B00.9 - HERPESVIRAL INFECTION, UNSPECIFIED Status: Acute (17) Hypokalemia Code(s): E87.6 - HYPOKALEMIA Status: Acute Comment: (18) Influenza A Code(s): J10.1 - FLU DUE TO OTH IDENT INFLUENZA VIRUS W OTH RESP MANIFEST Status: Acute (19) Physical deconditioning Code(s): R53.81 - OTHER MALAISE Status: Acute Comment: awaiting SNU (20) Sepsis with acute organ dysfunction Code(s): A41.9 - SEPSIS, UNSPECIFIED ORGANISM; R65.20 - SEVERE SEPSIS WITHOUT SEPTIC SHOCK Status: Acute (21) Diabetes type 2, controlled Code(s): E11.9 - TYPE 2 DIABETES MELLITUS WITHOUT COMPLICATIONS Status: Chronic Qualifiers: Diabetes mellitus assisted insulin use: with assisted use Diabetes mellitus complication status: with circulatory complication Comment: (22) Dyslipidemia Code(s): E78.5 - HYPERLIPIDEMIA, UNSPECIFIED Status: Chronic Comment: continue statin (23) Hypertension Code(s): I10 - ESSENTIAL (PRIMARY) HYPERTENSION Status: Chronic Qualifiers: Comment: controlled (24) Morbid obesity with BMI of 40.0-44.9, adult Code(s): E66.01 - MORBID (SEVERE) OBESITY DUE TO EXCESS CALORIES; Z68.41 - BODY MASS INDEX (BMI) 40.0-44.9, ADULT Status: Chronic (25) Multiple myeloma Code(s): C90.00 - MULTIPLE MYELOMA NOT HAVING ACHIEVED REMISSION Status: Chronic Comment: Stable but hx of immunosuppression (26) Other issues per previous notes Status: Chronic (27) Acute worsening of stage 3 chronic kidney disease Code(s): N18.3 - CHRONIC KIDNEY DISEASE, STAGE 3 (MODERATE) Status: Acute (28) Hypoglycemia associated with type 2 diabetes mellitus Code(s): E11.649 - TYPE 2 DIABETES MELLITUS WITH HYPOGLYCEMIA WITHOUT COMA Status: Resolved (29) Hypophosphatemia Code(s): E83.39 - OTHER DISORDERS OF PHOSPHORUS METABOLISM Status: Resolved - Plan 1.Ongoing HD per nephrology reccs. -: 2.C diff treatment completed. -: 3.Ongoing treatment for gram negative bacteremia,on Merrem. * .
[2018-12-08] MEDS: Lidocaine 5% Patch TD SCH (14:51)
--- NOTE | 2018-12-08 15:53 | PRG ---
DATE OF SERVICE: 12/08/2018 SUBJECTIVE: Ms. Huggins is having some weakness. No abdominal pain. No more diarrhea. OBJECTIVE: VITAL SIGNS: T-max of 99.5 and O2 saturation 96%. HEENT: Ocular movements conjugate. LUNGS: Clear. HEART: Normal. ABDOMEN: Soft and nontender. LABORATORY DATA: White cell count 8.3, hemoglobin 7.4, platelets 185, and 87% neutrophils. Creatinine 5.15. Sodium 139 and bilirubin 0.3. CMV DNA Ultraquant negative. ASSESSMENT AND DISCUSSION: Myeloma with various infectious complications in the past few months, now with invasive urinary tract infection and then Clostridium difficile colitis, which has improved. The patient will need to continue for a full 2 weeks of IV meropenem or ertapenem. The Clostridium difficile treatment will be completed with I would recommend a taper vancomycin taper over the course of 1 month to decrease the risk of relapse. Discontinue Flagyl. Job ID: [id number]
--- NOTE | 2018-12-08 19:53 | PRG ---
DATE OF SERVICE: 12/08/2018 SUBJECTIVE: The patient is seen and examined, seems to be doing much better, noted with the following vital signs. OBJECTIVE: VITAL SIGNS: Afebrile, temperature 98.7, pulse 85, respiratory rate of 20, O2 saturations are 96% with blood pressure 136/87. HEENT: Unremarkable. CARDIOVASCULAR SYSTEM: First and second heart sounds were heard. RESPIRATORY SYSTEM: Clear to auscultation. DIGESTIVE SYSTEM: Revealed a benign abdomen with positive bowel sounds. EXTREMITIES: No peripheral edema. SKIN: No new gross rash. LYMPHATICS: No peripheral lymphadenopathy. IMPRESSION: 1. Acute tubular necrosis, on hemodialysis. 2. Anemia of multiple etiology. 3. Sepsis. PLAN: 1. Discontinue Martinez catheter. 2. The patient's renal function to be re-evaluated tomorrow with laboratory test. 3. Further management will be dependent on the clinical course. Job ID: [id number]
[2018-12-09 06:50] LABS: Anion Gap 11 mmol/L (10-20); BUN (Urea Nitrogen) 14 mg/dL (9.8-20.1); Calc. Creatinine Clearance 20 mL/min (70-130); Carbon Dioxide 25 mmol/L (23-31); Chloride 105 mmol/L (98-107); Estimated GFR-MDRD 13; Glucose 69 mg/dL (80-115); Potassium 3.5 mmol/L (3.5-5.1); Sodium 137 mmol/L (136-145)
[2018-12-09 06:56] LABS: Hemoglobin 7.6 g/dL (12.0-16.0); Hypochromia SLIGHT = 6-15 cells (100X) (0-5/hpf); Lymphocytes 7 % (21-51); MDiff Complete? YES; Mean Corpuscular HGB CONC 29.8 g/dL (32.0-36.0); Mean Corpuscular Hemoglobin 27.8 pg (27.0-31.0); Mean Platelet Volume 9.5 fL (7.4-10.4); Monocytes 3 % (0-10); Neutrophil 90 % (42-75); Platelet Count 231 thou/uL (130-400); Platelet Morphology Comment Appears Adequate; RBC Distribution Width 16.2 % (11.5-14.5); Red Blood Cell (RBC) Count 2.72 mill/uL (4.20-5.40); White Blood Cell (WBC) Count 9.2 thou/uL (4.8-10.8)
[2018-12-09] MEDS: Mometasone/Formoterol 120 PUFF INHALER INH SCH ×2 (07:09→18:51)
[2018-12-09] MEDS: Fish Oil 1,000 MG CAP PO SCH (09:50)
[2018-12-09] MEDS: Saccharomyces boulardii 250 MG CAP PO SCH ×2 (09:50→20:01)
[2018-12-09] MEDS: Prenatal Vitamin 1 TAB PO SCH (09:51)
[2018-12-09] MEDS: Heparin 5,000 UNITS/ML VIAL SC SCH ×2 (09:51→20:01)
[2018-12-09] MEDS: Carvedilol 25 MG TAB PO SCH ×2 (09:51→20:01)
[2018-12-09] MEDS: Rosuvastatin 20 MG TAB PO SCH (09:51)
[2018-12-09] MEDS: Famotidine/PF 20 mg/2ml Vial SLOW IVP SCH ×2 (09:51→20:01)
[2018-12-09] MEDS: Lidocaine 5% Patch TD SCH (09:52)
[2018-12-09] MEDS: Vancomycin HCl 25 MG/ML Oral PO SCH (09:52)
[2018-12-09] MEDS: Meropenem 500 MG in Sodium Chloride 0.9% 100 ML IVPB SCH (13:33)
--- NOTE | 2018-12-09 15:54 | PRG ---
DATE OF SERVICE: 12/09/2018 SUBJECTIVE: The patient is seen and examined at the bedside. She does not have much complaints to offer. OBJECTIVE: VITAL SIGNS: Blood pressure is 142/72, pulse 87, temperature 99.0, that is the maximal temperature, respirations 16, O2 saturation is 93% on room air. HEENT: Head is atraumatic and normocephalic. Eyes are PERRLA. Sclerae are nonicteric. Oral mucosa is moist. NECK: Supple. LUNGS: Breath sounds somewhat diminished at both bases. HEART: S1, S2 normal. No S3. No S4. ABDOMEN: Obese, nontender. Bowel sounds are present. No organomegaly. EXTREMITIES: No clubbing or cyanosis. 1+ peripheral edema similar bilaterally. NEUROLOGICAL EXAMINATION: She is alert and oriented x4. There are no any motor or sensory deficits. Cranial nerves are intact. LABORATORY DATA: Labs showed white count of 9.2, hemoglobin 7.6, hematocrit 25.3, platelet count 231,000. Normal electrolytes. Creatinine 4.26, glucose 69, calcium 8.0. Glycemia is ranging from 74 to 81. IMPRESSION: 1. injury. Per Dr. Jackson's recommendation, we are holding hemodialysis and watch her kidney function with creatinine levels daily to see whether the function is coming back or she will need to stay on dialysis. So tomorrow morning, we will do the BMP and the next day, we will do the BMP too. 2. Acute metabolic encephalopathy, acute, improved. 3. Escherichia coli bacteremia. 4. Escherichia coli urinary tract infection. 5. Hypokalemia, resolved. 6. Hypomagnesemia, resolved. 7. Metabolic acidosis, resolved. 8. Sepsis, on meropenem. 9. Thrombocytopenia. 10. Normocytic normochromic anemia. 11. Type 2 diabetes mellitus. 12. Hypertension. 13. Cytomegalovirus multiple myeloma, chronic. PLAN: The patient will continue on meropenem for additional 2 weeks. Also, we will continue her vancomycin for one month to prevent recurrence of her Clostridium difficile colitis. Also, we will continue . Job ID: [id number]
[2018-12-09] MEDS: Lidocaine Patch Removal 1 EACH TOP SCH (20:02)
[2018-12-10] MEDS: Mometasone/Formoterol 120 PUFF INHALER INH SCH ×2 (07:04→18:22)
[2018-12-10 07:41] LABS: Anion Gap 12 mmol/L (10-20); BUN (Urea Nitrogen) 18 mg/dL (9.8-20.1); Calc. Creatinine Clearance 17 mL/min (70-130); Carbon Dioxide 24 mmol/L (23-31); Chloride 107 mmol/L (98-107); Estimated GFR-MDRD 11; Glucose 83 mg/dL (80-115); Potassium 3.3 mmol/L (3.5-5.1); Sodium 140 mmol/L (136-145)
[2018-12-10] MEDS: Prenatal Vitamin 1 TAB PO SCH (08:04)
[2018-12-10] MEDS: Rosuvastatin 20 MG TAB PO SCH (08:04)
[2018-12-10] MEDS: Saccharomyces boulardii 250 MG CAP PO SCH ×2 (08:04→19:49)
[2018-12-10] MEDS: Fish Oil 1,000 MG CAP PO SCH (08:04)
[2018-12-10] MEDS: Famotidine/PF 20 mg/2ml Vial SLOW IVP SCH ×2 (08:05→19:49)
[2018-12-10] MEDS: Heparin 5,000 UNITS/ML VIAL SC SCH ×2 (08:05→19:49)
[2018-12-10] MEDS: Carvedilol 25 MG TAB PO SCH ×2 (08:05→19:49)
[2018-12-10] MEDS: Lidocaine 5% Patch TD SCH (08:06)
[2018-12-10] MEDS: Vancomycin HCl 25 MG/ML Oral PO SCH (08:38)
--- NOTE | 2018-12-10 09:42 | PRG ---
DATE OF SERVICE: 12/10/2018 SUBJECTIVE: The patient is seen and examined at the bedside. She still has somewhat watery bowel movements, several per 24 hours, but according to the aide, it is much less than what she used to have. OBJECTIVE: VITAL SIGNS: Blood pressure is 149/68, pulse is 77, temperature is 98.1, maximal temperature is 99.2, respiratory rate is 20, and O2 saturation is 90% to 94% on room air. HEENT: Her pupils are responding to light properly. Sclerae are nonicteric. Oral mucosa is moist. NECK: Supple. LUNGS: Clear. HEART: S1 and S2 normal. No S3. No S4. ABDOMEN: Soft, obese, and nontender. EXTREMITIES: No clubbing, cyanosis, or edema. NEUROLOGICAL: She follows my commands. Moves all 4 extremities. There are no any motor deficits. LABORATORY DATA: Labs showed sodium of 140, potassium 3.3, chloride 107, CO2 of 24, BUN 18, creatinine 4.9, and the rest of chemistry is within normal limits. Microbiology, no new findings. IMPRESSION: 1. Acute kidney injury, acute on chronic. 2. Acute metabolic encephalopathy, improved. 3. Escherichia coli bacteremia. 4. Escherichia coli urinary tract infection. 5. Hypokalemia, resolved and still an issue on and off. We will replace potassium. 6. Hypomagnesemia, resolved. 7. Metabolic acidosis, resolved. 8. Sepsis. 9. Thrombocytopenia. 10. Normocytic normochromic anemia. 11. Type 2 diabetes mellitus, well controlled. 12. Hypertension. 13. Cytomegalovirus infection. 14. Multiple myeloma. PLAN: The patient's transfer was postponed since her kidney function is still in the process of evaluation by Dr. Jackson. Her creatinine is up to 4.9 this morning and by Friday morning, we should be able to know whether she is going to need more dialysis or she can be transferred [facility] for IV meropenem for 2 weeks and continuation of oral vancomycin. Job ID: [id number]
[2018-12-10] MEDS ORDERED: Potassium Chloride 20 MEQ TAB PO SCH (10:00)
[2018-12-10] MEDS: Meropenem 500 MG in Sodium Chloride 0.9% 100 ML IVPB SCH (11:11)
--- NOTE | 2018-12-10 11:13 | PRG ---
DATE OF SERVICE: 12/10/2018 SUBJECTIVE: The patient was seen and examined, noted with the following vital signs. OBJECTIVE: VITAL SIGNS: Afebrile, temperature 98.1, pulse 77, respiratory rate of 20, O2 saturations of 90% to 94%, blood pressure 149/68. HEENT: Unremarkable. CARDIOVASCULAR: First and second heart sounds were heard. RESPIRATORY: Clear to auscultation. DIGESTIVE: Revealed a benign abdomen with positive bowel sounds. EXTREMITIES: No peripheral edema. SKIN: No new gross rash. LYMPHATICS: No peripheral lymphadenopathy. LABORATORY INVESTIGATION: Showed a creatinine that has gone up to 4.9. IMPRESSION: Acute tubular necrosis/acute kidney injury, on hemodialysis. PLAN: 1. The patient was not dialyzed yesterday. We will continue to monitor the patient today. No dialysis today. We will re-evaluate with chemistry tomorrow and make a decision on whether the patient still needs dialysis or not. 2. Further management to be dependent on the clinical course. Avoid potentially nephrotoxic agents. 3. Replete potassium. Job ID: [id number]
--- NOTE | 2018-12-10 11:32 | PRG ---
DATE OF SERVICE: 12/09/2018 SUBJECTIVE: The patient is seen and examined, seems to be doing okay and noted with the following vital signs. OBJECTIVE: VITAL SIGNS: Afebrile, temperature 98.2, pulse 83, respiratory rate of 16, O2 saturation 93% with blood pressure 129/81. HEENT: Unremarkable. CARDIOVASCULAR SYSTEM: First and second heart sounds were heard. RESPIRATORY SYSTEM: Clear to auscultation. DIGESTIVE SYSTEM: Revealed a benign abdomen with positive bowel sounds. EXTREMITIES: No peripheral edema. SKIN: No new gross rash. LYMPHATICS: No peripheral lymphadenopathy. LABORATORY INVESTIGATION: Showed a creatinine of 4.26. IMPRESSION: 1. Acute tubular necrosis, hemodialysis dependent with creatinine of 4.26, status post hemodialysis. 2. Sepsis, improved. PLAN: 1. We will hold the patient's dialysis today being Friday and monitor closely to see what the kidneys can do by themselves vis-a-vis, the possibility of long-term dialysis versus discontinuation of dialysis. Therefore, we will continue to monitor with daily chemistry up until Friday. 2. Further management will be dependent on the clinical course. Please avoid potentially nephrotoxic agents and renally dose all medications. Job ID: [id number]
[2018-12-10] MEDS ORDERED: Sterile Water 10 ML VIAL IVP SCH (13:30)
[2018-12-10] MEDS ORDERED: Activase 2 MG VIAL CATH SCH (13:30)
--- NOTE | 2018-12-10 16:11 | PRG ---
DATE OF SERVICE: 12/10/2018 SUBJECTIVE: Ms. Huggins is feeling well. No more diarrhea. No respiratory symptoms. No abdominal pain. OBJECTIVE: VITAL SIGNS: Temperature has been normal. T-max 99, O2 saturation 90% to 94%. GENERAL: Appears no distress, oriented, follows commands. LUNGS: Symmetric air entry. HEART: S1 and S2, regular rate. ABDOMEN: Soft, not distended or tender. LABORATORY DATA: White cell count 9.2, hemoglobin 7.6, MCV 93, platelets 231, with 90% neutrophils. Sodium 140 and creatinine 4.9. CMV DNA PCR was negative. ASSESSMENT AND DISCUSSION: Myeloma with various infections complications, now with invasive urinary tract infection. The patient has completed treatment for the extended-spectrum beta-lactamases urinary tract infection, and we will go ahead and discontinue Merrem. She will need to continue on Clostridium difficile colitis treatment, which has improved, but she will receive a tapering vancomycin dose over the course of the next month to decrease risk of relapse. Job ID: [id number]
[2018-12-10] MEDS: Potassium Chloride 10 MEQ TAB PO SCH (17:06)
[2018-12-10] MEDS: Lidocaine Patch Removal 1 EACH TOP SCH (19:50)
[2018-12-11 06:21] LABS: Anion Gap 9 mmol/L (10-20); BUN (Urea Nitrogen) 19 mg/dL (9.8-20.1); Calc. Creatinine Clearance 16 mL/min (70-130); Calcium 7.9 mg/dL (7.8-10.44); Carbon Dioxide 25 mmol/L (23-31); Chloride 110 mmol/L (98-107); Estimated GFR-MDRD 10; Glucose 90 mg/dL (80-115); Potassium 3.1 mmol/L (3.5-5.1); Sodium 141 mmol/L (136-145)
[2018-12-11] MEDS ORDERED: Potassium Chloride 20 MEQ TAB PO SCH (08:30)
[2018-12-11] MEDS: Heparin 5,000 UNITS/ML VIAL SC SCH ×2 (09:04→19:59)
[2018-12-11] MEDS: Prenatal Vitamin 1 TAB PO SCH (09:04)
[2018-12-11] MEDS: Rosuvastatin 20 MG TAB PO SCH (09:04)
[2018-12-11] MEDS: Fish Oil 1,000 MG CAP PO SCH (09:04)
[2018-12-11] MEDS: Potassium Chloride 10 MEQ TAB PO SCH ×2 (09:04→19:03)
[2018-12-11] MEDS: Carvedilol 25 MG TAB PO SCH ×2 (09:04→19:59)
[2018-12-11] MEDS: Saccharomyces boulardii 250 MG CAP PO SCH ×2 (09:04→20:00)
[2018-12-11] MEDS: Famotidine/PF 20 mg/2ml Vial SLOW IVP SCH ×2 (09:04→19:59)
[2018-12-11] MEDS: Lidocaine 5% Patch TD SCH (09:06)
[2018-12-11] MEDS: Vancomycin HCl 25 MG/ML Oral PO SCH (09:07)
[2018-12-11] MEDS: Epoetin (ESRD) 20,000 UNITS/ML SC SCH (09:24)
--- NOTE | 2018-12-11 11:56 | PRG ---
DATE OF SERVICE: 12/11/2018 SUBJECTIVE: The patient is seen and examined at the bedside. She is doing quite well. She does not have much complaints to offer. Her appetite is not that great. She complains about the food in the hospital. OBJECTIVE: VITAL SIGNS: Blood pressure is 138/80, pulse is 85, temperature is 98.9, respiratory rate is 18, O2 saturation is 97% on room air. GENERAL: She is not in any distress during my visit. She is resting comfortably in recumbent position. HEENT: Her eyes are PERRLA. Sclerae are nonicteric. Oral mucosa is moist. NECK: Supple. LUNGS: Clear. HEART: S1, S2 normal. No S3. No S4. ABDOMEN: Soft, obese, nontender. Slightly distended. EXTREMITIES: No clubbing or cyanosis. There is 1+ peripheral edema similar bilaterally on both lower extremities. NEUROLOGICAL: She follows my commands. She moves all four extremities. There is no any motor or sensory deficits. Cranial nerves are intact. LABORATORY DATA: Labs showed sodium of 141, potassium 3.1, chloride 110, BUN 19, creatinine 5.20. The rest of chemistry within normal limits. Glycemia is ranging from 85-121. IMPRESSION: 1. Acute kidney injury on chronic. Her creatinine is up to 5.2. Dr. Jackson will make decision about dialysis today. 2. Acute metabolic encephalopathy, improved. 3. Escherichia coli bacteremia and Escherichia coli urinary tract infection, status post meropenem treatment. Yesterday, Dr. Pereira stopped her meropenem and she will continue only on the oral vancomycin to prevent her Clostridium difficile colitis from coming back. 4. Hypokalemia, which is still an issue despite of supplementation. I will give her 40 mEq of potassium this morning instead of 20 what she had yesterday. 5. Hypomagnesemia, resolved. 6. Metabolic acidosis, resolved. 7. Sepsis. 8. Thrombocytopenia. 9. Normocytic normochromic anemia, multifactorial. 10. Type 2 diabetes mellitus, well controlled. 11. Hypertension. 12. History of cytomegalovirus infection. 13. Multiple myeloma. PLAN: As mentioned above, Nephrology is going to make decision about her dialysis. She has a catheter in her right groin. Her meropenem was discontinued yesterday per Dr. Pereira, who address this issue and said the treatment is completed at this point. Also she will stay on the vancomycin orally over the course of the next month to decrease the risk of relapse. Job ID: [id number]
[2018-12-11] MEDS: Mometasone/Formoterol 120 PUFF INHALER INH SCH ×2 (12:09→18:44)
[2018-12-11] MEDS: Epoetin (ESRD) 20,000 UNITS/ML IVP SCH (15:28)
--- NOTE | 2018-12-11 19:24 | PRG ---
DATE OF SERVICE: 12/11/2018 SUBJECTIVE: The patient was seen and examined at dialysis. OBJECTIVE: VITAL SIGNS: Noted with the following vital signs; afebrile, temperature 98.9, pulse 85, respiratory rate of 18, O2 saturations are 94%, with blood pressure of 134/72. HEENT: Unremarkable. Moist oral mucosa. No conjunctival injection or icterus. NECK: Supple. CARDIOVASCULAR: First and second heart sounds were heard. RESPIRATORY: Clear to auscultation. DIGESTIVE: Revealed a benign abdomen with positive bowel sounds. EXTREMITIES: No peripheral edema. SKIN: No new gross rash. LYMPHATICS: No peripheral lymphadenopathy. LABORATORY INVESTIGATION: Showed a creatinine of 5.2, potassium of 3.1. IMPRESSION: 1. Nhdrn-mt-uuzfmht kidney disease, which seems to not have been recovered to the point of coming off dialysis, rather the creatinine is still rising. 2. Mild hypokalemia. 3. Sepsis, resolved. PLAN: 1. The patient's dialysis to be resumed again today. 2. Once tunneled dialysis catheter is secured, the patient will be good for discharge. 3. Outpatient dialysis placement to be coordinated by the caser up. 4. We will hold all blood draws until Friday, which will enable me to re-evaluate the renal function. 5. Further management will be dependent on the clinical course. Job ID: [id number]
[2018-12-11] MEDS: Lidocaine Patch Removal 1 EACH TOP SCH (20:57)
[2018-12-12] MEDS: Mometasone/Formoterol 120 PUFF INHALER INH SCH ×2 (08:19→18:43)
--- NOTE | 2018-12-12 08:48 | PRG ---
DATE OF SERVICE: 12/12/2018 SUBJECTIVE: The patient is seen and examined at the bedside. She is about to get her breathing treatments. This morning, she does not have much complaints to offer. She slept good. Her appetite is fair. OBJECTIVE: VITAL SIGNS: Blood pressure is 138/81, pulse is 90, respiratory rate is 18, temperature is 97.2, maximal temperature is 98.9, and O2 saturation is 93% on room air. HEENT: Her sclerae are nonicteric. Pupils are responding to light properly. Conjunctivae palish. Oral mucosa is moist. NECK: Supple. LUNGS: Clear. HEART: S1, S2 normal. ABDOMEN: Obese, soft, nontender. EXTREMITIES: 1+ peripheral edema on both lower extremities. NEUROLOGICAL EXAMINATION: She is alert and oriented x3. There is no any motor deficits. LABORATORY DATA: Labs showed, glycemia is ranging from 85 to 103. IMPRESSION: 1. Acute on chronic kidney disease. Dr. Jackson to make decision about resuming her dialysis since her creatinine is climbing up. She is going to have catheter placed for dialysis, most likely on Friday, then she can be discharged after outpatient dialysis placement is arranged by complex case manager. 2. Acute metabolic encephalopathy, improved. 3. Escherichia coli bacteremia and Escherichia coli urinary tract infection, status post meropenem treatment, completed. 4. Multiple myeloma. 5. Hypertension. 6. Type 2 diabetes mellitus. 7. Normocytic normochromic anemia. 8. Thrombocytopenia. 9. Sepsis. 10. Metabolic acidosis, resolved. 11. Hypomagnesemia, resolved. 12. Hypokalemia, resolved. 13. Clostridium difficile colitis. Tapering dose of vancomycin over the course of the next month to decrease the relapse of Clostridium difficile. We will continue her current management. She will continue PT and OT. Job ID: [id number]
[2018-12-12] MEDS: Ondansetron PF 4 MG/2 ML Vial IVP PRN (10:04)
[2018-12-12] MEDS: Prenatal Vitamin 1 TAB PO SCH (10:07)
[2018-12-12] MEDS: Fish Oil 1,000 MG CAP PO SCH (10:07)
[2018-12-12] MEDS: Vancomycin HCl 25 MG/ML Oral PO SCH (10:08)
[2018-12-12] MEDS: Famotidine/PF 20 mg/2ml Vial SLOW IVP SCH ×2 (10:08→21:18)
[2018-12-12] MEDS: Saccharomyces boulardii 250 MG CAP PO SCH ×2 (10:08→21:19)
[2018-12-12] MEDS: Heparin 5,000 UNITS/ML VIAL SC SCH ×2 (10:08→21:18)
[2018-12-12] MEDS: Rosuvastatin 20 MG TAB PO SCH (10:08)
[2018-12-12] MEDS: Carvedilol 25 MG TAB PO SCH ×2 (10:09→21:18)
[2018-12-12] MEDS: Lidocaine 5% Patch TD SCH (10:09)
[2018-12-12] MEDS: Lidocaine Patch Removal 1 EACH TOP SCH (21:19)
[2018-12-13] MEDS: Mometasone/Formoterol 120 PUFF INHALER INH SCH ×2 (07:21→18:23)
[2018-12-13] MEDS: Saccharomyces boulardii 250 MG CAP PO SCH ×2 (09:37→19:59)
[2018-12-13] MEDS: Carvedilol 25 MG TAB PO SCH ×2 (09:37→19:58)
[2018-12-13] MEDS: Rosuvastatin 20 MG TAB PO SCH (09:37)
[2018-12-13] MEDS: Famotidine/PF 20 mg/2ml Vial SLOW IVP SCH ×2 (09:37→19:58)
[2018-12-13] MEDS: Prenatal Vitamin 1 TAB PO SCH (09:37)
[2018-12-13] MEDS: Fish Oil 1,000 MG CAP PO SCH (09:37)
[2018-12-13] MEDS: Heparin 5,000 UNITS/ML VIAL SC SCH ×2 (09:37→19:58)
[2018-12-13] MEDS: Lidocaine 5% Patch TD SCH (09:49)
[2018-12-13] MEDS: Vancomycin HCl 25 MG/ML Oral PO SCH (09:49)
[2018-12-13 10:13] LABS: Anion Gap 10 mmol/L (10-20); BUN (Urea Nitrogen) 9 mg/dL (9.8-20.1); Calc. Creatinine Clearance 22 mL/min (70-130); Carbon Dioxide 25 mmol/L (23-31); Chloride 108 mmol/L (98-107); Estimated GFR-MDRD 15; Glucose 95 mg/dL (80-115); Potassium 3.9 mmol/L (3.5-5.1); Sodium 139 mmol/L (136-145)
--- NOTE | 2018-12-13 10:30 | PRG ---
DATE OF SERVICE: 12/13/2018 SUBJECTIVE: The patient is seen and examined at the bedside. She vomited last night. She has vomiting from time to time even at home without any other associated symptoms. No abdominal pain. No diarrhea. She says that the food in the hospital makes her sick from time to time. OBJECTIVE: VITAL SIGNS: Blood pressure is 138/80, pulse is 79, respirations are 18, O2 saturation 95% on room air. Her temperature is 98.7, maximal temperature is 99.1. HEENT: Her head is atraumatic and normocephalic. Eyes are PERRLA. Sclerae are nonicteric. Oral mucosa is moist. NECK: Supple. Obese. LUNGS: Clear. HEART: S1 and S2 normal. No S3. No S4. ABDOMEN: Obese. Bowel sounds are present. No organomegaly. EXTREMITIES: No clubbing, cyanosis, or edema. NEUROLOGICAL: She follows my commands. She moves her all four extremities. LABORATORY DATA: Labs are pending. IMPRESSION: 1. Acute on chronic kidney disease. The patient is waiting for a tunneled catheter to be placed by Dr. Miller tomorrow. He will be consulted by Dr. Jackson. 2. Acute metabolic encephalopathy, improved. 3. Escherichia coli bacteremia and Escherichia coli urinary tract infection, status post meropenem treatment, completed. 4. Multiple myeloma. 5. Hypertension. 6. Type 2 diabetes mellitus, controlled. 7. Normocytic normochromic anemia. 8. Thrombocytopenia. 9. Sepsis. 10. Metabolic acidosis, resolved. 11. Hypomagnesemia, resolved. 12. Hypokalemia, still a problem. She received potassium supplementation. We will check her BMP this morning. 13. Clostridium difficile colitis. She is supposed to be on vancomycin over the course of next month to decrease the relapse of Clostridium difficile. We will continue her PT and OT. Replace her potassium. If it is still low on this morning, then she will have tunneled catheter placed tomorrow by Dr. Miller. Job ID: [id number]
[2018-12-13] MEDS: Lidocaine Patch Removal 1 EACH TOP SCH (20:00)
[2018-12-14] MEDS: Mometasone/Formoterol 120 PUFF INHALER INH SCH ×2 (07:57→18:04)
[2018-12-14 08:48] LABS: Albumin 2.3 g/dL (3.4-4.8); Anion Gap 10 mmol/L (10-20); BUN (Urea Nitrogen) 10 mg/dL (9.8-20.1); BUN/Creatinine Ratio 2.31; Calc. Creatinine Clearance 20 mL/min (70-130); Calcium 8.1 mg/dL (7.8-10.44); Carbon Dioxide 24 mmol/L (23-31); Chloride 109 mmol/L (98-107); Estimated GFR-MDRD 13; Glucose 98 mg/dL (80-115); Phosphorus 4.1 mg/dL (2.3-4.7); Potassium 3.6 mmol/L (3.5-5.1); Sodium 139 mmol/L (136-145)
[2018-12-14] MEDS ORDERED: PHENYLEPHRINE-NS 100 MCG/ML 10 ML SYRINGE ONE (09:27)
[2018-12-14] MEDS ORDERED: PROPOFOL 200 MG/20 ML VIAL ONE (09:27)
[2018-12-14] MEDS: Lidocaine 5% Patch TD SCH (10:24)
[2018-12-14] MEDS: Fish Oil 1,000 MG CAP PO SCH (10:24)
[2018-12-14] MEDS: Famotidine/PF 20 mg/2ml Vial SLOW IVP SCH ×2 (10:24→21:11)
[2018-12-14] MEDS: Carvedilol 25 MG TAB PO SCH ×3 (10:24→22:30)
[2018-12-14] MEDS: Rosuvastatin 20 MG TAB PO SCH (10:25)
[2018-12-14] MEDS: Prenatal Vitamin 1 TAB PO SCH (10:25)
[2018-12-14] MEDS: Heparin 5,000 UNITS/ML VIAL SC SCH ×2 (10:25→21:15)
[2018-12-14] MEDS: Saccharomyces boulardii 250 MG CAP PO SCH ×3 (10:25→22:30)
[2018-12-14] MEDS: Vancomycin HCl 25 MG/ML Oral PO SCH (10:26)
[2018-12-14] MEDS ORDERED: Sodium Chloride 0.9% 30 ML ONE (11:53)
[2018-12-14] MEDS ORDERED: Acetaminophen 500 MG TAB PO PRN (11:53)
[2018-12-14] MEDS ORDERED: Heparin 10,000 UNITS/1 ML VIAL ONE (11:53)
[2018-12-14] MEDS ORDERED: Lidocaine 2% PF 5 ML VIAL ONE (11:53)
[2018-12-14] MEDS ORDERED: traMADol HCl 50 MG TAB PO PRN ×2 (11:53)
[2018-12-14] MEDS ORDERED: Bupivacaine HCl 0.5%/Epinephrine 1:200,000/PF 30 ml Vial ONE (11:53)
[2018-12-14] MEDS ORDERED: Propofol 500 MG/50 ML VIAL ONE (11:56)
[2018-12-14] MEDS ORDERED: Fentanyl 100 MCG/2 ML VIAL ONE (11:56)
[2018-12-14] MEDS ORDERED: Ondansetron HCl/PF 4 MG/2 ML Vial IVP PRN (13:28)
[2018-12-14] MEDS ORDERED: Promethazine HCl 25 MG/ML VIAL IM PRN (13:28)
[2018-12-14] MEDS ORDERED: Promethazine HCl 25 MG/ML VIAL SLOW IVP PRN (13:28)
--- NOTE | 2018-12-14 13:36 | HP ---
HISTORY OF PRESENT ILLNESS: Tsering Huggins is a 63-year-old black female, lives in [place] with her family. The patient is morbidly obese. BMI 37. Height 5 foot 2 inches, 202 pounds, is a nvb-qbtwlco-rtiicewnj diabetic with hypertension with metabolic syndrome and morbid obesity. She has been seen this hospitalization by Dr. aJckson on 11/29/2018 after being admitted 11/25/2018, felt to have acute kidney injury due to sepsis, nonsteroidal anti-inflammatory medications, nephrotoxicity, possibly some contribution to her morbid obesity, diabetes and hypertension. At home she takes Asper-Flex cream, Phenergan p.r.n., Levsin p.r.n., Tylenol p.r.n., Dulera inhaler as needed for asthma, Ventolin HFA inhaler for asthma, losartan daily. The patient denies taken insulin at home, but as reported in her medical records she takes Humalog as directed. She takes gabapentin 600 t.i.d., allopurinol 300 daily, Crestor 20 mg a day, Protonix 40 mg a day, Zofran mg a day, Lasix 25 mg a day. In the hospital she is on Vancocin p.o., p.r.n. nitroglycerin which she has not used, sliding scale insulin, Coreg 25 b.i.d., clonidine, Catapres 0.1 mg p.o. q.4 hours p.r.n., Tessalon p.r.n. The patient has had a PICC line placed in her left arm prior to her renal function deterioration. She has a left groin Trialysis catheter placed to initiate dialysis. When she was admitted, her BUN was 8. Today it is 10. When she was admitted, her creatinine was 0.7, creatinine 4.3 today. She suffered acute kidney injury during this hospitalization with apparent prior normal renal function. As noted above, her PICC line has been removed. This was placed on 11/29/2018 when her creatinine was 3.44. I removed it when I saw her this morning. The patient is independently ambulatory. In addition, this hospitalization she has urine cultures positive for E. coli and 1 of 2 blood cultures positive for E. coli and she has been treated for that effectively with intravenous antibiotics which has been discontinued. On 11/26/2018, she had C. diff stool antigen toxin positive. She has been on p.o. She has been seeing Dr. Pereira. ALLERGIES: LISTED TYLENOL ALTHOUGH SHE TAKES TYLENOL AT HOME, HYDROCODONE, CODEINE, MORPHINE, AND MORE. SOCIAL HISTORY: Tobacco none. Alcohol none. MEDICATIONS: As noted. PAST SURGICAL HISTORY: , left knee surgery, tubal ligation, history of colonoscopy, EGD, umbilical hernia repair. PAST MEDICAL HISTORY: GERD, CKD, C. diff, frequent UTIs, multiple myeloma, currently not on any treatment followed by Dr. Jones, diabetes mellitus type 2, hypertension, chronic bronchitis, asthma, morbid obesity, metabolic syndrome. PHYSICAL EXAMINATION: VITAL SIGNS: Height 5 feet 2 inches, 202 pounds, 37 BMI. LUNGS: Clear to auscultation. CARDIAC: Regular rate and rhythm without murmur or gallop. ABDOMEN: Soft, obese, nontender. EXTREMITIES: Unremarkable. Palpable radial pulses bilaterally. PICC line left arm removed immediately upon me seeing her. The patient has a bandage over her right foot and has a burn on the medial foot with healthy granulation tissue. Last time this dressing was changed was 12/08/2018. There is healthy granulation tissue. No evidence of infection. ASSESSMENT/PLAN: 1. Acute renal failure in need of dialysis access. We will plan hemodialysis catheter placement as well as central line to facilitate her treatment with hospitalization. I will discuss with Dr. Jackson whether she needs future dialysis access for long-term dialysis. It is hoped that her renal function may improve, but we will obtain ultrasound vein mapping in case she needs it in the future and may hold off to see if her kidneys improve with time such that she does not need to be on long-term dialysis. In the meantime, avoid IV access and blood draws above her wrist, avoid peripherally inserted central catheter lines. Avoid subclavian lines. 2. Morbid obesity. 3. Metabolic syndrome. 4. Hypertension. 5. Diabetes mellitus. 6. Escherichia coli sepsis. 7. Escherichia coli urinary tract infection. 8. Asthma. Job ID: [id number]
--- NOTE | 2018-12-14 13:49 | OP ---
DATE OF PROCEDURE: 12/14/2018 PREOPERATIVE DIAGNOSES: Acute renal failure, morbid obesity, metabolic syndrome, diabetes, hypertension, PICC line in left upper arm removed on my consultation this morning. POSTOPERATIVE DIAGNOSES: Acute renal failure, morbid obesity, metabolic syndrome, diabetes, hypertension, PICC line in left upper arm removed on my consultation this morning. PROCEDURES PERFORMED: Right IJ cuffed tunneled hemodialysis catheter. Left IJ central line, ultrasound and fluoroscopy used. ANESTHESIA: Intravenous sedation with local 0.5% Marcaine with epinephrine 30 mL mixed with 2% Xylocaine 10 mL. DESCRIPTION OF PROCEDURE: The patient was taken to the operating room, where under intravenous sedation, neck and chest were prepared with ChloraPrep and draped in routine fashion. Local anesthetic mixture was infiltrated into the skin and subcutaneous tissue about each port site, about the incisions, and operative sites. Ultrasound guidance was used to cannulate both the right and left internal jugular veins using the trocar catheter, inserted J-wire, removed the trocar catheter, this was enlarged at the skin entrance site sharply on both sides. Right chest stab incision was made for the planned exit site of the hemodialysis catheter. Using Seldinger technique, a left-IJ triple-lumen catheter was placed and secured with 3-0 nylon suture. Each port aspirated blood and flushed with saline solution. To accomplish proper placement of the catheter, fluoroscopy was necessary. This catheter initially was located in the left subclavian vein and then the right subclavian vein, but using a J-wire technique, directed into the SVC. Once the catheter was secured and sterile dressings applied, each port aspirated blood and flushed with saline solution. Using the tunneling device, the pre-curved [employer] cuffed-tunneled hemodialysis catheter tunneled between 2 incisions, placed the fabric cuff beneath the skin exit site on the right chest. Catheter was secured with 2 interrupted suture of 3-0 nylon. Sterile dressing applied. Small and medium size dilators were placed with J-wire into the internal jugular vein right and removed. Dilator and Peel-Away sheath placed with J-wire in superior vena cava and J-wire and dilator removed. Catheter placed through the Peel-Away sheath. Peel-Away sheath removed. Platysma was approximated with 4-0 Monocryl, skin with subdermal 4-0 Monocryl, and [place] glue applied. Sterile dressings applied. Each port aspirated blood, flushed with saline solution and heparinized saline solution with 1000 units of heparin per mL indicating the volume of the port. Job ID: [id number]
--- NOTE | 2018-12-14 15:36 | RAD ---
CHEST 1 VIEW: Date: 12/14/18 COMPARISON: 11/26/18. HISTORY: Status post central line placement. FINDINGS: There appears to be a right-sided HemoSplit dialysis catheter and a left-sided internal jugular centr al venous catheter. Both catheters appear to terminate in the region of the superior vena cava and ri ght atrium, respectively. There is no pneumothorax. Normal cardiac silhouette. No pleural effusion. IMPRESSION: No pneumothorax. Lines as above. POS: [facility]
[2018-12-14 17:23] LABS: Anisocytosis SLIGHT = 6-15 cells (100X) (0-5/hpf); Band 1 % (5-11); Eosinophils 2 % (0-10); Hemoglobin 8.2 g/dL (12.0-16.0); Hypochromia SLIGHT = 6-15 cells (100X) (0-5/hpf); Lymphocytes 14 % (21-51); MDiff Complete? YES; Mean Corpuscular HGB CONC 30.6 g/dL (32.0-36.0); Mean Corpuscular Volume 91.6 fL (78.0-98.0); Monocytes 13 % (0-10); Neutrophil 70 % (42-75); Platelet Count 213 thou/uL (130-400); Platelet Morphology Comment Appears Adequate; Polychromasia SLIGHT = 2-3 cells (100X) (0-2/hpf); RBC Distribution Width 16.3 % (11.5-14.5); Red Blood Cell (RBC) Count 2.93 mill/uL (4.20-5.40); Tear Drops SLIGHT = 2-5 cells (100X) (0-1/hpf)
[2018-12-14] MEDS: Epoetin (ESRD) 20,000 UNITS/ML IVP SCH (17:50)
--- NOTE | 2018-12-14 18:12 | PRG ---
DATE OF SERVICE: 12/14/2018 SUBJECTIVE: The patient is complaining of some neck pain following her tunneled catheter and triple-lumen placement. OBJECTIVE: VITAL SIGNS: Temperature 98.5, pulse 85, respirations 20, O2 saturation 98% on room air, BP 160/85. GENERAL APPEARANCE: Age-appropriate female, in no distress. She is awake, pleasant, cooperative. HEART: Regular without murmurs. LUNGS: Clear bilaterally. ABDOMEN: Soft, nontender, and nondistended. EXTREMITIES: Reveal some generalized atrophy. Wound dressing in place on her ankle. LABORATORY DATA: White count 8.0, hemoglobin 7.2, platelets 16.3. Sodium 139, potassium 3.6, chloride 109, CO2 is 24, BUN 10, creatinine 4.33, glucose 94-101. IMPRESSION AND PLAN: 1. Acute on chronic kidney disease. She has a tunneled dialysis catheter in place now. She has an outpatient dialysis bed and can be discharged from the standpoint of Nephrology. The patient is receiving dialysis this evening. As it is going to run late in the day, we will anticipate discharge first thing in the morning. 2. Acute metabolic encephalopathy, resolved. 3. Escherichia coli urinary tract infection with bacteremia status post full treatment with meropenem. 4. Multiple myeloma. 5. Hypertension. 6. Diabetes. 7. Chronic normocytic normochromic anemia secondary to chronic kidney disease. 8. Thrombocytopenia, stable. 9. Sepsis, resolved. 10. Hypokalemia, improved. 11. Clostridium difficile colitis. The patient will continue to receive p.o. vancomycin with long-term taper per Dr. Pereira. Job ID: [id number]
--- NOTE | 2018-12-14 19:51 | PRG ---
DATE OF SERVICE: 12/14/2018 SUBJECTIVE: Patient is seen and examined with no new complaint noted with the following vital signs. OBJECTIVE: VITAL SIGNS: Afebrile, temperature 98.5, pulse 85, respiratory rate of 20, O2 saturation of 98% with blood pressure 131/78. HEENT: Unremarkable. CARDIOVASCULAR SYSTEM: First and second heart sounds were heard. RESPIRATORY SYSTEM: Clear to auscultation. DIGESTIVE SYSTEM: Revealed a benign abdomen with positive bowel sounds. EXTREMITIES: No peripheral edema. SKIN: No new gross rash. LYMPHATICS: No peripheral lymphadenopathy. LABORATORY INVESTIGATION: Showed a hemoglobin of 8.2. Chemistry showed a creatinine of 4.33. IMPRESSION: 1. Acute on chronic kidney disease culminating into almost end-stage renal disease. 2. Anemia of chronic illness and kidney disease and iron deficiency. PLAN: 1. The patient has secured tunneled dialysis catheter. Therefore, patient is ready for outpatient dialysis treatment pending when renal function recovers to the point of coming off dialysis. 2. Renally dose all medications. 3. Avoid potentially nephrotoxic agents as I see would hope for possible renal recovery to the point of coming off dialysis. 4. The patient to continue with erythropoietin stimulating agents. From the renal standpoint, the patient is good for discharge. railway station manager informed me that outpatient dialysis facility has been arranged. Job ID: [id number]
[2018-12-14] MEDS: Lidocaine Patch Removal 1 EACH TOP SCH (21:14)
[2018-12-15] MEDS: Mometasone/Formoterol 120 PUFF INHALER INH SCH ×2 (07:57→18:41)
[2018-12-15] MEDS: Vancomycin HCl 25 MG/ML Oral PO SCH (08:42)
[2018-12-15] MEDS: Lidocaine 5% Patch TD SCH (08:42)
[2018-12-15] MEDS: Famotidine/PF 20 mg/2ml Vial SLOW IVP SCH ×2 (08:43→20:50)
[2018-12-15] MEDS: Carvedilol 25 MG TAB PO SCH ×2 (08:43→20:50)
[2018-12-15] MEDS: Rosuvastatin 20 MG TAB PO SCH (08:43)
[2018-12-15] MEDS: Heparin 5,000 UNITS/ML VIAL SC SCH ×2 (08:43→20:50)
[2018-12-15] MEDS: Saccharomyces boulardii 250 MG CAP PO SCH ×2 (08:44→20:50)
[2018-12-15] MEDS: Fish Oil 1,000 MG CAP PO SCH (08:44)
[2018-12-15] MEDS: Prenatal Vitamin 1 TAB PO SCH (08:44)
--- NOTE | 2018-12-15 09:24 | ULT ---
PREDIALYSIS ACCESS DUPLEX EXAMINATION: INDICATION: End stage renal disease. TECHNIQUE: Predialysis access duplex examination was performed evaluating the brachial arteries, radial arteries , ulnar arteries, cephalic, and basilic veins bilaterally. Right internal jugular vein, right subcla vian, and right axillary vein were unable to be imaged due to patient guarding and patient's refusal to image this region. There is also banding within the region of the left IJ that limited the exam. Right Brachial 3.3 mm Right Radial 1.5 mm Right Ulnar 2.0 mm RIGHT CEPHALIC VEIN: Proximal humerus 1.9 mm Mid humerus 1.6 mm Distal 1.9 mm Elbow 2.6 mm Proximal forearm 0.9 mm Mid 1.0 mm Distal 0.8 mm RIGHT BASILIC VEIN: Proximal humerus 4.1 mm Mid humerus 2.8 mm Distal 2.2 mm Elbow 2.0 mm Proximal forearm 2.3 mm Mid 2.2 mm Distal 1.3 mm Left Brachial 2.4 mm Left Radial 1.3 mm Left Ulnar 1.1 mm LEFT CEPHALIC VEIN: Proximal humerus 2.2 mm Mid humerus 1.9 mm Distal 1.5 mm Elbow 2.5 mm Proximal forearm 1.3 mm Mid 0.9 mm Distal 0.9 mm RIGHT BASILIC VEIN: Proximal humerus 4.3 mm Mid humerus 3.2 mm Distal 2.6 mm Elbow 3.1 mm Proximal forearm 2.0 mm Mid 1.5 mm Distal 1.3 mm IMPRESSION: Predialysis access duplex examination measurements as above. POS: [facility]
[2018-12-15] MEDS: Ondansetron PF 4 MG/2 ML Vial IVP PRN ×2 (11:29→20:57)
[2018-12-15 13:39] VITALS: BMI 37.0
[2018-12-15 18:17] LABS: Anion Gap 7 mmol/L (10-20); BUN (Urea Nitrogen) 11 mg/dL (9.8-20.1); Calc. Creatinine Clearance 22 mL/min (70-130); Calcium 8.3 mg/dL (7.8-10.44); Carbon Dioxide 28 mmol/L (23-31); Chloride 105 mmol/L (98-107); Estimated GFR-MDRD 14; Glucose 86 mg/dL (80-115); Potassium 3.5 mmol/L (3.5-5.1); Sodium 136 mmol/L (136-145)
--- NOTE | 2018-12-15 19:35 | PRG ---
DATE OF SERVICE: 12/15/2018 SUBJECTIVE: She was seen and examined with no new complaint. Noted with the following vital signs. OBJECTIVE: VITAL SIGNS: Afebrile, temperature 98.2, pulse 72, respiratory rate of 20, O2 saturations are 98%, and blood pressure 129/73. HEENT: Unremarkable. CARDIOVASCULAR SYSTEM: First and second heart sounds were heard. RESPIRATORY SYSTEM: Clear to auscultation. DIGESTIVE SYSTEM: Revealed a benign abdomen with positive bowel sounds. EXTREMITIES: No peripheral edema. SKIN: No new gross rash. LYMPHATICS: No peripheral lymphadenopathy. IMPRESSION: 1. End-stage renal disease, on hemodialysis. 2. Anemia. PLAN: 1. The patient likely to be discharged today to continue with outpatient dialysis treatment. 2. We will continue to monitor the patient's renal function with really possibility of recovery to the point of not requiring dialysis. 3. Avoid potentially nephrotoxic agents. Job ID: [id number]
[2018-12-15] MEDS: Lidocaine Patch Removal 1 EACH TOP SCH (20:50)
[2018-12-16] MEDS: Mometasone/Formoterol 120 PUFF INHALER INH SCH (06:44)
[2018-12-16 07:36] VITALS: BP 135/76; TEMP 99
[2018-12-16 07:36] LABS: Anion Gap 10 mmol/L (10-20); BUN (Urea Nitrogen) 13 mg/dL (9.8-20.1); Calc. Creatinine Clearance 20 mL/min (70-130); Calcium 8.5 mg/dL (7.8-10.44); Carbon Dioxide 24 mmol/L (23-31); Chloride 107 mmol/L (98-107); Estimated GFR-MDRD 13; Glucose 80 mg/dL (80-115); Potassium 3.2 mmol/L (3.5-5.1); Sodium 138 mmol/L (136-145)
[2018-12-16] MEDS: Heparin 5,000 UNITS/ML VIAL SC SCH (08:00)
[2018-12-16] MEDS: Carvedilol 25 MG TAB PO SCH (08:01)
[2018-12-16] MEDS: Saccharomyces boulardii 250 MG CAP PO SCH (08:01)
[2018-12-16] MEDS: Lidocaine 5% Patch TD SCH (08:01)
[2018-12-16] MEDS: Rosuvastatin 20 MG TAB PO SCH (08:01)
[2018-12-16] MEDS: Fish Oil 1,000 MG CAP PO SCH (08:01)
[2018-12-16] MEDS: Famotidine/PF 20 mg/2ml Vial SLOW IVP SCH (08:01)
[2018-12-16] MEDS: Prenatal Vitamin 1 TAB PO SCH (08:01)
[2018-12-16] MEDS: Vancomycin HCl 25 MG/ML Oral PO SCH (08:11)
[2018-12-16] MEDS ORDERED: Heparin 10,000 UNITS/ 10 ML VIAL ONE (11:00)
[2018-12-16] MEDS: Epoetin (ESRD) 20,000 UNITS/ML IVP SCH (17:30)
== END 2018-12-16 17:58 | DRG 871 ==
LOC: ERS 10:48 → 2NO 14:08 → T4-A 12-06 18:40
PROVIDERS: ADMIT Internal Medicine; ATTEND Internal Medicine
PROC: 05HM33Z Insertion of Infusion Device into Right Internal Jugular Vein, Percutaneous Approach (ICD-10-PCS; 2018-11-26)
PROC: B543ZZA Ultrasonography of Right Jugular Veins, Guidance (ICD-10-PCS; 2018-11-26)
PROC: 02HV33Z Insertion of Infusion Device into Superior Vena Cava, Percutaneous Approach (ICD-10-PCS; 2018-11-29)
PROC: B548ZZA Ultrasonography of Superior Vena Cava, Guidance (ICD-10-PCS; 2018-11-29)
PROC: 06HM33Z Insertion of Infusion Device into Right Femoral Vein, Percutaneous Approach (ICD-10-PCS; 2018-12-01)
PROC: B54BZZA Ultrasonography of Right Lower Extremity Veins, Guidance (ICD-10-PCS; 2018-12-01)
PROC: 5A1D70Z Performance of Urinary Filtration, Intermittent, Less than 6 Hours Per Day (ICD-10-PCS; 2018-12-04)
PROC: 0JH63XZ Insertion of Tunneled Vascular Access Device into Chest Subcutaneous Tissue and Fascia, Percutaneous Approach (ICD-10-PCS; principal; 2018-12-14)
PROC: 02HV33Z Insertion of Infusion Device into Superior Vena Cava, Percutaneous Approach (ICD-10-PCS; 2018-12-14)
PROC: B548ZZA Ultrasonography of Superior Vena Cava, Guidance (ICD-10-PCS; 2018-12-14)
PROC: 05HN33Z Insertion of Infusion Device into Left Internal Jugular Vein, Percutaneous Approach (ICD-10-PCS; 2018-12-14)
PROC: B544ZZA Ultrasonography of Left Jugular Veins, Guidance (ICD-10-PCS; 2018-12-14)
DX: A41.51 Sepsis due to Escherichia coli [E. coli] (principal); G93.41 Metabolic encephalopathy; N17.0 Acute kidney failure with tubular necrosis; N39.0 Urinary tract infection, site not specified; C90.00 Multiple myeloma not having achieved remission; A04.72 Enterocolitis due to Clostridium difficile, not specified as recurrent; B25.9 Cytomegaloviral disease, unspecified; E66.01 Morbid (severe) obesity due to excess calories; Z68.37 Body mass index [BMI] 37.0-37.9, adult; E88.81 Metabolic syndrome and other insulin resistance; K21.9 Gastro-esophageal reflux disease without esophagitis; E11.22 Type 2 diabetes mellitus with diabetic chronic kidney disease; I12.9 Hypertensive chronic kidney disease with stage 1 through stage 4 chronic kidney disease, or unspecified chronic kidney disease; J42 Unspecified chronic bronchitis; N18.3 Chronic kidney disease, stage 3 (moderate); M10.9 Gout, unspecified; L89.152 Pressure ulcer of sacral region, stage 2; E87.6 Hypokalemia; E83.42 Hypomagnesemia; D63.1 Anemia in chronic kidney disease; D50.9 Iron deficiency anemia, unspecified; D69.6 Thrombocytopenia, unspecified; B00.9 Herpesviral infection, unspecified; J10.1 Influenza due to other identified influenza virus with other respiratory manifestations; R65.20 Severe sepsis without septic shock; E83.39 Other disorders of phosphorus metabolism; E11.649 Type 2 diabetes mellitus with hypoglycemia without coma; J20.9 Acute bronchitis, unspecified; Z88.6 Allergy status to analgesic agent; Z88.5 Allergy status to narcotic agent; Z88.2 Allergy status to sulfonamides
CPT/HCPCS: 36415; 36416; 36430; 36569; 51701; 70450; 71045; 74176; 76770; 80048; 80053; 80069; 80202; 81001; 81003; 81015; 82140; 83605; 83735; 85007; 85025; 85027; 86704; 86706; 86803; 86850; 86900; 86901; 87040; 87077; 87086; 87149; 87186; 87324; 87340; 87449; 87497; 87804; 89190; 90935; 93005; 93970; 94664; 96361; 96365; 96366; 96375; 99283; A4353; C1751; C1752; C1769; G0257; G0365; J0670; J1644; J2001; J2185; J2405; J2543; J2597; J2704; J2997; J3010; J3370; J3475; J3480; J7042; J7050; J7070; P9016; Q4081; S0028

== ENCOUNTER 2018-12-18 06:55 | Inpatient (IN) | payer MEDICARE, MEDICAID ==
--- NOTE | 2018-12-18 08:20 | RAD ---
SINGLE VIEW CHEST: HISTORY: Low blood pressure. COMPARISON: 12/14/2018 FINDINGS: A single view of the chest shows a normal sized cardiomediastinal silhouette. There is a dialysis ca theter with its tip in the superior vena cava. There is no evidence of consolidation, mass, or pleur al effusion. IMPRESSION: No evidence of acute cardiopulmonary disease. POS: [facility]
[2018-12-18 09:05] LABS: Hemoglobin 8.4 g/dL (12.0-16.0); Mean Corpuscular HGB CONC 29.8 g/dL (32.0-36.0); Mean Corpuscular Hemoglobin 26.9 pg (27.0-31.0); Mean Corpuscular Volume 90.3 fL (78.0-98.0); Mean Platelet Volume 10.9 fL (7.4-10.4); Platelet Count 165 thou/uL (130-400); RBC Distribution Width 17.3 % (11.5-14.5); Red Blood Cell (RBC) Count 3.11 mill/uL (4.20-5.40); White Blood Cell (WBC) Count 10.4 thou/uL (4.8-10.8)
[2018-12-18 09:15] LABS: ALT (SGPT) 35 U/L (8-55); AST (SGOT) 65 U/L (5-34); Albumin 2.3 g/dL (3.4-4.8); Alkaline Phosphatase 112 U/L (40-150); Anion Gap 9 mmol/L (10-20); BUN (Urea Nitrogen) 19 mg/dL (9.8-20.1); Bilirubin, Total 0.4 mg/dL (0.2-1.2); Calc. Creatinine Clearance 0 mL/min (70-130); Calcium 8.4 mg/dL (7.8-10.44); Carbon Dioxide 24 mmol/L (23-31); Chloride 101 mmol/L (98-107); Estimated GFR-MDRD 9; Globulin 8.3 g/dL (2.4-3.5); Glucose 103 mg/dL (80-115); Lipase 80 U/L (8-78); Potassium 3.5 mmol/L (3.5-5.1); Protein, Total 10.6 g/dL (6.0-8.3); Sodium 130 mmol/L (136-145)
[2018-12-18 09:37] LABS: CKMB 0.6 ng/mL (0-6.6)
[2018-12-18 09:54] LABS: Band 3 % (5-11); Eosinophils 4 % (0-10); Hypochromia SLIGHT = 6-15 cells (100X) (0-5/hpf); Lymphocytes 15 % (21-51); MDiff Complete? YES; Monocytes 12 % (0-10); Neutrophil 65 % (42-75); Platelet Morphology Comment Appears Adequate; Polychromasia SLIGHT = 2-3 cells (100X) (0-2/hpf); Reactive Lymphocytes 1 % (0-10); Reflex for Review?? YES; Rouleaux Formation MODERATE= 6-15 cells (100X) (None Seen)
[2018-12-18 12:03] LABS: Bilirubin Small (Negative); Blood, Urine Small (Negative); Clarity TURBID (Clear); Glucose, Urine (Dipstick) Negative (Negative); Leukocyte Large (Negative); Nitrite Negative (Negative); Protein, Urine (Dipstick) 100 mg/dL (Neg-Trace); Specific Gravity, Urine 1.022 (1.002-1.036); Urobilinogen 0.2 mg/dL (0.2-1.0)
[2018-12-18 12:05] LABS: Bacteria/HPF 3+ HPF (None Seen); RBC/HPF 0-3 HPF (0-3); Yeast-AUWi Flag 22.2 (0-25.0)
[2018-12-18 12:08] LABS: Pathc Cast-AUWi Flag 6.95 (0-2.49)
[2018-12-18 12:18] LABS: Hyaline Casts/LPF 0-3 HYALINE CAST LPF (0-3 Hyaline); Transitional Epithelial 0-3 HPF (0-3); WBC/HPF 21-50 HPF (0-3)
[2018-12-18] MEDS ORDERED: MEROPENEM 1 GM/50 ML 1 GM in Premix Bag 1 BAG IVPB ONE (13:00)
[2018-12-18] MEDS ORDERED: Loratadine 5 MG/5 ML UDCUP PO PRN (14:33)
[2018-12-18] MEDS ORDERED: Dextrose 5% in Water 1,000 ML IV PRN (14:34)
[2018-12-18] MEDS ORDERED: Insulin Regular 300 UNITS/3 ML VIAL SC PRN (14:34)
[2018-12-18] MEDS ORDERED: Dextrose 50% Abboject 50 ML SYRINGE SLOW IVP PRN (14:34)
[2018-12-18] MEDS ORDERED: HumaLOG 300 UNITS/3 ML VIAL SC PRN (14:34)
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
[2018-12-18] MEDS: Carvedilol 6.25 MG TAB PO SCH (17:24)
[2018-12-18] MEDS: Vancomycin HCl 25 MG/ML Oral PO SCH ×2 (17:25→22:50)
[2018-12-18] MEDS ORDERED: Sodium Chloride 0.9% 100 ML ONE (17:26)
[2018-12-18] MEDS ORDERED: cefTRIAXone\\ROCEPHIN 1 GM VIAL ONE (17:26)
[2018-12-18] MEDS: cefTRIAXone\\ROCEPHIN 1 GM in Sodium Chloride 0.9% 100 ML IVPB SCH (17:33)
[2018-12-18] MEDS ORDERED: Epoetin (ESRD) 20,000 UNITS/ML IVP SCH (19:30)
[2018-12-18] MEDS ORDERED: cefTRIAXone\\ROCEPHIN 1 GM in Sodium Chloride 0.9% 100 ML IVPB SCH (21:00)
[2018-12-18] MEDS: Rosuvastatin 20 MG TAB PO SCH (22:48)
[2018-12-18] MEDS: Gabapentin 300 MG CAP PO SCH (22:50)
[2018-12-19 01:28] VITALS: BMI 32.0
[2018-12-19 08:22] LABS: Anion Gap 12 mmol/L (10-20); BUN (Urea Nitrogen) 22 mg/dL (9.8-20.1); Calc. Creatinine Clearance 12 mL/min (70-130); Calcium 7.7 mg/dL (7.8-10.44); Carbon Dioxide 18 mmol/L (23-31); Chloride 108 mmol/L (98-107); Estimated GFR-MDRD 9; Glucose 97 mg/dL (80-115); Potassium 4.6 mmol/L (3.5-5.1); Sodium 133 mmol/L (136-145)
[2018-12-19] MEDS: Saccharomyces boulardii 250 MG CAP PO SCH (08:34)
[2018-12-19] MEDS: Gabapentin 300 MG CAP PO SCH ×2 (08:34→22:33)
[2018-12-19] MEDS: Allopurinol 300 MG TAB PO SCH (08:34)
[2018-12-19] MEDS: Carvedilol 6.25 MG TAB PO SCH ×2 (08:35→16:13)
[2018-12-19 09:32] LABS: Hemoglobin 7.6 g/dL (12.0-16.0); Mean Corpuscular HGB CONC 30.6 g/dL (32.0-36.0); Mean Corpuscular Hemoglobin 27.6 pg (27.0-31.0); Mean Corpuscular Volume 90.3 fL (78.0-98.0); Mean Platelet Volume 10.8 fL (7.4-10.4); Platelet Count 147 thou/uL (130-400); RBC Distribution Width 17.3 % (11.5-14.5); Red Blood Cell (RBC) Count 2.74 mill/uL (4.20-5.40); White Blood Cell (WBC) Count 10.3 thou/uL (4.8-10.8)
[2018-12-19] MEDS: Vancomycin HCl 25 MG/ML Oral PO SCH ×4 (09:55→22:34)
[2018-12-19 10:53] LABS: Anisocytosis SLIGHT = 6-15 cells (100X) (0-5/hpf); Eosinophils 2 % (0-10); Hypochromia MODERATE=16-30 cells (100X) (0-5/hpf); Lymphocytes 16 % (21-51); MDiff Complete? YES; Microcytosis SLIGHT = 6-15 cells (100X) (0-5/hpf); Monocytes 19 % (0-10); Neutrophil 59 % (42-75); Polychromasia SLIGHT = 2-3 cells (100X) (0-2/hpf); Reactive Lymphocytes 4 % (0-10); Rouleaux Formation SLIGHT = 1-5 cells (100X) (None Seen)
[2018-12-19] MEDS: Acetaminophen 325 MG TAB PO PRN (11:18)
[2018-12-19] MEDS ORDERED: Sodium Chloride 0.9% 500 ML IV SCH (12:15)
--- NOTE | 2018-12-19 12:25 | PRG ---
DATE OF SERVICE: 12/19/2018 SUBJECTIVE: The patient says she feels fine. She has no complaints today. She does not continue to have significant number of diarrheal stools. She does report that she has some jerking in her hands from time to time. LABORATORY DATA: White count is 10.3, hemoglobin 7.6, and platelets 147. Sodium 133, potassium 4.6, CO2 is 18, BUN 22, creatinine 5.98, and glucose 97. Micro is pending. IMPRESSION AND PLAN: 1. Hypotension, likely combination of persistent medications, uses antihypertensives and ARB for nephroprotective effect after the patient was already begun on dialysis. ARB has been discontinued and her Lasix has been discontinued. She received 2 L of fluid in the ER yesterday and her pressure improved. She is still borderline hypotensive today with systolic in the low 90s. I am going to go ahead and give her another 500 mL bolus today and continue to hold the ARB and Lasix. Her Coreg has also been decreased by half. We will try to maintain that as best we can. 2. Possible urinary tract infection, equivocal evidence. She is still on antibiotics. Still waiting on micro. 3. Chronic kidney disease, presently to the extent that she has required recent addition of dialysis with hopes that she is going to actually have some improvement and not require long-term dialysis, Nephrology following. 4. Chronic anemia of kidney disease. She is near her baseline. No indication for dialysis. 5. History of multiple myeloma, stable. 6. Hypertension as above. Medications have been changed to accommodate the hypotension. 7. Clostridium difficile colitis. Continue the patient on her oral vancomycin regimen. 8. History of chronic obstructive pulmonary disease, resuming home medications, appears to be stable and well compensated. 9. History of diastolic dysfunction. She is typically on Coreg and Lasix. Coreg dose has been decreased and Lasix has been held in light of her hypotension, appears to be well compensated. 10. Disposition. Hoping the patient's pressure will remain stable and that the additional boluses may be helpful if that remains okay, she should be able to be [email or web address] tomorrow. Job ID: [id number]
[2018-12-19] MEDS: cefTRIAXone\\ROCEPHIN 1 GM in Sodium Chloride 0.9% 100 ML IVPB SCH (16:13)
--- NOTE | 2018-12-19 21:27 | PRG ---
DATE OF SERVICE: 12/19/2018 SUBJECTIVE: The patient was seen and examined with the following complaint, at dialysis the patient started bleeding around the catheter site. Otherwise, the patient noted to be hemodynamically stable. OBJECTIVE: HEENT: Unremarkable. CARDIOVASCULAR SYSTEM: First and second heart sounds were heard. RESPIRATORY SYSTEM: Clear to auscultation. DIGESTIVE SYSTEM: Revealed a benign abdomen with positive bowel sounds. EXTREMITIES: No peripheral edema. SKIN: No new gross rash. LYMPHATICS: No peripheral lymphadenopathy. IMPRESSION: 1. Acute on chronic kidney disease to the point of hemodialysis. 2. Hypotension likely in the context of antihypertensive medications. 3. Clostridium difficile colitis on treatment. PLAN: 1. We will contact the patient's access surgeon to evaluate the catheter before being used, therefore we will with dialysis at this point pending establishment of access. 2. Renally dose all medications. 3. Continue erythropoiesis stimulating agents. 4. Further management will be dependent on the clinical course. Job ID: [id number]
[2018-12-19] MEDS: Rosuvastatin 20 MG TAB PO SCH (22:33)
[2018-12-20 05:55] LABS: Anion Gap 11 mmol/L (10-20); BUN (Urea Nitrogen) 26 mg/dL (9.8-20.1); Calc. Creatinine Clearance 12 mL/min (70-130); Calcium 7.5 mg/dL (7.8-10.44); Carbon Dioxide 20 mmol/L (23-31); Chloride 109 mmol/L (98-107); Estimated GFR-MDRD 9; Glucose 103 mg/dL (80-115); Potassium 3.5 mmol/L (3.5-5.1); Sodium 136 mmol/L (136-145)
[2018-12-20 06:17] LABS: Band 8 % (5-11); Eosinophils 3 % (0-10); Hemoglobin 7.4 g/dL (12.0-16.0); Lymphocytes 13 % (21-51); MDiff Complete? YES; Mean Corpuscular HGB CONC 31.6 g/dL (32.0-36.0); Mean Corpuscular Volume 88.7 fL (78.0-98.0); Monocytes 16 % (0-10); Neutrophil 60 % (42-75); Platelet Count 132 thou/uL (130-400); Platelet Morphology Comment Appears Decreased; RBC Distribution Width 17.3 % (11.5-14.5); RBC Morphology Normal; Red Blood Cell (RBC) Count 2.63 mill/uL (4.20-5.40)
[2018-12-20] MEDS: Acetaminophen 325 MG TAB PO PRN ×3 (06:23→23:09)
[2018-12-20] MEDS: Saccharomyces boulardii 250 MG CAP PO SCH ×2 (08:21→21:31)
[2018-12-20] MEDS: Allopurinol 300 MG TAB PO SCH (08:21)
[2018-12-20] MEDS: Carvedilol 6.25 MG TAB PO SCH ×2 (08:21→16:38)
[2018-12-20] MEDS: Gabapentin 300 MG CAP PO SCH ×3 (08:21→21:30)
[2018-12-20] MEDS: Vancomycin HCl 25 MG/ML Oral PO SCH ×4 (08:22→21:32)
--- NOTE | 2018-12-20 11:51 | PDOC.PN ---
- Subjective Encounter Start Date: 12/20/18 Encounter Start Time: 11:30 Subjective: f/u for c. diff colitis on po Vanc and stool normalizing. Tx for UTI -: with Rocephin but Ucx still pending. Low-grade temps noted per nursing - Objective Resuscitation Status - Order Detail: 12/18/18 14:16 Resuscitation Status Routine Resuscitation Status: FULL: Full Resuscitation Discussed with: patient MAR Reviewed: Yes Vital Signs & Weight: Vital Signs (12 hours) Temp Pulse Resp BP Pulse Ox 12/20/18 07:07 99.9 F H 118 H 18 121/55 L 99 12/20/18 04:00 99.6 F 110 H 14 115/70 98 12/20/18 00:00 99.7 F H 103 H 17 111/51 L 99 Weight Admit Weight 175 lb Weight 175 lb I&O: 12/19/18 12/20/18 12/21/18 06:59 06:59 06:59 Intake Total 160 1300 960 Output Total 400 Balance -240 1300 960 Result Diagrams: 12/20/18 04:52 12/20/18 04:51 Additional Labs: Accuchecks 12/20/18 12/20/18 12/19/18 10:59 05:30 20:23 POC Glucose 133 H 102 116 H 12/19/18 17:01 POC Glucose 111 H Microbiology 12/20/18 09:36 Stool C. difficile GDH Antigen & Toxins - Final 11/26/18 19:00 Stool C. difficile GDH Antigen & Toxins - Final 11/25/18 12:21 Nasopharyngeal swab Influenza Types A,B Direct EIA - Final 11/25/18 12:13 Urine Straight Catheter Urine Culture - Final Escherichia coli 11/25/18 11:30 Venous blood - Left Arm Blood Culture - Final NO GROWTH IN 5 DAYS 11/25/18 11:26 Venous blood - Right Hand Blood Culture - Final Escherichia coli 12/18/18 Unknown Urine Straight Catheter Urine Culture - Preliminary Laboratory Tests 11/26/18 11/28/18 11/29/18 04:49 05:45 05:15 WBC Hgb Sodium BUN Creatinine 2.09 H 3.44 H Lactic Acid Phosphorus Magnesium 1.3 L Hep Bs Antigen Hep Bs Antibody Hep B Core Total Ab Hepatitis C Antibody 11/30/18 11/30/18 12/01/18 05:52 06:45 05:24 WBC 10.1 11.5 H Hgb 7.6 L 8.4 L Sodium BUN Creatinine 4.39 H Lactic Acid Phosphorus 5.2 H Magnesium Hep Bs Antigen Hep Bs Antibody Hep B Core Total Ab Hepatitis C Antibody 12/01/18 12/18/18 12/18/18 09:30 08:45 08:45 WBC Hgb 8.4 L Sodium BUN Creatinine Lactic Acid 1.4 Phosphorus Magnesium Hep Bs Antigen Non-Reactive Hep Bs Antibody Non-Reactive Hep B Core Total Ab Non-Reactive Hepatitis C Antibody Non-Reactive 12/18/18 12/19/18 08:45 08:41 WBC Hgb 7.6 L Sodium 130 L BUN 19 Creatinine 5.91 H Lactic Acid Phosphorus Magnesium Hep Bs Antigen Hep Bs Antibody Hep B Core Total Ab Hepatitis C Antibody EKG Reviewed by me: Yes (Tele - SR) Phys Exam - Physical Examination Constitutional: NAD alert, responsive HEENT: PERRLA, sclera anicteric, oral pharynx no lesions Neck: no nodes, no JVD, supple, full ROM Respiratory: no wheezing, no rales, no rhonchi, clear to auscultation bilateral S1, S2 Cardiovascular: RRR, no significant murmur, no rub, gallop Gastrointestinal: soft, non-tender, no distention, positive bowel sounds Musculoskeletal: no edema, pulses present Neurological: normal sensation, moves all 4 limbs Psychiatric: A&O x 3 Skin: normal turgor, cap refill <2 seconds Dx/Plan (1) Hypotension Status: Acute Comment: Likely iatrogenic, improved after volume replacement, titrate BP regimen, serial monitoring (2) Acute worsening of stage 3 chronic kidney disease Code(s): N18.3 - CHRONIC KIDNEY DISEASE, STAGE 3 (MODERATE) Status: Acute Comment: Requiring HD currently last session in last 24h, HD catheter will need to be re-evaluated due to recent leaking during HD (3) UTI (urinary tract infection) Status: Acute Comment: Suspected with hx of MDR E. coli, d/c Rocephin and start Meropenem 1gm IV daily, await final Ucx results (4) C. difficile colitis Status: Acute Comment: Continue Vancomycin, appears clinically resolving, continue Vancomycin another 48h (5) Physical deconditioning Code(s): R53.81 - OTHER MALAISE Status: Acute Comment: PT evaluation for functional assessment, recent fall at [place] prior to this admit. (6) Hyponatremia Code(s): E87.1 - HYPO-OSMOLALITY AND HYPONATREMIA Status: Acute Comment: Improved, continue supportive mgmt, likely due to mild volume overload in context of CKD. - Plan continue antibiotics, PT/OT, medical social consultant, out of bed/ambulate, DVT proph w/ SCDs Stable currently -: PT evaluation for functional assessment -: D/C Rocephin -: Start Meropenem 1gm IV daily -: AM lab: BMP, CBC * Plan for return to SNF in next 48h * Convert to inpt status
[2018-12-20] MEDS: MEROPENEM 1 GM/50 ML 1 GM in Premix Bag 1 BAG IVPB SCH (12:02)
[2018-12-20] MEDS ORDERED: Non-Formulary Item 1 EACH (Gabapentin [Gabapentin] 600 MG) PO SCH (15:00)
[2018-12-20] MEDS: Rosuvastatin 20 MG TAB PO SCH (21:30)
[2018-12-21] MEDS: Lidocaine 5% Patch TD SCH ×2 (00:18→22:49)
[2018-12-21 08:00] LABS: Hemoglobin 7.4 g/dL (12.0-16.0); Mean Corpuscular HGB CONC 31.9 g/dL (32.0-36.0); Mean Corpuscular Hemoglobin 28.2 pg (27.0-31.0); Mean Corpuscular Volume 88.6 fL (78.0-98.0); Mean Platelet Volume 10.4 fL (7.4-10.4); Platelet Count 127 thou/uL (130-400); RBC Distribution Width 17.5 % (11.5-14.5); Red Blood Cell (RBC) Count 2.61 mill/uL (4.20-5.40); White Blood Cell (WBC) Count 7.6 thou/uL (4.8-10.8)
[2018-12-21 08:04] LABS: Anion Gap 12 mmol/L (10-20); BUN (Urea Nitrogen) 31 mg/dL (9.8-20.1); Calc. Creatinine Clearance 13 mL/min (70-130); Calcium 7.6 mg/dL (7.8-10.44); Carbon Dioxide 20 mmol/L (23-31); Chloride 112 mmol/L (98-107); Estimated GFR-MDRD 9; Glucose 87 mg/dL (80-115); Potassium 3.5 mmol/L (3.5-5.1); Sodium 140 mmol/L (136-145)
[2018-12-21] MEDS: Gabapentin 300 MG CAP PO SCH (08:33)
[2018-12-21] MEDS: Saccharomyces boulardii 250 MG CAP PO SCH ×3 (08:34→20:26)
[2018-12-21] MEDS: Vancomycin HCl 25 MG/ML Oral PO SCH ×4 (08:34→20:26)
[2018-12-21] MEDS: Carvedilol 6.25 MG TAB PO SCH ×2 (08:34→16:43)
[2018-12-21] MEDS: Gabapentin 100 MG CAP PO SCH ×3 (09:10→20:25)
[2018-12-21 09:16] LABS: Anisocytosis SLIGHT = 6-15 cells (100X) (0-5/hpf); Eosinophils 1 % (0-10); Hypochromia SLIGHT = 6-15 cells (100X) (0-5/hpf); Lymphocytes 13 % (21-51); MDiff Complete? YES; Monocytes 5 % (0-10); Neutrophil 81 % (42-75); Platelet Morphology Comment Appears Decreased
--- NOTE | 2018-12-21 10:41 | CON ---
DATE OF CONSULTATION: CONSULTING PHYSICIAN: Manuel Tovar MD REQUESTING PHYSICIAN: Dr. Lackey. REASON FOR CONSULTATION: Need for maintenance hemodialysis. IMPRESSION: 1. End-stage renal disease, recently initiated on hemodialysis on a Friday, Friday, and Friday schedule. 2. Hypotension, which I do believe is mainly related to medications, cannot completely, however, rule out incipient sepsis. 3. Recent diagnosis of Clostridium difficile treatment. PLAN: 1. We will hold off dialyzing this patient today 12/18/2018 pending stabilization of the patient's hemodynamics and plan for dialysis the next day. 2. We will recommend discontinuing all antihypertensive medications and gradually wean to of beta antoinette. 3. Further management will be dependent on the clinical course. HISTORY: A 63-year-old female patient who was recently discharged from the hospital here status post management of sepsis, Clostridium difficile colitis, acute kidney injury that progressed to the point of being dependent on hemodialysis. The patient was discharged to [facility]; however, the patient got presented back to the ER given hypotension noted at the intermediate, which was also found in the ER here with a systolic blood pressure in the 70s. Of note, the patient on discharge was started back on all antihypertensive medications and decision is now being taken to involve Renal in the management of this case given the need for maintenance hemodialysis. PAST MEDICAL HISTORY: Unchanged from the recent hospitalization. For the details, please refer to my consult. FAMILY HISTORY: Unchanged from the recent hospitalization. For the details, please refer to my consult. SOCIAL HISTORY: Unchanged from the recent hospitalization. For the details, please refer to my consult. REVIEW OF SYSTEMS: As documented in the body of the history. All the other systems were reviewed and found not to be significantly related to the presenting illness. PHYSICAL EXAMINATION: GENERAL: The patient was found not to be in any obvious distress with improved hemodynamics. VITAL SIGNS: Noted with the following vital signs; afebrile. Heart rate of 90 to 104, respiratory rate of 16, O2 saturation of 97% with a blood pressure . HEENT: Unremarkable. CARDIOVASCULAR SYSTEM: First and second heart sounds were heard. RESPIRATORY SYSTEM: Clear to auscultation. DIGESTIVE SYSTEM: Revealed a benign abdomen. EXTREMITIES: No peripheral edema. SKIN: No new gross rash. LYMPHATICS: No peripheral lymphadenopathy. SUMMARY: A 63-year-old recently initiated on hemodialysis, who just got discharged, re-presented here with hypotension. Thank you for this consultation. We will follow with you. Job ID: [id number]
[2018-12-21] MEDS: Allopurinol 300 MG TAB PO SCH (13:27)
[2018-12-21] MEDS: Acetaminophen 325 MG TAB PO PRN (13:28)
[2018-12-21] MEDS: MEROPENEM 1 GM/50 ML 1 GM in Premix Bag 1 BAG IVPB SCH (13:28)
--- NOTE | 2018-12-21 15:24 | PDOC.PN ---
- Subjective Encounter Start Date: 12/21/18 Encounter Start Time: 14:00 Subjective: f/u for ESRD on HD, c. diff colitis on po Vancomycin. Overall feeling -: better. - Objective Resuscitation Status - Order Detail: 12/18/18 14:16 Resuscitation Status Routine Resuscitation Status: FULL: Full Resuscitation Discussed with: patient VALENTE Reviewed: Yes Vital Signs & Weight: Vital Signs (12 hours) Temp Pulse Pulse Pulse Resp BP BP 12/21/18 13:53 107 H 104 H 104/58 L 96/53 L 12/21/18 13:32 99.8 F H 101 H 18 12/21/18 08:34 12/21/18 07:15 98.4 F 99 16 12/21/18 04:00 98 F 97 17 BP Pulse Ox 12/21/18 13:53 12/21/18 13:32 160/75 H 98 12/21/18 08:34 99 12/21/18 07:15 138/72 99 12/21/18 04:00 106/54 L 97 Weight Admit Weight 175 lb Weight 175 lb I&O: 12/20/18 12/21/18 12/22/18 06:59 06:59 06:59 Intake Total 1300 2305 Balance 1300 2305 Result Diagrams: 12/21/18 07:11 12/21/18 07:11 Additional Labs: Accuchecks 12/21/18 12/21/18 12/20/18 11:03 05:56 20:55 POC Glucose 96 109 152 H 12/20/18 16:39 POC Glucose 131 H Microbiology 12/20/18 09:36 Stool C. difficile GDH Antigen & Toxins - Final 11/26/18 19:00 Stool C. difficile GDH Antigen & Toxins - Final 11/25/18 12:21 Nasopharyngeal swab Influenza Types A,B Direct EIA - Final 11/25/18 12:13 Urine Straight Catheter Urine Culture - Final Escherichia coli 11/25/18 11:30 Venous blood - Left Arm Blood Culture - Final NO GROWTH IN 5 DAYS 11/25/18 11:26 Venous blood - Right Hand Blood Culture - Final Escherichia coli 12/18/18 Unknown Urine Straight Catheter Urine Culture - Preliminary Laboratory Tests 11/26/18 11/28/18 11/29/18 04:49 05:45 05:15 WBC Hgb Sodium BUN Creatinine 2.09 H 3.44 H Lactic Acid Phosphorus Magnesium 1.3 L Hep Bs Antigen Hep Bs Antibody Hep B Core Total Ab Hepatitis C Antibody 11/30/18 11/30/18 12/01/18 05:52 06:45 05:24 WBC 10.1 11.5 H Hgb 7.6 L 8.4 L Sodium BUN Creatinine 4.39 H Lactic Acid Phosphorus 5.2 H Magnesium Hep Bs Antigen Hep Bs Antibody Hep B Core Total Ab Hepatitis C Antibody 12/01/18 12/18/18 12/18/18 09:30 08:45 08:45 WBC Hgb 8.4 L Sodium BUN Creatinine Lactic Acid 1.4 Phosphorus Magnesium Hep Bs Antigen Non-Reactive Hep Bs Antibody Non-Reactive Hep B Core Total Ab Non-Reactive Hepatitis C Antibody Non-Reactive 12/18/18 12/19/18 08:45 08:41 WBC Hgb 7.6 L Sodium 130 L BUN 19 Creatinine 5.91 H Lactic Acid Phosphorus Magnesium Hep Bs Antigen Hep Bs Antibody Hep B Core Total Ab Hepatitis C Antibody EKG Reviewed by me: Yes (Tele - SR) Phys Exam - Physical Examination Constitutional: NAD HEENT: PERRLA, sclera anicteric, oral pharynx no lesions Neck: no nodes, no JVD, supple, full ROM Respiratory: no wheezing, no rales, no rhonchi, clear to auscultation bilateral S1, S2 Cardiovascular: RRR, no significant murmur, no rub, gallop Gastrointestinal: soft, non-tender, no distention, positive bowel sounds Musculoskeletal: no edema, pulses present Neurological: normal sensation, moves all 4 limbs Psychiatric: A&O x 3 Skin: normal turgor, cap refill <2 seconds Dx/Plan (1) Hypotension Status: Acute Comment: Likely iatrogenic, improved after volume replacement, titrate BP regimen, serial monitoring (2) Acute worsening of stage 3 chronic kidney disease Code(s): N18.3 - CHRONIC KIDNEY DISEASE, STAGE 3 (MODERATE) Status: Acute Comment: Requiring HD currently last session in last 24h, HD catheter will need to be re-evaluated due to recent leaking during HD (3) UTI (urinary tract infection) Status: Acute Comment: Suspected with hx of MDR E. coli, d/c Rocephin and start Meropenem 1gm IV daily, await final Ucx results (4) C. difficile colitis Status: Acute Comment: Continue Vancomycin, appears clinically resolving, continue Vancomycin tapering until 12/27/18 (5) Physical deconditioning Code(s): R53.81 - OTHER MALAISE Status: Acute Comment: PT evaluation for functional assessment, recent fall at [place] prior to this admit. (6) Hyponatremia Code(s): E87.1 - HYPO-OSMOLALITY AND HYPONATREMIA Status: Acute Comment: Improved, continue supportive mgmt, likely due to mild volume overload in context of CKD. - Plan continue antibiotics, PT/OT, social worker, out of bed/ambulate, DVT proph w/ SCDs Stable currently -: Continue HD per Renal service -: Continue Vancomycin po to complete course until 12/27/18 -: OOB with PT -: Likely back to [place] in 24h * .
--- NOTE | 2018-12-21 17:55 | PRG ---
DATE OF SERVICE: 12/21/2018 SUBJECTIVE: The patient is seen and examined with no new complaint, noted with the following vital signs. OBJECTIVE: VITAL SIGNS: Temperature of 100, pulse 102, respiratory rate of 18, O2 saturations are 99% with a blood pressure of 119/59. HEENT: Unremarkable. CARDIOVASCULAR: First and second heart sounds were heard. RESPIRATORY: Clear to auscultation. DIGESTIVE: Revealed a benign abdomen. EXTREMITIES: No peripheral edema. SKIN: No new gross rash. LYMPHATICS: No peripheral lymphadenopathy. LABORATORY INVESTIGATION: CBC showed hemoglobin of 7.4. Chemistry showed a creatinine 5.74, BUN of 31, bicarb of 20. IMPRESSION: 1. End-stage renal disease, on dialysis. 2. Likely anemia of chronic kidney disease as well as iron deficiency. 3. Clostridium difficile, on treatment. 4. Urinary tract infection. 5. Labile hemodynamics likely in the context of blood pressure medications. PLAN: 1. The patient requires erythropoiesis-stimulating agent. 2. Renal replacement therapy (hemodialysis schedule of Friday, Friday, and Friday). 3. Further management to be dependent on the clinical course. From the renal standpoint, the patient is good for discharge. Job ID: [id number]
[2018-12-21] MEDS ORDERED: Epoetin (ESRD) 10,000 UNITS/ML VIAL SC SCH (18:00)
[2018-12-21] MEDS: Rosuvastatin 20 MG TAB PO SCH (20:26)
[2018-12-22] MEDS: Carvedilol 6.25 MG TAB PO SCH ×2 (09:47→16:34)
[2018-12-22] MEDS: Acetaminophen 325 MG TAB PO PRN (09:48)
[2018-12-22] MEDS: Gabapentin 100 MG CAP PO SCH ×2 (09:48→16:34)
[2018-12-22] MEDS: Allopurinol 300 MG TAB PO SCH (09:48)
[2018-12-22] MEDS: Saccharomyces boulardii 250 MG CAP PO SCH (09:48)
[2018-12-22] MEDS: Vancomycin HCl 25 MG/ML Oral PO SCH ×3 (09:48→16:34)
[2018-12-22] MEDS: MEROPENEM 1 GM/50 ML 1 GM in Premix Bag 1 BAG IVPB SCH (12:51)
--- NOTE | 2018-12-22 14:00 | DIS ---
DATE OF ADMISSION: 12/20/2018 DATE OF DISCHARGE: 12/22/2018 DISCHARGE DIAGNOSES: 1. Hypotension, iatrogenic, improved. 2. [id number] kidney disease stage 3, requiring hemodialysis currently. 3. Urinary tract infection, suspected. No dominant organism identified. 4. Clostridium difficile colitis, resolving. 5. Physical deconditioning. 6. Hyponatremia secondary to volume overload, resolved. CONSULTATIONS: Dr. Jackson with Nephrology Service. PERTINENT LAB AND X-RAY FINDINGS: Sodium ranged between 130 to 140, creatinine ranged between 5.74 to 5.98, estimated GFR 9. CBC showed a white blood cell count ranged between 7.6 to 10.4, hemoglobin ranged between 7.4 to 8.4. Urine culture dated on 12/18/2018 showed greater than 100,000 colonies of mixed skin and enteric ashish. C difficile antigen toxin dated on 12/20/2018 unable to be performed. Portable chest x-ray dated on 12/18/2018 showed no acute cardiopulmonary process. HOSPITAL COURSE: The patient was initially admitted to the telemetry unit after presenting with hypotension after recent admission and discharge from [facility]. The patient had been treated for urinary tract infection with multidrug resistant E coli with a complete course of meropenem. The patient returned to the hospital after apparent fall and hypotension. The patient received general supportive management including discontinuation of Lasix and ELIAZAR inhibitors. The patient also was decreased on Coreg to half recurrent dose to 12.5 mg twice daily. Serial blood pressure monitoring showed overall improved blood pressure trend with adjustment to her chronic medication regimen and general supportive care. The patient did receive IV meropenem after concern for potential recurrence of urinary tract infection. However, urine culture did not reveal a dominant organism as stated previously. The patient did receive hemodialysis during the hospital course without complication. The patient was also reassessed for continuation of C difficile colitis, however, exhibited no recurrence of diarrhea and the test was not able to be performed due to well-formed stool. Current recommendations are to continue vancomycin orally to complete a course of therapy until 12/27/2018. Overall, the patient did remain clinically stable during the hospital course. I have discussed disposition with the patient at the time of discharge, who verbalized understanding and in agreement, ready for discharge on 12/22/2018. DISCHARGE MEDICATIONS: 1. Allopurinol 300 mg p.o. daily. 2. [place]-3 fatty acids 1000 mg p.o. daily. 3. Humalog sliding scale. 4. Levsin 0.125 mg sublingually q.4 hours p.r.n. 5. Multivitamin with iron 1 capsule p.o. daily. 6. Crestor 20 mg p.o. daily. 7. Coreg 12.5 mg p.o. b.i.d. 8. Epoetin 7500 units on Friday, Friday, and Friday. 9. Gabapentin 200 mg p.o. t.i.d. 10. Lidocaine patch 5% one patch transdermally daily. 11. Dulera 2 puffs inhaled b.i.d. 12. Protonix 40 mg p.o. daily. 13. Florastor 250 mg p.o. b.i.d. 14. Vancomycin 125 mg p.o. q.i.d. discontinuing on 12/28/2018. 15. Ventolin HFA 2 puffs inhaled q.6 hours p.r.n. FOLLOWUP: The patient may follow up with Dr. Brian Craig, her primary care provider after discharge from [facility]. CONDITION ON DISCHARGE: Fair. ACTIVITY: Ad kandi, rolling walker with standby/contact guard assistance with fall risk precautions. DIET: Renal low-protein. CODE STATUS: Full. DISPOSITION: Discharged to [facility] on 12/22/2018. TIME SPENT: Total time preparing and coordinating discharge, 32 minutes. Job ID: [id number]
[2018-12-22 16:34] VITALS: BP 117/59; TEMP 98.8
--- NOTE | 2018-12-22 16:56 | PRG ---
DATE OF SERVICE: SUBJECTIVE: The patient was seen and examined with no new complaint, very eager to be discharged. Noted with the following vital signs. OBJECTIVE: VITAL SIGNS: Afebrile, temperature 98.9, pulse 98, respiratory rate of 18, O2 saturation 99% with a blood pressure 128/73. HEENT: Unremarkable. CARDIOVASCULAR: First and second heart sounds were heard. RESPIRATORY: Clear to auscultation. DIGESTIVE: Revealed a benign abdomen. Positive bowel sounds. EXTREMITIES: No peripheral edema. SKIN: No new gross rash. LYMPHATICS: No peripheral lymphadenopathy. IMPRESSION: 1. End-stage renal disease, on hemodialysis. 2. Clostridium difficile colitis. 3. Hypotension likely iatrogenic. PLAN: 1. From the renal standpoint, the patient is due for discharge today. 2. Further management to be dependent on the clinical cause. 3. Antihypertensive medication has been adjusted and this communication will be transmitted over to the outpatient dialysis facility. Job ID: [id number]
== END 2018-12-22 18:25 | DRG 314 ==
LOC: ERS 06:55 → ERHOLD 15:00 → 2NO 19:37 → OBSVTOIN 12-20 11:21
PROVIDERS: ADMIT Internal Medicine; ATTEND Internal Medicine
PROC: 5A1D70Z Performance of Urinary Filtration, Intermittent, Less than 6 Hours Per Day (ICD-10-PCS; principal; 2018-12-21)
DX: I95.89 Other hypotension (principal); N18.6 End stage renal disease; C90.00 Multiple myeloma not having achieved remission; A04.71 Enterocolitis due to Clostridium difficile, recurrent; N17.9 Acute kidney failure, unspecified; E87.1 Hypo-osmolality and hyponatremia; I12.0 Hypertensive chronic kidney disease with stage 5 chronic kidney disease or end stage renal disease; J44.9 Chronic obstructive pulmonary disease, unspecified; D63.1 Anemia in chronic kidney disease; Z87.440 Personal history of urinary (tract) infections; Z86.19 Personal history of other infectious and parasitic diseases; Z79.2 Long term (current) use of antibiotics; Z79.4 Long term (current) use of insulin; Z88.6 Allergy status to analgesic agent; Z88.5 Allergy status to narcotic agent; Z88.2 Allergy status to sulfonamides; E11.22 Type 2 diabetes mellitus with diabetic chronic kidney disease; Z99.2 Dependence on renal dialysis
CPT/HCPCS: 36415; 36416; 71045; 80048; 80053; 81003; 81015; 82553; 83605; 83690; 84484; 85007; 85025; 85027; 85060; 87086; 90935; 93005; A4353; G0257; J0696; J2185; J7050; Q4081

== ENCOUNTER 2019-01-21 11:56 | Observation (INO) | payer MEDICARE, MEDICAID ==
[2019-01-21 13:06] LABS: Hemoglobin 5.9 g/dL (12.0-16.0); Mean Corpuscular HGB CONC 30.9 g/dL (32.0-36.0); Mean Corpuscular Hemoglobin 27.5 pg (27.0-31.0); Mean Platelet Volume 10.3 fL (7.4-10.4); Platelet Count 154 thou/uL (130-400); RBC Distribution Width 21.1 % (11.5-14.5); Red Blood Cell (RBC) Count 2.13 mill/uL (4.20-5.40)
[2019-01-21 13:29] LABS: Anisocytosis SLIGHT = 6-15 cells (100X) (0-5/hpf); Hypochromia SLIGHT = 6-15 cells (100X) (0-5/hpf); Lymphocytes 6 % (21-51); MDiff Complete? YES; Monocytes 6 % (0-10); Neutrophil 87 % (42-75); Platelet Morphology Comment Appears Adequate; Reactive Lymphocytes 1 % (0-10)
[2019-01-21 13:35] LABS: ALT (SGPT) 36 U/L (8-55); AST (SGOT) 58 U/L (5-34); Albumin 2.3 g/dL (3.4-4.8); Alkaline Phosphatase 93 U/L (40-150); Anion Gap 14 mmol/L (10-20); BUN (Urea Nitrogen) 10 mg/dL (9.8-20.1); Bilirubin, Total 0.9 mg/dL (0.2-1.2); CK (CPK) 41 U/L (29-168); Calc. Creatinine Clearance 0 mL/min (70-130); Calcium 8.2 mg/dL (7.8-10.44); Carbon Dioxide 22 mmol/L (23-31); Chloride 100 mmol/L (98-107); Estimated GFR-MDRD 21; Glucose 71 mg/dL (80-115); Lipase 18 U/L (8-78); Potassium 3.5 mmol/L (3.5-5.1); Sodium 132 mmol/L (136-145)
[2019-01-21 13:49] LABS: Globulin 9.7 g/dL (2.4-3.5); Protein, Total Greater than 12.0 g/dL (6.0-8.3)
[2019-01-21 13:51] LABS: CKMB 0.4 ng/mL (0-6.6)
[2019-01-21] MEDS ORDERED: Senokot S 8.6-50 MG TAB PO PRN (15:43)
[2019-01-21] MEDS ORDERED: Guaifenesin DM 100-10/5 ML UDCUP PO PRN (15:43)
[2019-01-21] MEDS ORDERED: Hyoscyamine Sulfate SL 0.125 mg Tablet SL PRN (15:47)
[2019-01-21] MEDS ORDERED: PROVENTIL INHALER 6.7 G (200 INHALATIONS) INH PRN (15:47)
[2019-01-21] MEDS ORDERED: Dextrose 50% Abboject 50 ML SYRINGE SLOW IVP PRN (15:59)
[2019-01-21] MEDS ORDERED: HumaLOG 300 UNITS/3 ML VIAL SC PRN (15:59)
[2019-01-21] MEDS ORDERED: Dextrose 5% in Water 1,000 ML IV PRN (15:59)
[2019-01-21 16:30] LABS: Troponin I Less than 0.010 ng/mL (< 0.028)
[2019-01-21 17:15] LABS: Lactic Acid 0.8 mmol/L (0.5-2.2)
[2019-01-21 19:26] LABS: Troponin I 0.014 ng/mL (< 0.028)
[2019-01-21] MEDS: Mometasone/Formoterol 120 PUFF INHALER INH SCH (19:42)
[2019-01-21] MEDS: Carvedilol 6.25 MG TAB PO SCH (20:39)
--- NOTE | 2019-01-21 22:26 | HP ---
PRIMARY CARE PHYSICIAN: Brian Craig MD CHIEF COMPLAINT: Nausea and vomiting. HISTORY OF PRESENT ILLNESS: This is a 63-year-old female with history of end-stage renal disease, on hemodialysis every Friday, Friday, and Friday, diabetes mellitus type 2, recurrent Clostridium difficile, completing oral vancomycin recently, presumptive multiple myeloma, hypertension, chronic illness anemia of kidney disease, hyperlipidemia, COPD, obesity who comes to the emergency department for multiple episodes of white greenish emesis without any fever, diarrhea, ill contacts. In the emergency department, she was found to have abnormal labs including lower hemoglobin compared to recent admission to the hospital last month. She denies any abdominal pain, recent travel, unusual meals. REVIEW OF SYSTEMS: All systems are reviewed and negative except for the ones mentioned above. PAST MEDICAL HISTORY: As mentioned in HPI. PAST SURGICAL HISTORY: . SOCIAL HISTORY: She lives at a correction, [facility]. No living will, [id number], or advance directive. She is a full code. She denies tobacco, alcohol, no illicit drugs. FAMILY HISTORY: Significant for hypertension, but denies any coronary artery disease. HOME MEDICATIONS: Reviewed. ALLERGIES: REVIEWED. PHYSICAL EXAMINATION: VITAL SIGNS: On triage, blood pressure 116/56, pulse 95, temperature 99 Fahrenheit. GENERAL: She appears in no distress. She is awake, alert, and oriented x3. HEAD AND NECK: Pupils are equal, reactive to light. Extraocular movements are intact. Mucous membranes are moist. Neck is supple. CARDIOVASCULAR: Rhythm and rate are regular. No audible murmurs, rubs, or gallops. PULMONARY: Clear to auscultation bilaterally. No wheezes, rhonchi, or crackles. ABDOMEN: Soft, nontender, nondistended, positive bowel sounds. EXTREMITIES: No palpable edema. Pulses are symmetric. Capillary refill is less than 2 seconds. Range of motion is intact. SKIN: Generalized pallor. No breakdowns are identifiable. NEUROLOGIC: Cranial nerves 2 through 12 are grossly intact. Deep tendon reflexes are normoreflexic. Muscle tone is normal. Muscle strength is5/5. LABORATORY ABNORMALITIES: Hemoglobin 5.9, white blood cell count normal, hematocrit 18.9, platelets are in the normal range. Sodium 132, potassium 3.5, bicarbonate 22, creatinine 2.77. Lactic acid is 2.3, AST 58, troponin 0.03. No imaging studies. ASSESSMENT AND PLAN: 1. Intractable nausea, vomiting: No clear etiology. Suspect acute gastroenteritis. Empiric antiemetics. Empiric antibiotics with the risk of development of recurrent Clostridium difficile. We will continue probiotics to prevent this. Ciprofloxacin 400 mg once a day IV. 2. Nonspecific lactic acidosis: Repeat lab. 3. Acute on chronic anemia: No evidence of bleeding. Receiving 1 unit of packed red blood cells. We will monitor for correction. 4. End-stage renal disease, on hemodialysis: Consult Nephrology for dialysis management every Friday, Friday, and Friday. 5. Diabetes mellitus type 2: Sliding scale insulin with caution. 6. History of recurrent Clostridium difficile: She completed oral vancomycin. We will monitor closely. We will place in contact isolation. Continue probiotics. 7. Essential hypertension: Currently at goal. Continue home medications. 8. Chronic illness anemia of kidney disease: See above. 9. Hyperlipidemia: Continue home statin. 10. Chronic obstructive pulmonary disease: Stable. Continue home inhalers. 11. Obesity with BMI greater than 30. CODE STATUS: Full code. CORE MEASURE: SCDs due to anemia. DISPOSITION: Medical surgical unit in observation. PROGNOSIS: Guarded. CLINICAL STATUS: Guarded. EXPECTED LENGTH OF STAY: Less than 2 midnights. Job ID: [id number]
[2019-01-21 23:53] VITALS: BMI 33.3
[2019-01-22 06:59] LABS: Hemoglobin 6.9 g/dL (12.0-16.0); Mean Corpuscular HGB CONC 33.2 g/dL (32.0-36.0); Mean Corpuscular Hemoglobin 29.4 pg (27.0-31.0); Mean Corpuscular Volume 88.6 fL (78.0-98.0); Mean Platelet Volume 9.8 fL (7.4-10.4); Platelet Count 103 thou/uL (130-400); RBC Distribution Width 17.4 % (11.5-14.5); Red Blood Cell (RBC) Count 2.35 mill/uL (4.20-5.40); White Blood Cell (WBC) Count 5.8 thou/uL (4.8-10.8)
[2019-01-22 07:34] LABS: ALT (SGPT) 22 U/L (8-55); AST (SGOT) 46 U/L (5-34); Albumin 1.8 g/dL (3.4-4.8); Alkaline Phosphatase 81 U/L (40-150); Anion Gap 10 mmol/L (10-20); BUN (Urea Nitrogen) 12 mg/dL (9.8-20.1); Bilirubin, Total 0.5 mg/dL (0.2-1.2); Calc. Creatinine Clearance 25 mL/min (70-130); Calcium 7.7 mg/dL (7.8-10.44); Carbon Dioxide 25 mmol/L (23-31); Chloride 103 mmol/L (98-107); Estimated GFR-MDRD 19; Globulin 8.3 g/dL (2.4-3.5); Glucose 65 mg/dL (80-115); Potassium 2.7 mmol/L (3.5-5.1); Protein, Total 10.1 g/dL (6.0-8.3); Sodium 135 mmol/L (136-145)
[2019-01-22] MEDS ORDERED: Potassium Chloride 20 MEQ TAB PO SCH ×2 (07:45→07:50)
[2019-01-22] MEDS: Acetaminophen 325 MG TAB PO PRN ×2 (07:59→20:14)
[2019-01-22] MEDS: Mometasone/Formoterol 120 PUFF INHALER INH SCH ×2 (08:12→18:48)
[2019-01-22 08:46] LABS: Band 5 % (5-11); Eosinophils 1 % (0-10); Lymphocytes 21 % (21-51); MDiff Complete? YES; Monocytes 7 % (0-10); Neutrophil 58 % (42-75); Platelet Morphology Comment Appears Decreased; Polychromasia SLIGHT = 2-3 cells (100X) (0-2/hpf); Reactive Lymphocytes 8 % (0-10); Rouleaux Formation MARKED = >16 cells (100X) (None Seen)
[2019-01-22] MEDS: Carvedilol 6.25 MG TAB PO SCH ×2 (08:53→18:42)
[2019-01-22] MEDS: Saccharomyces boulardii 250 MG CAP PO SCH ×3 (08:53→20:14)
[2019-01-22] MEDS: Lidocaine 5% Patch TD SCH (08:53)
[2019-01-22] MEDS: Allopurinol 300 MG TAB PO SCH (08:53)
[2019-01-22] MEDS: Rosuvastatin 20 MG TAB PO SCH (08:53)
[2019-01-22] MEDS: Gabapentin 100 MG CAP PO SCH ×4 (08:53→20:14)
[2019-01-22] MEDS: Fish Oil 1,000 MG CAP PO SCH (08:56)
[2019-01-22] MEDS ORDERED: Magnesium Sulfate 2 GM in Sodium Chloride 0.9% 100 ML IVPB SCH (12:45)
[2019-01-22] MEDS ORDERED: Magnesium 2 GM/50 ML 2 GM in Premix Bag 1 BAG IVPB SCH (12:45)
--- NOTE | 2019-01-22 13:00 | PRG ---
DATE OF SERVICE: 01/22/2019 SUBJECTIVE: The patient is seen and examined at the bedside. She is feeling significantly better. She does not have much complaints to offer. She is asking me when she is going to go home. She ate her lunch and breakfast. There was no nausea, no vomiting. She had BM in the emergency room, which did not show any signs of bleeding of fresh blood or black tarry stools. OBJECTIVE: VITAL SIGNS: Blood pressure is 127/56, pulse is 79, respiratory rate is 17, temperature is 97.2, O2 saturation is 99% on room air. HEENT: Head is atraumatic and normocephalic. Eyes are PERRLA. Sclerae are nonicteric. Conjunctivae palish. Oral mucosa is moist. NECK: Supple. No lymphadenopathy. Thyroid is not palpable. LUNGS: Clear. HEART: S1, S2 normal. No S3. No S4. ABDOMEN: Soft, obese, nontender. Bowel sounds are present. No organomegaly. EXTREMITIES: No clubbing, cyanosis, or edema. NEUROLOGICAL: She follows my commands. She moves all 4 extremities. There is no any motor or sensory deficits present. Cranial nerves are intact. LABORATORY DATA: Labs showed a white count of 5.8, hemoglobin 6.9, hematocrit 20.8, platelet count 103. Sodium of 135, potassium 2.7, chloride 103, CO2 of 25, BUN 12, creatinine 3.01, calcium 7.7, magnesium 1.3, total protein 10.1, albumin 1.8, globulin 8.3. Microbiology, blood cultures x2 negative. IMPRESSION: 1. Nausea and vomiting, most likely acute gastritis, resolved versus gastroparesis in the setting of end-stage renal disease patient. 2. Acute on chronic anemia. No evidence of bleeding. Her hemoglobin is up to 6.9 this morning and this is post 2 units of packed red blood cells transfused so far and she is getting the 3rd unit as we speak. 3. End-stage renal disease on hemodialysis 3 times a week. Nephrology consulted for management of this part. 4. Diabetes mellitus type 2. 5. History of recurrent Clostridium difficile, status post completion of treatment. 6. Essential hypertension. 7. Hypokalemia. 8. Hypomagnesemia, for replacement. PLAN: As mentioned above, replace her magnesium and potassium. Nephrology is consulted. Dr. Simon is going to make decision about her dialysis. We will place more potassium and magnesium as needed, and we will try to get the guaiac stool on her. Job ID: [id number]
[2019-01-22 14:11] LABS: Potassium 3.5 mmol/L (3.5-5.1)
[2019-01-22] MEDS ORDERED: Epoetin (ESRD) 20,000 UNITS/ML IVP SCH (14:15)
[2019-01-22] MEDS ORDERED: EPOETIN ALFA-EPBX (NON-ESRD) 10,000 UNIT/ML VIAL IVP SCH (15:00)
[2019-01-22] MEDS ORDERED: EPOETIN ALFA-EPBX (ESRD) 10,000 UNIT/ML VIAL IVP SCH (20:00)
[2019-01-22] MEDS: Lidocaine Patch Removal TOP SCH (20:15)
--- NOTE | 2019-01-23 02:18 | CON ---
DATE OF CONSULTATION: CONSULTING PHYSICIAN: Manuel Tovar MD REASON FOR CONSULTATION: Need for maintenance hemodialysis. IMPRESSION: 1. End-stage renal disease, on hemodialysis Friday, Friday, and Friday. 2. Severe anemia, query cause. 3. Hypokalemia. PLAN: 1. The patient to be dialyzed today in accordance with Friday, Friday, and Friday schedule with 0 ultrafiltration as the patient seems to have been vomiting for some time. 2. We will dialyze this patient with a high potassium bath. 3. A 24-hour urine collection for creatinine clearance to re-evaluate this patient's renal function vis-a-vis possibility of some renal recovery. HISTORY OF PRESENT ILLNESS: This is a 63-year-old female patient with renal failure requiring renal replacement therapy, has been on dialysis Friday, Friday and Friday for a few months now. The patient presented with nausea and vomiting, and noted to be severely anemic with hemoglobin of 5.9. Decision has been taken to admit this patient and need for renal replacement therapy necessitated this consultation. PAST MEDICAL HISTORY: Significant for end-stage renal disease, COPD, obesity, hypertension, and dyslipidemia. MEDICATIONS: Reviewed as documented on [facility]. SOCIAL HISTORY: The patient lives at home now. No alcohol. No tobacco. No illicit drug use. REVIEW OF SYSTEMS: As documented in the body of the history. All the other systems were reviewed and found not to be significantly related to present illness. FAMILY HISTORY: Not significantly related to presenting complaint. PHYSICAL EXAMINATION: GENERAL: The patient was found not to be in any obvious distress. Hemodynamically stable. HEENT: Unremarkable. CARDIOVASCULAR: First and second heart sounds were heard. RESPIRATORY: Clear to auscultation. DIGESTIVE: Revealed a benign abdomen. EXTREMITIES: No peripheral edema. SKIN: No new gross rash. LYMPHATICS: No peripheral lymphadenopathy. VITAL SIGNS: Revealed a temperature 97.5, pulse 82, respiratory rate of 17, O2 saturation 100%, with blood pressure 137/81. SUMMARY: This is a 63-year-old female patient, hemodialysis dependent with renal failure, who presented with nausea, vomiting, and is noted to be severely hypokalemic and severely anemic. Thank you for this consultation. We will follow with you. Job ID: [id number]
[2019-01-23] MEDS: Mometasone/Formoterol 120 PUFF INHALER INH SCH ×2 (06:15→18:29)
[2019-01-23] MEDS: Carvedilol 6.25 MG TAB PO SCH ×2 (10:13→18:11)
[2019-01-23] MEDS: Rosuvastatin 20 MG TAB PO SCH (10:13)
[2019-01-23] MEDS: Saccharomyces boulardii 250 MG CAP PO SCH ×2 (10:13→20:12)
[2019-01-23] MEDS: Allopurinol 300 MG TAB PO SCH (10:13)
[2019-01-23] MEDS: Lidocaine 5% Patch TD SCH (10:13)
[2019-01-23] MEDS: Gabapentin 100 MG CAP PO SCH ×3 (10:13→20:12)
[2019-01-23] MEDS: Fish Oil 1,000 MG CAP PO SCH (10:14)
[2019-01-23] MEDS: Acetaminophen 325 MG TAB PO PRN (10:21)
[2019-01-23 10:33] LABS: Anion Gap 5 mmol/L (10-20); BUN (Urea Nitrogen) 6 mg/dL (9.8-20.1); Calc. Creatinine Clearance 38 mL/min (70-130); Calcium 7.3 mg/dL (7.8-10.44); Carbon Dioxide 26 mmol/L (23-31); Chloride 106 mmol/L (98-107); Estimated GFR-MDRD 31; Glucose 101 mg/dL (80-115); Potassium 3.4 mmol/L (3.5-5.1); Sodium 134 mmol/L (136-145)
[2019-01-23 10:36] LABS: Band 5 % (5-11); Eosinophils 2 % (0-10); Hemoglobin 9.1 g/dL (12.0-16.0); Lymphocytes 32 % (21-51); MDiff Complete? YES; Mean Corpuscular HGB CONC 32.4 g/dL (32.0-36.0); Mean Corpuscular Hemoglobin 29.3 pg (27.0-31.0); Mean Corpuscular Volume 90.3 fL (78.0-98.0); Mean Platelet Volume 10.1 fL (7.4-10.4); Monocytes 3 % (0-10); Neutrophil 58 % (42-75); Platelet Count 101 thou/uL (130-400); Platelet Morphology Comment Appears Decreased; RBC Distribution Width 17.5 % (11.5-14.5); Red Blood Cell (RBC) Count 3.12 mill/uL (4.20-5.40); White Blood Cell (WBC) Count 6.2 thou/uL (4.8-10.8)
--- NOTE | 2019-01-23 16:17 | PRG ---
DATE OF SERVICE: 01/23/2019 SUBJECTIVE: The patient is seen and examined at the bedside. She has good appetite. She does not have much complaints to offer. No more nausea and vomiting. She was seen by Dr. Jackson yesterday. OBJECTIVE: VITAL SIGNS: Blood pressure is 115/77, pulse is 86, temperature is 98.2, respiratory rate is 16, and O2 saturation is 97% on room air. HEENT: Head is atraumatic and normocephalic. Sclerae are nonicteric. Oral mucosa is moist. NECK: Supple. LUNGS: Clear. HEART: S1 and S2 normal. No S3. No S4. ABDOMEN: Obese, soft, and nontender. EXTREMITIES: No clubbing, cyanosis, or edema. NEUROLOGIC: She is able to move all 4 extremities. There is no any motor deficits. LABORATORY DATA: Labs showed white count of 6.2, hemoglobin 9.1, hematocrit 28.1, and platelet count 101. Chemistry showed sodium of 134, potassium 3.4, chloride 106, CO2 of 26, BUN 6, creatinine 2.0 up from 1.47 yesterday night, and calcium 7.3. Urine 24-hour collection is in progress. Blood cultures x2 negative. Stool occult blood negative. IMPRESSION: 1. Nausea and vomiting, most likely acute gastritis, resolved. She might have gastroparesis secondary to her end-stage renal disease and diabetes. 2. Acute on chronic anemia with severely low hemoglobin level, today is up to more than 9 after she had 3 units of packed red blood cells transfused. Guaiac was negative. I suspect that this severe anemia is related to her end-stage renal disease. 3. End-stage renal disease, on hemodialysis [address] Jackson is doing 24-hour urine collection for further diagnostic workup on her nephropathy. 4. Diabetes mellitus type 2. 5. History of recurrent Clostridium difficile colitis and status post completion of treatment. 6. Essential hypertension. 7. Hypokalemia, resolved. 8. Hypomagnesemia, resolved. PLAN: Plan is to complete her 24-hour urine collection for nephrology diagnostic workup. This is done by Dr. Jackson. Apparently, Dr. Simon is not her quotation clerk and Dr. Jackson was consulted yesterday. She had negative guaiac stool, so most likely her anemia is not related to any acute GI blood loss and is related most likely to her chronic kidney disease. We will check her magnesium and potassium levels and creatinine tomorrow morning and she should be able to go home, if her hemoglobin is stable and Dr. Jackson is finished with his workup. Job ID: [id number]
[2019-01-23 19:22] LABS: 24 Hr Creatinine 303.42 mg/24 hr (710-1650); Creatinine, Urine 50.57 mg/dL (47-110)
[2019-01-23] MEDS: Lidocaine Patch Removal TOP SCH (20:12)
[2019-01-23] MEDS: Ondansetron PF 4 MG/2 ML Vial IVP PRN (20:12)
[2019-01-24] MEDS: Mometasone/Formoterol 120 PUFF INHALER INH SCH ×2 (06:00→18:27)
[2019-01-24] MEDS: Carvedilol 6.25 MG TAB PO SCH ×2 (08:46→16:18)
[2019-01-24] MEDS: Gabapentin 100 MG CAP PO SCH ×3 (08:46→21:06)
[2019-01-24] MEDS: Fish Oil 1,000 MG CAP PO SCH (08:47)
[2019-01-24] MEDS: Lidocaine 5% Patch TD SCH (08:47)
[2019-01-24] MEDS: Allopurinol 300 MG TAB PO SCH (08:47)
[2019-01-24] MEDS: Rosuvastatin 20 MG TAB PO SCH (08:47)
[2019-01-24] MEDS: Saccharomyces boulardii 250 MG CAP PO SCH ×2 (08:47→21:06)
[2019-01-24] MEDS: Acetaminophen 325 MG TAB PO PRN (12:56)
--- NOTE | 2019-01-24 16:52 | PDOC.PN ---
- Subjective Encounter Start Date: 01/24/19 Encounter Start Time: 11:20 Ms. Huggins was seen today in follow-up of nausea and vomiting. she says she feels fine. she is no longer having difficulty with this. - Objective Resuscitation Status - Order Detail: 01/21/19 15:43 Resuscitation Status Routine Resuscitation Status: FULL: Full Resuscitation Discussed with: Patient VALENTE Reviewed: Yes Vital Signs & Weight: Vital Signs (12 hours) Temp Pulse Resp BP Pulse Ox 01/24/19 16:19 99.1 F 75 17 126/65 95 01/24/19 11:46 98.7 F 85 17 141/89 H 96 01/24/19 07:39 99.0 F 89 18 140/82 96 01/24/19 06:00 82 16 97 Weight Weight 179 lb 9.6 oz I&O: 01/23/19 01/24/19 01/25/19 06:59 06:59 06:59 Intake Total 750 1530 Output Total 200 775 Balance 550 755 Result Diagrams: 01/23/19 10:07 01/23/19 10:07 Additional Labs: Accuchecks 01/24/19 01/24/19 01/23/19 11:09 05:23 20:24 POC Glucose 117 H 105 117 H 01/23/19 17:13 POC Glucose 106 Phys Exam - Physical Examination HEENT: PERRLA Respiratory: no wheezing, no rales, no rhonchi, clear to auscultation bilateral Cardiovascular: RRR, no significant murmur, no rub Gastrointestinal: soft, positive bowel sounds + mildly distended Musculoskeletal: pulses present, edema present Dx/Plan (1) Gastroenteritis Code(s): K52.9 - NONINFECTIVE GASTROENTERITIS AND COLITIS, UNSPECIFIED Status : Acute (2) Diabetes type 2, controlled Code(s): E11.9 - TYPE 2 DIABETES MELLITUS WITHOUT COMPLICATIONS Status: Chronic Comment: (3) Dyslipidemia Code(s): E78.5 - HYPERLIPIDEMIA, UNSPECIFIED Status: Chronic Comment: continue statin (4) Hypertension Code(s): I10 - ESSENTIAL (PRIMARY) HYPERTENSION Status: Chronic Qualifiers: Comment: controlled (5) End-stage renal disease needing dialysis Code(s): N18.6 - END STAGE RENAL DISEASE; Z99.2 - DEPENDENCE ON RENAL DIALYSIS Status: Chronic - Plan * Gastroenteritis vs. Gastroparesis- resolved. * End stage renal disease on dialysis- as per Nephrology- 24 hour urine is in progress * HTN- blood pressure is stable * DM- blood glucose is stable
--- NOTE | 2019-01-24 19:46 | PRG ---
DATE OF SERVICE: SUBJECTIVE: The patient is seen and examined with no new complaint. Claims to be feeling much better. Noted with the following vital signs. OBJECTIVE: VITAL SIGNS: Afebrile, temperature 99.1; pulse 75; respiratory rate of 17; blood pressure 126/65; O2 saturations are 95%. HEENT: Unremarkable. CARDIOVASCULAR SYSTEM: First and second heart sounds were heard. RESPIRATORY SYSTEM: Clear to auscultation. DIGESTIVE SYSTEM: Revealed a benign abdomen. EXTREMITIES: No peripheral edema. SKIN: No new gross rash. LYMPHATICS: No peripheral lymphadenopathy. IMPRESSION: 1. End-stage renal disease, on hemodialysis. 2. Anemia, query cause. 3. Gastroenteritis, more or less resolved. PLAN: 1. The patient's 24-hour urine is somewhat inconclusive. This result will be important to make a decision on further need of dialysis in this patient. 2. Renally dose all medications and avoid nephrotoxic agents. 3. Renal function panel in the morning. 4. Further management will be dependent on the clinical course. Job ID: [id number]
[2019-01-24 20:12] LABS: Body Surface Area 1.82; Creatinine, Urine 50.57 mg/dL (47-110)
[2019-01-24] MEDS: Ondansetron PF 4 MG/2 ML Vial IVP PRN (21:06)
[2019-01-24] MEDS: Lidocaine Patch Removal TOP SCH (21:07)
[2019-01-25] MEDS: Mometasone/Formoterol 120 PUFF INHALER INH SCH (07:47)
[2019-01-25 08:54] LABS: Albumin 1.7 g/dL (3.4-4.8); Anion Gap 4 mmol/L (10-20); BUN (Urea Nitrogen) 9 mg/dL (9.8-20.1); BUN/Creatinine Ratio 5.92; Calc. Creatinine Clearance 48 mL/min (70-130); Calcium 7.4 mg/dL (7.8-10.44); Carbon Dioxide 27 mmol/L (23-31); Chloride 107 mmol/L (98-107); Estimated GFR-MDRD 42; Glucose 86 mg/dL (80-115); Potassium 3.1 mmol/L (3.5-5.1); Sodium 135 mmol/L (136-145)
[2019-01-25 08:55] LABS: #Eosinphils 0.1 thou/uL (0.0-0.7); #Lymphocytes 1.7 thou/uL (1.20-3.40); #Monocytes 0.8 thou/uL (0.11-0.59); #Neutrophils 3.6 thou/uL (1.40-6.50); %Basophils 0.4 % (0.0-1.0); %Eosinophils 0.9 % (0.0-10.0); %Lymphocytes 27.7 % (21.0-51.0); %Monocytes 12.6 % (0.0-10.0); %Neutrophils 58.4 % (42.0-75.0); Hemoglobin 8.4 g/dL (12.0-16.0); Mean Corpuscular HGB CONC 32.1 g/dL (32.0-36.0); Mean Corpuscular Hemoglobin 28.8 pg (27.0-31.0); Mean Corpuscular Volume 89.6 fL (78.0-98.0); Mean Platelet Volume 10.2 fL (7.4-10.4); Platelet Count 102 thou/uL (130-400); RBC Distribution Width 17.5 % (11.5-14.5); White Blood Cell (WBC) Count 6.2 thou/uL (4.8-10.8)
[2019-01-25 08:56] LABS: Phosphorus 1.9 mg/dL (2.3-4.7)
--- NOTE | 2019-01-25 11:04 | PDOC.PN ---
- Subjective Encounter Start Date: 01/25/19 Encounter Start Time: 11:02 Ms. Huggins was seen today in follow-up of nausea and vomiting. She says she feels better today. She has been able to tolerate a solid diet. - Objective Resuscitation Status - Order Detail: 01/21/19 15:43 Resuscitation Status Routine Resuscitation Status: FULL: Full Resuscitation Discussed with: Patient VALENTE Reviewed: Yes Vital Signs & Weight: Vital Signs (12 hours) Temp Pulse Resp BP Pulse Ox 01/25/19 07:01 98.6 F 84 16 127/59 L 96 01/25/19 03:03 98.5 F 75 12 117/57 L 97 Weight Weight 173 lb 3 oz I&O: 01/24/19 01/25/19 01/26/19 06:59 06:59 06:59 Intake Total 1530 500 Output Total 775 100 Balance 755 400 Result Diagrams: 01/25/19 08:10 01/25/19 08:19 Additional Labs: Accuchecks 01/25/19 01/24/19 01/24/19 05:15 20:20 17:12 POC Glucose 83 129 H 104 01/24/19 11:09 POC Glucose 117 H Phys Exam - Physical Examination HEENT: PERRLA Respiratory: no wheezing, no rales, no rhonchi, clear to auscultation bilateral Cardiovascular: RRR, no significant murmur, no rub Gastrointestinal: soft, non-tender, no distention, positive bowel sounds Musculoskeletal: no edema, pulses present Dx/Plan (1) Gastroenteritis Code(s): K52.9 - NONINFECTIVE GASTROENTERITIS AND COLITIS, UNSPECIFIED Status : Acute (2) Diabetes type 2, controlled Code(s): E11.9 - TYPE 2 DIABETES MELLITUS WITHOUT COMPLICATIONS Status: Chronic Comment: (3) Dyslipidemia Code(s): E78.5 - HYPERLIPIDEMIA, UNSPECIFIED Status: Chronic Comment: continue statin (4) Hypertension Code(s): I10 - ESSENTIAL (PRIMARY) HYPERTENSION Status: Chronic Qualifiers: Comment: controlled (5) End-stage renal disease needing dialysis Code(s): N18.6 - END STAGE RENAL DISEASE; Z99.2 - DEPENDENCE ON RENAL DIALYSIS Status: Chronic - Plan * Nausea and vomiting- possibly due to Gastroenteritis or Gastroparesis from diabetes mellitus * Acute renal failure vs. Chronic kidney disease- she is stable for discharge as per Nephrology .
[2019-01-25] MEDS: Acetaminophen 325 MG TAB PO PRN (11:28)
[2019-01-25] MEDS: Gabapentin 100 MG CAP PO SCH ×2 (11:28→16:57)
[2019-01-25] MEDS: Fish Oil 1,000 MG CAP PO SCH (11:28)
[2019-01-25] MEDS: Rosuvastatin 20 MG TAB PO SCH (11:28)
[2019-01-25] MEDS: Allopurinol 300 MG TAB PO SCH (11:28)
[2019-01-25] MEDS: Lidocaine 5% Patch TD SCH (11:28)
[2019-01-25] MEDS: Saccharomyces boulardii 250 MG CAP PO SCH (11:29)
[2019-01-25] MEDS: Carvedilol 6.25 MG TAB PO SCH ×2 (11:29→16:56)
--- NOTE | 2019-01-25 15:56 | PRG ---
DATE OF SERVICE: 01/25/2019 SUBJECTIVE: The patient was seen and examined at dialysis, seems to be doing much better, very eager to go home. Noted with the following vital signs. OBJECTIVE: VITAL SIGNS: Afebrile. Temperature 98.8, pulse 75, respiratory rate of 17, O2 saturations 100%, with blood pressure 141/83. HEENT: Unremarkable. CARDIOVASCULAR SYSTEM: First and second heart sounds were heard. RESPIRATORY SYSTEM: Clear to auscultation. DIGESTIVE SYSTEM: Revealed a benign abdomen. EXTREMITIES: No peripheral edema. SKIN: No new gross rash. LYMPHATICS: No peripheral lymphadenopathy. IMPRESSION: 1. End-stage renal disease with very confusing 24-hour creatinine clearance result. 2. Gastroenteritis, resolved. PLAN: 1. The patient's 24-hour creatinine clearance came back at 14. The patient's serum creatinine not that consistent with such low level of kidney function. For now, we will reduce this patient dialysis to twice a week and down the road, we will re-evaluate this patient's renal function. 2. Further management to be dependent on the clinical course. From the renal standpoint, the patient is good for discharge. Job ID: [id number]
[2019-01-25 16:59] VITALS: BP 145/67; TEMP 98.6
[2019-01-25] MEDS ORDERED: Heparin 10,000 UNITS/ 10 ML VIAL ONE (19:25)
--- NOTE | 2019-01-25 23:15 | DIS ---
DATE OF ADMISSION: 01/21/2019 DATE OF DISCHARGE: 01/25/2019 PRIMARY CARE PHYSICIAN: Dr. Brian Craig. DISCHARGE DISPOSITION: Home. PRIMARY DISCHARGE DIAGNOSES: 1. Probable gastroenteritis. 2. Possible diabetic gastroparesis. 3. Acute versus chronic renal failure, on dialysis. 4. Diabetes mellitus type 2. 5. Hypertension. 6. Anemia of chronic disease. 7. Chronic obstructive pulmonary disease. DISCHARGE MEDICATIONS: 1. Reglan 5 mg p.o. three times a day as needed for nausea and vomiting. 2. Continue Ventolin inhaler 2 puffs q.6 as needed. 3. Protonix 40 mg daily. 4. Dulera 200/5 mcg 2 puffs twice daily. 5. Lidoderm patch as directed. 6. Neurontin 200 mg t.i.d. 7. Procrit 7500 units on Friday, Friday, and Friday. 8. Crestor 20 mg daily. 9. Iron plus folic acid and B complex once daily. 10. Levsin 0.125 mg sublingual p.r.n. 11. Humalog insulin sliding scale. 12. Coreg 25 mg twice daily. 13. Allopurinol 300 mg daily. CODE STATUS: Full code. ALLERGIES: ACETAMINOPHEN, HYDROCODONE, CODEINE, MORPHINE, SULFA, AND TRAMADOL. HOSPITAL COURSE: Ms. Huggins is a pleasant 63-year-old female, who presented to the emergency room complaining of nausea, vomiting, as well as abdominal pain. The patient's symptoms actually improved over the course of the next day. The patient had stool studies which were essentially negative as well as blood cultures and it is felt that her nausea and vomiting probably represented gastroenteritis versus possible diabetic gastroparesis. Also during the hospital stay, her shearing supervisor checked a 24-hour urine as well as creatinine clearance and he is thinking that she may actually no longer need dialysis and has actually changed her dialysis schedule from 3 times a week to twice a week. The patient will be discharged home today with Reglan only as needed for nausea and vomiting. Job ID: [id number]
== END 2019-01-25 17:45 | disposition home or self-care (01) ==
LOC: ERS 11:56 → ERHOLD 18:06 → 2NO 23:35
PROVIDERS: ADMIT Internal Medicine; ATTEND Internal Medicine
DX: R11.2 Nausea with vomiting, unspecified (principal); I12.0 Hypertensive chronic kidney disease with stage 5 chronic kidney disease or end stage renal disease; E11.22 Type 2 diabetes mellitus with diabetic chronic kidney disease; N18.6 End stage renal disease; D63.1 Anemia in chronic kidney disease; E78.5 Hyperlipidemia, unspecified; J44.9 Chronic obstructive pulmonary disease, unspecified; E87.6 Hypokalemia; E83.42 Hypomagnesemia; E66.9 Obesity, unspecified; E11.10 Type 2 diabetes mellitus with ketoacidosis without coma; Z68.32 Body mass index [BMI] 32.0-32.9, adult; Z99.2 Dependence on renal dialysis; Z79.899 Other long term (current) drug therapy; Z88.5 Allergy status to narcotic agent; Z88.8 Allergy status to other drugs, medicaments and biological substances; Z88.2 Allergy status to sulfonamides
CPT/HCPCS: 36430 ×2; 51702; 80048; 80053 ×2; 80069; 82274; 82550; 82553; 82570; 82575; 82962 ×5; 83605; 83690; 83735; 84132; 84484 ×2; 85025 ×4; 86850; 86900; 86901; 86920; 87040; 93005; 94640 ×4; 96365; 97139; 99285; G0378 ×3; P9016 ×2; Q5105; Q5106; 36415; 36416; 90935; G0257; J0744; J1644; J2405; J3475

== ENCOUNTER 2019-02-20 07:54 | Observation (INO) | payer MEDICARE, MEDICAID ==
--- NOTE | 2019-02-20 10:36 | RAD ---
EXAM: Single view of the chest HISTORY: Diffuse back pain and chest pain COMPARISON: 12/18/2018 FINDINGS: Single view of the chest shows a normal sized cardiomediastinal silhouette. There is no neeraj dence of consolidation, mass, or pleural effusion. The bones are unremarkable. IMPRESSION: No evidence of acute cardiopulmonary disease
--- NOTE | 2019-02-20 10:39 | RAD ---
Exam: 3 views of the lumbosacral spine HISTORY: Low back pain COMPARISON: None FINDINGS: 3 views of the lumbosacral spine shows normal height and alignment of the vertebral bodies and intervertebral discs without fracture or subluxation. Mild degenerative changes are seen in the lower lumbosacral spine with posterior facet arthrosis and mild L4/5 intervertebral disc space narrow ing. The sacroiliac joints are unremarkable. IMPRESSION: Degenerative changes of the lumbar spine without acute osseous abnormality.
[2019-02-20 11:20] LABS: ALT (SGPT) 25 U/L (8-55); AST (SGOT) 37 U/L (5-34); Albumin 2.4 g/dL (3.4-4.8); Alkaline Phosphatase 77 U/L (40-150); Anion Gap 12 mmol/L (10-20); BUN (Urea Nitrogen) 14 mg/dL (9.8-20.1); Bilirubin, Total 0.7 mg/dL (0.2-1.2); Calc. Creatinine Clearance 0 mL/min (70-130); Calcium 8.6 mg/dL (7.8-10.44); Carbon Dioxide 15 mmol/L (23-31); Chloride 112 mmol/L (98-107); Estimated GFR-MDRD 34; Globulin 8.9 g/dL (2.4-3.5); Glucose 81 mg/dL (80-115); Potassium 3.3 mmol/L (3.5-5.1); Protein, Total 11.3 g/dL (6.0-8.3); Sodium 136 mmol/L (136-145)
[2019-02-20 11:23] LABS: Band 1 % (5-11); Eosinophils 2 % (0-10); Hemoglobin 6.5 g/dL (12.0-16.0); Lymphocytes 38 % (21-51); MDiff Complete? YES; Mean Corpuscular HGB CONC 32.8 g/dL (32.0-36.0); Mean Corpuscular Hemoglobin 29.7 pg (27.0-31.0); Mean Corpuscular Volume 90.5 fL (78.0-98.0); Mean Platelet Volume 10.7 fL (7.4-10.4); Monocytes 10 % (0-10); Neutrophil 49 % (42-75); Platelet Count 99 thou/uL (130-400); RBC Distribution Width 17.3 % (11.5-14.5); Red Blood Cell (RBC) Count 2.18 mill/uL (4.20-5.40); White Blood Cell (WBC) Count 5.9 thou/uL (4.8-10.8)
[2019-02-20 11:27] LABS: Clarity Hazy (Clear); Leukocyte Negative (Negative); Nitrite Negative (Negative); Protein, Urine (Dipstick) 100 mg/dL (Neg-Trace); Specific Gravity, Urine 1.015 (1.005-1.030)
[2019-02-20 11:28] LABS: Bilirubin Negative (Negative); Blood, Urine Trace (Negative); Glucose, Urine (Dipstick) Negative (Negative)
[2019-02-20 11:29] LABS: RBC/HPF 0-3 HPF (0-3); WBC/HPF 0-3 HPF (0-3)
[2019-02-20 11:30] LABS: Bacteria/HPF None Seen HPF (None Seen); Hyaline Casts/LPF NONE SEEN LPF (0-3 Hyaline)
--- NOTE | 2019-02-20 12:19 | CT ---
EXAM: CT of the lumbar spine without contrast HISTORY: Diffuse back pain for one month COMPARISON: None TECHNIQUE: Multiple contiguous axial images were obtained in a CT of the lumbar spine without contras t. Sagittal and coronal reformats were performed. FINDINGS: The vertebral bodies and intervertebral discs demonstrate normal height and alignment witho ut fracture or subluxation. Vacuum phenomenon is seen at multiple levels. Small osteophytes are seen throughout the lumbar spine. Posterior facet arthrosis is seen at L4/5 and L5/S1. There is a 1.5 cm ossific body within the central canal at the L4/5 level that appears to trace back to the right posterior facet. This likely represents a calcified synovial cyst. This appea rs to cause severe central canal stenosis. . Atherosclerotic calcifications are seen in the aorta. IMPRESSION: 1. No evidence of acute osseous abnormality of the lumbar spine. 2. Chronic calcified synovial cyst at L4/5 causing severe central canal stenosis.
[2019-02-20 13:56] LABS: Iron 120 ug/dL (50-170); Iron Binding Capacity, Total 118 mcg/dL (265-497)
--- NOTE | 2019-02-20 14:01 | CT ---
CT Abdomen Pelvis WO Con: 02/20/2019 1:20 PM HISTORY: Back pain for the last month COMPARISON: 11/28/2018 Procedure: Multiple contiguous axial images were obtained and a CT of the abdomen and pelvis without IV contrast . Coronal reformats were performed. FINDINGS: This examination is limited for the evaluation of solid organs and vascular structures due to the lac k of intravenous contrast. Lower Chest: within normal limits. Abdomen: Liver: Diffuse fatty infiltration Bile Ducts: Normal caliber. Gallbladder: No calcified gallstones. Normal caliber wall. Pancreas: within normal limits. Spleen: within normal limits. Adrenals: within normal limits. Kidneys: within normal limits. Pelvis: Reproductive Organs: No pelvic masses. Ureters: within normal limits. Bladder: within normal limits. Bowel: Scattered diverticula in the colon. Normal small bowel and appendix. Mesenteric Lymph Nodes: No enlarged mesenteric lymph nodes. Peritoneum: No ascites or free air, no fluid collection. Vessels: Atherosclerotic changes . Retroperitoneum: within normal limits. Abdominal Wall: 1.2 cm fat-containing umbilical hernia. Bones: Degenerative changes in the spine. IMPRESSION: 1. Fatty liver 2. Diverticulosis
[2019-02-20] MEDS ORDERED: Acetaminophen 325 MG TAB PO PRN (14:24)
[2019-02-20] MEDS ORDERED: Senokot S 8.6-50 MG TAB PO PRN (14:24)
[2019-02-20] MEDS ORDERED: Acetaminophen/Codeine 30-300mg Tablet PO PRN (14:25)
[2019-02-20] MEDS ORDERED: Metoclopramide HCl 10 MG TAB PO PRN (14:26)
[2019-02-20] MEDS ORDERED: Ondansetron PF 4 MG/2 ML Vial IVP PRN (14:45)
[2019-02-20] MEDS ORDERED: Cyclobenzaprine 10 MG TAB PO SCH (14:45)
[2019-02-20] MEDS ORDERED: Ondansetron ODT 4 MG TAB SL PRN (14:45)
[2019-02-20 14:57] VITALS: BMI 33.5
[2019-02-20] MEDS ORDERED: HumaLOG 300 UNITS/3 ML VIAL SC PRN (14:57)
[2019-02-20] MEDS ORDERED: Dextrose 5% in Water 1,000 ML IV PRN (14:57)
[2019-02-20] MEDS ORDERED: Dextrose 50% Abboject 50 ML SYRINGE SLOW IVP PRN (14:57)
[2019-02-20] MEDS: Gabapentin 100 MG CAP PO SCH ×2 (16:44→20:04)
[2019-02-20] MEDS: Mometasone/Formoterol 120 PUFF INHALER INH SCH (18:24)
[2019-02-20] MEDS ORDERED: Fentanyl 100 MCG/2 ML VIAL SLOW IVP PRN (19:33)
[2019-02-20] MEDS: Cyclobenzaprine 10 MG TAB PO SCH (20:04)
[2019-02-20] MEDS: Carvedilol 25 MG TAB PO SCH (20:04)
--- NOTE | 2019-02-20 21:10 | HP ---
CHIEF COMPLAINT: Lower back pain. HISTORY OF PRESENT ILLNESS: The patient is a very pleasant 63-year-old female with past medical history of CKD, intermittent dialysis. Her last dialysis was about a week ago, multiple myeloma, unclear of the treatment, history of hypertension and history of diabetes, who presents to the hospital with lower back pain. The patient stated that her pain to her lower back has been going on for the past few months. The patient states that she has been recently prescribed diclofenac by her PCP, however, this has not worked. She used up her whole 100 g tube within a week. The patient also states that she had a fall earlier this month. She stated that she lost her balance and she fell on her on her bottom. She denies any fevers or chills, any nausea, vomiting, or diarrhea. The patient denies any shortness of breath, chest pain, chest pressure. She denies any palpitations. PAST MEDICAL HISTORY: As of the following. 1. She is on chronic kidney disease, intermittent dialysis. 2. She has had recurrent C. diff. 3. She has had diabetes. 4. She has presumptive multiple myeloma. 5. She has hypertension. 6. Anemia of chronic disease. 7. Hyperlipidemia. 8. COPD. 9. Obesity. PAST SURGICAL HISTORY: She has had a and she has had a temporary dialysis catheter. SOCIAL HISTORY: She lives in a detention. She has physical therapy and occupational therapy and the patient is currently a full code. She denies any alcohol use, drug use, or smoking history. FAMILY HISTORY: Significant for hypertension, but no heart disease. HOME MEDICATIONS: As of the followin. She is on allopurinol 300 mg daily. 2. Carvedilol 25 mg b.i.d. 3. Gabapentin 200 mg t.i.d. 4. Metoclopramide 5 mg t.i.d. 5. Pantoprazole 40 mg daily. 6. Rosuvastatin 20 mg daily. REVIEW OF SYSTEMS: All negative for the ones mentioned above in the HPI. PHYSICAL EXAMINATION: VITAL SIGNS: As of the following; temperature of 98.8, heart rate of 80, blood pressure 140/60, she is 100% on room air. GENERAL: She is awake, alert, and oriented x3. Does not appear in distress. HEENT: Normocephalic, atraumatic. Pupils are equal and reactive to light. NECK: No lymphadenopathy noted. CV: S1 and S2 present. No murmurs, rubs, gallops. LUNGS: Clear to auscultation. No rhonchi or wheezes noted. ABDOMEN: Soft and nontender. Bowel sounds are present x2. EXTREMITIES: No edema. Pedal pulses are present x2. NEUROVASCULAR: There are no focal deficits noted. MUSCULOSKELETAL: Spine exam, patient does have pain upon palpation to her right and left paraspinal area; however no pain around palpating her spinal area. She is able to lift both extremities without any issues. Pedal pulses are present bilaterally. LABORATORY RESULTS: As of the following; WBCs of 5.9, hemoglobin of 6.5, hematocrit of 19.8, platelets of 99. Chemistry: Sodium of 136, potassium of 3.3, BUN of 14, creatinine at 1.82. Her ferritin is significantly high 4091. Iron is 120. She also had a CT of abdomen and pelvis. No acute abnormalities were noted except for the fact that she has fatty liver, which was mentioned on the CT scan. No bleeding was noted. Also, CT lumbar scan was done, which indicated no evidence of osseous abnormalities; however she does have a synovial cyst on L4-L5 causing some canal stenosis. ASSESSMENT AND PLAN: The patient is a very pleasant 63-year-old female who presents to the hospital with complaints of lower back pain. 1. [id number] anemia. Patient's hemoglobin today is 6.5. She was about, I believe 7.0 a few weeks ago. She does have a history of multiple myeloma and upon reviewing her records, it seems that she has chronically been very very low. Her average hemoglobin has been ranging from lowest of 5.9 to the highest of 9-10. The patient is currently completely asymptomatic. We will give her 1 unit of PRBC. I did speak with her in length about following up with Dr. Jones. The patient states that she has not followed up with Dr. Jones especially since she was on dialysis and I am unclear about the treatment, either she received any treatment for this presumptive multiple myeloma versus just watching her. I am not even sure, if she has multiple myeloma versus myelodysplastic syndrome. She did have a serum electrophoresis and she has had multiple studies done almost multiple times over the past years. 2. Lower back pain. I believe this is probably from muscle spasms. Lumbar CT did not indicate any acute abnormalities except for some stenosis. The patient, however, does not have any weakness or any numbness or tingling to her lower extremities. I will consult physical therapy. I will put her on some Flexeril and I will give her some pain medications. If her pain does not resolve, may consider prednisone for better control of her pain, especially in terms of anti-inflammatory. I am unable to prescribe her any nonsteroidal anti-inflammatory drugs given her history of chronic kidney disease. 3. History of hypertension. I will continue her home medications. 4. History of diabetes. We will do Accu-Cheks before meals and at bedtime and we will continue to monitor. 5. Chronic kidney disease. I did speak with the clerical order filler who has relieved her from dialysis. Her creatinine currently is great, it is at 1.2 and he does not believe she needs dialysis nor does she need Procrit. 6. Deep venous thrombosis prophylaxis. I will put her on some sequential compression devices. Job ID: [id number]
[2019-02-21 06:07] LABS: Anion Gap 9 mmol/L (10-20); BUN (Urea Nitrogen) 13 mg/dL (9.8-20.1); Calc. Creatinine Clearance 48 mL/min (70-130); Calcium 8.5 mg/dL (7.8-10.44); Carbon Dioxide 18 mmol/L (23-31); Chloride 113 mmol/L (98-107); Estimated GFR-MDRD 41; Glucose 73 mg/dL (80-115); Potassium 3.5 mmol/L (3.5-5.1); Sodium 136 mmol/L (136-145)
[2019-02-21 06:42] LABS: Anisocytosis SLIGHT = 6-15 cells (100X) (0-5/hpf); Band 2 % (5-11); Hemoglobin 6.7 g/dL (12.0-16.0); Lymphocytes 30 % (21-51); MDiff Complete? YES; Mean Corpuscular HGB CONC 34.9 g/dL (32.0-36.0); Mean Corpuscular Hemoglobin 31.3 pg (27.0-31.0); Mean Corpuscular Volume 89.7 fL (78.0-98.0); Mean Platelet Volume 10.2 fL (7.4-10.4); Monocytes 15 % (0-10); Neutrophil 52 % (42-75); Platelet Count 95 thou/uL (130-400); Platelet Morphology Comment Appears Decreased; RBC Distribution Width 17.1 % (11.5-14.5); Reactive Lymphocytes 1 % (0-10); Red Blood Cell (RBC) Count 2.12 mill/uL (4.20-5.40); Rouleaux Formation MODERATE= 6-15 cells (100X) (None Seen); White Blood Cell (WBC) Count 4.8 thou/uL (4.8-10.8)
[2019-02-21] MEDS: Mometasone/Formoterol 120 PUFF INHALER INH SCH (07:43)
[2019-02-21] MEDS ORDERED: Allopurinol 300 MG TAB PO SCH (09:00)
[2019-02-21] MEDS ORDERED: Rosuvastatin 20 MG TAB PO SCH (09:00)
[2019-02-21] MEDS: Cyclobenzaprine 10 MG TAB PO SCH (10:01)
[2019-02-21] MEDS: Gabapentin 100 MG CAP PO SCH ×2 (10:01→16:19)
[2019-02-21] MEDS: Carvedilol 25 MG TAB PO SCH (10:02)
[2019-02-21] MEDS ORDERED: predniSONE 20 MG TAB PO SCH (12:15)
--- NOTE | 2019-02-21 14:54 | RAD ---
EXAM: 2 views of the right hip HISTORY: Right hip pain after fall at home COMPARISON: None FINDINGS: 2 views of the right hip shows no evidence of acute fracture or dislocation. No degenerativ e changes are seen. No soft tissue swelling is present. IMPRESSION: No evidence of acute osseous abnormality.
--- NOTE | 2019-02-21 14:55 | RAD ---
Exam: Single view of the pelvis HISTORY: Pelvic and hip pain COMPARISON: None FINDINGS: A single view the pelvis shows no evidence of acute fracture or dislocation. No degenerativ e changes seen in either hip. IMPRESSION: No evidence of acute osseous abnormality.
--- NOTE | 2019-02-21 14:55 | RAD ---
EXAM: 2 views of the left hip HISTORY: Bilateral hip pain COMPARISON: None FINDINGS: 2 views of the left hip shows no evidence of acute fracture or dislocation. No degenerative changes are seen. No soft tissue swelling is present. IMPRESSION: No evidence of acute osseous abnormality.
[2019-02-21 15:02] VITALS: TEMP 98.2
[2019-02-21 15:28] LABS: Hemoglobin 8.1 g/dL (12.0-16.0)
[2019-02-21 15:54] VITALS: BP 138/82
--- NOTE | 2019-02-21 18:56 | DIS ---
DATE OF ADMISSION: 02/20/2019 DATE OF DISCHARGE: 02/21/2019 This is Sheila Lawson PA-C dictating a report for Sneha Georges MD. CHIEF COMPLAINT ON ADMISSION: Back pain. DISCHARGE DIAGNOSES: 1. Back pain secondary to muscle spasm versus some possible sequelae from a fall about a week ago, CTs and x-rays of lumbar spine, hips and pelvis all negative for fracture or injury. 2. Acute on chronic anemia, status post transfusion of 2 units of PRBCs. 3. History of multiple myeloma. 4. History of chronic kidney disease with intermittent dialysis. 5. Hypertension. 6. Diabetes mellitus. 7. Chronic obstructive pulmonary disease. BRIEF HOSPITAL COURSE: The patient is a pleasant 63-year-old female with above medical problems, who presented to the hospital with complaints of lower back and right hip pain. She had lumbar spine CT as well as of the abdomen and pelvis, that were negative for acute injury. Her hip x-rays were negative as well. The patient's pain did improve with steroids as well as with Flexeril. All NSAIDs were avoided secondary to the patient's chronic kidney disease. The patient's hemoglobin on arrival was 6.5. She was transfused 2 units, and final hemoglobin was 8.1 at the time of discharge. Please note that her hemoglobin over the past several months has ranged anywhere from 5.9 to 9.1 in the setting of her multiple myeloma and chronic kidney disease. The patient denies any chest pain, shortness of breath, nausea, or vomiting. She states that her pain has improved as mentioned above. The patient has no other complaints or concerns at this time. DISCHARGE DISPOSITION: Home. DISCHARGE CONDITION: Stable. DISCHARGED MEDICATIONS AND INSTRUCTIONS: New medications for the patient will be a Medrol Dosepak along with Flexeril 10 mg tablet one tablet p.o. t.i.d. She is to avoid any NSAIDs, and this has been explained to the patient at length. She does understand. She also is to follow up with Dr. Jones regarding her chronic anemia. This patient has been seen and evaluated by Dr. Georges, who agrees with discharge as outlined above. Job ID: [id number]
--- NOTE | 2019-02-22 13:56 | CON ---
DATE OF CONSULTATION: REASON FOR CONSULTATION: Advanced chronic kidney disease. IMPRESSION: 1. Advanced chronic kidney disease. 2. hemodialysis dependent renal failure. 3. Anemia, query cause iron studies. HISTORY OF PRESENT ILLNESS: A 63-year-old female patient with end-stage renal disease, on hemodialysis the patient presented here with lower back pain and clinically revealed a hemoglobin of 6.5 FAMILY HISTORY: REVIEW OF SYSTEMS: As documented in the body of history. All other systems were reviewed and found not to be significantly related to presenting illness. PHYSICAL EXAMINATION: GENERAL: The patient was found not to be in any obvious distress. VITAL SIGNS: Afebrile, temperature 98.2, pulse , blood pressure 135/80. HEENT: Unremarkable. CARDIOVASCULAR: First and second heart sounds were heard. RESPIRATORY: Clear to auscultation. the patient with end-stage renal disease Job ID: [id number]
== END 2019-02-21 18:07 | disposition home or self-care (01) ==
LOC: ERS 07:54 → 2SW 13:35 → T4-B 16:06
PROVIDERS: ADMIT Internal Medicine; ATTEND Internal Medicine
DX: M54.5 Low back pain (principal); M25.551 Pain in right hip; I12.0 Hypertensive chronic kidney disease with stage 5 chronic kidney disease or end stage renal disease; E11.22 Type 2 diabetes mellitus with diabetic chronic kidney disease; N18.6 End stage renal disease; E78.5 Hyperlipidemia, unspecified; J44.9 Chronic obstructive pulmonary disease, unspecified; M71.38 Other bursal cyst, other site; M48.061 Spinal stenosis, lumbar region without neurogenic claudication; K76.0 Fatty (change of) liver, not elsewhere classified; K57.30 Diverticulosis of large intestine without perforation or abscess without bleeding; E66.9 Obesity, unspecified; Z68.33 Body mass index [BMI] 33.0-33.9, adult; Z85.79 Personal history of other malignant neoplasms of lymphoid, hematopoietic and related tissues; Z79.899 Other long term (current) drug therapy; Z88.2 Allergy status to sulfonamides; Z88.5 Allergy status to narcotic agent; Z88.8 Allergy status to other drugs, medicaments and biological substances; Z99.2 Dependence on renal dialysis
CPT/HCPCS: 36430 ×2; 71045; 72100; 72131; 72170; 73502 ×2; 74176; 80048; 80053; 82274; 82306; 82607; 82728; 82962 ×2; 83540; 83550; 85014; 85018; 85025 ×2; 86850; 86900; 86901; 86920; 87086; 94640 ×2; 96374; 97112; 97530; 99285; G0378 ×2; P9016 ×2; 36415; 36416; 81003; 81015; J2405; J7512; J8597

== ENCOUNTER 2019-06-10 10:43 | Outpatient (CLI) | payer MEDICARE, MEDICAID ==
--- NOTE | 2019-06-10 12:03 | RAD ---
XR Bone Survey Adult STANDARD including examination of spine extremities and pelvis. HISTORY: Multiple myeloma. COMPARISON: 09/16/2018 exam. FINDINGS: There are arthritic changes of the spine. There is been development of some minimal cira serina changes these include some minimal compression changes and what appear to be T7 as well as superior endplate compression changes of T12, L1 and L2. There is otherwise no interval change since prior examination. No lytic bony changes are seen within the extremities. Deformity to the tibia stable. IMPRESSION: New minimal compression changes at T7, T12 L1 L2.
== END 2019-06-10 10:44 | disposition home or self-care (01) ==
LOC: BICRAD 10:43
PROVIDERS: ATTEND Internal Medicine Hematology & Oncology
DX: C90.00 Multiple myeloma not having achieved remission (principal)
CPT/HCPCS: 77075

== ENCOUNTER 2019-06-15 03:37 | Inpatient (IN) | payer MEDICARE, MEDICAID ==
[2019-06-15 05:17] LABS: INR-International Normal Ratio 1.3; Prothrombin Time 16.4 SEC (12.0-14.7)
[2019-06-15 05:37] LABS: Hemoglobin 6.8 g/dL (12.0-16.0); Mean Corpuscular HGB CONC 33.2 g/dL (32.0-36.0); Mean Corpuscular Volume 96.6 fL (78.0-98.0); Mean Platelet Volume 13.5 fL (7.4-10.4); Platelet Count 29 thou/uL (130-400); RBC Distribution Width 16.5 % (11.5-14.5); Red Blood Cell (RBC) Count 2.13 mill/uL (4.20-5.40); White Blood Cell (WBC) Count 10.4 thou/uL (4.8-10.8)
[2019-06-15 05:42] LABS: Band 8 % (5-11); Eosinophils 1 % (0-10); Lymphocytes 31 % (21-51); MDiff Complete? YES; Monocytes 8 % (0-10); Neutrophil 52 % (42-75); Platelet Morphology Comment Appears Decreased; Rouleaux Formation SLIGHT = 1-5 cells (100X) (None Seen)
[2019-06-15] MEDS ORDERED: HYDROcodone/Acetaminophen 5/325 mg Tablet ONE (05:44)
[2019-06-15 05:50] LABS: ALT (SGPT) 21 U/L (8-55); AST (SGOT) 39 U/L (5-34); Albumin 2.8 g/dL (3.4-4.8); Alkaline Phosphatase 57 U/L (40-150); Anion Gap 8 mmol/L (10-20); BUN (Urea Nitrogen) 46 mg/dL (9.8-20.1); Bilirubin, Total 0.5 mg/dL (0.2-1.2); Calc. Creatinine Clearance 0 mL/min (70-130); Calcium 9.1 mg/dL (7.8-10.44); Carbon Dioxide 17 mmol/L (23-31); Chloride 108 mmol/L (98-107); Estimated GFR-MDRD 19; Glucose 147 mg/dL (80-115); Potassium 6.2 mmol/L (3.5-5.1); Sodium 127 mmol/L (136-145)
[2019-06-15] MEDS ORDERED: Acetaminophen 1,000 MG in Premix Bag 1 BAG IVPB SCH ×2 (06:00→12:00)
[2019-06-15 06:01] LABS: Magnesium 1.7 mg/dL (1.6-2.6)
[2019-06-15] MEDS ORDERED: hydrALAZINE 20 MG/ML VIAL SLOW IVP PRN (06:03)
[2019-06-15] MEDS ORDERED: Dextrose 50% Abboject 50 ML SYRINGE SLOW IVP PRN (06:03)
[2019-06-15] MEDS ORDERED: Dextrose 5% in Water 1,000 ML IV PRN (06:03)
[2019-06-15] MEDS ORDERED: Sodium Chloride 0.9% 1,000 ML IV SCH ×2 (06:15→08:42)
[2019-06-15 06:21] LABS: Protein, Total 13.8 g/dL (5.8-8.1)
--- NOTE | 2019-06-15 07:14 | HP ---
REQUESTING PHYSICIAN: Dr. Barnhart. CONSULTS: Dr. Lora, Orthopedic Surgery. HISTORY OF PRESENT ILLNESS: This is a 64-year-old female with multiple comorbidities. The patient was attempting to use the restroom when she lost her balance and fell hitting the side of the bathtub. The patient denies any chest pain, shortness of breath, or feeling dizzy prior to falling. The patient is nonambulatory and uses a wheelchair. She is able to transfer herself from wheelchair. She lives at home with her son and has home health daily. The patient denies any loss of consciousness or hitting her head. The patient reported right knee pain after falling. Denies any other complaints. The patient was evaluated in the emergency room and found to have a right distal femur fracture. Orthopedics was consulted by the ER physician. Trauma Services was asked to admit the patient. PAST MEDICAL HISTORY: 1. Multiple myeloma. 2. History of Clostridium difficile colitis. 3. Type 2 diabetes, diet controlled. 4. Hypertension. 5. Hyperlipidemia. 6. Peripheral neuropathy. 7. History of multiple infections in the past. 8. History of chronic kidney disease, previously on dialysis. 9. History of chronic obstructive pulmonary disease, osteoarthritis and gastroesophageal reflux disease. SURGICAL HISTORY: , tubal ligation, colonoscopy, EGD, umbilical hernia repair, left knee surgery. ALLERGIES: CODEINE, MORPHINE, TRAMADOL, VICODIN MAKE HER NAUSEOUS, SULFA. CURRENT MEDICATIONS: 1. Carvedilol 25 mg twice a day. 2. Furosemide 40 mg once a day. 3. Pantoprazole 40 mg daily. 4. Allopurinol 300 mg daily. 5. Fish oil 1000 mg daily. 6. Gabapentin 600 mg twice a day. 7. Potassium 20 mEq daily. 8. Crestor 20 mg daily. 9. Integra Plus 125 mg/1 mg oral once a day. 10. Valsartan 160 mg daily. 11. Florastor 250 mg daily. 12. Humalog 2 units as needed. 13. Loratadine 10 mg daily. REVIEW OF SYSTEMS: A 10-point review of systems is negative unless otherwise indicated in the above HPI. PHYSICAL EXAMINATION: VITAL SIGNS: Pulse 84, blood pressure 130/82, respirations 18, SpO2 of 99% on room air. GENERAL: Elderly-appearing female, no acute distress. HEENT: Head is atraumatic and normocephalic. Conjunctiva pale. No JVD. LUNGS: Diminished in the bases; clear upper lobes; no wheezing, rales or rhonchi. HEART: Regular rate. Regular rhythm. No murmurs. ABDOMEN: Soft, nontender, nondistended. EXTREMITIES: Mild lower bilateral extremity edema, right lower extremity shortened and externally rotated, 2+ distal pulses in all extremities. Sensation intact. NEUROLOGIC: No focal deficits, GCS 15. LABORATORY DATA: WBC 10.4, RBC 2.13, hemoglobin 6.8, hematocrit 20.5, platelets 29. PT 16.4. Sodium 127, potassium 6.2, chloride 108, carbon dioxide 17, anion gap 8, BUN 46, creatinine 3.03, estimated GFR 19, glucose 147. AST 39, albumin 2.8. DIAGNOSTICS: Chest x-ray; no acute pulmonary findings, cardiomegaly. Right knee x-ray; impression: Distal femur fracture. Echocardiogram; sinus rhythm with left atrial enlargement. No T-wave or ST abnormality. IMPRESSION: 1. Status post mechanical fall. 2. Right distal femur fracture. 3. Acute on chronic kidney disease stage 4. 4. Anemia. 5. Hyponatremia, chronic. 6. Hyperkalemia. 7. Thrombocytopenia. 8. Acute traumatic pain. 9. History of multiple myeloma, type 2 diabetes, hypertension, peripheral neuropathy, previous dialysis. PLAN: We will admit the patient to the surgical floor. Waiting for Orthopedics to talk with the patient to decide conservative versus operative repair. We will transfuse 1 unit packed red blood cells. We will speak with the attending about possibly consulting the patient's specialty person, Dr. Jackson and patient's oncologist. Dr. Jones. We will place the patient on a insulin sliding scale. The patient will be n.p.o. at this time pending decision for surgical repair. We will correct electrolytes. The patient will be discussed with the attending after this dictation. Job ID: [id number] MTDD
[2019-06-15 07:54] LABS: Anion Gap 8 mmol/L (10-20); BUN (Urea Nitrogen) 48 mg/dL (9.8-20.1); Calc. Creatinine Clearance 21 mL/min (70-130); Calcium 8.9 mg/dL (7.8-10.44); Carbon Dioxide 17 mmol/L (23-31); Chloride 108 mmol/L (98-107); Estimated GFR-MDRD 19; Glucose 133 mg/dL (80-115); Potassium 5.8 mmol/L (3.5-5.1); Sodium 127 mmol/L (136-145)
--- NOTE | 2019-06-15 07:57 | RAD ---
3 views right knee: 06/15/2019 COMPARISON: None HISTORY: Fall, trauma, pain FINDINGS: There is an obliquely oriented fracture of the distal right femur. This fracture extends in to the right knee joint in the intercondylar region. The medial femoral condyle/distal fracture fragment is displaced medially by approximately 1 cm and posteriorly by approximately 7 mm. There is a prominent associated knee joint effusion. Significant adjacent soft tissue swelling. No evidence for dislocation. There is flattening/height loss involving the medial tibial plateau, not optimally a ssessed on this examination. This is a stable appearance when compared to a bone survey performed 06/10/2019. IMPRESSION: Displaced obliquely oriented intra-articular distal right femur fracture. Orthopedic cons ultation advised.
--- NOTE | 2019-06-15 08:18 | RAD ---
Portable frontal chest radiograph: 06/15/2019 COMPARISON: 05/19/2019 HISTORY: Preoperative patient, distal right femur fracture. FINDINGS: Lungs are clear. Heart and mediastinal contours appear within normal limits. IMPRESSION: No acute findings.
[2019-06-15] MEDS ORDERED: Calcium Chloride 13.6 MEQ in Sodium Chloride 0.9% 100 ML IVPB SCH (08:45)
[2019-06-15] MEDS ORDERED: Sodium Bicarb 50 MEQ/50 ML VIAL IVP SCH (08:45)
[2019-06-15] MEDS ORDERED: Sodium Chloride 0.9% 500 ML IV SCH (08:45)
[2019-06-15] MEDS: Polyethylene Glycol 3350 17 GM Packet PO SCH (09:00)
[2019-06-15] MEDS: Senokot S 8.6-50 MG TAB PO SCH ×2 (09:00→20:46)
--- NOTE | 2019-06-15 09:23 | CON ---
DATE OF CONSULTATION: This is Troy Sanabria PA-C dictating a report for Wade Lora MD. We were asked by Trauma and Emergency Room to see the patient. The patient was attempting to use the bathroom yesterday and she fell in the bathroom, striking the tub. No shortness of breath. No dizziness. There are no precipitating events that led to the fall. She lost her balance. She states she usually uses a wheelchair, but she is able to transfer to the commode, bed, and wheelchair pretty easily. She does have quite a few health issues that Trauma is treating for her. X-ray show a distal femur fracture. She has good sensations down that right lower extremity, but also has quite a bit of pain with any movement. Again, no head injuries or other injuries found and she has no other complaints currently. PAST MEDICAL HISTORY: Multiple myeloma; history of C difficile colitis; diabetes type 2; hypertension; hyperlipidemia; peripheral neuropathy, which is unfortunately progressing per the patient; multiple infections; kidney disease, she has been on dialysis in the past; COPD; GERD; and some arthritis. PAST SURGICAL HISTORY: , tubal ligation, colonoscopy, EGD, umbilical hernia repair, and left knee surgery. ALLERGIES: CODEINE, MORPHINE, TRAMADOL, VICODIN MAKES HER ILL, AND SULFA. CURRENT MEDICATIONS: 1. Carvedilol. 2. Furosemide. 3. Pantoprazole. 4. Allopurinol. 5. Fish oil. 6. Gabapentin. 7. Potassium. 8. Crestor. 9. Integra Plus. 10. Valsartan. 11. Florastor. 12. Humalog. 13. Loratadine. REVIEW OF SYSTEMS: No shortness of breath. No bowel or bladder issues. Currently, main complaint is right knee distal femur pain. She does have some decreased sensations to the lower extremities in her feet. She is still able to move them fairly well. Rest of review of systems negative. PHYSICAL EXAMINATION: GENERAL: Well-nourished appearing female, resting in bed, in room 3323, in no acute distress. Speech clear. Affect pleasant. Answer questions appropriately. She is oriented. HEENT: Normal exam. Face symmetric. Tongue midline. NECK: Supple. Trachea midline. RESPIRATORY: No acute distress. Breathing easily. Respirations 16 a minute. EXTREMITIES: Upper extremities; equal size, shape, symmetry. Normal bulk and tone. Sensations and movements intact. Lower extremities; equal size, shape, symmetry. Normal bulk and tone with the exception of the right lower extremity, which does have some deformity to the distal femur, knee area and some edema. The area is quite tender to palpation and the patient's pain elevates with any kind of movement of the right lower extremity. DP and PT pulses are equal and present. She is able to move her feet and digits, but she does have some diffuse diminished sensation. She is still able to feel pressure to lower extremities. ASSESSMENT: 1. Multiple health issues. 2. Distal femur fracture. PLAN: I spoke with the patient, went over the risks and benefits of surgery. She understands of the fracture and the need to be stabilized, which will help her pain. Her questions and concerns have been addressed. She understands the surgery has been explained and verbal authorization to proceed with surgery has been acquired and the patient is amenable to go forth with surgery. Family will be here later today. We would like to get her on the surgery schedule. We are awaiting for, Trauma is okay to go forth with surgery and make sure that she is cleared and the patient understands that. Dr. Lora also spoke with the patient. Once family comes in later this morning, we will speak with them again. Job ID: [id number]
[2019-06-15] MEDS: Ascorbic Acid 500 mg Chewable Tablet PO SCH ×2 (09:39→21:56)
[2019-06-15] MEDS: Ferrous Sulfate 325 MG TAB PO SCH ×2 (10:04→17:30)
[2019-06-15] MEDS: Sodium Bicarbonate 150 MEQ in Dextrose 5% in Water 1,000 ML IV SCH ×2 (10:22→20:36)
[2019-06-15] MEDS: Acetaminophen 500 MG TAB PO SCH ×3 (12:30→23:11)
--- NOTE | 2019-06-15 15:10 | PRG ---
DATE OF SERVICE: 06/15/2019 SUBJECTIVE: The patient is a 64-year-old female, hospital day #1, status post right distal femur fracture due to ground level fall. She was found to have a hemoglobin of 6.8 and hematocrit of 20.5 this morning, so 2 units of blood was ordered with repeat CBC after transfusion complete. Her potassium was also found to be elevated initially at 6.2, then repeat BMP demonstrated 5.8. Calcium chloride, Kayexalate, and bicarb were ordered and given. Due to the patient's history of chronic kidney disease, previously requiring dialysis, and a current creatinine of 3.05, Nephrology was consulted. Her metal mold dresser doctor is Dr. Jackson. Dr. Jackson ordered calcitriol and had the patient transferred to the [facility] for cardiac monitoring. A Martinez catheter was also inserted today without difficulty. Due to the patient's history of multiple myeloma, Oncology was also consulted today, appreciate recommendations. The patient reported during rounds that her pain is adequately controlled at this time. The patient agreeable to current plan of care of possible surgery tomorrow after medical stabilization. Orthopedic Surgery has consulted the patient, and plans to continue discussions with the patient and her family regarding possible surgery. OBJECTIVE: VITAL SIGNS: Temperature 98.3 Fahrenheit, pulse of 82, respiratory rate of 18, oxygen saturation 96% on room air, and blood pressure 135/75. GENERAL: The patient is lying in bed, in no acute distress at this time. HEENT: Unremarkable. RESPIRATORY: Clear to auscultation, with somewhat decreased breath sounds. CARDIAC: Regular rate and rhythm. No murmurs appreciated. ABDOMEN: Soft and nontender to palpation. Positive bowel sounds. EXTREMITIES: Right lower extremity externally rotated, 2+ distal pulses. LABORATORY AND DIAGNOSTIC DATA: White blood cell count 10.4, hemoglobin 6.8, hematocrit 20.5, platelet count 29. Coagulation, PT 16.4, INR 1.3, PTT 36.0. Sodium 127, potassium 5.8, chloride 108, BUN 48, creatinine 3.05, phosphorus of 6.0, and magnesium 1.7. ASSESSMENT: 1. Status post mechanical fall. 2. Right distal femur fracture. 3. Acute on chronic kidney disease stage 4, previously on dialysis. 4. Anemia with hemoglobin of 6.8. 5. Chronic hyponatremia. 6. Hyperkalemia, potassium of 5.8. 7. Thrombocytopenia, platelet count of 29. 8. Acute traumatic pain. 9. History of multiple myeloma, type 2 diabetes, hypertension, and peripheral neuropathy. PLAN: The patient to receive 2 units of blood with repeat CBC this afternoon for monitoring. Repeat BMP this afternoon; continue to monitor electrolytes and kidney function, Dr. Jackson from Nephrology on board for possible dialysis if needed. The patient reported adequate pain control this morning, we will continue and adjust accordingly. Orthopedic Surgery plans to have further discussions with the patient and family regarding surgery, possibly tomorrow after medical stabilization. Oncology also consult today, appreciate any recommendations. Continue insulin sliding scale for type 2 diabetes at this time. Continue PT/OT. Continue bowel regimen. The patient was seen and evaluated by Dr. Tavares, during morning rounds. Discussed plan of care with the patient and family, who are in agreement. Job ID: [id number] MTDD
[2019-06-15 15:28] LABS: Anion Gap 9 mmol/L (10-20); BUN (Urea Nitrogen) 45 mg/dL (9.8-20.1); Calc. Creatinine Clearance 23 mL/min (70-130); Calcium 9.3 mg/dL (7.8-10.44); Carbon Dioxide 19 mmol/L (23-31); Chloride 109 mmol/L (98-107); Estimated GFR-MDRD 21; Glucose 161 mg/dL (80-115); Potassium 4.6 mmol/L (3.5-5.1); Sodium 132 mmol/L (136-145)
--- NOTE | 2019-06-15 19:59 | CON ---
DATE OF CONSULTATION: CONSULTING PHYSICIAN: Manuel Tovar MD REQUESTING PHYSICIAN: Robert Leyva MD REASON FOR CONSULTATION: Hyperkalemia in a patient with advanced kidney disease. IMPRESSION: 1. Acute on chronic kidney disease, likely an exacerbation of baseline chronic kidney disease, possibly related to the patient's multiple myeloma probably acting up at this point. 2. Hyperkalemia related to problem #1. 3. Metabolic acidosis, compounding the hyperkalemia due to cellular shift of potassium. PLAN: 1. Discontinue normal saline to avoid re-expansion acidosis and worsening of the hyperkalemia. In place of this, we start this patient on a bicarb-based infusion to address the metabolic acidosis and change the cellular shift of potassium. 2. Kayexalate. 3. The patient will benefit from Oncology evaluation as the patient from our indication seems to be having active multiple myeloma. 4. Repeat the chemistry later today to re-evaluate the hyperkalemia. 5. Discontinue potassium supplementation, which may be contributing to the hyperkalemia. HISTORY OF PRESENT ILLNESS: History is that of 64-year-old female patient with known chronic kidney disease and other multiple comorbidities, who was transiently on dialysis and recovered to the point of coming off dialysis recently. The patient, however, sustained a fall and fractured the right distal femur, and on presentation, clinically was noted to have elevated potassium at 6 and acidotic with elevated creatinine above her baseline. As a result of these findings, decision was taken to involve Renal in the management of this case. PAST MEDICAL HISTORY: Significant for multiple myeloma, chronic kidney disease, type 2 diabetes, hypertension, dyslipidemia, and chronic kidney disease. ALLERGIES: CODEINE, MORPHINE, AND TRAMADOL. FAMILY HISTORY: Not significantly related to present illness. REVIEW OF SYSTEMS: As documented in the body of the history. All other systems were reviewed and found not to be significantly related to presenting illness. PHYSICAL EXAMINATION: GENERAL: The patient was found not to be in any respiratory distress, noted with the following vital signs. VITAL SIGNS: Afebrile, blood pressure 135/93, pulse of 101, respiratory rate of 21, and O2 saturation 100%. HEENT: Unremarkable. CARDIOVASCULAR SYSTEM: First and second heart sounds were heard. RESPIRATORY SYSTEM: Clear to auscultation. DIGESTIVE SYSTEM: Revealed a benign abdomen with positive bowel sounds. EXTREMITIES: No peripheral edema. SKIN: No new gross rash. LYMPHATICS: No peripheral lymphadenopathy. SUMMARY: A 64-year-old female patient, who presented here status post fall with right femoral fracture, who is noted to be hyperkalemic and with worsening renal failure as well as severely anemic. Thank you for this consultation. We will follow with you. Job ID: [id number]
[2019-06-15] MEDS ORDERED: Metoclopramide HCl 10 MG TAB PO PRN (21:11)
[2019-06-15] MEDS ORDERED: Zolpidem Tartrate 5 MG TAB PO PRN (21:11)
[2019-06-15] MEDS: traMADol HCl 50 MG TAB PO PRN (21:56)
--- NOTE | 2019-06-15 22:02 | CON ---
DATE OF CONSULTATION: REASON FOR CONSULTATION: Multiple myeloma. HISTORY OF PRESENT ILLNESS: Ms. Huggins is a pleasant 64-year-old female, who was diagnosed with IgG lambda myeloma in 2008. She was recently seen on June 04 after a prolonged absence. She had been off all active therapy for myeloma since September 2018 when she went on hospice. She was recently hospitalized for hemoglobin of 6.4 and received 2 units of packed RBCs. She was been on dialysis for a short period of time, followed by Dr. Jackson. Her performance status has improved since she was last seen and so she was undergoing workup for potential new therapy for her myeloma. She had an SPEP performed, which revealed a m-spike of 7.4. Her IgG was 9,739. She is to have a skeletal survey. Unfortunately, this morning, she fell when she got up to use the bathroom. She has a right distal femur fracture. She has been seen by Orthopedics, who is planning operative repair tomorrow. We were asked to see the patient regarding her myeloma. On this admission, her hemoglobin was 6.8. Her platelet count had dropped to 29,000. She has been transfused 2 units of packed RBCs. She was seen at bedside with her sister present. She denies any complaints at this time. PAST MEDICAL HISTORY: 1. IgG lambda myeloma, last treated in September 2018. 2. Asthma. 3. Hypertension. 4. High cholesterol. 5. Anemia. 6. Peptic ulcer disease. 7. Dyslipidemia. 8. Osteoarthritis. PAST SURGICAL HISTORY: , umbilical hernia repair. ALLERGIES: CODEINE, HYDROCODONE, MORPHINE, SULFA, TRAMADOL. HOME MEDICATIONS: 1. Allopurinol. 2. Norvasc. 3. Carvedilol. 4. Lasix. 5. Gabapentin. 6. Levsin. 7. Integra iron pills. 8. Mobic. 9. Potassium chloride. 10. pills. 11. Ambien. 12. Reglan. 13. Protonix. FAMILY HISTORY: Noncontributory. SOCIAL HISTORY: Single, lives with her son in an apartment. No alcohol, tobacco, or illicit drug use. REVIEW OF SYSTEMS: A 10-point review of systems is negative except for noted in HPI. PHYSICAL EXAMINATION: VITAL SIGNS: Temperature 98.7, pulse 100, respiratory rate 16, BP is 132/75, she is 99% on room air. GENERAL: Well-developed, well-nourished female, in no acute distress. HEENT: Normocephalic, atraumatic. Pupils are equal and reactive to light. NECK: Supple. CV: Regular rate and rhythm. LUNGS: Clear. ABDOMEN: Soft and nontender. Bowel sounds are positive. EXTREMITIES: There is no clubbing, cyanosis, or edema. SKIN: No rash. HEMATOLOGICAL: No petechiae or purpura. NEUROLOGICAL: Nonfocal. PERTINENT LABORATORY DATA AND X-RAYS: WBCs are 10.4, hemoglobin 6.8, hematocrit 20.5, platelet count is 29,000, 52% neutrophils, 8% bands, 31% lymphocytes. PT 16.4, INR is 1.3, and PTT is 36. Chemistry; sodium is 132, potassium 4.6, chloride 109, CO2 is 19, BUN is 45, creatinine 2.79, calcium 9.3, phosphorus 6.0, magnesium 1.7, bilirubin 0.5, AST is 39, ALT is 51, alkaline phosphatase is 57. Serum total protein is 13.8, albumin 2.8, globulin 11. ASSESSMENT: 1. Right distal femur fracture. 2. Untreated multiple myeloma. DISCUSSION: The patient I believe is planning for operative repair of her femur tomorrow. She will need a platelet infusion prior to OR. Would recommended platelet counts at least 100,000 for this surgery. We will continue to monitor her CBC. She may eventually get steroids as an inpatient to help suppress her myeloma as she clearly has marrow involvement. This will be done after her surgery. We will discuss this further with . Thank you for the consult. Job ID: [id number] MTDD
[2019-06-15 22:17] LABS: Platelet Count 25 thou/uL (130-400)
[2019-06-15 22:44] LABS: Hemoglobin 8.5 g/dL (12.0-16.0); Mean Corpuscular HGB CONC 33.7 g/dL (32.0-36.0); Mean Corpuscular Hemoglobin 31.5 pg (27.0-31.0); Mean Corpuscular Volume 93.3 fL (78.0-98.0); Mean Platelet Volume 14.1 fL (7.4-10.4); RBC Distribution Width 15.6 % (11.5-14.5); Red Blood Cell (RBC) Count 2.69 mill/uL (4.20-5.40); White Blood Cell (WBC) Count 10.3 thou/uL (4.8-10.8)
--- NOTE | 2019-06-16 00:45 | PRG ---
DATE OF SERVICE: 06/16/2019 SUBJECTIVE: The patient was admitted earlier this morning, status post ground level fall when she sustained a right distal femur fracture. The patient was also noted to have hyperkalemia and multiple other medical problems in addition to her traumatic injury. The patient was evaluated by Nephrology and Oncology. Her oncologist's evaluations were untreated multiple myeloma. The patient was also noted to be anemic and she was transfused 2 units of packed red blood cells today. In addition, she was noted to suffer from thrombocytopenia. Per recommendation from Oncology, her platelet count should be at least 100,000 for her surgery with Orthopedics. Otherwise, the patient currently is on the critical care unit for close monitoring. The patient at time of visit was awake. She had no complaints. She was having just some Jell-O for nutrition as the nurse reported there was confusion as to whether she was going to have surgery or not today. The patient will likely be able to undergo surgery tomorrow. The Day Team will notify Orthopedics should there be a change. OBJECTIVE: VITAL SIGNS: Stable. The patient is afebrile. GENERAL: The patient is resting comfortably in bed. She is awake and conversant. Her only complaint is her knee pain due to her distal femur fracture. HEENT: Unremarkable. LUNGS: Clear to auscultation with good inspiratory and expiratory effort. HEART: Regular rate and rhythm. ABDOMEN: Soft, nontender, with hypoactive bowel sounds. EXTREMITIES: Neurovascularly intact x4. REPEAT LABORATORY FINDINGS: This evening, white blood cell count 10.3, hemoglobin 8.5, hematocrit 25.1, platelets 25. Sodium 132, potassium 4.6, chloride 109, CO2 of 19, BUN 45, creatinine 2.75, glucose 161. ASSESSMENT AND PLAN: 1. Status post mechanical fall. 2. Right distal femur fracture, awaiting Orthopedic surgery. 3. Frogz-qz-hygxqoe kidney disease, stage IV. 4. Anemia, status post 2 units of packed red blood cells today. 5. Hyponatremia, chronic, improved. 6. Hyperkalemia, resolved. 7. Thrombocytopenia. 8. Acute traumatic pain, improved. Plan will be to continue supportive care. Re-evaluate her laboratories in the morning and make decision on orthopedic surgery at that time. The patient will continue to be followed by Nephrology and Oncology. Postoperatively, we will have the patient work with Physical and Occupational therapy as possible. Job ID: [id number]
[2019-06-16 04:57] LABS: Phosphorus 5.9 mg/dL (2.3-4.7)
[2019-06-16 04:58] LABS: Anion Gap 8 mmol/L (10-20); BUN (Urea Nitrogen) 40 mg/dL (9.8-20.1); Calc. Creatinine Clearance 27 mL/min (70-130); Calcium 8.7 mg/dL (7.8-10.44); Carbon Dioxide 27 mmol/L (23-31); Chloride 101 mmol/L (98-107); Estimated GFR-MDRD 25; Glucose 162 mg/dL (80-115); Magnesium 1.6 mg/dL (1.6-2.6); Potassium 3.5 mmol/L (3.5-5.1); Sodium 132 mmol/L (136-145)
[2019-06-16 05:30] LABS: Hemoglobin 7.5 g/dL (12.0-16.0); Mean Corpuscular Hemoglobin 31.6 pg (27.0-31.0); Mean Platelet Volume 9.9 fL (7.4-10.4); Platelet Count 66 thou/uL (130-400); RBC Distribution Width 15.8 % (11.5-14.5); Red Blood Cell (RBC) Count 2.36 mill/uL (4.20-5.40); White Blood Cell (WBC) Count 9.8 thou/uL (4.8-10.8)
[2019-06-16 05:31] LABS: Band 7 % (5-11); Lymphocytes 20 % (21-51); MDiff Complete? YES; Monocytes 6 % (0-10); Neutrophil 67 % (42-75); Platelet Morphology Comment Appears Decreased; Rouleaux Formation SLIGHT = 1-5 cells (100X) (None Seen)
[2019-06-16] MEDS: Acetaminophen 500 MG TAB PO SCH ×4 (06:20→23:31)
[2019-06-16] MEDS: Sodium Bicarbonate 150 MEQ in Dextrose 5% in Water 1,000 ML IV SCH (06:20)
[2019-06-16] MEDS ORDERED: CEFAZOLIN 2 GM in Premix Bag 1 BAG IVPB SCH (08:15)
[2019-06-16] MEDS ORDERED: Magnesium 2 GM/50 ML 2 GM in Premix Bag 1 BAG IVPB SCH (08:30)
[2019-06-16] MEDS: Ferrous Sulfate 325 MG TAB PO SCH ×2 (09:00→16:35)
[2019-06-16] MEDS: Calcitriol 0.25 MCG CAP PO SCH (09:00)
[2019-06-16] MEDS: Senokot S 8.6-50 MG TAB PO SCH ×2 (09:00→21:07)
[2019-06-16] MEDS: Ascorbic Acid 500 mg Chewable Tablet PO SCH ×2 (09:00→21:07)
[2019-06-16] MEDS: Gabapentin 100 MG CAP PO SCH ×3 (09:00→21:07)
[2019-06-16] MEDS ORDERED: Furosemide 20 MG TAB PO SCH (09:00)
[2019-06-16] MEDS: Polyethylene Glycol 3350 17 GM Packet PO SCH (09:00)
[2019-06-16] MEDS ORDERED: Prevnar 13-Val Conj/PF 0.5 ML SYRINGE IM ONE (09:00)
[2019-06-16] MEDS: Carvedilol 25 MG TAB PO SCH ×2 (09:01→21:07)
[2019-06-16] MEDS: Amlodipine 5 MG TAB PO SCH (09:01)
--- NOTE | 2019-06-16 09:22 | PDOC.MOPN ---
Interval History: resting comfortably - Vital Signs Vital Signs: Vital Signs (12 hours) Temp Pulse Resp BP Pulse Ox 06/16/19 09:01 74 06/16/19 07:34 97.8 F 06/16/19 05:15 97.7 F 10 L 06/16/19 03:34 97.8 F 06/16/19 03:00 97.7 F 06/16/19 02:42 97.8 F 74 10 L 126/74 97 06/15/19 23:40 98 06/15/19 23:37 97.6 F 06/15/19 22:35 98.9 F 80 12 135/106 H 99 Weight Weight 163 lb 2.273 oz Most Recent Monitor Data Heart Rate from ECG 82 NIBP 148/84 NIBP BP-Mean 105 Respiration from ECG 7 SpO2 97 - Physical Exam General: Alert, Oriented x3, No acute distress HEENT: Atraumatic, PERRLA, EOMI, Mucous membr. moist/pink Lungs: Clear to auscultation, Normal air movement Cardiovascular: Regular rate, Normal S1, Normal S2, No murmurs, Gallops, Rubs Abdomen: Normal bowel sounds, Soft, No tenderness, No hepatospenomegaly, No masses Extremities: Other Skin: No rashes, No breakdown, No significant lesion Neurological: Normal gait, Normal speech, Strength at 5/5 X4 ext, Normal tone, Sensation intact, Cranial nerves 3-12 NL, Reflexes 2+ Psych/Mental Status: Mental status NL, Mood NL - Labs Result Diagrams: 06/16/19 04:16 06/16/19 04:16 Lab results: Laboratory Results - last 24 hr 06/16/19 05:27: POC Glucose 172 H 06/16/19 04:16: Phosphorus 5.9 H 06/16/19 04:16: WBC 9.8, RBC 2.36 L, Hgb 7.5 L, Hct 22.0 L, MCV 93.0, MCH 31.6 H , MCHC 34.0, RDW 15.8 H, Plt Count 66 L, MPV 9.9, Neutrophils % (Manual) 67, Band Neuts % (Manual) 7, Lymphocytes % (Manual) 20 L, Monocytes % (Manual) 6, Plt Morphology Comment Appears Decreased L, Rouleaux SLIGHT = 1-5 cells 06/16/19 04:16: Sodium 132 L, Potassium 3.5, Chloride 101, Carbon Dioxide 27, Anion Gap 8 L, BUN 40 H, Creatinine 2.36 H, Estimated GFR (MDRD) 25, Glucose 162 H, Calcium 8.7, Magnesium 1.6 06/15/19 22:06: POC Glucose 188 H 06/15/19 22:03: WBC 10.3, RBC 2.69 L, Hgb 8.5 L, Hct 25.1 L, MCV 93.3, MCH 31.5 H, MCHC 33.7, RDW 15.6 H, Plt Count 25 L*, MPV 14.1 H 06/15/19 15:05: Sodium 132 L, Potassium 4.6, Chloride 109 H, Carbon Dioxide 19 L , Anion Gap 9 L, BUN 45 H, Creatinine 2.79 H, Estimated GFR (MDRD) 21, Glucose 161 H, Calcium 9.3 06/15/19 06:32: Blood Type B POSITIVE, Antibody Screen TNP, Ab Screen Tube Method NEGATIVE, Crossmatch See Detail Status: lab reviewed by me A/P - Problem (1) Femur fracture Current Visit: Yes Code(s): S72.90XA - UNSP FRACTURE OF UNSP FEMUR, INIT ENCNTR FOR CLOSED FRACTURE Status: Acute (2) Anemia, normocytic normochromic Current Visit: No Code(s): D64.9 - ANEMIA, UNSPECIFIED Status: Acute (3) Multiple myeloma Current Visit: No Code(s): C90.00 - MULTIPLE MYELOMA NOT HAVING ACHIEVED REMISSION Status: Chronic - Plan Plan: Patient had good response to platelet transfusion. Will have additional unit during surgery Femur repair planned for today Getting unit of PRBC at this time Will need daily CBC postop as she has bone marrow infiltration of MM and will require further transfusions. will follow
--- NOTE | 2019-06-16 11:29 | PRG ---
DATE OF SERVICE: 06/16/2019 SUBJECTIVE: This patient is a 64-year-old female, hospital day #2, status post right distal femur fracture. The patient's platelets were found to be 25 overnight, and with anticipated surgery and with Oncology's recommendations for the platelets to be >100,000 for surgery, she received 1 unit of platelets overnight. Her platelets this morning were 66 after one unit of platelets, so another unit of platelets is prepared for surgery. Her hemoglobin this morning after 2 units of packed red blood cells yesterday was 7.5, and with anticipated surgery today, she received one more unit with another prepared for surgery. With the interventions yesterday, her potassium normalized to 3.5 and her creatinine decreased to 2.[address] Manuel Tovar from Nephrology is still on board for further recommendations and continues to follow. Oncology continues to follow the patient as well and recommend possible steroids after surgery. The patient reported during rounds that her pain continues to be adequately controlled. The patient is agreeable to current plan of care and possible surgery today. OBJECTIVE: VITAL SIGNS: Temperature 97.8, pulse 56, respiratory rate of 9, O2 saturation of 96% on room air, blood pressure 140/81. GENERAL: The patient is lying in bed, resting comfortably. HEENT: Unremarkable. RESPIRATORY: Clear to auscultation bilaterally. CARDIAC: Regular rate and rhythm. ABDOMEN: Soft and nontender. Positive bowel sounds. EXTREMITIES: Right lower extremity externally rotated, 2+ distal pulses. LABORATORY AND DIAGNOSTIC DATA: White blood cell count 9.8, hemoglobin 7.5, hematocrit 22.0, platelet count 66. Sodium 132, potassium 3.5, chloride 101, carbon dioxide 27, BUN 40, creatinine 2.36, calcium 8.7, phosphorus 5.9, magnesium 1.6. Intake 1555 mL, output 500 mL from Martinez. ASSESSMENT: 1. Status post mechanical fall. 2. Right distal femur fracture, hospital day #2. 3. Acute on chronic kidney disease stage 4, previously on dialysis, improving. 4. Anemia with hemoglobin of 7.5 today. 5. Chronic hyponatremia, sodium improved today to 132 from 127 yesterday. 6. Hyperkalemia, resolved. 7. Thrombocytopenia, status post platelet infusion. 8. Acute traumatic pain, adequately controlled. 9. History of multiple myeloma, diabetes type 2, hypertension, and peripheral neuropathy. PLAN: The patient to get one unit of blood today. Another unit of packed red blood cells and one unit of platelets are ready for surgery. Planned for surgical repair of her right distal femur fracture today. We will continue to monitor BMP for electrolytes and kidney function. Nephrology continues to follow. The patient denied pain this morning. We will continue the pain regimen and adjust accordingly. We will continue to monitor CBC and transfuse if needed packed red blood cells and/or platelets accordingly. Oncology continues to follow at this time, appreciate recommendations. The patient was seen and evaluated by Dr. Tavares during morning rounds. Discussed plan of care with the patient and family who are in agreement. Job ID: [id number] MTDD
--- NOTE | 2019-06-16 13:36 | RAD ---
PORTABLE CHEST 1 VIEW: Date: 06/16/19 Time: 1310 hours HISTORY: Abnormal breath sounds. FINDINGS: The heart size is borderline. The lungs are expanded without lobar consolidation, pneumothoraces, fra nk pulmonary edema, or pleural effusions. There are degenerative changes in the left shoulder joint. IMPRESSION: No acute process. POS: OFF
[2019-06-16] MEDS ORDERED: Fentanyl 100 MCG/2 ML VIAL ONE ×3 (14:06→18:36)
[2019-06-16] MEDS ORDERED: Sodium Chloride 0.9% 1,000 ML IV SCH (14:30)
[2019-06-16] MEDS ORDERED: Promethazine HCl 25 MG/ML VIAL SLOW IVP PRN (16:21)
[2019-06-16] MEDS ORDERED: Ondansetron HCl/PF 4 MG/2 ML Vial IVP PRN (16:21)
[2019-06-16] MEDS ORDERED: Phenylephrine HCL 10 MG/ML VIAL ONE (16:34)
[2019-06-16] MEDS ORDERED: PHENYLEPHRINE-NS 100 MCG/ML 10 ML SYRINGE ONE ×2 (16:35→17:31)
[2019-06-16] MEDS ORDERED: Phenylephrine HCL 10 MG/ML VIAL IV PRN (16:35)
[2019-06-16] MEDS ORDERED: Fentanyl 100 MCG/2 ML VIAL SLOW IVP PRN (16:38)
[2019-06-16 17:09] LABS: Hemoglobin 6.5 g/dL (12.0-16.0); Mean Corpuscular HGB CONC 33.7 g/dL (32.0-36.0); Mean Corpuscular Hemoglobin 30.7 pg (27.0-31.0); Mean Corpuscular Volume 91.3 fL (78.0-98.0); Mean Platelet Volume 8.7 fL (7.4-10.4); Platelet Count 61 thou/uL (130-400); RBC Distribution Width 15.5 % (11.5-14.5); White Blood Cell (WBC) Count 6.1 thou/uL (4.8-10.8)
--- NOTE | 2019-06-16 17:13 | RAD ---
EXAM: 2 views of the right femur HISTORY: ORIF of femur fracture COMPARISON: None FINDINGS: Limited intraoperative fluoroscopic views shows the patient is status post plate and screw fixation of the distal tibial metaphyseal fracture. No perihardware lucency is seen. Degenerative changes are seen in the right knee. IMPRESSION: Status post ORIF of right femur fracture without evidence of complication.
[2019-06-16] MEDS ORDERED: Bupivacaine HCl 0.5%/Epinephrine 1:200,000/PF 30 ml Vial ONE (17:23)
[2019-06-16 17:28] LABS: Anion Gap 5 mmol/L (10-20); BUN (Urea Nitrogen) 37 mg/dL (9.8-20.1); Calc. Creatinine Clearance 32 mL/min (70-130); Calcium 7.8 mg/dL (7.8-10.44); Carbon Dioxide 30 mmol/L (23-31); Chloride 102 mmol/L (98-107); Estimated GFR-MDRD 28; Glucose 133 mg/dL (80-115); Potassium 3.3 mmol/L (3.5-5.1); Sodium 134 mmol/L (136-145)
[2019-06-16] MEDS ORDERED: Ondansetron PF 4 MG/2 ML Vial ONE (17:31)
[2019-06-16] MEDS ORDERED: PROPOFOL 200 MG/20 ML VIAL ONE (17:31)
[2019-06-16] MEDS ORDERED: Rocuronium Bromide 10 MG/ML (10ML VIAL) ONE (17:31)
[2019-06-16] MEDS ORDERED: ePHEDrine 50 MG/ML VIAL ONE (17:31)
[2019-06-16] MEDS ORDERED: Glycopyrrolate 0.2 MG/ML 5 ML SYRINGE ONE (17:31)
[2019-06-16] MEDS ORDERED: Lidocaine 1% PF 5 ML VIAL ONE (17:31)
[2019-06-16 17:36] LABS: Anisocytosis SLIGHT = 6-15 cells (100X) (0-5/hpf); Band 5 % (5-11); Hypochromia SLIGHT = 6-15 cells (100X) (0-5/hpf); Lymphocytes 3 % (21-51); MDiff Complete? YES; Monocytes 3 % (0-10); Neutrophil 89 % (42-75); Platelet Morphology Comment Appears Decreased; Rouleaux Formation SLIGHT = 1-5 cells (100X) (None Seen)
--- NOTE | 2019-06-16 20:21 | PRG ---
DATE OF SERVICE: 06/16/2019 SUBJECTIVE: The patient was seen and examined, seems to be doing much better, noted with the following vital signs. OBJECTIVE: VITAL SIGNS: Afebrile. Blood pressure 140/93, pulse 77, respiratory rate of 16, O2 saturation 95%. HEENT: Unremarkable. CARDIOVASCULAR SYSTEM: First and second heart sounds were heard. RESPIRATORY SYSTEM: Clear to auscultation. DIGESTIVE SYSTEM: Revealed a benign abdomen. Positive bowel sounds. EXTREMITIES: No peripheral edema. SKIN: No new gross rash. LYMPHATICS: No peripheral lymphadenopathy. LABORATORY INVESTIGATIONS: Significant for hemoglobin of 6.5, platelet of 61,000. Chemistry showed a potassium of 3.3, BUN of 37 with a creatinine of 2.12, phosphorus down to 5.9. IMPRESSION: 1. Acute on chronic kidney disease, which has improved. 2. Metabolic acidosis, resolved. 3. Hyperkalemia, now she is hypokalemic. 4. Persistent anemia, partly due to hemodilution after IV fluid as well as potential acute blood loss in the context of femoral fracture. PLAN: 1. The patient has already received an extra unit of blood. 2. Discontinue bicarb infusion. 3. Continue other renal supportive measures. 4. Avoid multiple blood draws to prevent iatrogenic anemia. 5. Further management will be dependent on the clinical course. Job ID: [id number]
[2019-06-16 20:30] LABS: Hemoglobin 7.9 g/dL (12.0-16.0); Mean Corpuscular Hemoglobin 31.9 pg (27.0-31.0); Mean Corpuscular Volume 91.3 fL (78.0-98.0); Mean Platelet Volume 8.4 fL (7.4-10.4); Platelet Count 59 thou/uL (130-400); RBC Distribution Width 14.5 % (11.5-14.5); Red Blood Cell (RBC) Count 2.46 mill/uL (4.20-5.40); White Blood Cell (WBC) Count 8.9 thou/uL (4.8-10.8)
[2019-06-16 20:50] LABS: Band 5 % (5-11); Lymphocytes 19 % (21-51); MDiff Complete? YES; Monocytes 15 % (0-10); Neutrophil 60 % (42-75); Platelet Morphology Comment Appears Decreased; Reactive Lymphocytes 1 % (0-10); Rouleaux Formation SLIGHT = 1-5 cells (100X) (None Seen)
[2019-06-16] MEDS: Ondansetron PF 4 MG/2 ML Vial IVP PRN (21:06)
[2019-06-16] MEDS: CEFAZOLIN 2 GM in Premix Bag 1 BAG IVPB SCH (21:08)
[2019-06-16] MEDS: Sodium Chloride 0.9% 1,000 ML IV SCH (21:13)
--- NOTE | 2019-06-16 21:25 | OP ---
DATE OF PROCEDURE: 06/16/2019 PROCEDURE PERFORMED: Open reduction and internal fixation of right distal femur fracture. PREOPERATIVE DIAGNOSIS: Right distal femur fracture. POSTOPERATIVE DIAGNOSIS: Right distal femur fracture. COMPLICATIONS: None. ESTIMATED BLOOD LOSS: 200 mL. STRUCTURED CABLING TECHNICIAN: Chantale Arellano. IMPLANTS: Synthes 14 hole locking plate, variable angle with multiple locking and nonlocking screws. INDICATIONS: Ms. Huggins is a 64-year-old female, who has fallen and fractured her right distal femur. She was indicated for open reduction and internal fixation to restore anatomic alignment and promote healing. Risks have been reviewed in detail. She has elected to proceed with the operation. DESCRIPTION OF PROCEDURE: Ms. Huggins was identified in the preoperative holding area. Her correct extremity was marked. She was carried to the operating room. She was positioned supine. General anesthesia was induced. A multidisciplinary time-out was performed. The right lower extremity was prepped and draped in sterile fashion. We began the procedure with a lateral approach to the distal femur. We dissected down through the subcutaneous tissues to the fascia, which was opened. We then worked more deeply down to the lateral cortex of the femur. We pulled traction and reduced the fracture. At this point, we slid a 14 hole plate along the lateral cortex proximally. We held this with a K-wire proximally and distally. We took x-rays confirming reduction and plate placement. There were no complications. At this point, we proceeded to place a nonlocking screw proximally, reducing the plate to the bone. We then placed multiple distal locking screws and proximal locking screws. Once we had adequate fixation, we took final x-ray images. We then thoroughly irrigated. We closed at this point with #1 Vicryl suture, 2-0 Vicryl suture, and kel for the skin. A sterile dressing was applied. The patient was taken to the recovery room in good condition. Job ID: [id number]
[2019-06-16] MEDS ORDERED: Hydrocortisone Sod Succ/PF 100 mg/2 ml Vial IVP SCH (23:00)
--- NOTE | 2019-06-17 01:54 | PRG ---
DATE OF SERVICE: 06/17/2019 SUBJECTIVE: The patient is hospital day 2, status post right distal femur fracture from a ground level fall. Today, she underwent operative intervention for this injury. I was called to the PACU by the nurse who reports that the patient's blood pressure had dropped into the 90s and she informed me that Anesthesia had ordered another unit of packed red blood cells for her. The patient had no other reported issues. At the time of my arrival, the patient's systolic blood pressure was above 100. PHYSICAL EXAMINATION: VITAL SIGNS: Stable. The patient is afebrile. GENERAL: The patient is resting comfortably in bed. She is still under the effects of anesthesia. She did wake up, but was understandably confused. She would follow simple commands and appears in no distress. HEENT: Unremarkable. LUNGS: Clear to auscultation bilaterally. HEART: Regular rate and rhythm. ABDOMEN: Soft, flat with hypoactive bowel sounds. EXTREMITIES: Neurovascularly intact x4. Postop dressing is clean, dry, and intact. ASSESSMENT AND PLAN: 1. Status post ground level fall. 2. Status post open reduction and internal fixation of right distal femur fracture. 3. Rxnim-yd-jaccpyo kidney disease stage 4, stable, improving. 4. Anemia, chronic, likely due to her multiple myeloma with acute blood loss anemia due to surgery. 5. Chronic hyponatremia, improved. 6. Hyperkalemia, resolved. 7. Thrombocytopenia, chronic, improved. Plan will be to continue supportive care. The patient is getting a unit of packed red blood cells. We will also check cortisol level as this hypotension may be from adrenal insufficiency. Otherwise, tomorrow the patient will likely begin working with Physical and Occupational Therapy. She will continue to be monitored by Nephrology and Oncology. Job ID: [id number]
[2019-06-17] MEDS: traMADol HCl 50 MG TAB PO PRN (02:54)
[2019-06-17] MEDS: Ondansetron PF 4 MG/2 ML Vial IVP PRN ×3 (02:54→16:19)
[2019-06-17 04:34] LABS: Phosphorus 6.1 mg/dL (2.3-4.7)
[2019-06-17 04:35] LABS: Anion Gap 12 mmol/L (10-20); BUN (Urea Nitrogen) 42 mg/dL (9.8-20.1); Calc. Creatinine Clearance 31 mL/min (70-130); Calcium 7.5 mg/dL (7.8-10.44); Carbon Dioxide 25 mmol/L (23-31); Chloride 104 mmol/L (98-107); Estimated GFR-MDRD 28; Glucose 133 mg/dL (80-115); Magnesium 2.2 mg/dL (1.6-2.6); Potassium 3.6 mmol/L (3.5-5.1); Sodium 137 mmol/L (136-145)
[2019-06-17 05:01] LABS: Band 11 % (5-11); Hemoglobin 8.8 g/dL (12.0-16.0); Lymphocytes 15 % (21-51); MDiff Complete? YES; Mean Corpuscular HGB CONC 34.6 g/dL (32.0-36.0); Mean Corpuscular Hemoglobin 31.1 pg (27.0-31.0); Mean Corpuscular Volume 89.8 fL (78.0-98.0); Mean Platelet Volume 9.1 fL (7.4-10.4); Monocytes 11 % (0-10); Neutrophil 63 % (42-75); Nucleated RBC 1 % (0); Platelet Count 48 thou/uL (130-400); Platelet Morphology Comment Appears Decreased; Red Blood Cell (RBC) Count 2.84 mill/uL (4.20-5.40); Rouleaux Formation SLIGHT = 1-5 cells (100X) (None Seen); White Blood Cell (WBC) Count 8.4 thou/uL (4.8-10.8)
[2019-06-17] MEDS: Acetaminophen 500 MG TAB PO SCH ×3 (05:06→19:16)
[2019-06-17] MEDS: Sodium Chloride 0.9% 1,000 ML IV SCH (05:06)
[2019-06-17] MEDS: CEFAZOLIN 2 GM in Premix Bag 1 BAG IVPB SCH (05:07)
[2019-06-17] MEDS: Morphine 2 MG/ML SYRINGE SLOW IVP PRN ×2 (05:09→16:19)
[2019-06-17] MEDS ORDERED: Hydrocortisone Sod Succ/PF 100 mg/2 ml Vial IVP SCH (07:00)
[2019-06-17] MEDS: Amlodipine 5 MG TAB PO SCH (08:30)
[2019-06-17] MEDS: Ferrous Sulfate 325 MG TAB PO SCH ×2 (08:30→16:19)
[2019-06-17] MEDS: Ascorbic Acid 500 mg Chewable Tablet PO SCH ×2 (08:34→21:28)
[2019-06-17] MEDS: Calcitriol 0.25 MCG CAP PO SCH (08:34)
[2019-06-17] MEDS: Carvedilol 25 MG TAB PO SCH ×2 (08:34→21:28)
[2019-06-17] MEDS: Polyethylene Glycol 3350 17 GM Packet PO SCH (08:35)
[2019-06-17] MEDS: Senokot S 8.6-50 MG TAB PO SCH ×2 (08:35→21:28)
[2019-06-17] MEDS: Gabapentin 100 MG CAP PO SCH ×3 (08:35→21:28)
[2019-06-17] MEDS ORDERED: methylPREDNISolone Sod Succ 40 MG VIAL IVP SCH (10:00)
[2019-06-17] MEDS: Dexamethasone 4 MG TAB PO SCH (10:04)
[2019-06-17] MEDS: Scopolamine 1.5 mg/72 hour Patch TD SCH (10:33)
[2019-06-17] MEDS ORDERED: Metoclopramide HCl 10 MG/2 ML VIAL IVP SCH (14:00)
--- NOTE | 2019-06-17 14:56 | PRG ---
DATE OF SERVICE: 06/17/2019 SUBJECTIVE: The patient is hospital day #3 status post ground level fall when she sustained a right distal femur fracture. Yesterday, she underwent open reduction and internal fixation of same. She tolerated that procedure well. The patient incidentally has untreated multiple myeloma, which is contributed to her anemia requiring blood transfusions to treat her chronic anemia and her acute blood loss anemia. Overnight, she had no issues, though this morning she states that she is still having some significant nausea and occasional vomiting. We have adjusted her Zofran and added Reglan to her regimen. She states that her pain is controlled. She has attempted to work with therapy this morning. OBJECTIVE: VITAL SIGNS: Temperature is 97.2, heart rate 83, blood pressure 132/72, respirations are 16, and oxygen saturation 97% on room air. GENERAL: The patient is resting comfortably in bed; she is awake and appropriate. Trevon Coma Scale is 15. HEENT: Unremarkable. LUNGS: Clear to auscultation with good inspiratory and expiratory effort. HEART: Regular rate and rhythm. ABDOMEN: Soft, flat, and nontender with active bowel sounds. EXTREMITIES: Neurovascularly intact x4. Postoperative dressing is clean, dry, and intact. LABORATORY FINDINGS: White blood cell count 8.4, hemoglobin 8.8, hematocrit 25.5, and platelets are 48. Sodium 137, potassium 3.6, chloride 104, CO2 of 25, BUN 42, creatinine 2.18, glucose 133, magnesium 2.2, phosphorus 6.1, cortisol 7.30. There are no radiographs reviewed this morning. ASSESSMENT: 1. Status post ground level fall. 2. Status post open reduction and internal fixation of right distal femur fracture. 3. Fglcg-nv-ypkxbcr kidney disease stage 4, stable, improving. 4. [QAMARKER] chronic anemia, likely due to her multiple myeloma with acute blood loss anemia due to surgery, stable. 5. Chronic hyponatremia, resolved. 6. Thrombocytopenia, chronic, stable. 7. Adrenal insufficiency. PLAN: Plan will be to continue supportive care. Encourage physical and occupational therapy. We will change her hydrocortisone to dexamethasone for adrenal insufficiency and her thrombocytopenia treatment. Evaluation and examination were done with Dr. Tavares this morning during rounds. Job ID: [id number]
[2019-06-17] MEDS: Cyclobenzaprine 10 MG TAB PO PRN (21:31)
[2019-06-17] MEDS: Acetaminophen 650 MG/20.3 ML UDCUP PO PRN (22:39)
[2019-06-18 00:32] LABS: Bacteria/HPF None Seen HPF (None Seen); Bilirubin Negative (Negative); Blood, Urine 1+ (Negative); Clarity Clear (Clear); Glucose, Urine (Dipstick) Normal (Negative); Leukocyte Negative Leu/uL (Negative); Nitrite Negative (Negative); Protein, Urine (Dipstick) 50 mg/dL (Neg-Trace); RBC/HPF 0-3 HPF (0-3); Squamous Epithelial 0-3 HPF (0-3); Urobilinogen Normal mg/dL (Less than 2)
[2019-06-18] MEDS: Calcitriol 0.25 MCG CAP PO SCH (09:12)
[2019-06-18] MEDS: Ascorbic Acid 500 mg Chewable Tablet PO SCH ×2 (09:12→21:04)
[2019-06-18] MEDS: Carvedilol 25 MG TAB PO SCH ×2 (09:13→21:05)
[2019-06-18] MEDS: Aspirin 81 mg Enteric Coated Tablet PO SCH ×2 (09:13→21:04)
[2019-06-18] MEDS: Ferrous Sulfate 325 MG TAB PO SCH ×2 (09:13→16:27)
[2019-06-18] MEDS: Gabapentin 100 MG CAP PO SCH ×3 (09:13→21:04)
[2019-06-18] MEDS: Amlodipine 5 MG TAB PO SCH (09:13)
[2019-06-18] MEDS: Senokot S 8.6-50 MG TAB PO SCH ×2 (09:13→21:04)
[2019-06-18] MEDS: Polyethylene Glycol 3350 17 GM Packet PO SCH (09:17)
[2019-06-18] MEDS: Dexamethasone 4 MG TAB PO SCH ×3 (09:31→21:04)
[2019-06-18] MEDS: Acetaminophen 650 MG/20.3 ML UDCUP PO PRN ×2 (16:26→21:49)
[2019-06-18 17:41] LABS: Bilirubin Negative (Negative); Blood, Urine Trace (Negative); Clarity Clear (Clear); Glucose, Urine (Dipstick) Normal (Negative); Leukocyte 25 Leu/uL (Negative); Mucous/LPF Rare LPF (<2+); Nitrite Negative (Negative); Protein, Urine (Dipstick) 50 mg/dL (Neg-Trace); RBC/HPF 0-3 HPF (0-3); Squamous Epithelial 0-3 HPF (0-3); Urobilinogen Normal mg/dL (Less than 2)
[2019-06-18] MEDS: Insulin Regular 300 UNITS/3 ML VIAL SC PRN (17:55)
[2019-06-18 17:56] LABS: Bacteria/HPF None Seen HPF (None Seen)
[2019-06-19] MEDS: Insulin Regular 300 UNITS/3 ML VIAL SC PRN ×2 (06:04→11:53)
--- NOTE | 2019-06-19 06:08 | PRG ---
DATE OF SERVICE: 06/19/2019 SUBJECTIVE: The patient is currently hospital day 4 status post ground level fall where she sustained a right distal femur fracture. She is postop day 2 from open reduction and internal fixation of same. The patient also suffers from multiple myeloma, chronic anemia of disease, and chronic kidney disease. The patient over the last several days has been having times of confusion, though she does seem to interact best with her son. By report, the patient did not have any significant issues today. She was not able to participate much with physical therapy. OBJECTIVE: VITAL SIGNS: Stable. The patient is afebrile. GENERAL: The patient is resting comfortably in bed. She is asleep. I did not wake her for an exam. ASSESSMENT: 1. Status post ground level fall. 2. Status post open reduction and internal fixation of right distal femur fracture. 3. Acute on chronic kidney disease, stage 4. 4. Chronic anemia, likely due to her multiple myeloma with acute blood loss anemia due to surgery, stable. 5. Hyponatremia, resolved. 6. Thrombocytopenia, chronic, stable. 7. Adrenal insufficiency, improved. PLAN: Plan will be to continue supportive care, physical and occupational therapy, await placement decision. Job ID: [id number]
[2019-06-19 08:07] LABS: Anion Gap 17 mmol/L (10-20); BUN (Urea Nitrogen) 79 mg/dL (9.8-20.1); Calc. Creatinine Clearance 18 mL/min (70-130); Calcium 7.7 mg/dL (7.8-10.44); Carbon Dioxide 20 mmol/L (23-31); Chloride 103 mmol/L (98-107); Estimated GFR-MDRD 14; Glucose 132 mg/dL (80-115); Magnesium 2.6 mg/dL (1.6-2.6); Phosphorus 7.9 mg/dL (2.3-4.7); Potassium 4.4 mmol/L (3.5-5.1); Sodium 136 mmol/L (136-145)
[2019-06-19 08:26] LABS: Hemoglobin 4.7 g/dL (12.0-16.0); Mean Corpuscular HGB CONC 35.3 g/dL (32.0-36.0); Mean Corpuscular Hemoglobin 32.4 pg (27.0-31.0); Mean Corpuscular Volume 91.8 fL (78.0-98.0); Mean Platelet Volume 9.4 fL (7.4-10.4); Platelet Count 41 thou/uL (130-400); RBC Distribution Width 13.8 % (11.5-14.5); Red Blood Cell (RBC) Count 1.46 mill/uL (4.20-5.40); White Blood Cell (WBC) Count 13.6 thou/uL (4.8-10.8)
[2019-06-19] MEDS: Polyethylene Glycol 3350 17 GM Packet PO SCH (08:43)
[2019-06-19] MEDS: Aspirin 81 mg Enteric Coated Tablet PO SCH (08:43)
[2019-06-19] MEDS: Calcitriol 0.25 MCG CAP PO SCH (08:43)
[2019-06-19] MEDS: Senokot S 8.6-50 MG TAB PO SCH ×2 (08:44→21:10)
[2019-06-19] MEDS: Carvedilol 25 MG TAB PO SCH (08:44)
[2019-06-19] MEDS: Ferrous Sulfate 325 MG TAB PO SCH ×2 (08:44→16:35)
[2019-06-19] MEDS: Ascorbic Acid 500 mg Chewable Tablet PO SCH ×2 (08:45→21:10)
[2019-06-19] MEDS: Amlodipine 5 MG TAB PO SCH (08:45)
[2019-06-19] MEDS: Dexamethasone 4 MG TAB PO SCH ×2 (08:45→21:10)
[2019-06-19 08:47] LABS: Lymphocytes 25 % (21-51); MDiff Complete? YES; Monocytes 8 % (0-10); Neutrophil 67 % (42-75); Platelet Morphology Comment Appears Decreased
[2019-06-19] MEDS: Gabapentin 100 MG CAP PO SCH ×3 (08:49→21:10)
[2019-06-19] MEDS: Acetaminophen 650 MG/20.3 ML UDCUP PO PRN ×2 (09:48→16:35)
[2019-06-19] MEDS: Cyclobenzaprine 10 MG TAB PO PRN (09:48)
--- NOTE | 2019-06-19 12:19 | EKG ---
Test Reason : Blood Pressure : / mmHG Vent. Rate : 085 BPM Atrial Rate : 085 BPM P-R Int : 162 ms QRS Dur : 088 ms QT Int : 380 ms P-R-T Axes : 059 044 070 degrees QTc Int : 452 ms Normal sinus rhythm Possible Left atrial enlargement Borderline ECG Confirmed by SHELLI CACERES M.D. ([id number]), editorial writer MARGE ELLISON ([id number]) on 06/19/2019 12:19:11 PM Referred By: Confirmed By:SHELLI CACERES M.D.
[2019-06-19] MEDS ORDERED: Sodium Chloride 0.9% 500 ML IV SCH (13:30)
[2019-06-19 19:50] LABS: Anion Gap 17 mmol/L (10-20); BUN (Urea Nitrogen) 85 mg/dL (9.8-20.1); Calc. Creatinine Clearance 18 mL/min (70-130); Calcium 7.4 mg/dL (7.8-10.44); Carbon Dioxide 18 mmol/L (23-31); Chloride 100 mmol/L (98-107); Estimated GFR-MDRD 14; Glucose 149 mg/dL (80-115); Potassium 3.8 mmol/L (3.5-5.1); Sodium 131 mmol/L (136-145)
[2019-06-19 20:50] LABS: Hemoglobin 6.4 g/dL (12.0-16.0); Platelet Count 74 thou/uL (130-400)
--- NOTE | 2019-06-20 00:24 | PRG ---
DATE OF SERVICE: 06/19/2019 SUBJECTIVE: The patient is currently on the surgical floor. She is hospital day #5, status post ground level fall in which she sustained a right distal femur fracture. She is postop day 3 from open reduction and internal fixation of that fracture. The patient over the last few days has had slowly declining mentation, and this morning, repeat CBC showed marked anemia likely acute on chronic. The patient has multiple myeloma and recent surgery, so it is probably related to some blood loss anemia. The patient has been transfused 2 units so far after noting that her hemoglobin was 4.7 this morning. The patient is due to receive one more unit today. She also received platelets today. OBJECTIVE: VITAL SIGNS: Stable. Temperature is 98.3. GENERAL: The patient is resting comfortably in bed. She appears much more awake, alert, and appropriate than she has the previous two nights I have seen her. Her son who is at bedside agrees that she had a dramatic improvement today. He feels that she is not quite at her baseline, but has definitely improved. HEENT: Unremarkable. LUNGS: Clear to auscultation with moderate inspiratory and expiratory effort. HEART: Regular rate and rhythm ABDOMEN: Soft, flat, and nontender with active bowel sounds. EXTREMITIES: Neurovascularly intact x4. Right lower extremity is immobilized in a knee immobilizer. ASSESSMENT AND PLAN: 1. Status post ground level fall. 2. Status post open reduction and internal fixation of right distal femur fracture. 3. Acute on chronic kidney disease stage 4. 4. Acute blood loss anemia in addition to chronic anemia, likely due to her multiple myeloma. 5. Hyponatremia. 6. Thrombocytopenia, chronic. 7. Adrenal insufficiency, improved. Plan will be to continue monitoring. We will repeat labs in the morning. Encourage physical and occupational therapy and await placement decision. Job ID: [id number]
[2019-06-20] MEDS: Carvedilol 25 MG TAB PO SCH ×3 (04:51→20:54)
[2019-06-20] MEDS: Insulin Regular 300 UNITS/3 ML VIAL SC PRN ×2 (05:47→20:56)
[2019-06-20 06:58] LABS: Hemoglobin 8.1 g/dL (12.0-16.0); Lymphocytes 15 % (21-51); MDiff Complete? YES; Mean Corpuscular Hemoglobin 31.4 pg (27.0-31.0); Mean Corpuscular Volume 87.3 fL (78.0-98.0); Mean Platelet Volume 7.8 fL (7.4-10.4); Monocytes 9 % (0-10); Neutrophil 76 % (42-75); Platelet Count 65 thou/uL (130-400); Platelet Morphology Comment Appears Decreased; RBC Distribution Width 13.1 % (11.5-14.5); Red Blood Cell (RBC) Count 2.58 mill/uL (4.20-5.40); White Blood Cell (WBC) Count 7.5 thou/uL (4.8-10.8)
[2019-06-20 07:04] LABS: Anion Gap 14 mmol/L (10-20); BUN (Urea Nitrogen) 84 mg/dL (9.8-20.1); Calc. Creatinine Clearance 22 mL/min (70-130); Calcium 7.8 mg/dL (7.8-10.44); Carbon Dioxide 20 mmol/L (23-31); Chloride 102 mmol/L (98-107); Estimated GFR-MDRD 18; Glucose 140 mg/dL (80-115); Magnesium 2.5 mg/dL (1.6-2.6); Phosphorus 6.6 mg/dL (2.3-4.7); Potassium 3.7 mmol/L (3.5-5.1); Sodium 132 mmol/L (136-145)
[2019-06-20] MEDS: Polyethylene Glycol 3350 17 GM Packet PO SCH (09:03)
[2019-06-20] MEDS: Senokot S 8.6-50 MG TAB PO SCH ×2 (09:04→20:55)
[2019-06-20] MEDS: Calcitriol 0.25 MCG CAP PO SCH (09:04)
[2019-06-20] MEDS: Ascorbic Acid 500 mg Chewable Tablet PO SCH ×2 (09:04→20:55)
[2019-06-20] MEDS: Gabapentin 100 MG CAP PO SCH ×3 (09:04→20:54)
[2019-06-20] MEDS: Amlodipine 5 MG TAB PO SCH (09:04)
[2019-06-20] MEDS: Ferrous Sulfate 325 MG TAB PO SCH ×2 (09:04→16:46)
[2019-06-20] MEDS: Scopolamine 1.5 mg/72 hour Patch TD SCH (09:05)
[2019-06-20] MEDS: Dexamethasone 4 MG TAB PO SCH ×2 (09:05→20:55)
--- NOTE | 2019-06-20 13:12 | PRG ---
DATE OF SERVICE: 06/20/2019 SUBJECTIVE: Ms. Huggins is a 64-year-old female, status post ground-level fall and sustained right distal femur fracture. She underwent ORIF of right femur fracture. She also has a history of myeloma with chronic anemia and thrombocytopenia. Postop, the patient developed bleeding of the surgical site and hemoglobin dropped to 4.7 yesterday. The patient got 3 units of red blood cells and 1 unit of platelet transfused yesterday. The patient has been stable overnight. This morning, she reports doing better. She developed no fever or shortness of breath. Her vital signs have been stable. OBJECTIVE: GENERAL: The patient is lying down in bed, comfortable, in no acute distress. VITAL SIGNS: Temperature 98, heart rate 80, respiratory rate 18, O2 saturation 98% on room air, and blood pressure 116/65. LUNGS: Clear bilaterally. HEART: Regular rate and rhythm. ABDOMEN: Soft and nondistended. EXTREMITIES: Right side dressing and knee immobilizer in place. R femur dressing oozing with blood Neurovascularly intact x4. NEUROLOGIC: No focal neurologic deficits. GCS 15. ASSESSMENT: 1. Status post ground-level fall. 2. Status post open reduction and internal fixation of right distal femur fracture. 3. Acute on chronic kidney disease, improved. 4. Acute blood loss anemia on chronic anemia. 5. Multiple myeloma. 6. Adrenal insufficiency, improved. PLAN: Continue supportive care. Continue pain control. Encourage working with PT and OT. We will withhold aspirin for DVT prophylaxis due to thrombocytopenia and the patient will consult with Oncology for plan in the future on severe anemia. Job ID: [id number] MTDD
--- NOTE | 2019-06-21 02:55 | PRG ---
DATE OF SERVICE: 06/21/2019 SUBJECTIVE: The patient is currently on the surgical floor. She continues to make improvement yesterday. She did receive a total of 3 units of packed red blood cells and a unit of platelets. This has definitely contributed to an improvement in her mentation and she was actually able to work with Physical Therapy today. Of note, the patient keeps reporting that the therapists are attempting to have her ambulate, though the son is adamant that she has not ambulated in quite some time and is usually using a wheelchair. He did state though that she is able to stand to do transfers. We will make sure again that the therapists are aware of this. The patient is tolerating a diet. Her pain is controlled. PHYSICAL EXAMINATION: VITAL SIGNS: Stable. The patient is afebrile. GENERAL: The patient is resting comfortably in bed. She is awake, interactive, and appropriate. She does have some memory lapses and will drift sometimes, but is able to be redirected with her son at bedside. HEENT: Unremarkable. LUNGS: Respirations appear effortless. ASSESSMENT AND PLAN: 1. Status post ground level fall. 2. Status post open reduction and internal fixation of right distal femur fracture. 3. Nvxsc-wb-ybixepv kidney disease, stage 4, improved. 4. Hyponatremia, stable. 5. Thrombocytopenia, chronic. 6. Adrenal insufficiency, improved. Plan will be to continue supportive care. Continue to work with Physical and Occupational Therapy and await placement decision. The son would like to discuss placement options with the trauma team and with case management as we pass along to the Day Team. Job ID: [id number]
[2019-06-21 05:25] LABS: #Lymphocytes 1.1 thou/uL (1.20-3.40); #Monocytes 0.5 thou/uL (0.11-0.59); #Neutrophils 4.1 thou/uL (1.40-6.50); %Eosinophils 0.1 % (0.0-10.0); %Lymphocytes 18.9 % (21.0-51.0); %Monocytes 8.2 % (0.0-10.0); %Neutrophils 72.8 % (42.0-75.0); Hemoglobin 6.3 g/dL (12.0-16.0); Mean Corpuscular HGB CONC 35.9 g/dL (32.0-36.0); Mean Corpuscular Hemoglobin 31.8 pg (27.0-31.0); Mean Corpuscular Volume 88.5 fL (78.0-98.0); Mean Platelet Volume 8.2 fL (7.4-10.4); Platelet Count 45 thou/uL (130-400); Red Blood Cell (RBC) Count 1.98 mill/uL (4.20-5.40); White Blood Cell (WBC) Count 5.6 thou/uL (4.8-10.8)
[2019-06-21 05:30] LABS: Anion Gap 11 mmol/L (10-20); BUN (Urea Nitrogen) 77 mg/dL (9.8-20.1); Calc. Creatinine Clearance 33 mL/min (70-130); Calcium 8.1 mg/dL (7.8-10.44); Carbon Dioxide 19 mmol/L (23-31); Chloride 102 mmol/L (98-107); Estimated GFR-MDRD 28; Glucose 177 mg/dL (80-115); Magnesium 2.5 mg/dL (1.6-2.6); Phosphorus 4.9 mg/dL (2.3-4.7); Potassium 3.9 mmol/L (3.5-5.1); Sodium 128 mmol/L (136-145)
[2019-06-21] MEDS: Insulin Regular 300 UNITS/3 ML VIAL SC PRN ×4 (05:37→21:41)
[2019-06-21 08:21] LABS: INR-International Normal Ratio 1.3; Prothrombin Time 15.9 SEC (12.0-14.7)
[2019-06-21 08:22] LABS: PTT 32.3 SEC (22.9-36.1)
[2019-06-21] MEDS: Polyethylene Glycol 3350 17 GM Packet PO SCH (08:52)
[2019-06-21] MEDS: Amlodipine 5 MG TAB PO SCH (08:52)
[2019-06-21] MEDS: Senokot S 8.6-50 MG TAB PO SCH ×2 (08:54→19:53)
[2019-06-21] MEDS: Ferrous Sulfate 325 MG TAB PO SCH ×2 (08:54→17:32)
[2019-06-21] MEDS: Gabapentin 100 MG CAP PO SCH ×3 (08:55→19:52)
[2019-06-21] MEDS: Carvedilol 25 MG TAB PO SCH ×2 (08:55→19:53)
[2019-06-21] MEDS: Calcitriol 0.25 MCG CAP PO SCH (08:55)
--- NOTE | 2019-06-21 10:49 | PRG ---
DATE OF SERVICE: 06/19/2019 SUBJECTIVE: Ms. Huggins is a 64-year-old female, status post ground level fall, sustaining right distal femur fracture. She also has a history of multiple myeloma with _severe, chronic kidney disease, thrombocytopenia, adrenal insufficiency. Postop developed no complaints since last night. Vital signs stable. However, this morning, her hemoglobin result is extremely low at 4.7, platelet is 41,000. She has been ordered and transfused 2 units of blood and 1 unit of platelets. Recheck CBC after blood transfusion. OBJECTIVE: GENERAL: The patient lying down in bed, comfortable, with no acute distress. VITAL SIGNS: Temperature 98, heart rate 86, respiratory rate 18, O2 saturation 94% on room air, and blood pressure 103/63. LUNGS: Clear bilaterally. HEART: Regular rate and rhythm. ABDOMEN: Soft and nondistended. EXTREMITIES: R femur dressing oozing with blood Right lower extremity neurovascularly intact x 4 LABORATORY DATA: White count 13.6, hemoglobin 4.7, HCT is 13.4, and platelet count 41. Sodium 136, potassium 4.4, and creatinine 4.02. ASSESSMENT: 1. Acute blood loss postop. 2. Open reduction and internal fixation of left femur fracture. 3. Acute on chronic kidney disease. 4. Thrombocytopenia. 5. Adrenal insufficiency. PLAN: Will be to transfuse red blood cell and platelet and continue to follow up. Continue fluid resuscitation for acute kidney disease. Contact Ortho. Ortho saw the patient and dressing changing. No plan to go back to the OR at the moment, discontinue aspirin. Continue follow up of vital signs and H and H closely. Job ID: [id number] MTDD
[2019-06-21] MEDS: traMADol HCl 50 MG TAB PO PRN (10:58)
[2019-06-21] MEDS: Sodium Chloride 1 GM TAB PO SCH ×2 (10:58→19:53)
[2019-06-21 11:10] LABS: Hemoglobin 6.3 g/dL (12.0-16.0); Platelet Count 45 thou/uL (130-400)
--- NOTE | 2019-06-21 14:56 | PDOC.MOPN ---
Interval History: Patient sleeping, staff states light oozing of blood from dressing - Vital Signs Vital Signs: Vital Signs (12 hours) Temp Pulse Pulse Pulse Resp BP BP 06/21/19 14:07 98.4 F 74 18 06/21/19 12:03 98.3 F 63 22 H 06/21/19 10:04 71 121/61 06/21/19 08:52 60 145/75 H 06/21/19 08:30 06/21/19 08:20 97.0 F L 57 L 06/21/19 04:52 97.9 F 65 18 BP BP Pulse Ox 06/21/19 14:07 148/76 H 06/21/19 12:03 126/60 97 06/21/19 10:04 06/21/19 08:52 06/21/19 08:30 99 06/21/19 08:20 145/73 H 99 06/21/19 04:52 126/81 96 Weight Weight 170 lb 13.732 oz Most Recent Monitor Data Heart Rate from ECG 100 NIBP 118/82 NIBP BP-Mean 94 Respiration from ECG 19 SpO2 99 - Physical Exam HEENT: Atraumatic, PERRLA, EOMI, Mucous membr. moist/pink Lungs: Clear to auscultation, Normal air movement Cardiovascular: Regular rate, Normal S1, Normal S2, No murmurs, Gallops, Rubs Abdomen: Normal bowel sounds, Soft, No tenderness, No hepatospenomegaly, No masses Extremities: Other Skin: No rashes, No breakdown, No significant lesion Neurological: Normal speech Psych/Mental Status: Mental status NL, Mood NL - Labs Result Diagrams: 06/21/19 11:00 06/21/19 04:34 Lab results: Laboratory Results - last 24 hr 06/21/19 12:07: POC Glucose 242 H 06/21/19 11:00: Hgb 6.3 L, Hct 17.7 L, Plt Count 45 L 06/21/19 08:03: PT 15.9 H, INR 1.3, APTT 32.3 06/21/19 05:36: POC Glucose 211 H 06/21/19 04:34: WBC 5.6, RBC 1.98 L, Hgb 6.3 L, Hct 17.5 L, MCV 88.5, MCH 31.8 H , MCHC 35.9, RDW 13.0, Plt Count 45 L, MPV 8.2, Neutrophils % 72.8, Lymphocytes % 18.9 L, Monocytes % 8.2, Eosinophils % 0.1, Basophils % 0.0, Neutrophils # 4.1 , Lymphocytes # 1.1 L, Monocytes # 0.5, Eosinophils # 0.0, Basophils # 0.0 06/21/19 04:34: Sodium 128 L, Potassium 3.9, Chloride 102, Carbon Dioxide 19 L, Anion Gap 11, BUN 77 H, Creatinine 2.15 H, Estimated GFR (MDRD) 28, Glucose 177 H, Calcium 8.1, Phosphorus 4.9 H, Magnesium 2.5 06/20/19 20:54: POC Glucose 181 H 06/20/19 15:43: POC Glucose 170 H 06/19/19 08:46: Blood Type B POSITIVE, Ab Screen Tube Method NEGATIVE, Crossmatch See Detail Status: lab reviewed by me A/P - Problem (1) Femur fracture Current Visit: Yes Code(s): S72.90XA - UNSP FRACTURE OF UNSP FEMUR, INIT ENCNTR FOR CLOSED FRACTURE Status: Acute (2) Anemia, normocytic normochromic Current Visit: No Code(s): D64.9 - ANEMIA, UNSPECIFIED Status: Acute (3) Multiple myeloma Current Visit: No Code(s): C90.00 - MULTIPLE MYELOMA NOT HAVING ACHIEVED REMISSION Status: Chronic (4) Thrombocytopenia Current Visit: No Code(s): D69.6 - THROMBOCYTOPENIA, UNSPECIFIED Status: Acute - Plan Plan: --Multifactorial anemia - secondary to untreated MM, CKD4, surgery will poss bleeding Recommend CBC and transfusion for hgb < 8. --Thrombocytopenia - from MM. Transfuse for platelets < 20 or bleeding. --Multiple Myeloma - patient will have decadron 40mg for total of 4 days. Other treatment as outpatient Discussed with Dr. Fernandez.
[2019-06-21] MEDS: Acetaminophen 650 MG/20.3 ML UDCUP PO PRN (15:25)
[2019-06-21] MEDS: Dexamethasone 4 MG TAB PO SCH (17:32)
[2019-06-21] MEDS: Ascorbic Acid 500 mg Chewable Tablet PO SCH (17:33)
--- NOTE | 2019-06-21 20:05 | PRG ---
DATE OF SERVICE: 06/21/2019 SUBJECTIVE: The patient is seen and examined, sleepy, but arousable. Otherwise, unremarkable. Noted with the following vital signs. OBJECTIVE: VITAL SIGNS: Afebrile, temperature 97, pulse 65, respiratory rate of 18, blood pressure 126/81. HEENT: Unremarkable. CARDIOVASCULAR: First and second heart sounds were heard. RESPIRATORY: Clear to auscultation. DIGESTIVE SYSTEM: Revealed a benign abdomen. Positive bowel sounds. EXTREMITIES: No peripheral edema. SKIN: No new gross rash. LYMPHATICS: No peripheral lymphadenopathy. IMPRESSION: 1. Chronic kidney disease, stage 4, somewhat stable. 2. Multiple myeloma. I do believe, it is a little bit active. 3. Fracture status post fall. PLAN: 1. Continue current renal supportive measures. 2. Further management to be dependent on the clinical course. Job ID: [id number]
[2019-06-21] MEDS: Cyclobenzaprine 10 MG TAB PO PRN (21:42)
--- NOTE | 2019-06-21 22:22 | PRG ---
DATE OF SERVICE: 06/21/2019 SUBJECTIVE: The patient remains on the surgical floor. She is status post a ground level fall when she sustained a right distal femur fracture, which she has undergone open reduction and internal fixation of same. The patient has been suffering from acute on chronic anemia and has required multiple blood transfusions. The patient was noted to have a hemoglobin of 6.3 this morning and she was transfused another unit of blood. The patient is feeling better again. She is more alert and appropriately conversant. She is tolerating a diet and has had better oral intake today. She states that her pain is controlled. The patient was seen by Oncology today again and they recommended continuation of Decadron and the remainder of their treatment will be outpatient. Nephrology saw her again today and their plan is to continue monitoring. There are no indications for dialysis at this time. OBJECTIVE: VITAL SIGNS: Stable. The patient is afebrile. GENERAL: She is resting comfortably in bed. She is awake and appropriate and more conversant today. HEENT: Unremarkable. LUNGS: Clear to auscultation with good inspiratory and expiratory effort. HEART: Regular rate and rhythm. ABDOMEN: Soft without peritoneal signs with active bowel sounds. EXTREMITIES: Neurovascularly intact x4. Postop dressing is clean, dry, and intact. ASSESSMENT/PLAN: 1. Status post ground level fall. 2. Status post open reduction and internal fixation of right distal femur fracture. 3. Stage 4 chronic kidney disease with acute component, improved. 4. Hyponatremia. 5. Thrombocytopenia, stable. 6. Adrenal insufficiency, resolved. PLAN: Plan will be to continue supportive care. Repeat labs in the morning, physical and occupational therapy, and discuss placement. Job ID: [id number]
[2019-06-22 03:07] LABS: Kappa/Lambda Ratio <0.01 (2.04-10.37)
[2019-06-22] MEDS: traMADol HCl 50 MG TAB PO PRN ×2 (05:25→20:19)
[2019-06-22] MEDS ORDERED: Dexamethasone 4 MG TAB PO SCH (08:00)
[2019-06-22] MEDS: Ascorbic Acid 500 mg Chewable Tablet PO SCH ×2 (08:16→16:18)
[2019-06-22] MEDS: Ferrous Sulfate 325 MG TAB PO SCH ×2 (08:16→16:18)
[2019-06-22] MEDS: Gabapentin 100 MG CAP PO SCH ×3 (08:16→20:20)
[2019-06-22] MEDS: Carvedilol 25 MG TAB PO SCH ×2 (08:16→20:20)
[2019-06-22] MEDS: Amlodipine 5 MG TAB PO SCH (08:16)
[2019-06-22] MEDS: Senokot S 8.6-50 MG TAB PO SCH ×2 (08:16→20:20)
[2019-06-22] MEDS: Calcitriol 0.25 MCG CAP PO SCH (08:16)
[2019-06-22] MEDS: Sodium Chloride 1 GM TAB PO SCH ×2 (08:17→20:20)
[2019-06-22] MEDS: Dexamethasone 4 MG TAB PO SCH ×2 (08:17→16:18)
[2019-06-22] MEDS: Polyethylene Glycol 3350 17 GM Packet PO SCH (08:17)
[2019-06-22 08:26] LABS: Hemoglobin 8.2 g/dL (12.0-16.0)
[2019-06-22 08:27] LABS: Platelet Count 42 thou/uL (130-400)
--- NOTE | 2019-06-22 08:28 | PRG ---
DATE OF SERVICE: 06/21/2019 SUBJECTIVE: Ms. Huggins is 64 years old female, status post ground level fall, sustained right distal femur fracture, underwent ORIF of right femur fracture. She also has history of myeloma, untreated with severe chronic anemia and thrombocytopenia, and she also has acute kidney injury on chronic kidney injury. Postop, the patient's platelets still are dropping low around 40,000 and hemoglobin dropping to 6.3 this morning after a unit of blood transfusion before, during, and after surgery. The patient's vital has been stable. Mental status is stable. She tolerated with her regular diet, and she had only one bowel earlier today. OBJECTIVE: GENERAL: The patient is lying down in bed with no acute distress. VITAL SIGNS: Temperature 98, heart rate 63, respiratory rate 20, O2 saturation 97% on room air, and blood pressure 126/60. LUNGS: Clear bilaterally. HEART: Regular rate and rhythm. ABDOMEN: Soft, nondistended. EXTREMITIES: Right thigh is on splint and knee immobilizer. Dressing is wet with blood. ASSESSMENT: 1. Status post ground level fall. 2. Status post open reduction and internal fixation of right distal femur fracture. 3. Acute on chronic kidney disease, improved. 4. Acute blood loss anemia on chronic anemia. 5. Multiple myeloma, untreated. 6. Adrenal insufficiency, improved. PLAN: Orthopedic will change her dressing tomorrow. Oncology recommendation is to transfuse as needed. We will consider hospice treatment because the patient have severe multiple myeloma, untreated, her thrombocytopenia, her ongoing bleeding, and decreased hemoglobin. We will continue to consult palliative care at the moment. Job ID: [id number]
[2019-06-22] MEDS: Acetaminophen 650 MG/20.3 ML UDCUP PO PRN (08:30)
[2019-06-22 10:01] LABS: Anion Gap 8 mmol/L (10-20); BUN (Urea Nitrogen) 68 mg/dL (9.8-20.1); Calc. Creatinine Clearance 47 mL/min (70-130); Calcium 8.3 mg/dL (7.8-10.44); Carbon Dioxide 19 mmol/L (23-31); Chloride 106 mmol/L (98-107); Estimated GFR-MDRD 43; Glucose 213 mg/dL (80-115); Potassium 4.1 mmol/L (3.5-5.1); Sodium 129 mmol/L (136-145)
[2019-06-22] MEDS: Insulin Regular 300 UNITS/3 ML VIAL SC PRN ×3 (12:11→20:48)
--- NOTE | 2019-06-22 13:42 | PRG ---
DATE OF SERVICE: 06/22/2019 SUBJECTIVE: The patient remains on the surgical floor. She is status post a ground level fall, where she sustained a right distal femur fracture, which she has undergone open reduction and internal fixation of. The patient has been suffering from acute on chronic anemia and has required multiple blood transfusions. The patient was noted to have a hemoglobin of 6.3 yesterday. She was transfused 1 unit of packed red blood cells yesterday afternoon and her hemoglobin is now 8.2 today with platelet count of 42. The patient says she is feeling well and ready to go home. She is more alert and conversant this morning. She is tolerating her diet well. She had a bowel movement this morning. She states her pain is well controlled. The patient was seen by Oncology yesterday and they recommended continuing the Decadron, and she will have further followup outpatient. Nephrology saw her yesterday and they will continue to monitor. Her dressing was changed this morning. The wound is now freshly dressed, clean, dry, and intact with small amounts of blood coming from the surgical site. OBJECTIVE: VITAL SIGNS: Stable. GENERAL: She is resting comfortably in bed. She is awake, alert, and oriented , and more conversant today. LUNGS: Clear to auscultation with good inspiratory and expiratory effort. HEART: Regular rate and rhythm. ABDOMEN: Soft. EXTREMITIES: Neurovascularly intact x4 with a new postop dressing in place and c/d/i. ASSESSMENT: 1. Status post ground level fall. 2. Status post open reduction and internal fixation of right distal femur fracture. 3. Stage 4 chronic kidney disease with acute component, improving. 4. Hyponatremia. 5. Thrombocytopenia, stable number. 6. Adrenal insufficiency, resolved. PLAN: The plan will be to continue supportive care. We will repeat hemogram in the morning. If she remains with a stable hemoglobin that is over 8 for 24 hours, we will discharge tomorrow to SNF. The patient was seen and examined by Dr. Tavares. Job ID: [id number] [facility]
--- NOTE | 2019-06-22 18:39 | PRG ---
DATE OF SERVICE: 06/22/2019 SUBJECTIVE: The patient is seen and examined. Noted with the following vital signs. OBJECTIVE: VITAL SIGNS: Afebrile, temperature 98.1, pulse 63, respiratory rate of 16, O2 saturations 97%, blood pressure 137/83. HEENT: Unremarkable. CARDIOVASCULAR: First and second heart sounds were heard. RESPIRATORY: Clear to auscultation. DIGESTIVE SYSTEM: Benign abdomen with positive bowel sounds. EXTREMITIES: No peripheral edema. SKIN: No new gross rash. LYMPHATICS: No peripheral lymphadenopathy. LABORATORY INVESTIGATION: Hemoglobin of 8.2, platelets 42,000. Chemistry showed creatinine 1.49, BUN 68. IMPRESSION: 1. Mdgxf-ag-gnjbgzv kidney disease, which seems to be improving. 2. Low anion gap metabolic acidosis in the context of multiple myeloma. 3. Femoral fracture, status post full. 4. Multiple myeloma. PLAN: We will continue current renal supportive measures. Further management will be dependent on the clinical course. Job ID: [id number]
--- NOTE | 2019-06-22 22:36 | PRG ---
DATE OF SERVICE: 06/22/2019 SUBJECTIVE: The patient remains on the surgical floor. The patient is status post ground level fall with a right distal femur fracture, the patient is postop day #6, open reduction and internal fixation of right distal femur fracture. The patient is currently awake, alert, sitting up in hospital bed. The patient voices no complaints at this time. Nursing staff states that the patient's right lower extremity dressing had to be changed twice today. States that the wound has soaked through contaminating the knee immobilizer. OBJECTIVE: VITAL SIGNS: Stable, remains afebrile. GENERAL: The patient is resting comfortably in bed, awake, alert, in no distress. LUNGS: Equal chest rise and fall, no respiratory distress. ABDOMEN: Soft, nontender. EXTREMITIES: Neurovascularly intact x4, right lower extremity with knee immobilizer and dressing clean, dry, and intact. ASSESSMENT: 1. Status post ground level fall. 2. Status post open reduction and internal fixation of right distal femur fracture, day 6. 3. Stage 4 chronic kidney disease with acute component, improving. 4. Hyponatremia. 5. Thrombocytopenia, stable. 6. Adrenal insufficiency, resolved. PLAN: Continue supportive care. Continue physical and occupational therapy. We will repeat a hemogram in the morning. If the patient's hemoglobin remains stable, the patient may be discharged to custodial facility. Job ID: [id number]
[2019-06-23 06:14] LABS: Hemoglobin 5.9 g/dL (12.0-16.0); Mean Corpuscular Hemoglobin 31.2 pg (27.0-31.0); Mean Corpuscular Volume 89.4 fL (78.0-98.0); Mean Platelet Volume 8.4 fL (7.4-10.4); Platelet Count 34 thou/uL (130-400); RBC Distribution Width 13.1 % (11.5-14.5); Red Blood Cell (RBC) Count 1.88 mill/uL (4.20-5.40); White Blood Cell (WBC) Count 6.6 thou/uL (4.8-10.8)
[2019-06-23 06:38] LABS: Band 2 % (5-11); Hypochromia SLIGHT = 6-15 cells (100X) (0-5/hpf); Lymphocytes 4 % (21-51); MDiff Complete? YES; Monocytes 1 % (0-10); Neutrophil 93 % (42-75); Nucleated RBC 1 % (0); Platelet Morphology Comment Appears Decreased
[2019-06-23 06:54] LABS: Anion Gap 8 mmol/L (10-20); BUN (Urea Nitrogen) 65 mg/dL (9.8-20.1); Calc. Creatinine Clearance 53 mL/min (70-130); Carbon Dioxide 21 mmol/L (23-31); Chloride 106 mmol/L (98-107); Estimated GFR-MDRD 49; Glucose 154 mg/dL (80-115); Phosphorus 3.9 mg/dL (2.3-4.7); Potassium 4.7 mmol/L (3.5-5.1); Sodium 130 mmol/L (136-145)
[2019-06-23] MEDS: Sodium Chloride 1 GM TAB PO SCH (08:52)
[2019-06-23] MEDS: Calcitriol 0.25 MCG CAP PO SCH (08:52)
[2019-06-23] MEDS: Polyethylene Glycol 3350 17 GM Packet PO SCH (08:52)
[2019-06-23] MEDS: Amlodipine 5 MG TAB PO SCH (08:53)
[2019-06-23] MEDS: Dexamethasone 4 MG TAB PO SCH ×2 (08:53→17:09)
[2019-06-23] MEDS: Senokot S 8.6-50 MG TAB PO SCH ×3 (08:53→20:18)
[2019-06-23] MEDS: Gabapentin 100 MG CAP PO SCH ×3 (08:53→20:18)
[2019-06-23] MEDS: Ferrous Sulfate 325 MG TAB PO SCH ×2 (08:54→17:08)
[2019-06-23] MEDS: Carvedilol 25 MG TAB PO SCH ×2 (08:55→20:18)
[2019-06-23] MEDS: Scopolamine 1.5 mg/72 hour Patch TD SCH (08:57)
[2019-06-23] MEDS: Ascorbic Acid 500 mg Chewable Tablet PO SCH ×2 (09:01→17:08)
--- NOTE | 2019-06-23 09:45 | ULT ---
EXAM: Bilateral lower extremity venous duplex ultrasound with color and spectral Doppler imaging: HISTORY: Post surgery, wound in the right upper lateral leg and right lateral popliteal area, pain COMPARISON: None FINDINGS: Exam was somewhat limited technically because of fairly extensive bandage material and patient positi on Exam performed from the groin to the ankle including the visualized greater saphenous, common femoral , superficial femoral, profunda femoral, popliteal, trifurcation, and posterior tibial veins. There is phasic flow with normal compressibility and normal augmentation at all examined levels. No evidence for intraluminal thrombus. IMPRESSION: No evidence for deep venous thrombosis.
--- NOTE | 2019-06-23 09:57 | PDOC.MOPN ---
Interval History: Patient seen at bedside, no family present. She appears comfortable. - Vital Signs Vital Signs: Vital Signs (12 hours) Temp Pulse Resp BP Pulse Ox 06/23/19 07:18 98.4 F 61 16 129/79 99 06/23/19 04:00 98.3 F 67 16 127/86 97 06/23/19 00:00 98.5 F 68 16 144/84 H 95 Weight Weight 170 lb 13.732 oz Most Recent Monitor Data Heart Rate from ECG 100 NIBP 118/82 NIBP BP-Mean 94 Respiration from ECG 19 SpO2 99 - Physical Exam General: Alert HEENT: Atraumatic, PERRLA, EOMI, Mucous membr. moist/pink Lungs: Clear to auscultation, Normal air movement Cardiovascular: Regular rate, Normal S1, Normal S2, No murmurs, Gallops, Rubs Abdomen: Normal bowel sounds, Soft, No tenderness, No hepatospenomegaly, No masses Extremities: Other Skin: No rashes, No breakdown, No significant lesion Neurological: Normal speech Psych/Mental Status: Mental status NL, Mood NL - Labs Result Diagrams: 06/23/19 05:11 06/23/19 05:11 Lab results: Laboratory Results - last 24 hr 06/23/19 06:55: Blood Type B POSITIVE, Antibody Screen NEGATIVE, Crossmatch See Detail 06/23/19 05:34: POC Glucose 180 H 06/23/19 05:11: WBC 6.6, RBC 1.88 L, Hgb 5.9 L*, Hct 16.8 L, MCV 89.4, MCH 31.2 H, MCHC 35.0, RDW 13.1, Plt Count 34 L, MPV 8.4, Neutrophils % (Manual) 93 H, Band Neuts % (Manual) 2 L, Lymphocytes % (Manual) 4 L, Monocytes % (Manual) 1, Neutrophils # Not Reportable, Lymphocytes # Not Reportable, Nucleated RBCs # ( Man) 1 H, Hypochromia SLIGHT = 6-15 cells, Plt Morphology Comment Appears Decreased L 06/23/19 05:11: Sodium 130 L, Potassium 4.7, Chloride 106, Carbon Dioxide 21 L, Anion Gap 8 L, BUN 65 H, Creatinine 1.32 H, Estimated GFR (MDRD) 49, Glucose 154 H, Calcium 8.0, Phosphorus 3.9, Magnesium 2.0 06/22/19 20:43: POC Glucose 220 H 06/22/19 15:27: POC Glucose 196 H 06/22/19 11:28: POC Glucose 196 H 06/22/19 09:30: Sodium 129 L, Potassium 4.1, Chloride 106, Carbon Dioxide 19 L, Anion Gap 8 L, BUN 68 H, Creatinine 1.49 H, Estimated GFR (MDRD) 43, Glucose 213 H, Calcium 8.3 Status: lab reviewed by me A/P - Problem (1) Femur fracture Current Visit: Yes Code(s): S72.90XA - UNSP FRACTURE OF UNSP FEMUR, INIT ENCNTR FOR CLOSED FRACTURE Status: Acute (2) Anemia, normocytic normochromic Current Visit: No Code(s): D64.9 - ANEMIA, UNSPECIFIED Status: Acute (3) Multiple myeloma Current Visit: No Code(s): C90.00 - MULTIPLE MYELOMA NOT HAVING ACHIEVED REMISSION Status: Chronic (4) Thrombocytopenia Current Visit: No Code(s): D69.6 - THROMBOCYTOPENIA, UNSPECIFIED Status: Acute - Plan Plan: Patient has MM and was referred to hospice in September [address] Jones. She returned to our clinic on 06/04/19 and saw . She was unaccompanied and a poor historian about what had been going on with her over the past 8 months. Review of chart showed 12 admissions to this facility for a various reasons. She has chronic anemia and had 8 PRBC prior to this visit. She had SPEP and immunoglobulins drawn recently which showed a m-spike of 7.4 and IgG of >9700. Unfortunately, she had a fall and has been admitted for distal femur fracture. She's had 9 units of PRBC's this admission. Has continued to ooze from site. Discussed patient with Dr. Fernandez. She likely has marrow replacement due to her significant disease; a qualitative platelet deficit from marked elevation of immunoglobulin causing a bleeding diathesis; renal insufficiency. She will likely be tranfusion dependent. She has significant social issues including transportation problems. She also appears to have a poor understanding of her disease and the recent progression. We feel that she is a poor candidate for any treatment. Recommend inpatient hospice. Discussed with Dr. Tavares and Luanne with Palliative Care. Patient was informed of recommendation. Asked if she would like me to speak with her son. She states she does not want him to know.
--- NOTE | 2019-06-23 10:40 | PRG ---
DATE OF SERVICE: 06/23/2019 SUBJECTIVE: The patient remains on the surgical floor. The patient is status post ground level fall with a right distal femur fracture. The patient is postoperative day 7 of open reduction and internal fixation of right distal femur fracture. The patient is currently awake, alert, and sitting up in the hospital bed. The patient voices no complaints. We discussed with the patient the prognosis presented by Oncology about the worsening of her multiple myeloma and encouraged her to discuss with her son. 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 OBJECTIVE: VITAL SIGNS: Stable. GENERAL: The patient is resting comfortably in the bed, awake, alert, and in no distress. LUNGS: She has equal chest rise and fall with no respiratory distress. ABDOMEN: Soft and nontender. EXTREMITIES: Neurovascularly intact x4. Right knee with immobilizer, and dressing is currently clean, dry, and intact. LABORATORY DATA: She came back with a critical hemoglobin of 5.9 and thrombocytopenia with a platelet count of 34. ASSESSMENT: 1. Status post ground level fall. 2. Status post open reduction and internal fixation of right distal femur fracture, postoperative day 7. 3. Stage 4 chronic kidney disease with acute component, improving. 4. Hyponatremia, improving. 5. Thrombocytopenia. 6. Adrenal insufficiency. 7. History of diabetes, type 2. 8. Hypertension. 9. Hyperlipidemia. 10. Chronic obstructive pulmonary disease. 11. Arthritis. 12. Gastroesophageal reflux disease. PLAN: Continue supportive care. Continue with PT and OT. We will get Palliative to discuss with her more options and continue to talk to her. We are going by the recommendations of Oncology and no longer transfusing the patient, and we will no longer get daily labs. This patient was seen and examined by Dr. Tavares. [facility] [id number] [facility]
--- NOTE | 2019-06-23 11:14 | PDOC.PALCO ---
Palliative Care Consult - Consult Details Requesting Physician: Allen Reason for Consult: goals of care, advance directives assistance - Pertinent HPI 64 year old female who recently fell at home and was evaluated in the emergency room and admitted by trauma serviced for right distal femur fracture. Significant medical history with multiple myeloma greater than 10 years. 13 hospitalizations in the past 8 months. and was recommended by oncology in September 2018 to transition to hospice, however patient sought care through home health. Son is primary caregiver. Spoke with Dr Tavares and David Lim [facility] in relation to limited options for patient. - Pertinent PMH Multiple myeloma, Diabetes II, HTN, Hyperlipidemia, CKD, COPD, GERD. - Social History Smoking: no tobacco exposure Alcohol Use: none Drug Use History: none Living Situation: other (Home with Home health and caregivers. ) - Medications MAR Reviewed: Yes - Allergies Allergies/Adverse Reactions: Allergies Allergy/AdvReac Type Severity Reaction Status Date / Time hydrocodone [From Vicodin] Allergy Verified 06/15/19 06:49 codeine AdvReac Stomach Verified 06/15/19 06:49 Ache morphine AdvReac Stomach Verified 06/15/19 06:49 Ache Sulfa (Sulfonamide AdvReac Stomach Verified 06/15/19 06:49 Antibiotics) Ache tramadol AdvReac Stomach Verified 06/15/19 06:49 Ache - Subjective Awake alert. dressing and brace to right lower extremity. Patient complains of pain to right lower leg that is intermittent, and limited to right lower extremity. Increases with movement. Pain medication mitigates pain. ROS: otherwise than above 10 point review of systems is negative. - Objective Vital Signs: Vital Signs - Most Recent Temp Pulse Resp BP Pulse Ox 98.4 F 61 16 129/79 99 06/23/19 07:18 06/23/19 07:18 06/23/19 07:18 06/23/19 07:18 06/23/19 07:18 Palliative Performance Scale: 50 - Physical Exam Constitutional: mild distress HEENT: moist MMs, EOMI Respiratory: clear to auscultation bilateral, unlabored breathing Cardiovascular: RRR, no significant murmur Gastrointestinal: non-tender, positive bowel sounds Musculoskeletal: pulses present Deviation from normal: limited ROM to right lower extremity Neurological: normal sensation Psychiatric: normal mood - Problem List (1) Palliative care encounter Code(s): Z51.5 - ENCOUNTER FOR PALLIATIVE CARE Current Visit: Yes Status: Acute (2) Femur fracture Code(s): S72.90XA - UNSP FRACTURE OF UNSP FEMUR, INIT ENCNTR FOR CLOSED FRACTURE Current Visit: Yes Status: Acute (3) Anemia, normocytic normochromic Code(s): D64.9 - ANEMIA, UNSPECIFIED Current Visit: No Status: Acute (4) Physical deconditioning Code(s): R53.81 - OTHER MALAISE Current Visit: No Status: Acute (5) Thrombocytopenia Code(s): D69.6 - THROMBOCYTOPENIA, UNSPECIFIED Current Visit: No Status: Acute (6) Multiple myeloma Code(s): C90.00 - MULTIPLE MYELOMA NOT HAVING ACHIEVED REMISSION Current Visit : No Status: Chronic - Plan/Recommendations Plan: Extensive conversation with patient in relation to disease progression, and inability to receive further blood products. Discussed resuscitation status. Patient states she does not wish to have any resuscitation measures carried out if needed. Discussed what patient desires for outcome, she wishes to "go home". Discussed option of Hospice. In discussing barriers that she may have with Hospice care it was identified that her hesitation is who will care for her daughter who has cognitive deficits and resides at the [facility]. Relayed to Shonna Gibson for patient. Patient asked I revisit with her tomorrow morning to discuss Hospice. [90] minutes spent on this encounter with >50% of the time in counseling and coordination of care. Thank you for this very appropriate consult.
[2019-06-23] MEDS ORDERED: Insulin Regular 300 UNITS/3 ML VIAL ONE (15:27)
[2019-06-23] MEDS: Insulin Regular 300 UNITS/3 ML VIAL SC PRN ×3 (15:32→21:43)
[2019-06-23 16:09] LABS: Albumin-Ur 4.1 % (.); Alpha 1 - Ur 1.3 % (.); Alpha 2 - Ur 1.4 % (.); Beta-Ur 3.4 % (.); Gamma-Ur 89.8 % (.); M-Spike,% Note: % (Not Observed); Protein, Urine 940.7 mg/dL (Not Estab.)
[2019-06-23] MEDS: Cyclobenzaprine 10 MG TAB PO PRN (22:06)
[2019-06-23] MEDS: traMADol HCl 50 MG TAB PO PRN (23:24)
--- NOTE | 2019-06-24 01:11 | PRG ---
DATE OF SERVICE: 06/23/2019 SUBJECTIVE: The patient remains on the surgical floor. The patient is status post ground level fall with a right distal femur fracture, open reduction and internal fixation postop day #7. The patient is currently resting comfortably in hospital bed, in no distress. OBJECTIVE: VITAL SIGNS: Stable, afebrile. GENERAL: Resting comfortably in bed, no acute distress, equal chest rise and fall of chest. ASSESSMENT: 1. Status post ground level fall. 2. Status post open reduction and internal fixation of right distal femur fracture postop day #7. 3. Stage 4 chronic kidney disease with acute component, improving. 4. Hyponatremia, improving. 5. Thrombocytopenia. 6. Adrenal insufficiency. 7. History of type 2 diabetes. 8. Hypertension. 9. Hyperlipidemia. 10. Chronic obstructive pulmonary disease. 11. Arthritis. 12. Gastroesophageal reflux disease. PLAN: Continue supportive care. Continue Physical and Occupational Therapy. Continue palliative care. The patient making a decision to possibly go home with hospice. We will no longer obtain daily labs. Job ID: [id number]
[2019-06-24] MEDS: Ferrous Sulfate 325 MG TAB PO SCH ×2 (08:59→16:43)
[2019-06-24] MEDS: Calcitriol 0.25 MCG CAP PO SCH (08:59)
[2019-06-24] MEDS: Polyethylene Glycol 3350 17 GM Packet PO SCH (09:00)
[2019-06-24] MEDS: Gabapentin 100 MG CAP PO SCH ×3 (09:00→21:29)
[2019-06-24] MEDS: Carvedilol 25 MG TAB PO SCH ×2 (09:00→21:29)
[2019-06-24] MEDS: Senokot S 8.6-50 MG TAB PO SCH ×2 (09:00→21:29)
[2019-06-24] MEDS: Ascorbic Acid 500 mg Chewable Tablet PO SCH ×2 (09:00→16:43)
[2019-06-24] MEDS: Amlodipine 5 MG TAB PO SCH (09:00)
--- NOTE | 2019-06-24 12:48 | PRG ---
DATE OF SERVICE: 06/24/2019 SUBJECTIVE: The patient remains on the surgical floor. The patient is status post ground level fall with a right distal femur fracture open reduction and internal fixation, postoperative day #8. The patient is resting comfortably currently in hospital bed, in no distress. OBJECTIVE: VITAL SIGNS: Stable. GENERAL: Resting comfortably in bed, in no acute distress. RESPIRATORY: Equal chest rise and fall with nonlabored breathing. EXTREMITIES: Neurovascularly intact x4 with clean, dry, and intact pressure dressing on the right. ASSESSMENT: 1. Status post ground level fall. 2. Status post open reduction and internal fixation of right distal femur fracture, postoperative day 8. 3. Stage 4 chronic kidney disease with acute component, improving. 4. Hyponatremia, improving. 5. Thrombocytopenia. 6. Adrenal insufficiency. 7. History of type 2 diabetes. 8. Hypertension. 9. Hyperlipidemia. 10. Chronic obstructive pulmonary disease. 11. Arthritis. 12. Gastroesophageal reflux disease. 13. History of multiple myeloma. PLAN: Continue supportive care. Continue PT and OT. The patient will continue talking to Palliative Care, and Case Management will work on placement, possibly home with hospice. This patient was discussed with Dr. Tavares. Job ID: [id number] [facility]
[2019-06-24] MEDS: Cyclobenzaprine 10 MG TAB PO PRN ×2 (13:48→21:39)
[2019-06-24] MEDS: Insulin Regular 300 UNITS/3 ML VIAL SC PRN (13:49)
[2019-06-24 15:15] VITALS: BMI 32.3
--- NOTE | 2019-06-24 16:58 | PDOC.PALFU ---
Palliative Care Follow-up Note Follow up with discussion in relation to goals of care for patient with she and her son. Patient wishes to return home as her primary goal, son supportive in this. Hospice [facility] to visit with family, son is requesting FMLA so that he can be at home with his mother and take her home on hospice to provide optimal end of life and honor her desire to return to the home setting.
[2019-06-25] MEDS: Ferrous Sulfate 325 MG TAB PO SCH (09:36)
[2019-06-25] MEDS: Carvedilol 25 MG TAB PO SCH (09:36)
[2019-06-25] MEDS: Cyclobenzaprine 10 MG TAB PO PRN (09:36)
[2019-06-25] MEDS: Gabapentin 100 MG CAP PO SCH (09:36)
[2019-06-25] MEDS: Ascorbic Acid 500 mg Chewable Tablet PO SCH (09:36)
[2019-06-25] MEDS: Amlodipine 5 MG TAB PO SCH (09:36)
[2019-06-25] MEDS: Calcitriol 0.25 MCG CAP PO SCH (09:37)
[2019-06-25] MEDS: Senokot S 8.6-50 MG TAB PO SCH (09:37)
[2019-06-25] MEDS: Polyethylene Glycol 3350 17 GM Packet PO SCH (09:37)
[2019-06-25 11:20] VITALS: BP 138/88; TEMP 99.7
--- NOTE | 2019-06-26 03:38 | DIS ---
DATE OF ADMISSION: 06/15/2019 DATE OF DISCHARGE: 06/25/2019 ADMISSION DIAGNOSES: 1. Mechanical fall, right distal femur fracture. 2. Acute on chronic kidney injury. 3. Acute blood loss anemia on chronic anemia. 4. Thrombocytopenia. 5. Active multiple myeloma. DISCHARGE DIAGNOSES: 1. Mechanical fall, right distal femur fracture. 2. Acute on chronic kidney injury. 3. Acute blood loss anemia on chronic anemia. 4. Thrombocytopenia. 5. Active multiple myeloma. 6. Failure to thrive. CONSULTING PHYSICIANS: 1. Dr. Delcid of Orthopedic Surgery. 2. Dr. Jackson. 3. of Hem-Onc. PROCEDURES: The patient went to the OR on June 16, 2019 for a right distal femur fracture. HOSPITAL COURSE: The patient is a 64-year-old female, who presented to the emergency department after a mechanical fall. She was found to have a right distal femur fracture. The patient had intermittent bouts of acute blood loss anemia pre and postop, where she received a total of 9 units of packed red blood cells and 2 units of platelets. The patient continues to bleed and of Hematology was consulted for further recommendations. The patient does have a history of active multiple myeloma, for which she was previously on hospice. Hospice was discontinued about 8 months ago. Further recommendations by Hem/Onc demonstrated that the patient was not able to clot and further transfusion would not help her condition. We did consult Palliative Care, who spent time with the patient and her son and ultimately made the patient a DNR and recommended hospice. The patient was discharged home with home hospice and her son was taking time off work to be with her. DISCHARGE DISPOSITION: Home with home hospice. DISCHARGE CONDITION: Poor. PHYSICAL EXAMINATION: VITAL SIGNS: Temperature 98.8, pulse 81, respirations 16, oxygen saturation 99% on room air, blood pressure 141/71. GENERAL: Well-appearing elderly female, sitting up in bed with no signs of acute distress. PULMONARY: Equal chest rise and fall. Clear breath sounds bilaterally. No signs of acute respiratory distress. CARDIAC: Regular rate and rhythm. No murmurs, gallops, or rubs. GASTROINTESTINAL: Abdomen soft, nontender, nondistended. EXTREMITIES: 2+ pulses in all extremities. No significant swelling noted. Gross motor and sensation are intact. NEUROLOGIC: GCS is 15. DISCHARGE INSTRUCTIONS: The patient was discharged home with home hospice. She is nonweightbearing to the right lower extremity. Activity as tolerated. She has a diabetic diet. Recommended a wheelchair. DISCHARGE MEDICATIONS: Include; 1. Tylenol. 2. Amlodipine. 3. Calcitriol. 4. Carvedilol. 5. Flexeril. 6. Gabapentin. 7. Reglan. 8. Scopolamine patch. 9. MiraLAX. 10. Tramadol. 11. Ambien. 12. Tylenol PM. 13. ProAir HFA. 14. Allopurinol. 15. Levsin SL. 16. Vitamins. 17. Protonix. 18. Potassium chloride. 19. vitamins. FOLLOWUP APPOINTMENTS: The patient is to follow up in [address] Delcid. No need for followup with Trauma Surgery. This is merely a summary of the patient's hospitalization. For full details, please see her medical record in its entirety. Job ID: [id number]
== END 2019-06-25 15:23 | disposition hospice, home (50) | DRG 481 ==
LOC: ERS 03:37 → SURG B 05:03 → OBSVTOIN 05:03 → SURG B 05:58 → CCU 10:23 → IMCU/EMU 22:52 → SURG A 06-18 14:48
PROVIDERS: ADMIT Specialist; ATTEND Specialist
PROC: 30233N1 Transfusion of Nonautologous Red Blood Cells into Peripheral Vein, Percutaneous Approach (ICD-10-PCS; 2019-06-15)
PROC: 0QSB04Z Reposition Right Lower Femur with Internal Fixation Device, Open Approach (ICD-10-PCS; principal; 2019-06-16)
PROC: 30233R1 Transfusion of Nonautologous Platelets into Peripheral Vein, Percutaneous Approach (ICD-10-PCS; 2019-06-16)
DX: S72.491A Other fracture of lower end of right femur, initial encounter for closed fracture (principal); N18.4 Chronic kidney disease, stage 4 (severe); E87.1 Hypo-osmolality and hyponatremia; Z51.5 Encounter for palliative care; Z66 Do not resuscitate; N17.9 Acute kidney failure, unspecified; C90.00 Multiple myeloma not having achieved remission; E87.2 Acidosis; D62 Acute posthemorrhagic anemia; E27.40 Unspecified adrenocortical insufficiency; W18.12XA Fall from or off toilet with subsequent striking against object, initial encounter; K21.9 Gastro-esophageal reflux disease without esophagitis; M19.90 Unspecified osteoarthritis, unspecified site; J44.9 Chronic obstructive pulmonary disease, unspecified; E11.42 Type 2 diabetes mellitus with diabetic polyneuropathy; E11.22 Type 2 diabetes mellitus with diabetic chronic kidney disease; I12.9 Hypertensive chronic kidney disease with stage 1 through stage 4 chronic kidney disease, or unspecified chronic kidney disease; D63.1 Anemia in chronic kidney disease; E87.5 Hyperkalemia; E78.00 Pure hypercholesterolemia, unspecified; K27.9 Peptic ulcer, site unspecified, unspecified as acute or chronic, without hemorrhage or perforation; D63.0 Anemia in neoplastic disease; D69.59 Other secondary thrombocytopenia; E87.6 Hypokalemia; Z99.3 Dependence on wheelchair; Y92.012 Bathroom of single-family (private) house as the place of occurrence of the external cause; Z98.51 Tubal ligation status; Z88.5 Allergy status to narcotic agent; Z88.2 Allergy status to sulfonamides; Z79.4 Long term (current) use of insulin; Z79.899 Other long term (current) drug therapy
CPT/HCPCS: 20610; 36415; 36416; 36430; 71045; 76000; 80048; 80053; 81001; 81003; 81015; 82533; 83735; 83883; 84100; 84166; 85014; 85018; 85025; 85049; 85610; 85730; 86335; 86850; 86900; 86901; 87086; 93005; 93970; 99214; C1713; C1769; G0463; J0131; J0360; J0670; J0690; J1040; J1720; J1815; J2001; J2270; J2370; J2405; J2704; J2765; J2920; J3010; J3475; J3490; J7070; J8540; J8597; P9016; P9035